=== PATIENT | female | born 1930 | race Caucasian/White ===

== ENCOUNTER 2016-06-29 14:26 | Inpatient (IN) | payer MEDICARE, BC ==
[~2016-06-29] VITALS: Ht 162.6 cm; Wt 65.1 kg
[~2016-06-29 14:26] MED LIST: ACET-3088 PO; AMIO200T2 PO; ASPI-611 PO; BENZ-16 PEG; CYAN250010 PO; DOCU-168 PO; GUAI-782 PO; LEVO75TA57 PO; MEMA28CA PO; MULT-1243 PO; NITR100C4 PO; SITA1TAB8 PO
--- NOTE | 2016-06-29 14:55 | NUR ---
PROVIDER DR URBAN IN ROOM WITH PT.
[2016-06-29] MEDS ORDERED: LEVO50TA11 PO (15:03)
[2016-06-29] MEDS ORDERED: SITA1TAB2 PO (15:05)
--- NOTE | 2016-06-29 15:12 | NUR ---
LAB AT BEDSIDE FOR BLOOD DRAW.
[2016-06-29 15:28] LABS: BASOPHILS % (AUTO) 0.6 % (0-2); EOSINOPHILS # (AUTO) 0.2 T/MM3 (0-0.5); EOSINOPHILS % (AUTO) 2.7 % (0-4); HCT - HEMATOCRIT 39.2 % (36-46); HGB - HEMOGLOBIN 12.8 GM/DL (12-16); IMMATURE GRANULOCYTE # (AUTO) 0.03 T/MM3 (0.00-0.03); IMMATURE GRANULOCYTE % (AUTO) 0.4 % (0.0-0.5); LYMPHOCYTES # (AUTO) 1.4 T/MM3 (1-4.8); LYMPHOCYTES % (AUTO) 19.2 % (23-45); MEAN CORPUSCULAR HGB 31.1 UUG (26-34); MEAN CORPUSCULAR HGB CONC(MCHC 32.7 GM/DL (31-37); MEAN CORPUSCULAR VOLUME 95.1 UM3 (80-100); MEAN PLATELET VOLUME 8.7 UM3 (9.4-12.4); MONOCYTES # (AUTO) 0.5 T/MM3 (0-0.8); MONOCYTES % (AUTO) 7.3 % (0-9.0); NEUTROPHILS #(AUTO)-ABSOLUTE 4.9 T/MM3 (1.8-7.7); NEUTROPHILS % (AUTO) 69.8 % (33-66); RED BLOOD COUNT 4.12 M/MM3 (4.00-5.20)
[2016-06-29 15:40] LABS: ALBUMIN 3.3 G/DL (3.5-5.0); ALBUMIN/GLOBULIN RATIO 1.1 RATIO (1.1-2.2); ALKALINE PHOSPHATASE 71 U/L (38-126); ALT (SGPT) 25 U/L (9-52); ANION GAP 11 MEQ/L (5-15); AST (SGOT) 30 U/L (14-36); BUN/CREATININE RATIO 24 RATIO (6-26); CALCIUM 8.8 MG/DL (8.4-10.2); CHLORIDE 109 MEQ/L (98-107); CO2 - CARBON DIOXIDE 25 MEQ/L (22-30); CREATININE 0.8 MG/DL (0.7-1.2); GLOMERULAR FILTRATION RATE 68; GLUCOSE 129 MG/DL (65-110); POTASSIUM 4.5 MEQ/L (3.6-5); SODIUM 145 MEQ/L (134-144); TOTAL PROTEIN 6.3 G/DL (6.3-8.2)
--- NOTE | 2016-06-29 15:43 | NUR ---
LAB AT BEDSIDE FOR REDRAW.
--- NOTE | 2016-06-29 15:53 | NUR ---
RADIOLOGY PT TO RADIOLOGY BY CART AT THIS TIME.
[2016-06-29 16:00] LABS: BLOOD, URINE NEGATIVE (NEGATIVE); COLOR,URINE YELLOW (YELLOW); LEUKOCYTE ESTERASE ,URINE NEGATIVE (NEGATIVE); NITRITE,URINE NEGATIVE (NEGATIVE); UROBILINOGEN,URINE 0.2 EU/DL (NORMAL)
--- NOTE | 2016-06-29 16:37 | NUR ---
PROVIDER DR. URBAN AT BEDSIDE TO SPEAK WITH PT AND FAMILY.
--- NOTE | 2016-06-29 17:02 | ERPDOC ---
Departure Disposition Decision Date: Jun 29, 2016 Disposition Decision Time: 16:40 Disposition: [facility] TO [facility] Impression Impression Impression: Primary Impression: Syncope Syncope type: unspecified Qualified Codes: R55 - Syncope and collapse Severity: Moderate Condition: Improved Seen By: Physician only Referrals: NINA GUTIERREZ MD (Family) Problems/Meds/Labs Reviewed?: Yes Medications reviewed and manag: Yes Follow up care ordered?: Yes Mental Status: Alert, Confused HPI - General Medical General Chief Complaint: Altered Mental Status Stated Complaint: SYNCOPE, AMS Time Seen by Provider: 14:41 Source: patient, family, EMS Exam Limitations: dementia HPI - General Medical Initial Comments 86-year-old female presents to the emergency department with a chief complaint of a syncopal episode while sitting on the toilet and having her daughter drying her hair earlier today. Patient did not fall from the toilet. Patient has a history of syncopal episodes in the past associated with urinary tract infection. Daughter states the patient was unresponsive for a longer time frame than normal and was slightly more confused than baseline when the patient awoke. Patient denies any pain or discomfort. No other complaints or associated symptoms. No exacerbating or remitting factors. Patient was at home when her symptoms began. Symptoms have improved prior to arrival to the emergency department. Patient was transported by EMS to [facility]. Patient is a DO NOT RESUSCITATE. Occurred At: home Allergies: Coded Allergies: lisinopril (Verified Allergy, Severe, 06/29/16) Past History Patient Surgical History Lab briseyda KEVIN Past Medical History Metabolic: diabetes, hypercholesterolemia, hypertension, hypothyroidism Cardiac: A-fib GI: constipation Neurological: CVA, TIA Psychological: dementia Surgical History General: colonoscopy, gallbladder Cardiac: other Reproductive/: hysterectomy Joint: knee Family History Family PMH: FOUND: other Vaccines Hx Influenza Vaccination: Yes (02/2016) Hx Pneumococcal Vaccination: No (unsure) Social History Smoking Status: Never smoker Does patient use chewing tobac: No Second Hand Exposure: No Substance Use Type: does not use Alcohol Intake: none Marital Status: Housing: house Household Members: family Review of Systems Constitutional Constitutional: DENIES: chills, fever Eyes General: DENIES: erythema, exudate Lids/Accessories: DENIES: erythema, swelling Vision: DENIES: acuity, blurring ENMT Ears: DENIES: drainage, erythema Hearing: DENIES: hearing loss Balance: DENIES: ataxia, falling to one side Sinuses: DENIES: congestion, pain Nose: DENIES: nosebleeds, pain Mouth/Throat: DENIES: painful swallowing, sore throat Teeth: DENIES: pain Jaw: DENIES: pain Cardiovascular Cardiac: DENIES: chest pain, dyspnea on exertion Rhythm/Rate: DENIES: irregular beat, palpitations Vascular: DENIES: pedal edema, unilateral swelling Pulmonary Respiratory: DENIES: cough, dyspnea, pleuritic chest pain, sputum GI Upper Abdomen: DENIES: nausea, pain, vomiting Lower Abdomen: DENIES: diarrhea, pain General: DENIES: dysuria, urgency Musculoskeletal General: DENIES: pain, tenderness Integumentary Skin: DENIES: itching, rash Neurological General: DENIES: headache, numbness, weakness Psychiatric Psychiatric: DENIES: emotional instability, suicidal ideation/attempt Endocrine Endocrine: DENIES: polydipsia, polyphagia Hematologic/Lymphatic Hematologic/Lymphatic: DENIES: frequent nosebleeds, lymphadenopathy Allergic/Immunological Allergic/Immunoligical: DENIES: frequent infections, hives Physical Exam General General Nourishment: well nourished, well developed, appears stated age, no acute distress, adult General Body Habitus: well groomed Vitals and Pain First Documented Vital Signs Date Time Temp Pulse Resp B/P Pulse Ox O2 Delivery O2 Flow Rate FiO2 06/29/16 14:30 98.3 72 14 115/97 94 Room Air Weight: Kilograms: 64.500 Height (feet): 5 Height (inches): 5.00 Triage Pain Scale: RN VS reviewed by Provider: Yes Normal Exams: Head: Normocephalic w/o trauma Eyes: Pupils are PERRLA w/ EOMI, No scleral icterus, irritation, or foreign bodies noted ENMT: No facial trauma, nasal exudates, pharyngeal erythema, or exudates are noted Dental: No fractured, loose, or missing teeth noted Neck: Full range of motion, without adenopathy, JVD, bruits or thyromegaly Chest/Resp: Clear all gaines, with good airflow, and symmetry bilaterally CV: Regular rate and rhythm, without murmur or gallop, Pulses 2+ all extremities, capillary refill, <2 seconds all ext., no pedal edema noted Abdomen: Bowel sounds positive, soft, non-tender, non-distended, no hepatosplenomegaly, masses or bruits noted Lymphatic: No lymphadenopathy, or lymphedema noted Musculoskeletal: No tenderness, or deformity noted, good range of motion, all extremities Integumentary: No rashes, hives, or bruising noted, hair and nails, without abnormality Neurologic: Patient is alert Psychiatric: Patient exhibits, appropriate attention, emotion and affect Neck (brief) Neck: NOT FOUND: tenderness Neurologic (brief) Comments Patient is alert and oriented times 2-3. No focal neurologic deficit observed. Differential Diagnoses Considering: Hypo/Hyperglycemia, Medication Effect, Metabolic, UTI, Other ( Syncope) Progress Results/Orders Orders Procedure Category Date Status Time Cbc W/Auto LAB 06/29/16 Complete Diff-Reflex Manual Cmp - Comprehensive LAB 06/29/16 Complete Metabolic Troponin I W LAB 06/29/16 Complete Hemolysis Index Catheterize For Ua TRAVIS 06/29/16 In Process 15:00 Ua, Dip Wreflex LAB 06/29/16 Complete Microsc & Laborer [employer] Crew 15:00 EKG EKG 06/29/16 Taken Chest 1 View RAD 06/29/16 Taken 15:00 Ct Head W/O Contrast CT 06/29/16 Taken 15:00 Ct Cervical Spine W/O CT 06/29/16 Taken Contrast 15:00 Lab Results Laboratory Tests Test 06/29/16 15:28 06/29/16 15:41 White Blood Count 7.0T/MM3 Red Blood Count 4.12M/MM3 Hemoglobin 12.8GM/DL Hematocrit 39.2% Mean Corpuscular Volume 95.1UM3 Mean Corpuscular Hemoglobin 31.1UUG Mean Corpuscular Hemoglobin Concent 32.7GM/DL RDW Standard Deviation 46.6FL Platelet Count 186T/MM3 Mean Platelet Volume 8.7UM3 Immature Granulocyte % (Auto) 0.4% Neutrophils (%) (Auto) 69.8% Lymphocytes (%) (Auto) 19.2% Monocytes (%) (Auto) 7.3% Eosinophils (%) (Auto) 2.7% Basophils (%) (Auto) 0.6% Absolute Immature Granulocyte (auto 0.03T/MM3 Absolute Neutrophils (auto) 4.9T/MM3 Absolute Lymphocytes (auto) 1.4T/MM3 Absolute Monocytes (auto) 0.5T/MM3 Absolute Eosinophils (auto) 0.2T/MM3 Absolute Basophils (auto) 0.0T/MM3 Turbidity < 20 Sodium Level 145MEQ/L Potassium Level 4.5MEQ/L Chloride Level 109MEQ/L Carbon Dioxide Level 25MEQ/L Anion Gap 11MEQ/L Blood Urea Nitrogen 19.0MG/DL Creatinine 0.8MG/DL Glomerular Filtration Rate Calc 68 BUN/Creatinine Ratio 24RATIO Glucose Level 129MG/DL Calculated Osmolality 283MOSM/KG Calcium Level 8.8MG/DL Total Bilirubin 0.90MG/DL Icterus Index < 2 Aspartate Amino Transf (AST/SGOT) 30U/L Alanine Aminotransferase (ALT/SGPT) 25U/L Alkaline Phosphatase 71U/L Troponin I < 0.012ng/ml Total Protein 6.3G/DL Albumin 3.3G/DL Globulin 3.0G/DL Albumin/Globulin Ratio 1.1RATIO Chemistry Specimen Hemolysis 40 Urine Collection Type Straight cath Urine Color Yellow Urine Turbidity Clear Urine pH 7.0 Urine Specific [place] 1.015 Urine Protein Negative Urine Glucose (UA) Negative Urine Ketones Negative Urine Blood Negative Urine Nitrite Negative Urine Bilirubin Negative Urine Urobilinogen 0.2EU/DL Urine Leukocyte Esterase Negative Urinalysis Comment Microscopic not ind. Progress Progress Labs/imaging were discussed in detail with the patient and family and questions are answered. Patient is given IV hydration gently in the emergency department. Patient is still "more confused than normal" per daughter. Patient is discussed with Dr. Box and will be admitted to the hospitalist service in observation status for further evaluation and treatment. Patient and family are in agreement with the current plan of management. Patient is admitted to the hospital in improved condition. No further orders from accepting physician who is in agreement with the current plan of management. EKG EKG : Rate: 60-100 Rhythm: sinus [place]: normal QRS: normal Intervals: normal ST/T: non-specific changes Interpreted by: signing physician Xray Xray : Xray: CXR Portable Interpretation: Normal, Interpreted by Ak CT CT : CT: Head no contrast Interpretation: Normal (cervical spine: Negative.), Reviewed Written Report CASSANDRA URBAN DO Jun 29, 2016 17:02
--- NOTE | 2016-06-29 17:13 | NUR ---
REPORT CALLED TO CELIO MAGDALENO ON MEDICAL UNIT. DENIES QUESTIONS.
--- NOTE | 2016-06-29 17:20 | NUR ---
IVF ORDERS REC'D TO STOP IVF AFTER APPROX. 800CC TOTAL IVF INFUSED FROM EMS BAG AT THIS TIME.
--- NOTE | 2016-06-29 17:30 | NUR ---
ADMIT PT TAKEN TO MEDICAL UNIT, RM 159 BY CART PER THIS RN AT THIS TIME. PT SLID TO MEDICAL BED WITH DRAW SHEET. PT CONTINUES TO DENY COMPLAINT.
[2016-06-29 17:36] VITALS: BP 133/73; PULSE 80; RESP 18; TEMP 98.5; O2SAT 98
[2016-06-29 17:41] VITALS: Ht 162.6 cm; Wt 65.1 kg
--- NOTE | 2016-06-29 18:10 | NUR ---
admit Pt to room at 1730 via cart, daughter with her. V/S taken and stable on RA. Pt A/O x2(year ?). Admission HX taken with daughters help.
[2016-06-29] MEDS ORDERED: NORMAL SALINE 1,000 ML IV ONE (18:15)
--- NOTE | 2016-06-29 19:02 | NUR ---
Ambulation Able to ambulate to restroom with gait belt and one person assist.
[2016-06-29] MEDS ORDERED: ACETAMINOPHEN 325 MG TABLET PO PRN (20:00)
[2016-06-29] MEDS ORDERED: MILK OF MAGNESIA 30 ML SUSP PO PRN (20:00)
--- NOTE | 2016-06-29 20:10 | HPPDOC ---
HPI - Adult Date DATE: 06/29/16 TIME: 19:34 General Chief Complaint: syncope History of Present Illness Mrs. La is an 86-year-old female with severe aortic stenosis managed by Dr. Garcia. Her daughter provides history indicating that the valve is not thought to be surgically manageable. She has had abrupt syncopal episodes twice previously in August and March 2016 and was found to have urinary tract infections on both occasions. She is currently being treated for UTI with Macrobid after failing Bactrim and Cipro. She has been less conversant and more confused than normal recently per history of her home caregivers but oral intake has been good and there is been no nausea or diarrhea. This morning after having usual breakfast and bathing the patient lost consciousness while seated. Her daughter reports that she was calm and her mother's hair at which time her mother's eyes rolled back in her head slumped backwards into the right striking the wall. EMS was summoned and the patient was hypotensive when they arrived and remained minimally responsive on arrival in the ER. With prior syncopal episodes the patient has regained consciousness and returned to usual level mental status quickly. Her evaluation was unremarkable including noncontrast CT head without acute pathology. Cervical spine CT without acute pathology, and unremarkable labs including urinalysis. The patient received some IV fluids which seemed to help but because she remained dull and less interactive than normal she is being hospitalized on an observation basis for further monitoring. The patient's daughter supplementally reports that the patient's blood pressure was low when EMS arrived although value is uncertain. Initial blood pressure in the emergency room was 115/97 and has remained stable since arrival. Patient provides virtually no history and responds no the few questioned she does answer including whether she had chest pain, lightheadedness, nausea, or remembers feeling poorly earlier today. Past Medical History Past Medical History Severe Aortic Stenosis. Dr. Garcia Hypothyroid Hemorrhagic stroke in 2011 History atrial fibrillation Hypotension Recurrent urinary tract infections Dementia Diabetes mellitus RSV bronchitis-May 2016 Surgical History Patient's Surgical History: Lap briseyda KEVIN Right TKA Current Medications Home Meds Reported Medications Sitagliptin Phos/Metformin HCl (Janumet 50-500 mg Tablet) 1 Tab Tablet, 1 TAB PO BID 06/29/16 Levothyroxine Sodium (Levothyroxine Sodium) 50 Mcg Tablet, 50 MCG PO ACB 3/11/17 Nitrofurantoin Monohyd/M-Cryst (Macrobid 100 mg Capsule) 100 Mg Capsule, 100 MG PO BID 05/22/16 Cyanocobalamin (Vitamin B-12) (Vitamin B12) 2,500 Mcg Tablet, 2500 MCG PO DAILY 03/31/16 Multivits-Min/FA/Lycopene/Lut (Centrum Silver Tablet) 1 Each Tablet, 1 TAB PO DAILY 03/31/16 Amiodarone HCl (Amiodarone HCl) 200 Mg Tablet, 100 MG PO DAILY 03/31/16 Docusate Sodium (Colace) 100 Mg Capsule, 100 MG PO DAILY, CAP 09/05/15 Memantine HCl (Namenda Xr) 28 Mg Cap.spr.24, 28 MG PO DAILY, CAP 09/05/15 Aspirin (Aspirin) 81 Mg Tablet, 81 MG PO DAILY 09/04/12 Allergies: Coded Allergies: lisinopril (Verified Allergy, Severe, 06/29/16) Family History Family History: Sister had colon cancer Social History Smoking Status: Never smoker Does patient use chewing tobac: No Second Hand Exposure: No Substance Use Type: does not use Alcohol Intake: none Marital Status: Housing: house (lives with daughter, caretakers when daughter unavailable) Household Members: family Advance Directives: Yes DPOA for Healthcare Only (daughter), Yes Limited Code ( chemical code only-no CPR/intubation/defibrillation) Social History Comments PCP-Dr. Caballero Cardiology-Dr. Sage Garcia Review of Systems Unable to Obtain ROS Due to: clinical condition, dementia All Other Systems Comments Limited review of systems provided by the patient's daughter and shank archer to indicate the patient always complains of feeling cold and tired. She was constipated last week and had difficulty with hemorrhoids with small amount of rectal bleeding. She was given milk of magnesia daily but has not had any diarrhea as a result although has had several large bowel movements. She's had no nausea or vomiting and is drinking fluids and maintaining good oral intake. She is typically on a soft diet because dentures do not fit well. She's had some recent weight loss. No respiratory symptoms were reported and no seizure activity described with acute event. Physical Exam General Vital Signs Vital Signs Date Time Temp Pulse Resp B/P Pulse Ox O2 Delivery O2 Flow Rate FiO2 06/29/16 17:36 98.5 80 18 133/73 98 Room Air EXAM General-NAD, drowsy, responds to voice, elderly female HEENT-PERRL, EOMI, conjunctiva clear, sclera anicteric, conjugate gaze, oral membranes clear and tongue midline, neck supple without adenopathy Lungs-respirations nonlabored, airflow good and breath sounds clear anteriorly and laterally Cardiac-regular rhythm, S1-S2, 2/6 systolic ejection murmur most prominent at the right upper sternal border, delayed carotid upstroke Abdomen-soft, nontender, without palpable mass or organomegaly, bowel sounds present Extremities-without edema Skin-without generalized rash or evidence of skin breakdown/wounds Neuro-mild right nasolabial fold flattening, EOMI, tongue midline; generalized motor weakness but able to raise each leg off the bed. [place] are graded 4/5 but the patient is unable to raise her arms up and hold them independently (may not understand commands), normal motor tone, minor fine rest tremor right hand. Sensation intact to light touch 4 extremities Psych-drowsy but cooperative, oriented to name Height (Feet): 5 Height (Inches): 4.00 Neurologic RN Documented GCS Eye Opening: (4)Spontaneous Verbal: (4)Confused Motor: (6)Obeys Commands Total: Laboratory Laboratory Tests Test 06/29/16 15:28 06/29/16 15:41 White Blood Count 7.0T/MM3 Red Blood Count 4.12M/MM3 Hemoglobin 12.8GM/DL Hematocrit 39.2% Mean Corpuscular Volume 95.1UM3 Mean Corpuscular Hemoglobin 31.1UUG Mean Corpuscular Hemoglobin Concent 32.7GM/DL RDW Standard Deviation 46.6FL Platelet Count 186T/MM3 Mean Platelet Volume 8.7UM3 Immature Granulocyte % (Auto) 0.4% Neutrophils (%) (Auto) 69.8% Lymphocytes (%) (Auto) 19.2% Monocytes (%) (Auto) 7.3% Eosinophils (%) (Auto) 2.7% Basophils (%) (Auto) 0.6% Absolute Immature Granulocyte (auto 0.03T/MM3 Absolute Neutrophils (auto) 4.9T/MM3 Absolute Lymphocytes (auto) 1.4T/MM3 Absolute Monocytes (auto) 0.5T/MM3 Absolute Eosinophils (auto) 0.2T/MM3 Absolute Basophils (auto) 0.0T/MM3 Turbidity < 20 Sodium Level 145MEQ/L Potassium Level 4.5MEQ/L Chloride Level 109MEQ/L Carbon Dioxide Level 25MEQ/L Anion Gap 11MEQ/L Blood Urea Nitrogen 19.0MG/DL Creatinine 0.8MG/DL Glomerular Filtration Rate Calc 68 BUN/Creatinine Ratio 24RATIO Glucose Level 129MG/DL Calculated Osmolality 283MOSM/KG Calcium Level 8.8MG/DL Total Bilirubin 0.90MG/DL Icterus Index < 2 Aspartate Amino Transf (AST/SGOT) 30U/L Alanine Aminotransferase (ALT/SGPT) 25U/L Alkaline Phosphatase 71U/L Troponin I < 0.012ng/ml Total Protein 6.3G/DL Albumin 3.3G/DL Globulin 3.0G/DL Albumin/Globulin Ratio 1.1RATIO Chemistry Specimen Hemolysis 40 Urine Collection Type Straight cath Urine Color Yellow Urine Turbidity Clear Urine pH 7.0 Urine Specific [place] 1.015 Urine Protein Negative Urine Glucose (UA) Negative Urine Ketones Negative Urine Blood Negative Urine Nitrite Negative Urine Bilirubin Negative Urine Urobilinogen 0.2EU/DL Urine Leukocyte Esterase Negative Urinalysis Comment Microscopic not ind. EKG EKG reviewed by myself-sinus rhythm without acute changes Radiology CT of the head reviewed by myself revealing no acute pathology, encephalomalacia involving the right occipital, right temporal, and left parietal regions consistent with old stroke. Chest x-ray also reviewed by myself-unremarkable. CT of cervical spine negative for fracture, moderate disc space narrowing and neural foraminal narrowing reported by radiology. Assessment & Plan Assessment 1. Syncope 2. Severe aortic stenosis 3. Altered mental status/somnolence 4. Dementia 5. UTI 6. Diabetes mellitus 7. Possible dehydration Mrs. La is admitted after syncopal episode with prolonged decreased level of consciousness. Of note the patient has been less interactive and more confused prior to hospitalization after treatment was initiated as an outpatient more than a week ago for UTI with subsequent change in antibiotics from Bactrim to Cipro to Macrobid several days ago. Urine is currently unremarkable-Macrobid will be continued. Blood pressure has been stable since arrival, orthostatic vital signs will be obtained and patient will be monitored on telemetry. Initial troponin was unremarkable and EKG was without acute change. Patient denies chest pain however her history is unreliable. Troponin will be repeated this evening and if it is unchanged no further ischemic workup will be pursued. Additional fluids will be given overnight. Possibility of drop attacks was discussed with the patient's daughter in conjunction with generalized hypoperfusion due to aortic stenosis. Neuro checks will be monitored overnight and if stable discharge is anticipated tomorrow. Low-volume IV fluids will be continued although laboratory data is unchanged from recent hospitalization for RSV. Plan/Intensity of Service Old records reviewed, discussed with Dr. Collins, head CT and chest x-ray reviewed by myself. Laboratory data reviewed, supplemental history provided by the patient's daughter and caregivers. Code Status Do Not Resuscitate Hospital Course Summary Disclaimer The hospital course summary below is not to be considered part of the above Progress Note. Hospital Course Summary 06/29 Mrs. La is admitted after syncopal episode with prolonged decreased level of consciousness. Of note the patient has been less interactive and more confused prior to hospitalization after treatment was initiated as an outpatient more than a week ago for UTI with subsequent change in antibiotics from Bactrim to Cipro to Macrobid several days ago. Urine is currently unremarkable-Macrobid will be continued. Blood pressure has been stable since arrival, orthostatic vital signs will be obtained and patient will be monitored on telemetry. Initial troponin was unremarkable and EKG was without acute change. Patient denies chest pain however her history is unreliable. Troponin will be repeated this evening and if it is unchanged no further ischemic workup will be pursued. Additional fluids will be given overnight. Possibility of drop attacks was discussed with the patient's daughter in conjunction with generalized hypoperfusion due to aortic stenosis. Neuro checks will be monitored overnight and if stable discharge is anticipated tomorrow. Low-volume IV fluids will be continued although laboratory data is unchanged from recent hospitalization for RSV. CHRISTOFER STEEN MD Jun 29, 2016 19:37
[2016-06-29] MEDS: LR 1,000 ML IV SCH (20:24)
[2016-06-29 21:00] VITALS: BP 97/59; PULSE 80
[2016-06-29] MEDS ORDERED: NITROFURANTOIN (Macrobid) 100mg CAP PO SCH (21:00)
[2016-06-29 21:39] VITALS: BP_SYST 101; BP_SYST 90; BP_DIAS 54; BP_DIAS 63; PULSE 82; PULSE 85
[2016-06-30] VITALS (8 sets, daily range): BP systolic 82–133; BP diastolic 50–87; PULSE 64–83; RESP 16–20; TEMP 98.1–98.5; O2SAT 95–97
[2016-06-30 05:36] LABS: BASOPHILS % (AUTO) 0.6 % (0-2); EOSINOPHILS # (AUTO) 0.2 T/MM3 (0-0.5); EOSINOPHILS % (AUTO) 3.7 % (0-4); HCT - HEMATOCRIT 36.4 % (36-46); HGB - HEMOGLOBIN 11.7 GM/DL (12-16); IMMATURE GRANULOCYTE # (AUTO) 0.01 T/MM3 (0.00-0.03); IMMATURE GRANULOCYTE % (AUTO) 0.2 % (0.0-0.5); LYMPHOCYTES # (AUTO) 1.7 T/MM3 (1-4.8); LYMPHOCYTES % (AUTO) 26.6 % (23-45); MEAN CORPUSCULAR HGB 31.4 UUG (26-34); MEAN CORPUSCULAR HGB CONC(MCHC 32.1 GM/DL (31-37); MEAN CORPUSCULAR VOLUME 97.6 UM3 (80-100); MEAN PLATELET VOLUME 8.9 UM3 (9.4-12.4); MONOCYTES # (AUTO) 0.5 T/MM3 (0-0.8); MONOCYTES % (AUTO) 7.9 % (0-9.0); NEUTROPHILS #(AUTO)-ABSOLUTE 3.9 T/MM3 (1.8-7.7); RED BLOOD COUNT 3.73 M/MM3 (4.00-5.20); WBC - WHITE BLOOD COUNT 6.5 T/MM3 (4.5-11.0)
[2016-06-30] MEDS: LEVOTHYROXINE 50 MCG TABLET PO SCH (05:42)
[2016-06-30 05:44] LABS: ALBUMIN 3.1 G/DL (3.5-5.0); ANION GAP 8 MEQ/L (5-15); BUN/CREATININE RATIO 26 RATIO (6-26); CALCIUM 8.8 MG/DL (8.4-10.2); CHLORIDE 109 MEQ/L (98-107); CO2 - CARBON DIOXIDE 25 MEQ/L (22-30); CREATININE 0.9 MG/DL (0.7-1.2); GLOMERULAR FILTRATION RATE 59; GLUCOSE 112 MG/DL (65-110); MAGNESIUM 2.2 MG/DL (1.6-2.3); PHOSPHORUS 4.5 MG/DL (2.5-4.5); POTASSIUM 4.1 MEQ/L (3.6-5); SODIUM 142 MEQ/L (134-144)
--- NOTE | 2016-06-30 06:37 | NUR ---
SUMMARY PT SLEPT WELL THIS SHIFT. PT IS ALERT WITH CONFUSION. DENIED ANY PAIN. INCONTINENT OF B&B. PT REPOSITIONED BY STAFFS. CONTINUES ON IV FLUIDS THAT SHE TOLERATES WELL. PT WAS EDUCATED ABOUT THE USE OF CALL LIGHT AND SAFETY.
[2016-06-30] MEDS: METFORMIN 500 MG TABLET PO SCH ×2 (08:00→16:39)
[2016-06-30] MEDS: SITAGLIPTIN 100 MG TABLET PO SCH ×2 (08:00→16:39)
[2016-06-30] MEDS: MEMANTINE 5 MG TABLET PO SCH (09:00)
[2016-06-30] MEDS: AMIODARONE 200 MG TABLET PO SCH (09:00)
[2016-06-30] MEDS: MEMANTINE 10 MG TABLET PO SCH (09:00)
[2016-06-30] MEDS: CYANOCOBALAMIN (B-12) 500mcg TABLET PO SCH (10:06)
--- NOTE | 2016-06-30 10:06 | DI ---
Indication: ITS.REASON: syncope PROCEDURE: CHEST 1 VIEW: Encounter: Initial Comparison: May 22, 2016 Findings: The lungs are stable in appearance without new focal airspace consolidation. There is no pleural effusion or pneumothorax. The heart size, pulmonary vascularity and mediastinal contours are unchanged. IMPRESSION: Stable appearance of the chest without acute cardiopulmonary disease. .
[2016-06-30] MEDS: MULTIVITAMIN + MINERAL TABLET PO SCH (10:07)
--- NOTE | 2016-06-30 10:07 | DI ---
Indication: ITS.REASON: syncope, fall with possible neck injury PROCEDURE: CT CERVICAL SPINE W/O CONTRAST: Encounter: Initial Comparison: None Technique: Axial CT images through the cervical spine were performed without contrast. Coronal and sagittal reformatted images were also obtained. Automated Exposure Control and Iterative Reconstruction dose reducing techniques were utilized. FINDINGS: The alignment of the cervical spine is normal. Multilevel degenerative changes are present. There is no evidence of acute fracture or subluxation of the cervical spine. The atlantoaxial articulation, dens, and upper cervical spine demonstrate no subluxation. The paraspinal soft tissues and spinal canal appear unremarkable. IMPRESSION: No acute traumatic abnormality of the cervical spine. There is a preliminary report by [facility]. .
[2016-06-30] MEDS: NITROFURANTOIN (Macrobid) 100mg CAP PO SCH ×2 (10:08→16:39)
--- NOTE | 2016-06-30 10:08 | DI ---
Indication: ITS.REASON: syncope and fall with minor head trauma PROCEDURE: CT HEAD W/O CONTRAST: Encounter: Initial Comparison: May 22, 2016 Technique: Axial CT images through the head were performed without contrast. Iterative Reconstruction dose reducing technique was utilized. FINDINGS: Moderate generalized atrophy. Prominent old right occipital lobe infarct with bilateral frontal lobe infarcts with encephalomalacia. The ventricles are of normal size, shape, and configuration for the patient's age. There is no evidence of acute intracranial hemorrhage, midline displacement, or mass effect. There are scattered areas of low attenuation in the white matter which most likely represent changes of chronic microvascular ischemia. The CT attenuation of the brain parenchyma is otherwise normal within the cerebellum, brain stem, and cerebral hemispheres. The tympanic cavities and mastoid air cells are free of appreciable disease. There are no definite fractures of the skull base, calvarium, or visualized portion of the midface. IMPRESSION: No CT evidence of acute traumatic intracranial injury. There is a preliminary report by [facility]. .
[2016-06-30] MEDS: ASPIRIN 81 MG CHEWABLE TABLET PO SCH (10:09)
[2016-06-30] MEDS: DOCUSATE SODIUM 100 MG CAPSULE PO SCH (10:09)
--- NOTE | 2016-06-30 11:21 | PNPDOC ---
CAMILLE JURADO THRESHING DEPARTMENT SUPERVISOR 06/30/16 1115: Subjective Date DATE: 06/30/16 TIME: 11:11 Subjective Mrs. La is resting quietly. Arouses easily. States "I don't know" when I asked how she is feeling. States that her legs hurt, but only when I lightly touched them. Does not report other c/o. BP was running low- 82/51 this morning per RN. Objective Vital Signs Vital signs Vital Signs Date Time Temp Pulse Resp B/P Pulse Ox O2 Delivery O2 Flow Rate FiO2 06/30/16 10:16 74 127/68 06/30/16 09:09 95 Room Air 06/30/16 08:34 98.1 18 Height (Feet): 5 Height (Inches): 4.00 Weight (Kilograms): 64.700 General General Appearance: Alert, Cooperative, No Acute Distress Neck (Brief) Neck: FOUND: midline, NOT FOUND: JVD, nuchal rigidity, spasm Respiratory (Brief) Respiratory: FOUND: clear all gaines, equal bilaterally, symmetrical, NOT FOUND : rales, wheezes Cardiovascular (Brief) Cardiac: FOUND: murmur, regular rate, regular rhythm, NOT FOUND: pedal edema Abdomen (Brief) Abdominal: FOUND: BS normo active x4, soft, NOT FOUND: distended, tender Extremities (Brief) Extremity : Extremity Finding: NOT FOUND: edema Psychiatric (Brief) Psychiatric: FOUND: alert Laboratory Laboratory Laboratory Tests 06/29/16 15:28 06/30/16 05:15 Laboratory Tests 06/29/16 15:28 06/30/16 05:15 Radiology Reviewed. Assessment & Plan Problems: (1) Dehydration Status: Acute (2) Altered mental status Status: Acute Qualifiers: Altered mental status type: unspecified Qualified Codes: R41.82 - Altered mental status, unspecified (3) Syncope Status: Acute Qualifiers: Syncope type: unspecified Qualified Codes: R55 - Syncope and collapse (4) Aortic stenosis, severe Status: Chronic (5) NIDDM Status: Chronic (6) Dementia Status: Chronic (7) Recurrent UTI Status: Chronic Assessment 06/30/16- Patient remains hypotensive. Unsure of baseline. She does have known severe , nonoperative. Continue gentle IVF as she still looks a little dry on her labs. Possible dehydration vs. drop attack from . (Dr. Garcia). (recent RSV) Continue Amiodarone. She is not on diuretics or BP meds. Continue Macrobid for UTI. (recently on Cipro and Bactrim) Continue metformin, januvia for BG control- BG appears fairly stable. Plan is to return home with her caregiver when she is stable for discharge. Continue to observe today given ongoing lower BP. Recheck labs in AM for stability and monitor orthostatic changes. Code Status Limited Code Hospital Course Summary Disclaimer The hospital course summary below is not to be considered part of the above Progress Note. Hospital Course Summary 06/29 Mrs. La is admitted after syncopal episode with prolonged decreased level of consciousness. Of note the patient has been less interactive and more confused prior to hospitalization after treatment was initiated as an outpatient more than a week ago for UTI with subsequent change in antibiotics from Bactrim to Cipro to Macrobid several days ago. Urine is currently unremarkable-Macrobid will be continued. Blood pressure has been stable since arrival, orthostatic vital signs will be obtained and patient will be monitored on telemetry. Initial troponin was unremarkable and EKG was without acute change. Patient denies chest pain however her history is unreliable. Troponin will be repeated this evening and if it is unchanged no further ischemic workup will be pursued. Additional fluids will be given overnight. Possibility of drop attacks was discussed with the patient's daughter in conjunction with generalized hypoperfusion due to aortic stenosis. Neuro checks will be monitored overnight and if stable discharge is anticipated tomorrow. Low-volume IV fluids will be continued although laboratory data is unchanged from recent hospitalization for RSV. 06/30/16- Patient remains hypotensive. Unsure of baseline. She does have known severe , nonoperative. Continue gentle IVF as she still looks a little dry on her labs. Possible dehydration vs. drop attack from . (Dr. Garcia). (recent RSV) Continue Amiodarone. She is not on diuretics or BP meds. Continue Macrobid for UTI. (recently on Cipro and Bactrim) Continue metformin, januvia for BG control- BG appears fairly stable. Plan is to return home with her caregiver when she is stable for discharge. Continue to observe today given ongoing lower BP. Recheck labs in AM for stability and monitor orthostatic changes. CHRISTOFER STEEN MD 06/30/16 0959: Assessment & Plan Assessment I have independently evaluated and examined this patient. I reviewed the chart, the patient's history, and the THRESHING DEPARTMENT SUPERVISOR's documented findings as above. We discussed and formulated the assessment and plan as above with additions as below: Mrs. La was seen with caregiver at the bedside. She denied lightheadedness or dyspnea but clarified indicating that she really didn't remember. She was resting comfortably in bed at the time of assessment. Hypotension present earlier today as noted but subsequently able to stand at which time blood pressure was 127/68. Blood pressures are variable with most recent supine blood pressure 107/53. Oral intake poor. Respirations are nonlabored and anterior breath sounds are clear. Cardiac rhythm is regular with prominent systolic ejection murmur. Telemetry strips to date have been sinus rhythm. Given documented hypotension patient converted to inpatient and will continue hydration overnight, reassess in the morning. Outpatient records reviewed, recent urine culture positive for enterococcus but I could not identify sensitivities. Nonetheless current UA unremarkable. No record of prior pneumonia vaccination per current provider or in via [place] records. Plan/Intensity of Service Laboratory data reviewed, outpatient records reviewed. CAMILLE JURADO APRN Jun 30, 2016 11:15 CHRISTOFER STEEN MD Jun 30, 2016 16:56
--- NOTE | 2016-06-30 11:54 | NUR ---
EMESIS CHALK MACHINE OPERATOR REPORTS PATIENT HAD SOME EMESIS. PT DENIES FEELING NAUSEATED NOW. REPORTS SHE DOES NOT HAVE AND APPETITE AND NOTHING TASTES GOOD.
--- NOTE | 2016-06-30 11:57 | NUR ---
BP YOLANDE OBRIEN NOTIFIED OF PATIENT DECREASED BP'S CHARTED THIS AM. NO NEW ORDERS RECEIVED.
[2016-06-30] MEDS: LR 1,000 ML IV SCH (16:40)
--- NOTE | 2016-06-30 17:26 | NUR ---
STATUS PT CONFUSED. ALERT TO STAFF. EQUAL STRENGTH NOTED IN EXTREMITIES. PT HAS BEEN INCONTINENT SO FAR THIS SHIFT. PT IS ON RA, DENIES SOA. DENIES NAUSEA. NO EMESIS SINCE EARLIER. PT REFUSED BREAKFAST AND LUNCH, DID EAT HALF A GRILLED CHEESE FOR HER CHIEF GUARD WHEN SHE CAME TO VISIT. PT AMBULATED TO THE DESK AND BACK WITH 2 ASSIST AND GAIT BELT. BED ALARM ON.
[2016-07-01 00:15] VITALS: BP 121/68; PULSE 71; RESP 18; TEMP 97.6; O2SAT 99
[2016-07-01] MEDS: LEVOTHYROXINE 50 MCG TABLET PO SCH (05:54)
[2016-07-01 05:55] LABS: BASOPHILS % (AUTO) 0.7 % (0-2); EOSINOPHILS # (AUTO) 0.2 T/MM3 (0-0.5); EOSINOPHILS % (AUTO) 3.7 % (0-4); HCT - HEMATOCRIT 36.7 % (36-46); IMMATURE GRANULOCYTE # (AUTO) 0.01 T/MM3 (0.00-0.03); IMMATURE GRANULOCYTE % (AUTO) 0.2 % (0.0-0.5); LYMPHOCYTES # (AUTO) 1.8 T/MM3 (1-4.8); LYMPHOCYTES % (AUTO) 31.2 % (23-45); MEAN CORPUSCULAR HGB 31.7 UUG (26-34); MEAN CORPUSCULAR HGB CONC(MCHC 32.7 GM/DL (31-37); MEAN CORPUSCULAR VOLUME 97.1 UM3 (80-100); MEAN PLATELET VOLUME 8.9 UM3 (9.4-12.4); MONOCYTES # (AUTO) 0.4 T/MM3 (0-0.8); MONOCYTES % (AUTO) 7.4 % (0-9.0); NEUTROPHILS #(AUTO)-ABSOLUTE 3.2 T/MM3 (1.8-7.7); NEUTROPHILS % (AUTO) 56.8 % (33-66); RED BLOOD COUNT 3.78 M/MM3 (4.00-5.20); WBC - WHITE BLOOD COUNT 5.7 T/MM3 (4.5-11.0)
[2016-07-01 06:08] LABS: ALBUMIN 3.1 G/DL (3.5-5.0); ANION GAP 8 MEQ/L (5-15); BUN/CREATININE RATIO 23 RATIO (6-26); CALCIUM 8.9 MG/DL (8.4-10.2); CHLORIDE 108 MEQ/L (98-107); CO2 - CARBON DIOXIDE 25 MEQ/L (22-30); CREATININE 0.7 MG/DL (0.7-1.2); GLOMERULAR FILTRATION RATE 79; GLUCOSE 90 MG/DL (65-110); MAGNESIUM 1.9 MG/DL (1.6-2.3); PHOSPHORUS 3.6 MG/DL (2.5-4.5); SODIUM 141 MEQ/L (134-144)
--- NOTE | 2016-07-01 06:54 | NUR ---
SUMMARY. PT SLEPT WELL THIS SHIFT. PT IS ALERT WITH CONFUSION. DENIED ANY PAIN. NO GRIMACING OR MOANING NOTED. PT IS INCONTINENT. ASSIST X 2 WITH REPOSITIONING AND CLEANING. PT CONTINUES ON IV FLUIDS THAT SHE TOLERATES WELL.
[2016-07-01 07:29] VITALS: BP 113/63; PULSE 70; RESP 18; TEMP 98.3; O2SAT 97
[2016-07-01 07:32] VITALS: BP 126/90; PULSE 72
[2016-07-01 07:34] VITALS: BP 123/68; PULSE 82
[2016-07-01] MEDS: NITROFURANTOIN (Macrobid) 100mg CAP PO SCH (08:38)
[2016-07-01] MEDS: CYANOCOBALAMIN (B-12) 500mcg TABLET PO SCH (08:38)
[2016-07-01] MEDS: ASPIRIN 81 MG CHEWABLE TABLET PO SCH (08:38)
[2016-07-01] MEDS: DOCUSATE SODIUM 100 MG CAPSULE PO SCH (08:39)
[2016-07-01] MEDS: METFORMIN 500 MG TABLET PO SCH (08:39)
[2016-07-01] MEDS: SITAGLIPTIN 100 MG TABLET PO SCH (08:39)
[2016-07-01] MEDS: MULTIVITAMIN + MINERAL TABLET PO SCH (08:41)
[2016-07-01] MEDS: AMIODARONE 200 MG TABLET PO SCH (08:43)
[2016-07-01] MEDS: MEMANTINE 10 MG TABLET PO SCH (08:43)
[2016-07-01] MEDS: MEMANTINE 5 MG TABLET PO SCH (08:43)
[2016-07-01] MEDS ORDERED: NAMENDA 28 MG PO SCH (09:00)
[2016-07-01] MEDS ORDERED: PNEUMOCOCCAL VAC. ADMIN. CHARGE INJ ONE (12:00)
[2016-07-01] MEDS ORDERED: PNEUMOCOCCAL 13 VACCINE 0.5 ML SYRINGE IM ONE (12:00)
--- NOTE | 2016-07-01 12:28 | NUR ---
CM THIS WORKER MET WITH PT AND DAUGHTER ON THIS DATE. DAUGHTER REPORTS THAT SHE HAS BEEN LIVING WITH HER MOTHER OVER THE LAST 4-5 YEARS. DAUGHTER REPORTED THAT SHE HAS HIRED A TOTAL OF 4 CAREGIVERS FOR HER MOTHER TO MAINTAIN HER AT HOME. DAUGHTER REPORTED THAT SHE WOULD NOT BE INTERESTED IN A INTERMEDIATE FOR HER MOTHER PT DECLINED WHILE AT A INTERMEDIATE PREVIOUSLY. PT HAS [facility]. FAMILY WOULD LIKE TO CONTINUE TO WITH. DAUGHTER DENIED ANY OTHER NEEDS AT THIS TIME. HAS ALL NEEDED ITEMS AT HOME TO CARE FOR PT. THIS WORKER LEFT CONTACT INFORMATION AND ENCOURAGED TO CONTACT THIS WORKER WITH ANY NEEDS. THIS WORKER OBTAINED ORDER TO [facility]ME HOME [facility] AND FAXED Claude MURRAY AT [phone]. ALSO SPOKE TO [facility] ON THIS DATE AND NOTIFIED OF DISCHARGE ON THIS DATE.
[2016-07-01] MEDS: LR 1,000 ML IV SCH (13:38)
[2016-07-01 13:42] VITALS: PULSE 74; RESP 16; O2SAT 97
--- NOTE | 2016-07-01 14:31 | NUR ---
Dm Screen Diet: Regular leadership intern spoke with patient's daughter about intake. The daughter states that her mother's food intake is only good/excellent when someone sits and eats with her. Daughter also states that her mother enjoys NSA strawberry mighty shakes and she was agreeable to having them as snacks at 10AM,2PM,HS.Daughter spoke with dietetic staff about foods her mother enjoys which are tomato soup and grilled cheese, vanilla boost, bread and honey, [place] Endave. Lastly, Daughter stated that her mother's blood sugars are never over the 130's and because of that felt there was no need for diabetes education. RD available at 1406 Addendum: 07/01/16 at [address] Student charting reviewed by Pet Sitter.
[2016-07-01] MEDS ORDERED: ACET-2321 PO (14:33)
--- NOTE | 2016-07-01 14:58 | DSPDOC ---
General Date Date DATE: 07/01/16 TIME: 14:38 Attending Physician Jolene Box MD Admitting Physician Jolene Box MD Consulting Physician Admitting Diagnosis Syncope, AMS, hypotension Discharge Diagnosis 1. Syncope, probable drop attack 2. Aortic stenosis 3. Encephalopathy 4. Recent UTI 5. Dehydration 6. Dementia 7. Diabetes mellitus, type 2 8. Hypotension, transient Laboratory Laboratory Tests Test 06/30/16 05:02 06/30/16 05:15 06/30/16 09:05 06/30/16 12:54 Glucometer 125mg/dL (65-110) 164mg/dL (65-110) 125mg/dL (65-110) White Blood Count 6.5T/MM3 (4.5-11.0) Red Blood Count 3.73M/MM3 (4.00-5.20) Hemoglobin 11.7GM/DL (12-16) Hematocrit 36.4% (36-46) Mean Corpuscular Volume 97.6UM3 (80-100) Mean Corpuscular Hemoglobin 31.4UUG (26-34) Mean Corpuscular Hemoglobin Concent 32.1GM/DL (31-37) RDW Standard Deviation 47.8FL (36.9-50.2) Platelet Count 191T/MM3 (130-400) Mean Platelet Volume 8.9UM3 (9.4-12.4) Immature Granulocyte % (Auto) 0.2% (0.0-0.5) Neutrophils (%) (Auto) 61.0% (33-66) Lymphocytes (%) (Auto) 26.6% (23-45) Monocytes (%) (Auto) 7.9% (0-9.0) Eosinophils (%) (Auto) 3.7% (0-4) Basophils (%) (Auto) 0.6% (0-2) Absolute Immature Granulocyte (auto 0.01T/MM3 (0.00-0.03) Absolute Neutrophils (auto) 3.9T/MM3 (1.8-7.7) Absolute Lymphocytes (auto) 1.7T/MM3 (1-4.8) Absolute Monocytes (auto) 0.5T/MM3 (0-0.8) Absolute Eosinophils (auto) 0.2T/MM3 (0-0.5) Absolute Basophils (auto) 0.0T/MM3 (0-0.2) Turbidity < 20 (0-20) Sodium Level 142MEQ/L (134-144) Potassium Level 4.1MEQ/L (3.6-5) Chloride Level 109MEQ/L (98-107) Carbon Dioxide Level 25MEQ/L (22-30) Anion Gap 8MEQ/L (5-15) Blood Urea Nitrogen 23.0MG/DL (7-17) Creatinine 0.9MG/DL (0.7-1.2) Glomerular Filtration Rate Calc 59 BUN/Creatinine Ratio 26RATIO (6-26) Glucose Level 112MG/DL (65-110) Calculated Osmolality 278MOSM/KG (261-280) Calcium Level 8.8MG/DL (8.4-10.2) Phosphorus Level 4.5MG/DL (2.5-4.5) Magnesium Level 2.2MG/DL (1.6-2.3) Icterus Index < 2 (0-7) Albumin 3.1G/DL (3.5-5.0) Chemistry Specimen Hemolysis < 15 (0-25) Test 06/30/16 19:47 07/01/16 05:10 07/01/16 05:51 07/01/16 10:26 Glucometer 95mg/dL (65-110) 90mg/dL (65-110) 105mg/dL (65-110) White Blood Count 5.7T/MM3 (4.5-11.0) Red Blood Count 3.78M/MM3 (4.00-5.20) Hemoglobin 12.0GM/DL (12-16) Hematocrit 36.7% (36-46) Mean Corpuscular Volume 97.1UM3 (80-100) Mean Corpuscular Hemoglobin 31.7UUG (26-34) Mean Corpuscular Hemoglobin Concent 32.7GM/DL (31-37) RDW Standard Deviation 47.4FL (36.9-50.2) Platelet Count 195T/MM3 (130-400) Mean Platelet Volume 8.9UM3 (9.4-12.4) Immature Granulocyte % (Auto) 0.2% (0.0-0.5) Neutrophils (%) (Auto) 56.8% (33-66) Lymphocytes (%) (Auto) 31.2% (23-45) Monocytes (%) (Auto) 7.4% (0-9.0) Eosinophils (%) (Auto) 3.7% (0-4) Basophils (%) (Auto) 0.7% (0-2) Absolute Immature Granulocyte (auto 0.01T/MM3 (0.00-0.03) Absolute Neutrophils (auto) 3.2T/MM3 (1.8-7.7) Absolute Lymphocytes (auto) 1.8T/MM3 (1-4.8) Absolute Monocytes (auto) 0.4T/MM3 (0-0.8) Absolute Eosinophils (auto) 0.2T/MM3 (0-0.5) Absolute Basophils (auto) 0.0T/MM3 (0-0.2) Turbidity < 20 (0-20) Sodium Level 141MEQ/L (134-144) Potassium Level 4.0MEQ/L (3.6-5) Chloride Level 108MEQ/L (98-107) Carbon Dioxide Level 25MEQ/L (22-30) Anion Gap 8MEQ/L (5-15) Blood Urea Nitrogen 16.0MG/DL (7-17) Creatinine 0.7MG/DL (0.7-1.2) Glomerular Filtration Rate Calc 79 BUN/Creatinine Ratio 23RATIO (6-26) Glucose Level 90MG/DL (65-110) Calculated Osmolality 272MOSM/KG (261-280) Calcium Level 8.9MG/DL (8.4-10.2) Phosphorus Level 3.6MG/DL (2.5-4.5) Magnesium Level 1.9MG/DL (1.6-2.3) Icterus Index < 2 (0-7) Albumin 3.1G/DL (3.5-5.0) Chemistry Specimen Hemolysis < 15 (0-25) Test 07/01/16 14:23 Glucometer 117mg/dL (65-110) On admission BUN was 19, creatinine 0.8, and sodium 145. Liver enzymes were unremarkable as were troponins. White count on admission 7.0, hemoglobin 12.8. Urinalysis on admission was unremarkable with negative nitrites and leukocyte esterase. Radiology CT of the head and cervical spine on admission revealed no evidence of acute intracranial pathology or spinal fracture. 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 Scattered white matter changes consistent with ischemia reported. Multilevel degenerative changes reported in the cervical spine. Portable chest x-ray admission was unremarkable. History of Present Illness Mrs. La is an 86-year-old female with severe aortic stenosis managed by Dr. Garcia. Her daughter provides history indicating that the valve is not thought to be surgically manageable. She has had abrupt syncopal episodes twice previously in August and March 2016 and was found to have urinary tract infections on both occasions. She is currently being treated for UTI with Macrobid after failing Bactrim and Cipro. She has been less conversant and more confused than normal recently per history of her home caregivers but oral intake has been good and there is been no nausea or diarrhea. This morning after having usual breakfast and bathing the patient lost consciousness while seated. Her daughter reports that she was combing her mother's hair at which time her mother's eyes rolled back in her head slumped backwards and to the right striking a wall. EMS was summoned and the patient was hypotensive when they arrived and remained minimally responsive on arrival in the ER. With prior syncopal episodes the patient has regained consciousness and returned to usual level mental status quickly. Her evaluation was unremarkable including noncontrast CT head without acute pathology. Cervical spine CT without acute pathology, and unremarkable labs including urinalysis. The patient received some IV fluids which seemed to help but because she remained dull and less interactive than normal she is being hospitalized on an observation basis for further monitoring. The patient's daughter supplementally reports that the patient's blood pressure was low when EMS arrived although value is uncertain. Initial blood pressure in the emergency room was 115/97 and has remained stable since arrival. Patient provides virtually no history and responds no the few questioned she does answer including whether she had chest pain, lightheadedness, nausea, or remembers feeling poorly earlier today. Hospital Course 06/29 Mrs. La is admitted after syncopal episode with prolonged decreased level of consciousness. Of note the patient has been less interactive and more confused prior to hospitalization after treatment was initiated as an outpatient more than a week ago for UTI with subsequent change in antibiotics from Bactrim to Cipro to Macrobid several days ago. Urine is currently unremarkable-Macrobid will be continued. Blood pressure has been stable since arrival, orthostatic vital signs will be obtained and patient will be monitored on telemetry. Initial troponin was unremarkable and EKG was without acute change. Patient denies chest pain however her history is unreliable. Troponin will be repeated this evening and if it is unchanged no further ischemic workup will be pursued. Additional fluids will be given overnight. Possibility of drop attacks was discussed with the patient's daughter in conjunction with generalized hypoperfusion due to aortic stenosis. Neuro checks will be monitored overnight and if stable discharge is anticipated tomorrow. Low-volume IV fluids will be continued although laboratory data is unchanged from recent hospitalization for RSV. 06/30/16 Patient remains hypotensive. Unsure of baseline. She does have known severe , nonoperative. Continue gentle IVF as she still looks a little dry on her labs. Possible dehydration vs. drop attack from . (Dr. Garcia). (recent RSV) Continue Amiodarone. She is not on diuretics or BP meds. Continue Macrobid for UTI. (recently on Cipro and Bactrim) Continue metformin, januvia for BG control- BG appears fairly stable. Plan is to return home with her caregiver when she is stable for discharge. Recheck labs in AM for stability and monitor orthostatic changes. Confusion exceeds baseline per caregiver, likely due to urinary tract infection for which treatment is ongoing. 07/01/16-discharge Daughter at bedside today, patient is alert and has been ambulating with assistance. Currently reading. No recurrent hypotension last night and orthostatic vital signs unremarkable. Blood pressure this morning 118/63 supine and 123/68 standing. Patient denies dyspnea or lightheadedness. Oral intake good. Breath sounds are clear although diminished on examination and cardiac murmur unchanged from prior days. There is no peripheral edema abdomen is benign. Laboratory data unremarkable, blood sugars stable. Stable for discharge at this time. Will complete Macrobid as previously prescribed. Continue all home medications without modification. Have recommended follow-up with Dr. Caballero in approximately one week and follow -up with Dr. Garcia to determine if echocardiogram needs to be updated within the next 1-2 months. Prior home health services to be resumed. >30 minutes spent on patient care and discharge care coordination today on the date of discharge. -- Problems: (1) Dehydration Status: Acute (2) Altered mental status Status: Acute (3) Syncope Status: Acute (4) Aortic stenosis, severe Status: Chronic (5) NIDDM Status: Chronic (6) Dementia Status: Chronic (7) Recurrent UTI Status: Chronic Code Status Limited Code Home Meds Active Scripts Acetaminophen (Tylenol) 325 Mg Tablet, 650 MG PO Q4HR Y for PAIN for 30 Days, # 360 TAB Prov:JOLENE BOX MD 07/01/16 Reported Medications Sitagliptin Phos/Metformin HCl (Janumet 50-500 mg Tablet) 1 Tab Tablet, 1 TAB PO BID 06/29/16 Levothyroxine Sodium (Levothyroxine Sodium) 50 Mcg Tablet, 50 MCG PO ACB 06/29/16 Nitrofurantoin Monohyd/M-Cryst (Macrobid 100 mg Capsule) 100 Mg Capsule, 100 MG PO BID 05/22/16 Cyanocobalamin (Vitamin B-12) (Vitamin B12) 2,500 Mcg Tablet, 2500 MCG PO DAILY 03/31/16 Multivits-Min/FA/Lycopene/Lut (Centrum Silver Tablet) 1 Each Tablet, 1 TAB PO DAILY 03/31/16 Amiodarone HCl (Amiodarone HCl) 200 Mg Tablet, 100 MG PO DAILY 03/31/16 Docusate Sodium (Colace) 100 Mg Capsule, 100 MG PO DAILY, CAP 09/05/15 Memantine HCl (Namenda Xr) 28 Mg Cap.spr.24, 28 MG PO DAILY, CAP 09/05/15 Aspirin (Aspirin) 81 Mg Tablet, 81 MG PO DAILY 09/04/12 Face to Face Encounter I met with patient on the day of dismissal and discussed follow up appointments , medications, and safety plan. Discharge Disposition Home with home health Copies To 1: NINA CABALLERO MD; ESCOBAR GARCIA MD Documentation Requirements Chronic Kidney Disease Stage of CKD: Stage 2 GFR 60-89 Alt. Mental Status/Confusion Check if condition above is: Acute (acute encephalopathy on underlying dementia ) Diabetes Diabetes Type: Type 2 Diabetes Is Diabetes Contolled?: Contolled Related to Diabetes: Not related to JOLENE BOX MD Jul 01, 2016 14:45
--- NOTE | 2016-07-01 15:43 | NUR ---
DISCHARGE DISCHARGE INSTRUCTIONS EXPLAINED TO PATIENT AND HER DAUGHTER. PACKET SENT WITH PATIENT. PT HAS BEEN PLEASANTLY CONFUSED THROUGHOUT THE SHIFT. PT IS ON RA. DENIES SOA. UP WITH 1 ASSIST, WALKER AND GAIT BELT. WAS MOSTLY INCONTINENT TODAY, DID USE THE BATHROOM ONCE TODAY. BELONGINGS PACKED AND SENT WITH PATIENT. MEDS SENT. IVL D'CD. TELE DC'D. PT DISCHARGED WITH HER DAUGHTER.
== END 2016-07-01 15:48 | disposition home health service (06) | DRG 312 ==
LOC: ED 14:26 → EDHOLD 16:44 → MED 17:30 → OBSVTOIN 06-30 16:56
PROVIDERS: ADMIT Internal Medicine; ATTEND Internal Medicine
DX: R55 Syncope and collapse (principal); N39.0 Urinary tract infection, site not specified; R41.82 Altered mental status, unspecified; E86.0 Dehydration; I95.9 Hypotension, unspecified; I35.0 Nonrheumatic aortic (valve) stenosis; E11.9 Type 2 diabetes mellitus without complications; F03.90 Unspecified dementia, unspecified severity, without behavioral disturbance, psychotic disturbance, mood disturbance, and anxiety; Z66 Do not resuscitate
CPT/HCPCS: 36415; 51701; 80053; 80069; 81003; 82948; 83735; 84484; 85025; 93005; 96360; 96361; 99218

== ENCOUNTER 2016-11-14 17:06 | Inpatient (IN) ==
[2016-11-14] MEDS ORDERED: NS 1,000 ML IV ONE (17:27)
--- NOTE | 2016-11-14 17:32 | Emergency Department Report ---
Altered Mental Status HPI - General Chief Complaint: Altered Mental Status Stated Complaint: Lethargic Time Seen by Provider: 11/14/16 17:10 Source: patient, family Mode of arrival: wheelchair Limitations: altered mental status - History of Present Illness HPI narrative: Patient's daughter brings her in today with complaints of generalized lethargy, sweats, and decreased mentation/increased confusion for at least 2 days. Patient has a long history of frequent and recurrent urinary tract infections, usually sensitive to IV Rocephin or Ceftin ear. Patient has been on 3 courses of Ceftin ear over the past 3 months, just finished her last course of 3 days ago, and as his typical she started having symptoms again within 2-3 days of stopping the antibiotic. Patient has a urologist in [place], Dr. Mendoza, and her primary care physician is Dr. Caballero here in [place]. 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 Patient's family also notes that she has had significant bruising over the past 2 days, although no known falls. Patient's family is quite concerned that this may be recurrence or worsening of UTI versus possible intra-cerebral hemorrhage. - Related Data Home Medications Medication Instructions Recorded Confirmed Docusate Sodium [Colace] 100 mg PO NOON #0 cap 09/05/15 11/14/16 Memantine HCl [Namenda Xr] 28 mg PO NOON #0 cap 09/05/15 11/14/16 Amiodarone HCl 100 mg PO NOON #0 03/31/16 11/14/16 Multivit-Min/FA/Lycopen/Lutein 1 tab PO NOON #0 03/31/16 11/14/16 [Centrum Silver Tablet] Levothyroxine Sodium 50 mcg PO ACB #0 06/29/16 11/14/16 Sitagliptin Phos/Metformin HCl 1 tab PO NOON #0 06/29/16 11/14/16 [Janumet 50-500 mg Tablet] Cranberry Fruit Extract [Cranberry] 500 mg PO BID #0 08/13/16 11/14/16 Cyanocobalamin (Vitamin B-12) 1 tab PO NOON #30 tab 08/13/16 11/14/16 [Vitamin B-12] Aspirin 81 mg PO NOON 10/14/16 11/14/16 Clopidogrel [Plavix] 75 mg PO NOON 11/14/16 11/14/16 Allergies Allergy/AdvReac Type Severity Reaction Status Date / Time lisinopril Allergy Severe Airway Verified 11/14/16 17:29 Obstruction Review of Systems All systems: reviewed and negative except as stated PFSH Patient Stated Medical History Dementia Yes Other GI Yes: occasional constipation Hx Urinary Tract Infection Yes: frequent Severe Aortic Stenosis. Dr. Garcia Hypothyroid Hemorrhagic stroke in 2011 History atrial fibrillation Hypotension Recurrent urinary tract infections Dementia Diabetes mellitus RSV bronchitis-May 2016 Surgical History: Patient's Surgical History: Lap briseyda. KEVIN. Right TKA Physical Exam - Limitations Limitations: no limitations - General General appearance: alert - Normal Exams: Head:: Normocephalic without trauma Eyes:: Pupils are PERRLA w/ EOMI, No scleral icterus, irritation, or foreign bodies noted ENMT:: No facial trauma, nasal exudates, pharyngeal erythema, or exudates are noted Neck:: Full range of motion, without adenopathy, JVD, bruits or thyromegaly Chest/Respirations:: Clear all gaines, with good airflow, and symmetry bilaterally Cardiovascular:: Regular rate and rhythm, without murmur or gallop, Pulses 2+ all extremities, capillary refill, <2 seconds all extremities Abdomen:: Bowel sounds positive, soft, non-tender, non-distended, no hepatosplenomegaly, masses or bruits noted Lymphatic:: No lymphadenopathy, or lymphedema noted Musculoskeletal:: No tenderness, or deformity noted, good range of motion, all extremities Integumentary:: No rashes, hives, or bruising noted, hair and nails, without abnormality Neurological:: Patient is alert, and oriented, cranial nerves, motor/sensory/ cerebellar, exams w/o gross deficits, to observation - Psychiatric Psychiatric exam: Absent: normal affect (flat affect, alert, but not oriented) Course Vital Signs Temperature 98.4 F 11/14/16 17:10 Pulse Rate 74 11/14/16 17:10 Respiratory Rate 16 11/14/16 17:10 Blood Pressure 142/68 H 11/14/16 17:10 Pulse Oximetry 94 11/14/16 17:10 Temperature 98.4 F 11/14/16 17:10 Pulse Rate 74 11/14/16 17:10 Respiratory Rate 16 11/14/16 17:10 Blood Pressure 142/68 H 11/14/16 17:10 Pulse Oximetry 94 11/14/16 17:10 Altered Mental Status - MDM Narrative Medical decision making narrative: After several courses of Ceftin ear, patient was, prescription for Monurol, but due to the cost she was unable to obtain yesterday. Patient given 1 L normal saline IV fluid bolus CBC - n CMP - n CT head -n UA - significant number of white blood cells and bacteria present Patient appears to have metabolic encephalopathy with recurrent urinary tract infection. Dr. Marco Antonio Godfrey will admit the patient, with plans for IV Rocephin and fluids, continued observation until the patient is improved back to her baseline - Lab Data Result diagrams: 11/14/16 17:34 11/14/16 17:34 Disposition Clinical Impression: Metabolic encephalopathy, Recurrent UTI Disposition: 02 To [facility] Acute Care Condition: Stable Prescriptions: No Action Docusate Sodium [Colace] 100 mg PO NOON #0 cap Amiodarone HCl 100 mg PO NOON #0 Multivit-Min/FA/Lycopen/Lutein [Centrum Silver Tablet] 1 tab PO NOON #0 Levothyroxine Sodium 50 mcg PO ACB #0 Sitagliptin Phos/Metformin HCl [Janumet 50-500 mg Tablet] 1 tab PO NOON #0 Memantine HCl [Namenda Xr] 28 mg PO NOON #0 cap Cyanocobalamin (Vitamin B-12) [Vitamin B-12] 1 tab PO NOON #30 tab Cranberry Fruit Extract [Cranberry] 500 mg PO BID #0 Aspirin 81 mg PO NOON Clopidogrel [Plavix] 75 mg PO NOON Referrals: Colleen Caballero MD [Family Provider] - - Seen By: physician
[2016-11-14] MEDS ORDERED: CEFTRIAXONE (ER USE ONLY) 1 GM in NS 100 ML IV ONE (18:39)
[2016-11-14] MEDS ORDERED: ONDANSETRON 4 MG/2 ML INJECTION IVP PRN (19:30)
[2016-11-14] MEDS ORDERED: Oxycodone/Acetaminophen 5/325 1 TAB PO PRN (19:59)
[2016-11-14] MEDS: NS 1,000 ML IV SCH (20:23)
--- NOTE | 2016-11-14 20:29 | History & Physical Report ---
<Marco Antonio Ray P - Last Filed: 11/14/16 20:26> History of Present Illness Date: 11/14/16 Chief complaint: none by patient, confusion per daughter HPI: Please note that the patient was seen via telemedicine with nursing assistance on 11/14/2016. Ms. La is an 86yo woman who is DNR and from home with h/o CAD s/p 09/2016 RCA stent, DM2 on oral agent, HTN, DJD s/p TKA, aortic stenosis, hypothyroidism, and dementia after CVA 5years ago now with recurrent UTIs having completed ceftinir a few days ago but in the last day confused with UTI by UA. Patient has been lethargic the last day with nausea last night without emesis, no sob or cough, and note flank pain. No fever or ENT symptoms, and has an appetite. No other recent medication changes. Daughter at the bedside provides history as the patient has inconsistent answers. Review of Systems ROS unobtainable: due to mental status - Constitutional Constitutional: Present: as per HPI PFSH Patient Stated Medical History Cerebrovascular Accident Yes: 5 YEARS AGO Dementia Yes Other Cardiology Yes: SEVERE AORTIC STENOSIS, LEFT ARM BLOOD CLOT Diabetes Mellitus Type 2 Yes Other GI Yes: occasional constipation Hx Incontinence Yes Hx Urinary Tract Infection Yes: frequent Sepsis Yes ID eval ongoing after urology recc with 09/25/2016 US with PVR of 150ml and no other abnormality with this or cystoscopy either Surgical History: Patient's Surgical History: Lap briseyda. KEVIN. Right TKA Family History: no early CAD - Social History Smoking status: Never smoker Substance use type: does not use Alcohol intake frequency: does not drink Housing: house (daughter lives with her, and works as an research associate molecular biology. Has other caretakers assist.) Medications Home Medications Medication Instructions Recorded Confirmed Type Docusate Sodium [Colace] 100 mg PO NOON #0 cap 09/05/15 11/14/16 History Memantine HCl [Namenda Xr] 28 mg PO NOON #0 cap 09/05/15 11/14/16 History Amiodarone HCl 100 mg PO NOON #0 03/31/16 11/14/16 History Multivit-Min/FA/Lycopen/Lutein 1 tab PO NOON #0 03/31/16 11/14/16 History [Centrum Silver Tablet] Levothyroxine Sodium 50 mcg PO ACB #0 06/29/16 11/14/16 History Sitagliptin Phos/Metformin HCl 1 tab PO NOON #0 06/29/16 11/14/16 History [Janumet 50-500 mg Tablet] Cranberry Fruit Extract [Cranberry] 500 mg PO BID #0 08/13/16 11/14/16 History Cyanocobalamin (Vitamin B-12) 1 tab PO NOON #30 tab 08/13/16 11/14/16 History [Vitamin B-12] Aspirin 81 mg PO NOON 10/14/16 11/14/16 History Clopidogrel [Plavix] 75 mg PO NOON 11/14/16 11/14/16 History Allergies Allergy/AdvReac Type Severity Reaction Status Date / Time lisinopril Allergy Severe Airway Verified 11/14/16 19:37 Obstruction Exam Vital Signs: Temperature 98.4 F 11/14/16 17:10 Pulse Rate 79 11/14/16 19:05 Respiratory Rate 16 11/14/16 18:16 Blood Pressure 136/65 11/14/16 19:05 Pulse Oximetry 96 11/14/16 19:05 Oxygen Delivery Method Room Air Telemetry Rhythm: Sinus Rhythm Height: 1.65 m Weight: 63.701 kg - Constitutional Present: no acute distress - Routine HEENT Exam Head: Present: normocephalic Eye: Present: EOMI - Routine Respiratory Exam Present: CTA bilaterally. Absent: accessory muscle use, respiratory distress, wheezes - Routine Cardiovascular Exam Present: RRR, murmur - Routine Abdominal Exam Present: soft, normoactive bowel sounds, non tender - Routine Extremities Exam Absent: cyanosis - Routine Skin Exam Present: intact - Routine Neurological Exam Present: alert, altered mental status. Absent: oriented X3 Results - Labs CBC & Chem 7: 11/14/16 17:34 11/14/16 17:34 Assessment and Plan (1) Acute cystitis without hematuria Current visit: Yes Status: Acute 11/14/16 20:33 Rocephin, cxs, IVF. 09/2016 Morganella sensitivites noted 11/14/16 20:34 No sepsis (2) Hypothyroid Current visit: Yes Status: Acute 11/14/16 20:33 check TSH with such a low dose (3) Metabolic encephalopathy Current visit: Yes Status: Acute 11/14/16 20:35 due to acute infection and prerenal by labs. supportive care and PT eval as from home. (4) Atherosclerotic heart disease of [place] coronary artery without angina pectoris Current visit: No Status: Chronic 11/14/16 20:34 same asa, plavix. Note on amio with h/o paroxysmal afib (5) Type 2 diabetes mellitus without complications Current visit: No Status: Chronic 11/14/16 20:34 diet, CBGs, SSI, hold oral agent with good control previously (6) HTN (hypertension) Current visit: Yes Status: Acute DVT Prophylaxis: SCD's Resuscitation Status: Do Not Resuscitate Sepsis Assessment - Evaluation Sepsis screening result: No Definite Risk Hospital Course Summary Disclaimer: The visit summary below is not to be considered part of the above Progress Note. <Jolene Box - Last Filed: 11/15/16 12:41> History of Present Illness Date: 11/15/16 [facility] Patient Stated Medical History Cerebrovascular Accident Yes: 5 YEARS AGO Dementia Yes Other Cardiology Yes: SEVERE AORTIC STENOSIS, LEFT ARM BLOOD CLOT Diabetes Mellitus Type 2 Yes Other GI Yes: occasional constipation Hx Incontinence Yes Hx Urinary Tract Infection Yes: frequent Sepsis Yes Exam Vital Signs: Temperature 97 F 11/15/16 07:22 Pulse Rate 72 11/15/16 07:33 Respiratory Rate 16 11/15/16 07:33 Blood Pressure 106/58 11/15/16 07:22 Pulse Oximetry 96 11/15/16 07:33 Oxygen Delivery Method Room Air Height: 1.65 m Weight: 65.8 kg Results - Labs CBC & Chem 7: 11/15/16 04:25 11/15/16 04:25 Assessment and Plan (1) Metabolic encephalopathy Current visit: Yes Status: Acute (2) Acute cystitis without hematuria Current visit: Yes Status: Acute (3) Atherosclerotic heart disease of [place] coronary artery without angina pectoris Current visit: No Status: Chronic (4) Type 2 diabetes mellitus without complications Current visit: No Status: Chronic (5) Hypothyroid Current visit: Yes Status: Acute (6) HTN (hypertension) Current visit: Yes Status: Acute Assessment and Plan: Dr. Ray's note reviewed. Mrs. La interviewed and examined. The patient's daughter is at the bedside and provides the bulk of the history. CC: Confusion HPI: Mrs. La is an 86-year-old female with multiple chronic medical conditions and history of recurrent urinary tract infections. She's been treated with Cefdinir for 3 courses recently after urine culture in September was positive for Morganella sensitive only to cefepime/ceftriaxone and a variety of IV antibiotics. The patient completed a course of antibiotics several days ago but in the past 1-2 days developed increasing confusion prompting ER evaluation were pyuria was again detected. The patient was reported to be lethargic yesterday with nausea. Her daughter reports that she's had some chilling and has been cold but no fever has been identified. The patient is complained of increased back pain from baseline. There's been no emesis or dyspnea. Patient is unable to provide any history. Daughter also notes that the patient has been more tearful which is atypical. The patient has undergone recent urologic evaluation by Dr. Mendoza including sonogram, post void residual, and cystoscopy. Incomplete bladder emptying was reported. ID follow-up is scheduled in the near future. PH/SH/FH: agree with that recorded above with additional medical history of coronary artery disease by catheterization in July with recent stent in the RCA and stent planned in the LAD soon (Dr. Vanessa). Non-rheumatic with valve area 0.64-0.7 cm, paroxysmal atrial fibrillation, Alzheimer's disease, hypertension, degenerative joint disease, history of left upper extremity DVT, history hemorrhagic stroke in 2011. One sister had colon cancer. The patient has a limited code with daughter requesting that no CPR be performed but other interventions are acceptable at present. Daughter, Mariajose La, is the patient's DPOA. The patient's primary care physician is Dr. Colleen Caballero and her web marketing strategist is Dr. Vanessa. ROS: 10 point review cannot be obtained beyond history provided by the patient' s daughter as noted above. EXAM: General-NAD, occasionally tearful, pleasantly confused. HEENT-PERRL, EOMI without nystagmus, conjunctiva clear, sclera anicteric, conjugate gaze, facial structures symmetric, oropharynx clear, neck supple and without adenopathy Lungs-respirations nonlabored, crackles at the left base, good airflow Cardiac-regular rhythm, S1-S2, harsh 2-3/6 systolic murmur most notable at the right upper sternal border Abd-soft, mild tenderness lateral right mid abdomen without guarding, bowel sounds present, no mass palpable Ext-trace edema dorsal feet bilaterally Skin-minor bruising forearms Musculoskeletal-mild discomfort on palpation across the back bilaterally-does not correspond to flank pain in my estimation Neuro-cranial nerves 3-12 grossly intact,, normal motor tone, generalized weakness but moves all extremities symmetrically, sensation intact to light touch/temperature 4 extremities Psych-intermittently tearful, cooperative DATA: CT scan reviewed by myself demonstrating old right frontal, parietal, occipital stroke and generalized atrophy, no acute pathology. White count 7.1, hemoglobin 12.7, differential unremarkable. Electrolytes within normal limits, creatinine 0.8, liver enzymes within normal limits. Lactic acid 1.8, procalcitonin undetectable. TSH 2.93 UA with 50-20 WBC and WBC clumps, 3+ bacteria, negative nitrate. Urine culture pending A/P: Altered mental status with emotional lability Pyuria, probable UTI Recurrent UTI Alzheimer's disease CAD Aortic stenosis, severe, non-nonrheumatic Diabetes mellitus, type II, [id number], with diabetic neuropathy CKD, stage II Mrs. La is readmitted with presumed recurrent UTI and altered mental status. She remains altered with emotional lability. Her daughter advises me that infectious disease recommended use of fosfomycin with next event. Patient is capable of oral intake. I'm clarifying which ID physician patient is scheduled for follow-up with and will discuss further with ID. She has recently been on methenamine 1 g daily (although urine pH on admission was 6) without impact on frequency of infections. Presumably nephrolithiasis has been excluded by urology evaluation. Urine culture pending. Home medications continued for chronic medical conditions. Limited DO NOT RESUSCITATE-no CPR, other interventions appropriate per daughter. Continue IV fluids, poor oral intake. Old records reviewed, CT head reviewed by myself, laboratory data reviewed, supplemental history provided by patient's daughter/DPOA. Hospital Course Summary Disclaimer: The visit summary below is not to be considered part of the above Progress Note.
[2016-11-14 20:58] VITALS: BMI 24.3
[2016-11-15] MEDS: LEVOTHYROXINE 50 MCG TABLET PO SCH (05:55)
[2016-11-15] MEDS: NS 1,000 ML IV SCH ×2 (06:59→18:26)
--- NOTE | 2016-11-15 08:07 | CT Scan Report ---
Indication: acute mental status decrease with hx of brain bleed. PROCEDURE: CT head/brain wo con: Encounter: Initial Comparison: None Technique: Axial CT images through the head were performed without contrast. Iterative Reconstruction dose reducing technique was utilized. FINDINGS: Large old areas of infarct involving the right frontal, parietal and occipital lobes. Moderate to severe generalized atrophy. Old left parietal lobe infarct as well. The ventricles are of normal size, shape, and contour for the patient's age. There are scattered areas of low attenuation in the white matter which most likely represent changes from chronic microvascular ischemia. The brainstem, cerebellum, and cerebral hemispheres otherwise have a normal morphology and CT attenuation. There is no evidence of midline displacement. No hemorrhage, signs of acute territorial stroke, mass effect, mass lesions, or edema is evident. The visualized portions of the skull base, midface, and calvarium demonstrate no abnormality. The paranasal sinuses are well aerated and free of significant disease. The tympanic and mastoid cavities appear normal. IMPRESSION: No acute intracranial abnormality or hemorrhage. Multiple old infarcts. There is a preliminary report by [facility]. .
[2016-11-15] MEDS ORDERED: CEFTRIAXONE 1 G in NS 100 ML IV SCH (09:00)
[2016-11-15] MEDS ORDERED: FOSFOMYCIN 3 GRAM PACKET PO ONE (12:13)
[2016-11-15] MEDS: ASPIRIN 81 MG CHEWABLE TABLET PO SCH (12:34)
[2016-11-15] MEDS: MEMANTINE 10 MG TABLET PO SCH ×2 (12:34→21:32)
[2016-11-15] MEDS: CLOPIDOGREL 75 MG TABLET PO SCH (12:35)
[2016-11-15] MEDS: AMIODARONE 200 MG TABLET PO SCH (12:35)
[2016-11-15] MEDS: ACETAMINOPHEN 325 MG TABLET PO PRN (14:18)
[2016-11-15] MEDS: INSULIN ASPART 100unit/ml INJECTION SQ PRN (18:26)
[2016-11-16] MEDS: NS 1,000 ML IV SCH ×2 (04:41→15:43)
[2016-11-16] MEDS: LEVOTHYROXINE 50 MCG TABLET PO SCH (06:40)
--- NOTE | 2016-11-16 10:05 | Progress Note ---
<AartiRenee D - Last Filed: 11/16/16 10:02> Subjective: Edel was eating breakfast. She introduced herself appropriately, then asked if we knew her father. She states that she often cries - related to not being able to use the bathroom. She was in no acute distress. No burning on urination. Objective Vital signs: Temperature 97.0 F 11/16/16 09:10 Pulse Rate 77 11/16/16 09:10 Respiratory Rate 16 11/16/16 09:10 Blood Pressure 145/75 H 11/16/16 09:10 Pulse Oximetry 98 11/16/16 09:10 Oxygen Delivery Method Room Air Weight: 65.8 kg - Constitutional Present: no acute distress, well nourished, well developed, thin - Routine HEENT Exam Head: Present: normocephalic Eye: Absent: conjunctival icterus, scleral injection ENT: Present: mucous membranes moist, oropharynx clear - Routine Respiratory Exam Present: CTA bilaterally - Routine Cardiovascular Exam Present: S1, S2, murmur (loud systolic murmur) - Routine Abdominal Exam Present: soft, normoactive bowel sounds - Routine Extremities Exam Present: no edema - Routine Musculoskeletal Exam Musculoskeletal: Present: no tenderness - Routine Skin Exam Present: intact, dry, warm - Routine Neurological Exam Present: alert confused - Routine Psychiatric Exam Present: normal affect. Absent: normal thought process Results - Labs CBC & Chem 7: 11/15/16 04:25 11/15/16 04:25 Assessment and Plan (1) Atherosclerotic heart disease of [place] coronary artery without angina pectoris Current visit: No Status: Chronic 11/14/16 20:34 same asa, plavix. Note on amio with h/o paroxysmal afib (2) Type 2 diabetes mellitus without complications Current visit: No Status: Chronic 11/14/16 20:34 diet, CBGs, SSI, hold oral agent with good control previously (3) Metabolic encephalopathy Current visit: Yes Status: Acute 11/14/16 20:35 due to acute infection and prerenal by labs. supportive care and PT eval as from home. (4) Acute cystitis without hematuria Current visit: Yes Status: Acute 11/14/16 20:33 Rocephin, cxs, IVF. 09/2016 Morganella sensitivites noted 11/14/16 20:34 No sepsis (5) Hypothyroid Current visit: Yes Status: Acute 11/14/16 20:33 check TSH with such a low dose (6) HTN (hypertension) Current visit: Yes Status: Acute DVT Prophylaxis: SCD's Resuscitation Status: Do Not Resuscitate Assessment and Plan: Assessment Altered mental status with emotional lability Pyuria, probable UTI Recurrent UTI Alzheimer's disease CAD Aortic stenosis, severe, non-nonrheumatic Diabetes mellitus, type II, [id number], with diabetic neuropathy CKD, stage II Normocytic anemia Plan fosfomycin x1 UC gram pos cocci and gram neg staci continue IVF until PO intake improves BGM under reasonable control may need to discuss alternate dc options with family complete w/u for dementia (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) <Abhishek Arredondo - Last Filed: 11/16/16 17:48> Objective Vital signs: Temperature 97.8 F 11/16/16 15:45 Pulse Rate 80 11/16/16 15:45 Respiratory Rate 18 11/16/16 15:45 Blood Pressure 125/86 11/16/16 15:45 Pulse Oximetry 94 11/16/16 15:45 Oxygen Delivery Method Room Air Results - Labs CBC & Chem 7: 11/16/16 11:45 11/16/16 11:45 Assessment and Plan (1) Atherosclerotic heart disease of [place] coronary artery without angina pectoris Current visit: No Status: Chronic (2) Type 2 diabetes mellitus without complications Current visit: No Status: Chronic (3) Metabolic encephalopathy Current visit: Yes Status: Acute (4) Acute cystitis without hematuria Current visit: Yes Status: Acute (5) Hypothyroid Current visit: Yes Status: Acute (6) HTN (hypertension) Current visit: Yes Status: Acute Assessment and Plan: Above pt was seen and examined with Renee earlier today. Agree with current plan of care and physical findings. Pt is very confused her daughter and director critical care state she has not been this confused before. Pt has H.O several CVA's and could have delirium superimposed on multi-infarct state. However per description of daughter pt is pretty much "with it" at home. PE Pt has logorrhea and is incoherent. tries to follow commands Well hydrated NC/AT Chest - fair air entry Loud murmur in the aortic area. Abd - soft NT/ND Ext - no edema. Pt UA shows gram + and gram negative organisms. Pt received Fosfomycin x 1 Pt was given Rocephin and this has been continued. Workup for reversible causes of AMS was ordered including RPR. Ammonia is less than 9 (NORMAL) Pt is being evaluated for correction of - however this can not be done until pt recurrent UTI goes away. Hospital Course Summary Disclaimer: The visit summary below is not to be considered part of the above Progress Note.
[2016-11-16] MEDS: CYANOCOBALAMIN (B-12) 500mcg TABLET PO SCH (11:21)
[2016-11-16] MEDS: AMIODARONE 200 MG TABLET PO SCH (11:21)
[2016-11-16] MEDS: CLOPIDOGREL 75 MG TABLET PO SCH (11:21)
[2016-11-16] MEDS: MEMANTINE 10 MG TABLET PO SCH ×2 (11:22→20:33)
[2016-11-16] MEDS: ASPIRIN 81 MG CHEWABLE TABLET PO SCH (11:22)
[2016-11-16] MEDS ORDERED: CEFTRIAXONE 1 G in NS 100 ML IV SCH (12:30)
[2016-11-16] MEDS: INSULIN ASPART 100unit/ml INJECTION SQ PRN (20:40)
[2016-11-17] MEDS: NS 1,000 ML IV SCH ×2 (01:47→11:20)
[2016-11-17] MEDS: LEVOTHYROXINE 50 MCG TABLET PO SCH (06:06)
[2016-11-17] MEDS: MEMANTINE 10 MG TABLET PO SCH (09:18)
--- NOTE | 2016-11-17 11:12 | Progress Note ---
Subjective: Pt appears to be more confused or at least the same as yesterday. She has not had any fever or low BP. No tachycardia. Objective Vital signs: Temperature 97.6 F 11/17/16 09:29 Pulse Rate 76 11/17/16 09:29 Respiratory Rate 16 11/17/16 09:29 Blood Pressure 157/91 H 11/17/16 09:29 Pulse Oximetry 97 11/17/16 09:29 Oxygen Delivery Method Room Air Rhythm: Normal Sinus Rhythm Weight: 65.7 kg - Constitutional Present: mild distress Comments: Pt is agitated. - Routine HEENT Exam Head: Present: normocephalic, atraumatic Eye: Present: EOMI, PERRL Comments: S/P Bilateral IOLI - Routine Respiratory Exam Present: CTA bilaterally - Routine Cardiovascular Exam Present: RRR, S1, S2 - Routine Abdominal Exam Present: soft, non distended, non tender - Routine Extremities Exam Absent: cyanosis, clubbing, edema - Routine Skin Exam Present: intact - Routine Neurological Exam Present: alert very confused, logorrheic. - Routine Psychiatric Exam Present: agitated Results - Labs CBC & Chem 7: 11/17/16 04:19 11/17/16 04:19 Assessment and Plan (1) Atherosclerotic heart disease of [place] coronary artery without angina pectoris Current visit: No Status: Chronic 11/14/16 20:34 same asa, plavix. Note on amio with h/o paroxysmal afib (2) Type 2 diabetes mellitus without complications Current visit: No Status: Chronic 11/14/16 20:34 diet, CBGs, SSI, hold oral agent with good control previously (3) Metabolic encephalopathy Current visit: Yes Status: Acute 11/14/16 20:35 due to acute infection and prerenal by labs. supportive care and PT eval as from home. (4) Acute cystitis without hematuria Current visit: Yes Status: Acute 11/14/16 20:33 Rocephin, cxs, IVF. 09/2016 Morganella sensitivites noted 11/14/16 20:34 No sepsis (5) Hypothyroid Current visit: Yes Status: Acute 11/14/16 20:33 check TSH with such a low dose (6) HTN (hypertension) Current visit: Yes Status: Acute (7) UTI (urinary tract infection) due to Enterococcus Current visit: Yes Status: Acute 11/17/16 11:08 Enteroccocus sensitive to Vancomicyn Assessment and Plan: Summary This is a 86 YO female with H.O recurrent UTI that came for recurrence. She has been additionally very confused to a point her daughter and care takers state she has never been like this before. She remains logorrheic and is a bit paranoid today. This is most likely TME due to infection. WBC remains normal today. BP is not low, she is not tachycardic. DIAGNOSIS 1) UTI - RECURRENT Urine culture - Final today P Aeruginosa - Sensitive to Cipro and Cefepime Enterococcus - Sensitive to Vancomicyn (this is a MDRO) Plan - Stop Rocephin - Change to Vancomicyn and Cefepime. Consult pharmacy for kinetics. - Blood cultures x 2 prior to initiation of treatment. - Hydrate gently (Na is a bit up) - telemetry 2) Hyperactive delirium - May need low dose Haldol PRN. 3) Aortic stenosis - pt needs to be cleared of her MDRO prior to any further intervention. 4) Hypernatremia, mild. - Hydrate with 1/2 NS 5) DM with increasing BS probably related to infection. - Continue sliding scale. - No Metformin 6) CAD S/P Stent - on Plavix * NO CP * Will place on telemetry - Pt is DNR per admission note. Prevention 1) Ranitidine 2) SCD's Sepsis Assessment - Evaluation Sepsis screening result: No Definite Risk Hospital Course Summary Disclaimer: The visit summary below is not to be considered part of the above Progress Note. 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
[2016-11-17] MEDS ORDERED: PANTOPRAZOLE 40 MG INJECTION IVP SCH (11:15)
[2016-11-17] MEDS: CEFEPIME 1 GM in NS 100 ML IV SCH ×3 (11:19→22:26)
[2016-11-17] MEDS: 1/2 NS 1,000 ML IV SCH (11:54)
[2016-11-17] MEDS: DOCUSATE SODIUM 100 MG CAPSULE PO SCH (11:55)
[2016-11-17] MEDS: AMIODARONE 200 MG TABLET PO SCH (11:55)
[2016-11-17] MEDS: ASPIRIN 81 MG CHEWABLE TABLET PO SCH (11:55)
[2016-11-17] MEDS: ENOXAPARIN 40 MG/0.4 ML INJECTION SQ SCH (11:55)
[2016-11-17] MEDS: CYANOCOBALAMIN (B-12) 500mcg TABLET PO SCH (11:56)
[2016-11-17] MEDS: CLOPIDOGREL 75 MG TABLET PO SCH (11:56)
[2016-11-17] MEDS: MULTI-VIT + MINERAL (Opti-gen) TABLET PO SCH (11:56)
[2016-11-17] MEDS: INSULIN ASPART 100unit/ml INJECTION SQ PRN (20:11)
[2016-11-17] MEDS: RANITIDINE 150 MG TABLET PO SCH (20:11)
[2016-11-18] MEDS: CEFEPIME 1 GM in NS 100 ML IV SCH ×3 (05:07→19:03)
[2016-11-18] MEDS: 1/2 NS 1,000 ML IV SCH (05:37)
[2016-11-18] MEDS: LEVOTHYROXINE 50 MCG TABLET PO SCH (06:04)
[2016-11-18] MEDS: INSULIN ASPART 100unit/ml INJECTION SQ PRN ×2 (06:13→21:50)
[2016-11-18] MEDS ORDERED: METHENAMINE HIPPURATE 1 GM TABLET PO SCH (09:00)
[2016-11-18] MEDS: RANITIDINE 150 MG TABLET PO SCH ×2 (09:46→21:50)
[2016-11-18] MEDS: CYANOCOBALAMIN (B-12) 100mcg TABLET PO SCH (09:47)
[2016-11-18] MEDS: ENOXAPARIN 40 MG/0.4 ML INJECTION SQ SCH (09:47)
--- NOTE | 2016-11-18 10:18 | Infectious Disease Consult ---
Infectious Disease Consult Date of Consultation: 11/18/16 Requesting Physician: Abhishek Arredondo Reason for Consultation: antibiotic recs History of Present Illness: Ms. La is an 86 y/o woman who is unable to provide any history. I discussed her case last Friday with Dr. Box, and I was told that Dr. Mendoza was referring her to see me as an outpatient. She has a h/o urinary retention, and recurrent UTIs. She had a urine culture 10/09/16 with >100K col. of Morganella. She has been evaluated by Dr. Mendoza, and by report there were no stones or major problems identified. Her daughter brought her here on 11/04 with concerns of decreased mental status x 2 days and some sweats. She was concerned about recurrent UTIs. On admission, the patient did not complain of any urinary symptoms, and did not have flank pain on exam. Her UA on admission had 50-200 WBC, 3+ bacteria. WBC, lactate, creatinine and procalcitonin were all normal. She has not had documented fever. She was given a dose of fosfomycin. Urine culture grew >100K E. faecium that is sensitive only to Vancomycin, linezolid and doxycycline. It also grew 50-100K colonies of P. aeruginosa that was hayden- sensitive. She was started on Vancomycin and cefepime yesterday, and blood cultures were obtained yesterday before starting those. She received some ceftriaxone prior to the Vanc/cefepime. CT of the brain shows old, multiple infarcts. She has remained confused, and per nursing staff, she didn't sleep much all night last night. Medications Home Medications Medication Instructions Recorded Confirmed Type Docusate Sodium [Colace] 100 mg PO NOON #0 cap 09/05/15 11/14/16 History Memantine HCl [Namenda Xr] 28 mg PO NOON #0 cap 09/05/15 11/14/16 History Amiodarone HCl 100 mg PO NOON #0 03/31/16 11/14/16 History Multivit-Min/FA/Lycopen/Lutein 1 tab PO NOON #0 03/31/16 11/14/16 History [Centrum Silver Tablet] Levothyroxine Sodium 50 mcg PO ACB #0 06/29/16 11/14/16 History Sitagliptin Phos/Metformin HCl 1 tab PO NOON #0 03/11/17 07/27/17 History [Janumet 50-500 mg Tablet] Cranberry Fruit Extract [Cranberry] 500 mg PO BID #0 08/13/16 11/14/16 History Cyanocobalamin (Vitamin B-12) 1 tab PO NOON #30 tab 08/13/16 11/14/16 History [Vitamin B-12] Aspirin 81 mg PO NOON 10/14/16 11/14/16 History Clopidogrel [Plavix] 75 mg PO NOON 11/14/16 11/14/16 History Methenamine Hippurate [Hiprex] 1 gm PO DAILY 11/17/16 11/17/16 History Allergies Allergy/AdvReac Type Severity Reaction Status Date / Time lisinopril Allergy Severe Airway Verified 11/14/16 19:37 Obstruction PFSH Patient Stated Medical History Cerebrovascular Accident Yes: 5 YEARS AGO Dementia Yes Other Cardiology Yes: SEVERE AORTIC STENOSIS, LEFT ARM BLOOD CLOT Diabetes Mellitus Type 2 Yes Other GI Yes: occasional constipation Hx Incontinence Yes Hx Urinary Tract Infection Yes: frequent Sepsis Yes Surgical History: Patient's Surgical History: Lap briseyda. KEVIN. Right TKA Family History: reviewed and non-contributory - Social History Smoking status: Never smoker Substance use type: does not use Alcohol intake: never Current residence: Apartment/Private Home Review of Systems ROS unobtainable: due to mental status Exam Vital Signs: Temperature 96.4 F L 11/18/16 07:00 Pulse Rate 85 11/18/16 08:00 Respiratory Rate 16 11/18/16 07:00 Blood Pressure 132/67 11/18/16 07:00 Pulse Oximetry 96 11/18/16 07:00 Oxygen Delivery Method Room Air Height: 1.65 m Weight: 64.4 kg Body Mass Index: 24.3 - Constitutional Present: no acute distress - Routine HEENT Exam Head: Present: normocephalic Eye: Present: EOMI, PERRL ENT: Present: mucous membranes moist Comments: poor dentition - Routine Neck Exam Present: supple - Routine Respiratory Exam Present: CTA bilaterally. Absent: accessory muscle use - Routine Cardiovascular Exam Present: RRR. Absent: murmur - Routine Abdominal Exam Present: soft, normoactive bowel sounds, non distended. Absent: tenderness - Routine Exam Comments: No ortiz, no CVA tenderness - Routine Extremities Exam Absent: edema - Routine Skin Exam Present: dry, warm. Absent: rash - Routine Neurological Exam Present: altered mental status (she thinks she's at home). Absent: motor deficit - Routine Psychiatric Exam Present: unable to assess Results - Labs CBC & Chem 7: 11/18/16 09:36 11/18/16 09:36 Microbiology Results: Microbiology 11/17/16 10:58 Peripheral/Iv Start Blood Culture - Preliminary Culture Initiated - Results Pending 11/17/16 11:02 Peripheral/Iv Start Blood Culture - Preliminary Culture Initiated - Results Pending Impression: Urine culture with >100K E. faecium and 50-100K Pseudomonas, with some pyuria. Not clear if truly symptomatic. AMS, clinically doubt this is due to UTI. Dementia and delirium Urinary retention. DM II, not IR CAD Aortic stenosis A fib on amiodarone Recommendation: I think it's very difficult to say that her mental status changes are related to a UTI. She was treated with fosfomycin x 1, and now is on Vancomycin and cefepime. She continues to exhibit signs of delirium and poor sleep per nursing. I would continue these antibiotics for just a few days and then stop. Her UA can be repeated to see if the WBCs have decreased. I would continue the hiprex that she's been on as an outpatient to try to decrease recurrent UTIs , and I would also consider using vaginal estrogen cream. Given the fact that her WBC is normal, lactate and procalcitonin are normal, I suspect this is mostly asymptomatic bacteriuria. Sepsis Assessment - Evaluation Sepsis screening result: No Definite Risk
--- NOTE | 2016-11-18 10:20 | Progress Note ---
<AartiRenee Taylor - Last Filed: 11/18/16 10:16> Subjective: Edel was resting comfortably in bed. She was in no acute distress. Earlier this morning she was quite confused. She was too focused on her baby to participate in bathing and morning cares. She was weak but was able to transfer into the chair with 1 assist. She ate all of her breakfast. She is incontinent of urine. Objective Vital signs: Temperature 96.4 F L 11/18/16 07:00 Pulse Rate 85 11/18/16 08:00 Respiratory Rate 16 11/18/16 07:00 Blood Pressure 132/67 11/18/16 07:00 Pulse Oximetry 96 11/18/16 07:00 Oxygen Delivery Method Room Air Weight: 64.4 kg - Constitutional Present: no acute distress, thin - Routine HEENT Exam Head: Present: normocephalic ENT: Present: mucous membranes dry - Routine Respiratory Exam Present: CTA bilaterally (listened anteriorly) - Routine Cardiovascular Exam Present: RRR, S1, S2, murmur (3-4/6 systolic murmur) - Routine Abdominal Exam Present: soft, normoactive bowel sounds - Routine Extremities Exam Present: no edema, pulses intact, normal capillary refill - Routine Musculoskeletal Exam Musculoskeletal: Present: no clubbing or cyanosis - Routine Skin Exam Present: intact, dry, warm - Routine Neurological Exam resting with eyes closed. When awake, she is markedly confused and oriented only to self. - Routine Psychiatric Exam Absent: normal thought process Results - Labs CBC & Chem 7: 11/18/16 09:36 11/18/16 09:36 Microbiology Results: Microbiology 11/17/16 10:58 Peripheral/Iv Start Blood Culture - Preliminary Culture Initiated - Results Pending 11/17/16 11:02 Peripheral/Iv Start Blood Culture - Preliminary Culture Initiated - Results Pending Assessment and Plan (1) Metabolic encephalopathy Current visit: Yes Status: Acute 11/14/16 20:35 due to acute infection and prerenal by labs. supportive care and PT eval as from home. (2) UTI (urinary tract infection) due to Enterococcus Current visit: Yes Status: Acute 11/17/16 11:08 Enteroccocus sensitive to Vancomicyn DVT Prophylaxis: SCD's GI Prophylaxis: Rantidine Resuscitation Status: Do Not Resuscitate Assessment and Plan: Summary This is a 86 YO female with H.O recurrent UTI that came for recurrence. She has been additionally very confused to a point her daughter and care takers state she has never been like this before. She remains logorrheic and delirious. This is most likely TME due to infection. WBC remains normal today. VSS; occasional mild tachycardia. No fever, hypotension. DIAGNOSES 1) UTI - RECURRENT Urine culture: P Aeruginosa - Sensitive to Cipro and Cefepime Enterococcus - Sensitive to Vancomicyn (this is a MDRO) Plan - consult ID Dr. Garcia - Stop Rocephin - Change to Vancomicyn and Cefepime. Consult pharmacy for kinetics. - Blood cultures x 2 prior to initiation of treatment. - Hydrate gently (Na is a bit up) - telemetry 2) Hyperactive delirium - May need low dose Haldol PRN - will need to monitor on telemetry d/t risk of QT prolongation while on Amiodarone. - Dementia workup - No Vitamin B12 or Folate deficiencies; THS normal; RPR pending; head CT + for atrophy & multi-infarct dementia. 3) Aortic stenosis - pt needs to be cleared of her MDRO UTI prior to any further intervention. 4) Hypernatremia, mild. - Continue to hydrate with 1/2 NS @ 75 ml/hr - Remains slightly high at 146 but osmolality has declined. 5) DM with increasing BS, probably related to infection. - Continue sliding scale. - No Metformin 6) CAD S/P Stent - on Plavix * NO CP * Will place on telemetry PPX 1) Ranitidine 2) SCD's Sepsis Assessment - Evaluation Sepsis screening result: No Definite Risk Hospital Course Summary Disclaimer: The visit summary below is not to be considered part of the above Progress Note. 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 Garcia consulted for MDRO Urine culture: P Aeruginosa - Sensitive to Cipro and Cefepime Enterococcus - Sensitive to Vancomicyn Mild hypernatremia - 1/2 NS started <ArnulfoAbhishek - Last Filed: 11/18/16 11:10> Objective Vital signs: Temperature 96.4 F L 11/18/16 07:00 Pulse Rate 85 11/18/16 08:00 Respiratory Rate 16 11/18/16 07:00 Blood Pressure 132/67 11/18/16 07:00 Pulse Oximetry 96 11/18/16 07:00 Oxygen Delivery Method Room Air Results - Labs CBC & Chem 7: 11/18/16 09:36 11/18/16 09:36 Microbiology Results: Microbiology 11/17/16 10:58 Peripheral/Iv Start Blood Culture - Preliminary Culture Initiated - Results Pending 11/17/16 11:02 Peripheral/Iv Start Blood Culture - Preliminary Culture Initiated - Results Pending Assessment and Plan (1) Metabolic encephalopathy Current visit: Yes Status: Acute (2) UTI (urinary tract infection) due to Enterococcus Current visit: Yes Status: Acute Assessment and Plan: I have independently seen and examined this patient and agree with the above physical exam and plan of care. Summary: This is a 86 YO female with H.O recurrent UTI that came for recurrence. She has been additionally very confused to a point her daughter and care takers state she has never been like this before. She was very logorrheic and had delirium with visual hallucination on 11/17; this was thougth to be due to TME due to infection. UA showed Enteroccocus and pseudomona sp and she was placed on Vanco + Cefepime on 11/17. She is sleepy today but her confussion is much improved. DIAGNOSES 1) UTI - RECURRENT Urine culture: P Aeruginosa - Sensitive to Cipro and Cefepime Enterococcus - Sensitive to Vancomicyn, with resistance to most of the other antibiotics tested. - Vancomicyn and Cefepime day # 2 2) TME - delirium - much improved. She is now resting apparenlty was awake last night till 4am. Spoke briefly with her, and her mentation - Dementia workup - No Vitamin B12 or Folate deficiencies; THS normal; RPR pending - CT brain + for atrophy & multi-infarct state, pt probably has mild dementia per my conversations with her daughter. 3) Aortic stenosis - pt needs to be cleared of her MDRO UTI prior to any further intervention. 4) Hypernatremia, mild, Na still at 146. - Remains slightly high at 146 but osmolality has declined. - Since mentation has improved I expect oral input to improve and Na should come down. 5) DM with increasing BS, probably related to infection. - Continue sliding scale. - No Metformin 6) CAD S/P Stent - on Plavix * NO CP * Will place on telemetry 7) Polipharmacy - Pt on high dose oral B12 - B12 level high - changed to 100mcg PO daily (from 1000mcg daily) - Namenda on hold. - Stop Methenamine - Stop Zofran - Stop Oral pain narcotic. PPX 1) Ranitidine 2) Lovenox SCD's were D/C to help her sleep better and hopefully reduce delirium. Hospital Course Summary Disclaimer: The visit summary below is not to be considered part of the above Progress Note.
[2016-11-18] MEDS: ASPIRIN 81 MG CHEWABLE TABLET PO SCH (11:49)
[2016-11-18] MEDS: CLOPIDOGREL 75 MG TABLET PO SCH (11:49)
[2016-11-18] MEDS: AMIODARONE 200 MG TABLET PO SCH (11:49)
[2016-11-18] MEDS: MULTI-VIT + MINERAL (Opti-gen) TABLET PO SCH (11:49)
[2016-11-18] MEDS: DOCUSATE SODIUM 100 MG CAPSULE PO SCH (11:49)
--- NOTE | 2016-11-18 14:14 | Pharmacy Consult- Renal Dosing ---
Pharamcy Consul-Renal Dosing - Laboratory Information 11/15/16 11/16/16 11/17/16 04:25 11:45 04:19 BUN 17.0 13.0 15.0 Creatinine 0.8 0.7 0.8 11/18/16 09:36 BUN 13.0 Creatinine 0.8 RENAL DOSING: Today's SCr = 0.8 mg/dl. Calculated CrCl = 36.8 ml/min. It is recommend to reduce Cefepime 1 mg iv to q8h when the creatinine clearanced is between 30-50 mL/hr. Per Pharmacy Renal Monitoring and Adjustment Program. The pharmacy will continue monitoring of cefepime and notify of changes in therapy. Thanks Amish Thorne RPh.
[2016-11-18] MEDS ORDERED: NS FLUSH BAG 500ml IV ONE (17:00)
[2016-11-19] MEDS ORDERED: NS FLUSH BAG 500ml IV PRN (01:14)
[2016-11-19] MEDS: CEFEPIME 1 GM in NS 100 ML IV SCH ×3 (02:44→18:56)
[2016-11-19] MEDS: LEVOTHYROXINE 50 MCG TABLET PO SCH (06:31)
--- NOTE | 2016-11-19 08:27 | Progress Note ---
<AartiRenee Taylor - Last Filed: 11/19/16 08:24> Subjective: Edel was comfortably resting. The night order selector was overall unremarkable. She's alert to self only, but has been pleasant and cooperative. Incontinent of large amounts of urine. Hypotensive since yesterday afternoon, slowly improving. Objective Vital signs: Temperature 96.4 F L 11/19/16 07:34 Pulse Rate 70 11/19/16 07:34 Respiratory Rate 14 11/19/16 07:34 Blood Pressure 111/65 11/19/16 07:34 Pulse Oximetry 98 11/19/16 07:34 Oxygen Delivery Method Room Air Weight: 65.9 kg - Constitutional Present: no acute distress, well nourished, well developed, thin - Routine HEENT Exam ENT: Present: mucous membranes dry - Routine Respiratory Exam Present: CTA bilaterally - Routine Cardiovascular Exam Present: RRR, S1, S2, murmur - Routine Abdominal Exam Present: soft, normoactive bowel sounds, non distended - Routine Extremities Exam Present: no edema, pulses intact, normal capillary refill - Routine Musculoskeletal Exam Musculoskeletal: Present: no clubbing or cyanosis, no erythema, other (B/L SCDs) - Routine Skin Exam Present: intact, dry, warm - Routine Neurological Exam Absent: oriented X3 (when awake, oriented to self only) - Routine Psychiatric Exam Present: cooperative (when awake), agitated (at times) Results - Labs CBC & Chem 7: 11/19/16 04:53 11/19/16 04:53 Microbiology Results: Microbiology 11/17/16 10:58 Peripheral/Iv Start Blood Culture - Preliminary No Growth After 1 Day 11/17/16 11:02 Peripheral/Iv Start Blood Culture - Preliminary No Growth After 1 Day Assessment and Plan (1) UTI (urinary tract infection) due to Enterococcus Current visit: Yes Status: Acute 11/17/16 11:08 Enteroccocus sensitive to Vancomicyn (2) Metabolic encephalopathy Current visit: Yes Status: Acute 11/14/16 20:35 due to acute infection and prerenal by labs. supportive care and PT eval as from home. DVT Prophylaxis: Lovenox GI Prophylaxis: Rantidine Resuscitation Status: Limited Code Assessment and Plan: I have independently seen and examined this patient and agree with the above physical exam and plan of care. Summary: This is a 86 YO female with H.O recurrent UTI that came for recurrence. She has been additionally very confused to a point her daughter and care takers state she has never been like this before. She was very logorrheic and had delirium with visual hallucination on 11/17; this was thought to be due to TME due to infection. UA showed Enteroccocus and pseudomona sp and she was placed on Vanco + Cefepime on 11/17. DIAGNOSES 1) UTI - RECURRENT Urine culture: P Aeruginosa - Sensitive to Cipro and Cefepime Enterococcus - Sensitive to Vancomycin, with resistance to most of the other antibiotics tested. - Vancomicyn and Cefepime day # 3 - Evaluated by Dr. Garcia - she recommends to treat with above abx for a few days then DC; continue hiprex (outpatient med) to try to decrease recurrent UTIs , consider vaginal estrogen cream. 2) TME - delirium - improved. She is now resting apparenlty was awake last night till 4am. Spoke briefly with her, and her mentation - Dementia workup - No Vitamin B12 or Folate deficiencies; prealbumin normal; TSH normal; RPR pending - CT brain + for atrophy & multi-infarct state, pt probably has mild dementia per conversations with her daughter. - Since mentation has improved, hope to see oral intake increase. 3) Hypotension - Improved this am - continue IVF 4) Anemia - Mild, suspect hemodilutional with recent IVF 5) Aortic stenosis - pt needs to be cleared of her MDRO UTI prior to any further intervention. 6) Hypernatremia, resolved. 7) DM with intermittent hyperglycemia, probably related to infection. - Continue sliding scale. - No Metformin 8) CAD S/P Stent - on Plavix; stable, continue telemetry 9) Polypharmacy - Pt on high dose oral B12 - B12 level high - changed to 100mcg PO daily (from 1000mcg daily) - Namenda on hold. - Stop Methenamine - Stop Zofran - Stop Oral pain narcotic. PPX 1) Ranitidine 2) Lovenox (DC SCD's to help her sleep better and hopefully reduce delirium) Sepsis Assessment - Evaluation Sepsis screening result: No Definite Risk Hospital Course Summary Disclaimer: The visit summary below is not to be considered part of the above Progress Note. Hospital Course: 11/16/16 10:12 Assessment Altered mental status with emotional lability Pyuria, probable UTI Recurrent UTI Alzheimer's disease CAD Aortic stenosis, severe, non-nonrheumatic Diabetes mellitus, type II, [id number], with diabetic neuropathy CKD, stage II Normocytic anemia Plan fosfomycin x1 UC gram pos cocci and gram neg staci continue IVF until PO intake improves BGM under reasonable control may need to discuss alternate dc options with family w/u for dementia 11/18/16-11/17/16 Dr. Garcia consulted for MDRO Urine culture: recommends few days of abx then DC; continue Hiprex; consider vaginal estrogen cream P Aeruginosa - Sensitive to Cipro and Cefepime Enterococcus - Sensitive to Vancomicyn Mild hypernatremia - 1/2 NS started 11/19/16 Mild hypotension - continues on IVF <Abhishek Arredondo - Last Filed: 11/19/16 14:24> Objective Vital signs: Temperature 96.4 F L 11/19/16 07:34 Pulse Rate 69 11/19/16 08:01 Respiratory Rate 14 11/19/16 07:34 Blood Pressure 111/65 11/19/16 07:34 Pulse Oximetry 98 11/19/16 07:34 Oxygen Delivery Method Room Air Results - Labs CBC & Chem 7: 11/19/16 04:53 11/19/16 04:53 Microbiology Results: Microbiology 11/17/16 10:58 Peripheral/Iv Start Blood Culture - Preliminary No Growth After 2 Days 11/17/16 11:02 Peripheral/Iv Start Blood Culture - Preliminary No Growth After 2 Days Assessment and Plan (1) Metabolic encephalopathy Current visit: Yes Status: Acute (2) UTI (urinary tract infection) due to Enterococcus Current visit: Yes Status: Acute Assessment and Plan: I have independently examined this patient and spoke with her daughter at length. Her mentation is much improved, she is no longer hallucinating and is coherent. Still a bit forgetful. Summary: This is a 86 YO female with H.O recurrent UTI that came for recurrence. She has been additionally very confused to a point her daughter and care takers state she has never been like this before. She was very logorrheic and had delirium with visual hallucination on 11/17; this was thought to be due to TME due to infection. UA showed Enteroccocus and pseudomona sp and she was placed on Vanco + Cefepime on 7/30. Her mentation has improved as of today and she is trending back to her baseline. DIAGNOSES 1) UTI - RECURRENT Vanco + Cefepime day # 3 Urine culture: P Aeruginosa - Sensitive to Cipro and Cefepime Enterococcus - Sensitive to Vancomycin, with resistance to most of the other antibiotics tested. 2) TME - delirium - much improved today per my conversation with her daughter. - B12 or Folate normal; TSH normal; RPR pending - CT brain + for atrophy & multi-infarct state. 3) Hypotension - gave fluids and is better now. 4) Anemia - Mild, suspect hemodilutional with recent IVF 5) Aortic stenosis - As above - stable. 6) Hypernatremia, resolved. 7) DM with intermittent hyperglycemia, probably related to infection. - Continue sliding scale. - No Metformin 8) CAD S/P Stent - on Plavix; stable, continue telemetry 9) Polypharmacy - Pt on high dose oral B12 - B12 level high - changed to 100mcg PO daily (from 1000mcg daily) - Stop Methenamine - Stop Zofran - Stop Oral pain narcotic. PPX 1) Ranitidine 2) Lovenox (DC SCD's to help her sleep better and hopefully reduce delirium) Hospital Course Summary Disclaimer: The visit summary below is not to be considered part of the above Progress Note.
[2016-11-19] MEDS: ENOXAPARIN 40 MG/0.4 ML INJECTION SQ SCH (08:38)
[2016-11-19] MEDS: CYANOCOBALAMIN (B-12) 100mcg TABLET PO SCH (08:39)
[2016-11-19] MEDS: RANITIDINE 150 MG TABLET PO SCH ×2 (08:39→21:33)
[2016-11-19] MEDS: MEMANTINE 10 MG TABLET PO SCH ×2 (08:40→21:33)
[2016-11-19] MEDS: INSULIN ASPART 100unit/ml INJECTION SQ PRN ×2 (11:17→17:19)
[2016-11-19] MEDS: AMIODARONE 200 MG TABLET PO SCH (13:04)
[2016-11-19] MEDS: ASPIRIN 81 MG CHEWABLE TABLET PO SCH (13:05)
[2016-11-19] MEDS: DOCUSATE SODIUM 100 MG CAPSULE PO SCH (13:05)
[2016-11-19] MEDS: CLOPIDOGREL 75 MG TABLET PO SCH (13:05)
[2016-11-19] MEDS: MULTI-VIT + MINERAL (Opti-gen) TABLET PO SCH (13:05)
--- NOTE | 2016-11-19 17:06 | Pharmacy Consult-Antibiotics ---
Pharmacy Consult-Vancomycin - Laboratory Information WBC 5.7 T/MM3 (4.5-11.0) 11/19/16 04:53 BUN 17.0 MG/DL (7-17) 11/19/16 04:53 Creatinine 0.8 MG/DL (0.7-1.2) 11/19/16 04:53 Procalcitonin < 0.05 NG/ML 11/14/16 17:34 Vancomycin Trough 11.62 UG/ML (15-20) L 11/19/16 15:50 86yo F admitted with recurrent UTI. Urine Culture grew E. Faecium (grp D) > 100,000 cfu/ml sensitive to Vancomycin Pseudomonas A. 10,000 - 50,000 cfu/ml sensitive to Cefepime. Renal fx is compromised (secondary to age) but stable with today's SCr = 0.8mg/ dl. Calculated CrCl = 37ml/min. Vancomycin trough of 11.62 mcg/ml is within target range of 10-15mcg/ml for UTI treatment. Will continue present regimen of VANCOMYCIN 1 gm IV q 18 hours. thank you
[2016-11-20] MEDS: CEFEPIME 1 GM in NS 100 ML IV SCH (03:02)
[2016-11-20] MEDS: RANITIDINE 150 MG TABLET PO SCH ×2 (08:37→20:48)
[2016-11-20] MEDS: MEMANTINE 10 MG TABLET PO SCH (08:37)
[2016-11-20] MEDS: ENOXAPARIN 40 MG/0.4 ML INJECTION SQ SCH (08:37)
[2016-11-20] MEDS: LEVOTHYROXINE 50 MCG TABLET PO SCH (08:37)
[2016-11-20] MEDS: CYANOCOBALAMIN (B-12) 100mcg TABLET PO SCH (08:38)
--- NOTE | 2016-11-20 08:56 | Progress Note ---
Subjective Date: 11/20/16 Subjective: She is sitting up, ready to eat breakfast. She denies any nausea, diarrhea, or urinary symptoms. No fevers. Exam Vital Signs: Temperature 97.0 F 11/20/16 07:00 Pulse Rate 70 11/20/16 07:00 Respiratory Rate 16 11/20/16 07:00 Blood Pressure 114/65 11/20/16 07:00 Pulse Oximetry 98 11/20/16 07:00 Oxygen Delivery Method Room Air Height: 1.65 m Weight: 66.5 kg Body Mass Index: 24.3 - Constitutional Present: no acute distress, well nourished, well developed - Routine HEENT Exam Head: Present: normocephalic Eye: Present: EOMI ENT: Present: mucous membranes moist, dentition normal - Routine Neck Exam Present: supple - Routine Respiratory Exam Present: CTA bilaterally - Routine Cardiovascular Exam Present: RRR, murmur (II/ DARIN) - Routine Abdominal Exam Present: soft, normoactive bowel sounds, non distended. Absent: tenderness - Routine Extremities Exam Absent: edema - Routine Skin Exam Absent: rash - Routine Neurological Exam Present: alert, CN II-XII intact oriented to place, doesn't know what year it is - Routine Psychiatric Exam Present: normal affect Results - Labs CBC & Chem 7: 11/20/16 04:57 11/20/16 04:57 Microbiology Results: Microbiology 11/17/16 10:58 Peripheral/Iv Start Blood Culture - Preliminary No Growth After 2 Days 11/17/16 11:02 Peripheral/Iv Start Blood Culture - Preliminary No Growth After 2 Days Microbiology 11/17/16 10:58 Peripheral/Iv Start Blood Culture - Preliminary No Growth After 2 Days 11/17/16 11:02 Peripheral/Iv Start Blood Culture - Preliminary No Growth After 2 Days 11/14/16 18:09 Urine, Voided (Cc/notcc) Urine Culture - Final Enterococcus faecium (grp d) Pseudomonas aeruginosa Impression: Urine culture with >100K E. faecium and 50-100K Pseudomonas, with some pyuria. Not clear if truly symptomatic. AMS, clinically doubt this is due to UTI. Dementia and delirium Urinary retention. DM II, not IR CAD Aortic stenosis A fib on amiodarone Recommendation: I think it's very difficult to say that her mental status changes are related to a UTI. She was treated with fosfomycin x 1, and now has been on Vancomycin and cefepime for 4 days. I would continue the hiprex that she's been on as an outpatient to try to decrease recurrent UTIs, and I would also consider using vaginal estrogen cream. I will stop her antibiotics today. Recommend observing her for a short time, and then she could likely be discharged. Sepsis Assessment - Evaluation Sepsis screening result: No Definite Risk
[2016-11-20] MEDS: INSULIN ASPART 100unit/ml INJECTION SQ PRN (11:26)
--- NOTE | 2016-11-20 12:39 | XRay Report ---
Indication: Constipation - confusion PROCEDURE: XR KUB: Encounter: Initial Comparison: September 04, 2012 Findings: The lung bases are grossly clear. Cholecystectomy clips. Nonobstructive nonspecific bowel gas pattern. Moderate stool in the colon. Mild degenerative change in the spine. Impression: Nonobstructive nonspecific bowel gas pattern. .
[2016-11-20] MEDS: AMIODARONE 200 MG TABLET PO SCH (12:49)
[2016-11-20] MEDS: CLOPIDOGREL 75 MG TABLET PO SCH (12:49)
[2016-11-20] MEDS: ASCORBIC ACID 500 MG TABLET PO SCH (12:49)
[2016-11-20] MEDS: ASPIRIN 81 MG CHEWABLE TABLET PO SCH (12:49)
[2016-11-20] MEDS: MULTI-VIT + MINERAL (Opti-gen) TABLET PO SCH (12:49)
[2016-11-20] MEDS: DOCUSATE SODIUM 100 MG CAPSULE PO SCH (12:50)
[2016-11-20] MEDS ORDERED: FLEET PHOSPHO - SODA ENEMA 133ml PR ONE (15:00)
--- NOTE | 2016-11-20 17:34 | Progress Note ---
Subjective: Pt is again very confused. She was doing better 2 days ago, yesterday started getting confused and today is worse again. Memantine (Namenda) had been stopped on 11/14 and was resumed on 11/16 for unkonwn reasons by the night team. Objective Vital signs: Temperature 97.2 F 11/20/16 15:00 Pulse Rate 72 11/20/16 15:00 Respiratory Rate 16 11/20/16 15:00 Blood Pressure 107/59 11/20/16 15:00 Pulse Oximetry 97 11/20/16 15:00 Oxygen Delivery Method Room Air Rhythm: Normal Sinus Rhythm Body Mass Index: 24.3 - Constitutional Present: no acute distress - Routine HEENT Exam Head: Present: normocephalic, atraumatic Eye: Present: EOMI, PERRL - Routine Cardiovascular Exam Present: RRR, S1, S2 - Routine Abdominal Exam Present: soft, non distended, non tender - Routine Extremities Exam Absent: cyanosis, clubbing, edema - Routine Neurological Exam Present: alert Very disoriented - Routine Psychiatric Exam Absent: normal thought process Comments: disoriented. Results - Labs CBC & Chem 7: 11/20/16 04:57 11/20/16 04:57 Microbiology Results: Microbiology 11/17/16 10:58 Peripheral/Iv Start Blood Culture - Preliminary No Growth After 3 Days 11/17/16 11:02 Peripheral/Iv Start Blood Culture - Preliminary No Growth After 3 Days Assessment and Plan (1) Metabolic encephalopathy Current visit: Yes Status: Acute 11/14/16 20:35 due to acute infection and prerenal by labs. supportive care and PT eval as from home. (2) UTI (urinary tract infection) due to Enterococcus Current visit: Yes Status: Acute 11/17/16 11:08 Enteroccocus sensitive to Vancomicyn Assessment and Plan: Summary: This is a 86 YO female with H.O recurrent UTI that came for recurrence. She has been additionally very confused to a point her daughter and care takers state she has never been like this before. She was very logorrheic and had delirium with visual hallucination on 11/17; this was thought to be due to TME due to infection. UA showed Enteroccocus and pseudomona sp and she was placed on Vanco + Cefepime on 11/17. Her mentation has improved as of today and she is trending back to her baseline. DIAGNOSES 1) UTI - RECURRENT Antibiotics stopped. Urine culture: P Aeruginosa - Sensitive to Cipro and Cefepime Enterococcus - Sensitive to Vancomycin, with resistance to most of the other antibiotics tested. Daughter is requesting UA + Culture repeated but told her she was just taken off antibiotics ideally would wait at least several days to check a culture back. 2) TME - delirium - Improved on 11/18 - then progressively worsening again. - Suspect this may be due to NAMENDA - Stopped - can cause up to 6% confussion. - KUB - Impacted ? -> Gave enema - PVR - Retaning urine ? - B12 or Folate normal; TSH normal; RPR negative. 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 3) Hypotension - better. 4) Anemia - Mild, suspect hemodilutional with recent IVF 5) Aortic stenosis - As above - stable. 6) Hypernatremia, resolved. 7) DM with intermittent hyperglycemia, probably related to infection. - Continue sliding scale. - No Metformin 8) CAD S/P Stent - on Plavix; stable, continue telemetry 9) Polypharmacy - Pt on high dose oral B12 - B12 level high - changed to 100mcg PO daily (from 1000mcg daily) - Stop Methenamine - Stop Zofran - Stop Oral pain narcotic. PPX 1) Ranitidine 2) Lovenox (DC SCD's to help her sleep better and hopefully reduce delirium) Sepsis Assessment - Evaluation Sepsis screening result: No Definite Risk Hospital Course Summary Disclaimer: The visit summary below is not to be considered part of the above Progress Note. Hospital Course: 11/16/16 10:12 Assessment Altered mental status with emotional lability Pyuria, probable UTI Recurrent UTI Alzheimer's disease CAD Aortic stenosis, severe, non-nonrheumatic Diabetes mellitus, type II, [id number], with diabetic neuropathy CKD, stage II Normocytic anemia Plan fosfomycin x1 UC gram pos cocci and gram neg staci continue IVF until PO intake improves BGM under reasonable control may need to discuss alternate dc options with family w/u for dementia 11/18/16-11/17/16 Dr. Garcia consulted for MDRO Urine culture: recommends few days of abx then DC; continue Hiprex; consider vaginal estrogen cream P Aeruginosa - Sensitive to Cipro and Cefepime Enterococcus - Sensitive to Vancomicyn Mild hypernatremia - 1/2 NS started 11/19/16 Mild hypotension - continues on IVF
[2016-11-20] MEDS: METHENAMINE HIPPURATE 1 GM TABLET PO SCH (20:48)
[2016-11-21] MEDS: LEVOTHYROXINE 50 MCG TABLET PO SCH (06:50)
[2016-11-21] MEDS: RANITIDINE 150 MG TABLET PO SCH ×2 (09:26→20:15)
[2016-11-21] MEDS: CYANOCOBALAMIN (B-12) 100mcg TABLET PO SCH (09:26)
[2016-11-21] MEDS: ENOXAPARIN 40 MG/0.4 ML INJECTION SQ SCH (09:27)
[2016-11-21] MEDS: ASCORBIC ACID 500 MG TABLET PO SCH (09:27)
[2016-11-21] MEDS: METHENAMINE HIPPURATE 1 GM TABLET PO SCH ×3 (09:34→20:15)
[2016-11-21] MEDS: AMIODARONE 200 MG TABLET PO SCH (11:23)
[2016-11-21] MEDS: CLOPIDOGREL 75 MG TABLET PO SCH (11:23)
[2016-11-21] MEDS: MULTI-VIT + MINERAL (Opti-gen) TABLET PO SCH (11:23)
[2016-11-21] MEDS: DOCUSATE SODIUM 100 MG CAPSULE PO SCH (11:24)
[2016-11-21] MEDS: ASPIRIN 81 MG CHEWABLE TABLET PO SCH (11:24)
[2016-11-21] MEDS: INSULIN ASPART 100unit/ml INJECTION SQ PRN ×2 (11:25→21:52)
--- NOTE | 2016-11-21 14:03 | Consultation ---
DATE OF CONSULTATION 11/21/[address] Arredondo PATIENT'S CHIEF COMPLAINT Confusion. HISTORY OF PRESENT ILLNESS Patient is an 86-year-old female with history of stroke, intracranial hemorrhage , aortic stenosis and recurrent UTIs. The patient was brought to [facility] with increased confusion, fatigue and generalized weakness. She was found to have a UTI and was started on medication for UTI and possible sepsis. The patient did well initially and her medications were changed later. This has caused her to have some decline in her overall mental functioning. She has had no fever and no elevated white count. Her medication for dementia including memantine were put on hold to try to decrease risk of medication side effect and confusion. This may have helped initially and the patient's condition started to worsen again. The patient's lab has shown some mild dehydration. She had a CT scan of the head that showed no acute intracranial abnormalities. It showed the old stroke which has affected the right parietal and occipital head region with no signs of bleed. The patient had no new focal weakness or numbness. She continued to have problem with attention and confusion. On physical examination the patient was awake, alert, oriented to self only. She was having difficulty with people, time and place. Patient was able to recognize me but she was not able to tell my name. Patient was able to read the clock. She was able to follow two-step commands, she was able to name color. Her speech was slow and hesitant. Her pupils were round, reactive and equal. Extraocular muscles were intact. Visual field was difficult to assess. Motor examination on the right upper and lower extremities were in the range of 4+-5/5, on the left upper and lower extremity in the range of 4- to 4/5. Sensory examination was symmetrical to light touch and temperature sensation. Deep tendon reflexes were 2-/4. Plantar reflexes were downgoing on the right and equivocal on the left. ASSESSMENT 1. Metabolic encephalopathy associated with UTI, dehydration and abnormal cardiac functioning. There is no evidence of new stroke or bleed. There is no evidence of seizure activities on examination and in the history. PLAN 1. Optimize treatment for UTI. Consider reinitiating antibiotic treatment. 2. Improve fluid intake. 3. Avoid sedation. 4. Keep patient busy with activities, consider physical therapy for passive movement and to try to help the patient become more active in the bed and try to move the patient from a bed to a chair. 5. Consider transfer to rehab after medical conditions are stabilized. BERED
[2016-11-21] MEDS: SALINE FLUSH 10ml SYRINGE IV PRN (16:14)
--- NOTE | 2016-11-21 18:19 | Progress Note ---
Subjective: PT mentation is a bit better than yesterday, but is still waxing and waning. Spoke with Dr Power who thinks this is a combination of progression of her disease + TME could be due to infection, medications etc. Objective Vital signs: Temperature 97.4 F 11/21/16 15:00 Pulse Rate 66 11/21/16 15:00 Respiratory Rate 16 11/21/16 15:00 Blood Pressure 124/66 11/21/16 15:00 Pulse Oximetry 98 11/21/16 15:00 Oxygen Delivery Method Room Air Rhythm: Normal Sinus Rhythm Weight: 65.8 kg - Constitutional Present: no acute distress - Routine HEENT Exam Head: Present: normocephalic, atraumatic Eye: Present: EOMI, PERRL - Routine Respiratory Exam Present: CTA bilaterally - Routine Cardiovascular Exam Present: RRR, S1, S2 - Routine Abdominal Exam Present: soft, non distended, non tender - Routine Extremities Exam Absent: cyanosis, clubbing, edema - Routine Skin Exam Present: intact - Routine Neurological Exam Present: alert - Routine Psychiatric Exam Present: cooperative, good judgment Results - Labs CBC & Chem 7: 11/20/16 04:57 11/20/16 04:57 Microbiology Results: Microbiology 11/17/16 10:58 Peripheral/Iv Start Blood Culture - Preliminary No Growth After 4 Days 11/17/16 11:02 Peripheral/Iv Start Blood Culture - Preliminary No Growth After 4 Days Assessment and Plan (1) Metabolic encephalopathy Current visit: Yes Status: Acute 11/14/16 20:35 due to acute infection and prerenal by labs. supportive care and PT eval as from home. (2) UTI (urinary tract infection) due to Enterococcus Current visit: Yes Status: Resolved 11/17/16 11:08 Enteroccocus sensitive to Vancomicyn Assessment and Plan: Summary: This is a 86 YO female with H.O recurrent UTI that came for recurrence. She has been additionally very confused to a point her daughter and care takers state she has never been like this before. She was very logorrheic and had delirium with visual hallucination on 11/17; this was thought to be due to TME due to infection. UA showed Enteroccocus and pseudomona sp and she was placed on Vanco + Cefepime on 11/17. Her mentation improved on 11/18 - but on 11/19 started becoming confused again and on 11/20 was very confused. Her Namenda was held yesterday and she is a bit more oriented today. DIAGNOSES 1) UTI - RECURRENT Antibiotics stopped. Urine culture: P Aeruginosa - Sensitive to Cipro and Cefepime Enterococcus - Sensitive to Vancomycin, with resistance to most of the other antibiotics tested. 2) TME - delirium - Improved on 11/18 - then progressively worsening again - today a bit better. - Suspect this may be due to NAMENDA - Stopped - can cause up to 6% confussion. - B12 or Folate normal; TSH normal; RPR negative. 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 3) Hypotension - better. 4) Anemia - Mild, suspect hemodilutional with recent IVF 5) Aortic stenosis - As above - stable. 6) Hypernatremia, resolved. 7) DM with intermittent hyperglycemia, probably related to infection. - Continue sliding scale. - No Metformin 8) CAD S/P Stent - on Plavix; stable, continue telemetry 9) Polypharmacy - Pt on high dose oral B12 - B12 level high - changed to 100mcg PO daily (from 1000mcg daily) - Stop Zofran - Stop Oral pain narcotic. PPX 1) Ranitidine 2) Lovenox (DC SCD's to help her sleep better and hopefully reduce delirium) Sepsis Assessment - Evaluation Sepsis screening result: No Definite Risk Hospital Course Summary Disclaimer: The visit summary below is not to be considered part of the above Progress Note. Hospital Course: 11/16/16 10:12 Assessment Altered mental status with emotional lability Pyuria, probable UTI Recurrent UTI Alzheimer's disease CAD Aortic stenosis, severe, non-nonrheumatic Diabetes mellitus, type II, [id number], with diabetic neuropathy CKD, stage II Normocytic anemia Plan fosfomycin x1 UC gram pos cocci and gram neg staci continue IVF until PO intake improves BGM under reasonable control may need to discuss alternate dc options with family w/u for dementia 11/18/16-11/17/16 Dr. Garcia consulted for MDRO Urine culture: recommends few days of abx then DC; continue Hiprex; consider vaginal estrogen cream P Aeruginosa - Sensitive to Cipro and Cefepime Enterococcus - Sensitive to Vancomicyn Mild hypernatremia - 1/2 NS started 11/19/16 Mild hypotension - continues on IVF
[2016-11-22] MEDS: LEVOTHYROXINE 50 MCG TABLET PO SCH (05:49)
[2016-11-22] MEDS: METHENAMINE HIPPURATE 1 GM TABLET PO SCH ×2 (09:47→20:08)
[2016-11-22] MEDS: ENOXAPARIN 40 MG/0.4 ML INJECTION SQ SCH (09:47)
[2016-11-22] MEDS: CYANOCOBALAMIN (B-12) 100mcg TABLET PO SCH (09:47)
[2016-11-22] MEDS: ASCORBIC ACID 500 MG TABLET PO SCH (09:47)
[2016-11-22] MEDS: RANITIDINE 150 MG TABLET PO SCH (09:47)
--- NOTE | 2016-11-22 12:49 | Progress Note ---
DATE 11/22/[address] Arredondo PATIENT'S CHIEF COMPLAINT Confusion. HISTORY OF PRESENT ILLNESS Patient has been stable since yesterday. She has been gradually improving mentally and physically. Her repeat urine test was unremarkable. She has been slightly anemic. Her chemistry showed some mild increase in dehydration. The patient has been encouraged to drink more fluid and to be more active with physical therapy to improve her overall medical functioning. There was no significant change on examination. ASSESSMENT 1. metabolic encephalopathy associated with UTI and dehydration. This has been gradually improving. 2. Chronic dementia associated with cerebrovascular disease and possible Alzheimer's disease. There is no evidence of new stroke or seizure problem. PLAN 1. Continue good fluid intake. 2. Consider resuming medication for dementia including Namenda. 3. Continue physical and occupational therapy and consider rehabilitation before discharge home. BERED
[2016-11-22] MEDS: INSULIN ASPART 100unit/ml INJECTION SQ PRN ×2 (12:51→15:15)
[2016-11-22] MEDS: AMIODARONE 200 MG TABLET PO SCH (12:56)
[2016-11-22] MEDS: ASPIRIN 81 MG CHEWABLE TABLET PO SCH (12:56)
[2016-11-22] MEDS: CLOPIDOGREL 75 MG TABLET PO SCH (12:57)
[2016-11-22] MEDS: DOCUSATE SODIUM 100 MG CAPSULE PO SCH (12:57)
[2016-11-22] MEDS: MULTI-VIT + MINERAL (Opti-gen) TABLET PO SCH (12:57)
--- NOTE | 2016-11-22 16:48 | Ultrasound Report ---
Indication: Rule out obstruction, stones, hydronephrosis. PROCEDURE: US renal BI: Encounter: Initial Comparison: Renal ultrasound dated September 25, 2016 Technique: Grayscale and color Doppler sonographic imaging of both kidneys and bladder was performed. FINDINGS: Both kidneys are present with normal cortical thickness and echogenicity. No evidence for collecting system dilatation, contour deforming mass, nephrolithiasis, or abnormal perinephric fluid collection. The right kidney measures 10.5 cm in length, and the left kidney measures 9.9 cm in length. Bladder appears unremarkable. Bilateral ureteral jets were seen. IMPRESSION: No hydronephrosis. .
--- NOTE | 2016-11-22 17:36 | Progress Note ---
Subjective: Pt remains fairly confused with mentation that is waxing and waning. Early in the AM she was somehow oriented, then she became confused. No fever, blood pressure is stable. No focal neurologic findings. Objective Vital signs: Temperature 97.3 F 11/22/16 08:00 Pulse Rate 73 11/22/16 16:00 Respiratory Rate 14 11/22/16 08:00 Blood Pressure 97/58 11/22/16 16:00 Pulse Oximetry 95 11/22/16 16:00 Oxygen Delivery Method Room Air Weight: 63.8 kg - Constitutional Present: no acute distress - Routine HEENT Exam Head: Present: normocephalic, atraumatic Eye: Present: EOMI, PERRL - Routine Respiratory Exam Present: CTA bilaterally - Routine Cardiovascular Exam Present: RRR, murmur - Routine Abdominal Exam Present: soft, non distended, non tender - Routine Extremities Exam Absent: cyanosis, clubbing, edema - Routine Neurological Exam Present: alert, oriented X3, CN II-XII intact - Routine Lymphatic Exam Lymphatic: Absent: adenopathy - Routine Psychiatric Exam Comments: Disoriented somehow slurred speech. Results - Labs CBC & Chem 7: 11/23/16 08:02 11/23/16 08:02 Microbiology Results: Microbiology 11/17/16 10:58 Peripheral/Iv Start Blood Culture - Final No Growth After 5 Days 11/17/16 11:02 Peripheral/Iv Start Blood Culture - Final No Growth After 5 Days - ABG Interpretation ABG results: 11/22/16 11:50 ABG pH 7.420 ABG pCO2 41 ABG pO2 70 L ABG HCO3 27 H ABG Total CO2 27.9 H ABG O2 Saturation 94.0 L ABG Base Excess 1.9 Assessment and Plan (1) Metabolic encephalopathy Current visit: Yes Status: Acute 11/14/16 20:35 due to acute infection and prerenal by labs. supportive care and PT eval as from home. (2) UTI (urinary tract infection) due to Enterococcus Current visit: Yes Status: Resolved 11/17/16 11:08 Enteroccocus sensitive to Vancomicyn Assessment and Plan: Summary: This is a 86 YO female with H.O recurrent UTI that came for recurrence. She has been additionally very confused to a point her daughter and care takers state she has never been like this before. She was very logorrheic and had delirium with visual hallucination on 11/17; this was thought to be due to TME due to infection. UA showed Enteroccocus and pseudomona sp and she was placed on Vanco + Cefepime on 11/17. Her mentation improved on 11/18 - but on 11/19 started becoming confused again and on 11/20 was very confused. I had a long discussion with her daughter regarding the ? of UTI. She insists Mom was much improved with Vancomicyn. Explained that ID specialist recommended antibiotics stopped and 4 days could have eradicated Enterococcus if it was a true infection. Will do a trial with Doxy for now PO 100 mg PO BID. This would cover the Enterococcus not the Pseudomona. DIAGNOSES 1) UTI - RECURRENT Antibiotics stopped, received 4 days of Vanco and Zosyn. - Therapeutic trial of Doxy (Daughter insists her mental problems are due to infection - she state she spoke with Dr Ricardo and he also thought this). Dr Suazo was consulted for delirium, his note was pending last time I checked. Urine culture: P Aeruginosa - Sensitive to Cipro and Cefepime Enterococcus - Sensitive to Vancomycin, Zyvox, and Doxy, with resistance to most of the other antibiotics tested. 2) TME - delirium waxing and waning. - Discussed with neurology and radiology ? of Normal pressure hydrocephalus - per Neurologist he believes this is not the case. - B12 or Folate normal; TSH normal; RPR negative. 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 - Nocturnal Oxymetry - no desaturations. 3) Hypotension - better. - Again BP is low, Na a bit high. - Will start gentle hydration 4) Anemia - Mild, suspect hemodilutional with recent IVF 5) Aortic stenosis - As above - stable. 6) Hypernatremia, resolved. 7) DM with intermittent hyperglycemia, probably related to infection. - Continue sliding scale. - Start Metformin in the AM 8) CAD S/P Stent - on Plavix; stable, continue telemetry 9) Polypharmacy -> Was on B12 1000mcg/day orally - B12 was high - Stopped also her narcotics for pain. - Denies pain. Prevention Lovenox. Sepsis Assessment - Evaluation Sepsis screening result: No Definite Risk Hospital Course Summary Disclaimer: The visit summary below is not to be considered part of the above Progress Note. Hospital Course: 11/16/16 10:12 Assessment Altered mental status with emotional lability Pyuria, probable UTI Recurrent UTI Alzheimer's disease CAD Aortic stenosis, severe, non-nonrheumatic Diabetes mellitus, type II, [id number], with diabetic neuropathy CKD, stage II Normocytic anemia Plan fosfomycin x1 UC gram pos cocci and gram neg staci continue IVF until PO intake improves BGM under reasonable control may need to discuss alternate dc options with family w/u for dementia 11/18/16-11/17/16 Dr. Garcia consulted for MDRO Urine culture: recommends few days of abx then DC; continue Hiprex; consider vaginal estrogen cream P Aeruginosa - Sensitive to Cipro and Cefepime Enterococcus - Sensitive to Vancomicyn Mild hypernatremia - 1/2 NS started 11/19/16 Mild hypotension - continues on IVF
[2016-11-22] MEDS: ESTRADIOL 0.01% VAGINAL CREAM 42.5gm VAGINAL SCH (22:06)
[2016-11-22] MEDS: MELATONIN 1 MG TABLET PO SCH (22:45)
[2016-11-23] MEDS: LEVOTHYROXINE 50 MCG TABLET PO SCH (06:02)
[2016-11-23] MEDS: ASCORBIC ACID 500 MG TABLET PO SCH (08:35)
[2016-11-23] MEDS: METFORMIN 500 MG TABLET PO SCH (08:35)
[2016-11-23] MEDS: ENOXAPARIN 40 MG/0.4 ML INJECTION SQ SCH (08:35)
[2016-11-23] MEDS: METHENAMINE HIPPURATE 1 GM TABLET PO SCH (08:35)
[2016-11-23] MEDS: CYANOCOBALAMIN (B-12) 100mcg TABLET PO SCH (08:35)
[2016-11-23] MEDS: ASPIRIN 81 MG CHEWABLE TABLET PO SCH (11:47)
[2016-11-23] MEDS: DOCUSATE SODIUM 100 MG CAPSULE PO SCH (11:47)
[2016-11-23] MEDS: AMIODARONE 200 MG TABLET PO SCH (11:47)
[2016-11-23] MEDS: CLOPIDOGREL 75 MG TABLET PO SCH (11:47)
[2016-11-23] MEDS: MULTI-VIT + MINERAL (Opti-gen) TABLET PO SCH (11:47)
--- NOTE | 2016-11-23 12:45 | Progress Note ---
Subjective: Pt is still having memory problems according to the daughter not improved today. Not eating well. Has labile affect - appears to be depressed. Objective Vital signs: Temperature 96.7 F L 11/23/16 07:19 Pulse Rate 59 L 11/23/16 07:51 Respiratory Rate 16 11/23/16 07:19 Blood Pressure 97/52 11/23/16 07:19 Pulse Oximetry 96 11/23/16 07:19 Oxygen Delivery Method Room Air Rhythm: Normal Sinus Rhythm Weight: 63.8 kg - Constitutional Present: no acute distress - Routine HEENT Exam Head: Present: normocephalic, atraumatic Eye: Present: EOMI, PERRL - Routine Cardiovascular Exam Present: RRR, S1, S2, murmur - Routine Abdominal Exam Present: soft, non distended, non tender - Routine Extremities Exam Absent: cyanosis, clubbing, edema - Routine Neurological Exam Present: alert Non Focal. - Routine Psychiatric Exam Present: depressed Results - Labs CBC & Chem 7: 11/23/16 08:02 11/23/16 08:02 Microbiology Results: Microbiology 11/17/16 10:58 Peripheral/Iv Start Blood Culture - Final No Growth After 5 Days 11/17/16 11:02 Peripheral/Iv Start Blood Culture - Final No Growth After 5 Days - ABG Interpretation ABG results: 11/22/16 11:50 ABG pH 7.420 ABG pCO2 41 ABG pO2 70 L ABG HCO3 27 H ABG Total CO2 27.9 H ABG O2 Saturation 94.0 L ABG Base Excess 1.9 Assessment and Plan (1) Metabolic encephalopathy Current visit: Yes Status: Acute 11/14/16 20:35 due to acute infection and prerenal by labs. supportive care and PT eval as from home. (2) UTI (urinary tract infection) due to Enterococcus Current visit: Yes Status: Resolved 11/17/16 11:08 Enteroccocus sensitive to Vancomicyn - received 4 days of IV vancomicyn 11/23/16 13:22 DVT Prophylaxis: SCD's, Lovenox GI Prophylaxis: other Assessment and Plan: Summary: This is a 86 YO female with H.O recurrent UTI that came for recurrence. She has been additionally very confused to a point her daughter and care takers state she has never been like this before. She was very logorrheic and had delirium with visual hallucination on 11/17; this was thought to be due to TME due to infection. UA showed Enteroccocus and pseudomona sp and she was placed on Vanco + Cefepime on 11/17. Her mentation improved on 11/18 - but on 11/19 started becoming confused again and on 11/20 was very confused. Yesterday, I had a long discussion with her daughter regarding the ? of UTI. She insists Mom was much improved with Vancomicyn. Explained that ID specialist recommended antibiotics stopped and 4 days could have eradicated Enterococcus if it was a true infection. She wanted (Daugher) to resume vancomicyn - told her without hard evidence of infection this the risks out weight the benefits. Antibiogram showed Enterococcus was sensitive to Doxy - started her on Doxy (11/22 ). 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 - Discussed with neurology and radiology ? of Normal pressure hydrocephalus - per Neurologist he believes this is not the case. 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 - Nocturnal Oxymetry - no desaturations. - Resume Namenda a 5mg BID - first dose now (11/23) - Added Pravachol (Ran interaction check in [employer]'s database) no problem with amiodarone combination. - Plavix is reported to cause confussion (Rarely) and also can cause eosinophillia; pt eosinophil count is NOT YET abnormal but is trending UP. B) CAD S/P Stent + Atrial fibrillation - on Plavix; stable, continue telemetry. Pt was on Warfarin in the past but had a hemorrhagic CVA. - On Plavix + ASA - Pravachol as above. C) Aortic stenosis - As above - stable. D) Mild Hypotension - Again BP is low, Na a bit high. - Will start gentle hydration (IV) - (11/23) 2) UTI - RECURRENT Pt has had extensive urologic evaluation - received 4 days of Vanco and Zosyn due to Urine growing Enterococcus and Pseudomonas. Resumed Doxy (11/22) Will stop Methenamine (11/23) - get a UA and culture friday Am. - Therapeutic trial of Doxy (Daughter insists her mental problems are due to infection - she state she spoke with Dr Ricardo and he also thought this). Dr Suazo was consulted for delirium, his note is pending last time I checked. Urine culture (11/14) - P Aeruginosa - Sensitive to Cipro and Cefepime - Enterococcus - Sensitive to Vancomycin, Zyvox, and Doxy, with resistance to most of the other antibiotics tested. 3) ENDOCRINE ASSESMENT A) DM with intermittent hyperglycemia. Resumed her Metformin. - Continue sliding scale. - On Metformin - Pt does not check BS at home will check HbA1c. 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 - Denies pain. - EOSINOPHILLIA - percentage is trending UP, absolute number not high yet. Has been described with Plavix, and can be related to confussion as well. ( DRESS Syndrome). - Discussed confussion & Plavix (it is rare) daughter not interested in doing a trial without plavix. Prevention Lovenox for DVT prevention. PENDING LABS CORTISOL FREE T4 Sepsis Assessment - Evaluation Sepsis screening result: No Definite Risk Hospital Course Summary Disclaimer: The visit summary below is not to be considered part of the above Progress Note. Hospital Course: 11/16/16 10:12 Assessment Altered mental status with emotional lability Pyuria, probable UTI Recurrent UTI Alzheimer's disease CAD Aortic stenosis, severe, non-nonrheumatic Diabetes mellitus, type II, [id number], with diabetic neuropathy CKD, stage II Normocytic anemia Plan fosfomycin x1 UC gram pos cocci and gram neg staci continue IVF until PO intake improves BGM under reasonable control may need to discuss alternate dc options with family w/u for dementia 11/18/16-11/17/16 Dr. Garcia consulted for MDRO Urine culture: recommends few days of abx then DC; continue Hiprex; consider vaginal estrogen cream P Aeruginosa - Sensitive to Cipro and Cefepime Enterococcus - Sensitive to Vancomicyn Mild hypernatremia - 1/2 NS started 11/19/16 Mild hypotension - continues on IVF
[2016-11-23] MEDS: 1/2 NS 1,000 ML IV SCH (13:20)
[2016-11-23] MEDS: MEMANTINE 5 MG TABLET PO SCH ×2 (13:20→20:50)
[2016-11-23] MEDS: SALINE FLUSH 10ml SYRINGE IV PRN (13:21)
[2016-11-23] MEDS: MELATONIN 1 MG TABLET PO SCH ×2 (20:50→21:03)
[2016-11-23] MEDS: PRAVASTATIN 40 MG TABLET PO SCH ×2 (20:50→21:03)
[2016-11-23] MEDS: ESTRADIOL 0.01% VAGINAL CREAM 42.5gm VAGINAL SCH ×2 (20:51→21:03)
[2016-11-24] MEDS: LEVOTHYROXINE 50 MCG TABLET PO SCH (06:10)
[2016-11-24] MEDS: ASCORBIC ACID 500 MG TABLET PO SCH (08:20)
[2016-11-24] MEDS: CYANOCOBALAMIN (B-12) 100mcg TABLET PO SCH (08:20)
[2016-11-24] MEDS: 1/2 NS 1,000 ML IV SCH (08:21)
[2016-11-24] MEDS: METFORMIN 500 MG TABLET PO SCH (08:21)
[2016-11-24] MEDS: MEMANTINE 5 MG TABLET PO SCH (09:21)
[2016-11-24] MEDS: MULTI-VIT + MINERAL (Opti-gen) TABLET PO SCH (11:31)
[2016-11-24] MEDS: AMIODARONE 200 MG TABLET PO SCH (11:31)
[2016-11-24] MEDS: DOCUSATE SODIUM 100 MG CAPSULE PO SCH (11:31)
[2016-11-24] MEDS: ASPIRIN 81 MG CHEWABLE TABLET PO SCH (11:31)
[2016-11-24] MEDS: CLOPIDOGREL 75 MG TABLET PO SCH (11:31)
--- NOTE | 2016-11-24 15:38 | Progress Note ---
Subjective: Pt appears to be doing a bit better today, still mentation is waxing and waning but she was able to converse better with her daughter today and appears to be more awake and oriented. Objective Vital signs: Temperature 97.3 F 11/24/16 15:12 Pulse Rate 71 11/24/16 15:22 Respiratory Rate 16 11/24/16 15:12 Blood Pressure 114/47 11/24/16 15:22 Pulse Oximetry 96 11/24/16 15:12 Oxygen Delivery Method Room Air Rhythm: Normal Sinus Rhythm Weight: 66.5 kg - Constitutional Present: no acute distress - Routine HEENT Exam Head: Present: normocephalic, atraumatic Eye: Present: EOMI, PERRL - Routine Respiratory Exam Present: CTA bilaterally - Routine Cardiovascular Exam Present: RRR - Routine Abdominal Exam Present: soft, non distended, non tender - Routine Extremities Exam Absent: cyanosis, clubbing, edema - Routine Neurological Exam Present: alert She is sleepy at times, mentaion is slow. Oriented to person and place not to time Results - Labs CBC & Chem 7: 11/23/16 08:02 11/23/16 08:02 Microbiology Results: Microbiology 11/17/16 10:58 Peripheral/Iv Start Blood Culture - Final No Growth After 5 Days 11/17/16 11:02 Peripheral/Iv Start Blood Culture - Final No Growth After 5 Days - ABG Interpretation ABG results: 11/22/16 11:50 ABG pH 7.420 ABG pCO2 41 ABG pO2 70 L ABG HCO3 27 H ABG Total CO2 27.9 H ABG O2 Saturation 94.0 L ABG Base Excess 1.9 Assessment and Plan (1) Metabolic encephalopathy Current visit: Yes Status: Acute 11/14/16 20:35 due to acute infection and prerenal by labs. supportive care and PT eval as from home. (2) UTI (urinary tract infection) due to Enterococcus Current visit: Yes Status: Resolved 11/17/16 11:08 Enteroccocus sensitive to Vancomicyn - received 4 days of IV vancomicyn 11/23/16 13:22 Assessment and Plan: Summary: This is a 86 YO female with H.O recurrent UTI that came for recurrence. She has been additionally very confused to a point her daughter and care takers state she has never been like this before. She was very logorrheic and had delirium with visual hallucination on 11/17; this was thought to be due to TME due to infection. UA showed Enteroccocus and pseudomona sp and she was placed on Vanco + Cefepime on 11/17. Her mentation improved on 11/18 - but on 11/19 started becoming confused again and on 11/20 was very confused. On 11/23, I had a long discussion with her daughter regarding the ? of UTI. She insists Mom was much improved with Vancomicyn. Explained that ID specialist recommended antibiotics stopped and 4 days could have eradicated Enterococcus if it was a true infection. She wanted (Daughter) to resume vancomicyn - told her without hard evidence of infection this the risks out weight the benefits. Antibiogram showed Enterococcus was sensitive to Doxy - started her on Doxy (11/22), pt has improved a bit. 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 - Discussed with neurology and radiology ? of Normal pressure hydrocephalus - per Neurologist he believes this is not the case. 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 - Nocturnal Oxymetry - no desaturations. - TSH normal, FT4 is pending. - Resume Namenda a 5mg BID (11/23), since pt is improving will increase to 10mg PO BID. - Added Pravachol (Ran interaction check in [employer]'s database) no problem with amiodarone combination. - Plavix is reported to cause confussion (Rarely) and also can cause eosinophillia; pt eosinophil count is NOT YET abnormal but is trending UP. B) CAD S/P Stent + Atrial fibrillation - on Plavix; stable, continue telemetry. Pt was on Warfarin in the past but had a hemorrhagic CVA. - On Plavix + ASA - Pravachol as above. C) Aortic stenosis - As above - stable. D) Mild Hypotension - Again BP is low, Na a bit high. - Will start gentle hydration (IV) - (11/23) 2) UTI - RECURRENT Pt had a low temperature yesterday (11/23). Pt has had extensive urologic evaluation - received 4 days of Vanco and Zosyn due to Urine growing Enterococcus and Pseudomonas. - Therapeutic trial of Doxy (Daughter insists her mental problems are due to infection - she state she spoke with Dr Ricardo and he also thought this). Dr Suazo was consulted for delirium, his note is pending last time I checked. - Will stop Methenamine (11/23) - get a UA and culture friday AM. RESUME METHENAMINE ON D/C TO [facility] OR HOME. Urine culture (11/14) - P Aeruginosa - Sensitive to Cipro and Cefepime - Enterococcus - Sensitive to Vancomycin, Zyvox, and Doxy, with resistance to most of the other antibiotics tested. 3) ENDOCRINE ASSESMENT A) DM with intermittent hyperglycemia. Resumed her Metformin. HbA1c is normal. 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 Cortisol was normal. - TSH is normal - Check a Free T4 - if LOW - central hypothyroidims is possible due to the multiple CVA's & hypothalamic dysfunction, but Cortisol is normal. 4) Anemia - Mild, suspect hemodilutional with recent IVF 5) Hypernatremia, will recheck in the AM. 6) Polypharmacy -> Was on B12 1000mcg/day orally - B12 was high - Stopped also her narcotics for pain. - Denies pain. - EOSINOPHILLIA - percentage is trending UP, absolute number not high yet. Has been described with Plavix, and can be related to confussion as well. ( DRESS Syndrome). - Discussed confussion & Plavix (it is rare) daughter not interested in doing a trial without plavix. Prevention Lovenox for DVT prevention. PENDING LABS FREE T4 - Time spent with patient 25 - 35 minutes Sepsis Assessment - Evaluation Sepsis screening result: No Definite Risk Hospital Course Summary Disclaimer: The visit summary below is not to be considered part of the above Progress Note. Hospital Course: 11/16/16 10:12 Assessment Altered mental status with emotional lability Pyuria, probable UTI Recurrent UTI Alzheimer's disease CAD Aortic stenosis, severe, non-nonrheumatic Diabetes mellitus, type II, [id number], with diabetic neuropathy CKD, stage II Normocytic anemia Plan fosfomycin x1 UC gram pos cocci and gram neg staci continue IVF until PO intake improves BGM under reasonable control may need to discuss alternate dc options with family w/u for dementia 11/18/16-11/17/16 Dr. Garcia consulted for MDRO Urine culture: recommends few days of abx then DC; continue Hiprex; consider vaginal estrogen cream P Aeruginosa - Sensitive to Cipro and Cefepime Enterococcus - Sensitive to Vancomicyn Mild hypernatremia - 1/2 NS started 11/19/16 Mild hypotension - continues on IVF
[2016-11-24] MEDS: ACETAMINOPHEN 325 MG TABLET PO PRN (21:46)
[2016-11-24] MEDS: MELATONIN 1 MG TABLET PO SCH (21:46)
[2016-11-24] MEDS: PRAVASTATIN 40 MG TABLET PO SCH (21:47)
[2016-11-24] MEDS: MEMANTINE 10 MG TABLET PO SCH (21:48)
[2016-11-24] MEDS: ESTRADIOL 0.01% VAGINAL CREAM 42.5gm VAGINAL SCH (21:55)
[2016-11-25] MEDS: LEVOTHYROXINE 50 MCG TABLET PO SCH (06:44)
[2016-11-25] MEDS: MEMANTINE 10 MG TABLET PO SCH ×2 (08:59→20:51)
[2016-11-25] MEDS: SALINE FLUSH 10ml SYRINGE IV PRN (08:59)
[2016-11-25] MEDS: METFORMIN 500 MG TABLET PO SCH (08:59)
[2016-11-25] MEDS: ASCORBIC ACID 500 MG TABLET PO SCH (08:59)
[2016-11-25] MEDS: CYANOCOBALAMIN (B-12) 100mcg TABLET PO SCH (08:59)
--- NOTE | 2016-11-25 11:26 | Progress Note ---
<Ria Preciado V - Last Filed: 11/25/16 11:20> Subjective: Edel is seen today in follow up while resting in bed. She complains of feeling cold in her room. Otherwise she has no complaints of pain. Denies feeling short of breath or having chest pain. Nursing staff reports she completed continues to intermittently be confused, however, this may be closer to baseline. Given history of dementia. Objective Vital signs: Temperature 97.5 F 11/25/16 07:10 Pulse Rate 83 11/25/16 08:25 Respiratory Rate 16 11/25/16 07:10 Blood Pressure 105/65 11/25/16 08:25 Pulse Oximetry 97 11/25/16 07:10 Oxygen Delivery Method Room Air Weight: 64.7 kg - Constitutional Present: no acute distress, well nourished, well developed - Routine HEENT Exam Eye: Present: EOMI ENT: Present: mucous membranes moist, dentition normal - Routine Respiratory Exam Present: CTA bilaterally. Absent: wheezes - Routine Cardiovascular Exam Present: RRR, S1, S2. Absent: murmur - Routine Abdominal Exam Present: soft, normoactive bowel sounds, non distended. Absent: tenderness - Routine Extremities Exam Present: normal capillary refill - Routine Skin Exam Present: dry, warm - Routine Neurological Exam Present: alert, CN II-XII intact, moving all extremities - Routine Lymphatic Exam Lymphatic: Absent: adenopathy - Routine Psychiatric Exam Present: cooperative Results - Labs CBC & Chem 7: 11/25/16 10:25 11/25/16 10:26 Microbiology Results: Microbiology 11/17/16 10:58 Peripheral/Iv Start Blood Culture - Final No Growth After 5 Days 11/17/16 11:02 Peripheral/Iv Start Blood Culture - Final No Growth After 5 Days - ABG Interpretation ABG results: 11/22/16 11:50 ABG pH 7.420 ABG pCO2 41 ABG pO2 70 L ABG HCO3 27 H ABG Total CO2 27.9 H ABG O2 Saturation 94.0 L ABG Base Excess 1.9 Assessment and Plan (1) Metabolic encephalopathy Current visit: Yes Status: Acute 11/14/16 20:35 due to acute infection and prerenal by labs. supportive care and PT eval as from home. (2) UTI (urinary tract infection) due to Enterococcus Current visit: Yes Status: Resolved 11/17/16 11:08 Enteroccocus sensitive to Vancomicyn - received 4 days of IV vancomicyn 11/23/16 13:22 Assessment and Plan: 11/25/16 Continue on Doxycycline for antimicrobial coverage of enterococci positive urine. Doxy was started on 11/22/16. Daughter feels like increased confusion and behaviors was related to UTI.Patient does have baseline dementia. Otherwise, she is medically stable. Will evaluate PT notes today as patient does live at home with daughter. Want to be sure she is safe Lovenox for DVT prevention. Discuss discharge planning with CM and attending Dr Mesa Sepsis Assessment - Evaluation Sepsis screening result: No Definite Risk Hospital Course Summary Disclaimer: The visit summary below is not to be considered part of the above Progress Note. Hospital Course: 11/16/16 10:12 Assessment Altered mental status with emotional lability Pyuria, probable UTI Recurrent UTI Alzheimer's disease CAD Aortic stenosis, severe, non-nonrheumatic Diabetes mellitus, type II, [id number], with diabetic neuropathy CKD, stage II Normocytic anemia Plan fosfomycin x1 UC gram pos cocci and gram neg staci continue IVF until PO intake improves BGM under reasonable control may need to discuss alternate dc options with family w/u for dementia 11/18/16-11/17/16 Dr. Garcia consulted for MDRO Urine culture: recommends few days of abx then DC; continue Hiprex; consider vaginal estrogen cream P Aeruginosa - Sensitive to Cipro and Cefepime Enterococcus - Sensitive to Vancomicyn Mild hypernatremia - 1/2 NS started 11/19/16 Mild hypotension - continues on IVF 11/25/16 Continue on Doxycycline for antimicrobial coverage of enterococci positive urine. Doxy was started on 11/22/16. Daughter feels like increased confusion and behaviors was related to UTI.Patient does have baseline dementia. Otherwise, she is medically stable. Will evaluate PT notes today as patient does live at home with daughter. Want to be sure she is safe Lovenox for DVT prevention. Discuss discharge planning with CM and attending Dr Mesa <Sunny Mesa - Last Filed: 11/25/16 16:55> Objective Vital signs: Temperature 98.5 F 11/25/16 15:24 Pulse Rate 69 11/25/16 15:24 Respiratory Rate 18 11/25/16 15:24 Blood Pressure 90/52 11/25/16 16:07 Pulse Oximetry 92 11/25/16 15:24 Oxygen Delivery Method Room Air Results - Labs CBC & Chem 7: 11/25/16 10:25 11/25/16 10:26 Microbiology Results: Microbiology 11/25/16 14:53 Urine, Voided (Cc/notcc) Urine Culture - Preliminary Culture Initiated - Results Pending 11/17/16 10:58 Peripheral/Iv Start Blood Culture - Final No Growth After 5 Days 11/17/16 11:02 Peripheral/Iv Start Blood Culture - Final No Growth After 5 Days - ABG Interpretation ABG results: 11/22/16 11:50 ABG pH 7.420 ABG pCO2 41 ABG pO2 70 L ABG HCO3 27 H ABG Total CO2 27.9 H ABG O2 Saturation 94.0 L ABG Base Excess 1.9 Assessment and Plan (1) Metabolic encephalopathy Current visit: Yes Status: Acute (2) UTI (urinary tract infection) due to Enterococcus Current visit: Yes Status: Resolved DVT Prophylaxis: SCD's Resuscitation Status: Limited Code Assessment and Plan: Have independently interviewed and examined pt. Chart reviewed. Case discussed with CM, pt's daughter, and my MACHINING AND ASSEMBLY SUPERVISOR. Care plan developed with my supervision; agree with above. Doing okay this evening. Daughter at bedside-reports pt has just woken up from a nap. Converses well, but tends to repeat herself. Medically doing well. Breathing stable. No significant BP decrease with positional changes. Lungs: clear CV: regular with murmur AB: soft nt/nd +BS EXT: no edema MSE: awake alert, not restless or agitated. Pleasant to visit with Plan: Recheck UA showing WBC and yeast - check on culture. Will continue with oral antibiotics. PT to help increase strength. CM looking into skilled options- Daughter would like PM. Will continue with care. Anticipate discharge in near future. Hospital Course Summary Disclaimer: The visit summary below is not to be considered part of the above Progress Note.
[2016-11-25] MEDS: DOCUSATE SODIUM 100 MG CAPSULE PO SCH (12:46)
[2016-11-25] MEDS: AMIODARONE 200 MG TABLET PO SCH (12:46)
[2016-11-25] MEDS: ASPIRIN 81 MG CHEWABLE TABLET PO SCH (12:46)
[2016-11-25] MEDS: MULTI-VIT + MINERAL (Opti-gen) TABLET PO SCH (12:46)
[2016-11-25] MEDS: CLOPIDOGREL 75 MG TABLET PO SCH (12:47)
[2016-11-25] MEDS: MELATONIN 1 MG TABLET PO SCH ×2 (20:50→22:32)
[2016-11-25] MEDS: PRAVASTATIN 40 MG TABLET PO SCH ×2 (20:51→22:32)
[2016-11-25] MEDS: ESTRADIOL 0.01% VAGINAL CREAM 42.5gm VAGINAL SCH ×2 (20:57→22:31)
[2016-11-25] MEDS: INSULIN ASPART 100unit/ml INJECTION SQ PRN (21:40)
[2016-11-26] MEDS: LEVOTHYROXINE 50 MCG TABLET PO SCH (06:19)
[2016-11-26 08:17] VITALS: O2SAT 97
[2016-11-26] MEDS: MEMANTINE 10 MG TABLET PO SCH ×2 (10:08→20:48)
[2016-11-26] MEDS: CYANOCOBALAMIN (B-12) 100mcg TABLET PO SCH (10:08)
[2016-11-26] MEDS: METFORMIN 500 MG TABLET PO SCH (10:09)
[2016-11-26] MEDS: ASCORBIC ACID 500 MG TABLET PO SCH (10:09)
[2016-11-26] MEDS: SALINE FLUSH 10ml SYRINGE IV PRN ×2 (10:09→20:48)
[2016-11-26] MEDS: ASPIRIN 81 MG CHEWABLE TABLET PO SCH (12:29)
[2016-11-26] MEDS: MULTI-VIT + MINERAL (Opti-gen) TABLET PO SCH (12:29)
[2016-11-26] MEDS: DOCUSATE SODIUM 100 MG CAPSULE PO SCH (12:29)
[2016-11-26] MEDS: AMIODARONE 200 MG TABLET PO SCH (12:29)
[2016-11-26] MEDS: CLOPIDOGREL 75 MG TABLET PO SCH (12:29)
[2016-11-26] MEDS: INSULIN ASPART 100unit/ml INJECTION SQ PRN ×2 (12:31→17:18)
--- NOTE | 2016-11-26 15:51 | Progress Note ---
<Ria Preciado V - Last Filed: 11/26/16 15:44> Subjective: Edel is seen this afternoon while sleeping. Daughter is at the bedside and she is working on finding a residential facility where she can go short-term to get stronger. Edel did walk over 200ft today with therapy earlier today. BP has been low today 99/58. Objective Vital signs: Temperature 97.0 F 11/26/16 08:15 Pulse Rate 63 11/26/16 09:30 Respiratory Rate 12 11/26/16 08:15 Blood Pressure 99/58 11/26/16 09:30 Pulse Oximetry 97 11/26/16 08:15 Oxygen Delivery Method Room Air Weight: 67.4 kg - Constitutional Present: well nourished, well developed - Routine HEENT Exam Eye: Present: EOMI ENT: Present: mucous membranes moist, dentition normal - Routine Respiratory Exam Present: CTA bilaterally, diminished air movement. Absent: wheezes - Routine Cardiovascular Exam Present: RRR, S1, S2, no murmur. Absent: murmur - Routine Abdominal Exam Present: soft, normoactive bowel sounds, non distended. Absent: tenderness - Routine Extremities Exam Present: full ROM - Routine Skin Exam Present: intact, dry, warm - Routine Neurological Exam Present: alert, CN II-XII intact - Routine Lymphatic Exam Lymphatic: Absent: adenopathy - Routine Psychiatric Exam Present: cooperative Results - Labs CBC & Chem 7: 11/26/16 05:27 11/26/16 05:27 Microbiology Results: Microbiology 11/25/16 14:53 Urine, Voided (Cc/notcc) Urine Culture - Preliminary Gram Negative Héctor 11/17/16 10:58 Peripheral/Iv Start Blood Culture - Final No Growth After 5 Days 11/17/16 11:02 Peripheral/Iv Start Blood Culture - Final No Growth After 5 Days - ABG Interpretation ABG results: 11/22/16 11:50 ABG pH 7.420 ABG pCO2 41 ABG pO2 70 L ABG HCO3 27 H ABG Total CO2 27.9 H ABG O2 Saturation 94.0 L ABG Base Excess 1.9 Assessment and Plan (1) Metabolic encephalopathy Current visit: Yes Status: Acute 11/14/16 20:35 due to acute infection and prerenal by labs. supportive care and PT eval as from home. (2) UTI (urinary tract infection) due to Enterococcus Current visit: Yes Status: Resolved 11/17/16 11:08 Enteroccocus sensitive to Vancomicyn - received 4 days of IV vancomicyn 11/23/16 13:22 Assessment and Plan: 11/26/16 Continues on Doxycycline antibiotic. It appears recent urine culture was cancelled. Monitor blood pressure as it has been lower today. Daughter requested discontinuing statin and melatonin. Working with CM and daughter for discharge plan. Hopeful for SNU for further therapy, with the jail goal to get patient back home with daughter. Sepsis Assessment - Evaluation Sepsis screening result: No Definite Risk Hospital Course Summary Disclaimer: The visit summary below is not to be considered part of the above Progress Note. Hospital Course: 11/16/16 10:12 Assessment Altered mental status with emotional lability Pyuria, probable UTI Recurrent UTI Alzheimer's disease CAD Aortic stenosis, severe, non-nonrheumatic Diabetes mellitus, type II, [id number], with diabetic neuropathy CKD, stage II Normocytic anemia Plan fosfomycin x1 UC gram pos cocci and gram neg héctor continue IVF until PO intake improves BGM under reasonable control may need to discuss alternate dc options with family w/u for dementia 11/18/16-11/17/16 Dr. Garcia consulted for MDRO Urine culture: recommends few days of abx then DC; continue Hiprex; consider vaginal estrogen cream P Aeruginosa - Sensitive to Cipro and Cefepime Enterococcus - Sensitive to Vancomicyn Mild hypernatremia - 1/2 NS started 11/19/16 Mild hypotension - continues on IVF 11/25/16 Continue on Doxycycline for antimicrobial coverage of enterococci positive urine. Doxy was started on 11/22/16. Daughter feels like increased confusion and behaviors was related to UTI.Patient does have baseline dementia. Otherwise, she is medically stable. Will evaluate PT notes today as patient does live at home with daughter. Want to be sure she is safe Lovenox for DVT prevention. Discuss discharge planning with CM and attending Dr Mesa 11/26/16 Continues on Doxycycline antibiotic. It appears recent urine culture was cancelled. Monitor blood pressure as it has been lower today. Daughter requested discontinuing statin and melatonin. Working with CM and daughter for discharge plan. Hopeful for SNU for further therapy, with the jail goal to get patient back home with daughter. <Sunny Mesa - Last Filed: 11/26/16 19:58> Objective Vital signs: Temperature 97.9 F 11/26/16 16:10 Pulse Rate 68 11/26/16 16:10 Respiratory Rate 14 11/26/16 16:10 Blood Pressure 102/61 11/26/16 18:06 Pulse Oximetry 97 11/26/16 16:10 Oxygen Delivery Method Room Air Results - Labs CBC & Chem 7: 11/26/16 05:27 11/26/16 05:27 Microbiology Results: Microbiology 11/25/16 14:53 Urine, Voided (Cc/notcc) Urine Culture - Preliminary Gram Negative Héctor 11/17/16 10:58 Peripheral/Iv Start Blood Culture - Final No Growth After 5 Days 11/17/16 11:02 Peripheral/Iv Start Blood Culture - Final No Growth After 5 Days - ABG Interpretation ABG results: 11/22/16 11:50 ABG pH 7.420 ABG pCO2 41 ABG pO2 70 L ABG HCO3 27 H ABG Total CO2 27.9 H ABG O2 Saturation 94.0 L ABG Base Excess 1.9 Assessment and Plan (1) Metabolic encephalopathy Current visit: Yes Status: Acute (2) UTI (urinary tract infection) due to Enterococcus Current visit: Yes Status: Resolved Assessment and Plan: Have independently interviewed and examined pt. Chart reviewed. Case discussed with CM and my POWER NUT RUNNER OPERATOR. Care plan developed with my supervision; agree with above. Resting this evening, but easily awakened. Very tired post walk this afternoon- was able to go 200 feet. Breathing well. No ab pain or nausea. Lungs: clear CV: regular with murmur AB: soft nt/nd MSE: awake alert, pleasant to visit with. Not agitated or restless Plan: IVF bolus give as BP low. BP improved post bolus. Continue antibiotics. Encourage activities and therapy. Anticipate discharge to skilled in near future if pt continues to do well. Hospital Course Summary Disclaimer: The visit summary below is not to be considered part of the above Progress Note.
[2016-11-26] MEDS ORDERED: NS 500 ML IV ONE (17:03)
[2016-11-26] MEDS: ESTRADIOL 0.01% VAGINAL CREAM 42.5gm VAGINAL SCH (21:06)
[2016-11-27] MEDS: LEVOTHYROXINE 50 MCG TABLET PO SCH (05:30)
[2016-11-27 09:03] VITALS: BP 122/76; PULSE 76; RESP 16; TEMP 96.8
--- NOTE | 2016-11-27 09:11 | Progress Note ---
Subjective Date: 11/27/16 Subjective: Ms. La is sleeping, but awakened to voice. She denies any fever, chills, N/V or pain. She is not aware of any urinary symptoms. Exam Vital Signs: Temperature 96.8 F 11/27/16 09:00 Pulse Rate 76 11/27/16 09:00 Respiratory Rate 16 11/27/16 09:00 Blood Pressure 122/76 11/27/16 09:00 Pulse Oximetry 97 11/27/16 09:00 Oxygen Delivery Method Room Air Height: 1.65 m Weight: 68.3 kg Body Mass Index: 24.3 - Constitutional Present: no acute distress - Routine HEENT Exam Head: Present: normocephalic, atraumatic Eye: Present: EOMI, PERRL ENT: Present: mucous membranes moist - Routine Neck Exam Present: supple - Routine Respiratory Exam Present: CTA bilaterally - Routine Cardiovascular Exam Present: RRR, murmur (II/ DARIN) - Routine Abdominal Exam Present: soft, normoactive bowel sounds, non distended. Absent: tenderness - Routine Extremities Exam Absent: edema - Routine Skin Exam Absent: rash - Routine Neurological Exam Present: alert, CN II-XII intact. Absent: motor deficit - Routine Psychiatric Exam Present: normal affect Results - Labs CBC & Chem 7: 11/26/16 05:27 11/26/16 05:27 Labs: UA 8/7 with TNTC WBC Microbiology Results: Microbiology 11/25/16 14:53 Urine, Voided (Cc/notcc) Urine Culture - Final Escherichia coli (10-50,000 col) 11/17/16 10:58 Peripheral/Iv Start Blood Culture - Final No Growth After 5 Days 11/17/16 11:02 Peripheral/Iv Start Blood Culture - Final No Growth After 5 Days - ABG Interpretation ABG results: 11/22/16 11:50 ABG pH 7.420 ABG pCO2 41 ABG pO2 70 L ABG HCO3 27 H ABG Total CO2 27.9 H ABG O2 Saturation 94.0 L ABG Base Excess 1.9 Impression: Urine culture with >100K E. faecium and 50-100K Pseudomonas, with some pyuria. Not clear if truly symptomatic. AMS, clinically doubt this is due to UTI. Dementia and delirium Urinary retention. DM II, not IR CAD Aortic stenosis A fib on amiodarone Recommendation: I don't feel that her urine findings correlate with her mental status changes. I don't think she needs any further antibiotics. She was restarted on Doxycycline on Friday. OK to D/c without antibiotics. Discussed with Dr. Mesa. She has an appointment with me in clinic later this month. Sepsis Assessment - Evaluation Sepsis screening result: No Definite Risk
--- NOTE | 2016-11-27 10:08 | Progress Note ---
Subjective: F/U: Encephalopathy, UTI Resting this morning, but awakens easily to soft verbal stimuli. No new complaints. Slept well. Not reporting pains or discomfort. Breathing well. No upset stomach or ab pain. No f/c. Objective Vital signs: Temperature 96.8 F 11/27/16 09:00 Pulse Rate 76 11/27/16 09:00 Respiratory Rate 16 11/27/16 09:00 Blood Pressure 122/76 11/27/16 09:00 Pulse Oximetry 97 11/27/16 09:00 Oxygen Delivery Method Room Air Body Mass Index: 24.3 - Constitutional Present: no acute distress, well nourished, well developed, cooperative - Routine HEENT Exam Head: Present: normocephalic, atraumatic Eye: Present: EOMI, PERRL. Absent: conjunctival icterus ENT: Present: mucous membranes moist - Routine Respiratory Exam Present: CTA bilaterally. Absent: respiratory distress, wheezes, crackles - Routine Cardiovascular Exam Present: RRR, murmur - Routine Abdominal Exam Present: soft, normoactive bowel sounds, non distended, non tender. Absent: guarding - Routine Extremities Exam Present: cyanosis, clubbing, no edema, pulses intact - Routine Musculoskeletal Exam Musculoskeletal: Present: no clubbing or cyanosis, normal strength - Routine Skin Exam Present: intact, warm, normal turgor - Routine Neurological Exam Present: alert, CN II-XII intact, vision grossly intact, hearing grossly intact. Absent: motor deficit - Routine Psychiatric Exam Present: normal affect, cooperative. Absent: anxious, agitated Results - Labs CBC & Chem 7: 11/26/16 05:27 11/26/16 05:27 Microbiology Results: Microbiology 11/25/16 14:53 Urine, Voided (Cc/notcc) Urine Culture - Final Escherichia coli 11/17/16 10:58 Peripheral/Iv Start Blood Culture - Final No Growth After 5 Days 11/17/16 11:02 Peripheral/Iv Start Blood Culture - Final No Growth After 5 Days - ABG Interpretation ABG results: 11/22/16 11:50 ABG pH 7.420 ABG pCO2 41 ABG pO2 70 L ABG HCO3 27 H ABG Total CO2 27.9 H ABG O2 Saturation 94.0 L ABG Base Excess 1.9 Assessment and Plan (1) Metabolic encephalopathy Current visit: Yes Status: Resolved (2) UTI (urinary tract infection) due to Enterococcus Current visit: Yes Status: Resolved 11/17/16 11:08 Enteroccocus sensitive to Vancomicyn - received 4 days of IV vancomycin Resuscitation Status: Limited Code (No CPR) Assessment and Plan: Altered mental status with emotional lability - resolved UTI with Urine culture with >100K E. faecium and 50-100K Pseudomonas, with some pyuria. Not clear if truly symptomatic. AMS - possible secondary to UTI, likely secondary to progressive dementia. Recurrent UTI Alzheimer's disease CAD Aortic stenosis, severe, non-nonrheumatic Diabetes mellitus, type II, [id number], with diabetic neuropathy CKD, stage II Normocytic anemia Medically patient has improved significantly. Encephalopathy has resolved. Not seeing signs of sepsis. With deconditioning and debility secondary to this prolonged hospitalization, continued skilled care warranted for PT/OT. Arrangements made for discharge to [facility] for short stay of skilled care arranged. In discussion with Dr Garcia, no antimicrobial therapy warranted. Will discontinue antibiotics. Will discharge patient to skilled care. F/U with Dr Caballero in 1 week for hospital follow up. F/U with Dr Garcia in ~2 weeks (has apt already set) for ID reevaluation. Medically stable for discharge to Skilled. See orders for details. Case discussed with CM and Dr Garcia. Time spent with patient care and discharge greater than 35 minutes. - Time spent with patient greater than 35 minutes Sepsis Assessment - Evaluation Sepsis screening result: No Definite Risk Hospital Course Summary Disclaimer: The visit summary below is not to be considered part of the above Progress Note. Hospital Course: 11/16/16 Assessment Altered mental status with emotional lability Pyuria, probable UTI Recurrent UTI Alzheimer's disease CAD Aortic stenosis, severe, non-nonrheumatic Diabetes mellitus, type II, [id number], with diabetic neuropathy CKD, stage II Normocytic anemia Plan fosfomycin x1 UC gram pos cocci and gram neg staci continue IVF until PO intake improves BGM under reasonable control may need to discuss alternate dc options with family w/u for dementia 11/18/16-11/17/16 Dr. Garcia consulted for MDRO Urine culture: recommends few days of abx then DC; continue Hiprex; consider vaginal estrogen cream P Aeruginosa - Sensitive to Cipro and Cefepime Enterococcus - Sensitive to Vancomicyn Mild hypernatremia - 1/2 NS started 11/19/16 Mild hypotension - continues on IVF 11/25/16 Continue on Doxycycline for antimicrobial coverage of enterococci positive urine. Doxy was started on 11/22/16. Daughter feels like increased confusion and behaviors was related to UTI.Patient does have baseline dementia. Otherwise, she is medically stable. Will evaluate PT notes today as patient does live at home with daughter. Want to be sure she is safe. Lovenox for DVT prevention. Discuss discharge planning with CM. 11/26/16 Continues on Doxycycline antibiotic. It appears recent urine culture was cancelled. Monitor blood pressure as it has been lower today. Daughter requested discontinuing statin and melatonin. Working with CM and daughter for discharge plan. Hopeful for SNU for further therapy, with the care home goal to get patient back home with daughter. 11/27/16 Medically patient has improved significantly. Encephalopathy has resolved. Not seeing signs of sepsis. With deconditioning and debility secondary to this prolonged hospitalization, continued skilled care warranted for PT/OT. Arrangements made for discharge to [facility] for short stay of skilled care arranged. In discussion with Dr Garcia, no antimicrobial therapy warranted. Will discontinue antibiotics. Will discharge patient to skilled care. F/U with Dr Caballero in 1 week for hospital follow up. F/U with Dr Garcia in ~2 weeks (has apt already set) for ID reevaluation. Medically stable for discharge to Skilled. See orders for details.
--- NOTE | 2016-11-27 10:38 | Extended Care Facility Orders ---
Admission Orders Admit to:: [facility] Allergies/Adverse Reactions: Allergies lisinopril Allergy (Severe, Verified 11/14/16 19:37) Airway Obstruction Admitting Diagnosis: Acute cystitis with metabolic encephalopathy Admitting Physician: Dr Mesa Attending Physician: Dr Caballero Code Status: Limited Code - No CPR; other modalities okay Anticiapted Length of Stay: 30 days or less Rehab Potential: fair Rehab Prognosis: fair Diet: No added salt, no concentrated sweets. Food Consistency: SOFT/ PUREED - regular liquids. House nutritional supplement TID. May use Facility Protocol or Standing Orders: Yes May have flu vaccine: Yes Evaluations/Treatment: PT (Gen debility, gait instability), OT (Gen debility, gait instability) [facility] Certification: I certify that SNF services are required to be given on an Inpatient basis because of the patients need for longterm care on a continuing basis for the condition(s) for which he/she received inpatient hospital services prior to his/her transfer to the SNF. SNF inpatient care is necessary for the following reasons Indication for [facility]: Med Admininistration, Other (Skilled PT/OT to help maximize functional status. ) - Additional Information In Event of Arrest: Do Not Start CPR (Limited code - No CPR) Resident is Aware of Diagnosis: No (Demential limits) Additional Orders: F/U with Dr Caballero in 1 week for hospital follow up. F/U with Dr Hasmukh Garcia for ID evaluation in ~ 2 weeks. Accuchecks ac meals, q hs, and as needed.
--- NOTE | 2016-11-27 10:43 | Discharge Summary ---
Discharge Information Date of admission: 11/14/16 18:59 Anticipated date of discharge: 11/27/16 Attending Physician: Abhishek Arredondo MD Primary care physician: Colleen Caballero MD Consults: 11/18/16 Physician Consult: Nell Garcia (ID) Reason For Exam: UTI - Complicated 11/22/16 Physician Consult: Debbie Suazo (Neuro) Reason For Exam: dementia + delirium PT - Discharge Diagnosis Discharge Diagnosis: Altered mental status with emotional lability - resolved UTI with Urine culture with >100K E. faecium and 50-100K Pseudomonas, with some pyuria. Not clear if truly symptomatic. AMS - possible secondary to UTI, likely secondary to progressive dementia. Recurrent UTI Alzheimer's disease CAD Aortic stenosis, severe, non-nonrheumatic Diabetes mellitus, type II, [id number]-[id number], with diabetic neuropathy CKD, stage II Normocytic anemia - Laboratory Labs: 11/26/16 05:27 11/26/16 05:27 - Microbiology Microbiology 11/25/16 14:53 Urine, Voided (Cc/notcc) Urine Culture - Final Escherichia coli 11/17/16 10:58 Peripheral/Iv Start Blood Culture - Final No Growth After 5 Days 11/17/16 11:02 Peripheral/Iv Start Blood Culture - Final No Growth After 5 Days History of Present Illness HPI: Mrs. La is an 86-year-old female with multiple chronic medical conditions and history of recurrent urinary tract infections. She's been treated with Cefdinir for 3 courses recently after urine culture in September was positive for Morganella sensitive only to cefepime/ceftriaxone and a variety of IV antibiotics. The patient completed a course of antibiotics several days ago but in the past 1-2 days developed increasing confusion prompting ER evaluation were pyuria was again detected. The patient was reported to be lethargic yesterday with nausea. Her daughter reports that she's had some chilling and has been cold but no fever has been identified. The patient is complained of increased back pain from baseline. There's been no emesis or dyspnea. Patient is unable to provide any history. Daughter also notes that the patient has been more tearful which is atypical. The patient has undergone recent urologic evaluation by Dr. Mendoza including sonogram, post void residual, and cystoscopy. Incomplete bladder emptying was reported. ID follow-up is scheduled in the near future. For complete details of the H&P, refer to that document. Objective Vital signs: Temperature 96.8 F 11/27/16 09:00 Pulse Rate 76 11/27/16 09:00 Respiratory Rate 16 11/27/16 09:00 Blood Pressure 122/76 11/27/16 09:00 Pulse Oximetry 97 11/27/16 09:00 Oxygen Delivery Method Room Air Body Mass Index: 24.3 Hospital Course This is a general summary of the patient's hospital course. For more details refer to the complete medical record. Hospital course: 11/16/16 Assessment Altered mental status with emotional lability Pyuria, probable UTI Recurrent UTI Alzheimer's disease CAD Aortic stenosis, severe, non-nonrheumatic Diabetes mellitus, type II, bej-msuwiay-ryiatmwrf, with diabetic neuropathy CKD, stage II Normocytic anemia Plan fosfomycin x1 UC gram pos cocci and gram neg staci continue IVF until PO intake improves BGM under reasonable control may need to discuss alternate dc options with family w/u for dementia 11/18/16-11/17/16 Dr. Garcia consulted for MDRO Urine culture: recommends few days of abx then DC; continue Hiprex; consider vaginal estrogen cream P Aeruginosa - Sensitive to Cipro and Cefepime Enterococcus - Sensitive to Vancomicyn Mild hypernatremia - 1/2 NS started 11/19/16 Mild hypotension - continues on IVF Confusion increasing. 11/20/[address] to increase. Dr Garcia reevaluated patient from and ID standpoints. Reports: I think it's very difficult to say that her mental status changes are related to a UTI. She was treated with fosfomycin x 1, and now has been on Vancomycin and cefepime for 4 days. I would continue the hiprex that she' s been on as an outpatient to try to decrease recurrent UTIs, and I would also consider using vaginal estrogen cream. I will stop her antibiotics today. Recommend observing her for a short time, and then she could likely be discharged. 11/21/16 Dr Suazo consulted for neurological evaluation of patients encephalopathy. His evaluation is: ASSESSMENT Metabolic encephalopathy associated with UTI, dehydration and abnormal cardiac functioning. There is no evidence of new stroke or bleed. There is no evidence of seizure activities on examination and in the history. PLAN 1. Optimize treatment for UTI. Consider reinitiating antibiotic treatment. 2. Improve fluid intake. 3. Avoid sedation. 4. Keep patient busy with activities, consider physical therapy for passive movement and to try to help the patient become more active in the bed and try to move the patient from a bed to a chair. 5. Consider transfer to rehab after medical conditions are stabilized. 11/22/16 Long discussion with her daughter regarding the ? of UTI. She insists Mom was much improved with Vancomicyn. Explained that ID specialist recommended antibiotics stopped and 4 days could have eradicated Enterococcus if it was a true infection. She wanted (Daugher) to resume vancomicyn - told her without hard evidence of infection this the risks out weight the benefits. Antibiogram showed Enterococcus was sensitive to Doxy. Therapeutic trial of Doxy (Daughter insists her mental problems are due to infection - she state she spoke with Dr Ricardo and he also thought this). Dr Suazo was consulted for delirium. 11/23/16 Pt is still having memory problems according to the daughter not improved today. Not eating well. Has labile affect - appears to be depressed. 11/24/16 Pt appears to be doing a bit better today, still mentation is waxing and waning but she was able to converse better with her daughter today and appears to be more awake and oriented. 11/25/16 Continue on Doxycycline for antimicrobial coverage of enterococci positive urine. Doxy was started on 11/22/16. Daughter feels like increased confusion and behaviors was related to UTI. Patient does have baseline dementia. Otherwise, she is medically stable. Will evaluate PT notes today as patient does live at home with daughter. Want to be sure she is safe. Lovenox for DVT prevention. Discuss discharge planning with CM - working on skilled care for discharge. 11/26/16 Continues on Doxycycline antibiotic. Monitor blood pressure as it has been lower today. Daughter requested discontinuing statin and melatonin. Working with CM and daughter for discharge plan. Hopeful for SNU for further therapy, with the fpc goal to get patient back home with daughter. 11/27/16 Medically patient has improved significantly. Encephalopathy has resolved. Not seeing signs of sepsis. With deconditioning and debility secondary to this prolonged hospitalization, continued skilled care warranted for PT/OT. Arrangements made for discharge to [facility] for short stay of skilled care arranged. In discussion with Dr Garcia, no antimicrobial therapy warranted. Will discontinue antibiotics. Repeat urine culture with subclinical growth of Ecoli. No sensitivity to Doxycycline reported. Will discharge patient to skilled care. F/U with Dr Caballero in 1 week for hospital follow up. F/U with Dr Garcia in ~2 weeks (has apt already set) for ID reevaluation. Medically stable for discharge to Skilled. See orders for details. Time spent with patient: discharge greater than 30 minutes DVT Prophylaxis: SCD's, Lovenox Discharge Plan - Med Rec/Dispo Referrals/Follow Up: Colleen Caballero MD [Family Provider] - 1 Week (Hospital F/U - pt discharged to Skilled care. ) Nell Garcia MD [Physician] - 2 Weeks (ID follow up - has apt scheduled in about 2 weeks. ) Truven Instructions: Urinary Traction Infection in Older Adults (GEN) Prescriptions: New Estradiol Vag Cream [Estrace Vag Cream] 1 applic VAGINAL HS tube Continue Docusate Sodium [Colace] 100 mg PO NOON #0 cap Amiodarone HCl 100 mg PO NOON #0 Multivit-Min/FA/Lycopen/Lutein [Centrum Silver Tablet] 1 tab PO NOON #0 Levothyroxine Sodium 50 mcg PO ACB #0 Sitagliptin Phos/Metformin HCl [Janumet 50-500 mg Tablet] 1 tab PO NOON #0 Methenamine Hippurate [Hiprex] 1 gm PO DAILY Memantine HCl [Namenda Xr] 28 mg PO NOON #0 cap Cyanocobalamin (Vitamin B-12) [Vitamin B-12] 1 tab PO NOON #30 tab Cranberry Fruit Extract [Cranberry] 500 mg PO BID #0 Aspirin 81 mg PO NOON Clopidogrel [Plavix] 75 mg PO NOON Discharge Instructions/Outpatient Orders: Final Provider Discharge Instructions Location: Determined By Patient - Disposition 61 To Any Swing Bed
[2016-11-27] MEDS: MEMANTINE 10 MG TABLET PO SCH (10:45)
[2016-11-27] MEDS: CYANOCOBALAMIN (B-12) 100mcg TABLET PO SCH (10:45)
[2016-11-27] MEDS: METFORMIN 500 MG TABLET PO SCH (10:45)
[2016-11-27] MEDS: ASCORBIC ACID 500 MG TABLET PO SCH (10:45)
[2016-11-27] MEDS: AMIODARONE 200 MG TABLET PO SCH (12:58)
[2016-11-27] MEDS: CLOPIDOGREL 75 MG TABLET PO SCH (12:58)
[2016-11-27] MEDS: MULTI-VIT + MINERAL (Opti-gen) TABLET PO SCH (12:58)
[2016-11-27] MEDS: DOCUSATE SODIUM 100 MG CAPSULE PO SCH (13:01)
[2016-11-27] MEDS: ASPIRIN 81 MG CHEWABLE TABLET PO SCH (13:01)
[2016-11-27] MEDS: INSULIN ASPART 100unit/ml INJECTION SQ PRN (13:01)
== END 2016-11-27 13:50 | DRG 689 ==
LOC: ED 17:06 → MED 18:59
PROVIDERS: ADMIT Hospitalist; ATTEND Internal Medicine

== ENCOUNTER 2017-02-17 18:12 | Inpatient (IN) ==
[2017-02-17] MEDS ORDERED: SALINE FLUSH 10ml SYRINGE IVF PRN (18:42)
--- NOTE | 2017-02-17 18:44 | Emergency Department Report ---
Female Urogenital HPI - General Chief complaint: Urogenital-Female Stated complaint: UTI Time Seen by Provider: 02/17/17 18:21 Source: patient, family (daughter Mariajose) Limitations: altered mental status - History of Present Illness HPI Narrative: Edel is an 87 year old female patient of Dr. Caballero and Dr. Mendoza who has been experiencing some altered mental status over the last several weeks with a known history of UTI. Recently treated with two courses of oral keflex with no improvement in symptoms. Has been having chills. No documented fevers. Hospitalized in October and Jan 24 for cardiac stents by Dr. Vanessa. Hospitalized this summer with resistant UTI requiring IV abx and inpatient treatment for about a month. She had seen Dr. Garcia during that hospitalization, however daughter requests she not see her again. Patient lives with daughter Mariajose and has lived with her for six years. However, the daughter does work as a flight steward and has been gone more recently. In her absence, patient has full- time caregivers in the home in addition to home health. This past week home health nurse reported patient has having very foul smelling urine and a specimen was sent and cultured. Dr. Mendoza's office called daughter today and indicated bacteria that grew out was positive for enterococcus faecium and ecoli and both only sensitive to IV Vancomycin. Dr. Mendoza advised daughter to take patient to ER for admission for IV Vanco. During this initial evaluation, patient is very tired, responding occasionally to verbal stimuli but does not maintain arousal for beyond 15 seconds. She has been complaining of low back pain to daughter. Daughter reports no n/v. MD Complaint: "UTI" Urinary Symptoms: foul smelling urine - Related Data Home Medications Medication Instructions Recorded Confirmed Docusate Sodium [Colace] 100 mg PO DAILY #0 cap 09/05/15 02/17/17 Memantine HCl [Namenda Xr] 28 mg PO DAILY #0 cap 09/05/15 02/17/17 Amiodarone HCl 100 mg PO DAILY #0 03/31/16 02/17/17 Multivit-Min/FA/Lycopen/Lutein 1 tab PO DAILY #0 03/31/16 02/17/17 [Centrum Silver Tablet] Levothyroxine Sodium 50 mcg PO ACB #0 06/29/16 02/17/17 Sitagliptin Phos/Metformin HCl 1 tab PO DAILY #0 06/29/16 02/17/17 [Janumet 50-500 mg Tablet] Cranberry Fruit Extract [Cranberry] 500 mg PO BID #0 08/13/16 02/17/17 Cyanocobalamin (Vitamin B-12) 1,000 mcg PO DAILY #30 tab 08/13/16 02/17/17 [Vitamin B-12] Aspirin 81 mg PO DAILY 10/14/16 02/17/17 Clopidogrel [Plavix] 75 mg PO DAILY 11/14/16 02/17/17 Ascorbic Acid [Vitamin C with Kelli 500 mg PO DAILY 02/17/17 02/17/17 Hips] Methenamine Hippurate [Hiprex] 1 gm PO DAILY 02/17/17 02/17/17 Previous Rx's Medication Instructions Recorded Estradiol Vag Cream [Estrace Vag 1 applic VAGINAL HS tube 11/27/16 Cream] Allergies Allergy/AdvReac Type Severity Reaction Status Date / Time lisinopril Allergy Severe Airway Verified 02/17/17 18:32 Obstruction Review of Systems All systems: reviewed and negative except as stated Constitutional: Reports: as per HPI, chills Cardiovascular: Denies: chest pain Respiratory: Denies: cough Gastrointestinal: Reports: constipation (lg BM today). Denies: nausea, vomiting Endocrine: Reports: as per HPI, fatigue PFSH Patient Stated Medical History Cerebrovascular Accident Yes: 5 YEARS AGO Dementia Yes Syncope Yes Other Cardiology Yes: SEVERE AORTIC STENOSIS, LEFT ARM BLOOD CLOT Diabetes Mellitus Type 2 Yes Other GI Yes: constipation Hx Incontinence Yes Hx Urinary Tract Infection Yes: frequent Clotting Problems Yes: l arm Osteoarthritis Yes Sepsis Yes Now No Surgical History: Patient's Surgical History: Lap briseyda. KEVIN. Right TKA - Social History Smoking status: Never smoker Current residence: Apartment/Private Home Physical Exam - Limitations Limitations: altered mental status - Head Head exam: atraumatic, normocephalic, normal inspection - Eye Eye exam: Present: normal appearance, PERRL. Absent: scleral icterus, conjunctival injection - ENT ENT exam: Present: normal exam - Neck Neck exam: Present: normal inspection, trachea midline - Chest Chest inspection: Present: normal inspection, symmetric chest wall rise - Respiratory Respiratory exam: Present: normal lung sounds bilaterally. Absent: respiratory distress - Cardiovascular Cardiovascular exam: Present: regular rate, normal rhythm, systolic murmur - Abdominal Exam Abdominal exam: Present: soft, normal bowel sounds. Absent: distention, tenderness - Extremities Exam Extremities exam: Present: normal inspection - Skin Skin exam: Present: warm, dry, intact - Neurological Exam Neurological exam: Present: alert, other (oriented x 1) - Psychiatric Psychiatric exam: Present: flat affect, other (dementia hx-altered presently) Course Course Narrative: Daughter indicates patient did not take her one time evening dose of amiodarone 100 mg because it was not available at the pharmacy today when she went to pick it up. This is ordered to be given in the ER. Vanco 1 gm IV ordered after collection of BC and lactate. Discussed with daughter plan to admit and hopefully can start a PICC line for outpatient Vanco infusions once encephalopathy has improved. - Consultations Consultation #1: Telehospitalist Dr Eric called-agreed to accept patient for admit for UTI with encephalopathy Vital Signs Temperature 98.9 F 02/17/17 18:31 Pulse Rate 67 02/17/17 18:31 Respiratory Rate 16 02/17/17 18:31 Blood Pressure 130/61 02/17/17 18:31 Pulse Oximetry 94 02/17/17 18:31 Temperature 97.9 F 02/17/17 19:59 Pulse Rate 70 02/17/17 19:59 Respiratory Rate 20 02/17/17 19:59 Blood Pressure 130/61 02/17/17 19:59 Pulse Oximetry 96 02/17/17 19:59 Urogenital-Female - Differential Diagnosis Likely: urinary tract infection - Lab Data Attestation: I reviewed the patient's lab results. Result diagrams: 02/17/17 19:24 02/17/17 19:24 Lab Results 02/17/17 02/17/17 02/17/17 Range/Units 19:24 19:24 19:47 WBC 7.6 (4.5-11.0) T/MM3 RBC 4.22 (4.00-5.20) M/MM3 Hgb 13.2 (12-16) GM/DL Hct 40.8 (36-46) % MCV 96.7 (80-100) UM3 MCH 31.3 (26-34) UUG MCHC 32.4 (31-37) GM/DL RDW Std Deviation 45.6 (36.9-50.2) FL Plt Count 209 D (130-400) T/MM3 MPV 9.1 L (9.4-12.4) UM3 Neutrophils % (Manual) 62.0 (33-66) % Lymphocytes % (Manual) 31.0 (23-45) % Monocytes % (Manual) 4.0 (0-9.0) % Eosinophils % (Manual) 3.0 (0-4) % Neutrophils # (Manual) 4.7 (1.8-7.7) T/MM3 Lymphocytes # (Manual) 2.4 (1-4.8) T/MM3 Monocytes # (Manual) 0.3 (0-0.8) T/MM3 Eosinophils # (Manual) 0.2 (0-0.5) T/MM3 RBC Morph Comment Normal Turbidity < 20 (0-20) Sodium 142 (134-144) MEQ/L Potassium 4.3 (3.6-5) MEQ/L Chloride 107 (98-107) MEQ/L Carbon Dioxide 26 (22-30) MEQ/L Anion Gap 9 (5-15) MEQ/L BUN 25.0 H (7-17) MG/DL Creatinine 1.0 (0.7-1.2) MG/DL GFR Calculation 52 BUN/Creatinine Ratio 25 (6-26) RATIO Glucose 101 (65-110) MG/DL Calculated Osmolality 277 (261-280) MOSM/KG Calcium 9.3 (8.4-10.2) MG/DL Total Bilirubin 0.90 (0.20-1.30) MG/DL Icterus Index < 2 (0-7) AST 17 (14-36) U/L ALT 29 (9-52) U/L Alkaline Phosphatase 90 (38-126) U/L Troponin I < 0.012 (0-0.12) ng/ml Total Protein 7.1 (6.3-8.2) G/DL Albumin 3.8 (3.5-5.0) G/DL Globulin 3.3 (2.4-3.6) G/DL Albumin/Globulin Ratio 1.2 (1.1-2.2) RATIO Plasma Lactate (0.6-2.2) MMOL/L Specimen Hemolysis < 15 (0-25) Ur Collection Type Not provided Urine Color Yellow (YELLOW) Urine Clarity Sl cloudy Urine pH 6.5 (5.0-8.0) Ur Specific [place] 1.015 (1.015-1.025) Urine Protein Negative (NEGATIVE) Urine Glucose (UA) Negative (NEGATIVE) Urine Ketones Negative (NEGATIVE) Urine Occult Blood Trace-lysed (NEGATIVE) Urine Nitrate Positive A (NEGATIVE) Urine Bilirubin Negative (NEGATIVE) Urine Urobilinogen 0.2 (NORMAL) EU/DL Ur Leukocyte Esterase 2+ A (NEGATIVE) Urine RBC 0-1 (0-3) /HPF Urine WBC 10-20 H (0-5) /HPF Ur Squamous Epith Cells 0-5 Urine Bacteria 3+ H (NEGATIVE) Ur Culture Indicated? Cult reflexed &setup 02/17/17 Range/Units 20:14 WBC (4.5-11.0) T/MM3 RBC (4.00-5.20) M/MM3 Hgb (12-16) GM/DL Hct (36-46) % MCV (80-100) UM3 MCH (26-34) UUG MCHC (31-37) GM/DL RDW Std Deviation (36.9-50.2) FL Plt Count (130-400) T/MM3 MPV (9.4-12.4) UM3 Neutrophils % (Manual) (33-66) % Lymphocytes % (Manual) (23-45) % Monocytes % (Manual) (0-9.0) % Eosinophils % (Manual) (0-4) % Neutrophils # (Manual) (1.8-7.7) T/MM3 Lymphocytes # (Manual) (1-4.8) T/MM3 Monocytes # (Manual) (0-0.8) T/MM3 Eosinophils # (Manual) (0-0.5) T/MM3 RBC Morph Comment Turbidity (0-20) Sodium (134-144) MEQ/L Potassium (3.6-5) MEQ/L Chloride (98-107) MEQ/L Carbon Dioxide (22-30) MEQ/L Anion Gap (5-15) MEQ/L BUN (7-17) MG/DL Creatinine (0.7-1.2) MG/DL GFR Calculation BUN/Creatinine Ratio (6-26) RATIO Glucose (65-110) MG/DL Calculated Osmolality (261-280) MOSM/KG Calcium (8.4-10.2) MG/DL Total Bilirubin (0.20-1.30) MG/DL Icterus Index (0-7) AST (14-36) U/L ALT (9-52) U/L Alkaline Phosphatase (38-126) U/L Troponin I (0-0.12) ng/ml Total Protein (6.3-8.2) G/DL Albumin (3.5-5.0) G/DL Globulin (2.4-3.6) G/DL Albumin/Globulin Ratio (1.1-2.2) RATIO Plasma Lactate 1.5 (0.6-2.2) MMOL/L Specimen Hemolysis (0-25) Ur Collection Type Urine Color (YELLOW) Urine Clarity Urine pH (5.0-8.0) Ur Specific [place] (1.015-1.025) Urine Protein (NEGATIVE) Urine Glucose (UA) (NEGATIVE) Urine Ketones (NEGATIVE) Urine Occult Blood (NEGATIVE) Urine Nitrate (NEGATIVE) Urine Bilirubin (NEGATIVE) Urine Urobilinogen (NORMAL) EU/DL Ur Leukocyte Esterase (NEGATIVE) Urine RBC (0-3) /HPF Urine WBC (0-5) /HPF Ur Squamous Epith Cells Urine Bacteria (NEGATIVE) Ur Culture Indicated? Disposition Clinical Impression: Urinary tract infection [place]position: 02 [place] [facility] [place] Condition: Stable Prescriptions: No Action Docusate Sodium [Colace] 100 mg PO DAILY #0 cap Amiodarone HCl 100 mg PO DAILY #0 Multivit-Min/FA/Lycopen/Lutein [Centrum Silver Tablet] 1 tab PO DAILY #0 Levothyroxine Sodium 50 mcg PO ACB #0 Sitagliptin Phos/Metformin HCl [Janumet 50-500 mg Tablet] 1 tab PO DAILY #0 Estradiol Vag Cream [Estrace Vag Cream] 1 applic VAGINAL HS tube Methenamine Hippurate [Hiprex] 1 gm PO DAILY Ascorbic Acid [Vitamin C with Kelli Hips] 500 mg PO DAILY Memantine HCl [Namenda Xr] 28 mg PO DAILY #0 cap Cyanocobalamin (Vitamin B-12) [Vitamin B-12] 1,000 mcg PO DAILY #30 tab Cranberry Fruit Extract [Cranberry] 500 mg PO BID #0 Aspirin 81 mg PO DAILY Clopidogrel [Plavix] 75 mg PO DAILY Referrals: oClleen Caballero MD [Family Provider] - - Seen By: midlevel
[2017-02-17] MEDS ORDERED: AMIODARONE 200 MG TABLET PO ONE (20:26)
[2017-02-17] MEDS ORDERED: VANCOMYCIN - PHARMACY CONSULT MC ONE (21:42)
[2017-02-17] MEDS ORDERED: ACETAMINOPHEN 325 MG TABLET PO PRN (21:42)
[2017-02-17] MEDS ORDERED: ONDANSETRON 4 MG/2 ML INJECTION IVP PRN (21:42)
[2017-02-17] MEDS ORDERED: NON-FORMULARY MEDICATION 1 EACH EACH (Cranberry Fruit Extract [Cranberry] 500 MG) PO SCH (21:42)
[2017-02-17] MEDS ORDERED: CEFTRIAXONE 1 G in NS 100 ML IV SCH (22:15)
--- NOTE | 2017-02-17 22:29 | History & Physical Report ---
<Piter Eric I - Last Filed: 02/17/17 22:16> History of Present Illness Date: 02/17/17 Chief complaint: Altered Mental Status HPI: Edel is a pleasant 87-year-old female patient Of who was brought to the emergency department this evening by her daughter, who lives with her and takes care of her, at the recommendation of , her urologist. Edel suffers from some mild dementia, but is normally pretty high functioning according to her daughter. Lately, she has been less verbal, not participating in activities as usual, and she had a urinalysis checked late last week which revealed recurrent growth of enterococcus Faecium as well as E. coli. Her daughter states that she had a urinary tract infection with these organisms earlier in the summer, and was hospitalized at that time. She also had recent coronary arteriography, and had a stent placed on January 24 in [place]. Based on her declining mental status which is consistent with delirium associated with UTI with her underlying dementia, similar to previous episode, she is admitted for intravenous antibiotics per the recommendation of her urologist, and for further evaluation, management, and elucidation of the most appropriate disposition. Review of Systems ROS unobtainable: due to mental status ( The daughter provides review of systems and history) - Constitutional Constitutional: Present: fatigue, lethargy. Absent: chills, fever(s), increased appetite - EENMT Mouth/Throat: Absent: changes in swallowing - Cardiovascular Cardiovascular: Present: orthopnea. Absent: chest pain, syncope Vascular: Present: pedal edema ( trace chronic) - Respiratory Respiratory: Absent: cough, dyspnea, wheezing - Gastrointestinal Gastrointestinal: Present: constipation ( chronic). Absent: diarrhea, nausea, vomiting - Genitourinary Genitourinary Comments: foul-smelling urine - Musculoskeletal Musculoskeletal: Absent: abnormal gait - Neurological Neurological: Present: confusion - Psychiatric Psychiatric: Present: behavioral changes [facility] Medical History Updates: CAD with 2 stents this year: one in October, one earlier this month as above 01/24. Moderate to Severe Aortic Stenosis. Mild Dementia. LUE DVT. DM controlled on diet and [place]. 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 hypothyroidism. review of the chart also reveals paroxysmal atrial fibrillation Surgical History: Patient's Surgical History: Lap briseyda. KEVIN. Right TKA Family History: Noncontributory - Social History Smoking status: Never smoker Household members: caregiver ( her daughter accompanies her tonight and is her primary caregiver. 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) Current residence: Apartment/Private Home Medications Home Medications Medication Instructions Recorded Confirmed Type Docusate Sodium [Colace] 100 mg PO DAILY #0 cap 09/05/15 02/17/17 History Memantine HCl [Namenda Xr] 28 mg PO DAILY #0 cap 09/05/15 02/17/17 History Amiodarone HCl 100 mg PO DAILY #0 03/31/16 02/17/17 History Multivit-Min/FA/Lycopen/Lutein 1 tab PO DAILY #0 03/31/16 02/17/17 History [Centrum Silver Tablet] Levothyroxine Sodium 50 mcg PO ACB #0 06/29/16 02/17/17 History Sitagliptin Phos/Metformin HCl 1 tab PO DAILY #0 06/29/16 02/17/17 History [Janumet 50-500 mg Tablet] Cranberry Fruit Extract [Cranberry] 500 mg PO BID #0 08/13/16 02/17/17 History Cyanocobalamin (Vitamin B-12) 1,000 mcg PO DAILY #30 tab 08/13/16 02/17/17 History [Vitamin B-12] Aspirin 81 mg PO DAILY 10/14/16 02/17/17 History Clopidogrel [Plavix] 75 mg PO DAILY 11/14/16 02/17/17 History Ascorbic Acid [Vitamin C with Kelli 500 mg PO DAILY 02/17/17 02/17/17 History Hips] Methenamine Hippurate [Hiprex] 1 gm PO DAILY 02/17/17 02/17/17 History Allergies Allergy/AdvReac Type Severity Reaction Status Date / Time lisinopril Allergy Severe Airway Verified 02/17/17 18:32 Obstruction Exam Vital Signs: Temperature 97.9 F 02/17/17 21:10 Pulse Rate 70 02/17/17 21:10 Respiratory Rate 20 02/17/17 21:10 Blood Pressure 170/66 H 02/17/17 21:10 Pulse Oximetry 96 02/17/17 21:10 Telemetry Rhythm: Sinus Rhythm - Constitutional Present: no acute distress Comments: alert pleasant minimally verbal - Routine HEENT Exam Head: Present: normocephalic Eye: Present: EOMI, PERRL - Routine Neck Exam Present: supple, full ROM. Absent: JVD - Routine Respiratory Exam Present: CTA bilaterally. Absent: accessory muscle use, dyspnea, respiratory distress - Routine Cardiovascular Exam Present: RRR, murmur ( systolic ejection murmur, 3/6) - Routine Abdominal Exam Present: soft, normoactive bowel sounds, non distended, non tender. Absent: distended - Routine Extremities Exam Present: edema ( trace bipedal edema symmetric). Absent: cyanosis, clubbing - Routine Skin Exam Present: intact. Absent: rash - Routine Neurological Exam Present: alert, CN II-XII intact. Absent: oriented X3 moves up all 4 extremities to purpose and command - Routine Psychiatric Exam Present: unable to assess ( pleasant, alert, not oriented, minimally verbal but does follow simple commands) - Additional findings Additional findings: Examination performed using telemedicine equipment with the assistance of the bedside nurse Results - Labs CBC & Chem 7: 02/17/17 19:24 02/17/17 19:24 Assessment and Plan (1) Recurrent UTI Current visit: Yes Status: Acute (2) Metabolic encephalopathy Current visit: Yes Status: Resolved (3) Type 2 diabetes mellitus without complications Current visit: Yes Status: Chronic (4) Hypothyroid Current visit: Yes Status: Acute (5) HTN (hypertension) Current visit: Yes Status: Acute (6) Paroxysmal atrial fibrillation Current visit: No Status: Chronic Assessment and Plan: as above, Edel La is an 87-year-old female who presents with recurrent urinary tract infection, polymicrobial including enterococcus faecium and E. coli, complicated by metabolic encephalopathy on chronic dementia. she is admitted and placed on intravenous vancomycin and Rocephin. She is hemodynamically stable, and shows no evidence of sepsis at this time other than the metabolic encephalopathy. she will benefit from intravenous vancomycin therapy, and likely PICC line placement in the right arm due to her prior history of left upper extremity DVT. We will continue the majority of her home medications for hypertension, diabetes mellitus, hypothyroidism, and coronary artery disease. I reviewed her and her daughter's desire for her to be "DO NOT RESUSCITATE" status. We will provide further symptomatic, supportive, and diagnostic cares as the current workup, or changes in her clinical scenario indicate. The plan of care was discussed with the patient's daughter at the bedside at the time of my evaluation and she expressed understanding and desire to proceed. DVT Prophylaxis: SCD's Resuscitation Status: Do Not Resuscitate Hospital Course Summary Disclaimer: The visit summary below is not to be considered part of the above Progress Note. <oDmo Sheehan P - Last Filed: 02/18/17 20:28> History of Present Illness Date: 02/18/17 HPI: Seen and examined this morning in bed only medical floor. She is moderately somnolent at this time. She has been able to state that she is felt systemically ill with terrible chills weakness and a sense of malaise she says "sickness"for the last 2 days. She denies flank pain, suprapubic pain or dysuria however a full 10 system review by my exam was not able to be completed as she became too drowsy. I have read and noted and agree with the contents of the medical history surgical history PFSH Patient Stated Medical History Cerebrovascular Accident Yes: 5 YEARS AGO Dementia Yes Syncope Yes Other Cardiology Yes: SEVERE AORTIC STENOSIS, LEFT ARM BLOOD CLOT Diabetes Mellitus Type 2 Yes Other GI Yes: constipation Hx Incontinence Yes Hx Urinary Tract Infection Yes: frequent Clotting Problems Yes: l arm Osteoarthritis Yes Sepsis Yes Now No Clinic Medical History Syncope and collapse (Acute Medical) Paroxysmal atrial fibrillation (Chronic Medical) Atherosclerotic heart disease of [place] coronary artery without angina pectoris (Chronic Medical) Nonrheumatic aortic valve stenosis (Chronic Medical) Type 2 diabetes mellitus without complications (Chronic Medical) Metabolic encephalopathy (Resolved Medical) Recurrent UTI (Acute Medical) Acute cystitis without hematuria (Acute Medical) Hypothyroid (Acute Medical) HTN (hypertension) (Acute Medical) UTI (urinary tract infection) due to Enterococcus (Resolved Medical) Syncopal episodes (Acute Medical) Elevated troponin (Acute Medical) Urinary tract infection (Acute Medical) Exam Vital Signs: Temperature 96.3 F L 02/18/17 16:00 Pulse Rate 65 02/18/17 16:00 Respiratory Rate 12 02/18/17 16:00 Blood Pressure 98/55 02/18/17 16:00 Pulse Oximetry 96 02/18/17 16:00 Height/Weight/BMI: Height 5 ft 6 in Weight 64.5 kg Body Mass Index 22.5 Results - Labs CBC & Chem 7: 02/17/17 19:24 02/17/17 19:24 Assessment and Plan (1) Paroxysmal atrial fibrillation Current visit: No Status: Chronic (2) Type 2 diabetes mellitus without complications Current visit: Yes Status: Chronic (3) Metabolic encephalopathy Current visit: Yes Status: Resolved (4) Recurrent UTI Current visit: Yes Status: Acute (5) Hypothyroid Current visit: Yes Status: Acute (6) HTN (hypertension) Current visit: Yes Status: Acute Assessment and Plan: My physical exam corroborates Dr. Eric's physical exam. (Agree with history, physical, assessment and plan. Comprehensive physical findings correlate to the above note.) In addition the patient has clearly lung gaines bilaterally cardiovascular exam is benign and patient has no significant flank tenderness Assessment and plan: I reviewed the prior microbiology. I agree with vancomycin Rocephin at this time.. Patient will require likely greater than 48 hours antibiotics and then transition to an outpatient treatment regimen using a PICC line if oral Zyvox is not feasible option. Documented on Dragon speech to text. Efforts to crack speech recognition errors performed, but variation may exist Hospital Course Summary Disclaimer: The visit summary below is not to be considered part of the above Progress Note.
[2017-02-17 22:50] VITALS: BMI 22.5
[2017-02-18] MEDS: NS 1,000 ML IV SCH ×4 (00:07→23:05)
[2017-02-18] MEDS: ESTRADIOL 0.01% VAGINAL CREAM 42.5gm VAGINAL SCH ×2 (00:24→21:16)
[2017-02-18] MEDS: LEVOTHYROXINE 50 MCG TABLET PO SCH (06:17)
[2017-02-18] MEDS ORDERED: DOCUSATE SODIUM 100 MG CAPSULE PO SCH (09:00)
[2017-02-18] MEDS: METFORMIN 500 MG TABLET PO SCH (10:39)
[2017-02-18] MEDS: SITAGLIPTIN 100 MG TABLET PO SCH (10:46)
[2017-02-18] MEDS: CYANOCOBALAMIN (B-12) 500mcg TABLET PO SCH (10:46)
[2017-02-18] MEDS: AMIODARONE 200 MG TABLET PO SCH (10:47)
[2017-02-18] MEDS: MEMANTINE 10 MG TABLET PO SCH ×2 (10:47→21:16)
[2017-02-18] MEDS: ASPIRIN 81 MG CHEWABLE TABLET PO SCH (10:47)
[2017-02-18] MEDS: CLOPIDOGREL 75 MG TABLET PO SCH (10:47)
[2017-02-18] MEDS: METHENAMINE HIPPURATE 1 GM TABLET PO SCH (10:47)
[2017-02-18] MEDS: ASCORBIC ACID 500 MG TABLET PO SCH (10:48)
[2017-02-18] MEDS: DOCUSATE SODIUM 100 MG CAPSULE PO SCH (10:48)
[2017-02-18] MEDS: MULTI-VITAMIN + MINERAL TABLET PO SCH (10:49)
--- NOTE | 2017-02-18 11:11 | Pharmacy Consult-Antibiotics ---
Pharmacy Consult-Vancomycin - Laboratory Information WBC 7.6 T/MM3 (4.5-11.0) 02/17/17 19:24 BUN 25.0 MG/DL (7-17) H 02/17/17 19:24 Creatinine 1.0 MG/DL (0.7-1.2) 02/17/17 19:24 - Consult Information VANCOMYCIN CONSULT: Dx: UTI Current Renal Fx: SCr = 1.0mg/dl. Will give Vancomycin 1,000mg IV q18hrs. Will continue to monitor and adjust regimen to maintain therapeutic levels. Thank you.
[2017-02-18] MEDS ORDERED: WARFARIN 5 MG TABLET PO SCH (12:00)
[2017-02-18] MEDS: CEFTRIAXONE 1 G in NS 100 ML IV SCH (12:17)
[2017-02-19] MEDS: LEVOTHYROXINE 50 MCG TABLET PO SCH (06:15)
[2017-02-19] MEDS: SITAGLIPTIN 100 MG TABLET PO SCH (08:22)
[2017-02-19] MEDS: ASCORBIC ACID 500 MG TABLET PO SCH (08:22)
[2017-02-19] MEDS: ASPIRIN 81 MG CHEWABLE TABLET PO SCH (08:22)
[2017-02-19] MEDS: DOCUSATE SODIUM 100 MG CAPSULE PO SCH (08:22)
[2017-02-19] MEDS: METHENAMINE HIPPURATE 1 GM TABLET PO SCH (08:22)
[2017-02-19] MEDS: CLOPIDOGREL 75 MG TABLET PO SCH (08:23)
[2017-02-19] MEDS: METFORMIN 500 MG TABLET PO SCH (08:23)
[2017-02-19] MEDS: MEMANTINE 10 MG TABLET PO SCH ×2 (08:23→21:03)
[2017-02-19] MEDS: CYANOCOBALAMIN (B-12) 500mcg TABLET PO SCH (08:23)
[2017-02-19] MEDS: AMIODARONE 200 MG TABLET PO SCH (08:23)
[2017-02-19] MEDS: MULTI-VITAMIN + MINERAL TABLET PO SCH (08:23)
--- NOTE | 2017-02-19 09:14 | Pharmacy Consult-Antibiotics ---
Pharmacy Consult-Vancomycin - Laboratory Information WBC 7.6 T/MM3 (4.5-11.0) 02/17/17 19:24 BUN 25.0 MG/DL (7-17) H 02/17/17 19:24 Creatinine 1.0 MG/DL (0.7-1.2) 02/17/17 19:24 Vancomycin Trough 9.83 UG/ML (15-20) L 02/19/17 05:28 - Consult Information VANCOMYCIN CONSULT: Vancomycin Trough = 9.83 mcg/ml. Today's SCr = N/A Will give Vancomycin 1,000 mg IV q12hrs. Will continue to monitor and make adjustments accordingly. Thank you.
[2017-02-19] MEDS: NS 1,000 ML IV SCH ×3 (11:19→23:11)
[2017-02-19] MEDS: CEFTRIAXONE 1 G in NS 100 ML IV SCH (11:53)
--- NOTE | 2017-02-19 16:02 | Progress Note ---
<Maria C Garg L - Last Filed: 02/19/17 17:57> - Date 02/19/17 Subjective: Patient is sleeping during most of the visit. Quite a bit of time spent talking with the daughter to gather history. Patient did wake up for vitals and was able to tell me she was in [place] and knew her daughter was there. Daughter reports patient is typically "with it" and "very clear" mentally when she doesn't have a UTI, but patient has had recurrent UTI and was most recently treated with Keflex x 10 days starting Jan 24 for a UTI caused by e coli (per daughter.) Symptoms patient typically exhibits when she has a UTI are strong smelling urine, fatigue, increased urinary incontinence and confusion. Nurse reports patient has had some pain in her RUQ with palpation today, but otherwise does not complain of pain. Daughter reports patient has slept most of the day. Patient has appt scheduled Feb [address] (uro) here in [facility] to f-u on recurrent UTI. Objective Vital signs: Temperature 96.6 F L 02/19/17 00:00 Pulse Rate 68 02/19/17 07:29 Respiratory Rate 14 02/19/17 07:29 Blood Pressure 100/62 02/19/17 07:29 Pulse Oximetry 98 02/19/17 00:00 Height/Weight/BMI: Height 1.68 m Weight 66.3 kg Body Mass Index 22.5 - Constitutional Present: no acute distress, well developed - Routine HEENT Exam Head: Present: normocephalic - Routine Respiratory Exam Present: CTA bilaterally. Absent: wheezes - Routine Cardiovascular Exam Present: RRR, murmur - Routine Abdominal Exam Present: soft, normoactive bowel sounds, tenderness (mild RUQ and L flank), non distended - Routine Extremities Exam Present: edema (tr b/l), normal capillary refill - Routine Skin Exam Present: dry, warm - Routine Neurological Exam Absent: alert, oriented X3 - Routine Lymphatic Exam Lymphatic: Absent: adenopathy - Routine Psychiatric Exam Present: cooperative Results - Labs CBC & Chem 7: 02/19/17 05:28 02/19/17 05:28 Microbiology Results: urine culture - prelim - gram neg staci and gram positive cocci Assessment and Plan (1) Paroxysmal atrial fibrillation Current visit: No Status: Chronic (2) Type 2 diabetes mellitus without complications Current visit: Yes Status: Chronic (3) Metabolic encephalopathy Current visit: Yes Status: Resolved (4) Recurrent UTI Current visit: Yes Status: Acute (5) Hypothyroid Current visit: Yes Status: Acute (6) HTN (hypertension) Current visit: Yes Status: Acute Assessment and Plan: Assessment Altered mental status associated with UTI Recurrent UTI Paroxysmal atrial fibrillation Atherosclerotic heart disease Nonrheumatic aortic valve stenosis Type 2 diabetes mellitus without complications Hypothyroid HTN Dementia Plan --Her sensitivity is still pending on the urine collected at time of admission. Will continue vanco and Rocephin based on the results of her OP culture. CM has checked into cost of Zyvox and daughter determined it is [place] prohibitive so would like to continue IV vancomycin. --Labs and vitals are stable. Hospital Course Summary Disclaimer: The visit summary below is not to be considered part of the above Progress Note. Hospital Course: Assessment Altered mental status associated with UTI Recurrent UTI Paroxysmal atrial fibrillation Atherosclerotic heart disease Nonrheumatic aortic valve stenosis Type 2 diabetes mellitus without complications Hypothyroid HTN Dementia 02/18/17 Edel La is an 87-year-old female who presents with recurrent urinary tract infection, polymicrobial including enterococcus faecium and E. coli, complicated by metabolic encephalopathy on chronic dementia. she is admitted and placed on intravenous vancomycin and Rocephin. She is hemodynamically stable, and shows no evidence of sepsis at this time other than the metabolic encephalopathy. she will benefit from intravenous vancomycin therapy, and likely PICC line placement in the right arm due to her prior history of left upper extremity DVT. We will continue the majority of her home medications for hypertension, diabetes mellitus, hypothyroidism, and coronary artery disease. I reviewed her and her daughter's desire for her to be "DO NOT RESUSCITATE" status. We will provide further symptomatic, supportive, and diagnostic cares as the current workup, or changes in her clinical scenario indicate. 02/19/17 --Her sensitivity is still pending on the urine collected at time of admission. Will continue vanco and Rocephin based on the results of her OP culture. CM has checked into cost of Zyvox and daughter determined it is [place] prohibitive so would like to continue IV vancomycin. --Labs and vitals are stable. <Domo Sheehan P - Last Filed: 02/19/17 22:31> - Date 02/19/17 Objective Vital signs: Temperature 97.7 F 02/19/17 16:00 Pulse Rate 69 02/19/17 16:00 Respiratory Rate 14 02/19/17 07:29 Blood Pressure 127/69 02/19/17 16:00 Pulse Oximetry 97 02/19/17 16:00 Height/Weight/BMI: Height 5 ft 6 in Weight 66.3 kg Body Mass Index 22.5 Results - Labs CBC & Chem 7: 02/19/17 05:28 02/19/17 05:28 Assessment and Plan (1) Paroxysmal atrial fibrillation Current visit: No Status: Chronic (2) Type 2 diabetes mellitus without complications Current visit: Yes Status: Chronic (3) Metabolic encephalopathy Current visit: Yes Status: Resolved (4) Recurrent UTI Current visit: Yes Status: Acute (5) Hypothyroid Current visit: Yes Status: Acute (6) HTN (hypertension) Current visit: Yes Status: Acute Assessment and Plan: Seen and examined patient on same day as the above note. Agree with history, physical, assessment and plan. Comprehensive physical findings correlate to the above note. I've also discussed with case management the possibility of placing her on swing bed status Documented on Dragon speech to text. Efforts to correct speech recognition errors performed, but variation may exist Hospital Course Summary Disclaimer: The visit summary below is not to be considered part of the above Progress Note.
[2017-02-19] MEDS: ESTRADIOL 0.01% VAGINAL CREAM 42.5gm VAGINAL SCH (21:03)
--- NOTE | 2017-02-19 22:40 | Progress Note ---
- Date 02/18/17 Subjective: Patient seen with daughter and extended conversation regarding concerns of treatment plan and problem of the frequent occurrence of her urinary tract infections were addressed. Mother still appears confused, pleasantly encephalopathic. Objective Vital signs: Temperature 97.7 F 02/19/17 16:00 Pulse Rate 69 02/19/17 16:00 Respiratory Rate 14 02/19/17 07:29 Blood Pressure 127/69 02/19/17 16:00 Pulse Oximetry 97 02/19/17 16:00 Rhythm: Normal Sinus Rhythm Height/Weight/BMI: Height 5 ft 6 in Weight 66.3 kg Body Mass Index 22.5 - Constitutional Present: well nourished, well developed - Routine HEENT Exam Head: Present: normocephalic, atraumatic Eye: Present: EOMI, PERRL. Absent: conjunctival icterus, scleral injection ENT: Present: mucous membranes moist, dentition normal - Routine Respiratory Exam Present: CTA bilaterally. Absent: respiratory distress, wheezes - Routine Cardiovascular Exam Present: RRR, S1, S2, murmur - Routine Abdominal Exam Present: soft, normoactive bowel sounds, non distended. Absent: tenderness - Routine Extremities Exam Present: normal capillary refill - Routine Skin Exam Present: dry, warm - Routine Neurological Exam Present: alert, CN II-XII intact - Routine Lymphatic Exam Lymphatic: Absent: adenopathy - Routine Psychiatric Exam Present: cooperative. Absent: normal affect, good insight, good judgment Results - Labs CBC & Chem 7: 02/20/17 03:39 02/20/17 03:39 Assessment and Plan (1) Paroxysmal atrial fibrillation Status: Chronic (2) Type 2 diabetes mellitus without complications Status: Chronic (3) Metabolic encephalopathy Status: Resolved (4) Recurrent UTI Status: Acute (5) Hypothyroid Status: Acute (6) HTN (hypertension) Status: Acute Assessment and Plan: Patient is historically intolerant of fluoroquinolones and has failed outpatient oral Keflex (I believe that this is partly due to the unresolved enterococcus which were not clear with monotherapy). The only outpatient alternative would be Keflex and Linezolid which would require prior approval and if the Keflex has been unsuccessful prior I am not hopeful for outpatient treatment I have concerns that this patient is likely colonized outside her urethra with enterococcus somehow, and that this may not be a very viable option but recurrence after this may be defined as definitive treatment and discourage further attempts with such a frail late octogenarian. At this time will continue IV treatment with Rocephin and vancomycin. Patient has managed with peripheral lines thus far but PIC line may become necessary did I will request swing bed status for her to complete the 7 day course of vancomycin and cephalosporin. - Time spent with patient Time with patient PN: 35 minutes Hospital Course Summary Disclaimer: The visit summary below is not to be considered part of the above Progress Note. Hospital Course: Assessment Altered mental status associated with UTI Recurrent UTI Paroxysmal atrial fibrillation Atherosclerotic heart disease Nonrheumatic aortic valve stenosis Type 2 diabetes mellitus without complications Hypothyroid HTN Dementia 02/18/17 Edel La is an 87-year-old female who presents with recurrent urinary tract infection, polymicrobial including enterococcus faecium and E. coli, complicated by metabolic encephalopathy on chronic dementia. she is admitted and placed on intravenous vancomycin and Rocephin. She is hemodynamically stable, and shows no evidence of sepsis at this time other than the metabolic encephalopathy. she will benefit from intravenous vancomycin therapy, and likely PICC line placement in the right arm due to her prior history of left upper extremity DVT. We will continue the majority of her home medications for hypertension, diabetes mellitus, hypothyroidism, and coronary artery disease. I reviewed her and her daughter's desire for her to be "DO NOT RESUSCITATE" status. We will provide further symptomatic, supportive, and diagnostic cares as the current workup, or changes in her clinical scenario indicate. 02/19/17 --Her sensitivity is still pending on the urine collected at time of admission. Will continue vanco and Rocephin based on the results of her OP culture. CM has checked into cost of Zyvox and daughter determined it is [place] prohibitive so would like to continue IV vancomycin. --Labs and vitals are stable.
[2017-02-20] MEDS: LEVOTHYROXINE 50 MCG TABLET PO SCH (06:04)
[2017-02-20 09:20] VITALS: BP 107/55; PULSE 71; RESP 16; TEMP 97.4; O2SAT 96
[2017-02-20] MEDS: METFORMIN 500 MG TABLET PO SCH (10:25)
[2017-02-20] MEDS: AMIODARONE 200 MG TABLET PO SCH (10:25)
[2017-02-20] MEDS: ASPIRIN 81 MG CHEWABLE TABLET PO SCH (10:26)
[2017-02-20] MEDS: ASCORBIC ACID 500 MG TABLET PO SCH (10:26)
[2017-02-20] MEDS: CLOPIDOGREL 75 MG TABLET PO SCH (10:27)
[2017-02-20] MEDS: DOCUSATE SODIUM 100 MG CAPSULE PO SCH (10:27)
[2017-02-20] MEDS: CYANOCOBALAMIN (B-12) 500mcg TABLET PO SCH (10:27)
[2017-02-20] MEDS: MULTI-VITAMIN + MINERAL TABLET PO SCH (10:28)
[2017-02-20] MEDS: METHENAMINE HIPPURATE 1 GM TABLET PO SCH (10:28)
[2017-02-20] MEDS: MEMANTINE 10 MG TABLET PO SCH (10:28)
[2017-02-20] MEDS: SITAGLIPTIN 100 MG TABLET PO SCH (10:28)
[2017-02-20] MEDS: NS 1,000 ML IV SCH (10:34)
--- NOTE | 2017-02-20 11:49 | Pharmacy Consult-Antibiotics ---
Pharmacy Consult-Vancomycin - Laboratory Information WBC 5.7 T/MM3 (4.5-11.0) 02/20/17 03:39 BUN 13.0 MG/DL (7-17) 02/20/17 03:39 Creatinine 0.8 MG/DL (0.7-1.2) 02/20/17 03:39 Vancomycin Trough 17.43 UG/ML (15-20) 02/20/17 03:39 - Consult Information Vancomycin trough in therapeutic range. No changes ordered. Thank you.
[2017-02-20] MEDS: CEFTRIAXONE 1 G in NS 100 ML IV SCH (12:46)
--- NOTE | 2017-02-20 22:09 | Discharge Summary ---
Discharge Information Date of admission: 02/17/17 20:24 Attending Physician: Domo Sheehan MD Primary care physician: Colleen Caballero MD Consults: 02/17/17 22:13 Case Management Consult [CONS] Routine Reason For Exam: Dispo planning, anticipate need for home health vs - Discharge Diagnosis (1) Paroxysmal atrial fibrillation Status: Chronic (2) Type 2 diabetes mellitus without complications Status: Chronic (3) Metabolic encephalopathy Status: Resolved (4) Recurrent UTI Status: Acute (5) Hypothyroid Status: Acute (6) HTN (hypertension) Status: Acute - Laboratory Labs: 02/20/17 03:39 02/20/17 03:39 History of Present Illness HPI: Seen and examined this morning in bed only medical floor. She is moderately somnolent at this time. She has been able to state that she is felt systemically ill with terrible chills weakness and a sense of malaise she says "sickness"for the last 2 days. She denies flank pain, suprapubic pain or dysuria however a full 10 system review by my exam was not able to be completed as she became too drowsy. I have read and noted and agree with the contents of the medical history surgical history For full details see the complete H&P as performed by the tele-hospitalist 02/20/17 22:09 Objective Vital signs: Temperature 97.4 F 02/20/17 08:00 Pulse Rate 71 02/20/17 08:00 Respiratory Rate 16 02/20/17 08:00 Blood Pressure 107/55 02/20/17 08:00 Pulse Oximetry 96 02/20/17 08:00 Rhythm: Normal Sinus Rhythm Height/Weight/BMI: Height 5 ft 6 in Weight 66.8 kg Body Mass Index 22.5 Hospital Course This is a general summary of the patient's hospital course. For more details refer to the complete medical record. Hospital course: Assessment Altered mental status associated with UTI- now at baseline Recurrent UTI Paroxysmal atrial fibrillation Atherosclerotic heart disease Nonrheumatic aortic valve stenosis Type 2 diabetes mellitus without complications Hypothyroid HTN Dementia 02/18/17 Edel La is an 87-year-old female who presents with recurrent urinary tract infection, polymicrobial including enterococcus faecium and E. coli, complicated by metabolic encephalopathy on chronic dementia. she is admitted and placed on intravenous vancomycin and Rocephin. She is hemodynamically stable, and shows no evidence of sepsis at this time other than the metabolic encephalopathy. she will benefit from intravenous vancomycin therapy, and likely PICC line placement in the right arm due to her prior history of left upper extremity DVT. We will continue the majority of her home medications for hypertension, diabetes mellitus, hypothyroidism, and coronary artery disease. I reviewed her and her daughter's desire for her to be "DO NOT RESUSCITATE" status. We will provide further symptomatic, supportive, and diagnostic cares as the current workup, or changes in her clinical scenario indicate. 02/19/17 --Her sensitivity is still pending on the urine collected at time of admission. Will continue vanco and Rocephin based on the results of her OP culture. CM has checked into cost of Zyvox and daughter determined it is ramsye prohibitive so would like to continue IV vancomycin. --Labs and vitals are stable. 02/20/17 patient is being transferred to swing bed status for completion of the week to 10 days of vancomycin and IV Rocephin. As the patient had just failed oral treatment with Keflex the daughter has very little vickie and using oral medications at this time. Patient could be best served with her teen monitoring of vancomycin and corresponding renal function while getting IV infusions but the treatment course remains uncomplicated at this time. Time spent with patient: greater than 35 minutes Discharge Plan - Discharge Disposition Discharge Date: 02/20/17 Disposition: 61 To Any Swing Bed *Condition: Stable *Reason For Visit: urinary tract infection - Discharge Medications *Discharge Medications: New Acetaminophen [Tylenol] 325 - 650 mg PO Q5H PRN tablet PRN Reason: Discomfort Ceftriaxone [Rocephin] 1 g IV 1200 vial Vancomycin [Vancocin] 1,000 mg IV Q12H vial Ondansetron Inj [Zofran] 4 mg IVP Q6H PRN vial PRN Reason: Nausea &/Or Vomiting Continue Docusate Sodium [Colace] 100 mg PO DAILY #0 cap Amiodarone HCl 100 mg PO DAILY #0 Multivit-Min/FA/Lycopen/Lutein [Centrum Silver Tablet] 1 tab PO DAILY #0 Levothyroxine Sodium 50 mcg PO ACB #0 Sitagliptin Phos/Metformin HCl [Janumet 50-500 mg Tablet] 1 tab PO DAILY #0 Estradiol Vag Cream [Estrace Vag Cream] 1 applic VAGINAL HS tube Methenamine Hippurate [Hiprex] 1 gm PO DAILY Ascorbic Acid [Vitamin C with Kelli Hips] 500 mg PO DAILY Memantine HCl [Namenda Xr] 28 mg PO DAILY #0 cap Cyanocobalamin (Vitamin B-12) [Vitamin B-12] 1,000 mcg PO DAILY #30 tab Cranberry Fruit Extract [Cranberry] 500 mg PO BID #0 Aspirin 81 mg PO DAILY Clopidogrel [Plavix] 75 mg PO DAILY - Discharge Packet/Instructions *Diet: consistent carb *Activity: as eamon with assist *Pain Management/Treatment: n/a *Wound Care: n/a *Expected Signs/Symptoms: continued improvement *Notify Physician if: fever, pain *During Business Hours Contact: n/a *After Business Hours Contact: n/a *Pending Lab/Results: No Pending Lab - Referrals/Follow Up *Referrals/Follow Up: Colleen Caballero MD [Family Provider] - (f-u after swing bed dismissal) - Patient Handouts Patient Handouts: Urinary Tract Infection in Women (GEN) - Dismissal Complete Discharge Instructions are:: Complete
== END 2017-02-20 15:45 | disposition swing bed (61) | DRG 689 ==
LOC: ED 18:12 → MED 20:24
PROVIDERS: ADMIT Internal Medicine; ATTEND Family Medicine

== ENCOUNTER 2017-02-20 15:18 | Inpatient (IN) ==
[2017-02-20 16:24] VITALS: BMI 23.8
[2017-02-20] MEDS ORDERED: VANCOMYCIN - PHARMACY CONSULT MC ONE (16:43)
[2017-02-20] MEDS ORDERED: CEFTRIAXONE 1 G in NS 100 ML IV SCH (16:45)
[2017-02-20] MEDS ORDERED: ONDANSETRON 4 MG/2 ML INJECTION IVP PRN (16:54)
[2017-02-20] MEDS ORDERED: NS 1,000 ML IV SCH (17:00)
[2017-02-20] MEDS: MEMANTINE 10 MG TABLET PO SCH (21:07)
[2017-02-20] MEDS: ESTRADIOL 0.01% VAGINAL CREAM 42.5gm VAGINAL SCH (21:07)
[2017-02-21] MEDS: BISACODYL 10 MG SUPPOSITORY RECTALLY PRN (05:43)
[2017-02-21] MEDS: LEVOTHYROXINE 50 MCG TABLET PO SCH (05:43)
[2017-02-21] MEDS ORDERED: NON-FORMULARY MEDICATION 1 EACH EACH (Cyanocobalamin (Vitamin B-12) [Vitamin B-12] 1,000 M PO SCH (09:00)
[2017-02-21] MEDS ORDERED: METFORMIN HCL PO SCH (09:00)
[2017-02-21] MEDS ORDERED: [UNRECOGNIZED DRUG - OTHER] PO SCH (09:00)
[2017-02-21] MEDS ORDERED: SITAGLIPTIN PHOS PO SCH (09:00)
[2017-02-21] MEDS ORDERED: NON-FORMULARY MEDICATION 1 EACH EACH (Multivit-Min/Fa/Lycopen/Lutein [Centrum Silver Table PO SCH (09:00)
--- NOTE | 2017-02-21 09:15 | History & Physical Report ---
<Renee Broussard - Last Filed: 02/21/17 10:47> History of Present Illness Date: 02/21/17 HPI: Edel La is being admitted to swing bed status to complete IV abx for recurrent UTI. She failed outpatient therapy with Keflex. She was admitted on 02/17/17 for polymicrobial UTI with Enterococcus faecium & E. coli, and she was also markedly encephalopathic on admission. She was started on vanco and Rocephin. A PICC was placed and she was discharged from the acute care setting on 02/20/17. She will require 7-10 more days of abx prior to discharge home. Medically she remained stable, though remained confused and sleepy at times. When she was seen in the morning of 02/21/17, she was sleeping comfortably. She did not easily awaken and was unable to provide ROS or confirm HPI/PMH. Her nurse reported that she is typically A&O to self only and she has a hx of underlying dementia. Review of Systems ROS unobtainable: due to mental status PFSH Paroxysmal atrial fibrillation Atherosclerotic heart disease of [place] coronary artery without angina pectoris Nonrheumatic aortic valve stenosis Type 2 diabetes mellitus without complications Recurrent UTI Hypothyroid HTN Left UE DVT Medical History Updates: CAD with 2 stents this year: one in October, one on 01/24. Moderate to Severe Aortic Stenosis. Mild Dementia. LUE DVT. DM controlled on diet and [place]. 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 Hypothyroidism. Paroxysmal atrial fibrillation Surgical History: Cardiac caths. Lap briseyda. KEVIN. Right TKA. B/L cataracts. colonoscopies Family History: Father - CAD, TB Sister - colon cancer - Social History Smoking status: Never smoker Substance use type: does not use Alcohol intake frequency: does not drink Social history: PCP-Dr. Caballero Cardiology-Dr. Sage Garcia Medications Home Medications Medication Instructions Recorded Confirmed Type Docusate Sodium [Colace] 100 mg PO DAILY #0 cap 09/05/15 02/20/17 History Memantine HCl [Namenda Xr] 28 mg PO DAILY #0 cap 09/05/15 02/20/17 History Amiodarone HCl 100 mg PO DAILY #0 03/31/16 02/20/17 History Multivit-Min/FA/Lycopen/Lutein 1 tab PO DAILY #0 03/31/16 02/20/17 History [Centrum Silver Tablet] Levothyroxine Sodium 50 mcg PO ACB #0 06/29/16 02/20/17 History Sitagliptin Phos/Metformin HCl 1 tab PO DAILY #0 06/29/16 02/20/17 History [Janumet 50-500 mg Tablet] Cranberry Fruit Extract [Cranberry] 500 mg PO BID #0 08/13/16 02/20/17 History Cyanocobalamin (Vitamin B-12) 1,000 mcg PO DAILY #30 tab 08/13/16 02/20/17 History [Vitamin B-12] Aspirin 81 mg PO DAILY 10/14/16 02/20/17 History Clopidogrel [Plavix] 75 mg PO DAILY 11/14/16 02/20/17 History Ascorbic Acid [Vitamin C with Kelli 500 mg PO DAILY 02/17/17 02/20/17 History Hips] Methenamine Hippurate [Hiprex] 1 gm PO DAILY 02/17/17 02/20/17 History Allergies Allergy/AdvReac Type Severity Reaction Status Date / Time lisinopril Allergy Severe Airway Verified 02/17/17 18:32 Obstruction Exam Vital Signs: Temperature 97.5 F 02/21/17 07:47 Pulse Rate 72 02/21/17 07:47 Respiratory Rate 18 02/21/17 07:47 Blood Pressure 108/64 02/21/17 07:47 Pulse Oximetry 97 02/21/17 07:47 Height/Weight/BMI: Height 1.68 m Weight 66.8 kg Body Mass Index 23.8 - Constitutional Present: no acute distress, well nourished, well developed - Routine HEENT Exam Head: Present: normocephalic - Routine Neck Exam Present: supple - Routine Respiratory Exam Present: CTA bilaterally - Routine Cardiovascular Exam Present: RRR, S1, S2, murmur (4/6 systolic) - Routine Abdominal Exam Present: soft, normoactive bowel sounds, non distended - Routine Extremities Exam Present: no edema, pulses intact, normal capillary refill - Routine Skin Exam Present: intact, dry, warm - Routine Neurological Exam patient was sleeping comfortably; unable to assess CN - Routine Psychiatric Exam Present: unable to assess (at baseline alert & oriented to self) Assessment and Plan (1) Recurrent UTI Current visit: No Status: Acute Assessment and Plan: IMPRESSION Polymicrobial UTI (Enterococcus & E. coli), failed outpatient treatment Acute encephalopathy Paroxysmal atrial fibrillation Atherosclerotic heart disease of [place] coronary artery without angina pectoris Nonrheumatic aortic valve stenosis Type 2 diabetes mellitus without complications Recurrent UTI Hypothyroid HTN Left UE DVT PLAN Admit, swing bed status. Continue Rocephin & Vancomycin for polymicrobial UTI to complete a 10 day course (start date: late in the evening of 02/17/17). DC possible on 02/27/17. Continue meds for PAF and CAD - amiodarone, Plavix, ASA Monitor BGM and continue metformin, Januvia, and CC diet DC IVF; monitor I&O. DVT Prophylaxis: [facility] [place] [place] Summary Disclaimer: The visit summary below is not to be considered part of the above Progress Note. Hospital Course: 02/21/17 IMPRESSION Polymicrobial UTI (Enterococcus & E. coli), failed outpatient treatment Acute encephalopathy Paroxysmal atrial fibrillation Atherosclerotic heart disease of [place] coronary artery without angina pectoris Nonrheumatic aortic valve stenosis Type 2 diabetes mellitus without complications Recurrent UTI Hypothyroid HTN Left UE DVT PLAN Admit, swing bed status. Continue Rocephin & Vancomycin for polymicrobial UTI to complete a 10 day course (start date: late in the evening of 02/17/17). DC possible on 02/27/17. Continue meds for PAF and CAD - amiodarone, Plavix, ASA Monitor BGM and continue metformin, Januvia, and CC diet DC IVF; monitor I&O. <Domo Sheehan - Last Filed: 02/21/17 21:07> History of Present Illness Date: 02/21/17 [facility] Patient Stated Medical History Cerebrovascular Accident Yes: 5 YEARS AGO Dementia Yes Syncope Yes Other Cardiology Yes: SEVERE AORTIC STENOSIS, LEFT ARM BLOOD CLOT Diabetes Mellitus Type 2 Yes Other GI Yes: constipation Hx Incontinence Yes Hx Urinary Tract Infection Yes: frequent Clotting Problems Yes: l arm Osteoarthritis Yes Sepsis Yes Now No Clinic Medical History Syncope and collapse (Acute Medical) Paroxysmal atrial fibrillation (Chronic Medical) Atherosclerotic heart disease of [place] coronary artery without angina pectoris (Chronic Medical) Nonrheumatic aortic valve stenosis (Chronic Medical) Type 2 diabetes mellitus without complications (Chronic Medical) Metabolic encephalopathy (Resolved Medical) Recurrent UTI (Acute Medical) Acute cystitis without hematuria (Acute Medical) Hypothyroid (Acute Medical) HTN (hypertension) (Acute Medical) UTI (urinary tract infection) due to Enterococcus (Resolved Medical) Syncopal episodes (Acute Medical) Elevated troponin (Acute Medical) Urinary tract infection (Acute Medical) Exam Vital Signs: Temperature 97.6 F 02/21/17 16:00 Pulse Rate 67 02/21/17 16:00 Respiratory Rate 18 02/21/17 16:00 Blood Pressure 98/57 02/21/17 16:00 Pulse Oximetry 96 02/21/17 16:00 Height/Weight/BMI: Height 5 ft 6 in Weight 66.6 kg Body Mass Index 23.8 Assessment and Plan (1) Recurrent UTI Current visit: No Status: Acute Assessment and Plan: Seen and examined patient on same day as the above note. Agree with history, physical, assessment and plan. Comprehensive physical findings correlate to the above note. My appreciation to Renee Broussard for her assistance today. The patient was initially intended to receive a PICC or midline but patient had been doing so well on peripherals that this was delayed. Now that we lost peripheral line again this is being revisited. If a definitive line is unmanageable will place midline or PICC. Documented on Dragon speech to text. Efforts to correct speech recognition errors performed, but variation may exist Hospital Course Summary Disclaimer: The visit summary below is not to be considered part of the above Progress Note.
[2017-02-21] MEDS: METHENAMINE HIPPURATE 1 GM TABLET PO SCH (09:54)
[2017-02-21] MEDS: AMIODARONE 200 MG TABLET PO SCH (09:54)
[2017-02-21] MEDS: SITAGLIPTIN 100 MG TABLET PO SCH (09:54)
[2017-02-21] MEDS: CLOPIDOGREL 75 MG TABLET PO SCH (09:54)
[2017-02-21] MEDS: CYANOCOBALAMIN (B-12) 500mcg TABLET PO SCH (09:54)
[2017-02-21] MEDS: MEMANTINE 10 MG TABLET PO SCH ×2 (09:55→22:43)
[2017-02-21] MEDS: ASCORBIC ACID 500 MG TABLET PO SCH (09:55)
[2017-02-21] MEDS: METFORMIN 500 MG TABLET PO SCH (09:55)
[2017-02-21] MEDS: CEFTRIAXONE 1 G in NS 100 ML IV SCH (09:55)
[2017-02-21] MEDS: MULTI-VITAMIN + MINERAL TABLET PO SCH (09:55)
[2017-02-21] MEDS: ASPIRIN 81 MG CHEWABLE TABLET PO SCH (09:55)
[2017-02-21] MEDS ORDERED: CEFTRIAXONE 1 G in NS 100 ML IV SCH (12:00)
[2017-02-21] MEDS: ESTRADIOL 0.01% VAGINAL CREAM 42.5gm VAGINAL SCH (22:43)
[2017-02-22] MEDS: LEVOTHYROXINE 50 MCG TABLET PO SCH (05:39)
[2017-02-22] MEDS: CYANOCOBALAMIN (B-12) 500mcg TABLET PO SCH (10:15)
[2017-02-22] MEDS: METHENAMINE HIPPURATE 1 GM TABLET PO SCH (10:15)
[2017-02-22] MEDS: SITAGLIPTIN 100 MG TABLET PO SCH (10:15)
[2017-02-22] MEDS: AMIODARONE 200 MG TABLET PO SCH (10:17)
[2017-02-22] MEDS: CLOPIDOGREL 75 MG TABLET PO SCH (10:17)
[2017-02-22] MEDS: ASPIRIN 81 MG CHEWABLE TABLET PO SCH (10:17)
[2017-02-22] MEDS: MEMANTINE 10 MG TABLET PO SCH ×2 (10:18→21:33)
[2017-02-22] MEDS: METFORMIN 500 MG TABLET PO SCH (10:18)
[2017-02-22] MEDS: MULTI-VITAMIN + MINERAL TABLET PO SCH (10:19)
[2017-02-22] MEDS: CEFTRIAXONE 1 G in NS 100 ML IV SCH (10:19)
[2017-02-22] MEDS: ASCORBIC ACID 500 MG TABLET PO SCH (10:19)
[2017-02-22] MEDS: ACETAMINOPHEN 325 MG TABLET PO PRN (10:44)
--- NOTE | 2017-02-22 13:35 | Progress Note ---
- Date 02/22/17 Subjective: Edel La was admitted to swing bed [facility] to complete IV abx for recurrent UTI. She failed outpatient therapy with Keflex. She was admitted on 02/17/17 for polymicrobial UTI with Enterococcus faecium & E. coli, and she was also markedly encephalopathic on admission. She was started on vanco and Rocephin. A PICC was placed and she was discharged from the acute care setting on 02/20/17. She will require 7-10 more days of abx prior to discharge home. Medically she remained stable, though remains confused and sleepy. When she was seen in the morning of 02/21/17, she was sleeping comfortably. She did not easily awaken and was unable to provide ROS or confirm HPI/PMH. Her nurse reported that she is typically A&O to self only and she has a hx of underlying dementia. Today, she complains of being cold and sleepy. She is oriented to person only. She denies hurting anywhere. She denies SOA, palp, N/V. Lunch came when I was in the room and she reports she is not hungry. Objective Vital signs: Temperature 96.0 F L 02/22/17 08:00 Pulse Rate 83 02/22/17 08:00 Respiratory Rate 16 02/22/17 08:00 Blood Pressure 134/67 02/22/17 08:00 Pulse Oximetry 97 02/22/17 08:00 Height/Weight/BMI: Height 1.68 m Weight 66.6 kg Body Mass Index 23.8 Comments: Gen: alert to person only. NAD Skin: warm and dry HEENT: NC/AT PERRL, EOMI, Sclera, lids and conjunctiva wnl. MMM. OP clear. Neck: No JVD, Murmur radiates slightly to carotids. Lungs: clear. No rales, rhonchi or wheezes CV: regular. 3/6 DARIN Abd: soft. +BS. NT/ND MS: No edema. Neuro: No focal deficits Results - Labs CBC & Chem 7: 02/22/17 04:50 02/22/17 04:50 Assessment and Plan (1) Recurrent UTI Current visit: No Status: Acute Assessment and Plan: 1. Recurrent UTI -On extended antibiotics for E.Coli and Enterococcus faecium -Rocephin and vanco until 02/27/2017 2. Dementia -worsened by UTI -Namenda 3. DM -On metformin and Januvia 4. CAD -s/p stent to LAD 01/24/2017, RCA in September 2016 -ASA, plavix -No statin as far as I can tell 5. Hypothyroid -On supplements -TSH fine here 6. Severe aortic stenosis -Medical management -Dr. Garcia is her operating room specialist 7. PAF -On amiodarone -No OAC -[id number] 8. Prophylaxis -Lovenox Hospital Course Summary Disclaimer: The visit summary below is not to be considered part of the above Progress Note. Hospital Course: 02/21/17 IMPRESSION Polymicrobial UTI (Enterococcus & E. coli), failed outpatient treatment Acute encephalopathy Paroxysmal atrial fibrillation Atherosclerotic heart disease of [place] coronary artery without angina pectoris Nonrheumatic aortic valve stenosis Type 2 diabetes mellitus without complications Recurrent UTI Hypothyroid HTN Left UE DVT PLAN Admit, swing bed status. Continue Rocephin & Vancomycin for polymicrobial UTI to complete a 10 day course (start date: late in the evening of 02/17/17). DC possible on 02/27/17. Continue meds for PAF and CAD - amiodarone, Plavix, ASA Monitor BGM and continue metformin, Januvia, and CC diet DC IVF; monitor I&O.
[2017-02-22] MEDS: ENOXAPARIN 40 MG/0.4 ML INJECTION SQ SCH (16:11)
[2017-02-22] MEDS: ESTRADIOL 0.01% VAGINAL CREAM 42.5gm VAGINAL SCH (21:34)
[2017-02-23] MEDS: LEVOTHYROXINE 50 MCG TABLET PO SCH (05:35)
[2017-02-23] MEDS: SITAGLIPTIN 100 MG TABLET PO SCH (09:20)
[2017-02-23] MEDS: ENOXAPARIN 40 MG/0.4 ML INJECTION SQ SCH (09:20)
[2017-02-23] MEDS: ASPIRIN 81 MG CHEWABLE TABLET PO SCH (09:20)
[2017-02-23] MEDS: CLOPIDOGREL 75 MG TABLET PO SCH (09:21)
[2017-02-23] MEDS: METFORMIN 500 MG TABLET PO SCH (09:21)
[2017-02-23] MEDS: AMIODARONE 200 MG TABLET PO SCH (09:21)
[2017-02-23] MEDS: MEMANTINE 10 MG TABLET PO SCH ×2 (09:21→21:27)
[2017-02-23] MEDS: CYANOCOBALAMIN (B-12) 500mcg TABLET PO SCH (09:21)
[2017-02-23] MEDS: ASCORBIC ACID 500 MG TABLET PO SCH (09:21)
[2017-02-23] MEDS: METHENAMINE HIPPURATE 1 GM TABLET PO SCH (09:21)
[2017-02-23] MEDS: MULTI-VITAMIN + MINERAL TABLET PO SCH (09:21)
[2017-02-23] MEDS: CEFTRIAXONE 1 G in NS 100 ML IV SCH (09:22)
--- NOTE | 2017-02-23 14:12 | Progress Note ---
- Date 02/23/17 Subjective: Edel La was admitted to swing bed [facility] to complete IV abx for recurrent UTI. She failed outpatient therapy with Keflex. She was admitted on 02/17/17 for polymicrobial UTI with Enterococcus faecium & E. coli, and she was also markedly encephalopathic on admission. She was started on vanco and Rocephin. A PICC was placed and she was discharged from the acute care setting on 02/20/17. She will require 7-10 more days of abx prior to discharge home. Medically she remained stable, though remains confused and sleepy. When she was seen in the morning of 02/21/17, she was sleeping comfortably. She did not easily awaken and was unable to provide ROS or confirm HPI/PMH. Her nurse reported that she is typically A&O to self only and she has a hx of underlying dementia. Today, she is up in the chair. Her daughter is bedside. Her daughter tells me that pt is still confused and that this is not her baseline. She usually lives at home with her daughter and is independent at home while daughter is working. I did explain that some of this could just her being in an unfamiliar environment. As the UTI is treated and she gets back to her normal environment this may resolve. In addition, the daughter is concerned because the pt is not getting up and walking. I did put in an order for PT. She is awake and alert today. She is eating fairly well. She is oriented to person only. She does not remember anything from yesterday. She denies hurting anywhere. She denies SOA, palp, N/V. Objective Vital signs: Temperature 98.4 F 02/23/17 08:44 Pulse Rate 73 02/23/17 08:00 Respiratory Rate 16 02/23/17 08:00 Blood Pressure 117/63 02/23/17 08:00 Pulse Oximetry 97 02/23/17 08:00 Height/Weight/BMI: Height 1.68 m Weight 66.3 kg Body Mass Index 23.8 Comments: Gen: alert to person only. Pleasant, NAD Skin: warm and dry HEENT: NC/AT PERRL, EOMI, Sclera, lids and conjunctiva wnl. MMM. OP clear. Neck: No JVD, Murmur radiates slightly to carotids. Lungs: clear. No rales, rhonchi or wheezes CV: regular. 3/6 DARIN Abd: soft. +BS. NT/ND MS: No edema. Neuro: No focal deficits Results - Labs CBC & Chem 7: 02/23/17 05:00 02/23/17 05:00 Microbiology Results: Laboratory Results - last 48 hr 02/21/17 02/21/17 02/21/17 11:34 15:45 21:48 WBC RBC Hgb Hct MCV MCH MCHC RDW Std Deviation Plt Count MPV Immature Gran % (Auto) Neut % (Auto) Lymph % (Auto) [place] % (Auto) Eos % (Auto) Baso % (Auto) Neut # (Auto) Lymph # (Auto) [place] # (Auto) Eos # (Auto) Baso # (Auto) Abs Immat Gran (auto) Turbidity Sodium Potassium Chloride Carbon Dioxide Anion Gap BUN Creatinine GFR Calculation BUN/Creatinine Ratio Glucose Glucometer 115 164 113 Calculated Osmolality Calcium Magnesium Icterus Index Specimen Hemolysis 02/22/17 02/22/17 02/22/17 04:50 04:50 05:50 WBC 7.2 RBC 3.65 L Hgb 11.4 L Hct 35.5 L MCV 97.3 MCH 31.2 MCHC 32.1 RDW Std Deviation 45.5 Plt Count 156 MPV 9.2 L Immature Gran % (Auto) 0.1 Neut % (Auto) 67.6 H Lymph % (Auto) 18.6 L [place] % (Auto) 9.2 H Eos % (Auto) 3.8 Baso % (Auto) 0.7 Neut # (Auto) 4.9 Lymph # (Auto) 1.3 [place] # (Auto) 0.7 Eos # (Auto) 0.3 Baso # (Auto) 0.1 Abs Immat Gran (auto) 0.01 Turbidity < 20 Sodium 140 Potassium 3.5 L Chloride 113 H Carbon Dioxide 23 Anion Gap 4 L BUN 12.0 Creatinine 0.7 GFR Calculation 79 BUN/Creatinine Ratio 17 Glucose 100 Glucometer 97 Calculated Osmolality 269 Calcium 8.3 L Magnesium Icterus Index < 2 Specimen Hemolysis 27 H 02/22/17 02/22/17 02/22/17 11:06 15:18 21:56 WBC RBC Hgb Hct MCV MCH MCHC RDW Std Deviation Plt Count MPV Immature Gran % (Auto) Neut % (Auto) Lymph % (Auto) [place] % (Auto) Eos % (Auto) Baso % (Auto) Neut # (Auto) Lymph # (Auto) [place] # (Auto) Eos # (Auto) Baso # (Auto) Abs Immat Gran (auto) Turbidity Sodium Potassium Chloride Carbon Dioxide Anion Gap BUN Creatinine GFR Calculation BUN/Creatinine Ratio Glucose Glucometer 159 91 126 Calculated Osmolality Calcium Magnesium Icterus Index Specimen Hemolysis 02/23/17 02/23/17 02/23/17 05:00 05:00 05:43 WBC 6.3 RBC 3.57 L Hgb 11.0 L Hct 34.2 L MCV 95.8 MCH 30.8 MCHC 32.2 RDW Std Deviation 44.2 Plt Count 161 MPV 9.1 L Immature Gran % (Auto) 0.2 Neut % (Auto) 63.8 Lymph % (Auto) 21.9 L [place] % (Auto) 9.5 H Eos % (Auto) 4.1 H Baso % (Auto) 0.5 Neut # (Auto) 4.0 Lymph # (Auto) 1.4 [place] # (Auto) 0.6 Eos # (Auto) 0.3 Baso # (Auto) 0.0 Abs Immat Gran (auto) 0.01 Turbidity < 20 Sodium 142 Potassium 3.3 L Chloride 111 H Carbon Dioxide 25 Anion Gap 6 BUN 11.0 Creatinine 0.8 GFR Calculation 68 BUN/Creatinine Ratio 14 Glucose 92 Glucometer 91 Calculated Osmolality 272 Calcium 8.3 L Magnesium 1.8 Icterus Index < 2 Specimen Hemolysis < 15 02/23/17 11:16 WBC RBC Hgb Hct MCV MCH MCHC RDW Std Deviation Plt Count MPV Immature Gran % (Auto) Neut % (Auto) Lymph % (Auto) [place] % (Auto) Eos % (Auto) Baso % (Auto) Neut # (Auto) Lymph # (Auto) [place] # (Auto) Eos # (Auto) Baso # (Auto) Abs Immat Gran (auto) Turbidity Sodium Potassium Chloride Carbon Dioxide Anion Gap BUN Creatinine GFR Calculation BUN/Creatinine Ratio Glucose Glucometer 117 Calculated Osmolality Calcium Magnesium Icterus Index Specimen Hemolysis Assessment and Plan (1) Recurrent UTI Current visit: No Status: Acute Assessment and Plan: 1. Recurrent UTI -On extended antibiotics for E.Coli and Enterococcus faecium -Rocephin and vanco until 02/27/2017 2. Dementia -worsened by UTI -Namenda 3. DM -On metformin and Januvia 4. CAD -s/p stent to LAD 01/24/2017, RCA in September 2016 -ASA, plavix -No statin as far as I can tell 5. Hypothyroid -On supplements -TSH fine here 6. Severe aortic stenosis -Medical management -Dr. Garcia is her cement block maker 7. PAF -On amiodarone -No OAC -[id number] 8. [facility] Hospital Course Summary Disclaimer: The visit summary below is not to be considered part of the above Progress Note. Hospital Course: 02/21/17 IMPRESSION Polymicrobial UTI (Enterococcus & E. coli), failed outpatient treatment Acute encephalopathy Paroxysmal atrial fibrillation Atherosclerotic heart disease of [place] coronary artery without angina pectoris Nonrheumatic aortic valve stenosis Type 2 diabetes mellitus without complications Recurrent UTI Hypothyroid HTN Left UE DVT PLAN Admit, swing bed status. Continue Rocephin & Vancomycin for polymicrobial UTI to complete a 10 day course (start date: late in the evening of 02/17/17). DC possible on 02/27/17. Continue meds for PAF and CAD - amiodarone, Plavix, ASA Monitor BGM and continue metformin, Januvia, and CC diet DC IVF; monitor I&O.
[2017-02-23] MEDS: ESTRADIOL 0.01% VAGINAL CREAM 42.5gm VAGINAL SCH (21:28)
[2017-02-24] MEDS: LEVOTHYROXINE 50 MCG TABLET PO SCH (06:05)
[2017-02-24] MEDS: CEFTRIAXONE 1 G in NS 100 ML IV SCH (08:45)
[2017-02-24] MEDS: ENOXAPARIN 40 MG/0.4 ML INJECTION SQ SCH (08:45)
[2017-02-24] MEDS: METHENAMINE HIPPURATE 1 GM TABLET PO SCH (08:46)
[2017-02-24] MEDS: CLOPIDOGREL 75 MG TABLET PO SCH (08:46)
[2017-02-24] MEDS: AMIODARONE 200 MG TABLET PO SCH (08:47)
[2017-02-24] MEDS: CYANOCOBALAMIN (B-12) 500mcg TABLET PO SCH (08:49)
[2017-02-24] MEDS: ASCORBIC ACID 500 MG TABLET PO SCH (08:50)
[2017-02-24] MEDS: MEMANTINE 10 MG TABLET PO SCH ×2 (08:51→20:56)
[2017-02-24] MEDS: METFORMIN 500 MG TABLET PO SCH (08:51)
[2017-02-24] MEDS: MULTI-VITAMIN + MINERAL TABLET PO SCH (08:52)
[2017-02-24] MEDS: SITAGLIPTIN 100 MG TABLET PO SCH (08:52)
[2017-02-24] MEDS: ASPIRIN 81 MG CHEWABLE TABLET PO SCH (08:53)
--- NOTE | 2017-02-24 11:45 | Pharmacy Consult-Antibiotics ---
Pharmacy Consult-Vancomycin - Laboratory Information WBC 6.3 T/MM3 (4.5-11.0) 02/23/17 05:00 BUN 16.0 MG/DL (7-17) 02/24/17 03:50 Creatinine 0.8 MG/DL (0.7-1.2) 02/24/17 03:50 Vancomycin Trough 22.96 UG/ML (15-20) H* 02/24/17 03:50 - Consult Information VANCOMYCIN CONSULT: Vancomycin Trough = 22.96 mcg/ml. Today's SCr = 0.8 mg/dl. Will give Vancomycin 750 mg IV q12hrs. Will continue to monitor and make adjustments accordingly. Thank you.
--- NOTE | 2017-02-24 13:48 | Progress Note ---
<Maria C Garg - Last Filed: 02/24/17 13:42> - Date 02/24/17 Subjective: Patient is seen sitting up in her chair following therapy. She has no complaints other that some back pain. She is able to tell me she is at [facility] [place] and her daughter's name is Mariajose. She denies CP, SOA, abdominal pain or urinary sxs. Objective Vital signs: Temperature 97.8 F 02/24/17 07:00 Pulse Rate 79 02/24/17 07:00 Respiratory Rate 14 02/24/17 07:00 Blood Pressure 118/65 02/24/17 07:00 Pulse Oximetry 94 02/24/17 07:00 Height/Weight/BMI: Height 1.68 m Weight 67.6 kg Body Mass Index 23.8 - Constitutional Present: no acute distress, well nourished, well developed - Routine Respiratory Exam Present: CTA bilaterally. Absent: wheezes - Routine Cardiovascular Exam Present: RRR, murmur (Gr 4/6) - Routine Abdominal Exam Present: soft, normoactive bowel sounds, non distended. Absent: tenderness - Routine Extremities Exam Present: no edema, normal capillary refill - Routine Skin Exam Present: dry, warm - Routine Neurological Exam Present: alert oriented to self and place - Routine Lymphatic Exam Lymphatic: Absent: adenopathy - Routine Psychiatric Exam Present: normal affect, cooperative Results - Labs CBC & Chem 7: 02/23/17 05:00 02/24/17 03:50 Microbiology Results: Microbiology 02/17/17 19:47 Urine, Cath Straight Urine Culture - Final Escherichia coli Enterococcus faecium (grp d) Assessment and Plan (1) Recurrent UTI Current visit: No Status: Acute Assessment and Plan: IMPRESSION Polymicrobial UTI (Enterococcus & E. coli), failed outpatient treatment Acute encephalopathy Paroxysmal atrial fibrillation Atherosclerotic heart disease of [place] coronary artery without angina pectoris Nonrheumatic aortic valve stenosis Type 2 diabetes mellitus without complications Recurrent UTI Hypothyroid HTN H/o Left UE DVT Plan: On extended antibiotics for E.Coli and Enterococcus faecium in urine. Continue Rocephin and vanco until 02/27/2017 Vitals and labs are stable. Hospital Course Summary Disclaimer: The visit summary below is not to be considered part of the above Progress Note. Hospital Course: IMPRESSION Polymicrobial UTI (Enterococcus & E. coli), failed outpatient treatment Acute encephalopathy Paroxysmal atrial fibrillation Atherosclerotic heart disease of [place] coronary artery without angina pectoris Nonrheumatic aortic valve stenosis Type 2 diabetes mellitus without complications Recurrent UTI Hypothyroid HTN H/o Left UE DVT 02/21/17 Admit, swing bed status. Continue Rocephin & Vancomycin for polymicrobial UTI to complete a 10 day course (start date: late in the evening of 02/17/17). DC possible on 02/27/17. Continue meds for PAF and CAD - amiodarone, Plavix, ASA Monitor BGM and continue metformin, Januvia, and CC diet DC IVF; monitor I&O. 02/22/17 1. Recurrent UTI -On extended antibiotics for E.Coli and Enterococcus faecium -Rocephin and vanco until 02/27/2017 2. Dementia -worsened by UTI -Namenda 3. DM -On metformin and Januvia 4. CAD -s/p stent to LAD 01/24/2017, RCA in September 2016 -ASA, plavix -No statin as far as I can tell 5. Hypothyroid -On supplements -TSH fine here 6. Severe aortic stenosis -Medical management -Dr. Garcia is her plug overwrap machine tender 7. PAF -On amiodarone -No OAC -[id number] 8. Prophylaxis -Lovenox 02/23/17 No changes. Continue atbx. 02/24/17 On extended antibiotics for E.Coli and Enterococcus faecium in urine. Continue Rocephin and vanco until 02/27/2017 Vitals and labs are stable. <Amara Perez L - Last Filed: 02/24/17 18:11> - Date 02/24/17 Objective Vital signs: Temperature 97.3 F 02/24/17 15:43 Pulse Rate 78 02/24/17 15:43 Respiratory Rate 14 02/24/17 15:43 Blood Pressure 106/60 02/24/17 15:43 Pulse Oximetry 92 02/24/17 15:43 Height/Weight/BMI: Height 1.68 m Weight 67.6 kg Body Mass Index 23.8 Results - Labs CBC & Chem 7: 02/23/17 05:00 02/24/17 03:50 Assessment and Plan (1) Recurrent UTI Current visit: No Status: Acute (2) Acute cystitis without hematuria Current visit: No Status: Acute Assessment and Plan: 02/24/2017-I reviewed this chart, the patient history, and the INVESTIGATIONS MANAGER's/PA's documented findings as above. We discussed and formulated the assessment and plan as above with the additions below.-Dr. Perez Patient was seen this evening accompanied by her nurse. The patient denies any complaints other than feeling hungry and ready to eat. She denies any pain. She does feel cold. On exam she is alert and pleasant. She does have dementia. Chest is clear to auscultation anteriorly. Cardiovascular reveals a regular rate and rhythm with a 3/6 systolic murmur. Abdomen is soft and nontender. Extremities are free of edema. Overall, the patient appears to be improving on Rocephin and vancomycin for UTI. Consult PT and OT for strengthening. Plan is for dismissal back to home with 24- hour care. Discussed with the patient's nurse. Hospital Course Summary Disclaimer: The visit summary below is not to be considered part of the above Progress Note.
[2017-02-24] MEDS: NS FLUSH BAG 500ml IV PRN (16:32)
[2017-02-24] MEDS: ESTRADIOL 0.01% VAGINAL CREAM 42.5gm VAGINAL SCH (22:07)
[2017-02-25] MEDS: SALINE FLUSH 10ml SYRINGE IV PRN ×4 (03:07→20:37)
[2017-02-25] MEDS: LEVOTHYROXINE 50 MCG TABLET PO SCH (06:04)
[2017-02-25] MEDS: SITAGLIPTIN 100 MG TABLET PO SCH (08:44)
[2017-02-25] MEDS: AMIODARONE 200 MG TABLET PO SCH (08:44)
[2017-02-25] MEDS: CYANOCOBALAMIN (B-12) 500mcg TABLET PO SCH (08:45)
[2017-02-25] MEDS: MULTI-VITAMIN + MINERAL TABLET PO SCH (08:45)
[2017-02-25] MEDS: METFORMIN 500 MG TABLET PO SCH (08:45)
[2017-02-25] MEDS: METHENAMINE HIPPURATE 1 GM TABLET PO SCH (08:45)
[2017-02-25] MEDS: MEMANTINE 10 MG TABLET PO SCH ×2 (08:45→20:27)
[2017-02-25] MEDS: CLOPIDOGREL 75 MG TABLET PO SCH (08:45)
[2017-02-25] MEDS: ASCORBIC ACID 500 MG TABLET PO SCH (08:45)
[2017-02-25] MEDS: ASPIRIN 81 MG CHEWABLE TABLET PO SCH (08:45)
[2017-02-25] MEDS: CEFTRIAXONE 1 G in NS 100 ML IV SCH (08:46)
[2017-02-25] MEDS: ENOXAPARIN 40 MG/0.4 ML INJECTION SQ SCH (08:46)
[2017-02-25] MEDS: ACETAMINOPHEN 325 MG TABLET PO PRN ×2 (10:52→20:25)
--- NOTE | 2017-02-25 11:26 | Operative Note ---
DATE OF OPERATION 02/25/2017 PREOPERATIVE DIAGNOSES 1. Chronic constipation. 2. Desire for screening for colon and rectal carcinoma. POSTOPERATIVE DIAGNOSES 1. Chronic constipation. 2. Desire for screening for colon and rectal carcinoma. OPERATION Total colonoscopy SURGEON Ollie Durán MD ANESTHESIA TIVA ASA CLASS 1 FINDINGS There were no colon or rectal tumors. There were no colon or rectal polyps. There were no colonic angiodysplasia lesions. There was no melanosis coli. There was no inflammatory bowel disease. There was no colonic diverticulosis. Findings were normal throughout the colon and rectum. DESCRIPTION OF OPERATION The patient was brought to the endoscopy room. The patient was placed on a cart in the endoscopy room. The patient was placed in left lateral recumbent position on a cart in the endoscopy room. The patient was premedicated with intravenous sedation medication administered by the nurse time study technologist. The Olympus colonoscope was used. The colonoscope was introduced into the rectum. The colonoscope was advanced up through the rectum and colon all the way up to the cecum. The appendiceal orifice was visualized. The ileocecal valve was visualized. Light was seen transilluminating from the tip of the colonoscope through the wall of the abdomen at the right inguinal area. The colonoscope was then withdrawn out through the colon and rectum and removed from the patient. Digital rectal examination was performed. Findings throughout the procedure were as described above. The patient did continue to receive intravenous sedation medication administered by the nurse time study technologist throughout the operation. The patient did tolerate the operation well. RECOMMENDATION Followup colonoscopy again in 10 years. MTDD
--- NOTE | 2017-02-25 18:13 | Progress Note ---
- Date 02/25/17 Subjective: The patient was seen this morning in her room. She denies any pain other than some mild posterior headache. She is sleeping frequently. She is eating okay when family is here to help feed her. Per her nurse, and often takes 2 hours for her to eat a meal. Objective Vital signs: Temperature 96.3 F L 02/25/17 15:09 Pulse Rate 99 02/25/17 15:09 Respiratory Rate 16 02/25/17 15:09 Blood Pressure 99/61 02/25/17 15:09 Pulse Oximetry 96 02/25/17 15:09 Height/Weight/BMI: Height 1.68 m Weight 66.9 kg Body Mass Index 23.8 Comments: GEN-alert, pleasantly confused, no acute distress HEENT-sclera anicteric, oropharynx is moist, no bruising or tenderness/swelling of the occipital area where the patient complains of pain NECK-supple CV-regular rate and rhythm with occasional ectopic beat CHEST-clear to auscultation bilaterally ABD-soft, nontender with positive bowel sounds -no Ramirez EXT-no edema NEURO-no focal deficits, does have dementia SKIN-warm and dry and without rashes Results - Labs CBC & Chem 7: 02/23/17 05:00 02/24/17 03:50 Assessment and Plan (1) Recurrent UTI Current visit: No Status: Acute (2) Acute cystitis without hematuria Current visit: No Status: Acute Assessment and Plan: 02/25/2017 Impression Polymicrobial UTI (Enterococcus & E. coli), failed outpatient treatment Acute encephalopathy Paroxysmal atrial fibrillation Atherosclerotic heart disease of [place] coronary artery without angina pectoris Nonrheumatic aortic valve stenosis Type 2 diabetes mellitus without complications Recurrent UTI Hypothyroid HTN H/o Left UE DVT Plan Continue Rocephin and vancomycin through 02/27/2017 for Escherichia coli and enterococcus faecium UTI Continue aspirin and Plavix for coronary artery disease Continue Lovenox for DVT prophylaxis Blood sugars are well controlled on current treatment Discussed with case management today. Plan is for home with 24-hour care on 12/2016 Hospital Course Summary Disclaimer: The visit summary below is not to be considered part of the above Progress Note. Hospital Course: IMPRESSION Polymicrobial UTI (Enterococcus & E. coli), failed outpatient treatment Acute encephalopathy Paroxysmal atrial fibrillation Atherosclerotic heart disease of [place] coronary artery without angina pectoris Nonrheumatic aortic valve stenosis Type 2 diabetes mellitus without complications Recurrent UTI Hypothyroid HTN H/o Left UE DVT 02/21/17 Admit, swing bed status. Continue Rocephin & Vancomycin for polymicrobial UTI to complete a 10 day course (start date: late in the evening of 02/17/17). DC possible on 02/27/17. Continue meds for PAF and CAD - amiodarone, Plavix, ASA Monitor BGM and continue metformin, Januvia, and CC diet DC IVF; monitor I&O. 02/22/17 1. Recurrent UTI -On extended antibiotics for E.Coli and Enterococcus faecium -Rocephin and vanco until 02/27/2017 2. Dementia -worsened by UTI -Namenda 3. DM -On metformin and Januvia 4. CAD -s/p stent to LAD 01/24/2017, RCA in September 2016 -ASA, plavix -No statin as far as I can tell 5. Hypothyroid -On supplements -TSH fine here 6. Severe aortic stenosis -Medical management -Dr. Garcia is her metal machine operator 7. PAF -On amiodarone -No OAC -[id number] 8. Prophylaxis -Lovenox 02/23/17 No changes. Continue atbx. 02/24/17 On extended antibiotics for E.Coli and Enterococcus faecium in urine. Continue Rocephin and vanco until 02/27/2017 Vitals and labs are stable.
[2017-02-25] MEDS: ESTRADIOL 0.01% VAGINAL CREAM 42.5gm VAGINAL SCH (20:28)
[2017-02-25] MEDS: BISACODYL 10 MG SUPPOSITORY RECTALLY PRN (20:28)
[2017-02-26] MEDS: LEVOTHYROXINE 50 MCG TABLET PO SCH (06:35)
[2017-02-26] MEDS: CEFTRIAXONE 1 G in NS 100 ML IV SCH (09:28)
[2017-02-26] MEDS: CYANOCOBALAMIN (B-12) 500mcg TABLET PO SCH (09:29)
[2017-02-26] MEDS: MEMANTINE 10 MG TABLET PO SCH ×2 (09:29→20:27)
[2017-02-26] MEDS: ASCORBIC ACID 500 MG TABLET PO SCH (09:29)
[2017-02-26] MEDS: ENOXAPARIN 40 MG/0.4 ML INJECTION SQ SCH (09:29)
[2017-02-26] MEDS: METFORMIN 500 MG TABLET PO SCH (09:30)
[2017-02-26] MEDS: ASPIRIN 81 MG CHEWABLE TABLET PO SCH (09:30)
[2017-02-26] MEDS: AMIODARONE 200 MG TABLET PO SCH (09:30)
[2017-02-26] MEDS: MULTI-VITAMIN + MINERAL TABLET PO SCH (09:31)
[2017-02-26] MEDS: METHENAMINE HIPPURATE 1 GM TABLET PO SCH (09:31)
[2017-02-26] MEDS: CLOPIDOGREL 75 MG TABLET PO SCH (09:31)
[2017-02-26] MEDS: SITAGLIPTIN 100 MG TABLET PO SCH (09:31)
[2017-02-26] MEDS: ACETAMINOPHEN 325 MG TABLET PO PRN (12:29)
[2017-02-26] MEDS ORDERED: POLYETHYL GLYCOL 3350 17gm PACKET PO SCH (14:45)
--- NOTE | 2017-02-26 15:11 | Progress Note ---
- Date 02/26/17 Subjective: I did come and see the patient twice today. When I saw her before lunch, her daughter was not present. The patient was sitting up in the chair and her only complaint was of "pain all over". She could not be more specific on where she was having pain. She stated she was hungry for lunch. She had no other complaints. I came back to see the patient earlier this afternoon when the patient's daughter Mariajose was present. Mariajose states her mother has never been quite back to normal since she was hospitalized one month ago and underwent heart catheterization. She states that she was confused at that time and lethargic and was found to have a UTI. She states that she did get a little bit better for a while but never returned to baseline. She states since she's been hospitalized here she has had a day or 2 where she was closer to baseline but now she is as confused as she was at the time of admission. Mariajose also states that her mother has complained of back pain and has complained of this in the past when she has a UTI. She also states that her mother had not had a bowel movement for several days and received a suppository last night and then had a bowel movement. She states her mother is frequently been constipated and she has been using Colace at home with out effect. Currently, the patient does complain of low back pain and points to her right low back and mid low back. She denies any headache, chest pain or abdominal pain. She is oriented to self and Farmer. She brings up a story several times during my visit about soldiers that were here in [place] that picked her up. She also describes some falls she had at home which her daughter state were several years ago. Her daughter states this is not normal for her to be this confused. Objective Vital signs: Temperature 96.9 F 02/26/17 07:34 Pulse Rate 68 02/26/17 07:34 Respiratory Rate 16 02/26/17 07:34 Blood Pressure 90/54 02/26/17 07:34 Pulse Oximetry 96 02/26/17 07:34 Height/Weight/BMI: Height 1.68 m Weight 66 kg Body Mass Index 23.8 Comments: Vitals this morning Afebrile, pulse 68, respirations 16, blood pressure 90/54, O2 sat 96% on room air Repeat vitals this afternoon temperature 96.5 orally, pulse 76, respirations 18 , blood pressure 112/65, O2 sat 96% on room air GEN-alert, confused, no acute distress HEENT-sclera anicteric, pupils are equal, oropharynx is moist NECK-supple CV-regular rate and rhythm, 3/6 systolic murmur CHEST-clear to auscultation ABD-soft, nontender, nondistended with positive bowel sounds Back-skin over the low back appears normal. No bruising. No specific tenderness to palpation over the right low back or mid low back -no Ramirez EXT-no edema NEURO-confused (not at baseline per patient's daughter), cranial nerves II through XII grossly intact, motor strength equal in the upper and lower extremities SKIN-warm and dry and without rashes Results - Labs CBC & Chem 7: 02/26/17 08:23 02/26/17 08:23 Labs: Blood sugars show good control ranging from 91-155 Liver enzymes are normal Assessment and Plan (1) Recurrent UTI Current visit: No Status: Acute (2) Acute cystitis without hematuria Current visit: No Status: Acute Assessment and Plan: 02/26/2017 Impression Polymicrobial UTI (Enterococcus & E. coli), failed outpatient treatment Acute encephalopathy-not improved per patient's daughter. She's been below baseline for the past 1 month, but worsened in the past 1 week Dementia Paroxysmal atrial fibrillation Atherosclerotic heart disease of [place] coronary artery without angina pectoris Nonrheumatic aortic valve stenosis-severe (sees Dr. Vanessa) Type 2 diabetes mellitus without complications Hypothyroid HTN H/o Left UE DVT Chronic constipation Plan The cause of the patient's continued encephalopathy is not known. If her confusion were secondary to her UTI, one would expect this to have improved after receiving appropriate antibiotics for the past week. Liver panel was obtained and was normal. Other possible causes of her encephalopathy include chronic pain, unresolved UTI, confusion secondary to being out of her normal environment since she does have underlying dementia. She is not receiving any medications that would typically cause confusion or sedation. She has been on Namenda for several years. Blood sugars have been stable. She does not appear to have an active infection with normal white count, normal differential, and no fevers. She slept well last night per her nurse. B 12, folate, TSH were all normal in late October of this year. Will start scheduled Tylenol and see if this helps with her back pain. We'll check a KUB to look for continued constipation as a possible cause of discomfort. Her encephalopathy has been waxing and waning for the past 1 month since she was admitted with a syncopal event and elevated troponin and underwent heart catheterization and stent placement. It's possible she had prolonged hypoxia or hypotension at that time contributing to her worsening confusion. Greater than 45 minutes of time spent seeing and evaluating the patient, talking with the patient's daughter, talking with case management, in reviewing history. Hospital Course Summary Disclaimer: The visit summary below is not to be considered part of the above Progress Note. Hospital Course: IMPRESSION Polymicrobial UTI (Enterococcus & E. coli), failed outpatient treatment Acute encephalopathy Paroxysmal atrial fibrillation Atherosclerotic heart disease of [place] coronary artery without angina pectoris Nonrheumatic aortic valve stenosis Type 2 diabetes mellitus without complications Recurrent UTI Hypothyroid HTN H/o Left UE DVT 02/21/17 Admit, swing bed status. Continue Rocephin & Vancomycin for polymicrobial UTI to complete a 10 day course (start date: late in the evening of 02/17/17). DC possible on 02/27/17. Continue meds for PAF and CAD - amiodarone, Plavix, ASA Monitor BGM and continue metformin, Januvia, and CC diet DC IVF; monitor I&O. 02/22/17 1. Recurrent UTI -On extended antibiotics for E.Coli and Enterococcus faecium -Rocephin and vanco until 02/27/2017 2. Dementia -worsened by UTI -Namenda 3. DM -On metformin and Januvia 4. CAD -s/p stent to LAD 01/24/2017, RCA in September 2016 -ASA, plavix -No statin as far as I can tell 5. Hypothyroid -On supplements -TSH fine here 6. Severe aortic stenosis -Medical management -Dr. Garcia is her makeup sales advisor 7. PAF -On amiodarone -No OAC -[id number] 8. Prophylaxis -Lovenox 02/23/17 No changes. Continue atbx. 02/24/17 On extended antibiotics for E.Coli and Enterococcus faecium in urine. Continue Rocephin and vanco until 02/27/2017 Vitals and labs are stable. 02/25/2017 Impression Polymicrobial UTI (Enterococcus & E. coli), failed outpatient treatment Acute encephalopathy Paroxysmal atrial fibrillation Atherosclerotic heart disease of [place] coronary artery without angina pectoris Nonrheumatic aortic valve stenosis Type 2 diabetes mellitus without complications Recurrent UTI Hypothyroid HTN H/o Left UE DVT Plan Continue Rocephin and vancomycin through 02/27/2017 for Escherichia coli and enterococcus faecium UTI Continue aspirin and Plavix for coronary artery disease Continue Lovenox for DVT prophylaxis Blood sugars are well controlled on current treatment Discussed with case management today. Plan is for home with 24-hour care on 12/2016
--- NOTE | 2017-02-26 15:37 | XRay Report ---
Indication: back pain, rule out constipation PROCEDURE: XR KUB: Encounter: Initial Comparison: November 20, 2016 Findings: The bowel gas pattern is nonobstructive and nonspecific. Gas is seen throughout small and large bowel to the level of the rectum. Moderate stool in the colon. Mild degenerative change in the spine and hips. Lung bases are grossly clear. Cholecystectomy clips. Impression: Nonobstructive nonspecific bowel gas pattern. Interval decrease in stool burden compared to the November study. .
[2017-02-26] MEDS: BISACODYL 10 MG SUPPOSITORY RECTALLY SCH ×2 (16:10→20:27)
[2017-02-26] MEDS: POLYETHYL GLYCOL 3350 17gm PACKET PO SCH ×2 (16:10→20:29)
[2017-02-26] MEDS: ACETAMINOPHEN 325 MG TABLET PO SCH ×2 (17:43→20:28)
[2017-02-26] MEDS: ESTRADIOL 0.01% VAGINAL CREAM 42.5gm VAGINAL SCH (20:29)
[2017-02-26] MEDS: SALINE FLUSH 10ml SYRINGE IV PRN (23:50)
[2017-02-27] MEDS: LEVOTHYROXINE 50 MCG TABLET PO SCH (05:57)
[2017-02-27] MEDS: ACETAMINOPHEN 325 MG TABLET PO SCH ×4 (08:33→23:53)
[2017-02-27] MEDS: ASCORBIC ACID 500 MG TABLET PO SCH (08:33)
[2017-02-27] MEDS: ASPIRIN 81 MG CHEWABLE TABLET PO SCH (08:33)
[2017-02-27] MEDS: METHENAMINE HIPPURATE 1 GM TABLET PO SCH (08:34)
[2017-02-27] MEDS: SITAGLIPTIN 100 MG TABLET PO SCH (08:34)
[2017-02-27] MEDS: MEMANTINE 10 MG TABLET PO SCH ×2 (08:35→23:54)
[2017-02-27] MEDS: CLOPIDOGREL 75 MG TABLET PO SCH (08:35)
[2017-02-27] MEDS: MULTI-VITAMIN + MINERAL TABLET PO SCH (08:35)
[2017-02-27] MEDS: METFORMIN 500 MG TABLET PO SCH (08:35)
[2017-02-27] MEDS: AMIODARONE 200 MG TABLET PO SCH (08:35)
[2017-02-27] MEDS: CYANOCOBALAMIN (B-12) 500mcg TABLET PO SCH (08:35)
[2017-02-27] MEDS: CEFTRIAXONE 1 G in NS 100 ML IV SCH (08:36)
[2017-02-27] MEDS: ENOXAPARIN 40 MG/0.4 ML INJECTION SQ SCH (08:36)
[2017-02-27] MEDS: SALINE FLUSH 10ml SYRINGE IV PRN (08:37)
[2017-02-27] MEDS: NS FLUSH BAG 500ml IV PRN (08:38)
[2017-02-27] MEDS: POLYETHYL GLYCOL 3350 17gm PACKET PO SCH ×2 (08:38→23:53)
[2017-02-27] MEDS: BISACODYL 10 MG SUPPOSITORY RECTALLY SCH ×2 (10:30→23:55)
--- NOTE | 2017-02-27 10:36 | Progress Note ---
<Maria C Garg - Last Filed: 02/27/17 13:55> - Date 02/27/17 Subjective: Pt seen sitting in her chair today. She is complaining of a sore mouth. Says "they" are putting "stuff" in her mouth and she doesn't know why. "They put this crap in my mouth and they won't tell me why they are doing it." She is oriented to self and place and knows her daughter's name, but seems more confused today. She cannot remember if she has had a BM. Still c/o back pain but this is chronic for her and she states it is no worse than usual. Objective Vital signs: Temperature 96.3 F L 02/27/17 07:36 Pulse Rate 81 02/27/17 07:36 Respiratory Rate 16 02/27/17 07:36 Blood Pressure 110/67 02/27/17 07:36 Pulse Oximetry 93 02/27/17 07:36 Height/Weight/BMI: Height 1.68 m Weight 67.3 kg Body Mass Index 23.8 - Constitutional Present: no acute distress, well developed - Routine HEENT Exam ENT: Present: mucous membranes moist Comments: tongue is white and she has a small amt of white exudate lateral to the L tonsillar pillar. Lips are dry. - Routine Respiratory Exam Present: CTA bilaterally. Absent: wheezes - Routine Cardiovascular Exam Present: RRR, murmur (3/6) - Routine Abdominal Exam Present: soft, normoactive bowel sounds, non distended. Absent: tenderness - Routine Extremities Exam Present: no edema, normal capillary refill - Routine Skin Exam Present: dry, warm - Routine Neurological Exam Present: alert, moving all extremities. Absent: tremors - Routine Lymphatic Exam Lymphatic: Absent: adenopathy - Routine Psychiatric Exam Present: normal affect (seems to "space out" at times), cooperative Results - Labs CBC & Chem 7: 02/26/17 08:23 02/26/17 08:23 Assessment and Plan (1) Recurrent UTI Current visit: Yes Status: Acute (2) Acute cystitis without hematuria Current visit: No Status: Acute Assessment and Plan: Impression Polymicrobial UTI (Enterococcus & E. coli), failed outpatient treatment Acute encephalopathy-not improved per patient's daughter. She's been below baseline for the past 1 month, but worsened in the past 1 week Dementia Paroxysmal atrial fibrillation Atherosclerotic heart disease of [place] coronary artery without angina pectoris Nonrheumatic aortic valve stenosis-severe (sees Dr. Vanessa) Type 2 diabetes mellitus without complications Hypothyroid HTN H/o Left UE DVT Chronic constipation Plan Repeat UA given the worsening confusion. On questioning pt she admits to dysuria, but question accuracy of her answers given the altered mental state. Suspect sxs are progression of dementia. Perhaps if she were back in her own environment she would improve. Will DC home today with daughter. Hospital Course Summary Disclaimer: The visit summary below is not to be considered part of the above Progress Note. Hospital Course: IMPRESSION Polymicrobial UTI (Enterococcus & E. coli), failed outpatient treatment Acute encephalopathy Paroxysmal atrial fibrillation Atherosclerotic heart disease of [place] coronary artery without angina pectoris Nonrheumatic aortic valve stenosis Type 2 diabetes mellitus without complications Recurrent UTI Hypothyroid HTN H/o Left UE DVT 02/21/17 Admit, swing bed status. Continue Rocephin & Vancomycin for polymicrobial UTI to complete a 10 day course (start date: late in the evening of 02/17/17). DC possible on 02/27/17. Continue meds for PAF and CAD - amiodarone, Plavix, ASA Monitor BGM and continue metformin, Januvia, and CC diet DC IVF; monitor I&O. 02/22/17 1. Recurrent UTI -On extended antibiotics for E.Coli and Enterococcus faecium -Rocephin and vanco until 02/27/2017 2. Dementia -worsened by UTI -Namenda 3. DM -On metformin and Januvia 4. CAD -s/p stent to LAD 01/24/2017, RCA in September 2016 -ASA, plavix -No statin as far as I can tell 5. Hypothyroid -On supplements -TSH fine here 6. Severe aortic stenosis -Medical management -Dr. Garcia is her adjuster arbitrator 7. PAF -On amiodarone -No OAC -[id number] 8. Prophylaxis -Lovenox 02/23/17 No changes. Continue atbx. 02/24/17 On extended antibiotics for E.Coli and Enterococcus faecium in urine. Continue Rocephin and vanco until 02/27/2017 Vitals and labs are stable. 02/25/2017 Impression Polymicrobial UTI (Enterococcus & E. coli), failed outpatient treatment Acute encephalopathy Paroxysmal atrial fibrillation Atherosclerotic heart disease of [place] coronary artery without angina pectoris Nonrheumatic aortic valve stenosis Type 2 diabetes mellitus without complications Recurrent UTI Hypothyroid HTN H/o Left UE DVT Plan Continue Rocephin and vancomycin through 02/27/2017 for Escherichia coli and enterococcus faecium UTI Continue aspirin and Plavix for coronary artery disease Continue Lovenox for DVT prophylaxis Blood sugars are well controlled on current treatment Discussed with case management today. Plan is for home with 24-hour care on 12/2016 <Amara Perez - Last Filed: 02/27/17 17:50> - Date 02/27/17 Objective Vital signs: Temperature 98.0 F 02/27/17 15:35 Pulse Rate 74 02/27/17 15:35 Respiratory Rate 18 02/27/17 15:35 Blood Pressure 133/62 02/27/17 15:35 Pulse Oximetry 96 02/27/17 15:35 Height/Weight/BMI: Height 1.68 m Weight 67.3 kg Body Mass Index 23.8 Results - Labs CBC & Chem 7: 02/27/17 15:20 02/27/17 15:20 Assessment and Plan (1) Recurrent UTI Current visit: Yes Status: Resolved (2) Acute cystitis without hematuria Current visit: No Status: Resolved Assessment and Plan: 02/27/2017-I reviewed this chart, the patient history, and the DIE POLISHER's/PA's documented findings as above. We discussed and formulated the assessment and plan as above with the additions below.-Dr. Perez I talked to the patient's daughter earlier this morning and then again late this afternoon. She stated that her mother was doing better this morning but this afternoon is more confused again. She states she was hallucinating last night and saying she was seeing bats in the room. Today she is perseverating about the color green and pointing out everything that is green and stating that maybe that's why she is sick. Her only complaint is of right low back pain and she points to the right low back/buttock area. She has had no recent falls but did have a syncopal event 1 month ago. Her daughter states she is more confused today than she was a week ago when she was admitted for encephalopathy thought to be secondary to UTI. She has received one week of IV antibiotics and urinalysis is now normal. I wonder whether her initial confusion was secondary to UTI or not. She does have underlying dementia and has had several ischemic strokes in the past. Her daughter states that she has not been back to her baseline mental status for the past 1 month after suffering a syncopal event associated with an acute VA requiring heart catheterization and stent placement. She states her mother's mental status didn't prove but never returned to baseline and then worsened this past week and half. The patient has had a new cough today. Patient's daughter Mariajose states that she had a cold last week and tried to wear a mask to prevent infecting her mother. The patient appeared to be constipated yesterday and she was given laxatives with good results. She also complained of low back pain yesterday and was started on scheduled Tylenol but this has not helped with her confusion. Patient is not on any medications that typically cause confusion. B-12, and TSH were all normal in late October of this year. Will recheck B-12 and TSH today. On exam the patient is confused and had some signs of hallucinations. She is alert. She has no focal deficits. She occasionally will slur her words. She has an occasional cough. Chest is clear to auscultation. Cardiovascular reveals a regular rate and rhythm. Abdomen is soft and nontender. Extremities are free of edema. Plan Regarding continued delirium, will give 1 L of IV fluids. Check TSH and B-12. Consult neurology and psychiatry. Will discontinue one of the patient's oral diabetes medicine in case she is having episodes of hypoglycemia. She currently has a low hemoglobin A1c of 5.3. I offered MRI, but the patient's daughter would like to wait and see if she gets better with fluids. We'll check viral respiratory swab regarding the patient's cough. We'll check an x-ray of the pelvis and right hip regarding low back/hip pain. We 'll order a Lidoderm patch. Continue scheduled Tylenol. We were planning to dismiss the patient today, but with her delirium not improving will do further workup. Hospital Course Summary Disclaimer: The visit summary below is not to be considered part of the above Progress Note.
[2017-02-27] MEDS: NYSTATIN 500,000 units/5 ml ORAL LIQUID PO SCH ×3 (12:31→23:53)
--- NOTE | 2017-02-27 14:13 | Discharge Summary ---
<Maria C Garg - Last Filed: 02/27/17 14:09> Discharge Information Date of admission: 02/20/17 15:46 Anticipated date of discharge: 02/27/17 Attending Physician: Amara Perez MD Primary care physician: Colleen Caballero MD Consults: none - Discharge Diagnosis (1) Recurrent UTI Status: Resolved (2) Acute cystitis without hematuria Status: Resolved Polymicrobial UTI (Enterococcus & E. coli), failed outpatient treatment Acute encephalopathy-not improved per patient's daughter. She's been below baseline for the past 1 month, but worsened in the past 1 week Dementia Paroxysmal atrial fibrillation Atherosclerotic heart disease of [place] coronary artery without angina pectoris Nonrheumatic aortic valve stenosis-severe (sees Dr. Vanessa) Type 2 diabetes mellitus without complications Hypothyroid HTN H/o Left UE DVT Chronic constipation - Laboratory Labs: 02/26/17 08:23 02/26/17 08:23 Laboratory Tests 02/27/17 10:46 Urine Color Yellow Urine Clarity Clear Urine pH 6.0 Ur Specific [place] 1.025 Urine Protein Negative Urine Glucose (UA) Negative Urine Ketones Negative Urine Occult Blood Trace-intact Urine Nitrate Negative Urine Bilirubin Negative Urine Urobilinogen 0.2 Ur Leukocyte Esterase Trace A Urinalysis Comment Microscopic not ind. - Radiology Radiology: 02/26/17 Indication: back pain, rule out constipation PROCEDURE: XR KUB: Findings: The bowel gas pattern is nonobstructive and nonspecific. Gas is seen throughout small and large bowel to the level of the rectum. Moderate stool in the colon. Mild degenerative change in the spine and hips. Lung bases are grossly clear. Cholecystectomy clips. Impression: Nonobstructive nonspecific bowel gas pattern. Interval decrease in stool burden compared to the November study. History of Present Illness HPI: Edel La is being admitted to swing bed status to complete IV abx for recurrent UTI. She failed outpatient therapy with Keflex. She was admitted on 02/17/17 for polymicrobial UTI with Enterococcus faecium & E. coli, and she was also markedly encephalopathic on admission. She was started on vanco and Rocephin. A PICC was placed and she was discharged from the acute care setting on 02/20/17. She will require 7-10 more days of abx prior to discharge home. Medically she remained stable, though remained confused and sleepy at times. When she was seen in the morning of 02/21/17, she was sleeping comfortably. She did not easily awaken and was unable to provide ROS or confirm HPI/PMH. Her nurse reported that she is typically A&O to self only and she has a hx of underlying dementia. Objective Vital signs: Temperature 96.3 F L 02/27/17 07:36 Pulse Rate 81 02/27/17 07:36 Respiratory Rate 16 02/27/17 07:36 Blood Pressure 110/67 02/27/17 07:36 Pulse Oximetry 93 02/27/17 07:36 Height/Weight/BMI: Height 1.68 m Weight 67.3 kg Body Mass Index 23.8 - Constitutional Present: no acute distress, well nourished, well developed - Routine HEENT Exam Head: Present: normocephalic ENT: Present: mucous membranes moist, oropharynx clear Comments: Tongue white with small amount of white exudate lateral to the left tonsillar pillar. Lips are dry - Routine Respiratory Exam Present: CTA bilaterally. Absent: wheezes - Routine Cardiovascular Exam Present: RRR, murmur (3/6) - Routine Abdominal Exam Present: soft, normoactive bowel sounds, non distended. Absent: tenderness - Routine Extremities Exam Present: no edema, normal capillary refill - Routine Skin Exam Present: dry, warm - Routine Neurological Exam Present: alert Oriented to self and place. Knows her daughters name, that answer some questions nonsensically. - Routine Lymphatic Exam Lymphatic: Absent: adenopathy - Routine Psychiatric Exam Present: normal affect, cooperative Hospital Course This is a general summary of the patient's hospital course. For more details refer to the complete medical record. Hospital course: Patient was admitted to [facility] on 02/21/17 for continuation of Rocephin and vancomycin for polymicrobial UTI. She was continued on all of her home medications. Her blood sugars were followed throughout her stay and remained stable. Her alertness and confusion waxed and waned throughout her stay. Overall, she never returned to her baseline prior to hospitalization. Repeat UA was performed prior to discharge given that she was still confused, and it was essentially clear. Suspect her encephalopathy is a result of the progression of her dementia. Her encephalopathy has been waxing and waning for the past 1 months she was admitted with a syncopal event and elevated troponin and underwent heart catheterization and stent placement. Is possible she had prolonged hypoxia or hypotension at that time contributing to her worsening confusion. Daughter agreed to take patient home at this point is noted she will improve in her own environment. She will have caregivers at home with her daughter is not there. Will plan to have her follow-up with her regular physician in one week. As her labs have been stable, there is no recommendation for repeat labs. Further labs can be at the discretion of her PCP. Time spent with patient: greater than 35 minutes DVT Prophylaxis: Xarelto Discharge Plan - Discharge Disposition Discharge Date: 02/27/17 Disposition: Discharged Home, Self-Care *Condition: Stable Reason For Visit (Visit label in EMR): UTI, encephalopathy - Discharge Medications *Discharge Medications: New Nystatin Oral Liq. [Mycostatin] 5 ml PO QID #150 ml Estradiol Vag Cream [Estrace Vag Cream] 1 applic VAGINAL HS tube PEG 3350 17gm PACKET [Miralax] 17 gm PO BID packet Lidocaine 5% Patch [Lidoderm] 1 patch TOP DAILY #14 patch Metformin [Glucophage] 500 mg PO WB #30 tab Continue Docusate Sodium [Colace] 100 mg PO DAILY #0 cap Amiodarone HCl 100 mg PO DAILY #0 Multivit-Min/FA/Lycopen/Lutein [Centrum Silver Tablet] 1 tab PO DAILY #0 Levothyroxine Sodium 50 mcg PO ACB #0 Methenamine Hippurate [Hiprex] 1 gm PO DAILY Ascorbic Acid [Vitamin C with Kelli Hips] 500 mg PO DAILY Acetaminophen [Tylenol] 325 - 650 mg PO Q5H PRN tablet PRN Reason: Discomfort Memantine HCl [Namenda Xr] 28 mg PO DAILY #0 cap Cyanocobalamin (Vitamin B-12) [Vitamin B-12] 1,000 mcg PO DAILY #30 tab Cranberry Fruit Extract [Cranberry] 500 mg PO BID #0 Aspirin 81 mg PO DAILY Clopidogrel [Plavix] 75 mg PO DAILY Discontinued Sitagliptin Phos/Metformin HCl [Janumet 50-500 mg Tablet] 1 tab PO DAILY #0 Ceftriaxone [Rocephin] 1 g IV 1200 vial Vancomycin [Vancocin] 1,000 mg IV Q12H vial Ondansetron Inj [Zofran] 4 mg IVP Q6H PRN vial PRN Reason: Nausea &/Or Vomiting No Action Estradiol Vag Cream [Estrace Vag Cream] 1 applic VAGINAL HS tube - Discharge Packet/Instructions *Diet: regular diet *Activity: as tolerated *Pain Management/Treatment: Tylenol as needed *Wound Care: n/a *Expected Signs/Symptoms: improvement in confusion *Notify Physician if: you develop fever *During Business Hours Contact: Dr. Caballero's office *After Business Hours Contact: Dr. Caballero's office and follow after hour instructions *Pending Lab/Results: No Pending Lab - Referrals/Follow Up *Referrals/Follow Up: Colleen Caballero MD [Family Provider] - 1 Week (CALL AND MAKE AN APPOINTMENT WITH FOR I WEEK OFFICE NUMBER [phone]) - Patient Handouts Patient Handouts: Urinary Tract Infection in Women (GEN) - Dismissal Complete Discharge Instructions are:: Complete <Amara Perez - Last Filed: 02/28/17 11:21> Discharge Information Date of admission: 02/20/17 15:46 Anticipated date of discharge: 02/28/17 Attending Physician: Amara Perez MD Primary care physician: Colleen Caballero MD Consults: Consulting Provider: Debbie Suazo Reason For Exam: encephalopathy, hallucinations, dementia - Discharge Diagnosis (1) Recurrent UTI Status: Resolved (2) Acute cystitis without hematuria Status: Resolved right low back pain, improved with lidoderm patch - Laboratory Labs: 02/28/17 04:32 02/28/17 04:32 Vitamin B 12 is greater than 1000, TSH is normal at 0.68 - Radiology Radiology: PROCEDURE: XR pelvis w/ 1 view RT hip: Encounter: Initial Comparison: February 26, 2017 and November 20, 2016 Findings: There is no acute fracture, dislocation or malalignment identified. There is suggestion of a lytic focus in the medial aspect of the left femoral head. Bony demineralization. Degenerative change in the lower lumbar spine. Moderate right hip joint space narrowing. Impression: No acute osseous abnormality. Possible lytic lesion in the left femoral head. CT could be performed for further evaluation. Objective Vital signs: Temperature 98.5 F 02/28/17 07:00 Pulse Rate 89 02/28/17 07:00 Respiratory Rate 16 02/28/17 07:00 Blood Pressure 139/69 02/28/17 07:00 Pulse Oximetry 95 02/28/17 07:00 Height/Weight/BMI: Height 1.68 m Weight 69 kg Body Mass Index 23.8 Hospital Course This is a general summary of the patient's hospital course. For more details refer to the complete medical record. Hospital course: 02/28/2017-I reviewed this chart, the patient history, and the FLEX O WRITER OPERATOR's/PA's documented findings as above. We discussed and formulated the assessment and plan as above with the additions below.-Dr. Perez The patient's discharge was put on hold yesterday because of worsening confusion. She was given 1 L of IV fluids overnight. She is feeling better this morning. Her daughter is here and states that her confusion is improved but not quite back to baseline. Dr. Suazo, her long-term neurologist, was consulted and he stated he thought her delirium was secondary to her dementia which waxes and wanes. With normal lab, recently normal UA, and controlled pain, he is not recommending any further workup or evaluation at this time. The patient's daughter states she seems to be doing well enough to dismiss to home now. Lab work today looks good. B-12 and TSH are normal. The patient states her low back pain on the right is better after Lidoderm patch. She is eating and drinking okay. She did have a runny nose and viral respiratory panel was positive for hurst virus. Her daughter did have an upper respiratory infection last week, as well. On exam today the patient is alert, in a good mood, and more talkative. She still has confusion but seems to stay on topic better today. Chest is clear to auscultation. Cardiovascular reveals a regular rate and rhythm. Abdomen is soft and nontender. Extremities are free of edema. We'll plan for discharge to home today. Regarding medications: We'll discontinue Janumet to prevent hypoglycemia. A1c recently was 5.3. We'll give Glucophage 500 mg once daily instead. Continue Lidoderm patch which was started here in the hospital and seems to be helping with her low back pain. We'll give MiraLAX for constipation prevention. The patient did have constipation this hospital course which improved with MiraLAX. Follow-up with Dr. Caballero in 1 week.
[2017-02-27] MEDS ORDERED: NS 1,000 ML IV SCH (17:30)
[2017-02-27] MEDS: LIDOCAINE 5% PATCH TOP SCH (18:06)
[2017-02-27] MEDS ORDERED: HALOPERIDOL 0.5 MG TABLET PO SCH (21:00)
[2017-02-27] MEDS: ESTRADIOL 0.01% VAGINAL CREAM 42.5gm VAGINAL SCH (23:54)
[2017-02-28] MEDS: LEVOTHYROXINE 50 MCG TABLET PO SCH (06:54)
[2017-02-28 08:29] VITALS: BP 139/69; PULSE 89; RESP 16; TEMP 98.5; O2SAT 95
--- NOTE | 2017-02-28 09:04 | XRay Report ---
Indication: hip pain, buttock pain PROCEDURE: XR pelvis w/ 1 view RT hip: Encounter: Initial Comparison: February 26, 2017 and November 20, 2016 Findings: There is no acute fracture, dislocation or malalignment identified. There is suggestion of a lytic focus in the medial aspect of the left femoral head. Bony demineralization. Degenerative change in the lower lumbar spine. Moderate right hip joint space narrowing. Impression: No acute osseous abnormality. Possible lytic lesion in the left femoral head. CT could be performed for further evaluation. .
[2017-02-28] MEDS: ACETAMINOPHEN 325 MG TABLET PO SCH (10:20)
[2017-02-28] MEDS: METFORMIN 500 MG TABLET PO SCH (10:20)
[2017-02-28] MEDS: ASCORBIC ACID 500 MG TABLET PO SCH (10:21)
[2017-02-28] MEDS: AMIODARONE 200 MG TABLET PO SCH (10:21)
[2017-02-28] MEDS: ENOXAPARIN 40 MG/0.4 ML INJECTION SQ SCH (10:22)
[2017-02-28] MEDS: BISACODYL 10 MG SUPPOSITORY RECTALLY SCH (10:22)
[2017-02-28] MEDS: CYANOCOBALAMIN (B-12) 500mcg TABLET PO SCH (10:22)
[2017-02-28] MEDS: ASPIRIN 81 MG CHEWABLE TABLET PO SCH (10:22)
[2017-02-28] MEDS: CLOPIDOGREL 75 MG TABLET PO SCH (10:22)
[2017-02-28] MEDS: POLYETHYL GLYCOL 3350 17gm PACKET PO SCH (10:23)
[2017-02-28] MEDS: METHENAMINE HIPPURATE 1 GM TABLET PO SCH (10:23)
[2017-02-28] MEDS: MULTI-VITAMIN + MINERAL TABLET PO SCH (10:23)
[2017-02-28] MEDS: NYSTATIN 500,000 units/5 ml ORAL LIQUID PO SCH (10:23)
[2017-02-28] MEDS: LIDOCAINE 5% PATCH TOP SCH (10:23)
[2017-02-28] MEDS: MEMANTINE 10 MG TABLET PO SCH (10:23)
--- NOTE | 2017-02-28 14:16 | Consultation ---
DATE OF CONSULTATION: 02/28/2017 [id number] REFERRING PHYSICIAN: Dr. Perez CHIEF COMPLAINT: Confusion and UTI. HISTORY OF PRESENT ILLNESS Patient is an 87-year-old female with history of cerebrovascular disease, dementia and recurrent UTI. The patient has been treated several times for UTI associated with metabolic encephalopathy and mild confusion. The patient was recently discharged from [facility] for a polymicrobial UTI with Enterococcus faecium and E. coli. The patient failed some oral medication for another UTI she had recently and she has been readmitted for IV antibiotic. The patient has done well with treatment. Her lab has cleared and she has been asymptomatic. The patient continues to have some mild confusion and difficulty going back to her baseline. Some of that has been associated with her dementia. The patient has been taking Namenda for dementia. She could not tolerate Aricept in the past. She also had history of stroke which has increased her risk for memory loss and decompensation problems. She had no new focal weakness or numbness at present hospitalization. The patient was seen earlier today. She was eating her breakfast and watching TV. She had no focal weakness or numbness. She was enjoying her meals. Patient was able to follow some commands. She was able to read the clock. She was able to name colors and objects. 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 She was having difficulty with calculation and focusing on things. She was having difficulty finding words, also. PHYSICAL EXAMINATION The patient was awake, alert, oriented to self. She had difficulty naming the place and time. Speech was slow and hesitant. Extraocular muscles were intact. Visual field was full. Motor examination was 5-/5 in all extremities. Sensory was slightly diminished in the hands. Deep tendon reflexes were 2/5. Coordination for [id number] was borderline and slow. There was no significant asymmetrical weakness or numbness even from the prior stroke. ASSESSMENT 1. Metabolic encephalopathy associated with UTI. This has been exacerbated by the history of dementia and cerebrovascular disease causing her to decompensate easily. The patient is almost back to baseline. She has been able to eat and function at a good level today. She continues to have problems with short-term memory, attention and focusing. She also has problems with speech and language , all of which are related to her dementia and prior cerebrovascular disease. PLAN 1. The patient can sent home on preventative treatment for UTI and on her current regimen for dementia. She should continue taking her baby aspirin and Plavix for stroke prevention. Patient may benefit from home care and daily exercise to improve her overall mental and physical functioning. LAKIA
--- NOTE | 2017-03-01 10:03 | Right on Track Program ---
Right on Track Program Date of Discharge: 02/28/17 Home Medications: Home Medications Medication Instructions Recorded Confirmed Docusate Sodium [Colace] 100 mg PO DAILY #0 cap 09/05/15 03/01/17 Memantine HCl [Namenda Xr] 28 mg PO DAILY #0 cap 09/05/15 03/01/17 Amiodarone HCl 100 mg PO DAILY #0 03/31/16 03/01/17 Multivit-Min/FA/Lycopen/Lutein 1 tab PO DAILY #0 03/31/16 03/01/17 [Centrum Silver Tablet] Levothyroxine Sodium 50 mcg PO ACB #0 06/29/16 03/01/17 Cranberry Fruit Extract [Cranberry] 500 mg PO BID #0 08/13/16 03/01/17 Cyanocobalamin (Vitamin B-12) 1,000 mcg PO DAILY #30 tab 08/13/16 03/01/17 [Vitamin B-12] Aspirin 81 mg PO DAILY 10/14/16 03/01/17 Clopidogrel [Plavix] 75 mg PO DAILY 11/14/16 03/01/17 Ascorbic Acid [Vitamin C with Kelli 500 mg PO DAILY 02/17/17 03/01/17 Hips] Methenamine Hippurate [Hiprex] 1 gm PO DAILY 02/17/17 03/01/17 Previous Rx's Medication Instructions Recorded Acetaminophen [Tylenol] 325 - 650 mg PO Q5H PRN tablet 02/20/17 Estradiol Vag Cream [Estrace Vag 1 applic VAGINAL HS tube 02/27/17 Cream] Nystatin Oral Liq. [Mycostatin] 5 ml PO QID #150 ml 02/27/17 PEG 3350 17gm PACKET [Miralax] 17 gm PO BID packet 02/27/17 Lidocaine 5% Patch [Lidoderm] 1 patch TOP DAILY #14 patch 02/28/17 Metformin [Glucophage] 500 mg PO WB #30 tab 02/28/17 - Right on Track Program 24 hour phone call Date: 03/01/17 Right on Track Program: 24 Hour Follow-Up Discharge Summary Received: Yes Care Plan Received: Yes Follow Up: Follow Up Appointment Scheduled (uncertain per caregiver) Education: Education Provided To Caregiver [facility] Fall Intervention: No Referral: Primary Care Physician Comments: I spoke to Edel Carmen's caregiver (Mariajose, Edel's daughter is working [flight operations coordinator] and won't be home until 03/02/17). Kermit stated that Edel woke up well and was soaked with urine. Kermit gave her a sponge bath and then later helped her walk to the kitchen for breakfast. While she was walking, she became very weak and nearly fell down. At breakfast, she was groggy and kept falling asleep but woke up easily with verbal stimulation and with encouragement was able to eat her oatmeal. Kermit doesn't have a glucometer or any equipment to check vital signs. Edel will be receiving Home Health through [facility] but Kermit doesn't know when they will be out to see her. We reviewed signs of worsening status - increased lethargy, fever, fall with injury, new pain, or difficulty breathing. Later, Mariajose called me from [facility] [place], after speaking with Kermit. She is concerned b/ c last night she was doing quite well and this is a drastic change in her mental status. She called [facility], and a RN was able to go to assess . She reported a low-grade temp of 100, remainder of VS were stable. She was extremely lethargic - RN wasn't able to wake her up, and she concurred that this was much different than 's baseline. She also had cough/congestion. The caregiver activated 911 and JOHNY was taken to the ED, where CBC and CMP were essentially unremarkable. CXR showed left sided air space disease. She was afebrile, without overt signs of sepsis, and was maintaining sats >90% on room air. JOHNY remained very weak. Due to concerns about incontinence contributing to recurrent UTI, plus her inability to ambulate well to the bathroom, a Ramirez catheter was inserted prior to discharge home. Recommendations For Follow-up: IMPRESSION Polymicrobial UTI (Enterococcus & E. coli) - TREATED WITH VANCO & ROCEPHIN Acute encephalopathy Dementia Paroxysmal atrial fibrillation Atherosclerotic heart disease of [place] coronary artery without angina pectoris Nonrheumatic aortic valve stenosis-severe (sees Dr. Vanessa) Type 2 diabetes mellitus without complications Hypothyroid HTN H/o Left UE DVT Chronic constipation PLAN 1. Reviewed signs of worsening status with caregiver Kermit. I gave her my hospital contact info and encouraged her to call me with concerns. She understands that if symptoms are severe she should call 911. 2. Home Health with [facility] 3. Re-eval in ED d/t altered mental status (lethargy) and low-grade temp with cough and congestion - discharged home with Ramirez. 4. Edel's daughter Mariajose will be home tomorrow and I will discuss treatment plan further with her then. [id number] VISIT Date: 03/04/17 Right on Track Program: 7-14 Day [id number] Discharge Summary Received: Yes Care Plan Received: Yes Follow Up: Follow Up Appointment Scheduled (Mariajose will reschedule) Education: Diagnosis Education Reviewed, Education Provided To Caregiver [facility] Fall Intervention: No Referral: Durable Medical Equipment (Leg bag), Primary Care Physician, Home Health, Other (Urologist) Comments: I visited JOHNY and her daughter, Mariajose, at JOHNY's home in [place] on 03/05/17. We discussed numerous topics, as summarized below: Ramirez - inserted on 03/01/17 due to incontinence and inability to ambulate. JOHNY is incontinent of both bowel and bladder and per report she sleeps soundly all night long, and when awakened in the morning is "soaked with urine" and sometimes "from head to toe" (per caregiver), raising issues for promoting an environment conducive to bacterial growth and increasing risk of skin breakdown. * Risks predominantly include UTI; dislodgment/discomfort; urethral trauma ( indeed there was a small area of bright red in her depends); ambulatory compromise; chronic bacteruria * Benefits include protecting the skin; visual tool to assess hydration (Mariajose actually has been measuring I/O) & evidence for UTI (cloudy, sentiment, malodorous, etc.) * Education on kaleb-care, Ramirez care, taping the catheter gently to the leg to prevent urethral trauma was provided by the HH RN, who was also present. * will bring a leg bag and provide additional education on 03/06/17. * Mariajose opted to leave it in for the time being, pending further discussion with Dr. Caballero and Dr. Garcia. Palliative Performance Scale * Ambulatory: 50-60% * Activity level: 60% * Self-care: 50% * Intake: 100% * LOC: 60% Bothersome symptoms * occasional episodes of dizziness, pallor, sweating, followed by syncope - discussed multiple potential causes including hypoglycemia, orthostatic/ postural hypotension, valvular origin, etc. * low back pain, mild and unrestrictive - Mariajose will fern picker lidoderm patch from pharmacy (just approved by insurance) * Cough/congestion - improving; only with mild nonproductive cough * Weakness - much improved since 03/01/17, able to ambulate from one room to the next with her walker (though with exertional dyspnea), back to baseline Evidence of worsening disease since February, * Dementia progression - increasing symptoms of dementia. * Loss of both bowel/bladder function * Requires walker to ambulate. * Able perform some ADLs, but requires assistance for most. * Sits most of the day; very little activity. Naps from [id number] daily. * Communication skills - able to easily make needs known. * PHQ-2 was negative. * 10 lb weight loss around July 2016 but has gained most of it back. Good oral intake. * Valvular heart disease * Increasing signs of exertional dyspnea. * No chest pain, dyspnea at rest, or edema. * Increased acute healthcare utilization - since April,, she has had 5 hospitalizations (primarily for CAD and UTI) and 2 ED visits that didn't result in hospitalization. Advanced directives * DPOA - Mariajose * She does not have a living will, but at this time would not consent to a feeding tube or mechanical ventilation, if her condition required. If she gets to that point, Mariajose would choose hospice (has been on hospice before for cardiac reasons, but improved after intervention with Dr. Vanessa). * Code status - DNR. We discussed the grim chance of a meaningful recovery, and Mariajose reiterated that she does not want ribs to crack or for her mother to be in pain - in essence, no heroic measures. Medication review * Mariajose organizes them into a pill box. She is well-versed in the names and indications and was able to identify the pills by name and explain why JOHNY takes them. * Rx Metformin not yet filled - Mariajose had questions on the benefits of this versus Janumet. We discussed the most pressing issue of hypoglycemia (which may have had a role in the episode on 03/01/17 and in Mariajose's descriptions of her mother becoming dizzy, pale, and passing out). Further with hgb A1c of 5.3%, DM is under excellent control. She will stop Janumet and fill Rx Metformin (as a bonus, the Janumet costs about $89 per month whereas the Metformin is 88 cents). * The Estrace vaginal cream has not been applied since she came home with the Ramirez. This was started per recommendations by Dr. Garcia. Recommended to not resume this since the Ramirez continues. * Nystatin was discontinued - no evidence of thrush on exam. Fall risk * At high risk per Medrano Fall Scale. * Daughter has altered environment to make it safer. She declined [facility] fall prevention home inspection. 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 She is maintaining her own home, her mother's home, and a farm. * She has hired private caregivers for the daytime hours. They are inconsistent in their caregiving habits despite Mariajose leaving detailed descriptions about how to care for her mother, also contributing to stress. She is considering looking for additional help (perhaps nursing students) to expand her pool of options. * She doesn't feel like she has time to take for herself, but tries to go for a walk when she can, plans two "girl trips" per year, and does daily devotions in the morning and evening. Exam * General: A&O (baseline), NAD, pleasant. Answers questions appropriately. * HEENT: No scleral icterus/injection; PERRL; No nasal drainage; mild irritation to her posterior pharynx without swelling; no thrush; mucous membranes were moist; no lymphadenopathy. * CV: RRR, with 4-5/6 harsh systolic murmur. * Lungs: Faint crackles b/l bases, L>R. Good air movement. * Abdomen: Benign. + Bowel sounds, soft, nontender. Mariajose reports regular bowel movements. * : visualization deferred but Ashley was hanging to DD with clear, light yellow colored urine. Mariajose emptied about 840 mL from bag in the morning. * Extremities: No edema. Discussed With Patient and Caregiver: Yes Recommendations For Follow-up: 1. Ramirez * Discussed with Dr. Garcia - recommends to continue prophylactic methenamine ( does not recommend other antibiotics d/t risk of resistance). She also recommends F/U with urologist (Dr. Mendoza). * Ramirez care was provided by the Home Health RN. They will bring a leg bag on and teach Mariajose how care for this. * Significant discussion on risks:benefits of Ramirez. Will discuss with Dr. Caballero as well. 2. Progression of disease * Dementia nor valvular/CAD appear to be end-stage but Mariajose isn't opposed to hospice if either one progresses. We discussed that her symptoms will undoubtedly worsen, we just don't know the time frame. We discussed worsening signs of both dementia and heart disease. * intermediate manager care is not an acceptable solution - she's been in SNF 3 times over the last year and each time JJ has declined. 3. Medications * Stop nystatin - thrush has resolved * Stop Janumet, start Metformin (Rx by Dr. Perez) * Stop Estrace vaginal cream while Ramirez is in place * Hold MiraLAX - having 1-2 large BM per day - Mariajose will restart if needed 4. Symptom management * Lidoderm patch for back pain; PT/OT * Suspect viral respiratory illness - encouraged deep breathing, increased activity, adequate hydration/nutrition. 5. Caregiver burden * Encouraged self-care * Continue Home Health & private duty support - Problems (1) Recurrent UTI Code(s): N39.0 - Urinary tract infection, site not specified Status: Resolved
== END 2017-02-28 12:25 | disposition home health service (06) | DRG 689 ==
LOC: SUATTDRO 15:46 → MED 15:58
PROVIDERS: ADMIT Family Medicine; ATTEND Internal Medicine

== ENCOUNTER 2017-05-08 18:30 | Inpatient (IN) ==
--- NOTE | 2017-05-08 19:02 | Emergency Department Report ---
General Adult HPI - General Chief complaint: Urogenital-Female Stated complaint: Weakness, Delirium Time Seen by Provider: 05/08/17 19:02 - Related Data Home Medications Medication Instructions Recorded Confirmed Multivit-Min/FA/Lycopen/Lutein 1 tab PO DAILY #0 03/31/16 05/05/17 [Centrum Silver Tablet] Levothyroxine Sodium 50 mcg PO ACB #0 06/29/16 05/05/17 Aspirin 81 mg PO DAILY 10/14/16 05/05/17 Clopidogrel [Plavix] 75 mg PO DAILY 11/14/16 05/05/17 Methenamine Hippurate [Hiprex] 1 gm PO DAILY 02/17/17 05/05/17 Amiodarone [Pacerone] 100 mg PO DAILY 05/05/17 05/05/17 Cyanocobalamin (Vitamin B-12) 2,500 mcg PO DAILY 05/05/17 05/05/17 [Vitamin B12] Docusate Sodium [Colace] 100 mg PO DAILY 05/05/17 05/05/17 Memantine HCl [Namenda Xr] 28 mg PO DAILY 05/05/17 05/05/17 Sitagliptin Phos/Metformin HCl 1 tab PO DAILY 05/05/17 05/05/17 [Janumet 50-500 mg Tablet] Previous Rx's Medication Instructions Recorded Estradiol Vag Cream [Estrace Vag 1 applicatio VG HS tube 02/27/17 Cream] PEG 3350 17gm PACKET [Miralax] 17 gm PO BID packet 02/27/17 Lidocaine 5% Patch [Lidoderm] 1 patch TOP DAILY #14 patch 02/28/17 Cefdinir [Omnicef] 1 tab PO BID #14 cap 05/05/17 Allergies Allergy/AdvReac Type Severity Reaction Status Date / Time lisinopril Allergy Severe Airway Verified 05/05/17 10:30 Obstruction PFSH Patient Stated Medical History Cerebrovascular Accident Yes: 5 YEARS AGO Dementia Yes Syncope Yes Other Cardiology Yes: SEVERE AORTIC STENOSIS, LEFT ARM BLOOD CLOT Diabetes Mellitus Type 2 Yes Other GI Yes: constipation Hx Incontinence Yes Hx Renal Disease No Hx Urinary Tract Infection Yes: frequent Clotting Problems Yes: l arm Osteoarthritis Yes Sepsis Yes Now No Medical History Updates: CAD with 2 stents this year: one in October, one on 01/24. Moderate to Severe Aortic Stenosis. Mild Dementia. LUE DVT. DM controlled on diet and Junumet. 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 Hypothyroidism. Paroxysmal atrial fibrillation Surgical History: Cardiac caths. Lap briseyda. KEVIN. Right TKA. B/L cataracts. colonoscopies - Social History Smoking status: Never smoker Disposition Prescriptions: No Action Multivit-Min/FA/Lycopen/Lutein [Centrum Silver Tablet] 1 tab PO DAILY #0 Levothyroxine Sodium 50 mcg PO ACB #0 Methenamine Hippurate [Hiprex] 1 gm PO DAILY Estradiol Vag Cream [Estrace Vag Cream] 1 applicatio VG HS tube PEG 3350 17gm PACKET [Miralax] 17 gm PO BID packet Lidocaine 5% Patch [Lidoderm] 1 patch TOP DAILY #14 patch Cyanocobalamin (Vitamin B-12) [Vitamin B12] 2,500 mcg PO DAILY Docusate Sodium [Colace] 100 mg PO DAILY Amiodarone [Pacerone] 100 mg PO DAILY Memantine HCl [Namenda Xr] 28 mg PO DAILY Cefdinir [Omnicef] 1 tab PO BID #14 cap Aspirin 81 mg PO DAILY Clopidogrel [Plavix] 75 mg PO DAILY Sitagliptin Phos/Metformin HCl [Janumet 50-500 mg Tablet] 1 tab PO DAILY Referrals: Colleen Caballero MD [Family Provider] -
[2017-05-08] MEDS ORDERED: PIPERACILLIN/TAZOBACTAM 3.375 GM in NS 100 ML IV ONE (19:12)
[2017-05-08] MEDS: SALINE FLUSH 10ml SYRINGE IVF PRN ×2 (19:35→22:46)
[2017-05-08] MEDS ORDERED: ONDANSETRON 4 MG/2 ML INJECTION IVP PRN (22:10)
[2017-05-08] MEDS ORDERED: HYDROCODONE/APAP 5mg/325mg TABLET PO PRN (22:10)
[2017-05-08] MEDS ORDERED: Oxycodone/Acetaminophen 5/325 1 TAB PO PRN (22:10)
[2017-05-08] MEDS ORDERED: MORPHINE SULFATE 2mg INJECTION IVP PRN (22:10)
[2017-05-08] MEDS ORDERED: DOCUSATE SODIUM 100 MG CAPSULE PO PRN (22:10)
[2017-05-08] MEDS: NS 1,000 ML IV SCH (22:44)
[2017-05-08] MEDS: MIDODRINE 5 MG PO SCH (23:03)
--- NOTE | 2017-05-08 23:06 | History & Physical Report ---
History of Present Illness Date: 05/09/17 Chief complaint: Weakness, falls HPI: Edel is a pleasant 87 Year old female patient of Dr. Cevallos who is on home hospice with advanced dementia. She is pseudo-independent in her home with daytime caregivers. Her daughter lives in the area but is a flight operations specialist so is frequently out of town. 3 days ago, Edel had not emergency department visit after a fall. She was hydrated, begun on Omnicef for a urinary tract infection. CT of her head at that time was negative. She was discharged home, but weakness has persisted, her daughter relates that she has essentially been in bed since then, and has had progressive weakness noted. This was the reason for that meenakshi's emergency department visit, and it was discovered that she is growing Pseudomonas in her urine with intermediate resistance to cefepime, likely resistant to Omnicef. The emergency provider discussed with her daughter, who favored admission for definitive treatment of urinary tract infection, in hopes of restoring her to her baseline physical level of functioning. Review of Systems ROS unobtainable: due to mental status ( Review of systems is documented is per her daughter who is at the bedside at the time of my evaluation) - Constitutional Constitutional: Present: weakness. Absent: fever(s), weight gain, weight loss - Cardiovascular Cardiovascular: Present: heart murmur. Absent: chest pain, edema - Respiratory Respiratory: Absent: cough, dyspnea, dyspnea on exertion, chest congestion - Gastrointestinal Gastrointestinal: Absent: diarrhea, vomiting - Genitourinary Genitourinary: Present: other ( chronic indwelling Ramirez catheter with dark foul-smelling urine. for at least several weeks) - Neurological Neurological: Present: frequent falls, memory loss. Absent: focal weakness Past Medical History Patient Stated Medical History Cerebrovascular Accident Yes: 5 YEARS AGO Dementia Yes Syncope Yes Other Cardiology Yes: SEVERE AORTIC STENOSIS, LEFT ARM BLOOD CLOT Diabetes Mellitus Type 2 Yes Other GI Yes: constipation Hx Incontinence Yes Hx Renal Disease Yes Hx Urinary Tract Infection Yes: frequent Clotting Problems Yes: l arm Osteoarthritis Yes Sepsis Yes Now No Medical History Updates: CAD with 2 stents this year: one in October, one on 01/24. Moderate to Severe Aortic Stenosis. Mild Dementia. LUE DVT. DM controlled on diet and Junumet. 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 Hypothyroidism. Paroxysmal atrial fibrillation Surgical History: Cardiac caths. Lap briseyda. KEVIN. Right TKA. B/L cataracts. colonoscopies Family History Updates: noncontributory - Social History Smoking status: Never smoker Housing: house (with home hospice) Household members: children ( as above sister in the area and present tonight) Current residence: Hospice (at home) Medications Home Medications Medication Instructions Recorded Confirmed Type Multivit-Min/FA/Lycopen/Lutein 1 tab PO DAILY #0 03/31/16 05/08/17 History [Centrum Silver Tablet] Levothyroxine Sodium 50 mcg PO ACB #0 06/29/16 05/08/17 History Aspirin 81 mg PO DAILY 10/14/16 05/08/17 History Clopidogrel [Plavix] 75 mg PO DAILY 11/14/16 05/08/17 History Amiodarone [Pacerone] 100 mg PO DAILY 05/05/17 05/08/17 History Memantine HCl [Namenda Xr] 28 mg PO DAILY 05/05/17 05/08/17 History Sitagliptin Phos/Metformin HCl 1 tab PO DAILY 05/05/17 05/08/17 History [Janumet 50-500 mg Tablet] Cyanocobalamin (Vitamin B-12) 2,500 mcg SL DAILY 05/08/17 05/08/17 History [B-12] Midodrine [Proamatine] 5 mg PO TID 05/08/17 05/08/17 History Allergies Allergy/AdvReac Type Severity Reaction Status Date / Time lisinopril Allergy Severe Airway Verified 05/08/17 19:15 Obstruction Exam Vital Signs: Temperature 98.2 F 05/08/17 18:45 Pulse Rate 70 05/08/17 22:00 Respiratory Rate 18 05/08/17 18:45 Blood Pressure 115/59 05/08/17 22:00 Pulse Oximetry 96 05/08/17 22:00 - Constitutional Present: no acute distress, average body habitus - Routine HEENT Exam Head: Present: normocephalic, atraumatic Eye: Present: EOMI ENT: Present: mucous membranes moist - Routine Neck Exam Present: supple. Absent: JVD - Routine Respiratory Exam Present: CTA bilaterally. Absent: accessory muscle use, respiratory distress - Routine Cardiovascular Exam Present: RRR, murmur ( systolic) - Routine Abdominal Exam Present: soft, normoactive bowel sounds, non distended. Absent: tenderness - Routine Extremities Exam Absent: cyanosis, clubbing, edema - Routine Skin Exam Absent: cyanosis, rash - Routine Neurological Exam Present: alert, CN II-XII intact. Absent: oriented X3 - Routine Psychiatric Exam Present: cooperative ( baseline not oriented pleasant) Results - Labs CBC & Chem 7: 05/08/17 19:39 05/08/17 19:39 Assessment and Plan (1) Recurrent UTI Problem details: failed outpt therapy; recurrent Current visit: No Status: Resolved (2) Nonrheumatic aortic valve stenosis Current visit: No Status: Chronic (3) Debility Current visit: Yes Status: Acute (4) HTN (hypertension) Current visit: No Status: Acute (5) Hypothyroid Current visit: No Status: Acute Assessment and Plan: Edel is admitted to the medical floor in stable condition In order to treat her Pseudomonas urinary tract infection, and work with physical therapy regarding her acute on chronic debility. She is described as normally pseudo- independent with her activities of daily living, able to ambulate all around the house, until the last several days with frequent falls as above. It is my hope that definitive treatment for the urinary tract infection will improve her functional status, I did discuss with her daughter that this may or may not Prove to be the case. an order has been placed to change out the Ramirez catheter tomorrow after she has had a couple of doses of Zosyn. Case management 's consult did given the fact that she is a hospice patient, or was until tonight. Will provide further some dramatic supportive and diagnostic cares as the current workup, or changes in her clinical scenario indicate. The plan of care was discussed with her daughter at the bedside at the time of my evaluation and she expressed understanding gratitude and a desire to proceed. She remains DO NOT RESUSCITATE status. Examination was performed using telemedicine equipment with the assistance of the bedside nurse. DVT Prophylaxis: SCD's Resuscitation Status: Do Not Resuscitate - Physician Narrative Physician: Jolene Box MD, Amara Perez MD Narrative: Date: 04/29/17 Time: Noon See history of present illness subsequently dictated 05/09/17 Hospital Course Summary Disclaimer: The visit summary below is not to be considered part of the above Progress Note.
[2017-05-08] MEDS: PIPERACILLIN/TAZOBACTAM 3.375 GM in NS 100 ML IV SCH (23:14)
[2017-05-09] MEDS: PIPERACILLIN/TAZOBACTAM 3.375 GM in NS 100 ML IV SCH ×5 (02:32→20:12)
[2017-05-09] MEDS: LEVOTHYROXINE 50 MCG TABLET PO SCH (07:20)
[2017-05-09] MEDS: NS 1,000 ML IV SCH ×3 (08:29→23:03)
[2017-05-09] MEDS: MIDODRINE 5 MG PO SCH ×3 (08:30→20:07)
[2017-05-09] MEDS: MEMANTINE 10 MG TABLET PO SCH ×2 (08:30→20:07)
[2017-05-09] MEDS: --POM--CLOPIDOGREL 75 MG TABLET PO SCH (08:30)
[2017-05-09] MEDS: --POM--AMIODARONE 200 MG TABLET PO SCH (08:30)
[2017-05-09] MEDS ORDERED: ASPIRIN 81 MG CHEWABLE TABLET PO SCH (09:00)
[2017-05-09] MEDS: ASPIRIN *EC* 81 MG TABLET PO SCH (10:24)
--- NOTE | 2017-05-09 12:39 | History & Physical Report ---
History of Present Illness Date: 05/09/17 Chief complaint: weakness HPI: Edel is a pleasant 87 Year old female patient of Dr. Cevallos who is on home hospice due to advanced dementia. She has in-home caregivers. Her daughter lives in the area but is a dock attendant so is frequently out of town. 3 days ago, Edel had not emergency department visit after a fall. She was hydrated, begun on Omnicef for a urinary tract infection; she had previously been on Bactrim per verbal report of Dr. Caballero. CT of her head at that time was negative. She was discharged home, but weakness has persisted; her daughter is not available today but advised the emergency room yesterday evening that the patient has been bedridden with worsening weakness since the ER evaluation. She was reevaluated yesterday evening due to weakness and it was discovered that UC was growing Pseudomonas with intermediate resistance to cefepime, likely resistant to Omnicef. The emergency provider discussed with her daughter, who favored admission for definitive treatment of urinary tract infection, in hopes of restoring her to her baseline physical level of functioning. The patient is unable to provide any history reporting that she feels fine and wants to go home but indicates it's raining too bad to leave school right now. Her daughter is not available and caregivers are not at the bedside. Patient denies feeling weak or having fever. Review of Systems ROS unobtainable: due to mental status Past Medical History Patient Stated Medical History Cerebrovascular Accident Yes: 5 YEARS AGO Dementia Yes Syncope Yes Other Cardiology Yes: SEVERE AORTIC STENOSIS, LEFT ARM BLOOD CLOT Diabetes Mellitus Type 2 Yes Other GI Yes: constipation Hx Incontinence Yes Hx Renal Disease Yes Hx Urinary Tract Infection Yes: frequent Clotting Problems Yes: l arm Osteoarthritis Yes Sepsis Yes Now No Medical History Updates: CAD with 2 stents this year: one in October, one on 01/24. Severe Aortic Stenosis. Dementia. LUE DVT. DM controlled on diet and [place]. Paroxysmal atrial fibrillation. Orthostatic hypertension. 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 Hypothyroidism. Paroxysmal atrial fibrillation Surgical History: Cardiac caths. Lap briseyda. KEVIN. Right TKA. B/L cataracts. colonoscopies Family History: Father-tuberculosis, mother chronic kidney disease; both Family History Updates: As above - Social History Smoking status: Never smoker Substance use type: does not use Alcohol intake frequency: does not drink Current residence: [facility] (at home) Social history: PCP- Ada, daughter DPOA DO NOT RESUSCITATE Medications Home Medications Medication Instructions Recorded Confirmed Type Multivit-Min/FA/Lycopen/Lutein 1 tab PO DAILY #0 03/31/16 05/08/17 History [Centrum Silver Tablet] Levothyroxine Sodium 50 mcg PO ACB #0 06/29/16 05/08/17 History Aspirin 81 mg PO DAILY 10/14/16 05/08/17 History Clopidogrel [Plavix] 75 mg PO DAILY 11/14/16 05/08/17 History Amiodarone [Pacerone] 100 mg PO DAILY 05/05/17 05/08/17 History Memantine HCl [Namenda Xr] 28 mg PO DAILY 05/05/17 05/08/17 History Sitagliptin Phos/Metformin HCl 1 tab PO DAILY 05/05/17 05/08/17 History [Janumet 50-500 mg Tablet] Cyanocobalamin (Vitamin B-12) 2,500 mcg SL DAILY 05/08/17 05/08/17 History [B-12] Midodrine [Proamatine] 5 mg PO TID 05/08/17 05/08/17 History Allergies Allergy/AdvReac Type Severity Reaction Status Date / Time lisinopril Allergy Severe Airway Verified 05/08/17 19:15 Obstruction Exam Vital Signs: Temperature 97.8 F 05/09/17 07:43 Pulse Rate 65 05/09/17 07:43 Respiratory Rate 18 05/09/17 07:43 Blood Pressure 102/58 05/09/17 07:43 Pulse Oximetry 95 05/09/17 07:43 NAD, pleasantly confused, oriented to name only; 97.8 102/58 Conjugate gaze, EOMI, conjunctiva clear, sclera anicteric, oropharynx clear, tongue deviates to the right Neck supple without adenopathy Respirations nonlabored, fair airflow, breath sounds clear Regular rhythm, harsh 3/6 systolic murmur right upper sternal border Abdomen soft, nontender, no suprapubic tenderness, diminished bowel sounds Extremities without edema Sensation intact to light touch 4 extremities, moves all extremities spontaneously, no drift upper extremities Degenerative changes and small joints of the hands Calm, cooperative Height/Weight/BMI: Weight 64.1 kg Results - Labs CBC & Chem 7: 05/08/17 19:39 05/08/17 19:39 Labs: Accu-Cheks 95-172 today UA-positive nitrite, +3 leukocyte esterase, 30-50 WBCs CRP < 5, lactic acid 1.7, procalcitonin < 0.05 Microbiology Results: Urine culture with Pseudomonas > 100,000 intermediate sensitivity to cefepime and Cipro, sensitive to gentamicin, tobramycin, Zosyn Assessment and Plan (1) Recurrent UTI Problem details: failed outpt therapy; recurrent Current visit: No Status: Resolved (2) Nonrheumatic aortic valve stenosis Current visit: No Status: Chronic Assessment and Plan: Impression: Partially treated UTI versus chronic colonization Advanced dementia Weakness Ambulatory dysfunction with recent fall Aortic stenosis, critical Hypothyroidism History hypertension Orthostatic hypertension Plan: Zosyn initiated overnight and will be continued pending further data. Patient does not have fever, leukocytosis, suprapubic tenderness, or elevated inflammatory markers/lactic acid/procalcitonin to suggest significant infection however delirium was described recently in the outpatient setting and persistent weakness since her fall. Given critical aortic stenosis weakness may be due to multiple factors and fall likewise has multiple explanations. Patient receiving low-volume fluids and improvement that she experiences while hospitalized may be related more to hydration then IV antibiotics however we'll continue antibiotics at this point until daughter or caregiver is available for further history/clarification of response to treatment. PT evaluation. - Physician Narrative Narrative: Date: 05/09/17 Time: 1235 Hospital Course Summary Disclaimer: The visit summary below is not to be considered part of the above Progress Note.
[2017-05-10] MEDS: PIPERACILLIN/TAZOBACTAM 3.375 GM in NS 100 ML IV SCH ×4 (03:26→20:11)
[2017-05-10] MEDS: NS 1,000 ML IV SCH (07:20)
[2017-05-10] MEDS: LEVOTHYROXINE 50 MCG TABLET PO SCH (07:47)
[2017-05-10] MEDS: MEMANTINE 10 MG TABLET PO SCH ×2 (08:55→20:50)
[2017-05-10] MEDS: --POM--CLOPIDOGREL 75 MG TABLET PO SCH (08:55)
[2017-05-10] MEDS: --POM--AMIODARONE 200 MG TABLET PO SCH (08:55)
[2017-05-10] MEDS: MIDODRINE 5 MG PO SCH ×3 (08:55→20:12)
[2017-05-10] MEDS: ASPIRIN *EC* 81 MG TABLET PO SCH (08:56)
[2017-05-10] MEDS ORDERED: FLUCONAZOLE 150 MG TABLET PO ONE (10:49)
--- NOTE | 2017-05-10 10:55 | Progress Note ---
- Date 05/10/17 Subjective: No new events overnight. Still not feeling well, not eating much, sleeping much of the time. Awakens briefly for me and then goes back to sleep. Mumbling but not answering questions. Objective Vital signs: Temperature 98.7 F 05/10/17 07:35 Pulse Rate 73 05/10/17 07:35 Respiratory Rate 16 05/10/17 07:35 Blood Pressure 116/62 05/10/17 07:35 Pulse Oximetry 96 05/10/17 07:35 Height/Weight/BMI: Weight 65.6 kg - Constitutional Present: no acute distress, cooperative - Routine HEENT Exam Head: Present: normocephalic, atraumatic Eye: Present: PERRL. Absent: conjunctival icterus ENT: Present: mucous membranes moist, oropharynx clear - Routine Respiratory Exam Present: decreased breath sounds. Absent: rhonchi, wheezes, crackles - Routine Cardiovascular Exam Present: RRR - Routine Abdominal Exam Present: soft, non distended, non tender - Routine Extremities Exam Present: pulses intact. Absent: edema - Routine Skin Exam Present: dry, warm. Absent: rash - Routine Neurological Exam Present: altered mental status - Routine Psychiatric Exam Present: unable to assess Results - Labs CBC & Chem 7: 05/08/17 19:39 05/10/17 04:02 Assessment and Plan Assessment and Plan: Impression: Partially treated UTI versus chronic colonization Advanced dementia Weakness Ambulatory dysfunction with recent fall Aortic stenosis, critical Hypothyroidism History hypertension Orthostatic hypertension Hypernatremia Anemia; normocytic, Hb 11.9 Yeast on urinalysis; unclear if contaminant or infection Plan: Zosyn initiated and will be continued pending further data; culture pending. Will give a dose of diflucan x 1 as well. Alison mental status not clear but certainly has underlying dementia likely exacerbated by UTI. Patient does not have fever, leukocytosis, suprapubic tenderness, or elevated inflammatory markers/lactic acid/procalcitonin to suggest significant infection however delirium was described recently in the outpatient setting and persistent weakness since her fall. Given critical aortic stenosis weakness may be due to multiple factors and fall likewise has multiple explanations. Patient receiving low-volume fluids and improvement that she experiences while hospitalized may be related more to hydration then IV antibiotics however we'll continue antibiotics at this point until daughter or caregiver is available for further history/clarification of response to treatment. PT evaluation pending. Will await culture results, decrease fluid rate and change to hypotonic fluids and monitor volume status closely with known . Resuscitation Status: Do Not Resuscitate - Physician Narrative Physician: Faina Vuong MD Narrative: Date: 05/10/17 Time: 1052 Hospital Course Summary Disclaimer: The visit summary below is not to be considered part of the above Progress Note. Hospital Course: 05/10/17 Chart reviewed, patient seen. Advanced dementia. Urine with budding yeast as well as presumptive bacterial UTI; cultures pending. On zosyn currently, has had resistant UTI in the past. Will add a dose of diflucan for treatment of yeast given debility. Change to 1/2NS @ 75 ml/hour given developing hypernatremia with poor po intake. Continue supportive care.
[2017-05-10] MEDS: 1/2 NS 1,000 ML IV SCH (10:57)
[2017-05-11] MEDS: 1/2 NS 1,000 ML IV SCH ×3 (01:06→20:32)
[2017-05-11] MEDS: PIPERACILLIN/TAZOBACTAM 3.375 GM in NS 100 ML IV SCH ×4 (01:10→20:59)
[2017-05-11] MEDS: LEVOTHYROXINE 50 MCG TABLET PO SCH (05:29)
[2017-05-11] MEDS: --POM--CLOPIDOGREL 75 MG TABLET PO SCH (09:30)
[2017-05-11] MEDS: ASPIRIN *EC* 81 MG TABLET PO SCH (09:30)
[2017-05-11] MEDS: MEMANTINE 10 MG TABLET PO SCH ×2 (09:30→21:15)
[2017-05-11] MEDS: MIDODRINE 5 MG PO SCH ×3 (09:30→21:01)
[2017-05-11] MEDS: --POM--AMIODARONE 200 MG TABLET PO SCH (09:30)
--- NOTE | 2017-05-11 10:52 | Progress Note ---
- Date 05/11/17 Subjective: Feeling a little better today, more easily awakened. Not getting OOB. Still very confused, tells me she lives with mommy and daddy (both ). No fevers overnight. Urine culture resulted + pseudomonas and resistent to cipro; sensitive only to gent/tobra/zosyn. She continues on IV zosyn currently. Objective Vital signs: Temperature 98.7 F 05/11/17 07:40 Pulse Rate 68 05/11/17 07:40 Respiratory Rate 20 05/11/17 07:40 Blood Pressure 115/65 05/11/17 07:40 Pulse Oximetry 94 05/11/17 07:40 Height/Weight/BMI: Weight 63.8 kg - Constitutional Present: no acute distress, cooperative Comments: drowsy but awakens more easily today - Routine HEENT Exam Head: Present: normocephalic, atraumatic Eye: Present: PERRL. Absent: conjunctival icterus ENT: Present: mucous membranes moist, oropharynx clear - Routine Respiratory Exam Present: decreased breath sounds. Absent: rhonchi, wheezes, crackles - Routine Cardiovascular Exam Present: RRR - Routine Abdominal Exam Present: soft, non distended, non tender - Routine Extremities Exam Present: no edema, pulses intact - Routine Musculoskeletal Exam Musculoskeletal: Present: no tenderness - Routine Skin Exam Present: dry, warm. Absent: rash - Routine Neurological Exam Present: alert, altered mental status, normal speech - Routine Psychiatric Exam Present: unable to assess Results - Labs CBC & Chem 7: 05/11/17 04:44 05/11/17 04:44 Microbiology Results: Urine culture reviewed and + pseudomonas sensitive only to zosyn, gentamicin, tobramycin. Fluoroquinolone resistant. Assessment and Plan Assessment and Plan: Impression: Partially treated UTI versus chronic colonization Advanced dementia Weakness Ambulatory dysfunction with recent fall Aortic stenosis, critical Hypothyroidism History hypertension Orthostatic hypertension Hypernatremia, improving with IVF support Anemia; normocytic, Hb 10.9 Yeast on urinalysis; unclear if contaminant or infection, diflucan given x1 Plan: Continue IV zosyn, plan to complete a 7-day course due to persistent and resistant infections. Monitor mental status; delirium starting to improve with treatment of UTI and hydration although underlying dementia of course persists. Try to get up to chair today with assistance; significant fall risk. Continue IVF support with 1/2NS, decrease to 50 cc/hour. Allow po intake as tolerated (dysphagia diet). DVT Prophylaxis: SCD's, other (plavix ) Resuscitation Status: Do Not Resuscitate - Physician Narrative Narrative: Date: 05/11/17 Time: 1049 Hospital Course Summary Disclaimer: The visit summary below is not to be considered part of the above Progress Note. Hospital Course: 05/10/17 Chart reviewed, patient seen. Advanced dementia. Urine with budding yeast as well as presumptive bacterial UTI; cultures pending. On zosyn currently, has had resistant UTI in the past. Will add a dose of diflucan for treatment of yeast given debility. Change to 1/2NS @ 75 ml/hour given developing hypernatremia with poor po intake. Continue supportive care. 05/11/17 Continue IV zosyn, plan to complete a 7-day course due to persistent and resistant infections (pseudomonas, fluoroquinolone resistant) Monitor mental status; delirium starting to improve with treatment of UTI and hydration although underlying dementia of course persists. Try to get up to chair today with assistance; significant fall risk. Continue IVF support with 1/2NS, decrease to 50 cc/hour. Allow po intake as tolerated (dysphagia diet).
[2017-05-11] MEDS: ACETAMINOPHEN 325 MG TABLET PO PRN (21:03)
[2017-05-12] MEDS: PIPERACILLIN/TAZOBACTAM 3.375 GM in NS 100 ML IV SCH ×4 (02:27→20:55)
[2017-05-12] MEDS: LEVOTHYROXINE 50 MCG TABLET PO SCH (05:59)
[2017-05-12] MEDS: --POM--AMIODARONE 200 MG TABLET PO SCH (10:47)
[2017-05-12] MEDS: ASPIRIN *EC* 81 MG TABLET PO SCH (10:48)
[2017-05-12] MEDS: --POM--CLOPIDOGREL 75 MG TABLET PO SCH (10:49)
[2017-05-12] MEDS: MIDODRINE 5 MG PO SCH ×3 (10:52→20:18)
[2017-05-12] MEDS: ACETAMINOPHEN 325 MG TABLET PO PRN ×2 (12:01→20:18)
[2017-05-12] MEDS: MEMANTINE 10 MG TABLET PO SCH ×2 (12:01→20:17)
--- NOTE | 2017-05-12 14:15 | Wound Care Progress Note ---
Wound Management - Patient Status Premedicated Prior to Dressing Change: No - Wound Posterior Sacrum Wound Type: Pressure Injury Wound Present on Admission?: No Wound Staging: Stage I Kelly Wound Appearance: Bright Red (Discussed with staff about off loading and to keep her off of her bottom.), Blanched/Dull Tunneling: No Undermining: No Drainage Amount: None Drainage Odor: No Odor Dressing Status: Changed
--- NOTE | 2017-05-12 17:12 | Progress Note ---
- Date 05/12/17 Subjective: JOHNY is sleeping comfortably. Her daughter, Mariajose, is also present and stated that JOHNY has been more confused today, weaker, and more tired. She did eat fairly good at mealtime so far today. Mariajose states that she always gets delirious with UTIs but this time she fell twice and Mariajose is scared of her hitting her head or fracturing a hip. She was under the impression that hospice would be agreeable to treating UTI -- the problem is that her sensitivities only show IV antibiotics, which is considered "aggressive treatment". She is hopeful that JOHNY will be able to be discharged home in a few days. Objective Vital signs: Temperature 98.1 F 05/12/17 15:00 Pulse Rate 65 05/12/17 15:00 Respiratory Rate 14 05/12/17 15:00 Blood Pressure 106/56 05/12/17 15:00 Pulse Oximetry 95 05/12/17 15:00 Height/Weight/BMI: Weight 63.2 kg - Constitutional Present: no acute distress - Routine HEENT Exam Head: Present: normocephalic - Routine Respiratory Exam Present: CTA bilaterally - Routine Cardiovascular Exam Present: RRR, S1, S2, murmur - Routine Abdominal Exam Present: soft, normoactive bowel sounds, non distended - Routine Extremities Exam Present: no edema, pulses intact - Routine Skin Exam Present: intact, dry, warm - Routine Neurological Exam Absent: alert - Routine Psychiatric Exam Present: unable to assess Results - Labs CBC & Chem 7: 05/12/17 05:33 05/12/17 05:33 Assessment and Plan (1) Recurrent UTI Problem details: failed outpt therapy; recurrent Current visit: No Status: Resolved (2) Nonrheumatic aortic valve stenosis Current visit: No Status: Chronic Assessment and Plan: Impression: Partially treated UTI versus chronic colonization with pseudomonas Advanced dementia Weakness Ambulatory dysfunction with recent fall Aortic stenosis, critical Hypothyroidism History hypertension Orthostatic hypertension Hypernatremia, improving with IVF support Anemia; normocytic, Hb 10.9 Yeast on urinalysis; unclear if contaminant or infection, Diflucan given x1 Plan: Continue IV zosyn (day #4), plan to complete a 7-day course due to persistent and resistant infections. Poor fluid intake today -- will continue IVF. Encourage activity -- Mariajose would like to see JJ getting out of bed and walking more before going back home. BGM under good control, though had a reading >200 after lunch (she drank a Mighty Shake). DVT Prophylaxis: SCD's Resuscitation Status: Do Not Resuscitate - Physician Narrative Physician: Jolene Box MD Narrative: Date: 05/12/17 Time: 2039 I have independently evaluated and examined this patient. I reviewed the chart, the patient's history, and the CARRIER OPERATOR/PA's documented findings as above. We discussed and formulated the assessment and plan as above with additions as below: Mrs. La seen with her daughter. Patient had no concerns denied dyspnea or pain. Mariajose noted swelling of the left hand and nursing will clarify status of her IV. Pleasantly confused, awake, NAD Respirations nonlabored, decreased airflow but breath sounds clear Abdomen benign Urine culture this admission again demonstrated Pseudomonas as well as true prior to hospitalization. Recheck UA in 1-2 days. Chemistries been consistently stable. Do not believe the need to be checked daily. Hospital Course Summary Disclaimer: The visit summary below is not to be considered part of the above Progress Note. Hospital Course: 05/10/17 Chart reviewed, patient seen. Advanced dementia. Urine with budding yeast as well as presumptive bacterial UTI; cultures pending. On zosyn currently, has had resistant UTI in the past. Will add a dose of diflucan for treatment of yeast given debility. Change to 1/2NS @ 75 ml/hour given developing hypernatremia with poor po intake. Continue supportive care. 05/11/17 Continue IV zosyn, plan to complete a 7-day course due to persistent and resistant infections (pseudomonas, fluoroquinolone resistant) Monitor mental status; delirium starting to improve with treatment of UTI and hydration although underlying dementia of course persists. Continue IVF support with 1/2NS, decrease to 50 cc/hour. Allow po intake as tolerated (dysphagia diet). 05/12/17 Continue IV zosyn (day #4), plan to complete a 7-day course due to persistent and resistant infections. Poor fluid intake today -- will continue IVF. BGM under good control, though had a reading >200 after lunch (she drank a Mighty Shake).
[2017-05-12] MEDS: 1/2 NS 1,000 ML IV SCH (20:20)
[2017-05-13] MEDS: LEVOTHYROXINE 50 MCG TABLET PO SCH (07:44)
[2017-05-13] MEDS: PIPERACILLIN/TAZOBACTAM 3.375 GM in NS 100 ML IV SCH ×4 (10:03→22:19)
[2017-05-13] MEDS: MEMANTINE 10 MG TABLET PO SCH ×2 (10:10→22:21)
[2017-05-13] MEDS: MIDODRINE 5 MG PO SCH ×4 (10:10→22:27)
[2017-05-13] MEDS: --POM--CLOPIDOGREL 75 MG TABLET PO SCH (10:11)
[2017-05-13] MEDS: ASPIRIN *EC* 81 MG TABLET PO SCH (10:11)
[2017-05-13] MEDS: --POM--AMIODARONE 200 MG TABLET PO SCH (10:11)
--- NOTE | 2017-05-13 17:23 | Progress Note ---
- Date 05/13/17 Subjective: Patient is seen lying in bed. Her daughter is present. Her daughter gives all of the history. She reports she has been sleeping more. She thinks she is worse now than what she was before she came in. Patient has been refusing meals and refusing PT. Daughter reports at home she eats well and walks around the house. Patient opens her eyes during exam. She does respond to yes and no questions to her daughter. She drinks water with her daughter's encouragement. Objective Vital signs: Temperature 95.8 F L 05/13/17 16:10 Pulse Rate 66 05/13/17 16:10 Respiratory Rate 16 05/13/17 16:10 Blood Pressure 121/66 05/13/17 16:10 Pulse Oximetry 99 05/13/17 16:10 Height/Weight/BMI: Weight 63.1 kg - Constitutional Present: no acute distress, well nourished, well developed - Routine HEENT Exam Head: Present: normocephalic, atraumatic - Routine Respiratory Exam Present: CTA bilaterally. Absent: wheezes - Routine Cardiovascular Exam Present: RRR, no murmur - Routine Abdominal Exam Present: soft, non distended, non tender - Routine Extremities Exam Present: no edema, normal capillary refill - Routine Skin Exam Present: dry, warm - Routine Neurological Exam Present: alert - Routine Lymphatic Exam Lymphatic: Absent: adenopathy - Routine Psychiatric Exam Present: cooperative Results - Labs CBC & Chem 7: 05/12/17 05:33 05/12/17 05:33 Assessment and Plan (1) Nonrheumatic aortic valve stenosis Current visit: No Status: Chronic (2) Recurrent UTI Problem details: failed outpt therapy; recurrent Current visit: No Status: Resolved Assessment and Plan: Impression: Partially treated UTI versus chronic colonization with pseudomonas Advanced dementia Weakness Ambulatory dysfunction with recent fall Aortic stenosis, critical Hypothyroidism History hypertension Orthostatic hypertension Hypernatremia, improving with IVF support Anemia; normocytic, Hb 10.9 Yeast on urinalysis; unclear if contaminant or infection, Diflucan given x1 Plan: Continue IV zosyn (day #5), plan to complete a 7-day course due to persistent and resistant infections. Poor fluid intake today --IV fluids were discontinued this morning. May need resume fluids if she continues to refuse P.O. Encourage activity. Dr Box discussed with pt's daughter that refusing to eat/drink can be a terminal sign in dementia, but daughter is insistent that pt eats regularly at home and does not feel she is terminal. In review of pt's weight from previous visits, she is down 5 kg in 6 mos. Plan is to DC pt after completing her 7 day course of atbx. DVT Prophylaxis: SCD's Resuscitation Status: Do Not Resuscitate - Physician Narrative Physician: Jolene Box MD Narrative: Date: 05/13/17 Time: 1854 Mrs. La was seen earlier in the day at which time she reported "I'm going to live". She was drowsy but denied dyspnea, nausea, or pain. She reported that she would eat later when I asked about her poor oral intake. Patient is drowsy and did not wish to be disturbed Respirations nonlabored with good airflow, breath sounds clear Abdomen soft, nontender, diminished bowel sounds Add methenamine with Vit C to minimize risk of recurrent infections. Typically on Janumet, blood sugars rarely above 200 and with poor oral intake will continue to hold. Hospital Course Summary Disclaimer: The visit summary below is not to be considered part of the above Progress Note. Hospital Course: 05/10/17 Chart reviewed, patient seen. Advanced dementia. Urine with budding yeast as well as presumptive bacterial UTI; cultures pending. On zosyn currently, has had resistant UTI in the past. Will add a dose of diflucan for treatment of yeast given debility. Change to 1/2NS @ 75 ml/hour given developing hypernatremia with poor po intake. Continue supportive care. 05/11/17 Continue IV zosyn, plan to complete a 7-day course due to persistent and resistant infections (pseudomonas, fluoroquinolone resistant) Monitor mental status; delirium starting to improve with treatment of UTI and hydration although underlying dementia of course persists. Continue IVF support with 1/2NS, decrease to 50 cc/hour. Allow po intake as tolerated (dysphagia diet). 05/12/17 Continue IV zosyn (day #4), plan to complete a 7-day course due to persistent and resistant infections. Poor fluid intake today -- will continue IVF. BGM under good control, though had a reading >200 after lunch (she drank a Mighty Shake). 05/13/17 Continue IV zosyn (day #5)- plan to DC after finishing 7 days of Zosyn Refusing PT and not taking po well.
[2017-05-13] MEDS: SALINE FLUSH 10ml SYRINGE IVF PRN (22:19)
[2017-05-13] MEDS: METHENAMINE HIPPURATE 1 GM TABLET PO SCH ×2 (22:20→22:26)
[2017-05-13] MEDS: ASCORBIC ACID 500 MG TABLET PO SCH ×2 (22:20→22:27)
[2017-05-13] MEDS: 1/2 NS 1,000 ML IV SCH (23:09)
[2017-05-14] MEDS: PIPERACILLIN/TAZOBACTAM 3.375 GM in NS 100 ML IV SCH ×4 (01:16→20:26)
[2017-05-14] MEDS: LEVOTHYROXINE 50 MCG TABLET PO SCH (06:34)
[2017-05-14] MEDS: MIDODRINE 5 MG PO SCH ×3 (08:22→20:27)
[2017-05-14] MEDS: ASCORBIC ACID 500 MG TABLET PO SCH ×2 (08:22→20:27)
[2017-05-14] MEDS: CLOPIDOGREL 75 MG TABLET PO SCH (08:22)
[2017-05-14] MEDS: ASPIRIN *EC* 81 MG TABLET PO SCH (08:22)
[2017-05-14] MEDS: AMIODARONE 200 MG TABLET PO SCH (08:23)
[2017-05-14] MEDS: METHENAMINE HIPPURATE 1 GM TABLET PO SCH ×2 (08:24→20:27)
[2017-05-14] MEDS: MEMANTINE 10 MG TABLET PO SCH ×2 (08:24→20:27)
--- NOTE | 2017-05-14 11:41 | Progress Note ---
- Date 05/14/17 Subjective: Patient is seen during her bath this morning. She keeps her eyes closed during most of the exam. When asked, she denies having any pain, shortness of breath, nausea or vomiting. She's not been eating well for staff, but she will drink and eat when her daughter is here. Objective Vital signs: Temperature 98.0 F 05/14/17 08:00 Pulse Rate 63 05/14/17 08:00 Respiratory Rate 16 05/14/17 08:00 Blood Pressure 105/57 05/14/17 08:00 Pulse Oximetry 99 05/14/17 08:00 Height/Weight/BMI: Weight 63.1 kg - Constitutional Present: no acute distress, well nourished, well developed - Routine HEENT Exam Head: Present: normocephalic, atraumatic - Routine Respiratory Exam Present: CTA bilaterally. Absent: wheezes - Routine Cardiovascular Exam Present: RRR, no murmur - Routine Abdominal Exam Present: soft, non distended, non tender - Routine Extremities Exam Present: no edema, normal capillary refill - Routine Skin Exam Present: dry, warm - Routine Neurological Exam Present: moving all extremities. Absent: alert - Routine Lymphatic Exam Lymphatic: Absent: adenopathy - Routine Psychiatric Exam Present: normal affect (drowsy), cooperative Results - Labs CBC & Chem 7: 05/12/17 05:33 05/14/17 03:55 Assessment and Plan (1) Nonrheumatic aortic valve stenosis Current visit: No Status: Chronic (2) Recurrent UTI Problem details: failed outpt therapy; recurrent Current visit: No Status: Resolved Assessment and Plan: Impression: Partially treated UTI versus chronic colonization with pseudomonas Advanced dementia Weakness Ambulatory dysfunction with recent fall Aortic stenosis, critical Hypothyroidism History hypertension Orthostatic hypertension Hypernatremia, improving with IVF support Anemia; normocytic, Hb 10.9 Yeast on urinalysis; unclear if contaminant or infection, Diflucan given x1 Plan: Continue IV zosyn (day #6), plan to complete a 7-day course due to persistent and resistant infections. Potassium is low today (3.3), replaced. She ate 50% of her breakfast this morning. No current IV fluids. Plan is to DC home with caregivers and hospice after completing her 7 day course of atbx. DVT Prophylaxis: SCD's Resuscitation Status: Do Not Resuscitate - Physician Narrative Physician: Jolene Box MD Narrative: Date: 05/14/17 Time: 1714 Mrs. La was sleeping when I saw her earlier today. She awoke to voice and reported that she didn't want anything and would may being later. She denied nausea or pain and curled up and went back to sleep as soon as I stopped speaking with her. NAD, drowsy/sleeping Respirations nonlabored with decreased airflow but breath sounds are clear Abdomen is soft and nontender Complete current course of antibiotics; recorded oral intake remains poor. Recheck potassium in a.m. after supplementation today. Anticipate discharge home 05/16 after completing 1 week of Zosyn. Hospital Course Summary Disclaimer: The visit summary below is not to be considered part of the above Progress Note. Hospital Course: 05/10/17 Chart reviewed, patient seen. Advanced dementia. Urine with budding yeast as well as presumptive bacterial UTI; cultures pending. On zosyn currently, has had resistant UTI in the past. Will add a dose of diflucan for treatment of yeast given debility. Change to 1/2NS @ 75 ml/hour given developing hypernatremia with poor po intake. Continue supportive care. 05/11/17 Continue IV zosyn, plan to complete a 7-day course due to persistent and resistant infections (pseudomonas, fluoroquinolone resistant) Monitor mental status; delirium starting to improve with treatment of UTI and hydration although underlying dementia of course persists. Continue IVF support with 1/2NS, decrease to 50 cc/hour. Allow po intake as tolerated (dysphagia diet). 05/12/17 Continue IV zosyn (day #4), plan to complete a 7-day course due to persistent and resistant infections. Poor fluid intake today -- will continue IVF. BGM under good control, though had a reading >200 after lunch (she drank a Mighty Shake). 05/13/17 Continue IV zosyn (day #5)- plan to DC after finishing 7 days of Zosyn Refusing PT and not taking po well. 05/14/17 Continue IV zosyn (day #6), plan to complete a 7-day course due to persistent and resistant infections. Potassium is low today (3.3), replaced. She ate 50% of her breakfast this morning. No current IV fluids. Plan is to DC home with caregivers and hospice after completing her 7 day course of atbx.
[2017-05-14] MEDS: SALINE FLUSH 10ml SYRINGE IVF PRN (20:28)
[2017-05-14] MEDS: ACETAMINOPHEN 325 MG TABLET PO PRN (22:14)
[2017-05-15] MEDS: PIPERACILLIN/TAZOBACTAM 3.375 GM in NS 100 ML IV SCH ×4 (01:45→21:32)
[2017-05-15] MEDS: ACETAMINOPHEN 325 MG TABLET PO PRN ×3 (04:52→21:34)
[2017-05-15] MEDS: LEVOTHYROXINE 50 MCG TABLET PO SCH (06:46)
[2017-05-15] MEDS: CLOPIDOGREL 75 MG TABLET PO SCH (08:57)
[2017-05-15] MEDS: AMIODARONE 200 MG TABLET PO SCH (08:57)
[2017-05-15] MEDS: ASCORBIC ACID 500 MG TABLET PO SCH ×2 (08:57→21:34)
[2017-05-15] MEDS: MEMANTINE 10 MG TABLET PO SCH ×2 (08:57→21:35)
[2017-05-15] MEDS: ASPIRIN *EC* 81 MG TABLET PO SCH (08:57)
[2017-05-15] MEDS: METHENAMINE HIPPURATE 1 GM TABLET PO SCH ×2 (08:57→21:34)
[2017-05-15] MEDS: MIDODRINE 5 MG PO SCH (08:57)
--- NOTE | 2017-05-15 09:05 | Progress Note ---
- Date 05/15/17 Subjective: JOHNY was sleeping initially, but woke up easily with a smile. She complained that "my back hurts so bad" (she has chronic LBP). Usually Tylenol relieves her discomfort - she had some around 0500 ; I alerted [facility] staff and they are going to reposition her in bed. JOHNY otherwise denied any acute concerns ie chest pain, SOA, abd pain, n/v. She's not sure if Mariajose is still in town or not. Objective Vital signs: Temperature 98.5 F 05/15/17 07:28 Pulse Rate 62 05/15/17 07:28 Respiratory Rate 20 05/15/17 07:28 Blood Pressure 94/58 05/15/17 07:28 Pulse Oximetry 97 05/15/17 07:28 Height/Weight/BMI: Weight 62.5 kg - Constitutional Present: no acute distress, well nourished, well developed - Routine HEENT Exam Head: Present: normocephalic ENT: Present: mucous membranes dry - Routine Respiratory Exam Present: CTA bilaterally - Routine Cardiovascular Exam Present: RRR, S1, S2, murmur - Routine Abdominal Exam Present: soft, normoactive bowel sounds, non distended, non tender - Routine Exam Comments: Ramirez to DD; clear pale yellow colored urine in bag - Routine Extremities Exam Present: no edema, pulses intact - Routine Musculoskeletal Exam Musculoskeletal: Present: no clubbing or cyanosis - Routine Skin Exam Present: intact, dry, warm - Routine Neurological Exam Present: alert - Routine Psychiatric Exam Present: normal affect, cooperative Results - Labs CBC & Chem 7: 05/12/17 05:33 05/15/17 04:42 Assessment and Plan (1) Nonrheumatic aortic valve stenosis Current visit: No Status: Chronic (2) Recurrent UTI Problem details: failed outpt therapy; recurrent Current visit: No Status: Resolved Assessment and Plan: Impression: Partially treated UTI versus chronic colonization with pseudomonas Advanced dementia Weakness Ambulatory dysfunction with recent fall Aortic stenosis, critical Hypothyroidism History hypertension Orthostatic hypertension Hypernatremia, improving with IVF support Anemia; normocytic, Hb 10.9 Yeast on urinalysis; unclear if contaminant or infection, Diflucan given x1 Plan: Continue IV zosyn (day #7), plan to complete a 7-day course due to persistent and resistant infections. Last dose will be late this evening. K improved to 4.0 Continue pain control; minimize narcotics as able. Plan is to DC home with caregivers and hospice after completing her 7 day course of abx. DVT Prophylaxis: SCD's Resuscitation Status: Do Not Resuscitate - Time spent with patient Time with patient PN: 25 minutes - Physician Narrative Physician: Sunny Mesa MD Narrative: Date: 05/15/17 Time: 1627 Have independently interviewed and examined pt. Chart reviewed. Case discussed with CM and my DENTAL SURGERY DOCTOR. Care plan developed with my supervision; agree with above. Resting in bed, but easily awakened. Reports room feels cold, she feels cold. Feels her appetite is improving. No nausea. Breathing okay-some cough at times. Lungs: Clear bilaterally, no distress CV: regular with murmur AB: soft nt MSE : awake alert, pleasant to visit with. Not restless or agitated. Plan: Continue with Zosyn for urinary coverage. With course completed later in day, discussed with her home care providers about discharge. They were anticipating her discharge tomorrow-have no one available to care for her tonight. Will plan discharge for tomorrow if patient continues to do well-no save discharge available today. Hospital Course Summary Disclaimer: The visit summary below is not to be considered part of the above Progress Note. Hospital Course: 05/08/17 Edel is admitted to the medical floor in stable condition In order to treat her Pseudomonas urinary tract infection, and work with physical therapy regarding her acute on chronic debility. She is described as normally pseudo- independent with her activities of daily living, able to ambulate all around the house, until the last several days with frequent falls as above. It is my hope that definitive treatment for the urinary tract infection will improve her functional status, I did discuss with her daughter that this may or may not Prove to be the case. an order has been placed to change out the Ramirez catheter tomorrow after she has had a couple of doses of Zosyn. Case management 's consult did given the fact that she is a hospice patient, or was until tonight. Will provide further some dramatic supportive and diagnostic cares as the current workup, or changes in her clinical scenario indicate. The plan of care was discussed with her daughter at the bedside at the time of my evaluation and she expressed understanding gratitude and a desire to proceed. She remains DO NOT RESUSCITATE status. 1/19/18 Zosyn initiated overnight and will be continued pending further data. Patient does not have fever, leukocytosis, suprapubic tenderness, or elevated inflammatory markers/lactic acid/procalcitonin to suggest significant infection however delirium was described recently in the outpatient setting and persistent weakness since her fall. Given critical aortic stenosis weakness may be due to multiple factors and fall likewise has multiple explanations. Patient receiving low-volume fluids and improvement that she experiences while hospitalized may be related more to hydration then IV antibiotics however we'll continue antibiotics at this point until daughter or caregiver is available for further history/clarification of response to treatment. PT evaluation. 05/10/17 Chart reviewed, patient seen. Advanced dementia. Urine with budding yeast as well as presumptive bacterial UTI; cultures pending. On Zosyn currently, has had resistant UTI in the past. Will add a dose of Diflucan for treatment of yeast given debility. Change to 1/2NS @ 75 ml/hour given developing hypernatremia with poor po intake. Continue supportive care. 05/11/17 Continue IV Zosyn, plan to complete a 7-day course due to persistent and resistant infections (pseudomonas, fluoroquinolone resistant) Monitor mental status; delirium starting to improve with treatment of UTI and hydration although underlying dementia of course persists. Continue IVF support with 1/2NS, decrease to 50 cc/hour. Allow po intake as tolerated (dysphagia diet). 05/12/17 Continue IV Zosyn (day #4), plan to complete a 7-day course due to persistent and resistant infections. Poor fluid intake today -- will continue IVF. BGM under good control, though had a reading >200 after lunch (she drank a Mighty Shake). 05/13/17 Continue IV Zosyn (day #5)- plan to DC after finishing 7 days of Zosyn. Refusing PT and not taking po well. 05/14/17 Continue IV Zosyn (day #6), plan to complete a 7-day course due to persistent and resistant infections. Potassium is low today (3.3), replaced. She ate 50% of her breakfast this morning. No current IV fluids. 05/15/17 Continue IV Zosyn (day #7), plan to complete a 7-day course due to persistent and resistant infections. Last dose will be late this evening. K improved to 4.0 Continue pain control; minimize narcotics as able. Plan is to DC home with caregivers and hospice after completing her 7 day course of abx. With course of Zosyn completed later in day, discussed with her home care providers about discharge. They were anticipating her discharge tomorrow-have no one available to care for her tonight. Will plan discharge for tomorrow if patient continues to do well-no save discharge available today.
[2017-05-15] MEDS: MIDODRINE 5 MG TABLET PO SCH (16:27)
[2017-05-16] MEDS: PIPERACILLIN/TAZOBACTAM 3.375 GM in NS 100 ML IV SCH (02:38)
[2017-05-16] MEDS: LEVOTHYROXINE 50 MCG TABLET PO SCH ×2 (07:44→09:47)
[2017-05-16 08:47] VITALS: BP 106/59; PULSE 63; RESP 18; TEMP 97.7; O2SAT 96
[2017-05-16] MEDS ORDERED: PIPERACILLIN/TAZOBACTAM 2.25 GM in NS 50 ML IV SCH (09:00)
--- NOTE | 2017-05-16 09:33 | Discharge Summary ---
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 Cevallos who is on home hospice due to advanced dementia. She has in-home caregivers. Her daughter lives in the area but is a ramp flight attendant so is frequently out of town. 3 days ago, Edel had not emergency department visit after a fall. She was hydrated, begun on Omnicef for a urinary tract infection; she had previously been on Bactrim per verbal report of Dr. Caballero. CT of her head at that time was negative. She was discharged home, but weakness has persisted; her daughter is not available today but advised the emergency room yesterday evening that the patient has been bedridden with worsening weakness since the ER evaluation. She was reevaluated yesterday evening due to weakness and it was discovered that UC was growing Pseudomonas with intermediate resistance to cefepime, likely resistant to Omnicef. The emergency provider discussed with her daughter, who favored admission for definitive treatment of urinary tract infection, in hopes of restoring her to her baseline physical level of functioning. The patient is unable to provide any history reporting that she feels fine and wants to go home but indicates it's raining too bad to leave school right now. Her daughter is not available and caregivers are not at the bedside. Patient denies feeling weak or having fever. Objective Vital signs: Temperature 97.7 F 05/16/17 08:00 Pulse Rate 63 05/16/17 08:00 Respiratory Rate 18 05/16/17 08:00 Blood Pressure 106/59 05/16/17 08:00 Pulse Oximetry 96 05/16/17 08:00 Height/Weight/BMI: Weight 62.1 kg - Constitutional Present: no acute distress, well nourished, well developed - Routine HEENT Exam Head: Present: normocephalic Eye: Present: PERRL. Absent: conjunctival icterus, scleral injection ENT: Present: mucous membranes moist, oropharynx clear - Routine Respiratory Exam Present: CTA bilaterally - Routine Cardiovascular Exam Present: RRR, S1, S2, murmur - Routine Abdominal Exam Present: soft, normoactive bowel sounds, non distended, non tender - Routine Extremities Exam Present: no edema, pulses intact - Routine Skin Exam Present: intact, dry, warm - Routine Neurological Exam Present: alert. Absent: oriented X3 (at baseline) - Routine Psychiatric Exam Present: normal affect, normal thought process, cooperative Hospital Course This is a general summary of the patient's hospital course. For more details refer to the complete medical record. Hospital course: Mrs. La was admitted on 05/08/17 for Pseudomonas urinary tract infection, and to work with physical therapy regarding her acute on chronic debility. Zosyn was started for UTI. Her chronic Ramirez catheter was changed on 05/09/17. Patient does not have fever, leukocytosis, suprapubic tenderness, or elevated inflammatory markers/lactic acid/procalcitonin to suggest significant infection however delirium was described recently in the outpatient setting IVF were provided until her oral intake was maintained. Janumet was held throughout the course of hospitalization and BG were under good control. PT consulted but she refused to work with them occasionally. We added methenamine with Vit C to minimize risk of recurrent infections. Potassium was low on 05/14/17 and returned to normal after oral replacement. She completed her 7-day course of Zosyn late on 05/15/17 and was discharged home in stable condition on 05/16/17. Daughter plans on resuming hospice and she has caregivers lined up to help Mrs. La while she's unavailable. The patient did not understand these dc instructions d/t dementia but daughter Mariajose and caregivers were in agreement. F/U with Dr. Caballero in 1 week; consider discontinuing Janumet. Voice message was left with Mariajose regarding the Janumet and methenamine Rx's. Dr. Caballero was updated as well. Time spent with patient: discharge greater than 30 minutes Resuscitation Status: Do Not Resuscitate Discharge Plan - Discharge Disposition Discharge Date: 05/16/17 Disposition: Discharged Home, Self-Care *Condition: Stable Reason For Visit (Visit label in EMR): UTI, weakness - Discharge Medications *Discharge Medications: New Ascorbic Acid [Vitamin C] 500 mg PO BID tab Methenamine Hippurate [Hiprex] 1 gm PO BID #60 tab Continue Multivit-Min/FA/Lycopen/Lutein [Centrum Silver Tablet] 1 tab PO DAILY #0 Levothyroxine Sodium 50 mcg PO ACB #0 Amiodarone [Pacerone] 100 mg PO DAILY Memantine HCl [Namenda Xr] 28 mg PO DAILY Midodrine [Proamatine] 5 mg PO TID Cyanocobalamin (Vitamin B-12) [B-12] 2,500 mcg SL DAILY Aspirin 81 mg PO DAILY Clopidogrel [Plavix] 75 mg PO DAILY Sitagliptin Phos/Metformin HCl [Janumet 50-500 mg Tablet] 1 tab PO DAILY - Discharge Packet/Instructions *Diet: Consistent carbohydrate, pureed food. Consider holding diabetic medication if appetite is poor - discuss further with Dr. Caballero. *Activity: She is at risk for falling; please assist her with standing and walking. Use the walker. Resume Ramirez care. This was changed on 05/09/17. *Pain Management/Treatment: Tylenol if needed. *Wound Care: Continue providing good skin care to prevent breakdown. *Expected Signs/Symptoms: She may feel weak/fatigued from the illness and hospital stay. She may have intermittent periods of confusion or drowsiness as she continues to recover. *Notify Physician if: Fever, change in mental status, difficulty breathing, uncontrolled pain, vomiting or diarrhea, or fall with suspected serious injury. *During Business Hours Contact: Dr. Caballero's office. *After Business Hours Contact: The on-call provider for Dr. Caballero. *Pending Lab/Results: No Pending Lab - Referrals/Follow Up *Referrals/Follow Up: Colleen Caballeor MD [Family Provider] - 1 Week - Patient Handouts Patient Handouts: Urinary Tract Infection in Women (GEN) - Dismissal Complete Discharge Instructions are:: Complete Physician Narrative - Narrative Physician: Sunny Mesa MD Attestation Narrative: Date: 05/16/17 Time: 1200 I have independently interviewed and examined prior to discharge. Case discussed with CM and my ACCOUNTS SPECIALIST. Care plan developed with my supervision; agree with above. Doing well this morning. Sitting up in chair. Awake, converses. Breathing well. No nausea. Lungs: decreased, no distress CV: regular with murmur. Ab: soft nt/nd MSE: awake, alert; not agitated or restless Plan: Will discharge to home. Antibiotics completed. See orders for details. Medically stable for discharge to home.
[2017-05-16] MEDS: ASPIRIN *EC* 81 MG TABLET PO SCH (09:47)
[2017-05-16] MEDS: AMIODARONE 200 MG TABLET PO SCH (09:48)
[2017-05-16] MEDS: ASCORBIC ACID 500 MG TABLET PO SCH (09:48)
[2017-05-16] MEDS: METHENAMINE HIPPURATE 1 GM TABLET PO SCH (09:48)
[2017-05-16] MEDS: MIDODRINE 5 MG TABLET PO SCH ×2 (09:49→14:05)
[2017-05-16] MEDS: CLOPIDOGREL 75 MG TABLET PO SCH (09:50)
[2017-05-16] MEDS: MEMANTINE 10 MG TABLET PO SCH (10:07)
== END 2017-05-16 13:12 | disposition home or self-care (01) | DRG 690 ==
LOC: ED 18:30 → MED 18:30 → SUATTDRO 22:01 → MED 22:15 → SUATTDRO 05-10 16:35
PROVIDERS: ADMIT Internal Medicine; ATTEND Hospitalist

== ENCOUNTER 2017-08-15 15:08 | Inpatient (IN) ==
--- NOTE | 2017-08-15 15:19 | Emergency Department Report ---
Altered Mental Status HPI - General Stated Complaint: Weakness, Hallucinations Possible Sepsis W/UTI Time Seen by Provider: 08/15/17 15:11 Source: patient, RN notes reviewed, old records reviewed Mode of arrival: ambulatory Limitations: altered mental status - History of Present Illness HPI narrative: 87yo woman presented to the ER by EMS for evaluation of weakness and hallucinations. Pt has a documented UTI; has only gotten 1x macrobid. Pt has an indwelling ortiz catheter. MD complaint: altered mental status Onset (ago): hour(s) Timing confirmed by: family member Severity: similar to previous episodes Consistency of symptoms: constant - Related Data Home Medications Medication Instructions Recorded Confirmed Ascorbate Calcium [Vitamin C] 1,000 mg PO DAILY 08/15/17 08/15/17 Aspirin [Aspirin EC] 81 mg PO DAILY 08/15/17 08/15/17 Clopidogrel [Plavix] 75 mg PO DAILY 08/15/17 08/15/17 Cyanocobalamin (Vitamin B-12) 5,000 mcg SL DAILY 08/15/17 08/15/17 [B-12] Docusate Sodium [Colace] 100 mg PO DAILY 08/15/17 08/15/17 Levothyroxine Sodium 50 mcg PO ACB 08/15/17 08/15/17 Memantine HCl [Namenda Xr] 28 mg PO DAILY 08/15/17 08/15/17 Midodrine [Proamatine] 5 mg PO TID 08/15/17 08/15/17 Multivit-Min/FA/Lycopen/Lutein 1 tab PO DAILY 08/15/17 08/15/17 [Centrum Silver Tablet] Sitagliptin Phos/Metformin HCl 1 tab PO BID 08/15/17 08/15/17 [Janumet 50-500 mg Tablet] Sulfamethoxazole/Trimethoprim 1 tab PO BID 08/15/17 08/15/17 [Bactrim Ds Tablet] Allergies Allergy/AdvReac Type Severity Reaction Status Date / Time No Known Allergies Allergy Verified 08/15/17 16:14 Review of Systems All systems: reviewed and negative except as stated Constitutional: Reports: as per HPI, weakness. Denies: fever, chills, weight change, night sweats Psychiatric: Reports: as per HPI, visual hallucinations. Denies: anxiety, depression, suicidal thoughts, homicidal thoughts, auditory hallucinations Physical Exam - Limitations Limitations: altered mental status - General General appearance: lethargic - Normal Exams: Head:: Normocephalic without trauma Eyes:: Pupils are PERRLA w/ EOMI, No scleral icterus, irritation, or foreign bodies noted ENMT:: No facial trauma, nasal exudates, pharyngeal erythema, or exudates are noted Neck:: Full range of motion, without adenopathy Lymphatic:: No lymphadenopathy Musculoskeletal:: No tenderness, or deformity noted Integumentary:: No rashes, hives - Chest Chest inspection: Present: normal inspection, symmetric chest wall rise. Absent : tenderness, rash - Respiratory Respiratory exam: Present: normal lung sounds bilaterally. Absent: respiratory distress, wheezes, stridor, prolonged expiratory phase, crackles - Cardiovascular Cardiovascular exam: Present: regular rate, normal rhythm, normal heart sounds. Absent: rubs, gallop, clicks - Abdominal Exam Abdominal exam: Present: soft, normal bowel sounds. Absent: distention, tenderness, guarding, rebound, rigidity - Neurological Exam Neurological exam: Present: CN II-XII intact, reflexes normal. Absent: alert, oriented X3 - Psychiatric Psychiatric exam: Present: flat affect Course - Consultations Consultation #1: Hospitalist: Will accept for admission for further treatment of catheter associated UTI. Time: 16:41 Altered Mental Status - [facility] Narrative Medical decision making narrative: Pt with catheter associated UTI. Pt's labs do not reflect sepsis, however pts mental status is c/w prior admission for UTI (different than pts baseline). Contacted hospitalist for admission for further treatment. Pt accepted for obs. - Differential Diagnosis Likely: altered mental status, delirium, hyponatremia, sepsis - Medical Records Attestation: I reviewed the patient's medical records. - Lab Data Attestation: I reviewed the patient's lab results. Result diagrams: 08/15/17 15:10 08/15/17 15:31 Disposition Clinical Impression: Catheter-associated urinary tract infection Qualifiers: Indwelling urinary catheter type: indwelling urethral catheter Encounter type: subsequent encounter Qualified Code(s): T83.511D - Infection and inflammatory reaction due to indwelling urethral catheter, subsequent encounter; N39.0 - Urinary tract infection, site not specified Disposition: 02 To OBS [facility] [place] Print Language: Urdu Condition: Stable Prescriptions: No Action Ascorbate Calcium [Vitamin C] 1,000 mg PO DAILY Sitagliptin Phos/Metformin HCl [Janumet 50-500 mg Tablet] 1 tab PO BID Memantine HCl [Namenda Xr] 28 mg PO DAILY Cyanocobalamin (Vitamin B-12) [B-12] 5,000 mcg SL DAILY Multivit-Min/FA/Lycopen/Lutein [Centrum Silver Tablet] 1 tab PO DAILY Clopidogrel [Plavix] 75 mg PO DAILY Sulfamethoxazole/Trimethoprim [Bactrim Ds Tablet] 1 tab PO BID Midodrine [Proamatine] 5 mg PO TID Levothyroxine Sodium 50 mcg PO ACB Docusate Sodium [Colace] 100 mg PO DAILY Aspirin [Aspirin EC] 81 mg PO DAILY Referrals: Colleen Caballero MD [Primary Care Provider] - Time of Disposition: 17:10 - Seen By: physician
[2017-08-15] MEDS ORDERED: CEFEPIME 1 GM in NS 100 ML IV ONE (15:23)
[2017-08-15] MEDS ORDERED: NS 1,000 ML IV ONE (15:23)
[2017-08-15] MEDS: NS FLUSH BAG 500ml IV PRN (15:38)
[2017-08-15] MEDS ORDERED: ACETAMINOPHEN 650 MG SUPPOSITORY PR PRN (19:04)
--- NOTE | 2017-08-15 19:26 | History & Physical Report ---
History of Present Illness Date: 08/15/17 Chief complaint: sepsis, UTI, altered mental status HPI: Naseem La (Joann) is a pleasant 87-year-old female patient of Dr. Caballero with a history of frequent UTI and chronic indwelling Ortiz catheter since 02/2017. On 07/28/17 she was believed to have a UTI and was started on Keflex by Dr. Caballero. Culture from the urine revealed Ruchi albicans and the Keflex was discontinued. Over the next week or so, the daughter who is Ms. La's primary toddler caregiver and DPOA, became concerned that her urine was more cloudy than usual. Per the daughter, she was seen in the clinic on/around 08/06/17 and reassured that the cloudy urine was normal for patient's with indwelling Ortiz catheters and it was unlikely that she had a UTI as she had recently been treated with Keflex and she was asymptomatic. Family reports that no UA was collected at that time. Since then, family reports that she has had progressive generalized weakness with increased fatigue. Family reports that she is usually very active, alert and lively. On 08/14/17, Ms. La began running a fever with sweating, decreased appetite and reported hallucinations while at home. Her daughter also reported a very strong foul odor from her urine. She called her home health nurse who obtained a urine sample on 08/14/17 which revealed a UTI. Dr. Caballero initiated treatment with Bactrim and the urine was sent for culture. Family reports that the patient was able to take her Bactrim last night and this morning. Family reports that this morning, she had increased lethargy with worsening generalized weakness. The home health nurse was called and came to the house to assess the patient at which time it was noted that in addition to her altered level of consciousness, she was also tachycardic with borderline low blood pressure and febrile. Family reports that the patient always has low blood pressure (average of 100/65) and takes midodrine daily). Dr. Caballero encouraged the patient to be evaluated in the ED. Upon arrival to the ED, Ms. La was tachycardiac (heart rate 108) with a blood pressure of 95/54. Labs were obtained and were relatively unremarkable. UA revealed 20-30 WBC with 1+ bacteria. Family states that her indwelling ortiz catheter was changed by the home health nurse prior arrival. The urine culture from the UA on 08/14/17 obtained by [facility] is revealing early growth with gram negative rods. She was given 1L NS and started on cefepime 1g IV for empiric coverage of suspected urinary pathogens. Lactate was 1.7. Due to her apparent sepsis secondary to UTI as indicated by her tachycardia, hypotension, reported fever and altered mental status, Dr. Martinez was consulted and she was accepted into inpatient status for IV antibiotics, close monitoring of hemodynamic stability, IV fluids and continued care. Her length of stay is expected to exceed more than 2 over nights. Review of Systems ROS unobtainable: due to mental status - Constitutional Constitutional: Present: fatigue, fever(s), lethargy, weakness - EENMT Eyes: Absent: photophobia Balance: Absent: vertigo Nose: Absent: nosebleeds Mouth/Throat: Present: dry mouth. Absent: changes in swallowing - Cardiovascular Cardiovascular: Absent: chest pain, palpitations, syncope Vascular: Absent: pedal edema - Respiratory Respiratory: Absent: cough, dyspnea - Gastrointestinal Gastrointestinal: Present: constipation. Absent: diarrhea, nausea, vomiting - Genitourinary Genitourinary: Present: other (indwelling Ortiz catheter.) Menstruation: post hysterectomy - Musculoskeletal Musculoskeletal: Present: muscle weakness. Absent: deformity - Integumentary/Breasts Integumentary: Absent: rash - Neurological Neurological: Present: weakness. Absent: focal weakness - Psychiatric Psychiatric: Present: hallucinations - Endocrine Endocrine: Absent: palpitations - Hematologic/Lymphatic Hematologic/Lymphatic: Absent: easy bruising - Allergic/Immunologic Allergic/Immunologic: Absent: seasonal rhinorrhea Past Medical History Medical History Updates: History of CVA - 2011. Dementia. Severe aortic stenosis. History of DVT to left arm. Diabetes mellitus, type 2. Constipation. Chronic kidney disease, stage III. CAD. Hypothyroidism. A- fib. History of frequent UTIs. Osteoarthritis. Indwelling Ortiz catheter - . Surgical History: Stent placement x 2 - 10/2016, 01/2017. Heart caths. Cholecystectomy. Right total knee replacement. Hysterectomy. Bilateral cataract extraction. Colonscopies. Family History Updates: Father - , COPD, questionable TB. Mother - , chronic kidney disease. Aunt - , colon cancer. Family History: As Above - Social History Smoking status: Never smoker Substance use type: does not use Alcohol intake frequency: does not drink Housing: house Household members: family (daughter who is primary caregiver) Current occupational status: retired Does patient use chewing tobacco?: No Current residence: Apartment/Private Home Social history: PCP - Dr. Caballero. Medications Home Medications Medication Instructions Recorded Confirmed Type Ascorbate Calcium [Vitamin C] 1,000 mg PO DAILY 08/15/17 08/15/17 History Aspirin [Aspirin EC] 81 mg PO DAILY 08/15/17 08/15/17 History Clopidogrel [Plavix] 75 mg PO DAILY 08/15/17 08/15/17 History Cyanocobalamin (Vitamin B-12) 5,000 mcg SL DAILY 08/15/17 08/15/17 History [B-12] Docusate Sodium [Colace] 100 mg PO DAILY 08/15/17 08/15/17 History Levothyroxine Sodium 50 mcg PO ACB 08/15/17 08/15/17 History Memantine HCl [Namenda Xr] 28 mg PO DAILY 08/15/17 08/15/17 History Midodrine [Proamatine] 5 mg PO TID 08/15/17 08/15/17 History Multivit-Min/FA/Lycopen/Lutein 1 tab PO DAILY 08/15/17 08/15/17 History [Centrum Silver Tablet] Sitagliptin Phos/Metformin HCl 1 tab PO BID 08/15/17 08/15/17 History [Janumet 50-500 mg Tablet] Sulfamethoxazole/Trimethoprim 1 tab PO BID 08/15/17 08/15/17 History [Bactrim Ds Tablet] Allergies Allergy/AdvReac Type Severity Reaction Status Date / Time No Known Allergies Allergy Verified 08/15/17 16:14 Exam Vital Signs: Temperature 97.4 F 08/15/17 15:08 Pulse Rate 67 08/15/17 17:30 Respiratory Rate 16 08/15/17 17:30 Blood Pressure 87/52 08/15/17 17:30 Pulse Oximetry 96 08/15/17 17:30 Comments: Patient seen while in ED #3 with daughter at the bedside. Patient arouses briefly with voice stimuli but quickly falls back to sleep. - Constitutional Present: no acute distress, well nourished, well developed, cooperative - Routine HEENT Exam Head: Present: normocephalic, atraumatic Eye: Present: PERRL. Absent: conjunctival icterus ENT: Present: mucous membranes dry, oropharynx clear Comments: Missing dentition. - Routine Neck Exam Present: supple, trachea midline - Routine Chest/Breast/Axilla Exam Chest wall: Absent: pacemaker - Routine Respiratory Exam Present: CTA bilaterally. Absent: respiratory distress, wheezes - Routine Cardiovascular Exam Present: S1, S2, murmur, irregularly irregular - Routine Abdominal Exam Present: soft, normoactive bowel sounds, distended - Routine Exam Comments: Ortiz catheter present and actively draining urine. - Routine Back/Spine/Pelvis Exam Comments: Limited exam due to patient's decreased level of consciousness. - Routine Skin Exam Present: intact, dry, warm Comments: Afebrile. - Routine Neurological Exam Present: hearing grossly intact, normal speech Lethargic; arouses briefly with voice stimuli. - Routine Psychiatric Exam Present: cooperative Results - Labs CBC & Chem 7: 08/15/17 15:10 08/15/17 15:31 Assessment and Plan Assessment and Plan: Assessment: Sepsis secondary to UTI as indicated by tachycardia, fever, altered level of consciousness and hypotension. Altered level of consciousness. Generalized weakness and debility. Indwelling Ortiz catheter - since 02/2017 - changed 08/15/17. History of CVA - 2011. Dementia. Severe aortic stenosis. History of DVT to left arm. Diabetes mellitus, type 2. Constipation. Chronic kidney disease, stage III. CAD. Hypothyroidism. A-fib. History of frequent UTIs. Osteoarthritis. History of CVA - 2011. Plan - 08/15/17: [facility] under the care of Dr. Martinez. 1L NS initiated in ED. Will continue NS 100cc/hr for hydration. Cefepime 1g IV given in ED. Continue empiric coverage for urinary pathogens with Cefepime IV Q6H. UA culture from 08/14/17 revealing gram negative rods. Monitor for sensitives and new UA culture results. Blood culture obtained and results pending. Monitor closely on telemetry. Continue home medications. Monitor blood pressure closely. Monitor daily weight and urinary output closely for signs of fluid overload. Renal function stable. Upon discharge, patient's care will be returned to PCP. Patient is a DNR. DVT Prophylaxis: SCD's Resuscitation Status: Do Not Resuscitate - Time spent with patient Time with patient PN: 70 minutes - Physician Narrative Physician: Libby Martinez MD Narrative: Date: 08/15/17 Time: 1939 The patient was independently interviewed and examined by me. She's quite somnolent this evening. I did speak with her daughter in detail about what's been going on with mom. She does take care of mom frequently and this is her usual presentation of the urinary tract infection. The patient is to somnolent actually get a reasonable review of systems from when seen by me. Physical Exam: General: appears comfortable and in NAD, drowsy, she does open eyes to voice. Skin: warm and dry HEENT: NC/AT PERRL, EOMI, Sclera, lids and conjunctiva wnl. Dry MM. OP clear. Neck: No JVD, Carotids 2+ with murmur that is heard radiating to bilateral carotids. Lungs: diminished. clear. No rales, rhonchi or wheezes CV: irregular. 2/6 DARIN radiates to carotids Abd: soft. +BS. NT/ND MS: No edema. Good strength and ROM Neuro: Not testable due to somnolence Psych: drowsy Pt has indwelling catheter I have reviewed the patient's notes, labs and imaging. Patient was discussed with family. I have independently examined the patient and documented my findings. The assessment and plan was developed in conjunction with Kimberly ARSHAD. I agree with assessment and plan Sepsis Assessment - Evaluation SIRS Criteria: pulse > 90 beats/minute Severe Sepsis: hypotension (SBP <90 or MAP <65 x2 readings) Hospital Course Summary Disclaimer: The visit summary below is not to be considered part of the above Progress Note. Hospital Course: Plan - 08/15/17: [facility] under the care of Dr. Martinez. 1L NS initiated in ED. Will continue NS 100cc/hr for hydration. Cefepime 1g IV given in ED. Continue empiric coverage for urinary pathogens with Cefepime IV Q6H. UA culture from 08/14/17 revealing gram negative rods. Monitor for sensitives and new UA culture results. Blood culture obtained and results pending. Monitor closely on telemetry. Continue home medications. Monitor blood pressure closely. Monitor daily weight and urinary output closely for signs of fluid overload. Renal function stable. Upon discharge, patient's care will be returned to PCP. Patient is a DNR.
[2017-08-15] MEDS ORDERED: [UNRECOGNIZED DRUG - OTHER] PO SCH (21:00)
[2017-08-15] MEDS ORDERED: METFORMIN HCL PO SCH (21:00)
[2017-08-15] MEDS ORDERED: SITAGLIPTIN PHOS PO SCH (21:00)
[2017-08-15] MEDS: CEFEPIME 1 GM in NS 100 ML IV SCH (21:13)
[2017-08-15] MEDS: NS 1,000 ML IV SCH (21:13)
[2017-08-15] MEDS: MIDODRINE 5 MG PO SCH (23:19)
[2017-08-16] MEDS: NS 1,000 ML IV SCH ×4 (04:03→16:27)
[2017-08-16] MEDS: CEFEPIME 1 GM in NS 100 ML IV SCH ×4 (04:46→21:10)
[2017-08-16] MEDS: --POM--LEVOTHYROXINE 50 MCG TABLET PO SCH (06:04)
[2017-08-16] MEDS: DOCUSATE SODIUM 100 MG CAPSULE PO SCH (08:31)
[2017-08-16] MEDS: ASPIRIN *EC* 81 MG TABLET PO SCH (08:31)
[2017-08-16] MEDS: MIDODRINE 5 MG PO SCH ×3 (08:31→21:11)
[2017-08-16] MEDS ORDERED: CYANOCOBALAMIN 5000 MCG SL SCH (09:00)
[2017-08-16] MEDS ORDERED: CYANOCOBALAMIN (B-12) 500mcg TABLET PO SCH (09:00)
[2017-08-16] MEDS ORDERED: --POM--CLOPIDOGREL 75 MG TABLET PO SCH (09:00)
[2017-08-16] MEDS ORDERED: MEMANTINE HCL 28 MG PO SCH (09:00)
[2017-08-16] MEDS: MEMANTINE 10 MG TABLET PO SCH ×2 (09:25→21:11)
--- NOTE | 2017-08-16 12:15 | Progress Note ---
- Date 08/16/17 Subjective: Naseem La (Joann) is a pleasant 87-year-old female patient of Dr. Caballero with a history of frequent UTI and chronic indwelling Ortiz catheter since 02/2017. On 07/28/17 she was believed to have a UTI and was started on Keflex by Dr. Caballero. Culture from the urine revealed Ruchi albicans and the Keflex was discontinued. Over the next week or so, the daughter who is Ms. La's primary home care manager and DPOA, became concerned that her urine was more cloudy than usual. Per the daughter, she was seen in the clinic on/around 08/06/17 and reassured that the cloudy urine was normal for patient's with indwelling Ortiz catheters and it was unlikely that she had a UTI as she had recently been treated with Keflex and she was asymptomatic. Family reports that no UA was collected at that time. Since then, family reports that she has had progressive generalized weakness with increased fatigue. Family reports that she is usually very active, alert and lively. On 08/14/17, Ms. La began running a fever with sweating, decreased appetite and reported hallucinations while at home. Her daughter also reported a very strong foul odor from her urine. She called her home health nurse who obtained a urine sample on 08/14/17 which revealed a UTI. Dr. Caballero initiated treatment with Bactrim and the urine was sent for culture. Family reports that the patient was able to take her Bactrim the night prior to admission and again the morning of admission. Family reports that on the morning of admission, the pt had increased lethargy with worsening generalized weakness. The home health nurse was called and came to the house to assess the patient at which time it was noted that in addition to her altered level of consciousness, she was also tachycardic with borderline low blood pressure and febrile. Family reports that the patient always has low blood pressure (average of 100/65) and takes midodrine daily). Dr. Caballero encouraged the patient to be evaluated in the ED. Upon arrival to the ED, Ms. La was tachycardiac (heart rate 108) with a blood pressure of 95/54. Labs were obtained and were relatively unremarkable. UA revealed 20-30 WBC with 1+ bacteria. Family states that her indwelling ortiz catheter was changed by the home health nurse prior arrival. The urine culture from the UA on 08/14/17 obtained by [facility] is revealing early growth with gram negative rods. She was given 1L NS and started on cefepime 1g IV for empiric coverage of suspected urinary pathogens. Lactate was 1.7. Due to her apparent sepsis secondary to UTI as indicated by her tachycardia, hypotension, reported fever and altered mental status, Dr. Martinez was consulted and she was accepted into inpatient status for IV antibiotics, close monitoring of hemodynamic stability, IV fluids and continued care. Her length of stay is expected to exceed more than 2 over nights. When seen by me this morning, there is no family in the room. The patient was sleeping but awakens easily. She reported not feeling well but when asked for specifics all she could come up with was being tired. He denies any pain anywhere except some mild back discomfort. She denies feeling short of breath. She denied nausea. She denies abdominal pain. Objective Vital signs: Temperature 99.3 F 08/16/17 11:55 Pulse Rate 84 08/16/17 11:55 Respiratory Rate 12 08/16/17 11:55 Blood Pressure 108/64 08/16/17 11:55 Pulse Oximetry 96 08/16/17 11:55 Height/Weight/BMI: Height 1.65 m Weight 64.6 kg Body Mass Index 23.3 Comments: General: appears comfortable and in NAD Skin: warm and dry HEENT: NC/AT PERRL, EOMI, Sclera, lids and conjunctiva wnl. Dry MM. OP clear. Neck: No JVD, Carotids 2+ with murmur that is heard radiating to bilateral carotids. Lungs: diminished. clear. No rales, rhonchi or wheezes CV: irregular. 2/6 DARIN radiates to carotids Abd: soft. +BS. NT/ND MS: No edema. Good strength and ROM Neuro: No focal deficit Psych: appropriate Pt has indwelling catheter Results - Labs CBC & Chem 7: 08/15/17 15:10 08/15/17 15:31 Assessment and Plan Assessment and Plan: Assessment/Plan: Sepsis secondary to UTI as indicated by tachycardia, fever, altered level of consciousness and hypotension. -IVF -Repeat lactate UTI -Recurrent, frequent -Indwelling ortiz- since 02/2017 - changed 08/15/17. -On cefepime -Bl cx pending -Urine cx pending from 08/15, the one done on 08/14 growing E. coli sensitive to cefepime Altered level of consciousness. -This is usual for her when she gets an UTI per daughter -She does have underlying dementia Generalized weakness and debility. -Due to UTI -consult PT PAF -Not on OAC History of CVA - 2011. -On aspirin and plavix Dementia. -On NamendaXr Hypothyroid -continue levothyroxine -Last free T4 1.84 in November 2016 Severe aortic stenosis. -SKYE 0.7cm2 per HC 08/2016 Orthostatic hypotension -Continue midodrine History of DVT to left arm. -S/P Mechanical clot removal Diabetes mellitus, type 2. -Continue Janumet -Last A1C I can find was in november 2016 and was 5.3% Constipation. -On colace daily H/O Chronic kidney disease, stage III. -Creatinine normal here and I do not see any elevations in recent history CAD -H/O stents 2016 -HC 08/2016 showing LVEF 65%, SKYE 0.7cm2, 70-80% LAD, 30% LCx, 70-75% RCA -CHRIS to RCA 09/2016 -CHRIS to LAD 01/2017 Hypothyroidism. -Continue levothyroxine Osteoarthritis. Upon discharge, patient's care will be returned to Dr. Caballero PCP. Patient is a DNR. - Physician Narrative Narrative: Date: 08/16/17 Time: 1210 Hospital Course Summary Disclaimer: The visit summary below is not to be considered part of the above Progress Note. Hospital Course: Plan - 08/15/17: [facility] to [facility] under the care of Dr. Martinez. 1L NS initiated in ED. Will continue NS 100cc/hr for hydration. Cefepime 1g IV given in ED. Continue empiric coverage for urinary pathogens with Cefepime IV Q6H. UA culture from 08/14/17 revealing gram negative rods. Monitor for sensitives and new UA culture results. Blood culture obtained and results pending. Monitor closely on telemetry. Continue home medications. Monitor blood pressure closely. Monitor daily weight and urinary output closely for signs of fluid overload. Renal function stable. Upon discharge, patient's care will be returned to PCP. Patient is a DNR.
[2017-08-16] MEDS: ACETAMINOPHEN 325 MG TABLET PO PRN (17:53)
[2017-08-17] MEDS: NS 1,000 ML IV SCH ×3 (00:25→21:48)
[2017-08-17] MEDS: CEFEPIME 1 GM in NS 100 ML IV SCH ×4 (02:51→20:40)
[2017-08-17] MEDS: ENOXAPARIN 40 MG/0.4 ML INJECTION SQ SCH ×2 (03:59→08:59)
[2017-08-17] MEDS: --POM--LEVOTHYROXINE 50 MCG TABLET PO SCH (05:58)
[2017-08-17] MEDS: MIDODRINE 5 MG PO SCH (08:59)
[2017-08-17] MEDS: ASPIRIN *EC* 81 MG TABLET PO SCH (08:59)
[2017-08-17] MEDS ORDERED: CYANOCOBALAMIN PO SCH (09:00)
[2017-08-17] MEDS: CLOPIDOGREL 75 MG TABLET PO SCH (09:00)
[2017-08-17] MEDS: CYANOCOBALAMIN (B-12) 1,000mcg/ml INJECTION IM SCH (09:00)
[2017-08-17] MEDS: MEMANTINE 10 MG TABLET PO SCH ×2 (09:00→20:16)
[2017-08-17] MEDS: DOCUSATE SODIUM 100 MG CAPSULE PO SCH (09:00)
[2017-08-17] MEDS: MIDODRINE 5 MG TABLET PO SCH ×3 (09:10→20:16)
--- NOTE | 2017-08-17 11:40 | Progress Note ---
- Date 08/17/17 Subjective: Naseem La (Joann) is a pleasant 87-year-old female patient of Dr. Caballero with a history of frequent UTI and chronic indwelling Ortiz catheter since 02/2017. On 07/28/17 she was believed to have a UTI and was started on Keflex by Dr. Caballero. Culture from the urine revealed Ruchi albicans and the Keflex was discontinued. Over the next week or so, the daughter who is Ms. La's primary manager critical care and DPOA, became concerned that her urine was more cloudy than usual. Per the daughter, she was seen in the clinic on/around 08/06/17 and reassured that the cloudy urine was normal for patient's with indwelling Ortiz catheters and it was unlikely that she had a UTI as she had recently been treated with Keflex and she was asymptomatic. Family reports that no UA was collected at that time. Since then, family reports that she has had progressive generalized weakness with increased fatigue. Family reports that she is usually very active, alert and lively. On 08/14/17, Ms. La began running a fever with sweating, decreased appetite and reported hallucinations while at home. Her daughter also reported a very strong foul odor from her urine. She called her home health nurse who obtained a urine sample on 08/14/17 which revealed a UTI. Dr. Caballero initiated treatment with Bactrim and the urine was sent for culture. Family reports that the patient was able to take her Bactrim the night prior to admission and again the morning of admission. Family reports that on the morning of admission, the pt had increased lethargy with worsening generalized weakness. The home health nurse was called and came to the house to assess the patient at which time it was noted that in addition to her altered level of consciousness, she was also tachycardic with borderline low blood pressure and febrile. Family reports that the patient always has low blood pressure (average of 100/65) and takes midodrine daily). Dr. Caballero encouraged the patient to be evaluated in the ED. Upon arrival to the ED, Ms. La was tachycardiac (heart rate 108) with a blood pressure of 95/54. Labs were obtained and were relatively unremarkable. UA revealed 20-30 WBC with 1+ bacteria. Family states that her indwelling ortiz catheter was changed by the home health nurse prior arrival. The urine culture from the UA on 08/14/17 obtained by [facility] is revealing early growth with gram negative rods. She was given 1L NS and started on cefepime 1g IV for empiric coverage of suspected urinary pathogens. Lactate was 1.7. Due to her apparent sepsis secondary to UTI as indicated by her tachycardia, hypotension, reported fever and altered mental status, Dr. Martinez was consulted and she was accepted into inpatient status for IV antibiotics, close monitoring of hemodynamic stability, IV fluids and continued care. Her length of stay is expected to exceed more than 2 over nights. When seen by me this morning, there is no family in the room. The patient is awake. She is not oriented to place, time/year. She reports she wants to go home. SHe "does not trust you all". SHe did known her daughters name but did not know who she lives with (which is her daughter). She denies any complaints. She is eating breakfast and states she only going to eat the oatmeal and nothing else. She did go into atrial fibrillation with slightly tacky response early this morning with a rate of 121. He does have underlying atrial fibrillation not on oral anticoagulation due to fall risk. Objective Vital signs: Temperature 98.3 F 08/17/17 07:31 Pulse Rate 97 08/17/17 09:30 Respiratory Rate 18 08/17/17 03:59 Blood Pressure 94/60 08/17/17 07:31 Pulse Oximetry 92 08/17/17 07:31 Height/Weight/BMI: Height 1.65 m Weight 64.6 kg Body Mass Index 23.3 Comments: General: Awake, oriented to name only, irritable Skin: warm and dry HEENT: NC/AT PERRL, EOMI, Sclera, lids and conjunctiva wnl. Dry MM. OP clear. Neck: No JVD, Carotids 2+ with murmur that is heard radiating to bilateral carotids. Lungs: diminished. clear. No rales, rhonchi or wheezes CV: irregular. 2/6 DARIN radiates to carotids Abd: soft. +BS. NT/ND MS: No edema. Good strength and ROM Neuro: No focal deficit Psych: appropriate Pt has indwelling catheter, her urine has cleared up Results - Labs CBC & Chem 7: 08/17/17 04:54 08/17/17 04:54 Assessment and Plan Assessment and Plan: Assessment/Plan: Sepsis secondary to UTI as indicated by tachycardia, fever, altered level of consciousness and hypotension. -IVF -Repeat lactate-normalized -Mental status improving UTI -Recurrent, frequent -Indwelling ortiz- since 02/2017 - changed 08/15/17. -On cefepime -Bl cx NGTD -Urine cx from 08/15 NGTD, the one done on 08/14 growing E. coli sensitive to cefepime Altered level of consciousness. -This is usual for her when she gets an UTI per daughter -She does have underlying dementia -This is improved today Generalized weakness and debility. -Due to UTI -consult PT PAF -Not on OAC -Metoprolol 25mg q6hr prn started by nighttime MD -With her hypotension, she may not tolerate this. -Will try low dose digoxin and monitor History of CVA - 2011. -On aspirin and plavix Dementia. -On NamendaXr Hypothyroid -continue levothyroxine -Last free T4 1.84 in November 2016 Severe aortic stenosis. -SKYE 0.7cm2 per 08/2016 Orthostatic hypotension -Continue midodrine History of DVT to left arm. -S/P Mechanical clot removal Diabetes mellitus, type 2. -Continue Janumet -Last A1C I can find was in november 2016 and was 5.3% Constipation. -On colace daily H/O Chronic kidney disease, stage III. -Creatinine normal here and I do not see any elevations in recent history CAD -H/O stents 2016 -HC 08/2016 showing LVEF 65%, SKYE 0.7cm2, 70-80% LAD, 30% LCx, 70-75% RCA -CHRIS to RCA 09/2016 -CHRIS to LAD 01/2017 Hypothyroidism. -Continue levothyroxine Osteoarthritis. Upon discharge, patient's care will be returned to Dr. Caballero PCP. Patient is a DNR. - Physician Narrative Narrative: Date: 08/17/17 Time: 1137 Hospital Course Summary Disclaimer: The visit summary below is not to be considered part of the above Progress Note. Hospital Course: Plan - 08/15/17: Admit to inwateint status under the care of Dr. Martinez. 1L NS initiated in ED. Will continue NS 100cc/hr for hydration. Cefepime 1g IV given in ED. Continue empiric coverage for urinary pathogens with Cefepime IV Q6H. UA culture from 08/14/17 revealing gram negative rods. Monitor for sensitives and new UA culture results. Blood culture obtained and results pending. Monitor closely on telemetry. Continue home medications. Monitor blood pressure closely. Monitor daily weight and urinary output closely for signs of fluid overload. Renal function stable. Upon discharge, patient's care will be returned to PCP. Patient is a DNR.
[2017-08-17] MEDS: DIGOXIN 125 MCG TABLET PO SCH (12:13)
[2017-08-18] MEDS: CEFEPIME 1 GM in NS 100 ML IV SCH ×2 (03:24→09:33)
[2017-08-18] MEDS: LEVOTHYROXINE 50 MCG TABLET PO SCH (05:39)
[2017-08-18] MEDS: NS 1,000 ML IV SCH (09:22)
[2017-08-18] MEDS: CLOPIDOGREL 75 MG TABLET PO SCH (09:23)
[2017-08-18] MEDS: DOCUSATE SODIUM 100 MG CAPSULE PO SCH (09:23)
[2017-08-18] MEDS: ASPIRIN *EC* 81 MG TABLET PO SCH (09:23)
[2017-08-18] MEDS: ENOXAPARIN 40 MG/0.4 ML INJECTION SQ SCH (09:23)
[2017-08-18] MEDS: MIDODRINE 5 MG TABLET PO SCH ×3 (09:28→16:04)
[2017-08-18] MEDS: DIGOXIN 125 MCG TABLET PO SCH (09:28)
[2017-08-18] MEDS: MEMANTINE 10 MG TABLET PO SCH ×2 (09:29→20:44)
[2017-08-18 10:37] VITALS: BMI 25.2
--- NOTE | 2017-08-18 12:06 | XRay Report ---
EXAM: XR chest 1V LOCATION OF DICTATION: [place] HISTORY: hypoxia COMPARISON: No prior studies available for comparison. FINDINGS: The heart size is normal. The mediastinal configuration is within normal limits. There are diffuse airspace opacities throughout the bilateral lungs. There is some blunting the costophrenic angles which may reflect small effusions. There is no pneumothorax. The osseous structures are within normal limits for the patient's age. IMPRESSION: Diffuse airspace opacities throughout both lungs. Probable small bilateral pleural effusions. Close interval follow-up is recommended. .
[2017-08-18] MEDS ORDERED: FUROSEMIDE 40 MG/4 ML INJECTION IVP ONE ×3 (12:16→20:00)
--- NOTE | 2017-08-18 13:06 | Progress Note ---
- Date 08/18/17 Subjective: Mrs La is seen this afternoon while resting in bed. She is currently requiring 5 liters of oxygen to maintain oxygenation. She is noted to have wet breath sounds with expiratory wheezing present. Weight is noted to be up 5 KG since admission. She briefly opens eyes during examination however does not answer any questions. Objective Vital signs: Temperature 98 F 08/18/17 11:00 Pulse Rate 94 08/18/17 11:00 Respiratory Rate 24 08/18/17 11:00 Blood Pressure 136/70 08/18/17 11:00 Pulse Oximetry 92 08/18/17 11:00 Height/Weight/BMI: Height 1.65 m Weight 68.9 kg Body Mass Index 25.2 - Constitutional Present: mild distress, well nourished, well developed - Routine HEENT Exam Eye: Present: EOMI ENT: Present: mucous membranes moist, dentition normal - Routine Respiratory Exam Present: dyspnea (mild), wheezes - Routine Cardiovascular Exam Present: RRR, S1, S2. Absent: murmur - Routine Abdominal Exam Present: soft, normoactive bowel sounds, non distended. Absent: tenderness - Routine Skin Exam Present: intact, dry, warm - Routine Neurological Exam Present: altered mental status - Routine Lymphatic Exam Lymphatic: Absent: adenopathy - Routine Psychiatric Exam Present: unable to assess Results - Labs CBC & Chem 7: 08/18/17 05:04 08/18/17 05:04 Assessment and Plan Assessment and Plan: Assessment Sepsis secondary to UTI as indicated by tachycardia, fever, altered level of consciousness and hypotension. UTI- Recurrent, frequent -- E coli growing from culture day before admission Chronic urinary retention--Indwelling ortiz- since 02/2017 - changed 08/15/17. Encephalopathy-secondary to sepsis and UTI Pulmonary edema Bilateral pleural effusions- 08/18/17 Acute hypoxic respiratory insufficiency secondary to pulmonary edema Hypernatremia- not present on admission Generalized weakness and debility- Acute due to illness Paroxysmal atrial fibrillation Severe aortic stenosis Orthostatic hypotension Diabetes mellitus, type 2 CAD H/O Chronic kidney disease, stage III. Hypothyroidism Dementia Chronic constipation Osteoarthritis Hx DVT Hx CVA- 2011 Plan Oxygen needs continue to increase. Chest X-ray this morning does revel small bilateral pleural effusions Lasix 40 mg IV x1 given this morning. IVF stopped. She may require further diuresing. Continue to monitor urinary output via Ortiz cath (chronic- changed 08/15) Trend daily weights. she is up 5 Kg from admission Urine culture is negative for growth after 2 days. Will stop IV Cefepime; changing to ceftriaxone. Continue to monitor Accu-Cheks Continue to monitor daily labs. Lovenox subcutaneous daily for DVT prophylaxis Case discussed with attending, Dr. Mesa DVT Prophylaxis: Lovenox Resuscitation Status: Do Not Resuscitate - Time spent with patient Time with patient PN: 25 minutes - Physician Narrative Physician: Sunny Mesa MD Narrative: Date: 08/18/17 Time: 1628 Have independently interviewed and examined pt. Chart reviewed. Case discussed with CM and my DIRECTOR OF COUNTERINTELLIGENCE. Care plan developed with my supervision; agree with above. Resting in bed, not wanting to waken. Oral drive decreased - Ate bites for breakfast yesterday, refused lunch, but too 100% evening meal. Minima oral intake noted today. O2 needs increasing. WBC normal. Lungs: decreased, crackles and upper airway noises present. No distress on O2. CV: regular AB: soft nt MSE: somnolent Plan: With CXR showing increase pulmonary edema, will stop IVF and initiate Lasix to help motivate fluid. 40mg Lasix given this am, will repeat 40mg this evening. Continue with supplemental O2, will work more on weaning when volume status improves. Can change cefepime to ceftriaxone for urinary coverage. Monitor lab. Hospital Course Summary Disclaimer: The visit summary below is not to be considered part of the above Progress Note. Hospital Course: [facility]. 1L NS initiated in ED. Will continue NS 100cc/hr for hydration. Cefepime 1g IV given in ED. Continue empiric coverage for urinary pathogens with Cefepime IV Q6H. UA culture from 08/14/17 revealing gram negative rods. Monitor for sensitives and new UA culture results. Blood culture obtained and results pending. Monitor closely on telemetry. Continue home medications. Monitor blood pressure closely. Monitor daily weight and urinary output closely for signs of fluid overload. Renal function stable. Upon discharge, patient's care will be returned to Dr Caballero. Patient is a DNR. 08/17/17 Sepsis secondary to UTI as indicated by tachycardia, fever, altered level of consciousness and hypotension. -IVF -Repeat lactate-normalized -Mental status improving UTI -Recurrent, frequent -Indwelling Ortiz- since 02/2017 - changed 08/15/17. -On cefepime -Bl cx NGTD -Urine cx from 08/15 NGTD, the one done on 08/14 growing E. coli sensitive to cefepime Altered level of consciousness. -This is usual for her when she gets an UTI per daughter -She does have underlying dementia -This is improved today Generalized weakness and debility. -Due to UTI -consult PT PAF -Not on OAC -Metoprolol 25mg q6hr prn started by nighttime MD -With her hypotension, she may not tolerate this. -Will try low dose digoxin and monitor History of CVA - 2011. -On aspirin and Plavix Dementia. -On Namenda XR Hypothyroid -continue levothyroxine -Last free T4 1.84 in November 2016 Severe aortic stenosis. -SKYE 0.7cm2 per 08/2016 Orthostatic hypotension -Continue midodrine History of DVT to left arm. -S/P Mechanical clot removal Diabetes mellitus, type 2. -Continue Janumet -Last A1C I can find was in november 2016 and was 5.3% Constipation. -On Colace daily H/O Chronic kidney disease, stage III. -Creatinine normal here and I do not see any elevations in recent history CAD -H/O stents 2016 -HC 08/2016 showing LVEF 65%, SKYE 0.7cm2, 70-80% LAD, 30% LCx, 70-75% RCA -CHRIS to RCA 09/2016 -CHRIS to LAD 01/2017 Hypothyroidism. -Continue levothyroxine Osteoarthritis. 08/18/17 Oxygen needs continue to increase. Chest X-ray this morning does revel small bilateral pleural effusions and pulmonary edema. Lasix 40 mg IV x1 given this morning, will give repeat 40mg IV Lasix this evening. IVF stopped. Continue to monitor urinary output via Ortiz cath (chronic- changed 08/15) Trend daily weights. she is up 5 Kg from admission Change cefepime for ceftriaxone for treatment of Ecoli UTI. Continue to monitor Accu-Cheks Recheck CBC in am due to UTI/Resolving sepsis. Will recheck BMP in am secondary to Lasix use. Lovenox subcutaneous daily for DVT prophylaxis
[2017-08-18] MEDS ORDERED: CEFEPIME 1 GM in NS 100 ML IV SCH (16:00)
[2017-08-18] MEDS: CEFTRIAXONE 1 G in NS 100 ML IV SCH (16:03)
[2017-08-18] MEDS: SALINE 0.65% NASAL SPRAY 44 ML BOTTLE EA NOSTRIL SCH ×2 (20:45→20:46)
[2017-08-18] MEDS: SALINE FLUSH 10ml SYRINGE IVF PRN (20:46)
[2017-08-18] MEDS ORDERED: DiltiaZEM 25 MG/5 ML INJECTION IVP ONE (21:55)
[2017-08-18] MEDS ORDERED: DiltiaZEM Drip 125 MG in NS 125 ML IV SCH (23:00)
[2017-08-19] MEDS: LEVOTHYROXINE 50 MCG TABLET PO SCH (06:28)
[2017-08-19] MEDS: MIDODRINE 5 MG TABLET PO SCH ×3 (08:56→19:39)
[2017-08-19] MEDS: CLOPIDOGREL 75 MG TABLET PO SCH (08:57)
[2017-08-19] MEDS: DIGOXIN 125 MCG TABLET PO SCH (08:57)
[2017-08-19] MEDS: ASPIRIN *EC* 81 MG TABLET PO SCH (08:58)
[2017-08-19] MEDS: SALINE 0.65% NASAL SPRAY 44 ML BOTTLE EA NOSTRIL SCH ×3 (08:58→19:40)
[2017-08-19] MEDS: MEMANTINE 10 MG TABLET PO SCH ×2 (08:58→21:26)
[2017-08-19] MEDS: ENOXAPARIN 40 MG/0.4 ML INJECTION SQ SCH (08:58)
[2017-08-19] MEDS: DOCUSATE SODIUM 100 MG CAPSULE PO SCH (08:58)
[2017-08-19] MEDS ORDERED: FUROSEMIDE 20 MG/2 ML INJECTION IVP ONE (10:19)
--- NOTE | 2017-08-19 10:36 | Progress Note ---
- Date 08/19/17 Subjective: F/U: Sepsis secondary to UTI, E coli UTI Developed afib with RVR overnight - transfer to CCU for diltiazem drip. HR improved with drip, BP did decrease to 80-90 systolic. Patient sleeping soundly this am, daughter at bedside. Daughter feels patient looking better than yesterday. Taking oral in better. Objective Vital signs: Temperature 98.8 F 08/19/17 08:00 Pulse Rate 82 08/19/17 10:14 Respiratory Rate 22 08/19/17 10:14 Blood Pressure 87/49 08/19/17 10:15 Pulse Oximetry 94 08/19/17 10:14 Height/Weight/BMI: Height 1.65 m Weight 65.5 kg Body Mass Index 25.2 - Constitutional Present: well nourished, well developed, average body habitus, somnolent - Routine HEENT Exam Head: Present: normocephalic, atraumatic ENT: Present: mucous membranes moist - Routine Respiratory Exam Present: decreased breath sounds. Absent: rales, respiratory distress, rhonchi , wheezes - Routine Cardiovascular Exam Present: irregular rhythm, irregularly irregular - Routine Abdominal Exam Present: soft, non distended, non tender. Absent: normoactive bowel sounds ( decreased) - Routine Exam Comments: Ortiz present - Routine Extremities Exam Present: pulses intact. Absent: cyanosis, clubbing - Routine Musculoskeletal Exam Musculoskeletal: Present: no clubbing or cyanosis - Routine Skin Exam Present: dry, warm - Routine Neurological Exam Somnolent - Routine Psychiatric Exam Comments: Somnolent Results - Labs CBC & Chem 7: 08/19/17 04:02 08/19/17 04:02 Assessment and Plan Assessment and Plan: Assessment Sepsis secondary to UTI as indicated by tachycardia, fever, altered level of consciousness and hypotension. UTI- Recurrent, frequent -- E coli growing from culture day before admission Chronic urinary retention--Indwelling ortiz- since 02/2017 - changed 08/15/17. Encephalopathy-secondary to sepsis and UTI Pulmonary edema Bilateral pleural effusions- 08/18/17 Acute hypoxic respiratory insufficiency secondary to pulmonary edema Hypernatremia- not present on admission Generalized weakness and debility- Acute due to illness Paroxysmal atrial fibrillation Developed RVR 08/18 Severe aortic stenosis Orthostatic hypotension Diabetes mellitus, type 2 CAD H/O Chronic kidney disease, stage III. Hypothyroidism Dementia Chronic constipation Osteoarthritis Hx DVT Hx CVA- 2011 Plan Transferred to CCU overnight secondary to Afib with RVR, diltiazem drip started. HR showing improvement. Will consult with Dr Vanessa for treatment recommendations for afib. Digoxin level slightly subtherapeutic at 0.7 - could be increased. Will continue with Rocephin for urinary coverage. Lasix 20mg IV x1 to help mobilize pulmonary edema. Will recheck CXR in am. Weight trending down. Output increased with Lasix yesterday. Continue with supplemental O2, weaning as able. Encourage oral intake. Recheck CMP in am secondary to medications. Will recheck CBC in am due to resolving sepsis. Case discussed with CCU nursing and patient's daughter. Time spent with patient care 35 minutes. DVT Prophylaxis: SCD's, Lovenox Resuscitation Status: Do Not Resuscitate - Time spent with patient Time with patient PN: 35 minutes - Physician Narrative Physician: Sunny Mesa MD Narrative: Date: 08/19/17 Time: 1033 Hospital Course Summary Disclaimer: The visit summary below is not to be considered part of the above Progress Note. Hospital Course: [facility]. 1L NS initiated in ED. Will continue NS 100cc/hr for hydration. Cefepime 1g IV given in ED. Continue empiric coverage for urinary pathogens with Cefepime IV Q6H. UA culture from 08/14/17 revealing gram negative rods. Monitor for sensitives and new UA culture results. Blood culture obtained and results pending. Monitor closely on telemetry. Continue home medications. Monitor blood pressure closely. Monitor daily weight and urinary output closely for signs of fluid overload. Renal function stable. Upon discharge, patient's care will be returned to Dr Caballero. Patient is a DNR. 08/17/17 Sepsis secondary to UTI as indicated by tachycardia, fever, altered level of consciousness and hypotension. -IVF -Repeat lactate-normalized -Mental status improving UTI -Recurrent, frequent -Indwelling Ortiz- since 02/2017 - changed 08/15/17. -On cefepime -Bl cx NGTD -Urine cx from 08/15 NGTD, the one done on 08/14 growing E. coli sensitive to cefepime Altered level of consciousness. -This is usual for her when she gets an UTI per daughter -She does have underlying dementia -This is improved today Generalized weakness and debility. -Due to UTI -consult PT PAF -Not on OAC -Metoprolol 25mg q6hr prn started by nighttime MD -With her hypotension, she may not tolerate this. -Will try low dose digoxin and monitor History of CVA - 2011. -On aspirin and Plavix Dementia. -On Namenda XR Hypothyroid -continue levothyroxine -Last free T4 1.84 in November 2016 Severe aortic stenosis. -SKYE 0.7cm2 per HC 08/2016 Orthostatic hypotension -Continue midodrine History of DVT to left arm. -S/P Mechanical clot removal Diabetes mellitus, type 2. -Continue Janumet -Last A1C I can find was in november 2016 and was 5.3% Constipation. -On Colace daily H/O Chronic kidney disease, stage III. -Creatinine normal here and I do not see any elevations in recent history CAD -H/O stents 2016 -HC 08/2016 showing LVEF 65%, SKYE 0.7cm2, 70-80% LAD, 30% LCx, 70-75% RCA -CHRIS to RCA 09/2016 -CHRIS to LAD 01/2017 Hypothyroidism. -Continue levothyroxine Osteoarthritis. 08/18/17 Oxygen needs continue to increase. Chest X-ray this morning does revel small bilateral pleural effusions and pulmonary edema. Lasix 40 mg IV x1 given this morning, will give repeat 40mg IV Lasix this evening. IVF stopped. Continue to monitor urinary output via Ortiz cath (chronic- changed 08/15) Trend daily weights. she is up 5 Kg from admission Change cefepime for ceftriaxone for treatment of Ecoli UTI. Continue to monitor Accu-Cheks Recheck CBC in am due to UTI/Resolving sepsis. Will recheck BMP in am secondary to Lasix use. Lovenox subcutaneous daily for DVT prophylaxis 08/19/17 Transferred to CCU overnight secondary to Afib with RVR, diltiazem drip started. HR showing improvement. Will consult with Dr Vanessa for treatment recommendations for afib. Digoxin level slightly subtherapeutic at 0.7 - could be increased. Will continue with Rocephin for urinary coverage. Lasix 20mg IV x1 to help mobilize pulmonary edema. Will recheck CXR in am. Weight trending down. Output increased with Lasix yesterday. Continue with supplemental O2, weaning as able. Encourage oral intake.
--- NOTE | 2017-08-19 11:21 | Cardiology Consult Note ---
<Sandra Guevara - Last Filed: 08/20/17 09:43> History of Present Illness Consult date: 08/19/17 Requesting physician: Sunny Mesa Consult reason: atrial fibrillation History of present illness: "Margarita" is a 87 year old female who is well known to Dr. Vanessa with a history of SOA, Syncope and collapse, hypotension, CAD, PAF, non rheumatic aortic stenosis and DM who has a history of frequent UTI and chronic indwelling Ortiz catheter since 02/2017. On 08/14/17, Ms. La began running a fever with sweating , decreased appetite and reported hallucinations while at home. Her daughter also reported a very strong foul odor from her urine. She called her home health nurse who obtained a urine sample on 08/14/17 which revealed a UTI. She reportedly has had progressive generalized weakness with increased fatigue and is usually very active, alert and lively. Dr. Caballero initiated treatment with Bactrim and the urine was sent for culture. She then reported had increased lethargy with worsening generalized weakness. Upon arrival to the ED, Ms. La was tachycardiac (heart rate 108) with a blood pressure of 95/54. Labs were obtained and were relatively unremarkable. UA revealed 20-30 WBC with 1+ bacteria. Family states that her indwelling ortiz catheter was changed by the home health nurse prior arrival. The urine culture from the UA on 08/14/17 obtained by [facility] is revealing early growth with gram negative rods. She was given 1L NS and started on cefepime 1g IV for empiric coverage of suspected urinary pathogens. Lactate was 1.7. Due to her apparent sepsis secondary to UTI as indicated by her tachycardia, hypotension, reported fever and altered mental status, Dr. Martinez accepted Margarita into inpatient status for IV antibiotics, close monitoring of hemodynamic stability, IV fluids and continued care. Around 2315 last evening she went into A Fib with RVR, transferred to CCU for Cardizem infusion and Dr. Vanessa is consulted for management, we appreciate the consult Review of Systems - Constitutional Constitutional: Present: chills, lethargy, weakness. Absent: fever(s) - EENMT Eyes: Absent: change in vision Balance: Absent: vertigo Mouth/Throat: Absent: sore throat - Cardiovascular Cardiovascular: Absent: chest pain, palpitations, syncope, dyspnea on exertion, orthopnea Rhythm: Present: abnormal rhythm - Respiratory Respiratory: Absent: cough, dyspnea, dyspnea on exertion - Gastrointestinal Gastrointestinal: Absent: constipation, nausea, vomiting - Genitourinary Genitourinary: Absent: dysuria - Integumentary/Breasts Integumentary: Absent: rash - Neurological Neurological: Present: dizziness - Endocrine Endocrine: Absent: palpitations PFSH Patient Stated Medical History Cerebrovascular Accident Yes Dementia Yes Transient Ischemic Attacks ( Yes TIA) Cardiac Arrhythmia Yes: Afib Other Cardiology Yes: AORTIC STENOSIS Diabetes Mellitus Type 2 Yes Other GI Yes: constipation Hx Urinary Tract Infection Yes: chronic Clotting Problems Yes: LEFT ARM-HX BLOOD CLOT Post Menopausal Yes Medical History Updates: History of CVA - 2011. Dementia. Severe aortic stenosis. History of DVT to left arm. Diabetes mellitus, type 2. Constipation. Chronic kidney disease, stage III. CAD. Hypothyroidism. A- fib. History of frequent UTIs. Osteoarthritis. Indwelling Ortiz catheter - . Surgical History: Stent placement x 2 - 10/2016, 01/2017. Heart caths. Cholecystectomy. Right total knee replacement. Hysterectomy. Bilateral cataract extraction. Colonscopies. Family History Updates: Father - , COPD, questionable TB. Mother - , chronic kidney disease. Aunt - , colon cancer. - Social History Smoking status: Never smoker Substance use type: does not use Alcohol intake frequency: does not drink Housing: house Household members: family (daughter who is primary caregiver) Current occupational status: retired Does patient use chewing tobacco?: No Current residence: Apartment/Private Home Medications Home Medications Medication Instructions Recorded Confirmed Type Ascorbate Calcium [Vitamin C] 1,000 mg PO DAILY 08/15/17 08/15/17 History Aspirin [Aspirin EC] 81 mg PO DAILY 08/15/17 08/15/17 History Clopidogrel [Plavix] 75 mg PO DAILY 08/15/17 08/15/17 History Cyanocobalamin (Vitamin B-12) 5,000 mcg SL DAILY 08/15/17 08/15/17 History [B-12] Docusate Sodium [Colace] 100 mg PO DAILY 08/15/17 08/15/17 History Levothyroxine Sodium 50 mcg PO ACB 08/15/17 08/15/17 History Memantine HCl [Namenda Xr] 28 mg PO DAILY 08/15/17 08/15/17 History Midodrine [Proamatine] 5 mg PO TID 08/15/17 08/15/17 History Multivit-Min/FA/Lycopen/Lutein 1 tab PO DAILY 08/15/17 08/15/17 History [Centrum Silver Tablet] Sitagliptin Phos/Metformin HCl 1 tab PO BID 08/15/17 08/15/17 History [Janumet 50-500 mg Tablet] Sulfamethoxazole/Trimethoprim 1 tab PO BID 08/15/17 08/15/17 History [Bactrim Ds Tablet] Allergies Allergy/AdvReac Type Severity Reaction Status Date / Time No Known Allergies Allergy Verified 08/15/17 16:14 Exam Vital signs: Temperature 98.8 F 08/19/17 08:00 Pulse Rate 82 08/19/17 10:14 Respiratory Rate 22 08/19/17 10:14 Blood Pressure 87/49 08/19/17 10:15 Pulse Oximetry 94 08/19/17 10:14 - Constitutional no acute distress, well nourished, cooperative - Routine HEENT Exam Head: Present: normocephalic ENT: Present: mucous membranes dry - Routine Neck Exam Present: JVD. Absent: carotid bruit - Routine Chest/Breast/Axilla Exam Chest wall: Absent: tenderness - Routine Respiratory Exam Present: rales (bibasilar), diminished air movement. Absent: dyspnea, CTA bilaterally - Routine Cardiovascular Exam Present: murmur (II/), irregular rhythm - Routine Abdominal Exam Present: soft, non tender - Routine Extremities Exam Present: edema - Routine Skin Exam Present: intact, dry, warm - Routine Neurological Exam Present: altered mental status - Routine Psychiatric Exam Present: unable to assess Results 08/19/17 04:02 08/19/17 04:02 Cardiac Enzymes 08/18/17 08/19/17 08/19/17 Range/Units 23:24 04:02 09:44 Troponin I 0.025 0.027 0.022 (0-0.12) ng/ml CBC 08/19/17 Range/Units 04:02 WBC 8.7 (4.5-11.0) T/MM3 RBC 3.71 L (4.00-5.20) M/MM3 Hgb 12.2 D (12-16) GM/DL Hct 35.5 L D (36-46) % Plt Count 161 (130-400) T/MM3 Neut # (Auto) 6.7 (1.8-7.7) T/MM3 Lymph # (Auto) 0.8 L (1-4.8) T/MM3 [place] # (Auto) 0.8 (0-0.8) T/MM3 Eos # (Auto) 0.3 (0-0.5) T/MM3 Baso # (Auto) 0.0 (0-0.2) T/MM3 Comprehensive Metabolic Panel 08/19/17 Range/Units 04:02 Sodium 143 (134-144) MEQ/L Potassium 3.3 L (3.6-5) MEQ/L Chloride 106 D (98-107) MEQ/L Carbon Dioxide 28 (22-30) MEQ/L BUN 24.0 H (7-17) MG/DL Creatinine 0.8 (0.7-1.2) mg/dL Glucose 162 H (65-110) MG/DL Calcium 8.5 (8.4-10.2) MG/DL Intake and Output 08/18/17 08/19/17 08/19/17 22:59 06:59 14:59 Intake Total 100 / 100 58.917 / 58.917 Output Total 1675 / 1675 1293 / 1293 62 / 62 Balance -1575 / -1575 -1234.083 / -1234.083 -62 / -62 Intake: IV 100 / 100 58.917 / 58.917 Ceftriaxone 1 g In Ns 100 ml @ 100 / 100 200 mls/hr IV Q24H [facility] Rx#: [id number] DiltiaZEM Drip 125 mg In Ns 125 58.917 / 58.917 ml @ 5 mls/hr IV .Q24H [facility] Rx# :[id number] Oral 0 / 0 Output: Urine Amount (Catheter) 1675 / 1675 1293 / 1293 62 / 62 Other: Urine Appearance Clear Sediment Sediment Urine Color Yellow Pale Yellow Yellow Urine Odor Normal # Incontinent Voids 1 Weight 144 lb 6.444 oz Patient Weight 08/20/17 06:59 Weight 144 lb 6.444 oz - Imaging and Cardiology Imaging & Cardiology Narrative: Date of Exam: 08/18/17 Ordering Provider: Sunny Mesa MD Type of Exam(s): XR chest 1V Reason for Exam(s): hypoxia EXAM: XR chest 1V LOCATION OF DICTATION: [place] HISTORY: hypoxia COMPARISON: No prior studies available for comparison. FINDINGS: The heart size is normal. The mediastinal configuration is within normal limits. There are diffuse airspace opacities throughout the bilateral lungs. There is some blunting the costophrenic angles which may reflect small effusions. There is no pneumothorax. The osseous structures are within normal limits for the patient's age. IMPRESSION: Diffuse airspace opacities throughout both lungs. Probable small bilateral pleural effusions. Close interval follow-up is recommended. 08/19/17 11:22 08/19/17 15:28 Date of Exam: 08/19/17 Type of Exam(s): US echo doppler complete DATE OF PROCEDURE: August 19, 2017 REFERRING PHYSICIAN: Dr. Sunny Mesa TECHNIQUE This is a two-dimensional echo with spectral Doppler, color-flow and M-mode. It was obtained in a patient with atrial fibrillation. Left atrium is dilated. Left ventricle end-diastolic dimension is normal. Left ventricle wall thickness is normal. LV systolic function is normal with ejection fraction of 58%. Right atrium is normal. Right ventricle is normal. Aortic root dimension is normal. Mitral valve annulus is calcified. Mitral valve leaflets are sclerotic with no stenosis. Moderate mitral regurgitation is present. Aortic valve shows fibrocalcific changes. Restriction on opening motion is present. Transaortic velocities are increased with peak velocity of 3.52 meters per second with peak gradient of 50 and mean gradient of 28. Aortic valve area is calculated at 0.72 cm2. Tricuspid valve shows mild tricuspid regurgitation with moderate pulmonary hypertension with estimated pulmonary artery systolic pressure of 44. Pulmonary valve shows no pulmonary insufficiency. There is no pericardial effusion. IMPRESSION 1. Normal LV systolic function with ejection fraction of 58%. 2. Left atrial dilation. 3. Mitral annulus calcification with mitral sclerosis and moderate mitral regurgitation. 4. Aortic stenosis with a valve area of 0.72 cm2. 5. Mild tricuspid regurgitation with moderate pulmonary hypertension with estimated pulmonary artery systolic pressure of 44. EKG interpretations - EKG EKG shows: atrial fibrillation (with RVR) Assessment and Plan - Assessment and Plan (1) Atrial fibrillation with RVR Current visit: Yes Status: Acute History of PAF, asymptomatic - Takes Amiodarone 100mg daily, not given this admission - Amiodarone bolus and drip - Npo for possible DCCV - Converted to SR - Resume home Amiodarone 100mg PO daily and stop IV - EKG now - Stop Digoxin. - Check TSH and Mag - Cardiac telemetry (2) Atherosclerotic heart disease of [place] coronary artery without angina pectoris Current visit: Yes Status: Chronic Stable. continue current therapy, routine monitoring. - Continue Aspirin and Plavix (3) Nonrheumatic aortic valve stenosis Current visit: Yes Status: Chronic (4) Syncope and collapse Current visit: Yes Status: Chronic (5) Hypotension Current visit: Yes Status: Chronic Continue Midodrine (6) Type 2 diabetes mellitus without complications Current visit: Yes Status: Chronic (7) Diastolic CHF Current visit: Yes Status: Acute Diurese with Lasix 40mg IV q8h - CXR: Diffuse airspace opacities throughout both lungs. Probable small bilateral pleural effusions. Close interval follow-up is recommended. - K+ 3.3, replace - Assessment and Plan A Fib with RVR: History of PAF, asymptomatic - Takes Amiodarone 100mg daily, not given this admission - Amiodarone bolus and drip - Npo for possible DCCV - Converted to SR - Resume home Amiodarone 100mg PO daily and stop IV - EKG now - Stop Digoxin. - Check TSh and Mag DCHF: Diurese with Lasix 40mg IV q8h - CXR: Diffuse airspace opacities throughout both lungs. Probable small bilateral pleural effusions. Close interval follow-up is recommended. - K+ 3.3, replace CAD: Stable. continue current therapy, routine monitoring. - Continue Aspirin and Plavix Hypotension: Continue Midodrine Thank you for allowing us to participate in the care of this patient. Hospital Course Summary Disclaimer: The visit summary below is not to be considered part of the above Progress Note. Hospital Course: 08/15/17 [facility] under the care of Dr. Martinez. 1L NS initiated in ED. Will continue NS 100cc/hr for hydration. Cefepime 1g IV given in ED. Continue empiric coverage for urinary pathogens with Cefepime IV Q6H. UA culture from 08/14/17 revealing gram negative rods. Monitor for sensitives and new UA culture results. Blood culture obtained and results pending. Monitor closely on telemetry. Continue home medications. Monitor blood pressure closely. Monitor daily weight and urinary output closely for signs of fluid overload. Renal function stable. Upon discharge, patient's care will be returned to Dr Caballero. Patient is a DNR. 08/17/17 Sepsis secondary to UTI as indicated by tachycardia, fever, altered level of consciousness and hypotension. -IVF -Repeat lactate-normalized -Mental status improving UTI -Recurrent, frequent -Indwelling Ortiz- since 02/2017 - changed 08/15/17. -On cefepime -Bl cx NGTD -Urine cx from 08/15 NGTD, the one done on 08/14 growing E. coli sensitive to cefepime Altered level of consciousness. -This is usual for her when she gets an UTI per daughter -She does have underlying dementia -This is improved today Generalized weakness and debility. -Due to UTI -consult PT PAF -Not on OAC -Metoprolol 25mg q6hr prn started by nighttime MD -With her hypotension, she may not tolerate this. -Will try low dose digoxin and monitor History of CVA - 2011. -On aspirin and Plavix Dementia. -On Namenda XR Hypothyroid -continue levothyroxine -Last free T4 1.84 in November 2016 Severe aortic stenosis. -SKYE 0.7cm2 per HC 08/2016 Orthostatic hypotension -Continue midodrine History of DVT to left arm. -S/P Mechanical clot removal Diabetes mellitus, type 2. -Continue Janumet -Last A1C I can find was in november 2016 and was 5.3% Constipation. -On Colace daily H/O Chronic kidney disease, stage III. -Creatinine normal here and I do not see any elevations in recent history CAD -H/O stents 2016 -HC 08/2016 showing LVEF 65%, SKYE 0.7cm2, 70-80% LAD, 30% LCx, 70-75% RCA -CHRIS to RCA 09/2016 -CHRIS to LAD 01/2017 Hypothyroidism. -Continue levothyroxine Osteoarthritis. 08/18/17 Oxygen needs continue to increase. Chest X-ray this morning does revel small bilateral pleural effusions and pulmonary edema. Lasix 40 mg IV x1 given this morning, will give repeat 40mg IV Lasix this evening. IVF stopped. Continue to monitor urinary output via Ortiz cath (chronic- changed 08/15) Trend daily weights. she is up 5 Kg from admission Change cefepime for ceftriaxone for treatment of Ecoli UTI. Continue to monitor Accu-Cheks Recheck CBC in am due to UTI/Resolving sepsis. Will recheck BMP in am secondary to Lasix use. Lovenox subcutaneous daily for DVT prophylaxis 08/19/17 Transferred to CCU overnight secondary to Afib with RVR, diltiazem drip started. HR showing improvement. Will consult with Dr Vanessa for treatment recommendations for afib. Digoxin level slightly subtherapeutic at 0.7 - could be increased. Will continue with Rocephin for urinary coverage. Lasix 20mg IV x1 to help mobilize pulmonary edema. Will recheck CXR in am. Weight trending down. Output increased with Lasix yesterday. Continue with supplemental O2, weaning as able. Encourage oral intake. <Lawrence Vanessa - Last Filed: 08/20/17 13:11> History of Present Illness Chief complaint: weakness [facility] Patient Stated Medical History Cerebrovascular Accident Yes Dementia Yes Transient Ischemic Attacks ( Yes TIA) Cardiac Arrhythmia Yes: Afib Other Cardiology Yes: AORTIC STENOSIS Sleep Apnea No Diabetes Mellitus Type 2 Yes Other GI Yes: constipation Hx Urinary Tract Infection Yes: chronic Clotting Problems Yes: LEFT ARM-HX BLOOD CLOT Post Menopausal Yes Exam Vital signs: Temperature 97.1 F 08/20/17 11:45 Pulse Rate 69 08/20/17 12:00 Respiratory Rate 20 08/20/17 12:00 Blood Pressure 118/57 08/20/17 12:00 Pulse Oximetry 95 08/20/17 12:00 Results 08/20/17 04:11 08/20/17 04:11 Cardiac Enzymes 08/20/17 Range/Units 04:11 AST 16 (14-36) U/L CBC 08/20/17 Range/Units 04:11 WBC 9.1 (4.5-11.0) T/MM3 RBC 3.06 L (4.00-5.20) M/MM3 Hgb 9.4 L D (12-16) GM/DL Hct 30.1 L D (36-46) % Plt Count 230 D (130-400) T/MM3 Neut # (Auto) 6.8 (1.8-7.7) T/MM3 Lymph # (Auto) 1.0 (1-4.8) T/MM3 [place] # (Auto) 0.7 (0-0.8) T/MM3 Eos # (Auto) 0.6 H (0-0.5) T/MM3 Baso # (Auto) 0.0 (0-0.2) T/MM3 Comprehensive Metabolic Panel 08/20/17 Range/Units 04:11 Sodium 147 H (134-144) MEQ/L Potassium 2.9 L* (3.6-5) MEQ/L Chloride 104 (98-107) MEQ/L Carbon Dioxide 32 H (22-30) MEQ/L BUN 27.0 H (7-17) MG/DL Creatinine 0.9 (0.7-1.2) mg/dL Glucose 134 H (65-110) MG/DL Calcium 8.5 (8.4-10.2) MG/DL AST 16 (14-36) U/L ALT 11 (1-35) U/L Alkaline Phosphatase 69 (38-126) U/L Total Protein 5.9 L (6.3-8.2) g/dL Albumin 3.0 L (3.5-5.0) g/dL Intake and Output 08/19/17 08/20/17 08/20/17 22:59 06:59 14:59 Intake Total 216.656 / 216.656 200 / 200 Output Total 841 / 841 852 / 852 660 / 660 Balance -624.344 / -624.344 -852 / -852 -460 / -460 Intake: IV 216.656 / 216.656 100 / 100 Amiodarone 450 mg In NS 250ml 116.656 / 116.656 250 ml @ 1 MG/MIN 33.33 mls/hr IV .[id number] [facility] Rx#:[id number] Ceftriaxone 1 g In Ns 100 ml @ 100 / 100 200 mls/hr IV Q24H [facility] Rx#: [id number] Potassium Chloride Premix 10 100 / 100 meq In 100 ml @ 100 mls/hr IV O ONE Rx#:[id number] Oral 100 / 100 Output: Urine Amount (Catheter) 841 / 841 852 / 852 660 / 660 Other: Urine Appearance Clear Clear Urine Color Pale Yellow Weight 62.3 kg Patient Weight 08/21/17 06:59 Weight 62.3 kg Assessment and Plan - Attestation Attestation Narrative: 08/20/17 13:11 Recommendation After examining the patient I agree with the above assessment. I am involved in the formulation of the patient's plan of care. - Assessment and Plan (1) Atrial fibrillation with RVR Current visit: Yes Status: Acute (2) Atherosclerotic heart disease of [place] coronary artery without angina pectoris Current visit: Yes Status: Chronic (3) Nonrheumatic aortic valve stenosis Current visit: Yes Status: Chronic (4) Syncope and collapse Current visit: Yes Status: Chronic (5) Hypotension Current visit: Yes Status: Chronic (6) Type 2 diabetes mellitus without complications Current visit: Yes Status: Chronic (7) Diastolic CHF Current visit: Yes Status: Acute Hospital Course Summary Disclaimer: The visit summary below is not to be considered part of the above Progress Note.
[2017-08-19] MEDS ORDERED: AMIODARONE 150 MG in NS 100 ML IV ONE (11:57)
[2017-08-19] MEDS ORDERED: AMIODARONE 450 MG in NS 250ml 250 ML IV SCH (12:00)
--- NOTE | 2017-08-19 14:35 | Echocardiogram ---
DATE OF PROCEDURE: August 19, 2017 REFERRING PHYSICIAN: Dr. Sunny Mesa TECHNIQUE This is a two-dimensional echo with spectral Doppler, color-flow and M-mode. It was obtained in a patient with atrial fibrillation. Left atrium is dilated. Left ventricle end-diastolic dimension is normal. Left ventricle wall thickness is normal. LV systolic function is normal with ejection fraction of 58%. Right atrium is normal. Right ventricle is normal. Aortic root dimension is normal. Mitral valve annulus is calcified. Mitral valve leaflets are sclerotic with no stenosis. Moderate mitral regurgitation is present. Aortic valve shows fibrocalcific changes. Restriction on opening motion is present. Transaortic velocities are increased with peak velocity of 3.52 meters per second with peak gradient of 50 and mean gradient of 28. Aortic valve area is calculated at 0.72 cm2. Tricuspid valve shows mild tricuspid regurgitation with moderate pulmonary hypertension with estimated pulmonary artery systolic pressure of 44. Pulmonary valve shows no pulmonary insufficiency. There is no pericardial effusion. IMPRESSION 1. Normal LV systolic function with ejection fraction of 58%. 2. Left atrial dilation. 3. Mitral annulus calcification with mitral sclerosis and moderate mitral regurgitation. 4. Aortic stenosis with a valve area of 0.72 cm2. 5. Mild tricuspid regurgitation with moderate pulmonary hypertension with estimated pulmonary artery systolic pressure of 44. MTDD
[2017-08-19] MEDS: CEFTRIAXONE 1 G in NS 100 ML IV SCH (16:33)
[2017-08-19] MEDS: FUROSEMIDE 40 MG/4 ML INJECTION IVP SCH (16:33)
[2017-08-19] MEDS ORDERED: FentaNYL 100 MCG/2 ML INJECTION IVP ONE (16:45)
[2017-08-19] MEDS ORDERED: MIDAZOLAM 2mg/2ml INJECTION IVP ONE (16:45)
[2017-08-19] MEDS ORDERED: AMIODARONE 900 MG in NS 500ml 500 ML IV SCH (18:00)
[2017-08-19] MEDS: AMIODARONE 200 MG TABLET PO SCH (19:26)
[2017-08-19] MEDS: SALINE FLUSH 10ml SYRINGE IVF PRN (19:32)
[2017-08-19] MEDS: ACETAMINOPHEN 325 MG TABLET PO PRN (19:46)
[2017-08-20] MEDS: SALINE FLUSH 10ml SYRINGE IVF PRN (05:00)
[2017-08-20] MEDS: FUROSEMIDE 40 MG/4 ML INJECTION IVP SCH ×3 (05:00→21:54)
[2017-08-20] MEDS: SALINE 0.65% NASAL SPRAY 44 ML BOTTLE EA NOSTRIL SCH ×5 (05:03→21:54)
[2017-08-20] MEDS ORDERED: POTASSIUM CHLORIDE PREMIX 10 MEQ/100 ML BAG IV ONE (05:37)
[2017-08-20] MEDS: LEVOTHYROXINE 50 MCG TABLET PO SCH (05:44)
[2017-08-20] MEDS: MIDODRINE 5 MG TABLET PO SCH ×3 (06:08→15:19)
--- NOTE | 2017-08-20 08:22 | XRay Report ---
Indication: F/U pulmonary edema PROCEDURE: XR chest 1V: Encounter: Initial Comparison: August 18, 2017 Findings: Diffuse bilateral airspace disease is not significantly changed. No pneumothorax or significant pleural effusion. Heart size and mediastinal contours are stable. Impression: No significant change in diffuse bilateral airspace disease which could represent edema, pneumonia, massive aspiration or pulmonary hemorrhage. .
[2017-08-20] MEDS: AMIODARONE 200 MG TABLET PO SCH (08:39)
[2017-08-20] MEDS: CLOPIDOGREL 75 MG TABLET PO SCH (08:41)
[2017-08-20] MEDS: MEMANTINE 10 MG TABLET PO SCH ×2 (08:41→22:15)
[2017-08-20] MEDS: ENOXAPARIN 40 MG/0.4 ML INJECTION SQ SCH (08:41)
[2017-08-20] MEDS: DOCUSATE SODIUM 100 MG CAPSULE PO SCH (08:41)
[2017-08-20] MEDS: ASPIRIN *EC* 81 MG TABLET PO SCH (08:41)
--- NOTE | 2017-08-20 09:08 | DC Cardioversion ---
DATE OF PROCEDURE August 19, [address] Sunny Mesa The patient is a pleasant 87-year-old lady with history of paroxysmal atrial fibrillation who went into atrial fibrillation about 20 hours ago and was referred for DC cardioversion. The patient failed to convert with Amiodarone drip. Informed consent was obtained after explaining the procedure and the potential risks to the patient and daughter who is the DPOA who agreed to proceed with the procedure. PROCEDURE 1. DC cardioversion. Conscious sedation was performed using Versed and fentanyl. Anterior-posterior Zoll pads were applied. 360 joules of energy was delivered in synchronized manner and the patient converted from atrial fibrillation to sinus rhythm. She tolerated the procedure well with no complications. IMPRESSION 1. Successful DC cardioversion of atrial fibrillation to sinus rhythm. PLAN Will keep her on amiodarone to maintain sinus. MTDD
--- NOTE | 2017-08-20 11:07 | Cardiology Progress Note ---
<Ismael,Amy M - Last Filed: 08/21/17 15:10> Subjective Principal diagnosis: AFib RVR Interval history: Margarita is seen in follow up for AFib with RVR. She is seen in her room She denies cardiac complaints Exam Vital signs: Temperature 97.3 F 08/20/17 07:45 Pulse Rate 72 08/20/17 08:15 Respiratory Rate 16 08/20/17 08:15 Blood Pressure 116/55 08/20/17 08:00 Pulse Oximetry 96 08/20/17 08:15 Inpatient Medications: Generic Name Dose Route Start Last Admin Trade Name Freq PRN Reason Stop Dose Admin Acetaminophen 650 mg 08/15/17 19:04 08/19/17 19:46 Tylenol PO 650 mg Q5H PRN Administration Discomfort Amiodarone HCl 100 mg 08/19/17 15:30 08/20/17 08:39 Pacerone PO 100 mg DAILY [facility] Administration Aspirin 81 mg 08/16/17 09:00 08/20/17 08:41 Ecotrin PO 81 mg DAILY [facility] Administration Clopidogrel Bisulfate 75 mg 08/17/17 09:00 08/20/17 08:41 Plavix PO 75 mg DAILY [facility] Administration Cyanocobalamin 1,000 mcg 08/17/17 09:00 08/17/17 09:00 Vit. B-12 IM 1,000 mcg Abarca [facility] Administration Docusate Sodium 100 mg 08/16/17 09:00 08/20/17 08:41 Colace PO 100 mg DAILY [facility] Administration Enoxaparin Sodium 40 mg 08/17/17 04:00 08/20/17 08:41 Lovenox SQ 40 mg DAILY [facility] Administration Furosemide 40 mg 08/19/17 17:00 08/20/17 05:00 Lasix 40 Mg/4 Ml IVP 40 mg Q8HR [facility] Administration Ceftriaxone Sodium 1 g/ Sodium 100 mls @ 200 mls/hr 08/18/17 14:45 08/19/17 17:03 Chloride IV Infused Q24H [facility] Infusion Lidocaine HCl 10 mg/ Potassium 100 mls @ 50 mls/hr 08/20/17 10:30 Chloride 10 meq/ Sodium IV 08/20/17 18:57 Chloride .Q2H [facility] Levothyroxine Sodium 50 mcg 08/18/17 06:30 08/20/17 05:44 Synthroid PO 50 mcg ACB [facility] Administration Memantine 10 mg 08/16/17 09:00 08/20/17 08:41 Namenda PO 10 mg BID [facility] Administration Midodrine 5 mg 08/18/17 11:00 08/20/17 06:08 Proamatine PO 5 mg 0700,1100,1500 [facility] Administration Ondansetron HCl 4 mg 08/15/17 19:04 Zofran IVP Q6H PRN Nausea &/or vomiting Senna/Docusate Sodium 1 tab 08/15/17 19:04 Senna Plus Tablet PO BID PRN Constipation Sodium Chloride 10 - 80 ml 08/15/17 15:23 08/20/17 05:00 Iv Flush IVF 10 ml PRN PRN Administration Flushing Sodium Chloride 500 ml 08/15/17 15:35 08/15/17 15:38 Normal Saline IV 500 ml PRN PRN Administration Sodium Chloride 10 ml 08/15/17 19:04 Iv Flush IV PRN PRN Flushing Sodium Chloride 2 spray 08/18/17 18:44 08/20/17 09:10 Deep Sea Nasal Moisturizing [place] EA NOSTRIL 2 spray QID [facility] Administration Discontinued Medications Generic Name Dose Route Start Last Admin Trade Name Freq PRN Reason Stop Dose Admin Acetaminophen 650 mg 08/15/17 19:04 Tylenol Supp MT Q5H PRN Pain Clopidogrel Bisulfate 75 mg 08/16/17 09:00 08/16/17 08:31 Plavix PO 75 mg DAILY [facility] Administration Cyanocobalamin 5,000 mcg 08/16/17 09:00 08/16/17 09:26 Vit. B-12 PO 5,000 mcg DAILY [facility] Administration Cyanocobalamin 0 mcg 08/17/17 09:00 Vit. B-12 PO DAILY [facility] Digoxin 125 mcg 08/17/17 12:00 08/19/17 08:57 Lanoxin PO 125 mcg DAILY [facility] Administration Diltiazem HCl 10 mg 08/18/17 21:55 08/18/17 22:19 Cardizem 25 Mg Inj IVP 08/18/17 21:56 10 mg O ONE Administration Furosemide 40 mg 08/18/17 12:16 08/18/17 12:26 Lasix 40 Mg/4 Ml IVP 08/18/17 12:17 40 mg Q6HR ONE Administration Furosemide 40 mg 08/18/17 20:00 08/18/17 20:44 Lasix 40 Mg/4 Ml IVP 08/18/17 20:01 40 mg ONE TIME ONE Administration Furosemide 20 mg 08/19/17 10:19 08/19/17 10:31 Lasix 20 Mg/2 Ml IVP 08/19/17 10:20 20 mg ONCE ONE Administration Cefepime HCl 1 gm/ Sodium 100 mls @ 200 mls/hr 08/15/17 15:23 08/15/17 16:20 Chloride IV 08/15/17 15:52 Infused O ONE Infusion Sodium Chloride 1,000 mls @ 1,000 mls/hr 08/15/17 15:23 08/15/17 17:07 Normal Saline IV 08/15/17 16:22 Infused .Q1H ONE Infusion Sodium Chloride 1,000 mls @ 100 mls/hr 08/15/17 19:15 08/18/17 11:37 Normal Saline IV Infused .Q10H [facility] Infusion Cefepime HCl 1 gm/ Sodium 100 mls @ 200 mls/hr 08/15/17 21:30 08/18/17 10:03 Chloride IV Infused Q6H [facility] Infusion Sodium Chloride 500 mls @ 500 mls/hr 08/15/17 22:59 08/15/17 23:20 Normal Saline IV 08/15/17 23:58 Not Given .Q1H ONE Cefepime HCl 1 gm/ Sodium 100 mls @ 200 mls/hr 08/18/17 16:00 Chloride IV Q6H [facility] Diltiazem HCl 125 mg/ Sodium 125 mls @ 5 mls/hr 08/18/17 23:00 08/19/17 13:52 Chloride IV 0 mls/hr .Q24H [facility] Infusion Protocol Amiodarone HCl 450 mg/ Sodium 250 mls @ 33.33 mls/hr 08/19/17 12:00 08/19/17 18:00 Chloride IV 08/19/17 18:00 0.99 mg/min .Q7H31M [facility] 33.33 mls/hr 1 MG/MIN Infusion Amiodarone HCl 900 mg/ Sodium 500 mls @ 16.66 mls/hr 08/19/17 18:00 Chloride IV .Q24H [facility] 0.5 MG/MIN Amiodarone HCl 150 mg/ Sodium 103 mls @ 618 mls/hr 08/19/17 11:57 08/19/17 12 :52 Chloride IV 08/19/17 12:06 Infused O ONE Infusion Potassium Chloride 10 meq in 100 mls @ 100 mls/hr 08/20/17 05:37 08/20/17 08: 07 Potassium Chloride Premix IV 08/20/17 06:36 Infused O ONE Infusion Levothyroxine Sodium 50 mcg 08/16/17 06:30 08/17/17 05:58 Synthroid PO 50 mcg ACB [facility] Administration Metoprolol Tartrate 25 mg 08/17/17 03:29 08/17/17 03:59 Lopressor PO 25 mg Q6H PRN Administration Midodrine 5 mg 08/15/17 21:00 08/17/17 08:59 Proamatine PO 5 mg TID [facility] Administration Midodrine 5 mg 08/17/17 09:00 08/18/17 09:28 Proamatine PO 08/18/17 10:00 5 mg TID [facility] Administration Non-Formulary Medication 5,000 mcg 08/16/17 09:00 Cyanocobalamin (Vitamin B-12) [B-12] SL DAILY [facility] Non-Formulary Medication 28 mg 08/16/17 09:00 Memantine Hcl [Namenda Xr] PO DAILY [facility] Non-Formulary Medication 1 tab 08/15/17 21:00 Sitagliptin Phos/Metformin Hcl [Janumet 50-500 Mg Tablet] PO BID [facility] Potassium Chloride 40 meq 08/19/17 15:36 K-Dur 20 Meq Tablet PO 08/19/17 15:37 O ONE Potassium Chloride 40 meq 08/20/17 05:37 08/20/17 05:44 K-Dur 20 Meq Tablet PO 08/20/17 05:38 40 meq O ONE Administration - Constitutional no acute distress, well nourished, cooperative - Routine HEENT Exam Head: Present: normocephalic ENT: Present: mucous membranes moist - Routine Neck Exam Present: JVD. Absent: carotid bruit - Routine Chest/Breast/Axilla Exam Chest wall: Absent: tenderness - Routine Respiratory Exam Present: rales (bibasilar), diminished air movement. Absent: dyspnea, CTA bilaterally - Routine Cardiovascular Exam Present: RRR, murmur (II/), JVD - Routine Abdominal Exam Present: soft, non tender - Routine Extremities Exam Present: edema - Routine Skin Exam Present: intact, dry, warm - Routine Neurological Exam Present: alert - Routine Psychiatric Exam Present: normal affect - Urinary Catheter Management Urethral Cath placed during this visit: no Results 08/21/17 04:08 08/21/17 04:08 Cardiac Enzymes 08/20/17 Range/Units 04:11 AST 16 (14-36) U/L CBC 08/20/17 Range/Units 04:11 WBC 9.1 (4.5-11.0) T/MM3 RBC 3.06 L (4.00-5.20) M/MM3 Hgb 9.4 L D (12-16) GM/DL Hct 30.1 L D (36-46) % Plt Count 230 D (130-400) T/MM3 Neut # (Auto) 6.8 (1.8-7.7) T/MM3 Lymph # (Auto) 1.0 (1-4.8) T/MM3 [place] # (Auto) 0.7 (0-0.8) T/MM3 Eos # (Auto) 0.6 H (0-0.5) T/MM3 Baso # (Auto) 0.0 (0-0.2) T/MM3 Comprehensive Metabolic Panel 08/20/17 Range/Units 04:11 Sodium 147 H (134-144) MEQ/L Potassium 2.9 L* (3.6-5) MEQ/L Chloride 104 (98-107) MEQ/L Carbon Dioxide 32 H (22-30) MEQ/L BUN 27.0 H (7-17) MG/DL Creatinine 0.9 (0.7-1.2) mg/dL Glucose 134 H (65-110) MG/DL Calcium 8.5 (8.4-10.2) MG/DL AST 16 (14-36) U/L ALT 11 (1-35) U/L Alkaline Phosphatase 69 (38-126) U/L Total Protein 5.9 L (6.3-8.2) g/dL Albumin 3.0 L (3.5-5.0) g/dL Intake and Output 08/19/17 08/20/17 08/20/17 22:59 06:59 14:59 Intake Total 216.656 / 216.656 100 / 100 Output Total 841 / 841 852 / 852 410 / 410 Balance -624.344 / -624.344 -852 / -852 -310 / -310 Intake: IV 216.656 / 216.656 100 / 100 Amiodarone 450 mg In NS 250ml 116.656 / 116.656 250 ml @ 1 MG/MIN 33.33 mls/hr IV .Q7H31M [facility] Rx#:[id number] Ceftriaxone 1 g In Ns 100 ml @ 100 / 100 200 mls/hr IV Q24H [facility] Rx#: [id number] Potassium Chloride Premix 10 100 / 100 meq In 100 ml @ 100 mls/hr IV O ONE Rx#:[id number] Output: Urine Amount (Catheter) 841 / 841 852 / 852 410 / 410 Other: Urine Appearance Clear Clear Urine Color Pale Yellow Weight 137 lb 5.568 oz Patient Weight 08/21/17 06:59 Weight 137 lb 5.568 oz - Imaging and Cardiology Imaging & Cardiology Narrative: DATE OF PROCEDURE August 19, [address] Sunny Mesa The patient is a pleasant 87-year-old lady with history of paroxysmal atrial fibrillation who went into atrial fibrillation about 20 hours ago and was referred for DC cardioversion. The patient failed to convert with Amiodarone drip. Informed consent was obtained after explaining the procedure and the potential risks to the patient and daughter who is the DPOA who agreed to proceed with the procedure. PROCEDURE 1. DC cardioversion. Conscious sedation was performed using Versed and fentanyl. Anterior-posterior Zoll pads were applied. 360 joules of energy was delivered in synchronized manner and the patient converted from atrial fibrillation to sinus rhythm. She tolerated the procedure well with no complications. IMPRESSION 1. Successful DC cardioversion of atrial fibrillation to sinus rhythm. PLAN Will keep her on amiodarone to maintain sinus. 08/20/17 11:04 08/20/17 11:05 Date of Exam: 08/20/17 Ordering Provider: Sunny Mesa MD Type of Exam(s): XR chest 1V Reason for Exam(s): F/U pulmonary edema Indication: F/U pulmonary edema PROCEDURE: XR chest 1V: Encounter: Initial Comparison: August 18, 2017 Findings: Diffuse bilateral airspace disease is not significantly changed. No pneumothorax or significant pleural effusion. Heart size and mediastinal contours are stable. Impression: No significant change in diffuse bilateral airspace disease which could represent edema, pneumonia, massive aspiration or pulmonary hemorrhage. Assessment and Plan - Assessment and Plan (1) Atrial fibrillation with RVR Current visit: Yes Status: Acute (2) Atherosclerotic heart disease of [place] coronary artery without angina pectoris Current visit: Yes Status: Chronic (3) Nonrheumatic aortic valve stenosis Current visit: Yes Status: Chronic (4) Syncope and collapse Current visit: Yes Status: Chronic (5) Hypotension Current visit: Yes Status: Chronic (6) Type 2 diabetes mellitus without complications Current visit: Yes Status: Chronic (7) Diastolic CHF Current visit: Yes Status: Acute - Assessment and Plan 08/19/17 A Fib with RVR: History of PAF, asymptomatic - Takes Amiodarone 100mg daily, not given this admission - Amiodarone bolus and drip - Npo for possible DCCV - Converted to SR - Resume home Amiodarone 100mg PO daily and stop IV - EKG now - Stop Digoxin. - Check TSh and Mag DCHF: Diurese with Lasix 40mg IV q8h - CXR: Diffuse airspace opacities throughout both lungs. Probable small bilateral pleural effusions. Close interval follow-up is recommended. - K+ 3.3, replace CAD: Stable. continue current therapy, routine monitoring. - Continue Aspirin and Plavix Hypotension: Continue Midodrine Thank you for allowing us to participate in the care of this patient. 08/20/17 AFib:Continue home dose Amiodarone 100mg daily - Not a candidate for half-way anticoagulation due to age and fall risk DCHF: Diuresing well. - CXR: No significant change in diffuse bilateral airspace disease which could represent edema, pneumonia, massive aspiration or pulmonary hemorrhage. - Continue Lasix 40mg IV q8h - K+ 2.9, Replace K+ 20meq po with meals TID - TSH, Mag WNL - Monitor renal and electrolytes Hospital Course Summary Disclaimer: The visit summary below is not to be considered part of the above Progress Note. Hospital Course: 08/15/17 [facility] under the care of Dr. Martinez. 1L NS initiated in ED. Will continue NS 100cc/hr for hydration. Cefepime 1g IV given in ED. Continue empiric coverage for urinary pathogens with Cefepime IV Q6H. UA culture from 08/14/17 revealing gram negative rods. Monitor for sensitives and new UA culture results. Blood culture obtained and results pending. Monitor closely on telemetry. Continue home medications. Monitor blood pressure closely. Monitor daily weight and urinary output closely for signs of fluid overload. Renal function stable. Upon discharge, patient's care will be returned to Dr Caballero. Patient is a DNR. 08/17/17 Sepsis secondary to UTI as indicated by tachycardia, fever, altered level of consciousness and hypotension. -IVF -Repeat lactate-normalized -Mental status improving UTI -Recurrent, frequent -Indwelling Ramirez- since 02/2017 - changed 08/15/17. -On cefepime -Bl cx NGTD -Urine cx from 08/15 NGTD, the one done on 08/14 growing E. coli sensitive to cefepime Altered level of consciousness. -This is usual for her when she gets an UTI per daughter -She does have underlying dementia -This is improved today Generalized weakness and debility. -Due to UTI -consult PT PAF -Not on OAC -Metoprolol 25mg q6hr prn started by nighttime MD -With her hypotension, she may not tolerate this. -Will try low dose digoxin and monitor History of CVA - 2011. -On aspirin and Plavix Dementia. -On Namenda XR Hypothyroid -continue levothyroxine -Last free T4 1.84 in November 2016 Severe aortic stenosis. -SKYE 0.7cm2 per 08/2016 Orthostatic hypotension -Continue midodrine History of DVT to left arm. -S/P Mechanical clot removal Diabetes mellitus, type 2. -Continue Janumet -Last A1C I can find was in november 2016 and was 5.3% Constipation. -On Colace daily H/O Chronic kidney disease, stage III. -Creatinine normal here and I do not see any elevations in recent history CAD -H/O stents 2016 -HC 08/2016 showing LVEF 65%, SKYE 0.7cm2, 70-80% LAD, 30% LCx, 70-75% RCA -CHRIS to RCA 09/2016 -CHRIS to LAD 01/2017 Hypothyroidism. -Continue levothyroxine Osteoarthritis. 08/18/17 Oxygen needs continue to increase. Chest X-ray this morning does revel small bilateral pleural effusions and pulmonary edema. Lasix 40 mg IV x1 given this morning, will give repeat 40mg IV Lasix this evening. IVF stopped. Continue to monitor urinary output via Ramirez cath (chronic- changed 08/15) Trend daily weights. she is up 5 Kg from admission Change cefepime for ceftriaxone for treatment of Ecoli UTI. Continue to monitor Accu-Cheks Recheck CBC in am due to UTI/Resolving sepsis. Will recheck BMP in am secondary to Lasix use. Lovenox subcutaneous daily for DVT prophylaxis 08/19/17 Transferred to CCU overnight secondary to Afib with RVR, diltiazem drip started. HR showing improvement. Will consult with Dr Vanessa for treatment recommendations for afib. Digoxin level slightly subtherapeutic at 0.7 - could be increased. Will continue with Rocephin for urinary coverage. Lasix 20mg IV x1 to help mobilize pulmonary edema. Will recheck CXR in am. Weight trending down. Output increased with Lasix yesterday. Continue with supplemental O2, weaning as able. Encourage oral intake. <Lawrence Vanessa - Last Filed: 08/27/17 08:21> Exam Vital signs: Temperature 95.7 F L 08/26/17 23:09 Pulse Rate 74 08/27/17 01:00 Respiratory Rate 18 08/26/17 23:09 Blood Pressure 135/72 08/26/17 23:09 Pulse Oximetry 95 08/26/17 23:09 Inpatient Medications: Generic Name Dose Route Start Last Admin Trade Name Freq PRN Reason Stop Dose Admin Acetaminophen 650 mg 08/15/17 19:04 08/22/17 08:28 Tylenol PO 650 mg Q5H PRN Administration Discomfort Amiodarone HCl 200 mg 08/26/17 09:00 08/26/17 09:59 Pacerone PO 200 mg DAILY [facility] Administration Aspirin 81 mg 08/16/17 09:00 08/26/17 09:59 Ecotrin PO 81 mg DAILY [facility] Administration Bisacodyl 10 mg 08/22/17 17:05 Dulcolax RECTALLY DAILY PRN Constipation Clopidogrel Bisulfate 75 mg 08/17/17 09:00 08/26/17 09:59 Plavix PO 75 mg DAILY [facility] Administration Cyanocobalamin 1,000 mcg 08/17/17 09:00 08/24/17 08:59 Vit. B-12 IM 1,000 mcg Abarca [facility] Administration Dextrose 10 ml 08/24/17 21:50 D50%W IVP PRN PRN Hypoglycemia Docusate Sodium 100 mg 08/16/17 09:00 08/26/17 10:01 Colace PO 100 mg DAILY [facility] Administration Enoxaparin Sodium 40 mg 08/17/17 04:00 08/26/17 10:00 Lovenox SQ 40 mg DAILY [facility] Administration Glucose 37.5 gm 08/24/17 21:50 Glutose 15 PO PRN PRN Hypoglycemia Sodium Chloride 1,000 mls @ 100 mls/hr 08/26/17 12:45 08/27/17 03:29 1/2 Normal Saline IV 100 mls/hr .Q10H [facility] Administration Ceftriaxone Sodium 1 g/ Sodium 100 mls @ 200 mls/hr 08/26/17 16:15 08/26/17 16:39 Chloride IV Infused Q24H [facility] Infusion Insulin Aspart 1 - 5 unit 08/24/17 21:50 08/26/17 16:18 Novolog SQ 2 unit SS PRN Administration Hyperglycemia Protocol Levothyroxine Sodium 50 mcg 08/18/17 06:30 08/27/17 05:44 Synthroid PO 50 mcg ACB [facility] Administration Lidocaine HCl 21 mg 08/25/17 14:30 08/26/17 15:58 Xylocaine-Mpf 1% Vial IJ Not Given Q24H [facility] Memantine 10 mg 08/16/17 09:00 08/26/17 20:23 Namenda PO 10 mg BID [facility] Administration Midodrine 5 mg 08/18/17 11:00 08/27/17 06:00 Proamatine PO 5 mg 0700,1100,1500 [facility] Administration Pom Janumet 50-500 1 tab 08/26/17 09:45 08/26/17 14:55 PO 1 tab DAILY [facility] Administration Ondansetron HCl 4 mg 08/15/17 19:04 08/23/17 09:42 Zofran IVP 4 mg Q6H PRN Administration Nausea &/or vomiting Polyethylene Glycol 17 gm 08/21/17 09:00 08/26/17 12:18 Miralax PO Not Given DAILY [facility] Senna/Docusate Sodium 1 tab 08/15/17 19:04 08/26/17 09:59 Senna Plus Tablet PO 1 tab BID PRN Administration Constipation Sodium Chloride 10 - 80 ml 08/15/17 15:23 08/26/17 15:57 Iv Flush IVF 10 ml PRN PRN Administration Flushing Sodium Chloride 500 ml 08/15/17 15:35 08/21/17 02:54 Normal Saline IV 500 ml PRN PRN Administration Sodium Chloride 10 ml 08/15/17 19:04 08/24/17 15:09 Iv Flush IV 10 ml PRN PRN Administration Flushing Sodium Chloride 2 spray 08/18/17 18:44 08/26/17 20:33 Deep Sea Nasal Moisturizing [place] EA NOSTRIL Not Given QID [facility] Sodium Phosphate 1 enema 08/22/17 10:00 Fleet Enema MT PRN PRN Discontinued Medications Generic Name Dose Route Start Last Admin Trade Name Freq PRN Reason Stop Dose Admin Acetaminophen 650 mg 08/15/17 19:04 Tylenol Supp MT Q5H PRN Pain Acetazolamide 500 mg 08/21/17 12:26 08/21/17 14:27 Diamox PO 08/21/17 12:27 500 mg O ONE Administration Amiodarone HCl 100 mg 08/19/17 15:30 08/25/17 08:48 Pacerone PO Not Given DAILY [facility] Amiodarone HCl 150 mg 08/21/17 02:24 08/21/17 02:56 Amiodarone IV 08/21/17 02:25 150 mg O ONE Administration Ceftriaxone Sodium 1 g 08/25/17 14:30 08/26/17 14:56 Rocephin 1 Gm Vial IM Not Given Q24H [facility] Clopidogrel Bisulfate 75 mg 08/16/17 09:00 08/16/17 08:31 Plavix PO 75 mg DAILY [facility] Administration Cyanocobalamin 5,000 mcg 08/16/17 09:00 08/16/17 09:26 Vit. B-12 PO 5,000 mcg DAILY [facility] Administration Cyanocobalamin 0 mcg 08/17/17 09:00 Vit. B-12 PO DAILY [facility] Digoxin 125 mcg 08/17/17 12:00 08/19/17 08:57 Lanoxin PO 125 mcg DAILY [facility] Administration Digoxin 500 mcg 08/21/17 02:24 08/21/17 02:54 Lanoxin IVP 08/21/17 02:25 500 mcg O ONE Administration Diltiazem HCl 10 mg 08/18/17 21:55 08/18/17 22:19 Cardizem 25 Mg Inj IVP 08/18/17 21:56 10 mg O ONE Administration Furosemide 40 mg 08/18/17 12:16 08/18/17 12:26 Lasix 40 Mg/4 Ml IVP 08/18/17 12:17 40 mg Q6HR ONE Administration Furosemide 40 mg 08/18/17 20:00 08/18/17 20:44 Lasix 40 Mg/4 Ml IVP 08/18/17 20:01 40 mg ONE TIME ONE Administration Furosemide 20 mg 08/19/17 10:19 08/19/17 10:31 Lasix 20 Mg/2 Ml IVP 08/19/17 10:20 20 mg ONCE ONE Administration Furosemide 40 mg 08/19/17 17:00 08/20/17 11:15 Lasix 40 Mg/4 Ml IVP 40 mg Q8HR [facility] Administration Furosemide 40 mg 08/20/17 22:00 08/22/17 07:02 Lasix 40 Mg/4 Ml IVP 40 mg 0600,1400,2200 [facility] Administration Cefepime HCl 1 gm/ Sodium 100 mls @ 200 mls/hr 08/15/17 15:23 08/15/17 16:20 Chloride IV 08/15/17 15:52 Infused O ONE Infusion Sodium Chloride 1,000 mls @ 1,000 mls/hr 08/15/17 15:23 08/15/17 17:07 Normal Saline IV 08/15/17 16:22 Infused .Q1H ONE Infusion Sodium Chloride 1,000 mls @ 100 mls/hr 08/15/17 19:15 08/18/17 11:37 Normal Saline IV Infused .Q10H [facility] Infusion Cefepime HCl 1 gm/ Sodium 100 mls @ 200 mls/hr 08/15/17 21:30 08/18/17 10:03 Chloride IV Infused Q6H [facility] Infusion Sodium Chloride 500 mls @ 500 mls/hr 08/15/17 22:59 08/15/17 23:20 Normal Saline IV 08/15/17 23:58 Not Given .Q1H ONE Cefepime HCl 1 gm/ Sodium 100 mls @ 200 mls/hr 08/18/17 16:00 Chloride IV Q6H [facility] Ceftriaxone Sodium 1 g/ Sodium 100 mls @ 200 mls/hr 08/18/17 14:45 08/24/17 15:42 Chloride IV Infused Q24H [facility] Infusion Diltiazem HCl 125 mg/ Sodium 125 mls @ 5 mls/hr 08/18/17 23:00 08/19/17 13:52 Chloride IV 0 mls/hr .Q24H [facility] Infusion Protocol Amiodarone HCl 450 mg/ Sodium 250 mls @ 33.33 mls/hr 08/19/17 12:00 08/19/17 18:00 Chloride IV 08/19/17 18:00 0.99 mg/min .Q7H31M [facility] 33.33 mls/hr 1 MG/MIN Infusion Amiodarone HCl 900 mg/ Sodium 500 mls @ 16.66 mls/hr 08/19/17 18:00 Chloride IV .Q24H [facility] 0.5 MG/MIN Amiodarone HCl 150 mg/ Sodium 103 mls @ 618 mls/hr 08/19/17 11:57 08/19/17 12 :52 Chloride IV 08/19/17 12:06 Infused O ONE Infusion Potassium Chloride 10 meq in 100 mls @ 100 mls/hr 08/20/17 05:37 08/20/17 08: 07 Potassium Chloride Premix IV 08/20/17 06:36 Infused O ONE Infusion Lidocaine HCl 10 mg/ Potassium 100 mls @ 50 mls/hr 08/20/17 10:30 08/20/17 19 :55 Chloride 10 meq/ Sodium IV 08/20/17 18:57 Infused Chloride .Q2H [facility] Infusion Sodium Chloride 1,000 mls @ 75 mls/hr 08/24/17 15:45 08/25/17 05:40 1/2 Normal Saline IV 08/25/17 05:04 Infused .[id number] [facility] Infusion Sodium Chloride 1,000 mls @ 250 mls/hr 08/25/17 08:45 08/25/17 09:40 Normal Saline IV 08/25/17 09:44 Not Given .Q4H [facility] Levothyroxine Sodium 50 mcg 08/16/17 06:30 08/17/17 05:58 Synthroid PO 50 mcg ACB [facility] Administration Lidocaine HCl 2.1 mg 08/25/17 14:30 Xylocaine-Mpf 1% Vial IJ Q24H [facility] Metoprolol Tartrate 25 mg 08/17/17 03:29 08/17/17 03:59 Lopressor PO 25 mg Q6H PRN Administration Midodrine 5 mg 08/15/17 21:00 08/17/17 08:59 Proamatine PO 5 mg TID [facility] Administration Midodrine 5 mg 08/17/17 09:00 08/18/17 09:28 Proamatine PO 08/18/17 10:00 5 mg TID [facility] Administration Non-Formulary Medication 5,000 mcg 08/16/17 09:00 Cyanocobalamin (Vitamin B-12) [B-12] SL DAILY [facility] Non-Formulary Medication 28 mg 08/16/17 09:00 Memantine Hcl [Namenda Xr] PO DAILY [facility] Non-Formulary Medication 1 tab 08/15/17 21:00 Sitagliptin Phos/Metformin Hcl [Janumet 50-500 Mg Tablet] PO BID [facility] Pharmacy Consult 1 each 08/21/17 22:40 Pharmacy Consult - Fall Risk 08/21/17 22:41 ONE TIME ONE Potassium Chloride 40 meq 08/19/17 15:36 K-Dur 20 Meq Tablet PO 08/19/17 15:37 O ONE Potassium Chloride 40 meq 08/20/17 05:37 08/20/17 05:44 K-Dur 20 Meq Tablet PO 08/20/17 05:38 40 meq O ONE Administration Potassium Chloride 20 meq 08/20/17 17:30 08/22/17 12:14 K-Dur 20 Meq Tablet PO 20 meq TIDWM [facility] Administration - Urinary Catheter Management Urethral Cath placed during this visit: no Results 08/26/17 04:55 08/27/17 04:08 Cardiac Enzymes 08/27/17 Range/Units 04:08 AST 17 (14-36) U/L Comprehensive Metabolic Panel 08/27/17 Range/Units 04:08 Sodium 146 H (134-144) MEQ/L Potassium 4.0 (3.6-5) MEQ/L Chloride 105 (98-107) MEQ/L Carbon Dioxide 30 (22-30) MEQ/L BUN 40.0 H (7-17) MG/DL Creatinine 0.8 (0.7-1.2) mg/dL Glucose 127 H (65-110) MG/DL Calcium 9.0 (8.4-10.2) MG/DL AST 17 (14-36) U/L ALT 9 (1-35) U/L Alkaline Phosphatase 92 (38-126) U/L Total Protein 6.0 L (6.3-8.2) g/dL Albumin 3.0 L (3.5-5.0) g/dL Intake and Output 08/26/17 08/27/17 08/27/17 22:59 06:59 14:59 Intake Total 430 / 430 980 / 980 Output Total 350 / 350 Balance 430 / 430 630 / 630 Intake: IV 120 / 120 980 / 980 1/2 Ns 1,000 ml @ 100 mls/hr IV 20 / 20 980 / 980 .Q10H [facility] Rx#:[id number] Ceftriaxone 1 g In Ns 100 ml @ 100 / 100 200 mls/hr IV Q24H [facility] Rx#: [id number] Oral 310 / 310 Output: Urine 150 / 150 Urine Amount (Catheter) 200 / 200 Other: Urine Color Dark Yellow Stool Consistency Soft Size of Bowel Movement Large Assessment and Plan - Assessment and Plan (1) Atrial fibrillation with RVR Current visit: Yes Status: Acute (2) Atherosclerotic heart disease of [place] coronary artery without angina pectoris Current visit: Yes Status: Chronic (3) Nonrheumatic aortic valve stenosis Current visit: Yes Status: Chronic (4) Syncope and collapse Current visit: Yes Status: Chronic (5) Hypotension Current visit: Yes Status: Chronic (6) Type 2 diabetes mellitus without complications Current visit: Yes Status: Chronic (7) Diastolic CHF Current visit: Yes Status: Acute - Attestation Attestation Narrative: 08/27/17 08:21Recommendation After examining the patient I agree with the above assessment. I am involved in the formulation of the patient's plan of care. Hospital Course Summary Disclaimer: The visit summary below is not to be considered part of the above Progress Note.
[2017-08-20] MEDS: POTASSIUM CHLORIDE IV SCH ×4 (11:40→18:51)
[2017-08-20] MEDS: LIDOCAINE IV SCH ×4 (11:40→18:51)
[2017-08-20] MEDS: NS IV SCH ×4 (11:40→18:51)
--- NOTE | 2017-08-20 12:08 | Progress Note ---
- Date 08/20/17 Subjective: F/U: Sepsis secondary to UTI, E coli UTI Siting up in bed when I came in - awake and alert. Able to communicate with short phrases. Did readily become tired and less responsive. She has hard time saying how breathing feels-is slight short and congested. Cough reported. No nausea. Oral intake has improved. Stool charted yesterday. Weight trending down. Sodium with increase and potassium decreased secondary to IV Lasix. Objective Vital signs: Temperature 97.3 F 08/20/17 07:45 Pulse Rate 72 08/20/17 08:15 Respiratory Rate 16 08/20/17 08:15 Blood Pressure 116/55 08/20/17 08:00 Pulse Oximetry 96 08/20/17 08:15 Height/Weight/BMI: Height 1.65 m Weight 62.3 kg Body Mass Index 25.2 - Constitutional Present: well nourished, well developed, average body habitus - Routine HEENT Exam Head: Present: normocephalic, atraumatic Eye: Present: EOMI, PERRL ENT: Present: mucous membranes moist - Routine Respiratory Exam Present: decreased breath sounds, wheezes, crackles. Absent: respiratory distress - Routine Cardiovascular Exam Present: RRR - Routine Abdominal Exam Present: soft, normoactive bowel sounds, non distended, non tender. Absent: guarding - Routine Exam Comments: Ortiz present - Routine Extremities Exam Present: edema (+2), pulses intact. Absent: cyanosis, clubbing - Routine Skin Exam Present: dry, warm - Routine Neurological Exam Present: alert, moving all extremities, vision grossly intact, hearing grossly intact, normal speech. Absent: altered mental status - Routine Psychiatric Exam Present: cooperative Results - Labs CBC & Chem 7: 08/20/17 04:11 08/20/17 04:11 Assessment and Plan Assessment and Plan: Assessment Sepsis secondary to UTI as indicated by tachycardia, fever, altered level of consciousness and hypotension. UTI- Recurrent, frequent -- E coli growing from culture day before admission Chronic urinary retention--Indwelling ortiz- since 02/2017 - changed 08/15/17. Encephalopathy-secondary to sepsis and UTI Pulmonary edema Bilateral pleural effusions- 08/18/17 Acute hypoxic respiratory insufficiency secondary to pulmonary edema Hypernatremia (not POA) Hypokalemia (not POA) Generalized weakness and debility- Acute due to illness Paroxysmal atrial fibrillation Developed RVR 08/18 S/P Cardioversion on 08/19 Severe aortic stenosis Orthostatic hypotension Diabetes mellitus, type 2 CAD H/O Chronic kidney disease, stage III. Hypothyroidism Dementia Chronic constipation Osteoarthritis Hx DVT Hx CVA- 2011 Plan Will start KCL bolus at 50cc/hr as potassium with significant decrease due to Lasix. Weight with decreased. CXR without change, but O2 sats improved with less O2 flow (3L). Continue ceftriaxone for urinary coverage. Encouraging that oral drive increasing. Likely transfer to medical floor later today. Will have PT/OT restart work tomorrow. Will check BMP in am secondary to electrolyte disturbance and medication use. Will repeat CBC secondary to resolving sepsis. Case discussed with CCU nursing and patient's daughter. Time spent with patient care 25 minutes. DVT Prophylaxis: SCD's, Lovenox Resuscitation Status: Do Not Resuscitate - Time spent with patient Time with patient PN: 25 minutes - Physician Narrative Physician: Sunny Mesa MD Narrative: Date: 08/20/17 Time: 1202 Hospital Course Summary Disclaimer: The visit summary below is not to be considered part of the above Progress Note. Hospital Course: 08/15/[address] [facility] status under the care of Dr. Martinez. 1L NS initiated in ED. Will continue NS 100cc/hr for hydration. Cefepime 1g IV given in ED. Continue empiric coverage for urinary pathogens with Cefepime IV Q6H. UA culture from 08/14/17 revealing gram negative rods. Monitor for sensitives and new UA culture results. Blood culture obtained and results pending. Monitor closely on telemetry. Continue home medications. Monitor blood pressure closely. Monitor daily weight and urinary output closely for signs of fluid overload. Renal function stable. Upon discharge, patient's care will be returned to Dr Caballero. Patient is a DNR. 08/17/17 Sepsis secondary to UTI as indicated by tachycardia, fever, altered level of consciousness and hypotension. -IVF -Repeat lactate-normalized -Mental status improving UTI -Recurrent, frequent -Indwelling Ortiz- since 02/2017 - changed 08/15/17. -On cefepime -Bl cx NGTD -Urine cx from 08/15 NGTD, the one done on 08/14 growing E. coli sensitive to cefepime Altered level of consciousness. -This is usual for her when she gets an UTI per daughter -She does have underlying dementia -This is improved today Generalized weakness and debility. -Due to UTI -consult PT PAF -Not on OAC -Metoprolol 25mg q6hr prn started by nighttime MD -With her hypotension, she may not tolerate this. -Will try low dose digoxin and monitor History of CVA - 2011. -On aspirin and Plavix Dementia. -On Namenda XR Hypothyroid -continue levothyroxine -Last free T4 1.84 in November 2016 Severe aortic stenosis. -SKYE 0.7cm2 per HC 08/2016 Orthostatic hypotension -Continue midodrine History of DVT to left arm. -S/P Mechanical clot removal Diabetes mellitus, type 2. -Continue Janumet -Last A1C I can find was in november 2016 and was 5.3% Constipation. -On Colace daily H/O Chronic kidney disease, stage III. -Creatinine normal here and I do not see any elevations in recent history CAD -H/O stents 2016 -HC 08/2016 showing LVEF 65%, SKYE 0.7cm2, 70-80% LAD, 30% LCx, 70-75% RCA -CHRIS to RCA 09/2016 -CHRIS to LAD 01/2017 Hypothyroidism. -Continue levothyroxine Osteoarthritis. 08/18/17 Oxygen needs continue to increase. Chest X-ray this morning does revel small bilateral pleural effusions and pulmonary edema. Lasix 40 mg IV x1 given this morning, will give repeat 40mg IV Lasix this evening. IVF stopped. Continue to monitor urinary output via Ortiz cath (chronic- changed 08/15) Trend daily weights. she is up 5 Kg from admission Change cefepime for ceftriaxone for treatment of Ecoli UTI. Continue to monitor Accu-Cheks Recheck CBC in am due to UTI/Resolving sepsis. Will recheck BMP in am secondary to Lasix use. Lovenox subcutaneous daily for DVT prophylaxis 08/19/17 Transferred to CCU overnight secondary to Afib with RVR, diltiazem drip started. HR showing improvement. Will consult with Dr Vanessa for treatment recommendations for afib. Patient able to undergo successful cardioversion. Amiodarone started to help maintain sinus. Lasix increase by Dr Vanessa to 40mg IV q 8 hours. Will continue with Rocephin for urinary coverage. Lasix 20mg IV x1 to help mobilize pulmonary edema. Will recheck CXR in am. Weight trending down. Output increased with Lasix yesterday. Continue with supplemental O2, weaning as able. Encourage oral intake. 08/20/17 Will start KCL bolus at 50cc/hr as potassium with significant decrease due to Lasix. Weight with decreased. CXR without change, but O2 sats improved with less O2 flow (3L). Continue ceftriaxone for urinary coverage. Encouraging that oral drive increasing. Likely transfer to medical floor later today. Will have PT/OT restart work tomorrow.
[2017-08-20] MEDS: CEFTRIAXONE 1 G in NS 100 ML IV SCH (14:51)
[2017-08-21] MEDS ORDERED: DIGOXIN 500 MCG/2 ML INJECTION IVP ONE (02:24)
[2017-08-21] MEDS ORDERED: AMIODARONE 150mg/3ml INJECTION IV ONE (02:24)
[2017-08-21] MEDS: NS FLUSH BAG 500ml IV PRN (02:54)
[2017-08-21] MEDS: SALINE FLUSH 10ml SYRINGE IVF PRN (02:57)
[2017-08-21] MEDS: FUROSEMIDE 40 MG/4 ML INJECTION IVP SCH ×3 (06:34→21:23)
[2017-08-21] MEDS: LEVOTHYROXINE 50 MCG TABLET PO SCH (06:34)
[2017-08-21] MEDS: MIDODRINE 5 MG TABLET PO SCH ×3 (06:34→14:28)
[2017-08-21] MEDS: DOCUSATE SODIUM 100 MG CAPSULE PO SCH (09:44)
[2017-08-21] MEDS: AMIODARONE 200 MG TABLET PO SCH (09:44)
[2017-08-21] MEDS: ASPIRIN *EC* 81 MG TABLET PO SCH (09:44)
[2017-08-21] MEDS: CLOPIDOGREL 75 MG TABLET PO SCH (09:44)
[2017-08-21] MEDS: POLYETHYL GLYCOL 3350 17gm PACKET PO SCH (09:44)
[2017-08-21] MEDS: MEMANTINE 10 MG TABLET PO SCH ×2 (09:45→21:24)
[2017-08-21] MEDS: SALINE 0.65% NASAL SPRAY 44 ML BOTTLE EA NOSTRIL SCH ×4 (09:46→21:24)
[2017-08-21] MEDS: ENOXAPARIN 40 MG/0.4 ML INJECTION SQ SCH (09:46)
--- NOTE | 2017-08-21 10:03 | XRay Report ---
Indication: CHF PROCEDURE: XR chest 1V: Encounter: Initial Comparison: August 20, 2017 Findings: Diffuse bilateral airspace disease is slightly improved overall with less density but a similar distribution of involvement. No pneumothorax or significant pleural effusion seen. Heart size and mediastinal contours are stable. Pulmonary vascularity remains indistinct. Impression: Overall slight improvement in appearance of the chest may be due to resolving edema. .
[2017-08-21] MEDS ORDERED: acetaZOLAMIDE 250 MG TABLET PO ONE (12:26)
--- NOTE | 2017-08-21 12:34 | Progress Note ---
- Date 08/21/17 Subjective: F/U: Sepsis secondary to UTI, E coli UTI Resting in bed. Will open eyes to verbal stimuli, answers questions with brief phrases. Breathing feels fair. Difficult to get much information from patient. Nursing reports she is refusing foods--shakes her head adamantly no when offered food. Resistant to taking oral medications. O2 needs decreased - saturations improving to mid to upper 90's on 2L. Objective Vital signs: Temperature 98.2 F 08/21/17 12:00 Pulse Rate 75 08/21/17 12:00 Respiratory Rate 16 08/21/17 12:00 Blood Pressure 100/53 08/21/17 12:00 Pulse Oximetry 99 08/21/17 12:00 Height/Weight/BMI: Height 1.65 m Weight 62.3 kg Body Mass Index 25.2 - Constitutional Present: well nourished, well developed, average body habitus Comments: Appears tired and weak. Looks comfortable. - Routine HEENT Exam Head: Present: normocephalic, atraumatic Eye: Present: EOMI, PERRL ENT: Present: mucous membranes moist - Routine Respiratory Exam Present: decreased breath sounds (Improving air movement). Absent: rales, respiratory distress, rhonchi, wheezes, crackles - Routine Cardiovascular Exam Present: RRR - Routine Abdominal Exam Present: soft, non distended, non tender. Absent: normoactive bowel sounds ( Decreased, but present) - Routine Extremities Exam Present: no edema, pulses intact. Absent: cyanosis, clubbing - Routine Musculoskeletal Exam Musculoskeletal: Present: no clubbing or cyanosis - Routine Skin Exam Present: dry, warm - Routine Neurological Exam Present: vision grossly intact, hearing grossly intact - Routine Psychiatric Exam Absent: anxious, agitated Comments: Follows simple commands Results - Labs CBC & Chem 7: 08/21/17 04:08 08/21/17 04:08 Assessment and Plan Assessment and Plan: Assessment Sepsis secondary to UTI as indicated by tachycardia, fever, altered level of consciousness and hypotension. UTI - Recurrent, frequent -- E coli growing from culture day before admission Chronic urinary retention--Indwelling Ramirez - since 02/2017 - changed 08/15/17. Encephalopathy -secondary to sepsis and UTI Pulmonary edema Bilateral pleural effusions - 08/18/17 Acute hypoxic respiratory insufficiency secondary to pulmonary edema Hypernatremia (not POA) Hypokalemia (not POA) Generalized weakness and debility - Acute due to illness Paroxysmal atrial fibrillation Developed RVR 08/18 S/P Cardioversion on 08/19 Severe aortic stenosis Orthostatic hypotension Diabetes mellitus, type 2 CAD H/O Chronic kidney disease, stage III. Hypothyroidism Dementia Chronic constipation Osteoarthritis Hx DVT Hx CVA- 2011 Plan CXR showing gradual improvement. O2 needs decreasing (down to 2L, and weaning). Creatinine stable. Potassium improved to 3.7. Will decrease IV Lasix to 40mg twice a day - worry for overdiuresis with patients decreased oral drive. Diamox 500mg x1 as CO2 increasing. Encourage oral intake. Encourage activities with therapy. Will continue Rocephin for urinary coverage. Recheck CXR in am. Check BMP in am secondary to diuretic use. Monitor CBC secondary to resolving sepsis. Case discussed with nursing and CM. Time spent with patient care 25 minutes. DVT Prophylaxis: SCD's, Lovenox Resuscitation Status: Do Not Resuscitate - Time spent with patient Time with patient PN: 25 minutes - Physician Narrative Physician: Sunny Mesa MD Narrative: Date: 08/21/17 Time: 1231 Hospital Course Summary Disclaimer: The visit summary below is not to be considered part of the above Progress Note. Hospital [facility]: [facility]. 1L NS initiated in ED. Will continue NS 100cc/hr for hydration. Cefepime 1g IV given in ED. Continue empiric coverage for urinary pathogens with Cefepime IV Q6H. UA culture from 08/14/17 revealing gram negative rods. Monitor for sensitives and new UA culture results. Blood culture obtained and results pending. Monitor closely on telemetry. Continue home medications. Monitor blood pressure closely. Monitor daily weight and urinary output closely for signs of fluid overload. Renal function stable. Upon discharge, patient's care will be returned to Dr Caballero. Patient is a DNR. 08/17/17 Sepsis secondary to UTI as indicated by tachycardia, fever, altered level of consciousness and hypotension. -IVF -Repeat lactate-normalized -Mental status improving UTI -Recurrent, frequent -Indwelling Ramirez- since 02/2017 - changed 08/15/17. -On cefepime -Bl cx NGTD -Urine cx from 08/15 NGTD, the one done on 08/14 growing E. coli sensitive to cefepime Altered level of consciousness. -This is usual for her when she gets an UTI per daughter -She does have underlying dementia -This is improved today Generalized weakness and debility. -Due to UTI -consult PT PAF -Not on OAC -Metoprolol 25mg q6hr prn started by nighttime MD -With her hypotension, she may not tolerate this. -Will try low dose digoxin and monitor History of CVA - 2011. -On aspirin and Plavix Dementia. -On Namenda XR Hypothyroid -continue levothyroxine -Last free T4 1.84 in November 2016 Severe aortic stenosis. -SKYE 0.7cm2 per HC 08/2016 Orthostatic hypotension -Continue midodrine History of DVT to left arm. -S/P Mechanical clot removal Diabetes mellitus, type 2. -Continue Janumet -Last A1C I can find was in november 2016 and was 5.3% Constipation. -On Colace daily H/O Chronic kidney disease, stage III. -Creatinine normal here and I do not see any elevations in recent history CAD -H/O stents 2016 -HC 08/2016 showing LVEF 65%, SKYE 0.7cm2, 70-80% LAD, 30% LCx, 70-75% RCA -CHRIS to RCA 09/2016 -CHRIS to LAD 01/2017 Hypothyroidism. -Continue levothyroxine Osteoarthritis. 08/18/17 Oxygen needs continue to increase. Chest X-ray this morning does revel small bilateral pleural effusions and pulmonary edema. Lasix 40 mg IV x1 given this morning, will give repeat 40mg IV Lasix this evening. IVF stopped. Continue to monitor urinary output via Ramirez cath (chronic- changed 08/15) Trend daily weights. she is up 5 Kg from admission Change cefepime for ceftriaxone for treatment of Ecoli UTI. Continue to monitor Accu-Cheks Recheck CBC in am due to UTI/Resolving sepsis. Will recheck BMP in am secondary to Lasix use. Lovenox subcutaneous daily for DVT prophylaxis 08/19/17 Transferred to CCU overnight secondary to Afib with RVR, diltiazem drip started. HR showing improvement. Will consult with Dr Vanessa for treatment recommendations for afib. Digoxin level slightly subtherapeutic at 0.7 - could be increased. Will continue with Rocephin for urinary coverage. Lasix 20mg IV x1 to help mobilize pulmonary edema. Will recheck CXR in am. Weight trending down. Output increased with Lasix yesterday. Continue with supplemental O2, weaning as able. Encourage oral intake. 08/20/17 Will start KCL bolus at 50cc/hr as potassium with significant decrease due to Lasix. Weight with decreased. CXR without change, but O2 sats improved with less O2 flow (3L). Continue ceftriaxone for urinary coverage. Encouraging that oral drive increasing. Likely transfer to medical floor later today. Will have PT/OT restart work tomorrow. 08/21/17 CXR showing gradual improvement. O2 needs decreasing (down to 2L, and weaning). Creatinine stable. Potassium improved to 3.7. Will decrease IV Lasix to 40mg twice a day - worry for overdiuresis with patients decreased oral drive. Diamox 500mg x1 as CO2 increasing. Encourage oral intake. Encourage activities with therapy. Will continue Rocephin for urinary coverage.
[2017-08-21] MEDS: CEFTRIAXONE 1 G in NS 100 ML IV SCH (14:27)
--- NOTE | 2017-08-21 15:14 | Cardiology Progress Note ---
<Ismael,Sandra M - Last Filed: 08/22/17 15:39> Subjective Principal diagnosis: AFib RVR Interval history: Margarita is seen in follow up for AFib with RVR. She is seen in her room on Medical She denies cardiac complaints Exam Vital signs: Temperature 98.2 F 08/21/17 12:00 Pulse Rate 75 08/21/17 15:00 Respiratory Rate 16 08/21/17 15:00 Blood Pressure 114/63 08/21/17 15:00 Pulse Oximetry 97 08/21/17 15:00 Inpatient Medications: Generic Name Dose Route Start Last Admin Trade Name Freq PRN Reason Stop Dose Admin Acetaminophen 650 mg 08/15/17 19:04 08/19/17 19:46 Tylenol PO 650 mg Q5H PRN Administration Discomfort Amiodarone HCl 100 mg 08/19/17 15:30 08/21/17 09:44 Pacerone PO 100 mg DAILY PAOLA Administration Aspirin 81 mg 08/16/17 09:00 08/21/17 09:44 Ecotrin PO 81 mg DAILY PA[facility]A Administration Clopidogrel Bisulfate 75 mg 08/17/17 09:00 08/21/17 09:44 Plavix PO 75 mg DAILY PAOLA Administration Cyanocobalamin 1,000 mcg 08/17/17 09:00 08/17/17 09:00 Vit. B-12 IM 1,000 mcg Abarca PAOLA Administration Docusate Sodium 100 mg 08/16/17 09:00 08/21/17 09:44 Colace PO 100 mg DAILY PAOLA Administration Enoxaparin Sodium 40 mg 08/17/17 04:00 08/21/17 09:46 Lovenox SQ 40 mg DAILY PAOLA Administration Furosemide 40 mg 08/20/17 22:00 08/21/17 14:27 Lasix 40 Mg/4 Ml IVP 40 mg 0600,1400,2200 PAOLA Administration Ceftriaxone Sodium 1 g/ Sodium 100 mls @ 200 mls/hr 08/18/17 14:45 08/21/17 14:27 Chloride IV 200 mls/hr Q24H PAOLA Administration Levothyroxine Sodium 50 mcg 08/18/17 06:30 08/21/17 06:34 Synthroid PO 50 mcg ACB PAOLA Administration Memantine 10 mg 08/16/17 09:00 08/21/17 09:45 Namenda PO 10 mg BID PAOLA Administration Midodrine 5 mg 04/30/18 11:00 08/21/17 14:28 Proamatine PO 5 mg 0700,1100,1500 PAOLA Administration Ondansetron HCl 4 mg 08/15/17 19:04 Zofran IVP Q6H PRN Nausea &/or vomiting Polyethylene Glycol 17 gm 08/21/17 09:00 08/21/17 09:44 Miralax PO 17 gm DAILY PAOLA Administration Potassium Chloride 20 meq 08/20/17 17:30 08/21/17 12:03 K-Dur 20 Meq Tablet PO 20 meq TIDWM PAOLA Administration Senna/Docusate Sodium 1 tab 08/15/17 19:04 Senna Plus Tablet PO BID PRN Constipation Sodium Chloride 10 - 80 ml 08/15/17 15:23 08/21/17 02:57 Iv Flush IVF 10 ml PRN PRN Administration Flushing Sodium Chloride 500 ml 08/15/17 15:35 08/21/17 02:54 Normal Saline IV 500 ml PRN PRN Administration Sodium Chloride 10 ml 08/15/17 19:04 Iv Flush IV PRN PRN Flushing Sodium Chloride 2 spray 08/18/17 18:44 08/21/17 12:03 Deep Sea Nasal Moisturizing [place] EA NOSTRIL 2 spray QID PAOLA Administration Discontinued Medications Generic Name Dose Route Start Last Admin Trade Name Freq PRN Reason Stop Dose Admin Acetaminophen 650 mg 08/15/17 19:04 Tylenol Supp [place] Q5H PRN Pain Acetazolamide 500 mg 08/21/17 12:26 08/21/17 14:27 Diamox PO 08/21/17 12:27 500 mg O ONE Administration Amiodarone HCl 150 mg 08/21/17 02:24 08/21/17 02:56 Amiodarone IV 08/21/17 02:25 150 mg O ONE Administration Clopidogrel Bisulfate 75 mg 08/16/17 09:00 08/16/17 08:31 Plavix PO 75 mg DAILY PA[facility]A Administration Cyanocobalamin 5,000 mcg 08/16/17 09:00 08/16/17 09:26 Vit. B-12 PO 5,000 mcg DAILY PA[facility]A Administration Cyanocobalamin 0 mcg 08/17/17 09:00 Vit. B-12 PO DAILY PAOLA Digoxin 125 mcg 08/17/17 12:00 08/19/17 08:57 Lanoxin PO 125 mcg DAILY PA[facility]A Administration Digoxin 500 mcg 08/21/17 02:24 08/21/17 02:54 Lanoxin IVP 08/21/17 02:25 500 mcg O ONE Administration Diltiazem HCl 10 mg 08/18/17 21:55 08/18/17 22:19 Cardizem 25 Mg Inj IVP 08/18/17 21:56 10 mg O ONE Administration Furosemide 40 mg 08/18/17 12:16 08/18/17 12:26 Lasix 40 Mg/4 Ml IVP 08/18/17 12:17 40 mg Q6HR ONE Administration Furosemide 40 mg 08/18/17 20:00 08/18/17 20:44 Lasix 40 Mg/4 Ml IVP 08/18/17 20:01 40 mg ONE TIME ONE Administration Furosemide 20 mg 08/19/17 10:19 08/19/17 10:31 Lasix 20 Mg/2 Ml IVP 08/19/17 10:20 20 mg ONCE ONE Administration Furosemide 40 mg 08/19/17 17:00 08/20/17 11:15 Lasix 40 Mg/4 Ml IVP 40 mg Q8HR PA[facility]A Administration Cefepime HCl 1 gm/ Sodium 100 mls @ 200 mls/hr 08/15/17 15:23 08/15/17 16:20 Chloride IV 08/15/17 15:52 Infused O ONE Infusion Sodium Chloride 1,000 mls @ 1,000 mls/hr 08/15/17 15:23 08/15/17 17:07 Normal Saline IV 08/15/17 16:22 Infused .Q1H ONE Infusion Sodium Chloride 1,000 mls @ 100 mls/hr 08/15/17 19:15 08/18/17 11:37 Normal Saline IV Infused .Q10H [facility]A Infusion Cefepime HCl 1 gm/ Sodium 100 mls @ 200 mls/hr 08/15/17 21:30 08/18/17 10:03 Chloride IV Infused Q6H [facility]A Infusion Sodium Chloride 500 mls @ 500 mls/hr 08/15/17 22:59 08/15/17 23:20 Normal Saline IV 08/15/17 23:58 Not Given .Q1H ONE Cefepime HCl 1 gm/ Sodium 100 mls @ 200 mls/hr 08/18/17 16:00 Chloride IV Q6H PAOLA Diltiazem HCl 125 mg/ Sodium 125 mls @ 5 mls/hr 08/18/17 23:00 08/19/17 13:52 Chloride IV 0 mls/hr .Q24H PA[facility]A Infusion Protocol Amiodarone HCl 450 mg/ Sodium 250 mls @ 33.33 mls/hr 08/19/17 12:00 08/19/17 18:00 Chloride IV 08/19/17 18:00 0.99 mg/min .Q7H31M PAOLA 33.33 mls/hr 1 MG/MIN Infusion Amiodarone HCl 900 mg/ Sodium 500 mls @ 16.66 mls/hr 08/19/17 18:00 Chloride IV .Q24H PAOLA 0.5 MG/MIN Amiodarone HCl 150 mg/ Sodium 103 mls @ 618 mls/hr 08/19/17 11:57 08/19/17 12 :52 Chloride IV 08/19/17 12:06 Infused O ONE Infusion Potassium Chloride 10 meq in 100 mls @ 100 mls/hr 08/20/17 05:37 08/20/17 08: 07 Potassium Chloride Premix IV 08/20/17 06:36 Infused O ONE Infusion Lidocaine HCl 10 mg/ Potassium 100 mls @ 50 mls/hr 08/20/17 10:30 08/20/17 19 :55 Chloride 10 meq/ Sodium IV 08/20/17 18:57 Infused Chloride .Q2H [facility]A Infusion Levothyroxine Sodium 50 mcg 08/16/17 06:30 08/17/17 05:58 Synthroid PO 50 mcg ACB PA[facility]A Administration Metoprolol Tartrate 25 mg 08/17/17 03:29 08/17/17 03:59 Lopressor PO 25 mg Q6H PRN Administration Midodrine 5 mg 08/15/17 21:00 08/17/17 08:59 Proamatine PO 5 mg TID PAOLA Administration Midodrine 5 mg 08/17/17 09:00 08/18/17 09:28 Proamatine PO 08/18/17 10:00 5 mg TID PA[facility]A Administration Non-Formulary Medication 5,000 mcg 08/16/17 09:00 Cyanocobalamin (Vitamin B-12) [B-12] SL DAILY PA[facility]A Non-Formulary Medication 28 mg 08/16/17 09:00 Memantine Hcl [Namenda Xr] PO DAILY PA[facility]A Non-Formulary Medication 1 tab 08/15/17 21:00 Sitagliptin Phos/Metformin Hcl [Janumet 50-500 Mg Tablet] PO BID PAOLA Potassium Chloride 40 meq 08/19/17 15:36 K-Dur 20 Meq Tablet PO 08/19/17 15:37 O ONE Potassium Chloride 40 meq 08/20/17 05:37 08/20/17 05:44 K-Dur 20 Meq Tablet PO 08/20/17 05:38 40 meq O ONE Administration - Constitutional no acute distress, well nourished, cooperative - Routine HEENT Exam Head: Present: normocephalic ENT: Present: mucous membranes moist - Routine Neck Exam Absent: JVD, carotid bruit - Routine Chest/Breast/Axilla Exam Chest wall: Absent: tenderness - Routine Respiratory Exam Present: decreased breath sounds. Absent: dyspnea - Routine Cardiovascular Exam Present: RRR - Routine Abdominal Exam Present: soft, non tender - Routine Extremities Exam Present: no edema - Routine Skin Exam Present: intact, dry, warm - Routine Neurological Exam Present: alert. Absent: oriented X3 - Routine Psychiatric Exam Present: normal affect - Urinary Catheter Management Urethral Cath placed during this visit: yes, but has since been removed by the nurse Insertion date: 08/21/17 Insertion time: 12:30 Removal date: 08/21/17 Removal time: 12:00 Results 08/22/17 05:24 08/22/17 05:24 CBC 08/21/17 Range/Units 04:08 WBC 9.8 (4.5-11.0) T/MM3 RBC 3.39 L (4.00-5.20) M/MM3 Hgb 10.5 L D (12-16) GM/DL Hct 32.9 L (36-46) % Plt Count 298 (130-400) T/MM3 Neut # (Auto) 7.3 (1.8-7.7) T/MM3 Lymph # (Auto) 1.2 (1-4.8) T/MM3 [place] # (Auto) 0.7 (0-0.8) T/MM3 Eos # (Auto) 0.6 H (0-0.5) T/MM3 Baso # (Auto) 0.0 (0-0.2) T/MM3 Comprehensive Metabolic Panel 08/21/17 Range/Units 04:08 Sodium 146 H (134-144) MEQ/L Potassium 3.7 D (3.6-5) MEQ/L Chloride 103 (98-107) MEQ/L Carbon Dioxide 32 H (22-30) MEQ/L BUN 27.0 H (7-17) MG/DL Creatinine 0.9 (0.7-1.2) mg/dL Glucose 149 H (65-110) MG/DL Calcium 8.7 (8.4-10.2) MG/DL Intake and Output 08/21/17 08/21/17 08/21/17 06:59 14:59 22:59 Intake Total 50 / 50 Output Total 950 / 950 600 / 600 Balance -900 / -900 -600 / -600 Intake: Oral 50 / 50 Output: Urine 600 / 600 Urine Amount (Catheter) 950 / 950 Other: Urine Appearance Clear Cloudy Urine Color Yellow Yellow Stool Color Brown Stool Consistency Soft Formed Size of Bowel Movement Large # Incontinent Voids 1 # Incontinent Bowel Movements 1 Weight 137 lb 5.568 oz Patient Weight 08/22/17 06:59 Weight 137 lb 5.568 oz - Imaging and Cardiology Imaging & Cardiology Narrative: Date of Exam: 08/21/17 Ordering Provider: Sandra Guevara APRN Type of Exam(s): XR chest 1V Reason for Exam(s): CHF Indication: CHF PROCEDURE: XR chest 1V: Encounter: Initial Comparison: August 20, 2017 Findings: Diffuse bilateral airspace disease is slightly improved overall with less density but a similar distribution of involvement. No pneumothorax or significant pleural effusion seen. Heart size and mediastinal contours are stable. Pulmonary vascularity remains indistinct. Impression: Overall slight improvement in appearance of the chest may be due to resolving edema. 08/22/17 15:41 Assessment and Plan - Assessment and Plan (1) Atrial fibrillation with RVR Current visit: Yes Status: Acute (2) Atherosclerotic heart disease of [place] coronary artery without angina pectoris Current visit: Yes Status: Chronic (3) Nonrheumatic aortic valve stenosis Current visit: Yes Status: Chronic (4) Syncope and collapse Current visit: Yes Status: Chronic (5) Hypotension Current visit: Yes Status: Chronic (6) Type 2 diabetes mellitus without complications Current visit: Yes Status: Chronic (7) Diastolic CHF Current visit: Yes Status: Acute - Assessment and Plan 08/19/17 A Fib with RVR: History of PAF, asymptomatic - Takes Amiodarone 100mg daily, not given this admission - Amiodarone bolus and drip - Npo for possible DCCV - Converted to SR - Resume home Amiodarone 100mg PO daily and stop IV - EKG now - Stop Digoxin. - Check TSh and Mag DCHF: Diurese with Lasix 40mg IV q8h - CXR: Diffuse airspace opacities throughout both lungs. Probable small bilateral pleural effusions. Close interval follow-up is recommended. - K+ 3.3, replace CAD: Stable. continue current therapy, routine monitoring. - Continue Aspirin and Plavix Hypotension: Continue Midodrine Thank you for allowing us to participate in the care of this patient. 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 - CXR: No significant change in diffuse bilateral airspace disease which could represent edema, pneumonia, massive aspiration or pulmonary hemorrhage. - Continue Lasix 40mg IV q8h - K+ 2.9, Replace K+ 20meq po with meals TID - TSH, Mag WNL - Monitor renal and electrolytes 08/21/17 Went back into AFib overnight. - Given 150mg IV Amiodarone bolus and Digoxin 500mcg - Converted back this afternoon to SR - Continue Amiodarone at 100mg daily CXR: Overall slight improvement in appearance of the chest may be due to resolving edema. - Continue diuresis - Monitor renal and electrolytes Hospital Course Summary Disclaimer: The visit summary below is not to be considered part of the above Progress Note. Hospital Course: 08/15/17 Admit to [facility] [place] status under the care of Dr. Martinez. 1L NS initiated in ED. Will continue NS 100cc/hr for hydration. Cefepime 1g IV given in ED. Continue empiric coverage for urinary pathogens with Cefepime IV Q6H. UA culture from 08/14/17 revealing gram negative rods. Monitor for sensitives and new UA culture results. Blood culture obtained and results pending. Monitor closely on telemetry. Continue home medications. Monitor blood pressure closely. Monitor daily weight and urinary output closely for signs of fluid overload. Renal function stable. Upon discharge, patient's care will be returned to Dr Caballero. Patient is a DNR. 08/17/17 Sepsis secondary to UTI as indicated by tachycardia, fever, altered level of consciousness and hypotension. -IVF -Repeat lactate-normalized -Mental status improving UTI -Recurrent, frequent -Indwelling Ramirez- since 02/2017 - changed 08/15/17. -On cefepime -Bl cx NGTD -Urine cx from 08/15 NGTD, the one done on 08/14 growing E. coli sensitive to cefepime Altered level of consciousness. -This is usual for her when she gets an UTI per daughter -She does have underlying dementia -This is improved today Generalized weakness and debility. -Due to UTI -consult PT PAF -Not on OAC -Metoprolol 25mg q6hr prn started by nighttime MD -With her hypotension, she may not tolerate this. -Will try low dose digoxin and monitor History of CVA - 2011. -On aspirin and Plavix Dementia. -On Namenda XR Hypothyroid -continue levothyroxine -Last free T4 1.84 in November 2016 Severe aortic stenosis. -SKYE 0.7cm2 per 08/2016 Orthostatic hypotension -Continue midodrine History of DVT to left arm. -S/P Mechanical clot removal Diabetes mellitus, type 2. -Continue Janumet -Last A1C I can find was in november 2016 and was 5.3% Constipation. -On Colace daily H/O Chronic kidney disease, stage III. -Creatinine normal here and I do not see any elevations in recent history CAD -H/O stents 2016 -HC 08/2016 showing LVEF 65%, SKYE 0.7cm2, 70-80% LAD, 30% LCx, 70-75% RCA -CHRIS to RCA 09/2016 -CHRIS to LAD 01/2017 Hypothyroidism. -Continue levothyroxine Osteoarthritis. 08/18/17 Oxygen needs continue to increase. Chest X-ray this morning does revel small bilateral pleural effusions and pulmonary edema. Lasix 40 mg IV x1 given this morning, will give repeat 40mg IV Lasix this evening. IVF stopped. Continue to monitor urinary output via Ramirez cath (chronic- changed 08/15) Trend daily weights. she is up 5 Kg from admission Change cefepime for ceftriaxone for treatment of Ecoli UTI. Continue to monitor Accu-Cheks Recheck CBC in am due to UTI/Resolving sepsis. Will recheck BMP in am secondary to Lasix use. Lovenox subcutaneous daily for DVT prophylaxis 08/19/17 Transferred to CCU overnight secondary to Afib with RVR, diltiazem drip started. HR showing improvement. Will consult with Dr Vanessa for treatment recommendations for afib. Digoxin level slightly subtherapeutic at 0.7 - could be increased. Will continue with Rocephin for urinary coverage. Lasix 20mg IV x1 to help mobilize pulmonary edema. Will recheck CXR in am. Weight trending down. Output increased with Lasix yesterday. Continue with supplemental O2, weaning as able. Encourage oral intake. <Lawrence Vanessa - Last Filed: 08/28/17 14:02> Exam Vital signs: Temperature 98.0 F 08/28/17 08:00 Pulse Rate 70 08/28/17 11:00 Respiratory Rate 18 08/28/17 08:00 Blood Pressure 112/55 08/28/17 08:00 Pulse Oximetry 95 08/28/17 08:00 Inpatient Medications: Generic Name Dose Route Start Last Admin Trade Name Freq PRN Reason Stop Dose Admin Acetaminophen 650 mg 08/15/17 19:04 08/22/17 08:28 Tylenol PO 650 mg Q5H PRN Administration Discomfort Amiodarone HCl 200 mg 08/26/17 09:00 08/28/17 09:37 Pacerone PO 200 mg DAILY PAOLA Administration Aspirin 81 mg 08/16/17 09:00 08/28/17 09:37 Ecotrin PO 81 mg DAILY PAOLA Administration Bisacodyl 10 mg 08/22/17 17:05 Dulcolax RECTALLY DAILY PRN Constipation Clopidogrel Bisulfate 75 mg 08/17/17 09:00 08/28/17 09:37 Plavix PO 75 mg DAILY PAOLA Administration Cyanocobalamin 1,000 mcg 08/17/17 09:00 08/24/17 08:59 Vit. B-12 IM 1,000 mcg Abarca PAOLA Administration Dextrose 10 ml 08/24/17 21:50 D50%W IVP PRN PRN Hypoglycemia Docusate Sodium 100 mg 08/27/17 13:57 Colace PO DAILY PRN Enoxaparin Sodium 40 mg 08/17/17 04:00 08/28/17 09:37 Lovenox SQ 40 mg DAILY PAOLA Administration Glucose 37.5 gm 08/24/17 21:50 Glutose 15 PO PRN PRN Hypoglycemia Sodium Chloride 1,000 mls @ 60 mls/hr 08/26/17 12:45 08/28/17 13:50 1/2 Normal Saline IV 60 mls/hr .[id number] PAOLA Administration Ceftriaxone Sodium 1 g/ Sodium 100 mls @ 200 mls/hr 08/26/17 16:15 08/27/17 16:25 Chloride IV Infused Q24H PAOLA Infusion Insulin Aspart 1 - 5 unit 08/24/17 21:50 08/27/17 16:06 Novolog SQ 2 unit SS PRN Administration Hyperglycemia Protocol Levothyroxine Sodium 50 mcg 08/18/17 06:30 08/28/17 06:17 Synthroid PO 50 mcg ACB PAOLA Administration Lidocaine HCl 21 mg 08/25/17 14:30 08/27/17 14:18 Xylocaine-Mpf 1% Vial IJ Not Given Q24H PAOLA Memantine 10 mg 08/16/17 09:00 08/28/17 09:38 Namenda PO 10 mg BID PAOLA Administration Midodrine 5 mg 08/18/17 11:00 08/28/17 06:16 Proamatine PO 5 mg 0700,1100,1500 PAOLA Administration Pom Janumet 50-500 1 tab 08/26/17 09:45 08/26/17 14:55 PO 1 tab DAILY PAOLA Administration Ondansetron HCl 4 mg 08/15/17 19:04 08/23/17 09:42 Zofran IVP 4 mg Q6H PRN Administration Nausea &/or vomiting Polyethylene Glycol 17 gm 08/21/17 09:00 08/28/17 09:38 Miralax PO Not Given DAILY PAOLA Senna/Docusate Sodium 1 tab 08/15/17 19:04 08/26/17 09:59 Senna Plus Tablet PO 1 tab BID PRN Administration Constipation Sodium Chloride 10 - 80 ml 08/15/17 15:23 08/26/17 15:57 Iv Flush IVF 10 ml PRN PRN Administration Flushing Sodium Chloride 500 ml 08/15/17 15:35 08/21/17 02:54 Normal Saline IV 500 ml PRN PRN Administration Sodium Chloride 10 ml 08/15/17 19:04 08/24/17 15:09 Iv Flush IV 10 ml PRN PRN Administration Flushing Sodium Chloride 2 spray 08/18/17 18:44 08/28/17 09:38 Deep [place] Nasal Moisturizing [place] EA NOSTRIL 2 spray QID PAOLA Administration Sodium Phosphate 1 enema 08/22/17 10:00 [place] Enema [place] PRN PRN Discontinued Medications Generic Name Dose Route Start Last Admin Trade Name Freq PRN Reason Stop Dose Admin Acetaminophen 650 mg 08/15/17 19:04 Tylenol Supp [place] Q5H PRN Pain Acetazolamide 500 mg 08/21/17 12:26 08/21/17 14:27 Diamox PO 08/21/17 12:27 500 mg O ONE Administration Amiodarone HCl 100 mg 08/19/17 15:30 08/25/17 08:48 Pacerone PO Not Given DAILY [facility] Amiodarone HCl 150 mg 08/21/17 02:24 08/21/17 02:56 Amiodarone IV 08/21/17 02:25 150 mg O ONE Administration Ceftriaxone Sodium 1 g 08/25/17 14:30 08/26/17 14:56 Rocephin 1 Gm Vial IM Not Given Q24H [facility] Clopidogrel Bisulfate 75 mg 08/16/17 09:00 08/16/17 08:31 Plavix PO 75 mg DAILY [facility] Administration Cyanocobalamin 5,000 mcg 08/16/17 09:00 08/16/17 09:26 Vit. B-12 PO 5,000 mcg DAILY [facility] Administration Cyanocobalamin 0 mcg 08/17/17 09:00 Vit. B-12 PO DAILY [facility] Digoxin 125 mcg 08/17/17 12:00 08/19/17 08:57 Lanoxin PO 125 mcg DAILY [facility] Administration Digoxin 500 mcg 08/21/17 02:24 08/21/17 02:54 Lanoxin IVP 08/21/17 02:25 500 mcg O ONE Administration Diltiazem HCl 10 mg 08/18/17 21:55 08/18/17 22:19 Cardizem 25 Mg Inj IVP 08/18/17 21:56 10 mg O ONE Administration Docusate Sodium 100 mg 08/16/17 09:00 08/27/17 10:26 Colace PO 100 mg DAILY [facility] Administration Furosemide 40 mg 08/18/17 12:16 08/18/17 12:26 Lasix 40 Mg/4 Ml IVP 08/18/17 12:17 40 mg Q6HR ONE Administration Furosemide 40 mg 08/18/17 20:00 08/18/17 20:44 Lasix 40 Mg/4 Ml IVP 08/18/17 20:01 40 mg ONE TIME ONE Administration Furosemide 20 mg 08/19/17 10:19 08/19/17 10:31 Lasix 20 Mg/2 Ml IVP 08/19/17 10:20 20 mg ONCE ONE Administration Furosemide 40 mg 08/19/17 17:00 08/20/17 11:15 Lasix 40 Mg/4 Ml IVP 40 mg Q8HR [facility] Administration Furosemide 40 mg 08/20/17 22:00 08/22/17 07:02 Lasix 40 Mg/4 Ml IVP 40 mg 0600,1400,2200 [facility] Administration Cefepime HCl 1 gm/ Sodium 100 mls @ 200 mls/hr 08/15/17 15:23 08/15/17 16:20 Chloride IV 08/15/17 15:52 Infused O ONE Infusion Sodium Chloride 1,000 mls @ 1,000 mls/hr 08/15/17 15:23 08/15/17 17:07 Normal Saline IV 08/15/17 16:22 Infused .Q1H ONE Infusion Sodium Chloride 1,000 mls @ 100 mls/hr 08/15/17 19:15 08/18/17 11:37 Normal Saline IV Infused .Q10H [facility] Infusion Cefepime HCl 1 gm/ Sodium 100 mls @ 200 mls/hr 08/15/17 21:30 08/18/17 10:03 Chloride IV Infused Q6H [facility] Infusion Sodium Chloride 500 mls @ 500 mls/hr 08/15/17 22:59 08/15/17 23:20 Normal Saline IV 08/15/17 23:58 Not Given .Q1H ONE Cefepime HCl 1 gm/ Sodium 100 mls @ 200 mls/hr 08/18/17 16:00 Chloride IV Q6H [facility] Ceftriaxone Sodium 1 g/ Sodium 100 mls @ 200 mls/hr 08/18/17 14:45 08/24/17 15:42 Chloride IV Infused Q24H [facility] Infusion Diltiazem HCl 125 mg/ Sodium 125 mls @ 5 mls/hr 08/18/17 23:00 08/19/17 13:52 Chloride IV 0 mls/hr .Q24H [facility] Infusion Protocol Amiodarone HCl 450 mg/ Sodium 250 mls @ 33.33 mls/hr 08/19/17 12:00 08/19/17 18:00 Chloride IV 08/19/17 18:00 0.99 mg/min .Q7H31M [facility]A 33.33 mls/hr 1 MG/MIN Infusion Amiodarone HCl 900 mg/ Sodium 500 mls @ 16.66 mls/hr 08/19/17 18:00 Chloride IV .Q24H PA[facility]A 0.5 MG/MIN Amiodarone HCl 150 mg/ Sodium 103 mls @ 618 mls/hr 08/19/17 11:57 08/19/17 12 :52 Chloride IV 08/19/17 12:06 Infused O ONE Infusion Potassium Chloride 10 meq in 100 mls @ 100 mls/hr 08/20/17 05:37 08/20/17 08: 07 Potassium Chloride Premix IV 08/20/17 06:36 Infused O ONE Infusion Lidocaine HCl 10 mg/ Potassium 100 mls @ 50 mls/hr 08/20/17 10:30 08/20/17 19 :55 Chloride 10 meq/ Sodium IV 08/20/17 18:57 Infused Chloride .Q2H [facility] Infusion Sodium Chloride 1,000 mls @ 75 mls/hr 08/24/17 15:45 08/25/17 05:40 1/2 Normal Saline IV 08/25/17 05:04 Infused .[id number] [facility] Infusion Sodium Chloride 1,000 mls @ 250 mls/hr 08/25/17 08:45 08/25/17 09:40 Normal Saline IV 08/25/17 09:44 Not Given .Q4H [facility] Levothyroxine Sodium 50 mcg 08/16/17 06:30 08/17/17 05:58 Synthroid PO 50 mcg ACB [facility]A Administration Lidocaine HCl 2.1 mg 08/25/17 14:30 Xylocaine-Mpf 1% Vial IJ Q24H [facility] Metoprolol Tartrate 25 mg 08/17/17 03:29 08/17/17 03:59 Lopressor PO 25 mg Q6H PRN Administration Midodrine 5 mg 08/15/17 21:00 08/17/17 08:59 Proamatine PO 5 mg TID PAOLA Administration Midodrine 5 mg 08/17/17 09:00 08/18/17 09:28 Proamatine PO 08/18/17 10:00 5 mg TID PAOLA Administration Non-Formulary Medication 5,000 mcg 08/16/17 09:00 Cyanocobalamin (Vitamin B-12) [B-12] SL DAILY [facility]A Non-Formulary Medication 28 mg 08/16/17 09:00 Memantine Hcl [Namenda Xr] PO DAILY [facility] Non-Formulary Medication 1 tab 08/15/17 21:00 Sitagliptin Phos/Metformin Hcl [Janumet 50-500 Mg Tablet] PO BID [facility] Pharmacy Consult 1 each 08/21/17 22:40 Pharmacy Consult - Fall Risk 08/21/17 22:41 ONE TIME ONE Potassium Chloride 40 meq 08/19/17 15:36 K-Dur 20 Meq Tablet PO 08/19/17 15:37 O ONE Potassium Chloride 40 meq 08/20/17 05:37 08/20/17 05:44 K-Dur 20 Meq Tablet PO 08/20/17 05:38 40 meq O ONE Administration Potassium Chloride 20 meq 08/20/17 17:30 08/22/17 12:14 K-Dur 20 Meq Tablet PO 20 meq TIDWM PAOLA Administration - Urinary Catheter Management Urethral Cath placed during this visit: no Results 08/28/17 03:59 08/28/17 03:59 CBC 08/28/17 Range/Units 03:59 WBC 11.8 H (4.5-11.0) T/MM3 RBC 3.37 L (4.00-5.20) M/MM3 Hgb 10.2 L (12-16) GM/DL Hct 32.7 L (36-46) % Plt Count 357 (130-400) T/MM3 Neut # (Auto) 8.6 H (1.8-7.7) T/MM3 Lymph # (Auto) 1.9 (1-4.8) T/MM3 [place] # (Auto) 0.8 (0-0.8) T/MM3 Eos # (Auto) 0.5 (0-0.5) T/MM3 Baso # (Auto) 0.0 (0-0.2) T/MM3 Comprehensive Metabolic Panel 08/28/17 Range/Units 03:59 Sodium 140 D (134-144) MEQ/L Potassium 4.0 (3.6-5) MEQ/L Chloride 104 (98-107) MEQ/L Carbon Dioxide 29 (22-30) MEQ/L BUN 24.0 H (7-17) MG/DL Creatinine 0.7 (0.7-1.2) mg/dL Glucose 107 (65-110) MG/DL Calcium 8.8 (8.4-10.2) MG/DL Intake and Output 08/27/17 08/28/17 08/28/17 22:59 06:59 14:59 Intake Total 420 / 420 60 / 60 111 / 1118 Output Total 460 / 460 250 / 250 Balance -40 / -40 -190 / -190 1117 1118 Intake: IV 400 / 400 1000 / 1000 1/2 Ns 1,000 ml @ 60 mls/hr IV 300 / 300 1000 / 1000 .[id number] [facility] Rx#:[id number] Ceftriaxone 1 g In Ns 100 ml @ 100 / 100 200 mls/hr IV Q24H [facility] Rx#: [id number] Oral 20 / 20 60 / 60 118 / 118 Output: Urine 110 / 110 Urine Amount (Catheter) 350 / 350 250 / 250 Other: Urine Appearance Clear Clear Urine Color Yellow Dark Dede Urine Odor Normal Strong Stool Color Brown Brown Brown Yellow Stool Consistency Soft Liquid Soft Size of Bowel Movement Moderate Small # Bowel Movements 1 1 # Incontinent Bowel Movements 1 Weight 62.2 kg Patient Weight 08/29/17 06:59 Weight 62.2 kg Assessment and Plan - Assessment and Plan (1) Atrial fibrillation with RVR Current visit: Yes Status: Acute (2) Atherosclerotic heart disease of [place] coronary artery without angina pectoris Current visit: Yes Status: Chronic (3) Nonrheumatic aortic valve stenosis Current visit: Yes Status: Chronic (4) Syncope and collapse Current visit: Yes Status: Chronic (5) Hypotension Current visit: Yes Status: Chronic (6) Type 2 diabetes mellitus without complications Current visit: Yes Status: Chronic (7) Diastolic CHF Current visit: Yes Status: Acute - Attestation Attestation Narrative: 08/28/17 14:02 Recommendation After examining the patient I agree with the above assessment. I am involved in the formulation of the patient's plan of care. Hospital Course Summary Disclaimer: The visit summary below is not to be considered part of the above Progress Note.
[2017-08-21] MEDS: ONDANSETRON 4 MG/2 ML INJECTION IVP PRN (18:54)
[2017-08-21] MEDS ORDERED: FALL RISK - PHARMACY CONSULT MC ONE (22:40)
[2017-08-22] MEDS: FUROSEMIDE 40 MG/4 ML INJECTION IVP SCH (07:02)
[2017-08-22] MEDS: LEVOTHYROXINE 50 MCG TABLET PO SCH (07:48)
[2017-08-22] MEDS: DOCUSATE SODIUM 100 MG CAPSULE PO SCH (08:28)
[2017-08-22] MEDS: ACETAMINOPHEN 325 MG TABLET PO PRN (08:28)
[2017-08-22] MEDS: POLYETHYL GLYCOL 3350 17gm PACKET PO SCH (08:29)
[2017-08-22] MEDS: AMIODARONE 200 MG TABLET PO SCH (08:29)
[2017-08-22] MEDS: MEMANTINE 10 MG TABLET PO SCH ×2 (08:29→20:43)
[2017-08-22] MEDS: CLOPIDOGREL 75 MG TABLET PO SCH (08:29)
[2017-08-22] MEDS: MIDODRINE 5 MG TABLET PO SCH ×3 (08:29→15:03)
[2017-08-22] MEDS: ASPIRIN *EC* 81 MG TABLET PO SCH (08:29)
[2017-08-22] MEDS: ENOXAPARIN 40 MG/0.4 ML INJECTION SQ SCH (08:29)
[2017-08-22] MEDS: SALINE 0.65% NASAL SPRAY 44 ML BOTTLE EA NOSTRIL SCH ×4 (08:29→20:42)
--- NOTE | 2017-08-22 08:35 | XRay Report ---
Indication: N/V PROCEDURE: XR abdomen 2V: Encounter: Initial Comparison: February 26, 2017 Findings: No free air on the upright view. Bowel gas pattern is nonobstructive and nonspecific. Gas is seen throughout small and large bowel to the level of the rectum. Large amount of stool in the colon. Degenerative change in the spine. Impression: Nonobstructive bowel gas pattern. .
--- NOTE | 2017-08-22 08:38 | XRay Report ---
INDICATION: F/U pulm edema PROCEDURE: CHEST 2-VIEWS UPRIGHT (PA & LAT) Encounter: Initial COMPARISON: August 21, 2017 FINDINGS: Continued improvement in bilateral edema with a mild amount remaining. There are somewhat nodular groundglass type airspace opacities remaining in both lungs. Small effusions. No pneumothorax. Heart size and mediastinal contours are stable. Impression: Continued improvement in pulmonary edema. .
[2017-08-22] MEDS: ONDANSETRON 4 MG/2 ML INJECTION IVP PRN ×2 (09:23→17:29)
[2017-08-22] MEDS ORDERED: FLEET PHOSPHO - SODA ENEMA 133ml PR PRN (10:00)
[2017-08-22] MEDS: CEFTRIAXONE 1 G in NS 100 ML IV SCH (15:02)
--- NOTE | 2017-08-22 15:33 | Progress Note ---
- Date 08/22/17 Subjective: F/U: Sepsis secondary to UTI, E coli UTI Less nausea today, but oral intake still decreased. Taking Mity Shake with daughter's help. Weak-needing 2 person assist to get up. Breathing better - maintaining on RA. Not opening eyes during my exam-eating with daughter's assistance. Objective Vital signs: Temperature 97.6 F 08/22/17 12:00 Pulse Rate 67 08/22/17 12:00 Respiratory Rate 14 08/22/17 12:00 Blood Pressure 99/55 08/22/17 12:00 Pulse Oximetry 98 08/22/17 12:00 Height/Weight/BMI: Height 1.65 m Weight 59.5 kg Body Mass Index 25.2 - Constitutional Present: well nourished, well developed, somnolent - Routine HEENT Exam Head: Present: normocephalic, atraumatic ENT: Present: mucous membranes moist - Routine Respiratory Exam Present: decreased breath sounds. Absent: rales, respiratory distress, wheezes , crackles - Routine Cardiovascular Exam Present: RRR, murmur - Routine Abdominal Exam Present: soft, normoactive bowel sounds, non distended, non tender - Routine Extremities Exam Present: no edema, pulses intact. Absent: cyanosis, clubbing Comments: SCD in place - Routine Musculoskeletal Exam Musculoskeletal: Present: no clubbing or cyanosis - Routine Skin Exam Present: dry, warm - Routine Neurological Exam Somnolent - Routine Psychiatric Exam Comments: Somnolent Results - Labs CBC & Chem 7: 08/22/17 05:24 08/22/17 05:24 Assessment and Plan Assessment and Plan: Assessment Sepsis secondary to UTI as indicated by tachycardia, fever, altered level of consciousness and hypotension. UTI - Recurrent, frequent -- E coli growing from culture day before admission Chronic urinary retention--Indwelling Ramirez - since 02/2017 - changed 08/15/17. Encephalopathy -secondary to sepsis and UTI Pulmonary edema Bilateral pleural effusions - 08/18/17 Acute hypoxic respiratory insufficiency secondary to pulmonary edema Hypernatremia (not POA) Hypokalemia (not POA) Generalized weakness and debility - Acute due to illness Paroxysmal atrial fibrillation Developed RVR 08/18 S/P Cardioversion on 08/19 Severe aortic stenosis Orthostatic hypotension Diabetes mellitus, type 2 CAD H/O Chronic kidney disease, stage III. Hypothyroidism Dementia Chronic constipation Osteoarthritis Hx DVT Hx CVA- 2011 Plan Continued improvement in CXR and O2 need. Patient still somnolent. Nursing working on increasing bowel motivation. Weight with decrease and creatinine increased to 1.3 -- will stop IV Lasix. Continue Rocephin. Encourage activities and therapy. Check BMP in am secondary to diuretic use. Monitor CBC secondary to resolving sepsis. Case discussed with nursing and CM and patient's daughter. Time spent with patient care 25 minutes. DVT Prophylaxis: SCD's Resuscitation Status: Do Not Resuscitate - Time spent with patient Time with patient PN: 25 minutes - Physician Narrative Physician: Sunny Mesa MD Narrative: Date: 08/22/17 Time: 1530 Hospital Course Summary Disclaimer: The visit summary below is not to be considered part of the above Progress Note. Hospital Course: 08/15/17 Admit to [facility] status under the care of Dr. Martinez. 1L NS initiated in ED. Will continue NS 100cc/hr for hydration. Cefepime 1g IV given in ED. Continue empiric coverage for urinary pathogens with Cefepime IV Q6H. UA culture from 08/14/17 revealing gram negative rods. Monitor for sensitives and new UA culture results. Blood culture obtained and results pending. Monitor closely on telemetry. Continue home medications. Monitor blood pressure closely. Monitor daily weight and urinary output closely for signs of fluid overload. Renal function stable. Upon discharge, patient's care will be returned to Dr Caballero. Patient is a DNR. 08/17/17 Sepsis secondary to UTI as indicated by tachycardia, fever, altered level of consciousness and hypotension. -IVF -Repeat lactate-normalized -Mental status improving UTI -Recurrent, frequent -Indwelling Ramirez- since 02/2017 - changed 08/15/17. -On cefepime -Bl cx NGTD -Urine cx from 08/15 NGTD, the one done on 08/14 growing E. coli sensitive to cefepime Altered level of consciousness. -This is usual for her when she gets an UTI per daughter -She does have underlying dementia -This is improved today Generalized weakness and debility. -Due to UTI -consult PT PAF -Not on OAC -Metoprolol 25mg q6hr prn started by nighttime MD -With her hypotension, she may not tolerate this. -Will try low dose digoxin and monitor History of CVA - 2011. -On aspirin and Plavix Dementia. -On Namenda XR Hypothyroid -continue levothyroxine -Last free T4 1.84 in November 2016 Severe aortic stenosis. -SKYE 0.7cm2 per HC 08/2016 Orthostatic hypotension -Continue midodrine History of DVT to left arm. -S/P Mechanical clot removal Diabetes mellitus, type 2. -Continue Janumet -Last A1C I can find was in november 2016 and was 5.3% Constipation. -On Colace daily H/O Chronic kidney disease, stage III. -Creatinine normal here and I do not see any elevations in recent history CAD -H/O stents 2016 -HC 08/2016 showing LVEF 65%, SKYE 0.7cm2, 70-80% LAD, 30% LCx, 70-75% RCA -CHRIS to RCA 09/2016 -CHRIS to LAD 01/2017 Hypothyroidism. -Continue levothyroxine Osteoarthritis. 08/18/17 Oxygen needs continue to increase. Chest X-ray this morning does revel small bilateral pleural effusions and pulmonary edema. Lasix 40 mg IV x1 given this morning, will give repeat 40mg IV Lasix this evening. IVF stopped. Continue to monitor urinary output via Ramirez cath (chronic- changed 08/15) Trend daily weights. she is up 5 Kg from admission Change cefepime for ceftriaxone for treatment of Ecoli UTI. Continue to monitor Accu-Cheks Recheck CBC in am due to UTI/Resolving sepsis. Will recheck BMP in am secondary to Lasix use. Lovenox subcutaneous daily for DVT prophylaxis 08/19/17 Transferred to CCU overnight secondary to Afib with RVR, diltiazem drip started. HR showing improvement. Will consult with Dr Vanessa for treatment recommendations for afib. Digoxin level slightly subtherapeutic at 0.7 - could be increased. Will continue with Rocephin for urinary coverage. Lasix 20mg IV x1 to help mobilize pulmonary edema. Will recheck CXR in am. Weight trending down. Output increased with Lasix yesterday. Continue with supplemental O2, weaning as able. Encourage oral intake. 08/20/17 Will start KCL bolus at 50cc/hr as potassium with significant decrease due to Lasix. Weight with decreased. CXR without change, but O2 sats improved with less O2 flow (3L). Continue ceftriaxone for urinary coverage. Encouraging that oral drive increasing. Likely transfer to medical floor later today. Will have PT/OT restart work tomorrow. 08/21/17 CXR showing gradual improvement. O2 needs decreasing (down to 2L, and weaning). Creatinine stable. Potassium improved to 3.7. Will decrease IV Lasix to 40mg twice a day - worry for overdiuresis with patients decreased oral drive. Diamox 500mg x1 as CO2 increasing. Encourage oral intake. Encourage activities with therapy. Will continue Rocephin for urinary coverage. 08/22/17 Continued improvement in CXR and O2 need. Patient still somnolent. Nursing working on increasing bowel motivation. Weight with decrease and creatinine increased to 1.3 -- will stop IV Lasix. Continue Rocephin. Encourage activities and therapy.
--- NOTE | 2017-08-22 15:47 | Cardiology Progress Note ---
<Sandra Guevara - Last Filed: 08/25/17 15:49> Subjective Principal diagnosis: AFib RVR Interval history: Margarita is seen in follow up for AFib with RVR. She is seen in her room on Medical , her daughter is at the bedside. She is drowsy, says "bye" when instructed to by her daughter but does not open her eyes. Exam Vital signs: Temperature 97.6 F 08/22/17 12:00 Pulse Rate 67 08/22/17 12:00 Respiratory Rate 14 08/22/17 12:00 Blood Pressure 99/55 08/22/17 12:00 Pulse Oximetry 98 08/22/17 12:00 Inpatient Medications: Generic Name Dose Route Start Last Admin Trade Name Freq PRN Reason Stop Dose Admin Acetaminophen 650 mg 08/15/17 19:04 08/22/17 08:28 Tylenol PO 650 mg Q5H PRN Administration Discomfort Amiodarone HCl 100 mg 08/19/17 15:30 08/22/17 08:29 Pacerone PO 100 mg DAILY PAOLA Administration Aspirin 81 mg 08/16/17 09:00 08/22/17 08:29 Ecotrin PO 81 mg DAILY PAOLA Administration Clopidogrel Bisulfate 75 mg 08/17/17 09:00 08/22/17 08:29 Plavix PO 75 mg DAILY PAOLA Administration Cyanocobalamin 1,000 mcg 08/17/17 09:00 08/17/17 09:00 Vit. B-12 IM 1,000 mcg Abarca PAOLA Administration Docusate Sodium 100 mg 08/16/17 09:00 08/22/17 08:28 Colace PO 100 mg DAILY PAOLA Administration Enoxaparin Sodium 40 mg 08/17/17 04:00 08/22/17 08:29 Lovenox SQ 40 mg DAILY PAOLA Administration Ceftriaxone Sodium 1 g/ Sodium 100 mls @ 200 mls/hr 08/18/17 14:45 08/22/17 15:02 Chloride IV 200 mls/hr Q24H PAOLA Administration Levothyroxine Sodium 50 mcg 08/18/17 06:30 08/22/17 07:48 Synthroid PO 50 mcg ACB PAOLA Administration Memantine 10 mg 08/16/17 09:00 08/22/17 08:29 Namenda PO 10 mg BID PAOLA Administration Midodrine 5 mg 08/18/17 11:00 08/22/17 15:03 Proamatine PO 5 mg 0700,1100,1500 PAOLA Administration Ondansetron HCl 4 mg 08/15/17 19:04 08/22/17 09:23 Zofran IVP 4 mg Q6H PRN Administration Nausea &/or vomiting Polyethylene Glycol 17 gm 08/21/17 09:00 08/22/17 08:29 Miralax PO 17 gm DAILY PAOLA Administration Potassium Chloride 20 meq 08/20/17 17:30 08/22/17 12:14 K-Dur 20 Meq Tablet PO 20 meq TIDWM PAOLA Administration Senna/Docusate Sodium 1 tab 08/15/17 19:04 Senna Plus Tablet PO BID PRN Constipation Sodium Chloride 10 - 80 ml 08/15/17 15:23 08/21/17 02:57 Iv Flush IVF 10 ml PRN PRN Administration Flushing Sodium Chloride 500 ml 08/15/17 15:35 08/21/17 02:54 Normal Saline IV 500 ml PRN PRN Administration Sodium Chloride 10 ml 08/15/17 19:04 Iv Flush IV PRN PRN Flushing Sodium Chloride 2 spray 08/18/17 18:44 08/22/17 12:15 Deep Sea Nasal Moisturizing [place] EA NOSTRIL 2 spray QID PAOLA Administration Discontinued Medications Generic Name Dose Route Start Last Admin Trade Name Freq PRN Reason Stop Dose Admin Acetaminophen 650 mg 08/15/17 19:04 Tylenol Supp [place] Q5H PRN Pain Acetazolamide 500 mg 08/21/17 12:26 08/21/17 14:27 Diamox PO 08/21/17 12:27 500 mg O ONE Administration Amiodarone HCl 150 mg 08/21/17 02:24 08/21/17 02:56 Amiodarone IV 08/21/17 02:25 150 mg O ONE Administration Clopidogrel Bisulfate 75 mg 08/16/17 09:00 08/16/17 08:31 Plavix PO 75 mg DAILY PAOLA Administration Cyanocobalamin 5,000 mcg 08/16/17 09:00 08/16/17 09:26 Vit. B-12 PO 5,000 mcg DAILY PAOLA Administration Cyanocobalamin 0 mcg 08/17/17 09:00 Vit. B-12 PO DAILY PAOLA Digoxin 125 mcg 08/17/17 12:00 08/19/17 08:57 Lanoxin PO 125 mcg DAILY PAOLA Administration Digoxin 500 mcg 08/21/17 02:24 08/21/17 02:54 Lanoxin IVP 08/21/17 02:25 500 mcg O ONE Administration Diltiazem HCl 10 mg 08/18/17 21:55 08/18/17 22:19 Cardizem 25 Mg Inj IVP 08/18/17 21:56 10 mg O ONE Administration Furosemide 40 mg 08/18/17 12:16 08/18/17 12:26 Lasix 40 Mg/4 Ml IVP 08/18/17 12:17 40 mg Q6HR ONE Administration Furosemide 40 mg 08/18/17 20:00 08/18/17 20:44 Lasix 40 Mg/4 Ml IVP 08/18/17 20:01 40 mg ONE TIME ONE Administration Furosemide 20 mg 08/19/17 10:19 08/19/17 10:31 Lasix 20 Mg/2 Ml IVP 08/19/17 10:20 20 mg ONCE ONE Administration Furosemide 40 mg 08/19/17 17:00 08/20/17 11:15 Lasix 40 Mg/4 Ml IVP 40 mg Q8HR PAOLA Administration Furosemide 40 mg 08/20/17 22:00 08/22/17 07:02 Lasix 40 Mg/4 Ml IVP 40 mg 0600,1400,2200 PAOLA Administration Cefepime HCl 1 gm/ Sodium 100 mls @ 200 mls/hr 08/15/17 15:23 08/15/17 16:20 Chloride IV 08/15/17 15:52 Infused O ONE Infusion Sodium Chloride 1,000 mls @ 1,000 mls/hr 08/15/17 15:23 08/15/17 17:07 Normal Saline IV 08/15/17 16:22 Infused .Q1H ONE Infusion Sodium Chloride 1,000 mls @ 100 mls/hr 08/15/17 19:15 08/18/17 11:37 Normal Saline IV Infused .Q10H PA[facility]A Infusion Cefepime HCl 1 gm/ Sodium 100 mls @ 200 mls/hr 08/15/17 21:30 08/18/17 10:03 Chloride IV Infused Q6H PAOLA Infusion Sodium Chloride 500 mls @ 500 mls/hr 08/15/17 22:59 08/15/17 23:20 Normal Saline IV 08/15/17 23:58 Not Given .Q1H ONE Cefepime HCl 1 gm/ Sodium 100 mls @ 200 mls/hr 08/18/17 16:00 Chloride IV Q6H PAOLA Diltiazem HCl 125 mg/ Sodium 125 mls @ 5 mls/hr 08/18/17 23:00 08/19/17 13:52 Chloride IV 0 mls/hr .Q24H PA[facility]A Infusion Protocol Amiodarone HCl 450 mg/ Sodium 250 mls @ 33.33 mls/hr 08/19/17 12:00 08/19/17 18:00 Chloride IV 08/19/17 18:00 0.99 mg/min .Q7H31M PAOLA 33.33 mls/hr 1 MG/MIN Infusion Amiodarone HCl 900 mg/ Sodium 500 mls @ 16.66 mls/hr 08/19/17 18:00 Chloride IV .Q24H PAOLA 0.5 MG/MIN Amiodarone HCl 150 mg/ Sodium 103 mls @ 618 mls/hr 08/19/17 11:57 08/19/17 12 :52 Chloride IV 08/19/17 12:06 Infused O ONE Infusion Potassium Chloride 10 meq in 100 mls @ 100 mls/hr 08/20/17 05:37 08/20/17 08: 07 Potassium Chloride Premix IV 08/20/17 06:36 Infused O ONE Infusion Lidocaine HCl 10 mg/ Potassium 100 mls @ 50 mls/hr 08/20/17 10:30 08/20/17 19 :55 Chloride 10 meq/ Sodium IV 08/20/17 18:57 Infused Chloride .Q2H PA[facility]A Infusion Levothyroxine Sodium 50 mcg 08/16/17 06:30 08/17/17 05:58 Synthroid PO 50 mcg ACB PAOLA Administration Metoprolol Tartrate 25 mg 08/17/17 03:29 08/17/17 03:59 Lopressor PO 25 mg Q6H PRN Administration Midodrine 5 mg 08/15/17 21:00 08/17/17 08:59 Proamatine PO 5 mg TID PAOLA Administration Midodrine 5 mg 08/17/17 09:00 08/18/17 09:28 Proamatine PO 08/18/17 10:00 5 mg TID PAOLA Administration Non-Formulary Medication 5,000 mcg 08/16/17 09:00 Cyanocobalamin (Vitamin B-12) [B-12] SL DAILY [facility] Non-Formulary Medication 28 mg 08/16/17 09:00 Memantine Hcl [Namenda Xr] PO DAILY [facility]A Non-Formulary Medication 1 tab 08/15/17 21:00 Sitagliptin Phos/Metformin Hcl [Janumet 50-500 Mg Tablet] PO BID [facility] Pharmacy Consult 1 each 08/21/17 22:40 Pharmacy Consult - Fall Risk [facility] 08/21/17 22:41 ONE TIME ONE Potassium Chloride 40 meq 08/19/17 15:36 K-Dur 20 Meq Tablet PO 08/19/17 15:37 O ONE Potassium Chloride 40 meq 08/20/17 05:37 08/20/17 05:44 K-Dur 20 Meq Tablet PO 08/20/17 05:38 40 meq O ONE Administration - Constitutional no acute distress, well nourished, cooperative - Routine HEENT Exam Head: Present: normocephalic ENT: Present: mucous membranes moist - Routine Neck Exam Absent: JVD, carotid bruit - Routine Chest/Breast/Axilla Exam Chest wall: Absent: tenderness - Routine Respiratory Exam Present: decreased breath sounds. Absent: dyspnea - Routine Cardiovascular Exam Present: RRR, no murmur - Routine Abdominal Exam Present: soft, non tender - Routine Extremities Exam Present: no edema - Routine Skin Exam Present: intact, dry, warm - Routine Neurological Exam Present: alert. Absent: oriented X3 - Routine Psychiatric Exam Present: normal affect - Urinary Catheter Management Urethral Cath placed during this visit: yes, but has since been removed by the nurse Insertion date: 08/21/17 Insertion time: 12:30 Removal date: 08/21/17 Removal time: 12:00 Results 08/25/17 04:38 08/25/17 04:38 CBC 08/22/17 Range/Units 05:24 WBC 11.9 H (4.5-11.0) T/MM3 RBC 3.58 L (4.00-5.20) M/MM3 Hgb 10.9 L (12-16) GM/DL Hct 35.1 L (36-46) % Plt Count 348 (130-400) T/MM3 Neut # (Auto) 9.0 H (1.8-7.7) T/MM3 Lymph # (Auto) 1.3 (1-4.8) T/MM3 [place] # (Auto) 0.9 H (0-0.8) T/MM3 Eos # (Auto) 0.6 H (0-0.5) T/MM3 Baso # (Auto) 0.1 (0-0.2) T/MM3 Comprehensive Metabolic Panel 08/22/17 Range/Units 05:24 Sodium 145 H (134-144) MEQ/L Potassium 4.2 (3.6-5) MEQ/L Chloride 100 (98-107) MEQ/L Carbon Dioxide 34 H (22-30) MEQ/L BUN 39.0 H (7-17) MG/DL Creatinine 1.3 H D (0.7-1.2) mg/dL Glucose 176 H (65-110) MG/DL Calcium 9.3 (8.4-10.2) MG/DL Intake and Output 08/22/17 08/22/17 08/22/17 06:59 14:59 22:59 Output Total 450 / 450 350 / 350 Balance -450 / -450 -350 / -350 Output: Urine Amount (Catheter) 450 / 450 350 / 350 Other: Urine Appearance Clear Urine Color Light [place] Dark Yellow Stool Color Brown Brown Stool Consistency Formed Dry and Hard Emesis Description Undigested Food Digested Food Size of Bowel Movement Large Small # Unmeasured Emesis Episodes 1 Weight 131 lb 2.801 oz Patient Weight 08/23/17 06:59 Weight 131 lb 2.801 oz - Imaging and Cardiology Imaging & Cardiology Narrative: Date of Exam: 08/22/17 Ordering Provider: Sunny Mesa MD Type of Exam(s): XR chest 2V Reason for Exam(s): F/U pulm edema INDICATION: F/U pulm edema PROCEDURE: CHEST 2-VIEWS UPRIGHT (PA & LAT) Encounter: Initial COMPARISON: August 21, 2017 FINDINGS: Continued improvement in bilateral edema with a mild amount remaining. There are somewhat nodular groundglass type airspace opacities remaining in both lungs. Small effusions. No pneumothorax. Heart size and mediastinal contours are stable. Impression: Continued improvement in pulmonary edema. 08/22/17 15:44 08/22/17 15:44 Date of Exam: 08/22/17 Ordering Provider: Sunny Mesa MD Type of Exam(s): XR abdomen 2V Reason for Exam(s): N/V Indication: N/V PROCEDURE: XR abdomen 2V: Encounter: Initial Comparison: February 26, 2017 Findings: No free air on the upright view. Bowel gas pattern is nonobstructive and nonspecific. Gas is seen throughout small and large bowel to the level of the rectum. Large amount of stool in the colon. Degenerative change in the spine. Impression: Nonobstructive bowel gas pattern. Assessment and Plan - Assessment and Plan (1) Atrial fibrillation with RVR Current visit: Yes Status: Acute (2) Atherosclerotic heart disease of [place] coronary artery without angina pectoris Current visit: Yes Status: Chronic (3) Nonrheumatic aortic valve stenosis Current visit: Yes Status: Chronic (4) Syncope and collapse Current visit: Yes Status: Chronic (5) Hypotension Current visit: Yes Status: Chronic (6) Type 2 diabetes mellitus without complications Current visit: Yes Status: Chronic (7) Diastolic CHF Current visit: Yes Status: Acute - Assessment and Plan 08/19/17 A Fib with RVR: History of PAF, asymptomatic - Takes Amiodarone 100mg daily, not given this admission - Amiodarone bolus and drip - Npo for possible DCCV - Converted to SR - Resume home Amiodarone 100mg PO daily and stop IV - EKG now - Stop Digoxin. - Check TSh and Mag DCHF: Diurese with Lasix 40mg IV q8h - CXR: Diffuse airspace opacities throughout both lungs. Probable small bilateral pleural effusions. Close interval follow-up is recommended. - K+ 3.3, replace CAD: Stable. continue current therapy, routine monitoring. - Continue Aspirin and Plavix Hypotension: Continue Midodrine Thank you for allowing us to participate in the care of this patient. 08/20/17 AFib:Continue home dose Amiodarone 100mg daily - Not a candidate for fpc anticoagulation due to age and fall risk DCHF: Diuresing well. - CXR: No significant change in diffuse bilateral airspace disease which could represent edema, pneumonia, massive aspiration or pulmonary hemorrhage. - Continue Lasix 40mg IV q8h - K+ 2.9, Replace K+ 20meq po with meals TID - TSH, Mag WNL - Monitor renal and electrolytes 08/21/17 Went back into AFib overnight. - Given 150mg IV Amiodarone bolus and Digoxin 500mcg - Converted back this afternoon to SR - Continue Amiodarone at 100mg daily CXR: Overall slight improvement in appearance of the chest may be due to resolving edema. - Continue diuresis - Monitor renal and electrolytes 08/22/17 BUN/SCr 39/ 1.3, NA 145 today, K+ 4.2 - Diuretic stopped by attending - Stop K+ replacement CXR: Impression: Continued improvement in pulmonary edema. Hospital Course Summary Disclaimer: The visit summary below is not to be considered part of the above Progress Note. Hospital Course: 08/15/17 [facility] Dr. Martinez. 1L NS initiated in ED. Will continue NS 100cc/hr for hydration. Cefepime 1g IV given in ED. Continue empiric coverage for urinary pathogens with Cefepime IV Q6H. UA culture from 08/14/17 revealing gram negative rods. Monitor for sensitives and new UA culture results. Blood culture obtained and results pending. Monitor closely on telemetry. Continue home medications. Monitor blood pressure closely. Monitor daily weight and urinary output closely for signs of fluid overload. Renal function stable. Upon discharge, patient's care will be returned to Dr Caballero. Patient is a DNR. 08/17/17 Sepsis secondary to UTI as indicated by tachycardia, fever, altered level of consciousness and hypotension. -IVF -Repeat lactate-normalized -Mental status improving UTI -Recurrent, frequent -Indwelling Ramirez- since 02/2017 - changed 08/15/17. -On cefepime -Bl cx NGTD -Urine cx from 08/15 NGTD, the one done on 08/14 growing E. coli sensitive to cefepime Altered level of consciousness. -This is usual for her when she gets an UTI per daughter -She does have underlying dementia -This is improved today Generalized weakness and debility. -Due to UTI -consult PT PAF -Not on OAC -Metoprolol 25mg q6hr prn started by nighttime MD -With her hypotension, she may not tolerate this. -Will try low dose digoxin and monitor History of CVA - 2011. -On aspirin and Plavix Dementia. -On Namenda XR Hypothyroid -continue levothyroxine -Last free T4 1.84 in November 2016 Severe aortic stenosis. -SKYE 0.7cm2 per HC 08/2016 Orthostatic hypotension -Continue midodrine History of DVT to left arm. -S/P Mechanical clot removal Diabetes mellitus, type 2. -Continue Janumet -Last A1C I can find was in november 2016 and was 5.3% Constipation. -On Colace daily H/O Chronic kidney disease, stage III. -Creatinine normal here and I do not see any elevations in recent history CAD -H/O stents 2016 -HC 08/2016 showing LVEF 65%, SKYE 0.7cm2, 70-80% LAD, 30% LCx, 70-75% RCA -CHRIS to RCA 09/2016 -CHRIS to LAD 01/2017 Hypothyroidism. -Continue levothyroxine Osteoarthritis. 08/18/17 Oxygen needs continue to increase. Chest X-ray this morning does revel small bilateral pleural effusions and pulmonary edema. Lasix 40 mg IV x1 given this morning, will give repeat 40mg IV Lasix this evening. IVF stopped. Continue to monitor urinary output via Ramirez cath (chronic- changed 08/15) Trend daily weights. she is up 5 Kg from admission Change cefepime for ceftriaxone for treatment of Ecoli UTI. Continue to monitor Accu-Cheks Recheck CBC in am due to UTI/Resolving sepsis. Will recheck BMP in am secondary to Lasix use. Lovenox subcutaneous daily for DVT prophylaxis 08/19/17 Transferred to CCU overnight secondary to Afib with RVR, diltiazem drip started. HR showing improvement. Will consult with Dr Vanessa for treatment recommendations for afib. Digoxin level slightly subtherapeutic at 0.7 - could be increased. Will continue with Rocephin for urinary coverage. Lasix 20mg IV x1 to help mobilize pulmonary edema. Will recheck CXR in am. Weight trending down. Output increased with Lasix yesterday. Continue with supplemental O2, weaning as able. Encourage oral intake. <Lawrence Vanessa - Last Filed: 08/29/17 13:26> Exam Vital signs: Temperature 97 F 08/29/17 08:00 Pulse Rate 93 08/29/17 08:00 Respiratory Rate 18 08/29/17 08:00 Blood Pressure 102/65 08/29/17 08:00 Pulse Oximetry 95 08/29/17 08:00 Inpatient Medications: Generic Name Dose Route Start Last Admin Trade Name Freq PRN Reason Stop Dose Admin Acetaminophen 650 mg 08/15/17 19:04 08/22/17 08:28 Tylenol PO 650 mg Q5H PRN Administration Discomfort Amiodarone HCl 200 mg 08/26/17 09:00 08/29/17 08:52 Pacerone PO 200 mg DAILY PAOLA Administration Aspirin 81 mg 08/16/17 09:00 08/29/17 08:52 Ecotrin PO 81 mg DAILY PAOLA Administration Bisacodyl 10 mg 08/22/17 17:05 Dulcolax RECTALLY DAILY PRN Constipation Clopidogrel Bisulfate 75 mg 08/17/17 09:00 08/29/17 08:51 Plavix PO 75 mg DAILY PAOLA Administration Cyanocobalamin 1,000 mcg 08/17/17 09:00 08/24/17 08:59 Vit. B-12 IM 1,000 mcg Abarca PAOLA Administration Dextrose 10 ml 08/24/17 21:50 D50%W IVP PRN PRN Hypoglycemia Docusate Sodium 100 mg 08/27/17 13:57 Colace PO DAILY PRN Enoxaparin Sodium 40 mg 08/17/17 04:00 08/29/17 08:51 Lovenox SQ 40 mg DAILY PAOLA Administration Glucose 37.5 gm 08/24/17 21:50 Glutose 15 PO PRN PRN Hypoglycemia Sodium Chloride 1,000 mls @ 60 mls/hr 08/26/17 12:45 08/29/17 05:46 1/2 Normal Saline IV 60 mls/hr .[id number] PAOLA Administration Insulin Aspart 1 - 5 unit 08/24/17 21:50 08/27/17 16:06 Novolog SQ 2 unit SS PRN Administration Hyperglycemia Protocol Levothyroxine Sodium 50 mcg 08/18/17 06:30 08/29/17 06:13 Synthroid PO 50 mcg ACB PAOLA Administration Lidocaine HCl 21 mg 08/25/17 14:30 08/28/17 17:12 Xylocaine-Mpf 1% Vial IJ Not Given Q24H PAOLA Memantine 10 mg 08/16/17 09:00 08/29/17 08:52 Namenda PO 10 mg BID PAOLA Administration Midodrine 5 mg 08/18/17 11:00 08/29/17 13:09 Proamatine PO 5 mg 0700,1100,1500 PAOLA Administration Pom Janumet 50-500 1 tab 08/26/17 09:45 08/26/17 14:55 PO 1 tab DAILY PAOLA Administration Ondansetron HCl 4 mg 08/15/17 19:04 08/23/17 09:42 Zofran IVP 4 mg Q6H PRN Administration Nausea &/or vomiting Polyethylene Glycol 17 gm 08/21/17 09:00 08/29/17 08:52 Miralax PO Not Given DAILY PA[facility]A Senna/Docusate Sodium 1 tab 08/15/17 19:04 08/26/17 09:59 Senna Plus Tablet PO 1 tab BID PRN Administration Constipation Sodium Chloride 10 - 80 ml 08/15/17 15:23 08/26/17 15:57 Iv Flush IVF 10 ml PRN PRN Administration Flushing Sodium Chloride 500 ml 08/15/17 15:35 08/21/17 02:54 Normal Saline IV 500 ml PRN PRN Administration Sodium Chloride 10 ml 08/15/17 19:04 08/24/17 15:09 Iv Flush IV 10 ml PRN PRN Administration Flushing Sodium Chloride 2 spray 08/18/17 18:44 08/29/17 13:09 Deep Sea Nasal Moisturizing [place] EA NOSTRIL Not Given QID PAOLA Sodium Phosphate 1 enema 08/22/17 10:00 Fleet Enema [place] PRN PRN Discontinued Medications Generic Name Dose Route Start Last Admin Trade Name Freq PRN Reason Stop Dose Admin Acetaminophen 650 mg 08/15/17 19:04 Tylenol Supp [place] Q5H PRN Pain Acetazolamide 500 mg 08/21/17 12:26 08/21/17 14:27 Diamox PO 08/21/17 12:27 500 mg O ONE Administration Amiodarone HCl 100 mg 08/19/17 15:30 08/25/17 08:48 Pacerone PO Not Given DAILY PAOLA Amiodarone HCl 150 mg 08/21/17 02:24 08/21/17 02:56 Amiodarone IV 08/21/17 02:25 150 mg O ONE Administration Ceftriaxone Sodium 1 g 08/25/17 14:30 08/26/17 14:56 Rocephin 1 Gm Vial IM Not Given Q24H PAOLA Clopidogrel Bisulfate 75 mg 08/16/17 09:00 08/16/17 08:31 Plavix PO 75 mg DAILY [facility]A Administration Cyanocobalamin 5,000 mcg 08/16/17 09:00 08/16/17 09:26 Vit. B-12 PO 5,000 mcg DAILY PA[facility]A Administration Cyanocobalamin 0 mcg 08/17/17 09:00 Vit. B-12 PO DAILY PA[facility]A Digoxin 125 mcg 08/17/17 12:00 08/19/17 08:57 Lanoxin PO 125 mcg DAILY [facility] Administration Digoxin 500 mcg 08/21/17 02:24 08/21/17 02:54 Lanoxin IVP 08/21/17 02:25 500 mcg O ONE Administration Diltiazem HCl 10 mg 08/18/17 21:55 08/18/17 22:19 Cardizem 25 Mg Inj IVP 08/18/17 21:56 10 mg O ONE Administration Docusate Sodium 100 mg 08/16/17 09:00 08/27/17 10:26 Colace PO 100 mg DAILY [facility]A Administration Furosemide 40 mg 08/18/17 12:16 08/18/17 12:26 Lasix 40 Mg/4 Ml IVP 08/18/17 12:17 40 mg Q6HR ONE Administration Furosemide 40 mg 08/18/17 20:00 08/18/17 20:44 Lasix 40 Mg/4 Ml IVP 08/18/17 20:01 40 mg ONE TIME ONE Administration Furosemide 20 mg 08/19/17 10:19 08/19/17 10:31 Lasix 20 Mg/2 Ml IVP 08/19/17 10:20 20 mg ONCE ONE Administration Furosemide 40 mg 08/19/17 17:00 08/20/17 11:15 Lasix 40 Mg/4 Ml IVP 40 mg Q8HR PAOLA Administration Furosemide 40 mg 08/20/17 22:00 08/22/17 07:02 Lasix 40 Mg/4 Ml IVP 40 mg 0600,1400,2200 PA[facility]A Administration Cefepime HCl 1 gm/ Sodium 100 mls @ 200 mls/hr 08/15/17 15:23 08/15/17 16:20 Chloride IV 08/15/17 15:52 Infused O ONE Infusion Sodium Chloride 1,000 mls @ 1,000 mls/hr 08/15/17 15:23 08/15/17 17:07 Normal Saline IV 08/15/17 16:22 Infused .Q1H ONE Infusion Sodium Chloride 1,000 mls @ 100 mls/hr 08/15/17 19:15 08/18/17 11:37 Normal Saline IV Infused .Q10H PA[facility]A Infusion Cefepime HCl 1 gm/ Sodium 100 mls @ 200 mls/hr 08/15/17 21:30 08/18/17 10:03 Chloride IV Infused Q6H [facility]A Infusion Sodium Chloride 500 mls @ 500 mls/hr 08/15/17 22:59 08/15/17 23:20 Normal Saline IV 08/15/17 23:58 Not Given .Q1H ONE Cefepime HCl 1 gm/ Sodium 100 mls @ 200 mls/hr 08/18/17 16:00 Chloride IV Q6H PAOLA Ceftriaxone Sodium 1 g/ Sodium 100 mls @ 200 mls/hr 08/18/17 14:45 08/24/17 15:42 Chloride IV Infused Q24H [facility] Infusion Diltiazem HCl 125 mg/ Sodium 125 mls @ 5 mls/hr 08/18/17 23:00 08/19/17 13:52 Chloride IV 0 mls/hr .Q24H [facility] Infusion Protocol Amiodarone HCl 450 mg/ Sodium 250 mls @ 33.33 mls/hr 08/19/17 12:00 08/19/17 18:00 Chloride IV 08/19/17 18:00 0.99 mg/min .Q7H31M PAOLA 33.33 mls/hr 1 MG/MIN Infusion Amiodarone HCl 900 mg/ Sodium 500 mls @ 16.66 mls/hr 08/19/17 18:00 Chloride IV .Q24H PAOLA 0.5 MG/MIN Amiodarone HCl 150 mg/ Sodium 103 mls @ 618 mls/hr 08/19/17 11:57 08/19/17 12 :52 Chloride IV 08/19/17 12:06 Infused O ONE Infusion Potassium Chloride 10 meq in 100 mls @ 100 mls/hr 08/20/17 05:37 08/20/17 08: 07 Potassium Chloride Premix IV 08/20/17 06:36 Infused O ONE Infusion Lidocaine HCl 10 mg/ Potassium 100 mls @ 50 mls/hr 08/20/17 10:30 08/20/17 19 :55 Chloride 10 meq/ Sodium IV 08/20/17 18:57 Infused Chloride .Q2H [facility]A Infusion Sodium Chloride 1,000 mls @ 75 mls/hr 08/24/17 15:45 08/25/17 05:40 1/2 Normal Saline IV 08/25/17 05:04 Infused .[id number] [facility]A Infusion Sodium Chloride 1,000 mls @ 250 mls/hr 08/25/17 08:45 08/25/17 09:40 Normal Saline IV 08/25/17 09:44 Not Given .Q4H [facility]A Ceftriaxone Sodium 1 g/ Sodium 100 mls @ 200 mls/hr 08/26/17 16:15 08/28/17 17:12 Chloride IV Not Given Q24H [facility] Levothyroxine Sodium 50 mcg 08/16/17 06:30 08/17/17 05:58 Synthroid PO 50 mcg ACB [facility] Administration Lidocaine HCl 2.1 mg 08/25/17 14:30 Xylocaine-Mpf 1% Vial IJ Q24H PA[facility]A Metoprolol Tartrate 25 mg 08/17/17 03:29 08/17/17 03:59 Lopressor PO 25 mg Q6H PRN Administration Midodrine 5 mg 08/15/17 21:00 08/17/17 08:59 Proamatine PO 5 mg TID [facility]A Administration Midodrine 5 mg 08/17/17 09:00 08/18/17 09:28 Proamatine PO 08/18/17 10:00 5 mg TID PA[facility]A Administration Non-Formulary Medication 5,000 mcg 08/16/17 09:00 Cyanocobalamin (Vitamin B-12) [B-12] SL DAILY [facility] Non-Formulary Medication 28 mg 08/16/17 09:00 Memantine Hcl [Namenda Xr] PO DAILY [facility] Non-Formulary Medication 1 tab 08/15/17 21:00 Sitagliptin Phos/Metformin Hcl [Janumet 50-500 Mg Tablet] PO BID [facility] Pharmacy Consult 1 each 08/21/17 22:40 Pharmacy Consult - Fall Risk [facility] 08/21/17 22:41 ONE TIME ONE Potassium Chloride 40 meq 08/19/17 15:36 K-Dur 20 Meq Tablet PO 08/19/17 15:37 O ONE Potassium Chloride 40 meq 08/20/17 05:37 08/20/17 05:44 K-Dur 20 Meq Tablet PO 08/20/17 05:38 40 meq O ONE Administration Potassium Chloride 20 meq 08/20/17 17:30 05/04/18 12:14 K-Dur 20 Meq Tablet PO 20 meq TIDWM PAOLA Administration - Urinary Catheter Management Urethral Cath placed during this visit: no Results 08/29/17 04:16 08/29/17 04:16 CBC 08/29/17 Range/Units 04:16 WBC 9.0 (4.5-11.0) T/MM3 RBC 3.51 L (4.00-5.20) M/MM3 Hgb 10.8 L (12-16) GM/DL Hct 33.9 L (36-46) % Plt Count 340 (130-400) T/MM3 Neut # (Auto) 5.7 (1.8-7.7) T/MM3 Lymph # (Auto) 1.9 (1-4.8) T/MM3 [place] # (Auto) 0.8 (0-0.8) T/MM3 Eos # (Auto) 0.5 (0-0.5) T/MM3 Baso # (Auto) 0.1 (0-0.2) T/MM3 Comprehensive Metabolic Panel 08/29/17 Range/Units 04:16 Sodium 143 (134-144) MEQ/L Potassium 4.2 (3.6-5) MEQ/L Chloride 105 (98-107) MEQ/L Carbon Dioxide 28 (22-30) MEQ/L BUN 13.0 (7-17) MG/DL Creatinine 0.7 (0.7-1.2) mg/dL Glucose 113 H (65-110) MG/DL Calcium 9.0 (8.4-10.2) MG/DL Albumin 3.0 L (3.5-5.0) g/dL Intake and Output 08/28/17 08/29/17 08/29/17 22:59 06:59 14:59 Intake Total 956 / 956 Output Total 875 / 875 900 / 900 Balance -875 / -875 56 / 56 Intake: IV 956 / 956 1/2 Ns 1,000 ml @ 60 mls/hr IV 956 / 956 .[id number] [facility]OLA Rx#:[id number] Output: Urine Amount (Catheter) 875 / 875 900 / 900 Other: Urine Appearance Clear Clear Urine Color Pale Yellow Yellow Urine Odor Normal Stool Color Brown Brown Yellow Stool Consistency Soft Loose Size of Bowel Movement Small Moderate # Incontinent Bowel Movements 1 Weight 61.8 kg Patient Weight 08/30/17 06:59 Weight 61.8 kg Assessment and Plan - Assessment and Plan (1) Atrial fibrillation with RVR Current visit: Yes Status: Acute (2) Atherosclerotic heart disease of [place] coronary artery without angina pectoris Current visit: Yes Status: Chronic (3) Nonrheumatic aortic valve stenosis Current visit: Yes Status: Chronic (4) Syncope and collapse Current visit: Yes Status: Chronic (5) Hypotension Current visit: Yes Status: Chronic (6) Type 2 diabetes mellitus without complications Current visit: Yes Status: Chronic (7) Diastolic CHF Current visit: Yes Status: Acute - Attestation Attestation Narrative: 08/29/17 13:25 Recommendation After examining the patient I agree with the above assessment. I am involved in the formulation of the patient's plan of care. Hospital Course Summary Disclaimer: The visit summary below is not to be considered part of the above Progress Note.
[2017-08-22] MEDS ORDERED: BISACODYL 10 MG SUPPOSITORY RECTALLY PRN (17:05)
[2017-08-23] MEDS: LEVOTHYROXINE 50 MCG TABLET PO SCH (06:25)
[2017-08-23] MEDS: MIDODRINE 5 MG TABLET PO SCH ×3 (06:25→16:55)
[2017-08-23] MEDS: ONDANSETRON 4 MG/2 ML INJECTION IVP PRN (09:42)
[2017-08-23] MEDS: SALINE FLUSH 10ml SYRINGE IVF PRN ×2 (09:42→16:50)
[2017-08-23] MEDS: AMIODARONE 200 MG TABLET PO SCH (09:44)
[2017-08-23] MEDS: SENNA + DOCUSATE TABLET PO PRN (09:47)
[2017-08-23] MEDS: ASPIRIN *EC* 81 MG TABLET PO SCH (09:47)
[2017-08-23] MEDS: MEMANTINE 10 MG TABLET PO SCH ×2 (09:47→21:03)
[2017-08-23] MEDS: CLOPIDOGREL 75 MG TABLET PO SCH (09:47)
[2017-08-23] MEDS: DOCUSATE SODIUM 100 MG CAPSULE PO SCH (09:48)
[2017-08-23] MEDS: ENOXAPARIN 40 MG/0.4 ML INJECTION SQ SCH (09:48)
[2017-08-23] MEDS: SALINE 0.65% NASAL SPRAY 44 ML BOTTLE EA NOSTRIL SCH ×4 (09:50→21:03)
[2017-08-23] MEDS: POLYETHYL GLYCOL 3350 17gm PACKET PO SCH (09:51)
--- NOTE | 2017-08-23 11:57 | Progress Note ---
- Date 08/23/17 Subjective: F/U: Sepsis secondary to UTI, E coli UTI Patient continues on ceftriaxone for UTI. She has been taking very little in by mouth. Nurses were able to get her to take her medications this morning with a few swallows of mighty shake. She has continued to be minimally responsive. Will occasionally wake up and give one-word answers. When I asked her how she was doing today she answers "fine." She does not answer further questions and keeps her eyes closed. Per nurse's notes, she had an enema and manual removal of large amount stool during the day yesterday. Objective Vital signs: Temperature 96.8 F 08/23/17 04:25 Pulse Rate 70 08/23/17 04:25 Respiratory Rate 16 08/23/17 04:25 Blood Pressure 97/50 08/23/17 04:25 Pulse Oximetry 92 08/23/17 04:25 Height/Weight/BMI: Height 1.65 m Weight 59.5 kg Body Mass Index 25.2 - Constitutional Present: no acute distress, well nourished, well developed - Routine HEENT Exam Head: Present: normocephalic, atraumatic - Routine Respiratory Exam Present: CTA bilaterally. Absent: wheezes - Routine Cardiovascular Exam Present: RRR, murmur - Routine Abdominal Exam Present: soft, non distended, non tender - Routine Extremities Exam Present: no edema, normal capillary refill - Routine Skin Exam Present: dry, warm - Routine Neurological Exam Absent: alert, oriented X3 - Routine Lymphatic Exam Lymphatic: Absent: adenopathy - Routine Psychiatric Exam Present: unable to assess Results - Labs CBC & Chem 7: 08/23/17 04:19 08/23/17 04:19 Assessment and Plan (1) Sepsis Current visit: Yes Status: Acute (2) Recurrent UTI Problem details: failed outpt therapy; recurrent Current visit: No Status: Resolved Assessment and Plan: Assessment Sepsis secondary to UTI as indicated by tachycardia, fever, altered level of consciousness and hypotension. UTI - Recurrent, frequent -- E coli growing from culture 08/14/17 Chronic urinary retention--Indwelling Ramirez - since 02/2017 - changed 08/15/17. Encephalopathy -secondary to sepsis and UTI Pulmonary edema Bilateral pleural effusions - 08/18/17 Acute hypoxic respiratory insufficiency secondary to pulmonary edema Hypernatremia (not POA) Hypokalemia (not POA) Generalized weakness and debility - Acute due to illness Paroxysmal atrial fibrillation Developed RVR 08/18 S/P Cardioversion on 08/19 Severe aortic stenosis Orthostatic hypotension Diabetes mellitus, type 2 CAD H/O Chronic kidney disease, stage III. Hypothyroidism Dementia Chronic constipation Osteoarthritis Hx DVT Hx CVA- 2011 Obstipation Plan Patient still somnolent. Leukocytosis increasing 9.8-->11.9-->13.1 despite continuation of ceftriaxone for UTI (+ sensitivity for ceftriaxone on C&S). Check CXR. Remains in NSR at this time. Continues amiodarone . Cardiology following. Patient with minimal intake. Is on fluid restriction d/t recent fluid overload , but pt isn't taking much po. May consider IVF's if she isn't taking more p.o. Encourage activities and therapy. Check BMP in am secondary to diuretic use. Monitor CBC secondary to leukocytosis. DVT Prophylaxis: SCD's Resuscitation Status: Do Not Resuscitate - Physician Narrative Physician: Jolene Box MD Narrative: Date: 08/23/17 Time: 1509 I have independently evaluated and examined this patient. I reviewed the chart, the patient's history, and the ROTARY DUMP OPERATOR/PA's documented findings as above. We discussed and formulated the assessment and plan as above with additions as below: Mrs. La was sleeping soundly at the time of my assessment and did not awaken to exam; nursing reports that she has been drowsy most of the day and has had little oral intake but has had some urine output. Patient has been able to take medications orally. Emesis was described yesterday in addition to several stools after manual disimpaction. Respirations nonlabored, good airflow, anterior breath sounds clear Abdomen benign Chest x-ray being obtained after emesis yesterday due to slight elevation in WBC today. Telemetry strips reviewed by myself-sinus rhythm Continue current care; given recent volume overload do not believe there is an indication to start IV fluids at this time. Hospital Course Summary Disclaimer: The visit summary below is not to be considered part of the above Progress Note. Hospital Course: 08/15/17 [facility] under the care of Dr. Martinez. 1L NS initiated in ED. Will continue NS 100cc/hr for hydration. Cefepime 1g IV given in ED. Continue empiric coverage for urinary pathogens with Cefepime IV Q6H. UA culture from 08/14/17 revealing gram negative rods. Monitor for sensitives and new UA culture results. Blood culture obtained and results pending. Monitor closely on telemetry. Continue home medications. Monitor blood pressure closely. Monitor daily weight and urinary output closely for signs of fluid overload. Renal function stable. Upon discharge, patient's care will be returned to Dr Caballero. Patient is a DNR. 08/17/17 Sepsis secondary to UTI as indicated by tachycardia, fever, altered level of consciousness and hypotension. -IVF -Repeat lactate-normalized -Mental status improving UTI -Recurrent, frequent -Indwelling Ramirez- since 02/2017 - changed 08/15/17. -On cefepime -Bl cx NGTD -Urine cx from 08/15 NGTD, the one done on 08/14 growing E. coli sensitive to cefepime Altered level of consciousness. -This is usual for her when she gets an UTI per daughter -She does have underlying dementia -This is improved today Generalized weakness and debility. -Due to UTI -consult PT PAF -Not on OAC -Metoprolol 25mg q6hr prn started by nighttime MD -With her hypotension, she may not tolerate this. -Will try low dose digoxin and monitor History of CVA - 2011. -On aspirin and Plavix Dementia. -On Namenda XR Hypothyroid -continue levothyroxine -Last free T4 1.84 in November 2016 Severe aortic stenosis. -SKYE 0.7cm2 per 08/2016 Orthostatic hypotension -Continue midodrine History of DVT to left arm. -S/P Mechanical clot removal Diabetes mellitus, type 2. -Continue Janumet -Last A1C I can find was in november 2016 and was 5.3% Constipation. -On Colace daily H/O Chronic kidney disease, stage III. -Creatinine normal here and I do not see any elevations in recent history CAD -H/O stents 2016 -HC 08/2016 showing LVEF 65%, SKYE 0.7cm2, 70-80% LAD, 30% LCx, 70-75% RCA -CHRIS to RCA 09/2016 -CHRIS to LAD 01/2017 Hypothyroidism. -Continue levothyroxine Osteoarthritis. 08/18/17 Oxygen needs continue to increase. Chest X-ray this morning does revel small bilateral pleural effusions and pulmonary edema. Lasix 40 mg IV x1 given this morning, will give repeat 40mg IV Lasix this evening. IVF stopped. Continue to monitor urinary output via Ramirez cath (chronic- changed 08/15) Trend daily weights. she is up 5 Kg from admission Change cefepime for ceftriaxone for treatment of Ecoli UTI. Continue to monitor Accu-Cheks Recheck CBC in am due to UTI/Resolving sepsis. Will recheck BMP in am secondary to Lasix use. Lovenox subcutaneous daily for DVT prophylaxis 08/19/17 Transferred to CCU overnight secondary to Afib with RVR, diltiazem drip started. HR showing improvement. Will consult with Dr Vanessa for treatment recommendations for afib. Digoxin level slightly subtherapeutic at 0.7 - could be increased. Will continue with Rocephin for urinary coverage. Lasix 20mg IV x1 to help mobilize pulmonary edema. Will recheck CXR in am. Weight trending down. Output increased with Lasix yesterday. Continue with supplemental O2, weaning as able. Encourage oral intake. 08/20/17 Will start KCL bolus at 50cc/hr as potassium with significant decrease due to Lasix. Weight with decreased. CXR without change, but O2 sats improved with less O2 flow (3L). Continue ceftriaxone for urinary coverage. Encouraging that oral drive increasing. Likely transfer to medical floor later today. Will have PT/OT restart work tomorrow. 08/21/17 CXR showing gradual improvement. O2 needs decreasing (down to 2L, and weaning). Creatinine stable. Potassium improved to 3.7. Will decrease IV Lasix to 40mg twice a day - worry for overdiuresis with patients decreased oral drive. Diamox 500mg x1 as CO2 increasing. Encourage oral intake. Encourage activities with therapy. Will continue Rocephin for urinary coverage. 08/22/17 Continued improvement in CXR and O2 need. Patient still somnolent. Nursing working on increasing bowel motivation. Weight with decrease and creatinine increased to 1.3 -- will stop IV Lasix. Continue Rocephin. Encourage activities and therapy. 08/23/17 Patient still somnolent. Leukocytosis increasing 9.8-->11.9-->13.1 despite continuation of ceftriaxone for UTI (+ sensitivity for ceftriaxone on C&S). Check CXR. Remains in NSR at this time. Continues amiodarone . Cardiology following. Patient with minimal intake. Is on fluid restriction d/t recent fluid overload , but pt isn't taking much po. May consider IVF's if she isn't taking more p.o.
[2017-08-23] MEDS: CEFTRIAXONE 1 G in NS 100 ML IV SCH (16:49)
[2017-08-24] MEDS: MIDODRINE 5 MG TABLET PO SCH ×3 (06:17→15:09)
[2017-08-24] MEDS: LEVOTHYROXINE 50 MCG TABLET PO SCH (06:18)
[2017-08-24] MEDS: CLOPIDOGREL 75 MG TABLET PO SCH (08:57)
[2017-08-24] MEDS: POLYETHYL GLYCOL 3350 17gm PACKET PO SCH (08:57)
[2017-08-24] MEDS: ENOXAPARIN 40 MG/0.4 ML INJECTION SQ SCH (08:57)
[2017-08-24] MEDS: AMIODARONE 200 MG TABLET PO SCH (08:58)
[2017-08-24] MEDS: DOCUSATE SODIUM 100 MG CAPSULE PO SCH (08:58)
[2017-08-24] MEDS: CYANOCOBALAMIN (B-12) 1,000mcg/ml INJECTION IM SCH (08:59)
[2017-08-24] MEDS: ASPIRIN *EC* 81 MG TABLET PO SCH (08:59)
[2017-08-24] MEDS: MEMANTINE 10 MG TABLET PO SCH ×2 (08:59→20:32)
[2017-08-24] MEDS: SALINE 0.65% NASAL SPRAY 44 ML BOTTLE EA NOSTRIL SCH ×4 (08:59→20:32)
--- NOTE | 2017-08-24 10:55 | XRay Report ---
Indication: leukocytosis PROCEDURE: XR chest 1V: Encounter: Initial Comparison: August 22, 2017 Findings: Patchy bilateral areas of airspace disease are stable to slightly improved allowing for differences in technique. No new or worsening airspace disease. No pneumothorax. Trace pleural effusions. Heart size and mediastinal contours are stable. Multiple overlying leads projecting over the left lower lung field. Impression: Stable to slightly improved appearance of the lungs. .
[2017-08-24] MEDS: SALINE FLUSH 10ml SYRINGE IV PRN ×2 (11:07→15:09)
[2017-08-24] MEDS: CEFTRIAXONE 1 G in NS 100 ML IV SCH (15:12)
--- NOTE | 2017-08-24 15:38 | Progress Note ---
- Date 08/24/17 Subjective: Naseem was seen with her daughter at bedside this am. The pt remains drowsy but nursing reports she has been eating 15-20% of meals today and is drinking nutritional supplements with assistance of her daughter. She's had no nausea or vomiting. Her daughter expresses concern about drowsiness and that the patient isn't speaking since atrial fibrillation early this week. Nursing reports she had a small bowel movement earlier. Patient nods yes and no occasionally but not consistently and dictating no dyspnea or pain. She has not been ambulating several days or out of bed in the past 24 hours. Objective Vital signs: Temperature 96.8 F 08/24/17 07:52 Pulse Rate 65 08/24/17 09:05 Respiratory Rate 16 08/24/17 07:52 Blood Pressure 98/57 08/24/17 09:05 Pulse Oximetry 94 - 1 L 08/24/17 07:52 I/O 460/400 NAD, drowsy, conjugate gaze, sclera anicteric Respirations nonlabored, fair airflow, breath sounds clear anteriorly and upper/ mid posterior lung gaines Regular rhythm, S1-S2, 2/6 systolic ejection murmur upper sternal borders Abdomen soft, nontender, nondistended, active bowel sounds Extremities without edema Withdraws right upper and lower extremities briskly to stimulation, increased motor tone left upper extremity with minimal withdrawal, withdraws left lower extremity less vigorously than right Rhythm: Normal Sinus Rhythm Height/Weight/BMI: Height 1.65 m Weight 59 kg Body Mass Index 25.2 Results - Labs CBC & Chem 7: 08/24/17 04:05 08/24/17 04:05 Labs: Blood sugars 143-192 past 24 hours - Imaging and Cardiology Chest x-ray Status: image reviewed by me (NAD-slightly improved from prior film.) Assessment and Plan (1) Sepsis Current visit: Yes Status: Acute (2) Recurrent UTI Problem details: failed outpt therapy; recurrent Current visit: No Status: Resolved Assessment and Plan: Assessment Sepsis secondary to UTI as indicated by tachycardia, fever, altered level of consciousness and hypotension. UTI - Recurrent, frequent -- E coli growing from culture 08/14/17 Chronic urinary retention--Indwelling Ramirez - since 02/2017 - changed 08/15/17. Encephalopathy -secondary to sepsis and UTI Pulmonary edema Bilateral pleural effusions - 08/18/17 Acute hypoxic respiratory insufficiency secondary to pulmonary edema Hypernatremia (not POA) Hypokalemia (not POA) Generalized weakness and debility - Acute due to illness Paroxysmal atrial fibrillation Developed RVR 08/18 S/P Cardioversion on 08/19 Severe aortic stenosis Orthostatic hypotension Diabetes mellitus, type 2 CAD H/O Chronic kidney disease, stage III. Hypothyroidism Dementia Chronic constipation Osteoarthritis Hx DVT Hx CVA- 2011 Obstipation Plan Patient remains somnolent but oral intake is improved today and she is acknowledging examiner also improved from yesterday. Will attempt to get patient up in chair today; PT/OT can attempt ambulation tomorrow. Leukocytosis improved today-may have aspirated with emesis 2 days ago but no indication of aspiration pneumonitis by x-ray. Day 7 ceftriaxone for UTI. Sodium up to 147, BUN up further today. Conjunction with poor oral intake and laboratory signs of dehydration will hydrate with 1 L 1/2 NS. Remains in sinus rhythm by my review of telemetry and exam. Persistent encephalopathy-increase activity as tolerates. Avoid sedating medications. Continue vitamin B 12-will resume oral administration at discharge. Blood sugars stable; blood pressure borderline low-reassess after fluids. - Physician Narrative Narrative: Date: 08/24/17 Time: 1535 Hospital Course Summary Disclaimer: The visit summary below is not to be considered part of the above Progress Note. Hospital Course: 08/15/[facility] the [facility] of Dr. Martinez. 1L NS initiated in ED. Will continue NS 100cc/hr for hydration. Cefepime 1g IV given in ED. Continue empiric coverage for urinary pathogens with Cefepime IV Q6H. UA culture from 08/14/17 revealing gram negative rods. Monitor for sensitives and new UA culture results. Blood culture obtained and results pending. Monitor closely on telemetry. Continue home medications. Monitor blood pressure closely. Monitor daily weight and urinary output closely for signs of fluid overload. Renal function stable. Upon discharge, patient's care will be returned to Dr Caballero. Patient is a DNR. 08/17/17 Sepsis secondary to UTI as indicated by tachycardia, fever, altered level of consciousness and hypotension. -IVF -Repeat lactate-normalized -Mental status improving UTI -Recurrent, frequent -Indwelling Ramirez- since 02/2017 - changed 08/15/17. -On cefepime -Bl cx NGTD -Urine cx from 08/15 NGTD, the one done on 08/14 growing E. coli sensitive to cefepime Altered level of consciousness. -This is usual for her when she gets an UTI per daughter -She does have underlying dementia -This is improved today Generalized weakness and debility. -Due to UTI -consult PT PAF -Not on OAC -Metoprolol 25mg q6hr prn started by nighttime MD -With her hypotension, she may not tolerate this. -Will try low dose digoxin and monitor History of CVA - 2011. -On aspirin and Plavix Dementia. -On Namenda XR Hypothyroid -continue levothyroxine -Last free T4 1.84 in November 2016 Severe aortic stenosis. -SKYE 0.7cm2 per HC 08/2016 Orthostatic hypotension -Continue midodrine History of DVT to left arm. -S/P Mechanical clot removal Diabetes mellitus, type 2. -Continue Janumet -Last A1C I can find was in november 2016 and was 5.3% Constipation. -On Colace daily H/O Chronic kidney disease, stage III. -Creatinine normal here and I do not see any elevations in recent history CAD -H/O stents 2017 -HC 08/2016 showing LVEF 65%, SKYE 0.7cm2, 70-80% LAD, 30% LCx, 70-75% RCA -CHRIS to RCA 09/2016 -CHRIS to LAD 01/2017 Hypothyroidism. -Continue levothyroxine Osteoarthritis. 08/18/17 Oxygen needs continue to increase. Chest X-ray this morning does revel small bilateral pleural effusions and pulmonary edema. Lasix 40 mg IV x1 given this morning, will give repeat 40mg IV Lasix this evening. IVF stopped. Continue to monitor urinary output via Ramirez cath (chronic- changed 08/15) Trend daily weights. she is up 5 Kg from admission Change cefepime for ceftriaxone for treatment of Ecoli UTI. Continue to monitor Accu-Cheks Recheck CBC in am due to UTI/Resolving sepsis. Will recheck BMP in am secondary to Lasix use. Lovenox subcutaneous daily for DVT prophylaxis 08/19/17 Transferred to CCU overnight secondary to Afib with RVR, diltiazem drip started. HR showing improvement. Will consult with Dr Vanessa for treatment recommendations for afib. Digoxin level slightly subtherapeutic at 0.7 - could be increased. Will continue with Rocephin for urinary coverage. Lasix 20mg IV x1 to help mobilize pulmonary edema. Will recheck CXR in am. Weight trending down. Output increased with Lasix yesterday. Continue with supplemental O2, weaning as able. Encourage oral intake. 08/20/17 Will start KCL bolus at 50cc/hr as potassium with significant decrease due to Lasix. Weight with decreased. CXR without change, but O2 sats improved with less O2 flow (3L). Continue ceftriaxone for urinary coverage. Encouraging that oral drive increasing. Likely transfer to medical floor later today. Will have PT/OT restart work tomorrow. 08/21/17 CXR showing gradual improvement. O2 needs decreasing (down to 2L, and weaning). Creatinine stable. Potassium improved to 3.7. Will decrease IV Lasix to 40mg twice a day - worry for overdiuresis with patients decreased oral drive. Diamox 500mg x1 as CO2 increasing. Encourage oral intake. Encourage activities with therapy. Will continue Rocephin for urinary coverage. 08/22/17 Continued improvement in CXR and O2 need. Patient still somnolent. Nursing working on increasing bowel motivation. Weight with decrease and creatinine increased to 1.3 -- will stop IV Lasix. Continue Rocephin. Encourage activities and therapy. 08/23/17 Patient still somnolent. Leukocytosis increasing 9.8-->11.9-->13.1 despite continuation of ceftriaxone for UTI (+ sensitivity for ceftriaxone on C&S). Check CXR. Remains in NSR at this time. Continues amiodarone . Cardiology following. Patient with minimal intake. Is on fluid restriction d/t recent fluid overload , but pt isn't taking much po. May consider IVF's if she isn't taking more p.o. 08/24/17 Patient remains somnolent but oral intake is improved today and she is acknowledging examiner also improved from yesterday. Will attempt to get patient up in chair today; PT/OT can attempt ambulation tomorrow. Leukocytosis improved today-may have aspirated with emesis 2 days ago but no indication of aspiration pneumonitis by x-ray. Day 7 ceftriaxone for UTI. Sodium up to 147, BUN up further today. Conjunction with poor oral intake and laboratory signs of dehydration will hydrate with 1 L 1/2 NS. Remains in sinus rhythm by my review of telemetry and exam. Persistent encephalopathy-increase activity as tolerates. Avoid sedating medications. Continue vitamin B 12-will resume oral administration at discharge. Blood sugars stable; blood pressure borderline low-reassess after fluids.
[2017-08-24] MEDS ORDERED: 1/2 NS 1,000 ML IV SCH (15:45)
[2017-08-24] MEDS ORDERED: DEXTROSE 50% SYRINGE 50ml (1 AMP) IVP PRN (21:50)
[2017-08-24] MEDS ORDERED: GLUCOSE ORAL GEL 40% 37.5gm PO PRN (21:50)
[2017-08-24] MEDS: INSULIN ASPART 100unit/ml INJECTION SQ PRN (22:04)
[2017-08-25] MEDS: MIDODRINE 5 MG TABLET PO SCH ×4 (06:14→16:05)
[2017-08-25] MEDS: LEVOTHYROXINE 50 MCG TABLET PO SCH (06:14)
--- NOTE | 2017-08-25 08:33 | Progress Note ---
- Date 08/25/17 Subjective: JOHNY was in bed, resting comfortably. She opened her eyes with verbal. She is visibly thinner since the last time I saw her in April, - looking at weights she's down about 5 kg. Her dementia has progressed. 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 She was in no acute distress, maintaining sats on 1L. She had low BP this am 87/59. She went into rate-controlled A-fib around 0500. Objective Vital signs: Temperature 98.3 F 08/25/17 07:21 Pulse Rate 79 08/25/17 07:33 Respiratory Rate 14 08/25/17 07:21 Blood Pressure 87/59 08/25/17 07:21 Pulse Oximetry 95 08/25/17 07:21 Rhythm: Atrial Fibrillation with Normal Ventricular Rate Height/Weight/BMI: Height 1.65 m Weight 60.5 kg Body Mass Index 25.2 - Constitutional Present: no acute distress, well nourished, well developed - Routine HEENT Exam Head: Present: normocephalic Eye: Absent: conjunctival icterus, scleral injection - Routine Respiratory Exam Present: decreased breath sounds - Routine Cardiovascular Exam Present: murmur, irregularly irregular - Routine Abdominal Exam Present: soft, normoactive bowel sounds, non distended, non tender - Routine Extremities Exam Present: no edema, pulses intact - Routine Musculoskeletal Exam Musculoskeletal: Present: no clubbing or cyanosis - Routine Skin Exam Present: intact, dry, warm - Routine Neurological Exam Absent: oriented X3 - Routine Psychiatric Exam Present: cooperative. Absent: normal thought process Results - Labs CBC & Chem 7: 08/25/17 04:38 08/25/17 04:38 Assessment and Plan (1) Recurrent UTI Problem details: failed outpt therapy; recurrent Current visit: No Status: Resolved (2) Sepsis Current visit: Yes Status: Acute Assessment and Plan: Assessment Sepsis secondary to UTI as indicated by tachycardia, fever, altered level of consciousness and hypotension. UTI - Recurrent, frequent -- E coli growing from culture 08/14/17 Chronic urinary retention--Indwelling Ramirez - since 02/2017 - changed 08/15/17. Encephalopathy -secondary to sepsis and UTI Pulmonary edema Bilateral pleural effusions - 08/18/17 Acute hypoxic respiratory insufficiency secondary to pulmonary edema Hypernatremia (not POA) Hypokalemia (not POA) Generalized weakness and debility - Acute due to illness Paroxysmal atrial fibrillation Developed RVR 08/18 S/P Cardioversion on 08/19 A-fib 08/25 Severe aortic stenosis Orthostatic hypotension Diabetes mellitus, type 2 CAD H/O Chronic kidney disease, stage III. Hypothyroidism Dementia Chronic constipation Osteoarthritis Hx DVT Hx CVA- 2011 Obstipation Plan Somnolent, confused. Poor intake with supper last night. Persistent hypernatremia with mild improvement. BUN also improved. Tele reviewed - shows A-fib with normal rate. She went into a-fib around 0500. Hypotension with BP 87/59, UO overall poor over the last few days - give NS 250 mL bolus. CXR from 08/23 reviewed - pulm edema noted; will need to monitor resp status/sats closely. Rocephin day #8 for E. coli UTI. Repeat UC from 08/15 was neg. Discussed with RN. DVT Prophylaxis: Lovenox Resuscitation Status: Do Not Resuscitate - Physician Narrative Physician: Jolene Box MD Narrative: Date: 08/25/17 Time: 1700 I have independently evaluated and examined this patient. I reviewed the chart, the patient's history, and the [employer]/PA's documented findings as above. We discussed and formulated the assessment and plan as above with additions as below: Mrs. La was seen this morning and again early afternoon when she was up in a chair. Initially she complained of feeling cold and wanted her blankets pulled up to her shoulders. When Mariajose was present she responded more readily and indicated that she remembers me from other visits but again drifted to sleep when not being actively stimulated. She appeared to eat better at lunch and she has prior days. NAD, drowsy, more interactive this afternoon than in the morning Respirations nonlabored, abdomen benign Mild suprapubic tenderness may be present-patient indicated discomfort with deep palpation CT head obtained and reviewed by myself-no hemorrhage, old strokes and extensive atrophy present; formal report pending ABG without evidence of CO2 retention Repeat UA with 50-200 WBCs, negative nitrite--urine culture pending Persistent lethargy-unclear if this represents anoxic encephalopathy following recent pulmonary edema although minimal hypoxia described, slow recovery from acute illness, new stroke, or new infection is unclear. Additional studies pending. Transiently in rate controlled A. fib for approximately 2.5-3 hours this morning ; remains in sinus rhythm this afternoon. Telemetry strips reviewed by myself. Hospital Course Summary Disclaimer: The visit summary below is not to be considered part of the above Progress Note. Hospital Course: 08/15/17 Admit to [facility] status under the care of Dr. Martinez. 1L NS initiated in ED. Will continue NS 100cc/hr for hydration. Cefepime 1g IV given in ED. Continue empiric coverage for urinary pathogens with Cefepime IV Q6H. UA culture from 08/14/17 revealing gram negative rods. Monitor for sensitives and new UA culture results. Blood culture obtained and results pending. Monitor closely on telemetry. Continue home medications. Monitor blood pressure closely. Monitor daily weight and urinary output closely for signs of fluid overload. Renal function stable. Upon discharge, patient's care will be returned to Dr Caballero. Patient is a DNR. 08/17/17 Sepsis secondary to UTI as indicated by tachycardia, fever, altered level of consciousness and hypotension. -IVF -Repeat lactate-normalized -Mental status improving UTI -Recurrent, frequent -Indwelling Ramirez- since 02/2017 - changed 08/15/17. -On cefepime -Bl cx NGTD -Urine cx from 08/15 NGTD, the one done on 08/14 growing E. coli sensitive to cefepime Altered level of consciousness. -This is usual for her when she gets an UTI per daughter -She does have underlying dementia -This is improved today Generalized weakness and debility. -Due to UTI -consult PT PAF -Not on OAC -Metoprolol 25mg q6hr prn started by nighttime MD -With her hypotension, she may not tolerate this. -Will try low dose digoxin and monitor History of CVA - 2011. -On aspirin and Plavix Dementia. -On Namenda XR Hypothyroid -continue levothyroxine -Last free T4 1.84 in November 2016 Severe aortic stenosis. -SKYE 0.7cm2 per HC 08/2016 Orthostatic hypotension -Continue midodrine History of DVT to left arm. -S/P Mechanical clot removal Diabetes mellitus, type 2. -Continue Janumet -Last A1C I can find was in november 2016 and was 5.3% Constipation. -On Colace daily H/O Chronic kidney disease, stage III. -Creatinine normal here and I do not see any elevations in recent history CAD -H/O stents 2016 -HC 08/2016 showing LVEF 65%, SKYE 0.7cm2, 70-80% LAD, 30% LCx, 70-75% RCA -CHRIS to RCA 09/2016 -CHRIS to LAD 01/2017 Hypothyroidism. -Continue levothyroxine Osteoarthritis. 08/18/17 Oxygen needs continue to increase. Chest X-ray this morning does revel small bilateral pleural effusions and pulmonary edema. Lasix 40 mg IV x1 given this morning, will give repeat 40mg IV Lasix this evening. IVF stopped. Continue to monitor urinary output via Ramirez cath (chronic- changed 08/15) Trend daily weights. she is up 5 Kg from admission Change cefepime for ceftriaxone for treatment of Ecoli UTI. Continue to monitor Accu-Cheks Recheck CBC in am due to UTI/Resolving sepsis. Will recheck BMP in am secondary to Lasix use. Lovenox subcutaneous daily for DVT prophylaxis 08/19/17 Transferred to CCU overnight secondary to Afib with RVR, diltiazem drip started. HR showing improvement. Will consult with Dr Vanessa for treatment recommendations for afib. Digoxin level slightly subtherapeutic at 0.7 - could be increased. Will continue with Rocephin for urinary coverage. Lasix 20mg IV x1 to help mobilize pulmonary edema. Will recheck CXR in am. Weight trending down. Output increased with Lasix yesterday. Continue with supplemental O2, weaning as able. Encourage oral intake. 08/20/17 Will start KCL bolus at 50cc/hr as potassium with significant decrease due to Lasix. Weight with decreased. CXR without change, but O2 sats improved with less O2 flow (3L). Continue ceftriaxone for urinary coverage. Encouraging that oral drive increasing. Likely transfer to medical floor later today. Will have PT/OT restart work tomorrow. 08/21/17 CXR showing gradual improvement. O2 needs decreasing (down to 2L, and weaning). Creatinine stable. Potassium improved to 3.7. Will decrease IV Lasix to 40mg twice a day - worry for overdiuresis with patients decreased oral drive. Diamox 500mg x1 as CO2 increasing. Encourage oral intake. Encourage activities with therapy. Will continue Rocephin for urinary coverage. 08/22/17 Continued improvement in CXR and O2 need. Patient still somnolent. Nursing working on increasing bowel motivation. Weight with decrease and creatinine increased to 1.3 -- will stop IV Lasix. Continue Rocephin. Encourage activities and therapy. 08/23/17 Patient still somnolent. Leukocytosis increasing 9.8-->11.9-->13.1 despite continuation of ceftriaxone for UTI (+ sensitivity for ceftriaxone on C&S). Check CXR. Remains in NSR at this time. Continues amiodarone . Cardiology following. Patient with minimal intake. Is on fluid restriction d/t recent fluid overload , but pt isn't taking much po. May consider IVF's if she isn't taking more p.o. 08/24/17 Patient remains somnolent but oral intake is improved today and she is acknowledging examiner also improved from yesterday. Will attempt to get patient up in chair today; PT/OT can attempt ambulation tomorrow. Leukocytosis improved today-may have aspirated with emesis 2 days ago but no indication of aspiration pneumonitis by x-ray. Day 7 ceftriaxone for UTI. Sodium up to 147, BUN up further today. Conjunction with poor oral intake and laboratory signs of dehydration will hydrate with 1 L 1/2 NS. Remains in sinus rhythm by my review of telemetry and exam. Persistent encephalopathy-increase activity as tolerates. Avoid sedating medications. Continue vitamin B 12-will resume oral administration at discharge. Blood sugars stable; blood pressure borderline low-reassess after fluids. 08/25/17 Somnolent, confused. Poor intake with supper last night. Persistent hypernatremia with mild improvement. BUN also improved. Tele reviewed - shows A-fib with normal rate. She went into a-fib around 0500. Hypotension with BP 87/59, UO overall poor over the last few days - give NS 250 mL bolus. CXR from 08/23 reviewed - pulm edema noted; will need to monitor resp status/sats closely. Rocephin day #8 for E. coli UTI. Repeat UC from 08/15 was neg. Addendum entered and electronically signed by Renee Broussard APRN 08/25/17 14: 06: Mariajose arrived in the afternoon. She reports that prior to this hospitalization her mother was eating full plates of food (though needs to be fed), doing upper arm exercises with 1 lb weights, and was able to pull her own shirt on. She is concerned that even if her UTI has resolved she is still recovering from a-fib ( which is now in sinus), cardioversion, and need for diuresis. Luna was able to drink a mighty shake for Mariajose and she just ordered lunch for her. Her IV line was dc'd earlier today but Mariajose would like to wait on placing a midline - re- eval tomorrow. Rocephin to be given IM today. re-ordered.
[2017-08-25] MEDS: ENOXAPARIN 40 MG/0.4 ML INJECTION SQ SCH (08:40)
[2017-08-25] MEDS: POLYETHYL GLYCOL 3350 17gm PACKET PO SCH ×2 (08:40→08:50)
[2017-08-25] MEDS: NS 1,000 ML IV SCH ×2 (08:40→09:40)
[2017-08-25] MEDS: ASPIRIN *EC* 81 MG TABLET PO SCH ×2 (08:41→08:49)
[2017-08-25] MEDS: SALINE 0.65% NASAL SPRAY 44 ML BOTTLE EA NOSTRIL SCH ×4 (08:41→21:00)
[2017-08-25] MEDS: SENNA + DOCUSATE TABLET PO PRN (08:41)
[2017-08-25] MEDS: CLOPIDOGREL 75 MG TABLET PO SCH ×2 (08:41→08:50)
[2017-08-25] MEDS: MEMANTINE 10 MG TABLET PO SCH ×3 (08:41→21:00)
[2017-08-25] MEDS: AMIODARONE 200 MG TABLET PO SCH ×2 (08:41→08:48)
[2017-08-25] MEDS: DOCUSATE SODIUM 100 MG CAPSULE PO SCH ×2 (08:42→08:50)
[2017-08-25] MEDS ORDERED: LIDOCAINE 1% (10mg/ml) 5ml PF SDV IJ SCH (14:30)
[2017-08-25] MEDS: CEFTRIAXONE 1 G INJECTION IM SCH (15:47)
[2017-08-25] MEDS: LIDOCAINE 1% (10mg/ml) 5ml PF SDV IJ SCH (15:48)
--- NOTE | 2017-08-25 15:53 | Cardiology Progress Note ---
<Sandra Guevara M - Last Filed: 08/26/17 08:01> Subjective Principal diagnosis: AFib RVR Interval history: Margarita is seen in follow up for AFib with RVR. She is seen in her room on Medical , her daughter is at the bedside. She went into atrial fibrillation this am around 0500 but is in SR now. Exam Vital signs: Temperature 98.3 F 08/25/17 07:21 Pulse Rate 75 08/25/17 08:02 Respiratory Rate 14 08/25/17 07:21 Blood Pressure 87/59 08/25/17 07:21 Pulse Oximetry 95 08/25/17 07:21 Inpatient Medications: Generic Name Dose Route Start Last Admin Trade Name Freq PRN Reason Stop Dose Admin Acetaminophen 650 mg 08/15/17 19:04 08/22/17 08:28 Tylenol PO 650 mg Q5H PRN Administration Discomfort Amiodarone HCl 100 mg 08/19/17 15:30 08/25/17 08:48 Pacerone PO Not Given DAILY [facility] Aspirin 81 mg 08/16/17 09:00 08/25/17 08:49 Ecotrin PO Not Given DAILY [facility] Bisacodyl 10 mg 08/22/17 17:05 Dulcolax RECTALLY DAILY PRN Constipation Ceftriaxone Sodium 1 g 08/25/17 14:30 08/25/17 15:47 Rocephin 1 Gm Vial IM 1 g Q24H [facility] Administration Clopidogrel Bisulfate 75 mg 08/17/17 09:00 08/25/17 08:50 Plavix PO Not Given DAILY [facility] Cyanocobalamin 1,000 mcg 08/17/17 09:00 08/24/17 08:59 Vit. B-12 IM 1,000 mcg Abarca [facility] Administration Dextrose 10 ml 08/24/17 21:50 D50%W IVP PRN PRN Hypoglycemia Docusate Sodium 100 mg 08/16/17 09:00 08/25/17 08:50 Colace PO Not Given DAILY [facility] Enoxaparin Sodium 40 mg 08/17/17 04:00 08/25/17 08:40 Lovenox SQ 40 mg DAILY [facility] Administration Glucose 37.5 gm 08/24/17 21:50 Glutose 15 PO PRN PRN Hypoglycemia Ceftriaxone Sodium 1 g/ Sodium 100 mls @ 200 mls/hr 08/18/17 14:45 08/24/17 15:42 Chloride IV Infused Q24H [facility] Infusion Insulin Aspart 1 - 5 unit 08/24/17 21:50 08/24/17 22:04 Novolog SQ 1 unit SS PRN Administration Hyperglycemia Protocol Levothyroxine Sodium 50 mcg 08/18/17 06:30 08/25/17 06:14 Synthroid PO 50 mcg ACB [facility] Administration Lidocaine HCl 21 mg 08/25/17 14:30 08/25/17 15:48 Xylocaine-Mpf 1% Vial IJ 21 mg Q24H [facility] Administration Memantine 10 mg 08/16/17 09:00 08/25/17 08:49 Namenda PO Not Given BID [facility] Midodrine 5 mg 08/18/17 11:00 08/25/17 12:24 Proamatine PO 5 mg 0700,1100,1500 [facility] Administration Ondansetron HCl 4 mg 08/15/17 19:04 08/23/17 09:42 Zofran IVP 4 mg Q6H PRN Administration Nausea &/or vomiting Polyethylene Glycol 17 gm 08/21/17 09:00 08/25/17 08:50 Miralax PO Not Given DAILY [facility] Senna/Docusate Sodium 1 tab 08/15/17 19:04 08/25/17 08:41 Senna Plus Tablet PO 1 tab BID PRN Administration Constipation Sodium Chloride 10 - 80 ml 08/15/17 15:23 08/23/17 16:50 Iv Flush IVF 10 ml PRN PRN Administration Flushing Sodium Chloride 500 ml 08/15/17 15:35 08/21/17 02:54 Normal Saline IV 500 ml PRN PRN Administration Sodium Chloride 10 ml 08/15/17 19:04 08/24/17 15:09 Iv Flush IV 10 ml PRN PRN Administration Flushing Sodium Chloride 2 spray 08/18/17 18:44 08/25/17 12:26 Deep Sea Nasal Moisturizing [place] EA NOSTRIL 2 spray QID [facility] Administration Sodium Phosphate 1 enema 08/22/17 10:00 Fleet Enema [place] PRN PRN Discontinued Medications Generic Name Dose Route Start Last Admin Trade Name Freq PRN Reason Stop Dose Admin Acetaminophen 650 mg 08/15/17 19:04 Tylenol Supp [place] Q5H PRN Pain Acetazolamide 500 mg 08/21/17 12:26 08/21/17 14:27 Diamox PO 08/21/17 12:27 500 mg O ONE Administration Amiodarone HCl 150 mg 08/21/17 02:24 08/21/17 02:56 Amiodarone IV 08/21/17 02:25 150 mg O ONE Administration Clopidogrel Bisulfate 75 mg 08/16/17 09:00 08/16/17 08:31 Plavix PO 75 mg DAILY [facility] Administration Cyanocobalamin 5,000 mcg 08/16/17 09:00 08/16/17 09:26 Vit. B-12 PO 5,000 mcg DAILY [facility] Administration Cyanocobalamin 0 mcg 08/17/17 09:00 Vit. B-12 PO DAILY [facility] Digoxin 125 mcg 08/17/17 12:00 08/19/17 08:57 Lanoxin PO 125 mcg DAILY [facility] Administration Digoxin 500 mcg 08/21/17 02:24 08/21/17 02:54 Lanoxin IVP 08/21/17 02:25 500 mcg O ONE Administration Diltiazem HCl 10 mg 08/18/17 21:55 08/18/17 22:19 Cardizem 25 Mg Inj IVP 08/18/17 21:56 10 mg O ONE Administration Furosemide 40 mg 08/18/17 12:16 08/18/17 12:26 Lasix 40 Mg/4 Ml IVP 08/18/17 12:17 40 mg Q6HR ONE Administration Furosemide 40 mg 08/18/17 20:00 08/18/17 20:44 Lasix 40 Mg/4 Ml IVP 08/18/17 20:01 40 mg ONE TIME ONE Administration Furosemide 20 mg 08/19/17 10:19 08/19/17 10:31 Lasix 20 Mg/2 Ml IVP 08/19/17 10:20 20 mg ONCE ONE Administration Furosemide 40 mg 08/19/17 17:00 08/20/17 11:15 Lasix 40 Mg/4 Ml IVP 40 mg Q8HR [facility] Administration Furosemide 40 mg 08/20/17 22:00 08/22/17 07:02 Lasix 40 Mg/4 Ml IVP 40 mg 0600,1400,2200 [facility] Administration Cefepime HCl 1 gm/ Sodium 100 mls @ 200 mls/hr 08/15/17 15:23 08/15/17 16:20 Chloride IV 08/15/17 15:52 Infused O ONE Infusion Sodium Chloride 1,000 mls @ 1,000 mls/hr 08/15/17 15:23 08/15/17 17:07 Normal Saline IV 08/15/17 16:22 Infused .Q1H ONE Infusion Sodium Chloride 1,000 mls @ 100 mls/hr 08/15/17 19:15 08/18/17 11:37 Normal Saline IV Infused .Q10H [facility] Infusion Cefepime HCl 1 gm/ Sodium 100 mls @ 200 mls/hr 08/15/17 21:30 08/18/17 10:03 Chloride IV Infused Q6H [facility] Infusion Sodium Chloride 500 mls @ 500 mls/hr 08/15/17 22:59 08/15/17 23:20 Normal Saline IV 08/15/17 23:58 Not Given .Q1H ONE Cefepime HCl 1 gm/ Sodium 100 mls @ 200 mls/hr 08/18/17 16:00 Chloride IV Q6H [facility] Diltiazem HCl 125 mg/ Sodium 125 mls @ 5 mls/hr 08/18/17 23:00 08/19/17 13:52 Chloride IV 0 mls/hr .Q24H [facility] Infusion Protocol Amiodarone HCl 450 mg/ Sodium 250 mls @ 33.33 mls/hr 08/19/17 12:00 08/19/17 18:00 Chloride IV 08/19/17 18:00 0.99 mg/min .Q7H31M [facility] 33.33 mls/hr 1 MG/MIN Infusion Amiodarone HCl 900 mg/ Sodium 500 mls @ 16.66 mls/hr 08/19/17 18:00 Chloride IV .Q24H [facility] 0.5 MG/MIN Amiodarone HCl 150 mg/ Sodium 103 mls @ 618 mls/hr 08/19/17 11:57 08/19/17 12 :52 Chloride IV 08/19/17 12:06 Infused O ONE Infusion Potassium Chloride 10 meq in 100 mls @ 100 mls/hr 08/20/17 05:37 08/20/17 08: 07 Potassium Chloride Premix IV 08/20/17 06:36 Infused O ONE Infusion Lidocaine HCl 10 mg/ Potassium 100 mls @ 50 mls/hr 08/20/17 10:30 08/20/17 19 :55 Chloride 10 meq/ Sodium IV 08/20/17 18:57 Infused Chloride .Q2H [facility] Infusion Sodium Chloride 1,000 mls @ 75 mls/hr 08/24/17 15:45 08/25/17 05:40 1/2 Normal Saline IV 08/25/17 05:04 Infused .[id number] [facility] Infusion Sodium Chloride 1,000 mls @ 250 mls/hr 08/25/17 08:45 08/25/17 09:40 Normal Saline IV 08/25/17 09:44 Not Given .Q4H [facility] Levothyroxine Sodium 50 mcg 08/16/17 06:30 08/17/17 05:58 Synthroid PO 50 mcg ACB [facility] Administration Lidocaine HCl 2.1 mg 08/25/17 14:30 Xylocaine-Mpf 1% Vial IJ Q24H [facility] Metoprolol Tartrate 25 mg 08/17/17 03:29 08/17/17 03:59 Lopressor PO 25 mg Q6H PRN Administration Midodrine 5 mg 08/15/17 21:00 08/17/17 08:59 Proamatine PO 5 mg TID [facility] Administration Midodrine 5 mg 08/17/17 09:00 08/18/17 09:28 Proamatine PO 08/18/17 10:00 5 mg TID [facility] Administration Non-Formulary Medication 5,000 mcg 08/16/17 09:00 Cyanocobalamin (Vitamin B-12) [B-12] SL DAILY [facility] Non-Formulary Medication 28 mg 08/16/17 09:00 Memantine Hcl [Namenda Xr] PO DAILY [facility] Non-Formulary Medication 1 tab 08/15/17 21:00 Sitagliptin Phos/Metformin Hcl [Janumet 50-500 Mg Tablet] PO BID [facility] Pharmacy Consult 1 each 08/21/17 22:40 Pharmacy Consult - Fall Risk 08/21/17 22:41 ONE TIME ONE Potassium Chloride 40 meq 08/19/17 15:36 K-Dur 20 Meq Tablet PO 08/19/17 15:37 O ONE Potassium Chloride 40 meq 08/20/17 05:37 08/20/17 05:44 K-Dur 20 Meq Tablet PO 08/20/17 05:38 40 meq O ONE Administration Potassium Chloride 20 meq 08/20/17 17:30 08/22/17 12:14 K-Dur 20 Meq Tablet PO 20 meq TIDWM [facility] Administration - Constitutional no acute distress, well nourished, cooperative - Routine HEENT Exam Head: Present: normocephalic ENT: Present: mucous membranes moist - Routine Neck Exam Absent: JVD, carotid bruit - Routine Chest/Breast/Axilla Exam Chest wall: Absent: tenderness - Routine Respiratory Exam Present: decreased breath sounds. Absent: dyspnea - Routine Cardiovascular Exam Present: RRR, murmur (II/). Absent: JVD - Routine Abdominal Exam Present: soft, non tender - Routine Extremities Exam Present: no edema - Routine Skin Exam Present: intact, dry, warm - Routine Neurological Exam Present: alert, oriented X3 - Routine Psychiatric Exam Present: normal affect, normal thought process - Urinary Catheter Management Urethral Cath placed during this visit: yes, but has since been removed by the nurse Insertion date: 08/21/17 Insertion time: 12:30 Removal date: 08/21/17 Removal time: 12:00 Results 08/26/17 04:55 08/26/17 04:55 CBC 08/25/17 Range/Units 04:38 WBC 9.5 (4.5-11.0) T/MM3 RBC 3.43 L (4.00-5.20) M/MM3 Hgb 10.4 L (12-16) GM/DL Hct 34.2 L (36-46) % Plt Count 395 (130-400) T/MM3 Neut # (Auto) 6.5 (1.8-7.7) T/MM3 Lymph # (Auto) 1.5 (1-4.8) T/MM3 Coke # (Auto) 0.9 H (0-0.8) T/MM3 Eos # (Auto) 0.5 (0-0.5) T/MM3 Baso # (Auto) 0.0 (0-0.2) T/MM3 Comprehensive Metabolic Panel 08/25/17 Range/Units 04:38 Sodium 146 H (134-144) MEQ/L Potassium 4.0 (3.6-5) MEQ/L Chloride 103 (98-107) MEQ/L Carbon Dioxide 34 H (22-30) MEQ/L BUN 39.0 H (7-17) MG/DL Creatinine 0.9 (0.7-1.2) mg/dL Glucose 143 H (65-110) MG/DL Calcium 9.3 (8.4-10.2) MG/DL Intake and Output 08/25/17 08/25/17 08/25/17 06:59 14:59 22:59 Intake Total 1000 / 1000 295 / 295 Output Total 150 / 150 130 / 130 Balance 850 / 850 165 / 165 Intake: IV 1000 / 1000 1/2 Ns 1,000 ml @ 75 mls/hr IV 1000 / 1000 .[id number] [facility] Rx#:[id number] Oral 295 / 295 Output: Urine Amount (Catheter) 150 / 150 130 / 130 Other: Urine Appearance Sediment Cloudy Urine Color Dark Yellow Light Dede Urine Odor Normal Stool Characteristics Mucoid Stool Color Brown Yellow Stool Consistency Formed Loose Size of Bowel Movement Moderate # Incontinent Voids 1 Weight 133 lb 6.075 oz Patient Weight 08/26/17 06:59 Weight 133 lb 6.075 oz - Imaging and Cardiology Imaging & Cardiology Narrative: Date of Exam: 08/23/17 Ordering Provider: Maria C Garg Type of Exam(s): XR chest 1V Reason for Exam(s): leukocytosis Indication: leukocytosis PROCEDURE: XR chest 1V: Encounter: Initial Comparison: August 22, 2017 Findings: Patchy bilateral areas of airspace disease are stable to slightly improved allowing for differences in technique. No new or worsening airspace disease. No pneumothorax. Trace pleural effusions. Heart size and mediastinal contours are stable. Multiple overlying leads projecting over the left lower lung field. Impression: Stable to slightly improved appearance of the lungs. 08/25/17 15:55 08/26/17 08:10 Date of Exam: 08/25/17 Ordering Provider: Jolene Box MD Type of Exam(s): CT head/brain wo con Reason for Exam(s): altered level of conciousness EXAM: CT head/brain wo con HISTORY: altered level of conciousness COMPARISON: Prior examination dated 05/05/[address] scan is performed without intravenous contrast administration. The current CT scan was performed using radiation dose-reduction techniques. There is diffuse cortical atrophy. There is proportionate prominence of the ventricles. The ventricles are midline without evidence of mass effect or shift. There is normal anne-white matter differentiation. There is no evidence of acute intracranial hemorrhage or acute transcortical infarct. Again visualized is the encephalomalacia in the right MCA territory and right [employer] territory the site of the prior ischemic insults. There is also an old ischemic insult in the left superior parietal lobe. There is diffuse periventricular white matter hypoattenuation likely reflecting chronic small vessel ischemic change. No extra-axial masses or fluid collections are seen. The bony calvarium appears intact and the visualized portions of the paranasal sinuses and mastoid air cells are clear. IMPRESSION: 1. No CT evidence of acute intracranial process. 2. Diffuse cortical atrophy and diffuse periventricular mild matter chronic small vessel ischemic change. 3. Old bilateral ischemic insults. Assessment and Plan - Assessment and Plan (1) Atrial fibrillation with RVR Current visit: Yes Status: Acute (2) Atherosclerotic heart disease of [place] coronary artery without angina pectoris Current visit: Yes Status: Chronic (3) Nonrheumatic aortic valve stenosis Current visit: Yes Status: Chronic (4) Syncope and collapse Current visit: Yes Status: Chronic (5) Hypotension Current visit: Yes Status: Chronic (6) Type 2 diabetes mellitus without complications Current visit: Yes Status: Chronic (7) Diastolic CHF Current visit: Yes Status: Acute - Assessment and Plan 08/19/17 A Fib with RVR: History of PAF, asymptomatic - Takes Amiodarone 100mg daily, not given this admission - Amiodarone bolus and drip - Npo for possible DCCV - Converted to SR - Resume home Amiodarone 100mg PO daily and stop IV - EKG now - Stop Digoxin. - Check TSh and Mag DCHF: Diurese with Lasix 40mg IV q8h - CXR: Diffuse airspace opacities throughout both lungs. Probable small bilateral pleural effusions. Close interval follow-up is recommended. - K+ 3.3, replace CAD: Stable. continue current therapy, routine monitoring. - Continue Aspirin and Plavix Hypotension: Continue Midodrine Thank you for allowing us to participate in the care of this patient. 08/20/17 AFib:Continue home dose Amiodarone 100mg daily - Not a candidate for snf anticoagulation due to age and fall risk DCHF: Diuresing well. - CXR: No significant change in diffuse bilateral airspace disease which could represent edema, pneumonia, massive aspiration or pulmonary hemorrhage. - Continue Lasix 40mg IV q8h - K+ 2.9, Replace K+ 20meq po with meals TID - TSH, Mag WNL - Monitor renal and electrolytes 08/21/17 Went back into AFib overnight. - Given 150mg IV Amiodarone bolus and Digoxin 500mcg - Converted back this afternoon to SR - Continue Amiodarone at 100mg daily CXR: Overall slight improvement in appearance of the chest may be due to resolving edema. - Continue diuresis - Monitor renal and electrolytes 08/22/17 BUN/SCr 39/ 1.3, NA 145 today, K+ 4.2 - Diuretic stopped by attending - Stop K+ replacement CXR: Impression: Continued improvement in pulmonary edema. 08/25/17 Accurate I & O please, need to watch fluid balance closely with patient's and history of hypotension. - Monitor renal and electrolytes - CXR 08/23/17: Stable to slightly improved appearance of the lungs. Hospital Course Summary Disclaimer: The visit summary below is not to be considered part of the above Progress Note. Hospital Course: 08/15/17 [facility] under the care of Dr. Martinez. 1L NS initiated in ED. Will continue NS 100cc/hr for hydration. Cefepime 1g IV given in ED. Continue empiric coverage for urinary pathogens with Cefepime IV Q6H. UA culture from 08/14/17 revealing gram negative rods. Monitor for sensitives and new UA culture results. Blood culture obtained and results pending. Monitor closely on telemetry. Continue home medications. Monitor blood pressure closely. Monitor daily weight and urinary output closely for signs of fluid overload. Renal function stable. Upon discharge, patient's care will be returned to Dr Caballero. Patient is a DNR. 08/17/17 Sepsis secondary to UTI as indicated by tachycardia, fever, altered level of consciousness and hypotension. -IVF -Repeat lactate-normalized -Mental status improving UTI -Recurrent, frequent -Indwelling Ramirez- since 02/2017 - changed 08/15/17. -On cefepime -Bl cx NGTD -Urine cx from 08/15 NGTD, the one done on 08/14 growing E. coli sensitive to cefepime Altered level of consciousness. -This is usual for her when she gets an UTI per daughter -She does have underlying dementia -This is improved today Generalized weakness and debility. -Due to UTI -consult PT PAF -Not on OAC -Metoprolol 25mg q6hr prn started by nighttime MD -With her hypotension, she may not tolerate this. -Will try low dose digoxin and monitor History of CVA - 2011. -On aspirin and Plavix Dementia. -On Namenda XR Hypothyroid -continue levothyroxine -Last free T4 1.84 in November 2016 Severe aortic stenosis. -SKYE 0.7cm2 per HC 08/2016 Orthostatic hypotension -Continue midodrine History of DVT to left arm. -S/P Mechanical clot removal Diabetes mellitus, type 2. -Continue Janumet -Last A1C I can find was in november 2016 and was 5.3% Constipation. -On Colace daily H/O Chronic kidney disease, stage III. -Creatinine normal here and I do not see any elevations in recent history CAD -H/O stents 2016 -HC 08/2016 showing LVEF 65%, SKYE 0.7cm2, 70-80% LAD, 30% LCx, 70-75% RCA -CHRIS to RCA 09/2016 -CHRIS to LAD 01/2017 Hypothyroidism. -Continue levothyroxine Osteoarthritis. 08/18/17 Oxygen needs continue to increase. Chest X-ray this morning does revel small bilateral pleural effusions and pulmonary edema. Lasix 40 mg IV x1 given this morning, will give repeat 40mg IV Lasix this evening. IVF stopped. Continue to monitor urinary output via Ramirez cath (chronic- changed 08/15) Trend daily weights. she is up 5 Kg from admission Change cefepime for ceftriaxone for treatment of Ecoli UTI. Continue to monitor Accu-Cheks Recheck CBC in am due to UTI/Resolving sepsis. Will recheck BMP in am secondary to Lasix use. Lovenox subcutaneous daily for DVT prophylaxis 08/19/17 Transferred to CCU overnight secondary to Afib with RVR, diltiazem drip started. HR showing improvement. Will consult with Dr Vanessa for treatment recommendations for afib. Digoxin level slightly subtherapeutic at 0.7 - could be increased. Will continue with Rocephin for urinary coverage. Lasix 20mg IV x1 to help mobilize pulmonary edema. Will recheck CXR in am. Weight trending down. Output increased with Lasix yesterday. Continue with supplemental O2, weaning as able. Encourage oral intake. <Lawrence Vanessa - Last Filed: 08/29/17 13:28> Exam Vital signs: Temperature 97 F 08/29/17 08:00 Pulse Rate 93 08/29/17 08:00 Respiratory Rate 18 08/29/17 08:00 Blood Pressure 102/65 08/29/17 08:00 Pulse Oximetry 95 08/29/17 08:00 Inpatient Medications: Generic Name Dose Route Start Last Admin Trade Name Freq PRN Reason Stop Dose Admin Acetaminophen 650 mg 08/15/17 19:04 08/22/17 08:28 Tylenol PO 650 mg Q5H PRN Administration Discomfort Amiodarone HCl 200 mg 08/26/17 09:00 08/29/17 08:52 Pacerone PO 200 mg DAILY [facility] Administration Aspirin 81 mg 08/16/17 09:00 08/29/17 08:52 Ecotrin PO 81 mg DAILY [facility] Administration Bisacodyl 10 mg 08/22/17 17:05 Dulcolax RECTALLY DAILY PRN Constipation Clopidogrel Bisulfate 75 mg 08/17/17 09:00 08/29/17 08:51 Plavix PO 75 mg DAILY [facility] Administration Cyanocobalamin 1,000 mcg 08/17/17 09:00 08/24/17 08:59 Vit. B-12 IM 1,000 mcg Abarca [facility] Administration Dextrose 10 ml 08/24/17 21:50 D50%W IVP PRN PRN Hypoglycemia Docusate Sodium 100 mg 08/27/17 13:57 Colace PO DAILY PRN Enoxaparin Sodium 40 mg 08/17/17 04:00 08/29/17 08:51 Lovenox SQ 40 mg DAILY [facility] Administration Glucose 37.5 gm 08/24/17 21:50 Glutose 15 PO PRN PRN Hypoglycemia Sodium Chloride 1,000 mls @ 60 mls/hr 08/26/17 12:45 08/29/17 05:46 1/2 Normal Saline IV 60 mls/hr .[id number] [facility] Administration Insulin Aspart 1 - 5 unit 08/24/17 21:50 08/27/17 16:06 Novolog SQ 2 unit SS PRN Administration Hyperglycemia Protocol Levothyroxine Sodium 50 mcg 08/18/17 06:30 08/29/17 06:13 Synthroid PO 50 mcg ACB [facility] Administration Lidocaine HCl 21 mg 08/25/17 14:30 08/28/17 17:12 Xylocaine-Mpf 1% Vial IJ Not Given Q24H [facility] Memantine 10 mg 08/16/17 09:00 08/29/17 08:52 Namenda PO 10 mg BID [facility] Administration Midodrine 5 mg 08/18/17 11:00 08/29/17 13:09 Proamatine PO 5 mg 0700,1100,1500 [facility] Administration Pom Janumet 50-500 1 tab 08/26/17 09:45 08/26/17 14:55 PO 1 tab DAILY [facility] Administration Ondansetron HCl 4 mg 08/15/17 19:04 08/23/17 09:42 Zofran IVP 4 mg Q6H PRN Administration Nausea &/or vomiting Polyethylene Glycol 17 gm 08/21/17 09:00 08/29/17 08:52 Miralax PO Not Given DAILY [facility] Senna/Docusate Sodium 1 tab 08/15/17 19:04 08/26/17 09:59 Senna Plus Tablet PO 1 tab BID PRN Administration Constipation Sodium Chloride 10 - 80 ml 08/15/17 15:23 08/26/17 15:57 Iv Flush IVF 10 ml PRN PRN Administration Flushing Sodium Chloride 500 ml 08/15/17 15:35 08/21/17 02:54 Normal Saline IV 500 ml PRN PRN Administration Sodium Chloride 10 ml 08/15/17 19:04 08/24/17 15:09 Iv Flush IV 10 ml PRN PRN Administration Flushing Sodium Chloride 2 spray 08/18/17 18:44 08/29/17 13:09 Deep Sea Nasal Moisturizing [place] EA NOSTRIL Not Given QID [facility] Sodium Phosphate 1 enema 08/22/17 10:00 Fleet Enema [place] PRN PRN Discontinued Medications Generic Name Dose Route Start Last Admin Trade Name Freq PRN Reason Stop Dose Admin Acetaminophen 650 mg 08/15/17 19:04 Tylenol Supp UT Q5H PRN Pain Acetazolamide 500 mg 08/21/17 12:26 08/21/17 14:27 Diamox PO 08/21/17 12:27 500 mg O ONE Administration Amiodarone HCl 100 mg 08/19/17 15:30 08/25/17 08:48 Pacerone PO Not Given DAILY [facility] Amiodarone HCl 150 mg 08/21/17 02:24 08/21/17 02:56 Amiodarone IV 08/21/17 02:25 150 mg O ONE Administration Ceftriaxone Sodium 1 g 08/25/17 14:30 08/26/17 14:56 Rocephin 1 Gm Vial IM Not Given Q24H [facility] Clopidogrel Bisulfate 75 mg 08/16/17 09:00 08/16/17 08:31 Plavix PO 75 mg DAILY [facility] Administration Cyanocobalamin 5,000 mcg 08/16/17 09:00 08/16/17 09:26 Vit. B-12 PO 5,000 mcg DAILY [facility] Administration Cyanocobalamin 0 mcg 08/17/17 09:00 Vit. B-12 PO DAILY [facility] Digoxin 125 mcg 08/17/17 12:00 08/19/17 08:57 Lanoxin PO 125 mcg DAILY [facility] Administration Digoxin 500 mcg 08/21/17 02:24 08/21/17 02:54 Lanoxin IVP 08/21/17 02:25 500 mcg O ONE Administration Diltiazem HCl 10 mg 08/18/17 21:55 08/18/17 22:19 Cardizem 25 Mg Inj IVP 08/18/17 21:56 10 mg O ONE Administration Docusate Sodium 100 mg 08/16/17 09:00 08/27/17 10:26 Colace PO 100 mg DAILY [facility] Administration Furosemide 40 mg 08/18/17 12:16 08/18/17 12:26 Lasix 40 Mg/4 Ml IVP 08/18/17 12:17 40 mg Q6HR ONE Administration Furosemide 40 mg 08/18/17 20:00 08/18/17 20:44 Lasix 40 Mg/4 Ml IVP 08/18/17 20:01 40 mg ONE TIME ONE Administration Furosemide 20 mg 08/19/17 10:19 08/19/17 10:31 Lasix 20 Mg/2 Ml IVP 08/19/17 10:20 20 mg ONCE ONE Administration Furosemide 40 mg 08/19/17 17:00 08/20/17 11:15 Lasix 40 Mg/4 Ml IVP 40 mg Q8HR [facility] Administration Furosemide 40 mg 08/20/17 22:00 08/22/17 07:02 Lasix 40 Mg/4 Ml IVP 40 mg 0600,1400,2200 [facility] Administration Cefepime HCl 1 gm/ Sodium 100 mls @ 200 mls/hr 08/15/17 15:23 08/15/17 16:20 Chloride IV 08/15/17 15:52 Infused O ONE Infusion Sodium Chloride 1,000 mls @ 1,000 mls/hr 08/15/17 15:23 08/15/17 17:07 Normal Saline IV 08/15/17 16:22 Infused .Q1H ONE Infusion Sodium Chloride 1,000 mls @ 100 mls/hr 08/15/17 19:15 08/18/17 11:37 Normal Saline IV Infused .Q10H [facility] Infusion Cefepime HCl 1 gm/ Sodium 100 mls @ 200 mls/hr 08/15/17 21:30 08/18/17 10:03 Chloride IV Infused Q6H [facility] Infusion Sodium Chloride 500 mls @ 500 mls/hr 08/15/17 22:59 08/15/17 23:20 Normal Saline IV 08/15/17 23:58 Not Given .Q1H ONE Cefepime HCl 1 gm/ Sodium 100 mls @ 200 mls/hr 08/18/17 16:00 Chloride IV Q6H [facility] Ceftriaxone Sodium 1 g/ Sodium 100 mls @ 200 mls/hr 08/18/17 14:45 08/24/17 15:42 Chloride IV Infused Q24H [facility] Infusion Diltiazem HCl 125 mg/ Sodium 125 mls @ 5 mls/hr 08/18/17 23:00 08/19/17 13:52 Chloride IV 0 mls/hr .Q24H [facility] Infusion Protocol Amiodarone HCl 450 mg/ Sodium 250 mls @ 33.33 mls/hr 08/19/17 12:00 08/19/17 18:00 Chloride IV 08/19/17 18:00 0.99 mg/min .Q7H31M [facility] 33.33 mls/hr 1 MG/MIN Infusion Amiodarone HCl 900 mg/ Sodium 500 mls @ 16.66 mls/hr 08/19/17 18:00 Chloride IV .Q24H [facility] 0.5 MG/MIN Amiodarone HCl 150 mg/ Sodium 103 mls @ 618 mls/hr 08/19/17 11:57 08/19/17 12 :52 Chloride IV 08/19/17 12:06 Infused O ONE Infusion Potassium Chloride 10 meq in 100 mls @ 100 mls/hr 08/20/17 05:37 08/20/17 08: 07 Potassium Chloride Premix IV 08/20/17 06:36 Infused O ONE Infusion Lidocaine HCl 10 mg/ Potassium 100 mls @ 50 mls/hr 08/20/17 10:30 08/20/17 19 :55 Chloride 10 meq/ Sodium IV 08/20/17 18:57 Infused Chloride .Q2H [facility] Infusion Sodium Chloride 1,000 mls @ 75 mls/hr 08/24/17 15:45 08/25/17 05:40 1/2 Normal Saline IV 08/25/17 05:04 Infused .[id number] [facility] Infusion Sodium Chloride 1,000 mls @ 250 mls/hr 08/25/17 08:45 08/25/17 09:40 Normal Saline IV 08/25/17 09:44 Not Given .Q4H [facility] Ceftriaxone Sodium 1 g/ Sodium 100 mls @ 200 mls/hr 08/26/17 16:15 08/28/17 17:12 Chloride IV Not Given Q24H [facility] Levothyroxine Sodium 50 mcg 08/16/17 06:30 08/17/17 05:58 Synthroid PO 50 mcg ACB [facility] Administration Lidocaine HCl 2.1 mg 08/25/17 14:30 Xylocaine-Mpf 1% Vial IJ Q24H [facility] Metoprolol Tartrate 25 mg 08/17/17 03:29 08/17/17 03:59 Lopressor PO 25 mg Q6H PRN Administration Midodrine 5 mg 08/15/17 21:00 08/17/17 08:59 Proamatine PO 5 mg TID [facility] Administration Midodrine 5 mg 08/17/17 09:00 08/18/17 09:28 Proamatine PO 08/18/17 10:00 5 mg TID [facility] Administration Non-Formulary Medication 5,000 mcg 08/16/17 09:00 Cyanocobalamin (Vitamin B-12) [B-12] SL DAILY [facility] Non-Formulary Medication 28 mg 08/16/17 09:00 Memantine Hcl [Namenda Xr] PO DAILY [facility] Non-Formulary Medication 1 tab 08/15/17 21:00 Sitagliptin Phos/Metformin Hcl [Janumet 50-500 Mg Tablet] PO BID [facility] Pharmacy Consult 1 each 08/21/17 22:40 Pharmacy Consult - Fall Risk 08/21/17 22:41 ONE TIME ONE Potassium Chloride 40 meq 08/19/17 15:36 K-Dur 20 Meq Tablet PO 08/19/17 15:37 O ONE Potassium Chloride 40 meq 08/20/17 05:37 08/20/17 05:44 K-Dur 20 Meq Tablet PO 08/20/17 05:38 40 meq O ONE Administration Potassium Chloride 20 meq 08/20/17 17:30 08/22/17 12:14 K-Dur 20 Meq Tablet PO 20 meq TIDWM [facility] Administration - Urinary Catheter Management Urethral Cath placed during this visit: no Results 08/29/17 04:16 08/29/17 04:16 CBC 08/29/17 Range/Units 04:16 WBC 9.0 (4.5-11.0) T/MM3 RBC 3.51 L (4.00-5.20) M/MM3 Hgb 10.8 L (12-16) GM/DL Hct 33.9 L (36-46) % Plt Count 340 (130-400) T/MM3 Neut # (Auto) 5.7 (1.8-7.7) T/MM3 Lymph # (Auto) 1.9 (1-4.8) T/MM3 Coke # (Auto) 0.8 (0-0.8) T/MM3 Eos # (Auto) 0.5 (0-0.5) T/MM3 Baso # (Auto) 0.1 (0-0.2) T/MM3 Comprehensive Metabolic Panel 08/29/17 Range/Units 04:16 Sodium 143 (134-144) MEQ/L Potassium 4.2 (3.6-5) MEQ/L Chloride 105 (98-107) MEQ/L Carbon Dioxide 28 (22-30) MEQ/L BUN 13.0 (7-17) MG/DL Creatinine 0.7 (0.7-1.2) mg/dL Glucose 113 H (65-110) MG/DL Calcium 9.0 (8.4-10.2) MG/DL Albumin 3.0 L (3.5-5.0) g/dL Intake and Output 08/28/17 08/29/17 08/29/17 22:59 06:59 14:59 Intake Total 956 / 956 Output Total 875 / 875 900 / 900 Balance -875 / -875 56 / 56 Intake: IV 956 / 956 1/2 Ns 1,000 ml @ 60 mls/hr IV 956 / 956 .[id number] [facility] Rx#:[id number] Output: Urine Amount (Catheter) 875 / 875 900 / 900 Other: Urine Appearance Clear Clear Urine Color Pale Yellow Yellow Urine Odor Normal Stool Color Brown Brown Yellow Stool Consistency Soft Loose Size of Bowel Movement Small Moderate # Incontinent Bowel Movements 1 Weight 61.8 kg Patient Weight 08/30/17 06:59 Weight 61.8 kg Assessment and Plan - Assessment and Plan (1) Atrial fibrillation with RVR Current visit: Yes Status: Acute (2) Atherosclerotic heart disease of [place] coronary artery without angina pectoris Current visit: Yes Status: Chronic (3) Nonrheumatic aortic valve stenosis Current visit: Yes Status: Chronic (4) Syncope and collapse Current visit: Yes Status: Chronic (5) Hypotension Current visit: Yes Status: Chronic (6) Type 2 diabetes mellitus without complications Current visit: Yes Status: Chronic (7) Diastolic CHF Current visit: Yes Status: Acute - Attestation Attestation Narrative: 08/29/17 13:28 Recommendation After examining the patient I agree with the above assessment. I am involved in the formulation of the patient's plan of care. Hospital Course Summary Disclaimer: The visit summary below is not to be considered part of the above Progress Note.
[2017-08-25] MEDS: INSULIN ASPART 100unit/ml INJECTION SQ PRN ×2 (15:58→21:24)
--- NOTE | 2017-08-25 17:09 | CT Scan Report ---
EXAM: CT head/brain wo con HISTORY: altered level of conciousness COMPARISON: Prior examination dated 05/05/[address] scan is performed without intravenous contrast administration. The current CT scan was performed using radiation dose-reduction techniques. There is diffuse cortical atrophy. There is proportionate prominence of the ventricles. The ventricles are midline without evidence of mass effect or shift. There is normal anne-white matter differentiation. There is no evidence of acute intracranial hemorrhage or acute transcortical infarct. Again visualized is the encephalomalacia in the right MCA territory and right CREW SCHEDULER territory the site of the prior ischemic insults. There is also an old ischemic insult in the left superior parietal lobe. There is diffuse periventricular white matter hypoattenuation likely reflecting chronic small vessel ischemic change. No extra-axial masses or fluid collections are seen. The bony calvarium appears intact and the visualized portions of the paranasal sinuses and mastoid air cells are clear. IMPRESSION: 1. No CT evidence of acute intracranial process. 2. Diffuse cortical atrophy and diffuse periventricular mild matter chronic small vessel ischemic change. 3. Old bilateral ischemic insults. .
[2017-08-26] MEDS: LEVOTHYROXINE 50 MCG TABLET PO SCH (06:07)
[2017-08-26] MEDS: MIDODRINE 5 MG TABLET PO SCH ×3 (06:08→16:12)
[2017-08-26] MEDS: INSULIN ASPART 100unit/ml INJECTION SQ PRN ×3 (06:24→16:18)
[2017-08-26] MEDS ORDERED: JANUMET PO SCH (09:45)
[2017-08-26] MEDS: CLOPIDOGREL 75 MG TABLET PO SCH (09:59)
[2017-08-26] MEDS: AMIODARONE 200 MG TABLET PO SCH (09:59)
[2017-08-26] MEDS: ASPIRIN *EC* 81 MG TABLET PO SCH (09:59)
[2017-08-26] MEDS: SENNA + DOCUSATE TABLET PO PRN (09:59)
[2017-08-26] MEDS: MEMANTINE 10 MG TABLET PO SCH ×2 (10:00→20:23)
[2017-08-26] MEDS: POLYETHYL GLYCOL 3350 17gm PACKET PO SCH ×2 (10:00→12:18)
[2017-08-26] MEDS: ENOXAPARIN 40 MG/0.4 ML INJECTION SQ SCH (10:00)
[2017-08-26] MEDS: DOCUSATE SODIUM 100 MG CAPSULE PO SCH (10:01)
--- NOTE | 2017-08-26 11:42 | Progress Note ---
- Date 08/26/17 Subjective: Patient is seen in f-u of sepsis secondary to UTI. She has been in and out of a fib. Has now been in NSR since 8 am yesterday. She is minimally responsive. Woke up to tell me to "stop bothering me!" when I was doing an abdominal exam. When asked if she has pain she says yes but will not answer where her pain is. Hasn't eaten any breakfast at time of visit. Daughter hasn't been in to visit yet this morning. Nurses report pt has been mostly sleeping and responds minimally. Objective Vital signs: Temperature 96.7 F L 08/26/17 08:53 Pulse Rate 72 08/26/17 09:00 Respiratory Rate 16 08/26/17 08:53 Blood Pressure 111/59 08/26/17 08:53 Pulse Oximetry 95 08/26/17 08:53 Height/Weight/BMI: Height 1.65 m Weight 60.9 kg Body Mass Index 25.2 - Constitutional Present: no acute distress, well nourished, well developed - Routine HEENT Exam Head: Present: normocephalic, atraumatic - Routine Respiratory Exam Present: CTA bilaterally. Absent: wheezes - Routine Cardiovascular Exam Present: RRR, murmur - Routine Abdominal Exam Present: soft, non distended - Routine Extremities Exam Present: no edema, normal capillary refill - Routine Skin Exam Present: dry, warm - Routine Neurological Exam Absent: alert, oriented X3 - Routine Lymphatic Exam Lymphatic: Absent: adenopathy - Routine Psychiatric Exam Present: unable to assess Results - Labs CBC & Chem 7: 08/26/17 04:55 08/26/17 04:55 Microbiology Results: Microbiology 08/25/17 15:20 Urine, Cath Ramirez Urine Culture - Preliminary Early growth - ABG Interpretation ABG results: 08/25/17 12:01 ABG pH 7.431 ABG pCO2 46 H ABG pO2 71.4 L ABG HCO3 30.9 H ABG Total CO2 32.3 H ABG O2 Saturation 94.4 L ABG Base Excess 5.8 H Assessment and Plan (1) Recurrent UTI Problem details: failed outpt therapy; recurrent Current visit: No Status: Resolved (2) Sepsis Current visit: Yes Status: Acute Assessment and Plan: Assessment Sepsis secondary to UTI as indicated by tachycardia, fever, altered level of consciousness and hypotension. UTI - Recurrent, frequent -- E coli growing from culture 08/14/17 Chronic urinary retention--Indwelling Ramirez - since 02/2017 - changed 08/15/17. Encephalopathy -secondary to sepsis and UTI Pulmonary edema Bilateral pleural effusions - 08/18/17 Acute hypoxic respiratory insufficiency secondary to pulmonary edema Hypernatremia (not POA) Hypokalemia (not POA) Generalized weakness and debility - Acute due to illness Paroxysmal atrial fibrillation Developed RVR 08/18 S/P Cardioversion on 08/19 A-fib 08/25 Severe aortic stenosis Orthostatic hypotension Diabetes mellitus, type 2 CAD H/O Chronic kidney disease, stage III. Hypothyroidism Dementia Chronic constipation Osteoarthritis Hx DVT Hx CVA- 2011 Obstipation Plan Continues to be somnolent, confused. Poor intake. Persistent hypernatremia. Daughter ok with placing midline and starting IVF's. Has remained in NSR since 8am yesterday. UA, performed yesterday d/t somnolence and questionable abdominal pain, + for leuks and bacteria. Urine culture pending. Rocephin day #9 for E. coli UTI. DVT Prophylaxis: Lovenox Resuscitation Status: Do Not Resuscitate - Physician Narrative Physician: Jolene Box MD Narrative: Date: 08/26/17 Time: 1400 I have independently evaluated and examined this patient. I reviewed the chart, the patient's history, and the SENIOR ENVIRONMENTAL ENGINEER/PA's documented findings as above. We discussed and formulated the assessment and plan as above with additions as below: Mrs. La was napping when seen; she reported she was a little bit hungry but did not want to eat any of the breakfast tray that was present while I was visiting. Patient awoke easily but return to napping as soon as she was not actively stimulated. Respirations nonlabored, cardiac rhythm regular Abdomen soft but mild generalized tenderness to palpation. Oral intake remains poor-agree with need for IV fluids Urine culture pending-may require change in antibiotics given for persistent somnolence Telemetry strips reviewed by myself-atrial fibrillation with good rate control again noted yesterday evening but has returned to sinus rhythm. Amiodarone increased to 200 mg daily per cardiology yesterday. Hospital Course Summary Disclaimer: The visit summary below is not to be considered part of the above Progress Note. Hospital Course: 08/15/17 Admit to [facility] [place] status under the care of Dr. Martinez. 1L NS initiated in ED. Will continue NS 100cc/hr for hydration. Cefepime 1g IV given in ED. Continue empiric coverage for urinary pathogens with Cefepime IV Q6H. UA culture from 08/14/17 revealing gram negative rods. Monitor for sensitives and new UA culture results. Blood culture obtained and results pending. Monitor closely on telemetry. Continue home medications. Monitor blood pressure closely. Monitor daily weight and urinary output closely for signs of fluid overload. Renal function stable. Upon discharge, patient's care will be returned to Dr Caballero. Patient is a DNR. 08/17/17 Sepsis secondary to UTI as indicated by tachycardia, fever, altered level of consciousness and hypotension. -IVF -Repeat lactate-normalized -Mental status improving UTI -Recurrent, frequent -Indwelling Ramirez- since 02/2017 - changed 08/15/17. -On cefepime -Bl cx NGTD -Urine cx from 08/15 NGTD, the one done on 08/14 growing E. coli sensitive to cefepime Altered level of consciousness. -This is usual for her when she gets an UTI per daughter -She does have underlying dementia -This is improved today Generalized weakness and debility. -Due to UTI -consult PT PAF -Not on OAC -Metoprolol 25mg q6hr prn started by nighttime MD -With her hypotension, she may not tolerate this. -Will try low dose digoxin and monitor History of CVA - 2011. -On aspirin and Plavix Dementia. -On Namenda XR Hypothyroid -continue levothyroxine -Last free T4 1.84 in November 2016 Severe aortic stenosis. -SKYE 0.7cm2 per 08/2016 Orthostatic hypotension -Continue midodrine History of DVT to left arm. -S/P Mechanical clot removal Diabetes mellitus, type 2. -Continue Janumet -Last A1C I can find was in november 2016 and was 5.3% Constipation. -On Colace daily H/O Chronic kidney disease, stage III. -Creatinine normal here and I do not see any elevations in recent history CAD -H/O stents 2016 -HC 08/2016 showing LVEF 65%, SKYE 0.7cm2, 70-80% LAD, 30% LCx, 70-75% RCA -CHRIS to RCA 09/2016 -CHRIS to LAD 01/2017 Hypothyroidism. -Continue levothyroxine Osteoarthritis. 08/18/17 Oxygen needs continue to increase. Chest X-ray this morning does revel small bilateral pleural effusions and pulmonary edema. Lasix 40 mg IV x1 given this morning, will give repeat 40mg IV Lasix this evening. IVF stopped. Continue to monitor urinary output via Ramirez cath (chronic- changed 08/15) Trend daily weights. she is up 5 Kg from admission Change cefepime for ceftriaxone for treatment of Ecoli UTI. Continue to monitor Accu-Cheks Recheck CBC in am due to UTI/Resolving sepsis. Will recheck BMP in am secondary to Lasix use. Lovenox subcutaneous daily for DVT prophylaxis 08/19/17 Transferred to CCU overnight secondary to Afib with RVR, diltiazem drip started. HR showing improvement. Will consult with Dr Vanessa for treatment recommendations for afib. Digoxin level slightly subtherapeutic at 0.7 - could be increased. Will continue with Rocephin for urinary coverage. Lasix 20mg IV x1 to help mobilize pulmonary edema. Will recheck CXR in am. Weight trending down. Output increased with Lasix yesterday. Continue with supplemental O2, weaning as able. Encourage oral intake. 08/20/17 Will start KCL bolus at 50cc/hr as potassium with significant decrease due to Lasix. Weight with decreased. CXR without change, but O2 sats improved with less O2 flow (3L). Continue ceftriaxone for urinary coverage. Encouraging that oral drive increasing. Likely transfer to medical floor later today. Will have PT/OT restart work tomorrow. 08/21/17 CXR showing gradual improvement. O2 needs decreasing (down to 2L, and weaning). Creatinine stable. Potassium improved to 3.7. Will decrease IV Lasix to 40mg twice a day - worry for overdiuresis with patients decreased oral drive. Diamox 500mg x1 as CO2 increasing. Encourage oral intake. Encourage activities with therapy. Will continue Rocephin for urinary coverage. 08/22/17 Continued improvement in CXR and O2 need. Patient still somnolent. Nursing working on increasing bowel motivation. Weight with decrease and creatinine increased to 1.3 -- will stop IV Lasix. Continue Rocephin. Encourage activities and therapy. 08/23/17 Patient still somnolent. Leukocytosis increasing 9.8-->11.9-->13.1 despite continuation of ceftriaxone for UTI (+ sensitivity for ceftriaxone on C&S). Check CXR. Remains in NSR at this time. Continues amiodarone . Cardiology following. Patient with minimal intake. Is on fluid restriction d/t recent fluid overload , but pt isn't taking much po. May consider IVF's if she isn't taking more p.o. 08/24/17 Patient remains somnolent but oral intake is improved today and she is acknowledging examiner also improved from yesterday. Will attempt to get patient up in chair today; PT/OT can attempt ambulation tomorrow. Leukocytosis improved today-may have aspirated with emesis 2 days ago but no indication of aspiration pneumonitis by x-ray. Day 7 ceftriaxone for UTI. Sodium up to 147, BUN up further today. Conjunction with poor oral intake and laboratory signs of dehydration will hydrate with 1 L 1/2 NS. Remains in sinus rhythm by my review of telemetry and exam. Persistent encephalopathy-increase activity as tolerates. Avoid sedating medications. Continue vitamin B 12-will resume oral administration at discharge. Blood sugars stable; blood pressure borderline low-reassess after fluids. 08/25/17 Somnolent, confused. Poor intake with supper last night. Persistent hypernatremia with mild improvement. BUN also improved. Tele reviewed - shows A-fib with normal rate. She went into a-fib around 0500. Hypotension with BP 87/59, UO overall poor over the last few days - give NS 250 mL bolus. CXR from 08/23 reviewed - pulm edema noted; will need to monitor resp status/sats closely. Rocephin day #8 for E. coli UTI. Repeat UC from 08/15 was neg. 08/26/17 Continues to be somnolent, confused. Poor intake. Persistent hypernatremia. Daughter ok with placing midline and starting IVF's. Has remained in NSR since 8am yesterday. UA, performed yesterday d/t somnolence and questionable abdominal pain, + for leuks and bacteria. Urine culture pending. Rocephin day #9 for E. coli UTI.
[2017-08-26] MEDS: CEFTRIAXONE 1 G INJECTION IM SCH (14:56)
[2017-08-26] MEDS: SALINE 0.65% NASAL SPRAY 44 ML BOTTLE EA NOSTRIL SCH ×4 (14:56→20:33)
--- NOTE | 2017-08-26 14:57 | Cardiology Progress Note ---
<Sandra Guevara M - Last Filed: 08/27/17 13:07> Subjective Principal diagnosis: AFib RVR Interval history: Margarita is seen in follow up for AFib with RVR. She is seen in her room on Medical , she is being transferred to bed by PT per lift. She has intermittent atrial fibrillation on telemetry but she is asymptomatic and denies chest pain or cardiac complaints. Exam Vital signs: Temperature 96.7 F L 08/26/17 08:53 Pulse Rate 72 08/26/17 09:00 Respiratory Rate 16 08/26/17 08:53 Blood Pressure 111/59 08/26/17 08:53 Pulse Oximetry 95 08/26/17 08:53 Inpatient Medications: Generic Name Dose Route Start Last Admin Trade Name Freq PRN Reason Stop Dose Admin Acetaminophen 650 mg 08/15/17 19:04 08/22/17 08:28 Tylenol PO 650 mg Q5H PRN Administration Discomfort Amiodarone HCl 200 mg 08/26/17 09:00 08/26/17 09:59 Pacerone PO 200 mg DAILY PAOLA Administration Aspirin 81 mg 08/16/17 09:00 08/26/17 09:59 Ecotrin PO 81 mg DAILY PAOLA Administration Bisacodyl 10 mg 08/22/17 17:05 Dulcolax RECTALLY DAILY PRN Constipation Ceftriaxone Sodium 1 g 08/25/17 14:30 08/25/17 15:47 Rocephin 1 Gm Vial IM 1 g Q24H PAOLA Administration Clopidogrel Bisulfate 75 mg 08/17/17 09:00 08/26/17 09:59 Plavix PO 75 mg DAILY PAOLA Administration Cyanocobalamin 1,000 mcg 08/17/17 09:00 08/24/17 08:59 Vit. B-12 IM 1,000 mcg Abarca PAOLA Administration Dextrose 10 ml 08/24/17 21:50 D50%W IVP PRN PRN Hypoglycemia Docusate Sodium 100 mg 08/16/17 09:00 08/26/17 10:01 Colace PO 100 mg DAILY PAOLA Administration Enoxaparin Sodium 40 mg 08/17/17 04:00 08/26/17 10:00 Lovenox SQ 40 mg DAILY PAOLA Administration Glucose 37.5 gm 08/24/17 21:50 Glutose 15 PO PRN PRN Hypoglycemia Ceftriaxone Sodium 1 g/ Sodium 100 mls @ 200 mls/hr 08/18/17 14:45 08/24/17 15:42 Chloride IV Infused Q24H PAOLA Infusion Sodium Chloride 1,000 mls @ 100 mls/hr 08/26/17 12:45 1/2 Normal Saline IV .Q10H PAOLA Insulin Aspart 1 - 5 unit 08/24/17 21:50 08/26/17 12:03 Novolog SQ 1 unit SS PRN Administration Hyperglycemia Protocol Levothyroxine Sodium 50 mcg 08/18/17 06:30 08/26/17 06:07 Synthroid PO 50 mcg ACB PAOLA Administration Lidocaine HCl 21 mg 08/25/17 14:30 08/25/17 15:48 Xylocaine-Mpf 1% Vial IJ 21 mg Q24H PAOLA Administration Memantine 10 mg 08/16/17 09:00 08/26/17 10:00 Namenda PO 10 mg BID PAOLA Administration Midodrine 5 mg 08/18/17 11:00 08/26/17 13:18 Proamatine PO 5 mg 0700,1100,1500 PAOLA Administration Pom Janumet 50-500 1 tab 08/26/17 09:45 PO DAILY PAOLA Ondansetron HCl 4 mg 08/15/17 19:04 08/23/17 09:42 Zofran IVP 4 mg Q6H PRN Administration Nausea &/or vomiting Polyethylene Glycol 17 gm 08/21/17 09:00 08/26/17 12:18 Miralax PO Not Given DAILY PAOLA Senna/Docusate Sodium 1 tab 08/15/17 19:04 08/26/17 09:59 Senna Plus Tablet PO 1 tab BID PRN Administration Constipation Sodium Chloride 10 - 80 ml 08/15/17 15:23 08/23/17 16:50 Iv Flush IVF 10 ml PRN PRN Administration Flushing Sodium Chloride 500 ml 08/15/17 15:35 08/21/17 02:54 Normal Saline IV 500 ml PRN PRN Administration Sodium Chloride 10 ml 08/15/17 19:04 08/24/17 15:09 Iv Flush IV 10 ml PRN PRN Administration Flushing Sodium Chloride 2 spray 08/18/17 18:44 08/25/17 21:00 Deep Sea Nasal Moisturizing [place] EA NOSTRIL 2 spray QID PAOLA Administration Sodium Phosphate 1 enema 08/22/17 10:00 Fleet Enema LA PRN PRN Discontinued Medications Generic Name Dose Route Start Last Admin Trade Name Freq PRN Reason Stop Dose Admin Acetaminophen 650 mg 08/15/17 19:04 Tylenol Supp LA Q5H PRN Pain Acetazolamide 500 mg 08/21/17 12:26 08/21/17 14:27 Diamox PO 08/21/17 12:27 500 mg O ONE Administration Amiodarone HCl 100 mg 08/19/17 15:30 08/25/17 08:48 Pacerone PO Not Given DAILY PAOLA Amiodarone HCl 150 mg 08/21/17 02:24 08/21/17 02:56 Amiodarone IV 08/21/17 02:25 150 mg O ONE Administration Clopidogrel Bisulfate 75 mg 08/16/17 09:00 08/16/17 08:31 Plavix PO 75 mg DAILY PAOLA Administration Cyanocobalamin 5,000 mcg 08/16/17 09:00 08/16/17 09:26 Vit. B-12 PO 5,000 mcg DAILY PAOLA Administration Cyanocobalamin 0 mcg 08/17/17 09:00 Vit. B-12 PO DAILY PAOLA Digoxin 125 mcg 08/17/17 12:00 08/19/17 08:57 Lanoxin PO 125 mcg DAILY PAOLA Administration Digoxin 500 mcg 08/21/17 02:24 08/21/17 02:54 Lanoxin IVP 08/21/17 02:25 500 mcg O ONE Administration Diltiazem HCl 10 mg 08/18/17 21:55 08/18/17 22:19 Cardizem 25 Mg Inj IVP 08/18/17 21:56 10 mg O ONE Administration Furosemide 40 mg 08/18/17 12:16 08/18/17 12:26 Lasix 40 Mg/4 Ml IVP 08/18/17 12:17 40 mg Q6HR ONE Administration Furosemide 40 mg 08/18/17 20:00 08/18/17 20:44 Lasix 40 Mg/4 Ml IVP 08/18/17 20:01 40 mg ONE TIME ONE Administration Furosemide 20 mg 08/19/17 10:19 08/19/17 10:31 Lasix 20 Mg/2 Ml IVP 08/19/17 10:20 20 mg ONCE ONE Administration Furosemide 40 mg 08/19/17 17:00 08/20/17 11:15 Lasix 40 Mg/4 Ml IVP 40 mg Q8HR PAOLA Administration Furosemide 40 mg 08/20/17 22:00 08/22/17 07:02 Lasix 40 Mg/4 Ml IVP 40 mg 0600,1400,2200 PAOLA Administration Cefepime HCl 1 gm/ Sodium 100 mls @ 200 mls/hr 08/15/17 15:23 08/15/17 16:20 Chloride IV 08/15/17 15:52 Infused O ONE Infusion Sodium Chloride 1,000 mls @ 1,000 mls/hr 08/15/17 15:23 08/15/17 17:07 Normal Saline IV 08/15/17 16:22 Infused .Q1H ONE Infusion Sodium Chloride 1,000 mls @ 100 mls/hr 08/15/17 19:15 08/18/17 11:37 Normal Saline IV Infused .Q10H PAOLA Infusion Cefepime HCl 1 gm/ Sodium 100 mls @ 200 mls/hr 08/15/17 21:30 08/18/17 10:03 Chloride IV Infused Q6H PAOLA Infusion Sodium Chloride 500 mls @ 500 mls/hr 08/15/17 22:59 08/15/17 23:20 Normal Saline IV 08/15/17 23:58 Not Given .Q1H ONE Cefepime HCl 1 gm/ Sodium 100 mls @ 200 mls/hr 08/18/17 16:00 Chloride IV Q6H PAOLA Diltiazem HCl 125 mg/ Sodium 125 mls @ 5 mls/hr 08/18/17 23:00 08/19/17 13:52 Chloride IV 0 mls/hr .Q24H PAOLA Infusion Protocol Amiodarone HCl 450 mg/ Sodium 250 mls @ 33.33 mls/hr 08/19/17 12:00 08/19/17 18:00 Chloride IV 08/19/17 18:00 0.99 mg/min .Q7H31M PAOLA 33.33 mls/hr 1 MG/MIN Infusion Amiodarone HCl 900 mg/ Sodium 500 mls @ 16.66 mls/hr 08/19/17 18:00 Chloride IV .Q24H PAOLA 0.5 MG/MIN Amiodarone HCl 150 mg/ Sodium 103 mls @ 618 mls/hr 08/19/17 11:57 08/19/17 12 :52 Chloride IV 08/19/17 12:06 Infused O ONE Infusion Potassium Chloride 10 meq in 100 mls @ 100 mls/hr 08/20/17 05:37 08/20/17 08: 07 Potassium Chloride Premix IV 08/20/17 06:36 Infused O ONE Infusion Lidocaine HCl 10 mg/ Potassium 100 mls @ 50 mls/hr 08/20/17 10:30 08/20/17 19 :55 Chloride 10 meq/ Sodium IV 08/20/17 18:57 Infused Chloride .Q2H PAOLA Infusion Sodium Chloride 1,000 mls @ 75 mls/hr 08/24/17 15:45 08/25/17 05:40 1/2 Normal Saline IV 08/25/17 05:04 Infused .[id number] PAOLA Infusion Sodium Chloride 1,000 mls @ 250 mls/hr 08/25/17 08:45 08/25/17 09:40 Normal Saline IV 08/25/17 09:44 Not Given .Q4H PAOLA Levothyroxine Sodium 50 mcg 08/16/17 06:30 08/17/17 05:58 Synthroid PO 50 mcg ACB PAOLA Administration Lidocaine HCl 2.1 mg 08/25/17 14:30 Xylocaine-Mpf 1% Vial IJ Q24H PAOLA Metoprolol Tartrate 25 mg 08/17/17 03:29 08/17/17 03:59 Lopressor PO 25 mg Q6H PRN Administration Midodrine 5 mg 08/15/17 21:00 08/17/17 08:59 Proamatine PO 5 mg TID PAOLA Administration Midodrine 5 mg 08/17/17 09:00 08/18/17 09:28 Proamatine PO 08/18/17 10:00 5 mg TID PAOLA Administration Non-Formulary Medication 5,000 mcg 08/16/17 09:00 Cyanocobalamin (Vitamin B-12) [B-12] SL DAILY PAOLA Non-Formulary Medication 28 mg 08/16/17 09:00 Memantine Hcl [Namenda Xr] PO DAILY PAOLA Non-Formulary Medication 1 tab 08/15/17 21:00 Sitagliptin Phos/Metformin Hcl [Janumet 50-500 Mg Tablet] PO BID PAOLA Pharmacy Consult 1 each 08/21/17 22:40 Pharmacy Consult - Fall Risk 08/21/17 22:41 ONE TIME ONE Potassium Chloride 40 meq 08/19/17 15:36 K-Dur 20 Meq Tablet PO 08/19/17 15:37 O ONE Potassium Chloride 40 meq 08/20/17 05:37 08/20/17 05:44 K-Dur 20 Meq Tablet PO 08/20/17 05:38 40 meq O ONE Administration Potassium Chloride 20 meq 08/20/17 17:30 08/22/17 12:14 K-Dur 20 Meq Tablet PO 20 meq TIDWM PAOLA Administration - Constitutional no acute distress, well nourished, somnolent - Routine HEENT Exam Head: Present: normocephalic ENT: Present: mucous membranes moist - Routine Neck Exam Absent: JVD, carotid bruit - Routine Chest/Breast/Axilla Exam Chest wall: Absent: tenderness - Routine Respiratory Exam Present: decreased breath sounds. Absent: dyspnea - Routine Cardiovascular Exam Present: RRR, murmur (II/) - Routine Abdominal Exam Present: soft, normoactive bowel sounds - Routine Extremities Exam Present: edema - Routine Skin Exam Present: intact, dry, warm - Routine Psychiatric Exam Present: unable to assess - Urinary Catheter Management Urethral Cath placed during this visit: yes, but has since been removed by the nurse Insertion date: 08/21/17 Insertion time: 12:30 Removal date: 08/21/17 Removal time: 12:00 Results 08/26/17 04:55 08/26/17 04:55 CBC 08/26/17 Range/Units 04:55 WBC 9.3 (4.5-11.0) T/MM3 RBC 3.35 L (4.00-5.20) M/MM3 Hgb 10.2 L (12-16) GM/DL Hct 32.5 L (36-46) % Plt Count 384 (130-400) T/MM3 Neut # (Auto) 6.0 (1.8-7.7) T/MM3 Lymph # (Auto) 1.8 (1-4.8) T/MM3 [place] # (Auto) 0.8 (0-0.8) T/MM3 Eos # (Auto) 0.6 H (0-0.5) T/MM3 Baso # (Auto) 0.0 (0-0.2) T/MM3 Comprehensive Metabolic Panel 08/26/17 Range/Units 04:55 Sodium 145 H (134-144) MEQ/L Potassium 4.1 (3.6-5) MEQ/L Chloride 105 (98-107) MEQ/L Carbon Dioxide 29 (22-30) MEQ/L BUN 43.0 H (7-17) MG/DL Creatinine 0.8 (0.7-1.2) mg/dL Glucose 157 H (65-110) MG/DL Calcium 9.3 (8.4-10.2) MG/DL Intake and Output 08/25/17 08/26/17 08/26/17 22:59 06:59 14:59 Intake Total 120 / 120 Output Total 150 / 150 75 / 75 100 / 100 Balance -150 / -150 -75 / -75 20 / 20 Intake: Oral 120 / 120 Output: Urine Amount (Catheter) 150 / 150 75 / 75 100 / 100 Other: Urine Appearance Cloudy Cloudy Clear Sediment Urine Color Light [place] Dark Yellow Dark Yellow Urine Odor Normal Weight 134 lb 4.184 oz Patient Weight 08/27/17 06:59 Weight 134 lb 4.184 oz Assessment and Plan - Assessment and Plan (1) Atrial fibrillation with RVR Current visit: Yes Status: Acute (2) Atherosclerotic heart disease of [place] coronary artery without angina pectoris Current visit: Yes Status: Chronic (3) Nonrheumatic aortic valve stenosis Current visit: Yes Status: Chronic (4) Syncope and collapse Current visit: Yes Status: Chronic (5) Hypotension Current visit: Yes Status: Chronic (6) Type 2 diabetes mellitus without complications Current visit: Yes Status: Chronic (7) Diastolic CHF Current visit: Yes Status: Acute - Assessment and Plan 08/19/17 A Fib with RVR: History of PAF, asymptomatic - Takes Amiodarone 100mg daily, not given this admission - Amiodarone bolus and drip - Npo for possible DCCV - Converted to SR - Resume home Amiodarone 100mg PO daily and stop IV - EKG now - Stop Digoxin. - Check TSh and Mag DCHF: Diurese with Lasix 40mg IV q8h - CXR: Diffuse airspace opacities throughout both lungs. Probable small bilateral pleural effusions. Close interval follow-up is recommended. - K+ 3.3, replace CAD: Stable. continue current therapy, routine monitoring. - Continue Aspirin and Plavix Hypotension: Continue Midodrine Thank you for allowing us to participate in the care of this patient. 08/20/17 AFib:Continue home dose Amiodarone 100mg daily - Not a candidate for half-way anticoagulation due to age and fall risk DCHF: Diuresing well. - CXR: No significant change in diffuse bilateral airspace disease which could represent edema, pneumonia, massive aspiration or pulmonary hemorrhage. - Continue Lasix 40mg IV q8h - K+ 2.9, Replace K+ 20meq po with meals TID - TSH, Mag WNL - Monitor renal and electrolytes 08/21/17 Went back into AFib overnight. - Given 150mg IV Amiodarone bolus and Digoxin 500mcg - Converted back this afternoon to SR - Continue Amiodarone at 100mg daily CXR: Overall slight improvement in appearance of the chest may be due to resolving edema. - Continue diuresis - Monitor renal and electrolytes 08/22/17 BUN/SCr 39/ 1.3, NA 145 today, K+ 4.2 - Diuretic stopped by attending - Stop K+ replacement CXR: Impression: Continued improvement in pulmonary edema. 08/25/17 Accurate I & O please, need to watch fluid balance closely with patient's and history of hypotension. - Monitor renal and electrolytes - CXR 08/23/17: Stable to slightly improved appearance of the lungs. 08/26/17 Increased Amiodarone to 200mg daily for better control of PAF Hospital Course Summary Disclaimer: The visit summary below is not to be considered part of the above Progress Note. Hospital Course: [facility]. 1L NS initiated in ED. Will continue NS 100cc/hr for hydration. Cefepime 1g IV given in ED. Continue empiric coverage for urinary pathogens with Cefepime IV Q6H. UA culture from 08/14/17 revealing gram negative rods. Monitor for sensitives and new UA culture results. Blood culture obtained and results pending. Monitor closely on telemetry. Continue home medications. Monitor blood pressure closely. Monitor daily weight and urinary output closely for signs of fluid overload. Renal function stable. Upon discharge, patient's care will be returned to Dr Caballero. Patient is a DNR. 08/17/17 Sepsis secondary to UTI as indicated by tachycardia, fever, altered level of consciousness and hypotension. -IVF -Repeat lactate-normalized -Mental status improving UTI -Recurrent, frequent -Indwelling Ramirez- since 02/2017 - changed 08/15/17. -On cefepime -Bl cx NGTD -Urine cx from 08/15 NGTD, the one done on 08/14 growing E. coli sensitive to cefepime Altered level of consciousness. -This is usual for her when she gets an UTI per daughter -She does have underlying dementia -This is improved today Generalized weakness and debility. -Due to UTI -consult PT PAF -Not on OAC -Metoprolol 25mg q6hr prn started by nighttime MD -With her hypotension, she may not tolerate this. -Will try low dose digoxin and monitor History of CVA - 2011. -On aspirin and Plavix Dementia. -On Namenda XR Hypothyroid -continue levothyroxine -Last free T4 1.84 in November 2016 Severe aortic stenosis. -SKYE 0.7cm2 per HC 08/2016 Orthostatic hypotension -Continue midodrine History of DVT to left arm. -S/P Mechanical clot removal Diabetes mellitus, type 2. -Continue Janumet -Last A1C I can find was in november 2016 and was 5.3% Constipation. -On Colace daily H/O Chronic kidney disease, stage III. -Creatinine normal here and I do not see any elevations in recent history CAD -H/O stents 2016 -HC 08/2016 showing LVEF 65%, SKYE 0.7cm2, 70-80% LAD, 30% LCx, 70-75% RCA -CHRIS to RCA 09/2016 -CHRIS to LAD 01/2017 Hypothyroidism. -Continue levothyroxine Osteoarthritis. 08/18/17 Oxygen needs continue to increase. Chest X-ray this morning does revel small bilateral pleural effusions and pulmonary edema. Lasix 40 mg IV x1 given this morning, will give repeat 40mg IV Lasix this evening. IVF stopped. Continue to monitor urinary output via Ramirez cath (chronic- changed 08/15) Trend daily weights. she is up 5 Kg from admission Change cefepime for ceftriaxone for treatment of Ecoli UTI. Continue to monitor Accu-Cheks Recheck CBC in am due to UTI/Resolving sepsis. Will recheck BMP in am secondary to Lasix use. Lovenox subcutaneous daily for DVT prophylaxis 08/19/17 Transferred to CCU overnight secondary to Afib with RVR, diltiazem drip started. HR showing improvement. Will consult with Dr Vanessa for treatment recommendations for afib. Digoxin level slightly subtherapeutic at 0.7 - could be increased. Will continue with Rocephin for urinary coverage. Lasix 20mg IV x1 to help mobilize pulmonary edema. Will recheck CXR in am. Weight trending down. Output increased with Lasix yesterday. Continue with supplemental O2, weaning as able. Encourage oral intake. 08/20/17 Will start KCL bolus at 50cc/hr as potassium with significant decrease due to Lasix. Weight with decreased. CXR without change, but O2 sats improved with less O2 flow (3L). Continue ceftriaxone for urinary coverage. Encouraging that oral drive increasing. Likely transfer to medical floor later today. Will have PT/OT restart work tomorrow. 08/21/17 CXR showing gradual improvement. O2 needs decreasing (down to 2L, and weaning). Creatinine stable. Potassium improved to 3.7. Will decrease IV Lasix to 40mg twice a day - worry for overdiuresis with patients decreased oral drive. Diamox 500mg x1 as CO2 increasing. Encourage oral intake. Encourage activities with therapy. Will continue Rocephin for urinary coverage. 08/22/17 Continued improvement in CXR and O2 need. Patient still somnolent. Nursing working on increasing bowel motivation. Weight with decrease and creatinine increased to 1.3 -- will stop IV Lasix. Continue Rocephin. Encourage activities and therapy. 08/23/17 Patient still somnolent. Leukocytosis increasing 9.8-->11.9-->13.1 despite continuation of ceftriaxone for UTI (+ sensitivity for ceftriaxone on C&S). Check CXR. Remains in NSR at this time. Continues amiodarone . Cardiology following. Patient with minimal intake. Is on fluid restriction d/t recent fluid overload , but pt isn't taking much po. May consider IVF's if she isn't taking more p.o. 08/24/17 Patient remains somnolent but oral intake is improved today and she is acknowledging examiner also improved from yesterday. Will attempt to get patient up in chair today; PT/OT can attempt ambulation tomorrow. Leukocytosis improved today-may have aspirated with emesis 2 days ago but no indication of aspiration pneumonitis by x-ray. Day 7 ceftriaxone for UTI. Sodium up to 147, BUN up further today. Conjunction with poor oral intake and laboratory signs of dehydration will hydrate with 1 L 1/2 NS. Remains in sinus rhythm by my review of telemetry and exam. Persistent encephalopathy-increase activity as tolerates. Avoid sedating medications. Continue vitamin B 12-will resume oral administration at discharge. Blood sugars stable; blood pressure borderline low-reassess after fluids. 08/25/17 Somnolent, confused. Poor intake with supper last night. Persistent hypernatremia with mild improvement. BUN also improved. Tele reviewed - shows A-fib with normal rate. She went into a-fib around 0500. Hypotension with BP 87/59, UO overall poor over the last few days - give NS 250 mL bolus. CXR from 08/23 reviewed - pulm edema noted; will need to monitor resp status/sats closely. Rocephin day #8 for E. coli UTI. Repeat UC from 08/15 was neg. 08/26/17 Continues to be somnolent, confused. Poor intake. Persistent hypernatremia. Daughter ok with placing midline and starting IVF's. Has remained in NSR since 8am yesterday. UA, performed yesterday d/t somnolence and questionable abdominal pain, + for leuks and bacteria. Urine culture pending. Rocephin day #9 for E. coli UTI. <Lawrence Vanessa - Last Filed: 09/01/17 16:00> Exam Vital signs: Temperature 96.0 F L 09/01/17 15:37 Pulse Rate 87 09/01/17 15:37 Respiratory Rate 14 09/01/17 15:37 Blood Pressure 125/73 09/01/17 15:37 Pulse Oximetry 95 09/01/17 15:37 Inpatient Medications: Generic Name Dose Route Start Last Admin Trade Name Freq PRN Reason Stop Dose Admin Acetaminophen 650 mg 08/15/17 19:04 08/22/17 08:28 Tylenol PO 650 mg Q5H PRN Administration Discomfort Amiodarone HCl 200 mg 08/26/17 09:00 09/01/17 08:50 Pacerone PO 200 mg DAILY PAOLA Administration Aspirin 81 mg 08/16/17 09:00 09/01/17 08:51 Ecotrin PO 81 mg DAILY PAOLA Administration Bisacodyl 10 mg 08/22/17 17:05 Dulcolax RECTALLY DAILY PRN Constipation Clopidogrel Bisulfate 75 mg 08/17/17 09:00 09/01/17 08:51 Plavix PO 75 mg DAILY PAOLA Administration Cyanocobalamin 1,000 mcg 08/17/17 09:00 08/31/17 10:34 Vit. B-12 IM 1,000 mcg [place]ca PAOAL Administration Dextrose 10 ml 08/24/17 21:50 D50%W IVP PRN PRN Hypoglycemia Docusate Sodium 100 mg 08/27/17 13:57 Colace PO DAILY PRN Enoxaparin Sodium 40 mg 08/17/17 04:00 09/01/17 08:51 Lovenox SQ 40 mg DAILY PAOLA Administration Glucose 37.5 gm 08/24/17 21:50 Glutose 15 PO PRN PRN Hypoglycemia Insulin Aspart 1 - 5 unit 08/24/17 21:50 09/01/17 10:44 Novolog SQ 1 unit SS PRN Administration Hyperglycemia Protocol Levothyroxine Sodium 50 mcg 08/18/17 06:30 09/01/17 06:43 Synthroid PO 50 mcg ACB PAOLA Administration Memantine 10 mg 08/16/17 09:00 09/01/17 08:51 Namenda PO 10 mg BID PAOLA Administration Midodrine 5 mg 08/18/17 11:00 09/01/17 15:25 Proamatine PO 5 mg 0700,1100,1500 PAOLA Administration Pom Janumet 50-500 1 tab 08/26/17 09:45 08/26/17 14:55 PO 1 tab DAILY PAOLA Administration Ondansetron HCl 4 mg 08/15/17 19:04 08/23/17 09:42 Zofran IVP 4 mg Q6H PRN Administration Nausea &/or vomiting Polyethylene Glycol 17 gm 08/21/17 09:00 09/01/17 08:52 Miralax PO Not Given DAILY PAOLA Senna/Docusate Sodium 1 tab 08/15/17 19:04 08/26/17 09:59 Senna Plus Tablet PO 1 tab BID PRN Administration Constipation Sodium Chloride 10 - 80 ml 08/15/17 15:23 08/31/17 21:07 Iv Flush IVF 10 ml PRN PRN Administration Flushing Sodium Chloride 500 ml 08/15/17 15:35 08/21/17 02:54 Normal Saline IV 500 ml PRN PRN Administration Sodium Chloride 10 ml 08/15/17 19:04 08/24/17 15:09 Iv Flush IV 10 ml PRN PRN Administration Flushing Sodium Chloride 2 spray 08/18/17 18:44 09/01/17 12:12 Deep Sea Nasal Moisturizing [place] EA NOSTRIL Not Given QID PAOLA Sodium Phosphate 1 enema 08/22/17 10:00 Fleet Enema LA PRN PRN Vancomycin HCl 125 mg 08/29/17 21:00 09/01/17 15:26 Vancomycin Oral Liq PO 09/08/17 20:59 125 mg Q6HR PAOLA Administration Discontinued Medications Generic Name Dose Route Start Last Admin Trade Name Freq PRN Reason Stop Dose Admin Acetaminophen 650 mg 08/15/17 19:04 Tylenol Supp LA Q5H PRN Pain Acetazolamide 500 mg 08/21/17 12:26 08/21/17 14:27 Diamox PO 08/21/17 12:27 500 mg O ONE Administration Amiodarone HCl 100 mg 08/19/17 15:30 08/25/17 08:48 Pacerone PO Not Given DAILY [facility] Amiodarone HCl 150 mg 08/21/17 02:24 08/21/17 02:56 Amiodarone IV 08/21/17 02:25 150 mg O ONE Administration Ceftriaxone Sodium 1 g 08/25/17 14:30 09/01/17 10:58 Rocephin 1 Gm Vial IM Not Given Q24H [facility] Clopidogrel Bisulfate 75 mg 08/16/17 09:00 08/16/17 08:31 Plavix PO 75 mg DAILY [facility] Administration Cyanocobalamin 5,000 mcg 08/16/17 09:00 08/16/17 09:26 Vit. B-12 PO 5,000 mcg DAILY [facility]A Administration Cyanocobalamin 0 mcg 08/17/17 09:00 Vit. B-12 PO DAILY [facility] Digoxin 125 mcg 08/17/17 12:00 08/19/17 08:57 Lanoxin PO 125 mcg DAILY [facility]A Administration Digoxin 500 mcg 08/21/17 02:24 08/21/17 02:54 Lanoxin IVP 08/21/17 02:25 500 mcg O ONE Administration Diltiazem HCl 10 mg 08/18/17 21:55 08/18/17 22:19 Cardizem 25 Mg Inj IVP 08/18/17 21:56 10 mg O ONE Administration Docusate Sodium 100 mg 08/16/17 09:00 08/27/17 10:26 Colace PO 100 mg DAILY [facility] Administration Furosemide 40 mg 08/18/17 12:16 08/18/17 12:26 Lasix 40 Mg/4 Ml IVP 08/18/17 12:17 40 mg Q6HR ONE Administration Furosemide 40 mg 08/18/17 20:00 08/18/17 20:44 Lasix 40 Mg/4 Ml IVP 08/18/17 20:01 40 mg ONE TIME ONE Administration Furosemide 20 mg 08/19/17 10:19 08/19/17 10:31 Lasix 20 Mg/2 Ml IVP 08/19/17 10:20 20 mg ONCE ONE Administration Furosemide 40 mg 08/19/17 17:00 08/20/17 11:15 Lasix 40 Mg/4 Ml IVP 40 mg Q8HR [facility]A Administration Furosemide 40 mg 08/20/17 22:00 08/22/17 07:02 Lasix 40 Mg/4 Ml IVP 40 mg 0600,1400,2200 [facility] Administration Cefepime HCl 1 gm/ Sodium 100 mls @ 200 mls/hr 08/15/17 15:23 08/15/17 16:20 Chloride IV 08/15/17 15:52 Infused O ONE Infusion Sodium Chloride 1,000 mls @ 1,000 mls/hr 08/15/17 15:23 08/15/17 17:07 Normal Saline IV 08/15/17 16:22 Infused .Q1H ONE Infusion Sodium Chloride 1,000 mls @ 100 mls/hr 08/15/17 19:15 08/18/17 11:37 Normal Saline IV Infused .Q10H [facility] Infusion Cefepime HCl 1 gm/ Sodium 100 mls @ 200 mls/hr 08/15/17 21:30 08/18/17 10:03 Chloride IV Infused Q6H [facility] Infusion Sodium Chloride 500 mls @ 500 mls/hr 08/15/17 22:59 08/15/17 23:20 Normal Saline IV 08/15/17 23:58 Not Given .Q1H ONE Cefepime HCl 1 gm/ Sodium 100 mls @ 200 mls/hr 08/18/17 16:00 Chloride IV Q6H [facility] Ceftriaxone Sodium 1 g/ Sodium 100 mls @ 200 mls/hr 08/18/17 14:45 08/24/17 15:42 Chloride IV Infused Q24H [facility] Infusion Diltiazem HCl 125 mg/ Sodium 125 mls @ 5 mls/hr 08/18/17 23:00 08/19/17 13:52 Chloride IV 0 mls/hr .Q24H [facility] Infusion Protocol Amiodarone HCl 450 mg/ Sodium 250 mls @ 33.33 mls/hr 08/19/17 12:00 08/19/17 18:00 Chloride IV 08/19/17 18:00 0.99 mg/min .Q7H31M [facility] 33.33 mls/hr 1 MG/MIN Infusion Amiodarone HCl 900 mg/ Sodium 500 mls @ 16.66 mls/hr 08/19/17 18:00 Chloride IV .Q24H [facility] 0.5 MG/MIN Amiodarone HCl 150 mg/ Sodium 103 mls @ 618 mls/hr 08/19/17 11:57 08/19/17 12 :52 Chloride IV 08/19/17 12:06 Infused O ONE Infusion Potassium Chloride 10 meq in 100 mls @ 100 mls/hr 08/20/17 05:37 08/20/17 08: 07 Potassium Chloride Premix IV 08/20/17 06:36 Infused O ONE Infusion Lidocaine HCl 10 mg/ Potassium 100 mls @ 50 mls/hr 08/20/17 10:30 08/20/17 19 :55 Chloride 10 meq/ Sodium IV 08/20/17 18:57 Infused Chloride .Q2H [facility] Infusion Sodium Chloride 1,000 mls @ 75 mls/hr 08/24/17 15:45 08/25/17 05:40 1/2 Normal Saline IV 08/25/17 05:04 Infused .[id number] [facility] Infusion Sodium Chloride 1,000 mls @ 250 mls/hr 08/25/17 08:45 08/25/17 09:40 Normal Saline IV 08/25/17 09:44 Not Given .Q4H [facility] Sodium Chloride 1,000 mls @ 50 mls/hr 08/26/17 12:45 09/01/17 09:29 1/2 Normal Saline IV Not Given .Q20H [facility] Ceftriaxone Sodium 1 g/ Sodium 100 mls @ 200 mls/hr 08/26/17 16:15 08/28/17 17:12 Chloride IV Not Given Q24H [facility] Levothyroxine Sodium 50 mcg 08/16/17 06:30 08/17/17 05:58 Synthroid PO 50 mcg ACB [facility] Administration Lidocaine HCl 2.1 mg 08/25/17 14:30 Xylocaine-Mpf 1% Vial IJ Q24H [facility] Lidocaine HCl 21 mg 08/25/17 14:30 08/29/17 15:47 Xylocaine-Mpf 1% Vial IJ Not Given Q24H [facility] Metoprolol Tartrate 25 mg 08/17/17 03:29 08/17/17 03:59 Lopressor PO 25 mg Q6H PRN Administration Midodrine 5 mg 08/15/17 21:00 08/17/17 08:59 Proamatine PO 5 mg TID [facility] Administration Midodrine 5 mg 08/17/17 09:00 08/18/17 09:28 Proamatine PO 08/18/17 10:00 5 mg TID [facility] Administration Non-Formulary Medication 5,000 mcg 08/16/17 09:00 Cyanocobalamin (Vitamin B-12) [B-12] SL DAILY [facility] Non-Formulary Medication 28 mg 08/16/17 09:00 Memantine Hcl [Namenda Xr] PO DAILY [facility] Non-Formulary Medication 1 tab 08/15/17 21:00 Sitagliptin Phos/Metformin Hcl [Janumet 50-500 Mg Tablet] PO BID [facility] Pharmacy Consult 1 each 08/21/17 22:40 Pharmacy Consult - Fall Risk 08/21/17 22:41 ONE TIME ONE Potassium Chloride 40 meq 08/19/17 15:36 K-Dur 20 Meq Tablet PO 08/19/17 15:37 O ONE Potassium Chloride 40 meq 08/20/17 05:37 08/20/17 05:44 K-Dur 20 Meq Tablet PO 08/20/17 05:38 40 meq O ONE Administration Potassium Chloride 20 meq 08/20/17 17:30 08/22/17 12:14 K-Dur 20 Meq Tablet PO 20 meq TIDWM [facility] Administration Potassium Chloride 20 meq 08/30/17 10:35 08/30/17 11:20 K-Dur 20 Meq Tablet PO 08/30/17 10:36 20 meq O ONE Administration - Urinary Catheter Management Urethral Cath placed during this visit: no Results 08/31/17 04:08 08/31/17 06:31 Intake and Output 09/01/17 09/01/17 09/01/17 06:59 14:59 22:59 Intake Total 100 / 100 977.5 / 977.5 Output Total 300 / 300 Balance 100 / 100 677.5 / 677.5 Intake: IV 617.5 / 617.5 1/2 Ns 1,000 ml @ 50 mls/hr IV 617.5 / 617.5 .Q20H [facility] Rx#:[id number] Oral 100 / 100 360 / 360 Output: Urine Amount (Catheter) 300 / 300 Other: Urine Appearance Clear Weight 62.4 kg Patient Weight 09/02/17 06:59 Weight 62.4 kg Assessment and Plan - Assessment and Plan (1) Atrial fibrillation with RVR Current visit: Yes Status: Acute (2) Atherosclerotic heart disease of [place] coronary artery without angina pectoris Current visit: Yes Status: Chronic (3) Nonrheumatic aortic valve stenosis Current visit: Yes Status: Chronic (4) Syncope and collapse Current visit: Yes Status: Chronic (5) Hypotension Current visit: Yes Status: Chronic (6) Type 2 diabetes mellitus without complications Current visit: Yes Status: Chronic (7) Diastolic CHF Current visit: Yes Status: Acute - Attestation Attestation Narrative: 09/01/17 16:00 Recommendation After examining the patient I agree with the above assessment. I am involved in the formulation of the patient's plan of care. Hospital Course Summary Disclaimer: The visit summary below is not to be considered part of the above Progress Note.
[2017-08-26] MEDS: SALINE FLUSH 10ml SYRINGE IVF PRN (15:57)
[2017-08-26] MEDS: LIDOCAINE 1% (10mg/ml) 5ml PF SDV IJ SCH (15:58)
[2017-08-26] MEDS: 1/2 NS 1,000 ML IV SCH (15:58)
[2017-08-26] MEDS: CEFTRIAXONE 1 G in NS 100 ML IV SCH (16:09)
[2017-08-27] MEDS: 1/2 NS 1,000 ML IV SCH ×3 (00:13→19:21)
[2017-08-27] MEDS: LEVOTHYROXINE 50 MCG TABLET PO SCH (05:44)
[2017-08-27] MEDS: MIDODRINE 5 MG TABLET PO SCH ×3 (06:00→15:59)
--- NOTE | 2017-08-27 09:38 | Progress Note ---
- Date 08/27/17 Subjective: JOHNY was sleeping comfortably. She did not awaken to verbal or touch. She was in no distress and was breathing easily on room air. IVF running. RN reports that she's been sleeping all morning and hasn't been up yet to eat/drink anything. Objective Vital signs: Temperature 95.7 F L 08/26/17 23:09 Pulse Rate 74 08/27/17 01:00 Respiratory Rate 18 08/26/17 23:09 Blood Pressure 135/72 08/26/17 23:09 Pulse Oximetry 95 08/26/17 23:09 Rhythm: Atrial Fibrillation with Normal Ventricular Rate Height/Weight/BMI: Height 1.65 m Weight 60.9 kg Body Mass Index 25.2 - Constitutional Present: no acute distress, well nourished, well developed - Routine HEENT Exam Head: Present: normocephalic - Routine Respiratory Exam Present: decreased breath sounds - Routine Cardiovascular Exam Present: RRR, S1, S2, murmur - Routine Extremities Exam Present: no edema - Routine Skin Exam Present: intact, dry, warm - Routine Neurological Exam Absent: alert, oriented X3 - Routine Psychiatric Exam Present: unable to assess (sleeping) Results - Labs CBC & Chem 7: 08/26/17 04:55 08/27/17 04:08 Microbiology Results: Microbiology 08/25/17 15:20 Urine, Cath Ramirez Urine Culture - Final Rosalba albicans - ABG Interpretation ABG results: 08/25/17 12:01 ABG pH 7.431 ABG pCO2 46 H ABG pO2 71.4 L ABG HCO3 30.9 H ABG Total CO2 32.3 H ABG O2 Saturation 94.4 L ABG Base Excess 5.8 H Assessment and Plan (1) Sepsis Current visit: Yes Status: Acute Assessment and Plan: Assessment Sepsis secondary to UTI as indicated by tachycardia, fever, altered level of consciousness and hypotension. UTI - Recurrent, frequent -- E coli growing from culture 08/14/17 Chronic urinary retention--Indwelling Ramirez - since 02/2017 - changed 08/15/17. Encephalopathy -secondary to sepsis and UTI Pulmonary edema Bilateral pleural effusions - 08/18/17 Acute hypoxic respiratory insufficiency secondary to pulmonary edema Hypernatremia (not POA) Hypokalemia (not POA) Generalized weakness and debility - Acute due to illness Paroxysmal atrial fibrillation Developed RVR 08/18 S/P Cardioversion on 08/19 A-fib 08/25 Severe aortic stenosis Orthostatic hypotension Diabetes mellitus, type 2 CAD H/O Chronic kidney disease, stage III. Hypothyroidism Dementia Chronic constipation Osteoarthritis Hx DVT Hx CVA- 2011 Obstipation Plan Repeat UC from 08/25 was positive for rosalba. Will DC Rocephin, s/p 9 days of treatment. Change Ramirez. Na remains elevated at 146 despite starting 1/2NS yesterday. BUN decreased from 43 to 40. Weight is starting to increase; need to monitor closely for pulmonary edema as she required diuresis earlier in her hospital course. Reduce rate of IVF. PAF - continue increased dose of amiodarone. Currently in sinus. Continue therapy as able; pt is limited cognitively and physically. DVT Prophylaxis: Lovenox Resuscitation Status: Do Not Resuscitate - Physician Narrative Physician: Jolene Box MD Narrative: Date: 08/27/17 Time: 1500 I have independently evaluated and examined this patient. I reviewed the chart, the patient's history, and the [employer]/PA's documented findings as above. We discussed and formulated the assessment and plan as above with additions as below: Mrs. La was resting when I arrived. Mariajose expressed concern that several fingers on her left hand are swollen and continues to question about whether there is some other infection causing suppressed level of consciousness. NAD, sleeping my arrival but awakened to voice and identified family members at the bedside Respirations nonlabored, anterior breath sounds clear Regular rhythm Abdomen soft but tender to palpation primarily in the left upper> left lower quadrants without guarding, bowel sounds present Trace edema index and long digits of the left hand but the fingers are nontender and there is no active synovitis or erythema Abdominal pain was more generalized yesterday than it appears to be on exam today, no diarrhea reported by nursing. CT abdomen/pelvis to be obtained to exclude diverticulitis or other unrecognized intra-abdominal pathology. Lipase with AM labs. Telemetry strips reviewed by myself-sinus rhythm past 24 hours. Hospital Course Summary Disclaimer: The visit summary below is not to be considered part of the above Progress Note. Hospital Course: 08/15/17 [facility] to [facility] status under the care of Dr. Martinez. 1L NS initiated in ED. Will continue NS 100cc/hr for hydration. Cefepime 1g IV given in ED. Continue empiric coverage for urinary pathogens with Cefepime IV Q6H. UA culture from 08/14/17 revealing gram negative rods. Monitor for sensitives and new UA culture results. Blood culture obtained and results pending. Monitor closely on telemetry. Continue home medications. Monitor blood pressure closely. Monitor daily weight and urinary output closely for signs of fluid overload. Renal function stable. Upon discharge, patient's care will be returned to Dr Caballero. Patient is a DNR. 08/17/17 Sepsis secondary to UTI as indicated by tachycardia, fever, altered level of consciousness and hypotension. -IVF -Repeat lactate-normalized -Mental status improving UTI -Recurrent, frequent -Indwelling Ramirez- since 02/2017 - changed 08/15/17. -On cefepime -Bl cx NGTD -Urine cx from 08/15 NGTD, the one done on 08/14 growing E. coli sensitive to cefepime Altered level of consciousness. -This is usual for her when she gets an UTI per daughter -She does have underlying dementia -This is improved today Generalized weakness and debility. -Due to UTI -consult PT PAF -Not on OAC -Metoprolol 25mg q6hr prn started by nighttime MD -With her hypotension, she may not tolerate this. -Will try low dose digoxin and monitor History of CVA - 2011. -On aspirin and Plavix Dementia. -On Namenda XR Hypothyroid -continue levothyroxine -Last free T4 1.84 in November 2016 Severe aortic stenosis. -SKYE 0.7cm2 per 08/2016 Orthostatic hypotension -Continue midodrine History of DVT to left arm. -S/P Mechanical clot removal Diabetes mellitus, type 2. -Continue Janumet -Last A1C I can find was in november 2016 and was 5.3% Constipation. -On Colace daily H/O Chronic kidney disease, stage III. -Creatinine normal here and I do not see any elevations in recent history CAD -H/O stents 2016 -HC 08/2016 showing LVEF 65%, SKYE 0.7cm2, 70-80% LAD, 30% LCx, 70-75% RCA -CHRIS to RCA 09/2016 -CHRIS to LAD 01/2017 Hypothyroidism. -Continue levothyroxine Osteoarthritis. 08/18/17 Oxygen needs continue to increase. Chest X-ray this morning does revel small bilateral pleural effusions and pulmonary edema. Lasix 40 mg IV x1 given this morning, will give repeat 40mg IV Lasix this evening. IVF stopped. Continue to monitor urinary output via Ramirez cath (chronic- changed 08/15) Trend daily weights. she is up 5 Kg from admission Change cefepime for ceftriaxone for treatment of Ecoli UTI. Continue to monitor Accu-Cheks Recheck CBC in am due to UTI/Resolving sepsis. Will recheck BMP in am secondary to Lasix use. Lovenox subcutaneous daily for DVT prophylaxis 08/19/17 Transferred to CCU overnight secondary to Afib with RVR, diltiazem drip started. HR showing improvement. Will consult with Dr Vanessa for treatment recommendations for afib. Digoxin level slightly subtherapeutic at 0.7 - could be increased. Will continue with Rocephin for urinary coverage. Lasix 20mg IV x1 to help mobilize pulmonary edema. Will recheck CXR in am. Weight trending down. Output increased with Lasix yesterday. Continue with supplemental O2, weaning as able. Encourage oral intake. 08/20/17 Will start KCL bolus at 50cc/hr as potassium with significant decrease due to Lasix. Weight with decreased. CXR without change, but O2 sats improved with less O2 flow (3L). Continue ceftriaxone for urinary coverage. Encouraging that oral drive increasing. Likely transfer to medical floor later today. Will have PT/OT restart work tomorrow. 08/21/17 CXR showing gradual improvement. O2 needs decreasing (down to 2L, and weaning). Creatinine stable. Potassium improved to 3.7. Will decrease IV Lasix to 40mg twice a day - worry for overdiuresis with patients decreased oral drive. Diamox 500mg x1 as CO2 increasing. Encourage oral intake. Encourage activities with therapy. Will continue Rocephin for urinary coverage. 08/22/17 Continued improvement in CXR and O2 need. Patient still somnolent. Nursing working on increasing bowel motivation. Weight with decrease and creatinine increased to 1.3 -- will stop IV Lasix. Continue Rocephin. Encourage activities and therapy. 08/23/17 Patient still somnolent. Leukocytosis increasing 9.8-->11.9-->13.1 despite continuation of ceftriaxone for UTI (+ sensitivity for ceftriaxone on C&S). Check CXR. Remains in NSR at this time. Continues amiodarone . Cardiology following. Patient with minimal intake. Is on fluid restriction d/t recent fluid overload , but pt isn't taking much po. May consider IVF's if she isn't taking more p.o. 08/24/17 Patient remains somnolent but oral intake is improved today and she is acknowledging examiner also improved from yesterday. Will attempt to get patient up in chair today; PT/OT can attempt ambulation tomorrow. Leukocytosis improved today-may have aspirated with emesis 2 days ago but no indication of aspiration pneumonitis by x-ray. Day 7 ceftriaxone for UTI. Sodium up to 147, BUN up further today. Conjunction with poor oral intake and laboratory signs of dehydration will hydrate with 1 L 1/2 NS. Remains in sinus rhythm by my review of telemetry and exam. Persistent encephalopathy-increase activity as tolerates. Avoid sedating medications. Continue vitamin B 12-will resume oral administration at discharge. Blood sugars stable; blood pressure borderline low-reassess after fluids. 08/25/17 Somnolent, confused. Poor intake with supper last night. Persistent hypernatremia with mild improvement. BUN also improved. Tele reviewed - shows A-fib with normal rate. She went into a-fib around 0500. Hypotension with BP 87/59, UO overall poor over the last few days - give NS 250 mL bolus. CXR from 08/23 reviewed - pulm edema noted; will need to monitor resp status/sats closely. Rocephin day #8 for E. coli UTI. Repeat UC from 08/15 was neg. 08/26/17 Continues to be somnolent, confused. Poor intake. Persistent hypernatremia. Daughter ok with placing midline and starting IVF's. UA, performed yesterday d/t somnolence and questionable abdominal pain, + for leuks and bacteria. Urine culture pending.Rocephin day #9 for E. coli UTI. 08/27/17 Repeat UC from 08/25 was positive for rosalba. Will DC Rocephin, s/p 9 days of treatment. Change Ramirez. Na remains elevated at 146 despite starting 1/2NS yesterday. BUN decreased from 43 to 40. Weight is starting to increase; need to monitor closely for pulmonary edema as she required diuresis earlier in her hospital course. Reduce rate of IVF. PAF - continue increased dose of amiodarone. Currently in sinus. Continue therapy as able; pt is limited cognitively and physically.
[2017-08-27] MEDS: AMIODARONE 200 MG TABLET PO SCH (10:26)
[2017-08-27] MEDS: DOCUSATE SODIUM 100 MG CAPSULE PO SCH (10:26)
[2017-08-27] MEDS: CLOPIDOGREL 75 MG TABLET PO SCH (10:26)
[2017-08-27] MEDS: ENOXAPARIN 40 MG/0.4 ML INJECTION SQ SCH (10:27)
[2017-08-27] MEDS: MEMANTINE 10 MG TABLET PO SCH ×2 (10:27→20:33)
[2017-08-27] MEDS: ASPIRIN *EC* 81 MG TABLET PO SCH (10:27)
[2017-08-27] MEDS: POLYETHYL GLYCOL 3350 17gm PACKET PO SCH (10:27)
[2017-08-27] MEDS: SALINE 0.65% NASAL SPRAY 44 ML BOTTLE EA NOSTRIL SCH ×4 (10:28→20:33)
--- NOTE | 2017-08-27 13:09 | Cardiology Progress Note ---
<Sandra Guevara M - Last Filed: 08/28/17 16:11> Subjective Principal diagnosis: AFib RVR Interval history: Margarita is seen in follow up for AFib with RVR. She is seen in her room on Medical , she is sleeping and in no distress; doesn't wake to exam. She is in SR on telemetry. Exam Vital signs: Temperature 97.8 F 08/27/17 10:19 Pulse Rate 68 08/27/17 10:19 Respiratory Rate 16 08/27/17 10:19 Blood Pressure 107/58 08/27/17 10:19 Pulse Oximetry 94 08/27/17 10:19 Inpatient Medications: Generic Name Dose Route Start Last Admin Trade Name Freq PRN Reason Stop Dose Admin Acetaminophen 650 mg 08/15/17 19:04 08/22/17 08:28 Tylenol PO 650 mg Q5H PRN Administration Discomfort Amiodarone HCl 200 mg 08/26/17 09:00 08/27/17 10:26 Pacerone PO 200 mg DAILY [facility]A Administration Aspirin 81 mg 08/16/17 09:00 08/27/17 10:27 Ecotrin PO 81 mg DAILY [facility] Administration Bisacodyl 10 mg 08/22/17 17:05 Dulcolax RECTALLY DAILY PRN Constipation Clopidogrel Bisulfate 75 mg 08/17/17 09:00 08/27/17 10:26 Plavix PO 75 mg DAILY [facility] Administration Cyanocobalamin 1,000 mcg 08/17/17 09:00 08/24/17 08:59 Vit. B-12 IM 1,000 mcg Abarca PA[facility] Administration Dextrose 10 ml 08/24/17 21:50 D50%W IVP PRN PRN Hypoglycemia Docusate Sodium 100 mg 08/16/17 09:00 08/27/17 10:26 Colace PO 100 mg DAILY [facility] Administration Enoxaparin Sodium 40 mg 08/17/17 04:00 08/27/17 10:27 Lovenox SQ 40 mg DAILY [facility] Administration Glucose 37.5 gm 08/24/17 21:50 Glutose 15 PO PRN PRN Hypoglycemia Sodium Chloride 1,000 mls @ 60 mls/hr 08/26/17 12:45 08/27/17 10:29 1/2 Normal Saline IV 60 mls/hr .[id number] [facility] Infusion Ceftriaxone Sodium 1 g/ Sodium 100 mls @ 200 mls/hr 08/26/17 16:15 08/26/17 16:39 Chloride IV Infused Q24H [facility] Infusion Insulin Aspart 1 - 5 unit 08/24/17 21:50 08/26/17 16:18 Novolog SQ 2 unit SS PRN Administration Hyperglycemia Protocol Levothyroxine Sodium 50 mcg 08/18/17 06:30 08/27/17 05:44 Synthroid PO 50 mcg ACB [facility] Administration Lidocaine HCl 21 mg 08/25/17 14:30 08/26/17 15:58 Xylocaine-Mpf 1% Vial IJ Not Given Q24H [facility] Memantine 10 mg 08/16/17 09:00 08/27/17 10:27 Namenda PO 10 mg BID [facility] Administration Midodrine 5 mg 08/18/17 11:00 08/27/17 12:12 Proamatine PO 5 mg 0700,1100,1500 [facility] Administration Pom Janumet 50-500 1 tab 08/26/17 09:45 08/26/17 14:55 PO 1 tab DAILY [facility] Administration Ondansetron HCl 4 mg 08/15/17 19:04 08/23/17 09:42 Zofran IVP 4 mg Q6H PRN Administration Nausea &/or vomiting Polyethylene Glycol 17 gm 08/21/17 09:00 08/27/17 10:27 Miralax PO 17 gm DAILY [facility] Administration Senna/Docusate Sodium 1 tab 08/15/17 19:04 08/26/17 09:59 Senna Plus Tablet PO 1 tab BID PRN Administration Constipation Sodium Chloride 10 - 80 ml 08/15/17 15:23 08/26/17 15:57 Iv Flush IVF 10 ml PRN PRN Administration Flushing Sodium Chloride 500 ml 08/15/17 15:35 08/21/17 02:54 Normal Saline IV 500 ml PRN PRN Administration Sodium Chloride 10 ml 08/15/17 19:04 08/24/17 15:09 Iv Flush IV 10 ml PRN PRN Administration Flushing Sodium Chloride 2 spray 08/18/17 18:44 08/27/17 12:12 Deep Sea Nasal Moisturizing [place] EA NOSTRIL 2 spray QID [facility] Administration Sodium Phosphate 1 enema 08/22/17 10:00 Fleet Enema [place] PRN PRN Discontinued Medications Generic Name Dose Route Start Last Admin Trade Name Freq PRN Reason Stop Dose Admin Acetaminophen 650 mg 08/15/17 19:04 Tylenol Supp [place] Q5H PRN Pain Acetazolamide 500 mg 08/21/17 12:26 08/21/17 14:27 Diamox PO 08/21/17 12:27 500 mg O ONE Administration Amiodarone HCl 100 mg 08/19/17 15:30 08/25/17 08:48 Pacerone PO Not Given DAILY [facility] Amiodarone HCl 150 mg 08/21/17 02:24 08/21/17 02:56 Amiodarone IV 08/21/17 02:25 150 mg O ONE Administration Ceftriaxone Sodium 1 g 08/25/17 14:30 08/26/17 14:56 Rocephin 1 Gm Vial IM Not Given Q24H [facility] Clopidogrel Bisulfate 75 mg 08/16/17 09:00 08/16/17 08:31 Plavix PO 75 mg DAILY [facility] Administration Cyanocobalamin 5,000 mcg 08/16/17 09:00 08/16/17 09:26 Vit. B-12 PO 5,000 mcg DAILY [facility] Administration Cyanocobalamin 0 mcg 08/17/17 09:00 Vit. B-12 PO DAILY [facility] Digoxin 125 mcg 08/17/17 12:00 08/19/17 08:57 Lanoxin PO 125 mcg DAILY [facility] Administration Digoxin 500 mcg 08/21/17 02:24 08/21/17 02:54 Lanoxin IVP 08/21/17 02:25 500 mcg O ONE Administration Diltiazem HCl 10 mg 08/18/17 21:55 08/18/17 22:19 Cardizem 25 Mg Inj IVP 08/18/17 21:56 10 mg O ONE Administration Furosemide 40 mg 08/18/17 12:16 08/18/17 12:26 Lasix 40 Mg/4 Ml IVP 08/18/17 12:17 40 mg Q6HR ONE Administration Furosemide 40 mg 08/18/17 20:00 08/18/17 20:44 Lasix 40 Mg/4 Ml IVP 08/18/17 20:01 40 mg ONE TIME ONE Administration Furosemide 20 mg 08/19/17 10:19 08/19/17 10:31 Lasix 20 Mg/2 Ml IVP 08/19/17 10:20 20 mg ONCE ONE Administration Furosemide 40 mg 08/19/17 17:00 08/20/17 11:15 Lasix 40 Mg/4 Ml IVP 40 mg Q8HR [facility] Administration Furosemide 40 mg 08/20/17 22:00 08/22/17 07:02 Lasix 40 Mg/4 Ml IVP 40 mg 0600,1400,2200 [facility] Administration Cefepime HCl 1 gm/ Sodium 100 mls @ 200 mls/hr 08/15/17 15:23 08/15/17 16:20 Chloride IV 08/15/17 15:52 Infused O ONE Infusion Sodium Chloride 1,000 mls @ 1,000 mls/hr 08/15/17 15:23 08/15/17 17:07 Normal Saline IV 08/15/17 16:22 Infused .Q1H ONE Infusion Sodium Chloride 1,000 mls @ 100 mls/hr 08/15/17 19:15 08/18/17 11:37 Normal Saline IV Infused .Q10H [facility] Infusion Cefepime HCl 1 gm/ Sodium 100 mls @ 200 mls/hr 08/15/17 21:30 08/18/17 10:03 Chloride IV Infused Q6H [facility] Infusion Sodium Chloride 500 mls @ 500 mls/hr 08/15/17 22:59 08/15/17 23:20 Normal Saline IV 08/15/17 23:58 Not Given .Q1H ONE Cefepime HCl 1 gm/ Sodium 100 mls @ 200 mls/hr 08/18/17 16:00 Chloride IV Q6H [facility] Ceftriaxone Sodium 1 g/ Sodium 100 mls @ 200 mls/hr 08/18/17 14:45 08/24/17 15:42 Chloride IV Infused Q24H [facility] Infusion Diltiazem HCl 125 mg/ Sodium 125 mls @ 5 mls/hr 08/18/17 23:00 08/19/17 13:52 Chloride IV 0 mls/hr .Q24H [facility] Infusion Protocol Amiodarone HCl 450 mg/ Sodium 250 mls @ 33.33 mls/hr 08/19/17 12:00 08/19/17 18:00 Chloride IV 08/19/17 18:00 0.99 mg/min .Q7H31M PA[facility]A 33.33 mls/hr 1 MG/MIN Infusion Amiodarone HCl 900 mg/ Sodium 500 mls @ 16.66 mls/hr 08/19/17 18:00 Chloride IV .Q24H [facility] 0.5 MG/MIN Amiodarone HCl 150 mg/ Sodium 103 mls @ 618 mls/hr 08/19/17 11:57 08/19/17 12 :52 Chloride IV 08/19/17 12:06 Infused O ONE Infusion Potassium Chloride 10 meq in 100 mls @ 100 mls/hr 08/20/17 05:37 08/20/17 08: 07 Potassium Chloride Premix IV 08/20/17 06:36 Infused O ONE Infusion Lidocaine HCl 10 mg/ Potassium 100 mls @ 50 mls/hr 08/20/17 10:30 08/20/17 19 :55 Chloride 10 meq/ Sodium IV 08/20/17 18:57 Infused Chloride .Q2H [facility] Infusion Sodium Chloride 1,000 mls @ 75 mls/hr 08/24/17 15:45 08/25/17 05:40 1/2 Normal Saline IV 08/25/17 05:04 Infused .[id number] [facility] Infusion Sodium Chloride 1,000 mls @ 250 mls/hr 08/25/17 08:45 08/25/17 09:40 Normal Saline IV 08/25/17 09:44 Not Given .Q4H [facility] Levothyroxine Sodium 50 mcg 08/16/17 06:30 08/17/17 05:58 Synthroid PO 50 mcg ACB [facility] Administration Lidocaine HCl 2.1 mg 08/25/17 14:30 Xylocaine-Mpf 1% Vial IJ Q24H [facility] Metoprolol Tartrate 25 mg 08/17/17 03:29 08/17/17 03:59 Lopressor PO 25 mg Q6H PRN Administration Midodrine 5 mg 08/15/17 21:00 08/17/17 08:59 Proamatine PO 5 mg TID PA[facility] Administration Midodrine 5 mg 08/17/17 09:00 08/18/17 09:28 Proamatine PO 08/18/17 10:00 5 mg TID [facility] Administration Non-Formulary Medication 5,000 mcg 08/16/17 09:00 Cyanocobalamin (Vitamin B-12) [B-12] SL DAILY [facility] Non-Formulary Medication 28 mg 08/16/17 09:00 Memantine Hcl [Namenda Xr] PO DAILY [facility] Non-Formulary Medication 1 tab 08/15/17 21:00 Sitagliptin Phos/Metformin Hcl [Janumet 50-500 Mg Tablet] PO BID [facility] Pharmacy Consult 1 each 08/21/17 22:40 Pharmacy Consult - Fall Risk MC 08/21/17 22:41 ONE TIME ONE Potassium Chloride 40 meq 08/19/17 15:36 K-Dur 20 Meq Tablet PO 08/19/17 15:37 O ONE Potassium Chloride 40 meq 08/20/17 05:37 08/20/17 05:44 K-Dur 20 Meq Tablet PO 08/20/17 05:38 40 meq O ONE Administration Potassium Chloride 20 meq 08/20/17 17:30 08/22/17 12:14 K-Dur 20 Meq Tablet PO 20 meq TIDWM [facility] Administration - Constitutional no acute distress, well nourished - Routine HEENT Exam Head: Present: normocephalic ENT: Present: mucous membranes moist - Routine Neck Exam Absent: JVD, carotid bruit - Routine Chest/Breast/Axilla Exam Chest wall: Absent: tenderness - Routine Respiratory Exam Present: decreased breath sounds - Routine Cardiovascular Exam Present: RRR, murmur (II/) - Routine Abdominal Exam Present: soft, non tender - Routine Extremities Exam Present: no edema - Routine Skin Exam Present: intact, dry, warm - Routine Psychiatric Exam Present: unable to assess - Urinary Catheter Management Urethral Cath placed during this visit: yes, but has since been removed by the nurse Insertion date: 08/21/17 Insertion time: 12:30 Removal date: 08/21/17 Removal time: 12:00 Results 08/28/17 03:59 08/28/17 03:59 Cardiac Enzymes 08/27/17 Range/Units 04:08 AST 17 (14-36) U/L Comprehensive Metabolic Panel 08/27/17 Range/Units 04:08 Sodium 146 H (134-144) MEQ/L Potassium 4.0 (3.6-5) MEQ/L Chloride 105 (98-107) MEQ/L Carbon Dioxide 30 (22-30) MEQ/L BUN 40.0 H (7-17) MG/DL Creatinine 0.8 (0.7-1.2) mg/dL Glucose 127 H (65-110) MG/DL Calcium 9.0 (8.4-10.2) MG/DL AST 17 (14-36) U/L ALT 9 (1-35) U/L Alkaline Phosphatase 92 (38-126) U/L Total Protein 6.0 L (6.3-8.2) g/dL Albumin 3.0 L (3.5-5.0) g/dL Intake and Output 08/26/17 08/27/17 08/27/17 22:59 06:59 14:59 Intake Total 430 / 430 980 / 980 700 / 700 Output Total 350 / 350 Balance 430 / 430 630 / 630 700 / 700 Intake: IV 120 / 120 980 / 980 700 / 700 1/2 Ns 1,000 ml @ 60 mls/hr IV 20 / 20 980 / 980 700 / 700 .[id number] [facility]A Rx#:[id number] Ceftriaxone 1 g In Ns 100 ml @ 100 / 100 200 mls/hr IV Q24H PA[facility]A Rx#: [id number] Oral 310 / 310 Output: Urine 150 / 150 Urine Amount (Catheter) 200 / 200 Other: Urine Color Dark Yellow Stool Consistency Soft Size of Bowel Movement Large Weight 137 lb 2.04 oz Assessment and Plan - Assessment and Plan (1) Atrial fibrillation with RVR Current visit: Yes Status: Acute (2) Atherosclerotic heart disease of [place] coronary artery without angina pectoris Current visit: Yes Status: Chronic (3) Nonrheumatic aortic valve stenosis Current visit: Yes Status: Chronic (4) Syncope and collapse Current visit: Yes Status: Chronic (5) Hypotension Current visit: Yes Status: Chronic (6) Type 2 diabetes mellitus without complications Current visit: Yes Status: Chronic (7) Diastolic CHF Current visit: Yes Status: Acute - Assessment and Plan 08/19/17 A Fib with RVR: History of PAF, asymptomatic - Takes Amiodarone 100mg daily, not given this admission - Amiodarone bolus and drip - Npo for possible DCCV - Converted to SR - Resume home Amiodarone 100mg PO daily and stop IV - EKG now - Stop Digoxin. - Check TSh and Mag DCHF: Diurese with Lasix 40mg IV q8h - CXR: Diffuse airspace opacities throughout both lungs. Probable small bilateral pleural effusions. Close interval follow-up is recommended. - K+ 3.3, replace CAD: Stable. continue current therapy, routine monitoring. - Continue Aspirin and Plavix Hypotension: Continue Midodrine Thank you for allowing us to participate in the care of this patient. 08/20/17 AFib:Continue home dose Amiodarone 100mg daily - Not a candidate for correction anticoagulation due to age and fall risk DCHF: Diuresing well. - CXR: No significant change in diffuse bilateral airspace disease which could represent edema, pneumonia, massive aspiration or pulmonary hemorrhage. - Continue Lasix 40mg IV q8h - K+ 2.9, Replace K+ 20meq po with meals TID - TSH, Mag WNL - Monitor renal and electrolytes 08/21/17 Went back into AFib overnight. - Given 150mg IV Amiodarone bolus and Digoxin 500mcg - Converted back this afternoon to SR - Continue Amiodarone at 100mg daily CXR: Overall slight improvement in appearance of the chest may be due to resolving edema. - Continue diuresis - Monitor renal and electrolytes 08/22/17 BUN/SCr 39/ 1.3, NA 145 today, K+ 4.2 - Diuretic stopped by attending - Stop K+ replacement CXR: Impression: Continued improvement in pulmonary edema. 08/25/17 Accurate I & O please, need to watch fluid balance closely with patient's and history of hypotension. - Monitor renal and electrolytes - CXR 08/23/17: Stable to slightly improved appearance of the lungs. 08/26/17 Increased Amiodarone to 200mg daily for better control of PAF 08/27/17 Telemetry remains SR Closely monitor Fluid balance due to . - weight increasing - IVF/ rate per hospitalist Hospital Course Summary Disclaimer: The visit summary below is not to be considered part of the above Progress Note. Hospital Course: 08/15/17 Admit to [facility] status under the care of Dr. Martinez. 1L NS initiated in ED. Will continue NS 100cc/hr for hydration. Cefepime 1g IV given in ED. Continue empiric coverage for urinary pathogens with Cefepime IV Q6H. UA culture from 08/14/17 revealing gram negative rods. Monitor for sensitives and new UA culture results. Blood culture obtained and results pending. Monitor closely on telemetry. Continue home medications. Monitor blood pressure closely. Monitor daily weight and urinary output closely for signs of fluid overload. Renal function stable. Upon discharge, patient's care will be returned to Dr Caballero. Patient is a DNR. 08/17/17 Sepsis secondary to UTI as indicated by tachycardia, fever, altered level of consciousness and hypotension. -IVF -Repeat lactate-normalized -Mental status improving UTI -Recurrent, frequent -Indwelling Ramirez- since 02/2017 - changed 08/15/17. -On cefepime -Bl cx NGTD -Urine cx from 08/15 NGTD, the one done on 08/14 growing E. coli sensitive to cefepime Altered level of consciousness. -This is usual for her when she gets an UTI per daughter -She does have underlying dementia -This is improved today Generalized weakness and debility. -Due to UTI -consult PT PAF -Not on OAC -Metoprolol 25mg q6hr prn started by nighttime MD -With her hypotension, she may not tolerate this. -Will try low dose digoxin and monitor History of CVA - 2011. -On aspirin and Plavix Dementia. -On Namenda XR Hypothyroid -continue levothyroxine -Last free T4 1.84 in November 2016 Severe aortic stenosis. -SKYE 0.7cm2 per 08/2016 Orthostatic hypotension -Continue midodrine History of DVT to left arm. -S/P Mechanical clot removal Diabetes mellitus, type 2. -Continue Janumet -Last A1C I can find was in november 2016 and was 5.3% Constipation. -On Colace daily H/O Chronic kidney disease, stage III. -Creatinine normal here and I do not see any elevations in recent history CAD -H/O stents 2016 -HC 08/2016 showing LVEF 65%, SKYE 0.7cm2, 70-80% LAD, 30% LCx, 70-75% RCA -CHRIS to RCA 09/2016 -CHRIS to LAD 01/2017 Hypothyroidism. -Continue levothyroxine Osteoarthritis. 08/18/17 Oxygen needs continue to increase. Chest X-ray this morning does revel small bilateral pleural effusions and pulmonary edema. Lasix 40 mg IV x1 given this morning, will give repeat 40mg IV Lasix this evening. IVF stopped. Continue to monitor urinary output via Ramirez cath (chronic- changed 08/15) Trend daily weights. she is up 5 Kg from admission Change cefepime for ceftriaxone for treatment of Ecoli UTI. Continue to monitor Accu-Cheks Recheck CBC in am due to UTI/Resolving sepsis. Will recheck BMP in am secondary to Lasix use. Lovenox subcutaneous daily for DVT prophylaxis 08/19/17 Transferred to CCU overnight secondary to Afib with RVR, diltiazem drip started. HR showing improvement. Will consult with Dr Vanessa for treatment recommendations for afib. Digoxin level slightly subtherapeutic at 0.7 - could be increased. Will continue with Rocephin for urinary coverage. Lasix 20mg IV x1 to help mobilize pulmonary edema. Will recheck CXR in am. Weight trending down. Output increased with Lasix yesterday. Continue with supplemental O2, weaning as able. Encourage oral intake. 08/20/17 Will start KCL bolus at 50cc/hr as potassium with significant decrease due to Lasix. Weight with decreased. CXR without change, but O2 sats improved with less O2 flow (3L). Continue ceftriaxone for urinary coverage. Encouraging that oral drive increasing. Likely transfer to medical floor later today. Will have PT/OT restart work tomorrow. 08/21/17 CXR showing gradual improvement. O2 needs decreasing (down to 2L, and weaning). Creatinine stable. Potassium improved to 3.7. Will decrease IV Lasix to 40mg twice a day - worry for overdiuresis with patients decreased oral drive. Diamox 500mg x1 as CO2 increasing. Encourage oral intake. Encourage activities with therapy. Will continue Rocephin for urinary coverage. 08/22/17 Continued improvement in CXR and O2 need. Patient still somnolent. Nursing working on increasing bowel motivation. Weight with decrease and creatinine increased to 1.3 -- will stop IV Lasix. Continue Rocephin. Encourage activities and therapy. 08/23/17 Patient still somnolent. Leukocytosis increasing 9.8-->11.9-->13.1 despite continuation of ceftriaxone for UTI (+ sensitivity for ceftriaxone on C&S). Check CXR. Remains in NSR at this time. Continues amiodarone . Cardiology following. Patient with minimal intake. Is on fluid restriction d/t recent fluid overload , but pt isn't taking much po. May consider IVF's if she isn't taking more p.o. 08/24/17 Patient remains somnolent but oral intake is improved today and she is acknowledging examiner also improved from yesterday. Will attempt to get patient up in chair today; PT/OT can attempt ambulation tomorrow. Leukocytosis improved today-may have aspirated with emesis 2 days ago but no indication of aspiration pneumonitis by x-ray. Day 7 ceftriaxone for UTI. Sodium up to 147, BUN up further today. Conjunction with poor oral intake and laboratory signs of dehydration will hydrate with 1 L 1/2 NS. Remains in sinus rhythm by my review of telemetry and exam. Persistent encephalopathy-increase activity as tolerates. Avoid sedating medications. Continue vitamin B 12-will resume oral administration at discharge. Blood sugars stable; blood pressure borderline low-reassess after fluids. 08/25/17 Somnolent, confused. Poor intake with supper last night. Persistent hypernatremia with mild improvement. BUN also improved. Tele reviewed - shows A-fib with normal rate. She went into a-fib around 0500. Hypotension with BP 87/59, UO overall poor over the last few days - give NS 250 mL bolus. CXR from 08/23 reviewed - pulm edema noted; will need to monitor resp status/sats closely. Rocephin day #8 for E. coli UTI. Repeat UC from 08/15 was neg. 08/26/17 Continues to be somnolent, confused. Poor intake. Persistent hypernatremia. Daughter ok with placing midline and starting IVF's. Has remained in NSR since 8am yesterday. UA, performed yesterday d/t somnolence and questionable abdominal pain, + for leuks and bacteria. Urine culture pending. Rocephin day #9 for E. coli UTI. <Lawrence Vanessa - Last Filed: 09/04/17 13:32> Exam Vital signs: Temperature 95.2 F L 09/04/17 12:00 Pulse Rate 61 09/04/17 12:00 Respiratory Rate 16 09/04/17 12:00 Blood Pressure 96/56 09/04/17 12:00 Pulse Oximetry 98 09/04/17 08:21 Inpatient Medications: Generic Name Dose Route Start Last Admin Trade Name Freq PRN Reason Stop Dose Admin Acetaminophen 650 mg 08/15/17 19:04 09/03/17 13:03 Tylenol PO 650 mg Q5H PRN Administration Discomfort Amiodarone HCl 200 mg 08/26/17 09:00 05/17/18 08:31 Pacerone PO 200 mg DAILY [facility]A Administration Aspirin 81 mg 08/16/17 09:00 09/04/17 08:31 Ecotrin PO 81 mg DAILY [facility] Administration Bisacodyl 10 mg 08/22/17 17:05 Dulcolax RECTALLY DAILY PRN Constipation Clopidogrel Bisulfate 75 mg 08/17/17 09:00 09/04/17 08:32 Plavix PO 75 mg DAILY [facility] Administration Cyanocobalamin 1,000 mcg 08/17/17 09:00 08/31/17 10:34 Vit. B-12 IM 1,000 mcg Abarca PA[facility]A Administration Dextrose 10 ml 08/24/17 21:50 D50%W IVP PRN PRN Hypoglycemia Docusate Sodium 100 mg 08/27/17 13:57 Colace PO DAILY PRN Enoxaparin Sodium 40 mg 08/17/17 04:00 09/04/17 08:31 Lovenox SQ 40 mg DAILY [facility] Administration Glucose 37.5 gm 08/24/17 21:50 Glutose 15 PO PRN PRN Hypoglycemia Insulin Aspart 1 - 5 unit 08/24/17 21:50 09/04/17 12:07 Novolog SQ 1 unit SS PRN Administration Hyperglycemia Protocol Levothyroxine Sodium 50 mcg 08/18/17 06:30 09/04/17 06:00 Synthroid PO 50 mcg ACB [facility] Administration Memantine 10 mg 08/16/17 09:00 09/04/17 08:31 Namenda PO 10 mg BID [facility] Administration Midodrine 5 mg 08/18/17 11:00 09/04/17 12:07 Proamatine PO 5 mg 0700,1100,1500 PA[facility]A Administration Pom Janumet 50-500 1 tab 08/26/17 09:45 08/26/17 14:55 PO 1 tab DAILY [facility] Administration Ondansetron HCl 4 mg 08/15/17 19:04 08/23/17 09:42 Zofran IVP 4 mg Q6H PRN Administration Nausea &/or vomiting Polyethylene Glycol 17 gm 08/21/17 09:00 09/04/17 08:31 Miralax PO 17 gm DAILY [facility] Administration Senna/Docusate Sodium 1 tab 08/15/17 19:04 08/26/17 09:59 Senna Plus Tablet PO 1 tab BID PRN Administration Constipation Sodium Chloride 10 - 80 ml 08/15/17 15:23 09/03/17 04:04 Iv Flush IVF 30 ml PRN PRN Administration Flushing Sodium Chloride 500 ml 08/15/17 15:35 08/21/17 02:54 Normal Saline IV 500 ml PRN PRN Administration Sodium Chloride 10 ml 08/15/17 19:04 08/24/17 15:09 Iv Flush IV 10 ml PRN PRN Administration Flushing Sodium Chloride 2 spray 08/18/17 18:44 09/04/17 12:08 Deep Sea Nasal Moisturizing [place] EA NOSTRIL 2 spray QID [facility]A Administration Sodium Phosphate 1 enema 08/22/17 10:00 Fleet Enema [place] PRN PRN Vancomycin HCl 125 mg 08/29/17 21:00 09/04/17 08:31 Vancomycin Oral Liq PO 09/08/17 20:59 125 mg Q6HR [facility] Administration Discontinued Medications Generic Name Dose Route Start Last Admin Trade Name Freq PRN Reason Stop Dose Admin Acetaminophen 650 mg 08/15/17 19:04 Tylenol Supp MN Q5H PRN Pain Acetazolamide 500 mg 08/21/17 12:26 08/21/17 14:27 Diamox PO 08/21/17 12:27 500 mg O ONE Administration Amiodarone HCl 100 mg 08/19/17 15:30 08/25/17 08:48 Pacerone PO Not Given DAILY [facility] Amiodarone HCl 150 mg 08/21/17 02:24 08/21/17 02:56 Amiodarone IV 08/21/17 02:25 150 mg O ONE Administration Ceftriaxone Sodium 1 g 08/25/17 14:30 09/01/17 10:58 Rocephin 1 Gm Vial IM Not Given Q24H [facility] Clopidogrel Bisulfate 75 mg 08/16/17 09:00 08/16/17 08:31 Plavix PO 75 mg DAILY [facility] Administration Cyanocobalamin 5,000 mcg 08/16/17 09:00 08/16/17 09:26 Vit. B-12 PO 5,000 mcg DAILY [facility] Administration Cyanocobalamin 0 mcg 08/17/17 09:00 Vit. B-12 PO DAILY [facility] Digoxin 125 mcg 08/17/17 12:00 08/19/17 08:57 Lanoxin PO 125 mcg DAILY [facility] Administration Digoxin 500 mcg 08/21/17 02:24 08/21/17 02:54 Lanoxin IVP 08/21/17 02:25 500 mcg O ONE Administration Diltiazem HCl 10 mg 08/18/17 21:55 08/18/17 22:19 Cardizem 25 Mg Inj IVP 08/18/17 21:56 10 mg O ONE Administration Docusate Sodium 100 mg 08/16/17 09:00 08/27/17 10:26 Colace PO 100 mg DAILY [facility] Administration Furosemide 40 mg 08/18/17 12:16 08/18/17 12:26 Lasix 40 Mg/4 Ml IVP 08/18/17 12:17 40 mg Q6HR ONE Administration Furosemide 40 mg 08/18/17 20:00 08/18/17 20:44 Lasix 40 Mg/4 Ml IVP 08/18/17 20:01 40 mg ONE TIME ONE Administration Furosemide 20 mg 08/19/17 10:19 08/19/17 10:31 Lasix 20 Mg/2 Ml IVP 08/19/17 10:20 20 mg ONCE ONE Administration Furosemide 40 mg 08/19/17 17:00 08/20/17 11:15 Lasix 40 Mg/4 Ml IVP 40 mg Q8HR [facility] Administration Furosemide 40 mg 08/20/17 22:00 08/22/17 07:02 Lasix 40 Mg/4 Ml IVP 40 mg 0600,1400,2200 [facility] Administration Cefepime HCl 1 gm/ Sodium 100 mls @ 200 mls/hr 08/15/17 15:23 08/15/17 16:20 Chloride IV 08/15/17 15:52 Infused O ONE Infusion Sodium Chloride 1,000 mls @ 1,000 mls/hr 08/15/17 15:23 08/15/17 17:07 Normal Saline IV 08/15/17 16:22 Infused .Q1H ONE Infusion Sodium Chloride 1,000 mls @ 100 mls/hr 08/15/17 19:15 08/18/17 11:37 Normal Saline IV Infused .Q10H [facility] Infusion Cefepime HCl 1 gm/ Sodium 100 mls @ 200 mls/hr 08/15/17 21:30 08/18/17 10:03 Chloride IV Infused Q6H [facility] Infusion Sodium Chloride 500 mls @ 500 mls/hr 08/15/17 22:59 08/15/17 23:20 Normal Saline IV 08/15/17 23:58 Not Given .Q1H ONE Cefepime HCl 1 gm/ Sodium 100 mls @ 200 mls/hr 08/18/17 16:00 Chloride IV Q6H [facility] Ceftriaxone Sodium 1 g/ Sodium 100 mls @ 200 mls/hr 08/18/17 14:45 08/24/17 15:42 Chloride IV Infused Q24H [facility] Infusion Diltiazem HCl 125 mg/ Sodium 125 mls @ 5 mls/hr 08/18/17 23:00 08/19/17 13:52 Chloride IV 0 mls/hr .Q24H [facility] Infusion Protocol Amiodarone HCl 450 mg/ Sodium 250 mls @ 33.33 mls/hr 08/19/17 12:00 08/19/17 18:00 Chloride IV 08/19/17 18:00 0.99 mg/min .Q7H31M [facility]OLA 33.33 mls/hr 1 MG/MIN Infusion Amiodarone HCl 900 mg/ Sodium 500 mls @ 16.66 mls/hr 08/19/17 18:00 Chloride IV .Q24H [facility] 0.5 MG/MIN Amiodarone HCl 150 mg/ Sodium 103 mls @ 618 mls/hr 08/19/17 11:57 08/19/17 12 :52 Chloride IV 08/19/17 12:06 Infused O ONE Infusion Potassium Chloride 10 meq in 100 mls @ 100 mls/hr 08/20/17 05:37 08/20/17 08: 07 Potassium Chloride Premix IV 08/20/17 06:36 Infused O ONE Infusion Lidocaine HCl 10 mg/ Potassium 100 mls @ 50 mls/hr 08/20/17 10:30 08/20/17 19 :55 Chloride 10 meq/ Sodium IV 08/20/17 18:57 Infused Chloride .Q2H [facility] Infusion Sodium Chloride 1,000 mls @ 75 mls/hr 08/24/17 15:45 08/25/17 05:40 1/2 Normal Saline IV 08/25/17 05:04 Infused .[id number] [facility] Infusion Sodium Chloride 1,000 mls @ 250 mls/hr 08/25/17 08:45 08/25/17 09:40 Normal Saline IV 08/25/17 09:44 Not Given .Q4H [facility] Sodium Chloride 1,000 mls @ 50 mls/hr 08/26/17 12:45 09/01/17 09:29 1/2 Normal Saline IV Not Given .Q20H [facility] Ceftriaxone Sodium 1 g/ Sodium 100 mls @ 200 mls/hr 08/26/17 16:15 08/28/17 17:12 Chloride IV Not Given Q24H [facility] Levothyroxine Sodium 50 mcg 08/16/17 06:30 08/17/17 05:58 Synthroid PO 50 mcg ACB PAOLA Administration Lidocaine HCl 2.1 mg 08/25/17 14:30 Xylocaine-Mpf 1% Vial IJ Q24H [facility] Lidocaine HCl 21 mg 08/25/17 14:30 08/29/17 15:47 Xylocaine-Mpf 1% Vial IJ Not Given Q24H [facility] Metoprolol Tartrate 25 mg 08/17/17 03:29 08/17/17 03:59 Lopressor PO 25 mg Q6H PRN Administration Midodrine 5 mg 08/15/17 21:00 08/17/17 08:59 Proamatine PO 5 mg TID PA[facility]A Administration Midodrine 5 mg 08/17/17 09:00 08/18/17 09:28 Proamatine PO 08/18/17 10:00 5 mg TID PAOLA Administration Non-Formulary Medication 5,000 mcg 08/16/17 09:00 Cyanocobalamin (Vitamin B-12) [B-12] SL DAILY [facility] Non-Formulary Medication 28 mg 08/16/17 09:00 Memantine Hcl [Namenda Xr] PO DAILY [facility] Non-Formulary Medication 1 tab 08/15/17 21:00 Sitagliptin Phos/Metformin Hcl [Janumet 50-500 Mg Tablet] PO BID [facility] Pharmacy Consult 1 each 08/21/17 22:40 Pharmacy Consult - Fall Risk 08/21/17 22:41 ONE TIME ONE Potassium Chloride 40 meq 08/19/17 15:36 K-Dur 20 Meq Tablet PO 08/19/17 15:37 O ONE Potassium Chloride 40 meq 08/20/17 05:37 08/20/17 05:44 K-Dur 20 Meq Tablet PO 08/20/17 05:38 40 meq O ONE Administration Potassium Chloride 20 meq 08/20/17 17:30 08/22/17 12:14 K-Dur 20 Meq Tablet PO 20 meq TIDWM PAOLA Administration Potassium Chloride 20 meq 05/12/18 10:35 08/30/17 11:20 K-Dur 20 Meq Tablet PO 08/30/17 10:36 20 meq O ONE Administration - Urinary Catheter Management Urethral Cath placed during this visit: no Results 09/04/17 04:50 09/04/17 04:50 CBC 09/04/17 Range/Units 04:50 WBC 8.4 (4.5-11.0) T/MM3 RBC 3.42 L (4.00-5.20) M/MM3 Hgb 10.4 L (12-16) GM/DL Hct 32.9 L (36-46) % Plt Count 263 (130-400) T/MM3 Neut # (Auto) 5.3 (1.8-7.7) T/MM3 Lymph # (Auto) 2.0 (1-4.8) T/MM3 [place] # (Auto) 0.6 (0-0.8) T/MM3 Eos # (Auto) 0.4 (0-0.5) T/MM3 Baso # (Auto) 0.1 (0-0.2) T/MM3 Comprehensive Metabolic Panel 09/04/17 Range/Units 04:50 Sodium 143 (134-144) MEQ/L Potassium 4.1 (3.6-5) MEQ/L Chloride 105 (98-107) MEQ/L Carbon Dioxide 27 (22-30) MEQ/L BUN 20.0 H (7-17) MG/DL Creatinine 0.9 (0.7-1.2) mg/dL Glucose 123 H (65-110) MG/DL Calcium 9.2 (8.4-10.2) MG/DL Intake and Output 09/03/17 09/04/17 09/04/17 22:59 06:59 14:59 Intake Total 50 / 50 Output Total 175 / 175 Balance 50 / 50 -175 / -175 Intake: Oral 50 / 50 Output: Urine Amount (Catheter) 175 / 175 Other: Urine Appearance Clear Urine Color Dark Dede Weight 61.9 kg Patient Weight 09/05/17 06:59 Weight 61.9 kg Assessment and Plan - Assessment and Plan (1) Atrial fibrillation with RVR Current visit: Yes Status: Acute (2) Atherosclerotic heart disease of [place] coronary artery without angina pectoris Current visit: Yes Status: Chronic (3) Nonrheumatic aortic valve stenosis Current visit: Yes Status: Chronic (4) Syncope and collapse Current visit: Yes Status: Chronic (5) Hypotension Current visit: Yes Status: Chronic (6) Type 2 diabetes mellitus without complications Current visit: Yes Status: Chronic (7) Diastolic CHF Current visit: Yes Status: Acute - Attestation Attestation Narrative: 09/04/17 13:32 Recommendation After examining the patient I agree with the above assessment. I am involved in the formulation of the patient's plan of care. Hospital Course Summary Disclaimer: The visit summary below is not to be considered part of the above Progress Note.
[2017-08-27] MEDS ORDERED: DOCUSATE SODIUM 100 MG CAPSULE PO PRN (13:57)
[2017-08-27] MEDS: INSULIN ASPART 100unit/ml INJECTION SQ PRN ×2 (14:02→16:06)
[2017-08-27] MEDS: LIDOCAINE 1% (10mg/ml) 5ml PF SDV IJ SCH (14:18)
[2017-08-27] MEDS: CEFTRIAXONE 1 G in NS 100 ML IV SCH (15:54)
--- NOTE | 2017-08-27 16:50 | CT Scan Report ---
Indication: abd pain, left sided PROCEDURE: CT abdomen pelvis wo con: Encounter: Initial Comparison: None Technique: Axial CT images were performed through the abdomen and pelvis without intravenous contrast. Coronal and sagittal two-dimensional reformats. Automated Exposure Control and Iterative Reconstruction dose reducing techniques were utilized. Findings: Areas of patchy airspace opacity and fine nodularity in both lower lobes with small pleural effusions. The unenhanced contours of the liver are unremarkable. Mitral valvular and coronary artery calcifications. The gallbladder is surgically absent. The spleen is normal. The unenhanced contours of the pancreas are normal. Mild adenomatous hyperplasia of both adrenal glands. Right kidney is malrotated. Left kidney shows parapelvic cysts. No gross hydronephrosis or obvious renal mass. No abdominal or pelvic lymphadenopathy. Scattered arterial atherosclerotic plaque. Small duodenal diverticulum. The bladder is decompressed with a Ramirez catheter. The uterus is absent. No evidence of a bowel obstruction. Moderate colonic diverticulosis without evidence of acute diverticulitis. Small areas of subcutaneous gas in the lower abdomen probably representing injection sites. Impression: Lower lobe pneumonia or aspiration. No acute disease process seen in the abdomen or pelvis. .
[2017-08-28] MEDS: MIDODRINE 5 MG TABLET PO SCH ×3 (06:16→17:38)
[2017-08-28] MEDS: LEVOTHYROXINE 50 MCG TABLET PO SCH (06:17)
[2017-08-28] MEDS: ASPIRIN *EC* 81 MG TABLET PO SCH (09:37)
[2017-08-28] MEDS: AMIODARONE 200 MG TABLET PO SCH (09:37)
[2017-08-28] MEDS: CLOPIDOGREL 75 MG TABLET PO SCH (09:37)
[2017-08-28] MEDS: ENOXAPARIN 40 MG/0.4 ML INJECTION SQ SCH (09:37)
[2017-08-28] MEDS: SALINE 0.65% NASAL SPRAY 44 ML BOTTLE EA NOSTRIL SCH ×4 (09:38→21:07)
[2017-08-28] MEDS: MEMANTINE 10 MG TABLET PO SCH ×2 (09:38→21:06)
[2017-08-28] MEDS: POLYETHYL GLYCOL 3350 17gm PACKET PO SCH (09:38)
--- NOTE | 2017-08-28 10:59 | Progress Note ---
- Date 08/28/17 Subjective: Naseem is seen today in follow up. She is up in a chair, opens eyes and will talk to me, but is very confused. Drifts off to sleep easily. No acute c/o reported. Chart is reviewed for collateral information. Objective Vital signs: Temperature 98.0 F 08/28/17 08:00 Pulse Rate 68 08/28/17 08:00 Respiratory Rate 18 08/28/17 08:00 Blood Pressure 112/55 08/28/17 08:00 Pulse Oximetry 95 08/28/17 08:00 Rhythm: Atrial Fibrillation with Normal Ventricular Rate Height/Weight/BMI: Height 1.65 m Weight 62.2 kg Body Mass Index 25.2 - Constitutional Present: no acute distress, average body habitus, cooperative - Routine HEENT Exam Head: Present: normocephalic, atraumatic Eye: Present: PERRL. Absent: periorbital swelling - Routine Respiratory Exam Present: decreased breath sounds. Absent: dyspnea, rales, rhonchi, wheezes, crackles - Routine Cardiovascular Exam Present: RRR, S1, S2, murmur - Routine Abdominal Exam Present: soft, normoactive bowel sounds, non distended, non tender - Routine Exam Comments: Ramirez- Clear yellow urine - Routine Extremities Exam Present: no edema, pulses intact. Absent: cyanosis, clubbing - Routine Musculoskeletal Exam Musculoskeletal: Present: moving extremities well - Routine Skin Exam Present: intact, dry, warm - Routine Neurological Exam Present: moving all extremities - Routine Psychiatric Exam Present: cooperative (Remains a bit somnolent). Absent: normal affect, good insight, good judgment Results - Labs CBC & Chem 7: 08/28/17 03:59 08/28/17 03:59 Microbiology Results: Microbiology 08/25/17 15:20 Urine, Cath Ramirez Urine Culture - Final Rosalba albicans - Imaging and Cardiology CT scan - abdomen Additional comments: CT A/P Findings: Areas of patchy airspace opacity and fine nodularity in both lower lobes with small pleural effusions. The unenhanced contours of the liver are unremarkable. Mitral valvular and coronary artery calcifications. The gallbladder is surgically absent. The spleen is normal. The unenhanced contours of the pancreas are normal. Mild adenomatous hyperplasia of both adrenal glands. Right kidney is malrotated. Left kidney shows parapelvic cysts. No gross hydronephrosis or obvious renal mass. No abdominal or pelvic lymphadenopathy. Scattered arterial atherosclerotic plaque. Small duodenal diverticulum. The bladder is decompressed with a Ramirez catheter. The uterus is absent. No evidence of a bowel obstruction. Moderate colonic diverticulosis without evidence of acute diverticulitis. Small areas of subcutaneous gas in the lower abdomen probably representing injection sites. Impression: Lower lobe pneumonia or aspiration. No acute disease process seen in the abdomen or pelvis. . Assessment and Plan (1) Sepsis Current visit: Yes Status: Acute Assessment and Plan: Assessment Sepsis secondary to UTI as indicated by tachycardia, fever, altered level of consciousness and hypotension. UTI - Recurrent, frequent -- E coli growing from culture 08/14/17 Chronic urinary retention--Indwelling Ramirez - since 02/2017 - changed 08/15/17. Encephalopathy -secondary to sepsis and UTI Pulmonary edema Bilateral pleural effusions - 08/18/17 Acute hypoxic respiratory insufficiency secondary to pulmonary edema Hypernatremia (not POA) Hypokalemia (not POA) Generalized weakness and debility - Acute due to illness Paroxysmal atrial fibrillation Developed RVR 08/18 S/P Cardioversion on 08/19 A-fib 08/25 Severe aortic stenosis Orthostatic hypotension Diabetes mellitus, type 2 CAD H/O Chronic kidney disease, stage III. Hypothyroidism Dementia Chronic constipation Osteoarthritis Hx DVT Hx CVA- 2011 Obstipation Plan 08/28/17 *CT completed yesterday- possible LLL pneumonia. No intra-abdominal pathology She is not symptomatic, and not febrile. Mild bump in WBC since taken off Ceftriaxone yesterday. Will hold off on restarting abx- Repeat CXR and Labs in AM and monitor for fever. *Weight has stabilized with decrease in IVF. She does not appear overloaded at this time. Will monitor closely due to severe A.S., risk of pulmonary edema. Labs do look a bit better today. She is still not taking much in by mouth. HR is controlled- continue current. Remains in SR at this time. Continue low dose Midodrine for BP support. She remains confused, weak, and deconditioned. DC planning- May benefit from SNU ? DVT Prophylaxis: SCD's, Lovenox Resuscitation Status: Do Not Resuscitate - Physician Narrative Physician: Jolene Box MD Narrative: Date: 08/28/17 Time: 1650 I have independently evaluated and examined this patient. I reviewed the chart, the patient's history, and the EXERCISE EQUIPMENT SPECIALIST/PA's documented findings as above. We discussed and formulated the assessment and plan as above with additions as below: Mrs. La was seen earlier this morning; family was not present at the time. The patient was sitting up in bedside chair with breakfast present but she had not eaten anything and reported that she wasn't hungry. She was pleasant and denied pain or difficulty breathing at the time of my assessment and drifted back to sleep as soon as I wasn't asking her questions. Respirations nonlabored, diminished breath sounds throughout, abdomen soft and nontender today CT abdomen and pelvis reviewed by myself-small pleural effusions at the lung bases bilaterally with some adjacent compressive atelectasis and questionable infiltrate. No evidence of pancreatitis or diverticulitis although diverticuli are present; atherosclerotic plaque present, no evidence of bowel obstruction or other acute pathology. Discontinue ceftriaxone as was intended yesterday but apparently overlooked. Has completed 14 days of antibiotics between initial cefepime for 4 days followed by ceftriaxone for 11 days. Unclear that there is any significance to the findings at the base of the lungs on CT-chest x-ray in the morning; could consider trial of Augmentin or clindamycin as patient is at risk for aspiration with excessive somnolence. Fluctuating white count consistent with intermittent aspiration. Hospital Course Summary Disclaimer: The visit summary below is not to be considered part of the above Progress Note. Hospital Course: 08/15/[facility] of Dr. Martinez. 1L NS initiated in ED. Will continue NS 100cc/hr for hydration. Cefepime 1g IV given in ED. Continue empiric coverage for urinary pathogens with Cefepime IV Q6H. UA culture from 08/14/17 revealing gram negative rods. Monitor for sensitives and new UA culture results. Blood culture obtained and results pending. Monitor closely on telemetry. Continue home medications. Monitor blood pressure closely. Monitor daily weight and urinary output closely for signs of fluid overload. Renal function stable. Upon discharge, patient's care will be returned to Dr Caballero. Patient is a DNR. 08/17/17 Sepsis secondary to UTI as indicated by tachycardia, fever, altered level of consciousness and hypotension. -IVF -Repeat lactate-normalized -Mental status improving UTI -Recurrent, frequent -Indwelling Ramirez- since 02/2017 - changed 08/15/17. -On cefepime -Bl cx NGTD -Urine cx from 08/15 NGTD, the one done on 08/14 growing E. coli sensitive to cefepime Altered level of consciousness. -This is usual for her when she gets an UTI per daughter -She does have underlying dementia -This is improved today Generalized weakness and debility. -Due to UTI -consult PT PAF -Not on OAC -Metoprolol 25mg q6hr prn started by nighttime MD -With her hypotension, she may not tolerate this. -Will try low dose digoxin and monitor History of CVA - 2011. -On aspirin and Plavix Dementia. -On Namenda XR Hypothyroid -continue levothyroxine -Last free T4 1.84 in November 2016 Severe aortic stenosis. -SKYE 0.7cm2 per 08/2016 Orthostatic hypotension -Continue midodrine History of DVT to left arm. -S/P Mechanical clot removal Diabetes mellitus, type 2. -Continue Janumet -Last A1C I can find was in november 2016 and was 5.3% Constipation. -On Colace daily H/O Chronic kidney disease, stage III. -Creatinine normal here and I do not see any elevations in recent history CAD -H/O stents 2016 -HC 08/2016 showing LVEF 65%, SKYE 0.7cm2, 70-80% LAD, 30% LCx, 70-75% RCA -CHRIS to RCA 09/2016 -CHRIS to LAD 01/2017 Hypothyroidism. -Continue levothyroxine Osteoarthritis. 08/18/17 Oxygen needs continue to increase. Chest X-ray this morning does revel small bilateral pleural effusions and pulmonary edema. Lasix 40 mg IV x1 given this morning, will give repeat 40mg IV Lasix this evening. IVF stopped. Continue to monitor urinary output via Ramirez cath (chronic- changed 08/15) Trend daily weights. she is up 5 Kg from admission Change cefepime for ceftriaxone for treatment of Ecoli UTI. Continue to monitor Accu-Cheks Recheck CBC in am due to UTI/Resolving sepsis. Will recheck BMP in am secondary to Lasix use. Lovenox subcutaneous daily for DVT prophylaxis 08/19/17 Transferred to CCU overnight secondary to Afib with RVR, diltiazem drip started. HR showing improvement. Will consult with Dr Vanessa for treatment recommendations for afib. Digoxin level slightly subtherapeutic at 0.7 - could be increased. Will continue with Rocephin for urinary coverage. Lasix 20mg IV x1 to help mobilize pulmonary edema. Will recheck CXR in am. Weight trending down. Output increased with Lasix yesterday. Continue with supplemental O2, weaning as able. Encourage oral intake. 08/20/17 Will start KCL bolus at 50cc/hr as potassium with significant decrease due to Lasix. Weight with decreased. CXR without change, but O2 sats improved with less O2 flow (3L). Continue ceftriaxone for urinary coverage. Encouraging that oral drive increasing. Likely transfer to medical floor later today. Will have PT/OT restart work tomorrow. 08/21/17 CXR showing gradual improvement. O2 needs decreasing (down to 2L, and weaning). Creatinine stable. Potassium improved to 3.7. Will decrease IV Lasix to 40mg twice a day - worry for overdiuresis with patients decreased oral drive. Diamox 500mg x1 as CO2 increasing. Encourage oral intake. Encourage activities with therapy. Will continue Rocephin for urinary coverage. 08/22/17 Continued improvement in CXR and O2 need. Patient still somnolent. Nursing working on increasing bowel motivation. Weight with decrease and creatinine increased to 1.3 -- will stop IV Lasix. Continue Rocephin. Encourage activities and therapy. 08/23/17 Patient still somnolent. Leukocytosis increasing 9.8-->11.9-->13.1 despite continuation of ceftriaxone for UTI (+ sensitivity for ceftriaxone on C&S). Check CXR. Remains in NSR at this time. Continues amiodarone . Cardiology following. Patient with minimal intake. Is on fluid restriction d/t recent fluid overload , but pt isn't taking much po. May consider IVF's if she isn't taking more p.o. 08/24/17 Patient remains somnolent but oral intake is improved today and she is acknowledging examiner also improved from yesterday. Will attempt to get patient up in chair today; PT/OT can attempt ambulation tomorrow. Leukocytosis improved today-may have aspirated with emesis 2 days ago but no indication of aspiration pneumonitis by x-ray. Day 7 ceftriaxone for UTI. Sodium up to 147, BUN up further today. Conjunction with poor oral intake and laboratory signs of dehydration will hydrate with 1 L 1/2 NS. Remains in sinus rhythm by my review of telemetry and exam. Persistent encephalopathy-increase activity as tolerates. Avoid sedating medications. Continue vitamin B 12-will resume oral administration at discharge. Blood sugars stable; blood pressure borderline low-reassess after fluids. 08/25/17 Somnolent, confused. Poor intake with supper last night. Persistent hypernatremia with mild improvement. BUN also improved. Tele reviewed - shows A-fib with normal rate. She went into a-fib around 0500. Hypotension with BP 87/59, UO overall poor over the last few days - give NS 250 mL bolus. CXR from 08/23 reviewed - pulm edema noted; will need to monitor resp status/sats closely. Rocephin day #8 for E. coli UTI. Repeat UC from 08/15 was neg. 08/26/17 Continues to be somnolent, confused. Poor intake. Persistent hypernatremia. Daughter ok with placing midline and starting IVF's. UA, performed yesterday d/t somnolence and questionable abdominal pain, + for leuks and bacteria. Urine culture pending.Rocephin day #9 for E. coli UTI. 08/27/17 Repeat UC from 08/25 was positive for rosalba. Will DC Rocephin, s/p 9 days of treatment. Change Ramirez. Na remains elevated at 146 despite starting 1/2NS yesterday. BUN decreased from 43 to 40. Weight is starting to increase; need to monitor closely for pulmonary edema as she required diuresis earlier in her hospital course. Reduce rate of IVF. PAF - continue increased dose of amiodarone. Currently in sinus. Continue therapy as able; pt is limited cognitively and physically. 08/28/17 *CT completed yesterday- possible LLL pneumonia. No intra-abdominal pathology She is not symptomatic, and not febrile. Mild bump in WBC since taken off Ceftriaxone yesterday. Will hold off on restarting abx- Repeat CXR and Labs in AM and monitor for fever. *Weight has stabilized with decrease in IVF. She does not appear overloaded at this time. Will monitor closely due to severe A.S., risk of pulmonary edema. Labs do look a bit better today. She is still not taking much in by mouth. HR is controlled- continue current. Remains in SR at this time. Continue low dose Midodrine for BP support. She remains confused, weak, and deconditioned. DC planning- May benefit from SNU ? Addendum entered and electronically signed by Parul Persaud APRN 08/28/17 11:11 : Correction: Patient remains on Ceftriaxone. DC soon and monitor? [id number].
[2017-08-28] MEDS: 1/2 NS 1,000 ML IV SCH (13:50)
--- NOTE | 2017-08-28 16:29 | Cardiology Progress Note ---
<Sandra Guevara M - Last Filed: 08/29/17 10:29> Subjective Principal diagnosis: AFib RVR Interval history: Margarita is seen in follow up for AFib with RVR. She just got back into bed from the recliner by lift. She reports pain, when asked where, she replies, "my back. " When asked about chest and abdominal pain, she replies "yes." She appears comfortable and is in no distress. Exam Vital signs: Temperature 97.3 F 08/28/17 16:00 Pulse Rate 66 08/28/17 16:00 Respiratory Rate 18 08/28/17 16:00 Blood Pressure 103/58 08/28/17 16:00 Pulse Oximetry 96 08/28/17 16:00 Inpatient Medications: Generic Name Dose Route Start Last Admin Trade Name Freq PRN Reason Stop Dose Admin Acetaminophen 650 mg 08/15/17 19:04 08/22/17 08:28 Tylenol PO 650 mg Q5H PRN Administration Discomfort Amiodarone HCl 200 mg 08/26/17 09:00 08/28/17 09:37 Pacerone PO 200 mg DAILY [facility] Administration Aspirin 81 mg 08/16/17 09:00 08/28/17 09:37 Ecotrin PO 81 mg DAILY [facility] Administration Bisacodyl 10 mg 08/22/17 17:05 Dulcolax RECTALLY DAILY PRN Constipation Clopidogrel Bisulfate 75 mg 08/17/17 09:00 08/28/17 09:37 Plavix PO 75 mg DAILY [facility] Administration Cyanocobalamin 1,000 mcg 08/17/17 09:00 08/24/17 08:59 Vit. B-12 IM 1,000 mcg [place] [facility] Administration Dextrose 10 ml 08/24/17 21:50 D50%W IVP PRN PRN Hypoglycemia Docusate Sodium 100 mg 08/27/17 13:57 Colace PO DAILY PRN Enoxaparin Sodium 40 mg 08/17/17 04:00 08/28/17 09:37 Lovenox SQ 40 mg DAILY [facility] Administration Glucose 37.5 gm 08/24/17 21:50 Glutose 15 PO PRN PRN Hypoglycemia Sodium Chloride 1,000 mls @ 60 mls/hr 08/26/17 12:45 08/28/17 13:50 1/2 Normal Saline IV 60 mls/hr .[id number] [facility] Administration Ceftriaxone Sodium 1 g/ Sodium 100 mls @ 200 mls/hr 08/26/17 16:15 08/27/17 16:25 Chloride IV Infused Q24H [facility] Infusion Insulin Aspart 1 - 5 unit 08/24/17 21:50 08/27/17 16:06 Novolog SQ 2 unit SS PRN Administration Hyperglycemia Protocol Levothyroxine Sodium 50 mcg 08/18/17 06:30 08/28/17 06:17 Synthroid PO 50 mcg ACB [facility] Administration Lidocaine HCl 21 mg 08/25/17 14:30 08/27/17 14:18 Xylocaine-Mpf 1% Vial IJ Not Given Q24H [facility] Memantine 10 mg 08/16/17 09:00 08/28/17 09:38 Namenda PO 10 mg BID [facility] Administration Midodrine 5 mg 08/18/17 11:00 08/28/17 14:32 Proamatine PO 5 mg 0700,1100,1500 [facility] Administration Pom Janumet 50-500 1 tab 08/26/17 09:45 08/26/17 14:55 PO 1 tab DAILY [facility] Administration Ondansetron HCl 4 mg 08/15/17 19:04 08/23/17 09:42 Zofran IVP 4 mg Q6H PRN Administration Nausea &/or vomiting Polyethylene Glycol 17 gm 08/21/17 09:00 08/28/17 09:38 Miralax PO Not Given DAILY [facility] Senna/Docusate Sodium 1 tab 08/15/17 19:04 08/26/17 09:59 Senna Plus Tablet PO 1 tab BID PRN Administration Constipation Sodium Chloride 10 - 80 ml 08/15/17 15:23 08/26/17 15:57 Iv Flush IVF 10 ml PRN PRN Administration [place] Sodium Chloride 500 ml 08/15/17 15:35 08/21/17 02:54 Normal Saline IV 500 ml PRN PRN Administration Sodium Chloride 10 ml 08/15/17 19:04 08/24/17 15:09 Iv Flush IV 10 ml PRN PRN Administration [place] Sodium Chloride 2 spray 08/18/17 18:44 08/28/17 14:37 Deep Sea Nasal Moisturizing [place] EA NOSTRIL Not Given QID [facility] Sodium Phosphate 1 enema 08/22/17 10:[address] PRN PRN Discontinued Medications Generic Name Dose Route Start Last Admin Trade Name Freq PRN Reason Stop Dose Admin Acetaminophen 650 mg 08/15/17 19:[address] Q5H PRN Pain Acetazolamide 500 mg 08/21/17 12:26 08/21/17 14:27 Diamox PO 08/21/17 12:27 500 mg O ONE Administration Amiodarone HCl 100 mg 08/19/17 15:30 08/25/17 08:48 Pacerone PO Not Given DAILY [facility] Amiodarone HCl 150 mg 08/21/17 02:24 08/21/17 02:56 Amiodarone IV 08/21/17 02:25 150 mg O ONE Administration Ceftriaxone Sodium 1 g 08/25/17 14:30 08/26/17 14:56 Rocephin 1 Gm Vial IM Not Given Q24H [facility] Clopidogrel Bisulfate 75 mg 08/16/17 09:00 08/16/17 08:31 Plavix PO 75 mg DAILY [facility] Administration Cyanocobalamin 5,000 mcg 08/16/17 09:00 08/16/17 09:26 Vit. B-12 PO 5,000 mcg DAILY [facility] Administration Cyanocobalamin 0 mcg 08/17/17 09:00 Vit. B-12 PO DAILY [facility] Digoxin 125 mcg 08/17/17 12:00 08/19/17 08:57 Lanoxin PO 125 mcg DAILY [facility] Administration Digoxin 500 mcg 08/21/17 02:24 08/21/17 02:54 Lanoxin IVP 08/21/17 02:25 500 mcg O ONE Administration Diltiazem HCl 10 mg 08/18/17 21:55 08/18/17 22:19 Cardizem 25 Mg Inj IVP 08/18/17 21:56 10 mg O ONE Administration Docusate Sodium 100 mg 08/16/17 09:00 08/27/17 10:26 Colace PO 100 mg DAILY [facility] Administration Furosemide 40 mg 08/18/17 12:16 08/18/17 12:26 Lasix 40 Mg/4 Ml IVP 08/18/17 12:17 40 mg Q6HR ONE Administration Furosemide 40 mg 08/18/17 20:00 08/18/17 20:44 Lasix 40 Mg/4 Ml IVP 08/18/17 20:01 40 mg ONE TIME ONE Administration Furosemide 20 mg 08/19/17 10:19 08/19/17 10:31 Lasix 20 Mg/2 Ml IVP 08/19/17 10:20 20 mg ONCE ONE Administration Furosemide 40 mg 08/19/17 17:00 08/20/17 11:15 Lasix 40 Mg/4 Ml IVP 40 mg Q8HR [facility] Administration Furosemide 40 mg 08/20/17 22:00 08/22/17 07:02 Lasix 40 Mg/4 Ml IVP 40 mg 0600,1400,2200 [facility] Administration Cefepime HCl 1 gm/ Sodium 100 mls @ 200 mls/hr 08/15/17 15:23 08/15/17 16:20 Chloride IV 08/15/17 15:52 Infused O ONE Infusion Sodium Chloride 1,000 mls @ 1,000 mls/hr 08/15/17 15:23 08/15/17 17:07 Normal Saline IV 08/15/17 16:22 Infused .Q1H ONE Infusion Sodium Chloride 1,000 mls @ 100 mls/hr 08/15/17 19:15 08/18/17 11:37 Normal Saline IV Infused .Q10H [facility] Infusion Cefepime HCl 1 gm/ Sodium 100 mls @ 200 mls/hr 08/15/17 21:30 08/18/17 10:03 Chloride IV Infused Q6H [facility] Infusion Sodium Chloride 500 mls @ 500 mls/hr 08/15/17 22:59 08/15/17 23:20 Normal Saline IV 08/15/17 23:58 Not Given .Q1H ONE Cefepime HCl 1 gm/ Sodium 100 mls @ 200 mls/hr 08/18/17 16:00 Chloride IV Q6H [facility] Ceftriaxone Sodium 1 g/ Sodium 100 mls @ 200 mls/hr 08/18/17 14:45 08/24/17 15:42 Chloride IV Infused Q24H [facility] Infusion Diltiazem HCl 125 mg/ Sodium 125 mls @ 5 mls/hr 08/18/17 23:00 08/19/17 13:52 Chloride IV 0 mls/hr .Q24H [facility] Infusion Protocol Amiodarone HCl 450 mg/ Sodium 250 mls @ 33.33 mls/hr 08/19/17 12:00 08/19/17 18:00 Chloride IV 08/19/17 18:00 0.99 mg/min .Q7H31M [facility] 33.33 mls/hr 1 MG/MIN Infusion Amiodarone HCl 900 mg/ Sodium 500 mls @ 16.66 mls/hr 08/19/17 18:00 Chloride IV .Q24H [facility] 0.5 MG/MIN Amiodarone HCl 150 mg/ Sodium 103 mls @ 618 mls/hr 08/19/17 11:57 08/19/17 12 :52 Chloride IV 08/19/17 12:06 Infused O ONE Infusion Potassium Chloride 10 meq in 100 mls @ 100 mls/hr 08/20/17 05:37 08/20/17 08: 07 Potassium Chloride Premix IV 08/20/17 06:36 Infused O ONE Infusion Lidocaine HCl 10 mg/ Potassium 100 mls @ 50 mls/hr 08/20/17 10:30 08/20/17 19 :55 Chloride 10 meq/ Sodium IV 08/20/17 18:57 Infused Chloride .Q2H [facility] Infusion Sodium Chloride 1,000 mls @ 75 mls/hr 08/24/17 15:45 08/25/17 05:40 1/2 Normal Saline IV 08/25/17 05:04 Infused .[id number] [facility] Infusion Sodium Chloride 1,000 mls @ 250 mls/hr 08/25/17 08:45 08/25/17 09:40 Normal Saline IV 08/25/17 09:44 Not Given .Q4H [facility] Levothyroxine Sodium 50 mcg 08/16/17 06:30 08/17/17 05:58 Synthroid PO 50 mcg ACB [facility] Administration Lidocaine HCl 2.1 mg 08/25/17 14:30 Xylocaine-Mpf 1% Vial IJ Q24H [facility] Metoprolol Tartrate 25 mg 08/17/17 03:29 08/17/17 03:59 Lopressor PO 25 mg Q6H PRN Administration Midodrine 5 mg 08/15/17 21:00 08/17/17 08:59 Proamatine PO 5 mg TID [facility] Administration Midodrine 5 mg 08/17/17 09:00 08/18/17 09:28 Proamatine PO 08/18/17 10:00 5 mg TID [facility] Administration Non-Formulary Medication 5,000 mcg 08/16/17 09:00 Cyanocobalamin (Vitamin B-12) [B-12] SL DAILY [facility] Non-Formulary Medication 28 mg 08/16/17 09:00 Memantine Hcl [Namenda Xr] PO DAILY [facility] Non-Formulary Medication 1 tab 08/15/17 21:00 Sitagliptin Phos/Metformin Hcl [Janumet 50-500 Mg Tablet] PO BID [facility] Pharmacy Consult 1 each 08/21/17 22:40 Pharmacy Consult - Fall Risk [facility] 08/21/17 22:41 ONE TIME ONE Potassium Chloride 40 meq 08/19/17 15:36 K-Dur 20 Meq Tablet PO 08/19/17 15:37 O ONE Potassium Chloride 40 meq 08/20/17 05:37 08/20/17 05:44 K-Dur 20 Meq Tablet PO 08/20/17 05:38 40 meq O ONE Administration Potassium Chloride 20 meq 08/20/17 17:30 08/22/17 12:14 K-Dur 20 Meq Tablet PO 20 meq TIDWM [facility]A Administration - Constitutional no acute distress, well nourished, cooperative - Routine HEENT Exam Head: Present: normocephalic ENT: Present: mucous membranes moist - Routine Neck Exam Absent: JVD, carotid bruit - Routine Chest/Breast/Axilla Exam Chest wall: Present: tenderness - Routine Respiratory Exam Present: decreased breath sounds (anteriorly). Absent: rales, wheezes - Routine Cardiovascular Exam Present: RRR, murmur (II/) - Routine Abdominal Exam Present: soft, tenderness - Routine Extremities Exam Present: no edema - Routine Skin Exam Present: intact, dry, warm, ecchymosis (UEs) - Routine Neurological Exam Present: alert - Routine Psychiatric Exam Present: cooperative - Urinary Catheter Management Urethral Cath placed during this visit: yes, but has since been removed by the nurse Insertion date: 08/21/17 Insertion time: 12:30 Removal date: 08/21/17 Removal time: 12:00 Results 08/29/17 04:16 08/29/17 04:16 CBC 08/28/17 Range/Units 03:59 WBC 11.8 H (4.5-11.0) T/MM3 RBC 3.37 L (4.00-5.20) M/MM3 Hgb 10.2 L (12-16) GM/DL Hct 32.7 L (36-46) % Plt Count 357 (130-400) T/MM3 Neut # (Auto) 8.6 H (1.8-7.7) T/MM3 Lymph # (Auto) 1.9 (1-4.8) T/MM3 [place] # (Auto) 0.8 (0-0.8) T/MM3 Eos # (Auto) 0.5 (0-0.5) T/MM3 Baso # (Auto) 0.0 (0-0.2) T/MM3 Comprehensive Metabolic Panel 08/28/17 Range/Units 03:59 Sodium 140 D (134-144) MEQ/L Potassium 4.0 (3.6-5) MEQ/L Chloride 104 (98-107) MEQ/L Carbon Dioxide 29 (22-30) MEQ/L BUN 24.0 H (7-17) MG/DL Creatinine 0.7 (0.7-1.2) mg/dL Glucose 107 (65-110) MG/DL Calcium 8.8 (8.4-10.2) MG/DL Intake and Output 08/28/17 08/28/17 08/28/17 06:59 14:59 22:59 Intake Total 60 / 60 1118 / 1118 Output Total 250 / 250 350 / 350 Balance -190 / -190 768 / 768 Intake: IV 1000 / 1000 1/2 Ns 1,000 ml @ 60 mls/hr IV 1000 / 1000 .[id number] [facility] Rx#:[id number] Oral 60 / 60 118 / 118 Output: Urine Amount (Catheter) 250 / 250 350 / 350 Other: Urine Appearance Clear Urine Color Dark [place] Urine Odor Strong Stool Color Brown Brown Brown Yellow Stool Consistency Liquid Soft Soft Size of Bowel Movement Small Small # Bowel Movements 1 # Incontinent Bowel Movements 1 Weight 137 lb 2.04 oz Patient Weight 08/29/17 06:59 Weight 137 lb 2.04 oz - Imaging and Cardiology Imaging & Cardiology Narrative: Date of Exam: 08/27/17 Ordering Provider: Jolene Box MD Type of Exam(s): CT abdomen pelvis wo con Reason for Exam(s): abd pain, left sided Indication: abd pain, left sided PROCEDURE: CT abdomen pelvis wo con: Encounter: Initial Comparison: None Technique: Axial CT images were performed through the abdomen and pelvis without intravenous contrast. Coronal and sagittal two-dimensional reformats. Automated Exposure Control and Iterative Reconstruction dose reducing techniques were utilized. Findings: Areas of patchy airspace opacity and fine nodularity in both lower lobes with small pleural effusions. The unenhanced contours of the liver are unremarkable. Mitral valvular and coronary artery calcifications. The gallbladder is surgically absent. The spleen is normal. The unenhanced contours of the pancreas are normal. Mild adenomatous hyperplasia of both adrenal glands. Right kidney is malrotated. Left kidney shows parapelvic cysts. No gross hydronephrosis or obvious renal mass. No abdominal or pelvic lymphadenopathy. Scattered arterial atherosclerotic plaque. Small duodenal diverticulum. The bladder is decompressed with a Ramirez catheter. The uterus is absent. No evidence of a bowel obstruction. Moderate colonic diverticulosis without evidence of acute diverticulitis. Small areas of subcutaneous gas in the lower abdomen probably representing injection sites. Impression: Lower lobe pneumonia or aspiration. No acute disease process seen in the abdomen or pelvis. 08/28/17 16:30 Assessment and Plan - Assessment and Plan (1) Atrial fibrillation with RVR Status: Acute (2) Atherosclerotic heart disease of [place] coronary artery without angina pectoris Status: Chronic (3) Nonrheumatic aortic valve stenosis Status: Chronic (4) Syncope and collapse Status: Chronic (5) Hypotension Status: Chronic (6) Type 2 diabetes mellitus without complications Status: Chronic (7) Diastolic CHF Status: Acute - Assessment and Plan 08/19/17 A Fib with RVR: History of PAF, asymptomatic - Takes Amiodarone 100mg daily, not given this admission - Amiodarone bolus and drip - Npo for possible DCCV - Converted to SR - Resume home Amiodarone 100mg PO daily and stop IV - EKG now - Stop Digoxin. - Check TSh and Mag DCHF: Diurese with Lasix 40mg IV q8h - CXR: Diffuse airspace opacities throughout both lungs. Probable small bilateral pleural effusions. Close interval follow-up is recommended. - K+ 3.3, replace CAD: Stable. continue current therapy, routine monitoring. - Continue Aspirin and Plavix Hypotension: Continue Midodrine Thank you for allowing us to participate in the care of this patient. 08/20/17 AFib:Continue home dose Amiodarone 100mg daily - Not a candidate for [facility] anticoagulation due to age and fall risk DCHF: Diuresing well. - CXR: No significant change in diffuse bilateral airspace disease which could represent edema, pneumonia, massive aspiration or pulmonary hemorrhage. - Continue Lasix 40mg IV q8h - K+ 2.9, Replace K+ 20meq po with meals TID - TSH, Mag WNL - Monitor renal and electrolytes 08/21/17 Went back into AFib overnight. - Given 150mg IV Amiodarone bolus and Digoxin 500mcg - Converted back this afternoon to SR - Continue Amiodarone at 100mg daily CXR: Overall slight improvement in appearance of the chest may be due to resolving edema. - Continue diuresis - Monitor renal and electrolytes 08/22/17 BUN/SCr 39/ 1.3, NA 145 today, K+ 4.2 - Diuretic stopped by attending - Stop K+ replacement CXR: Impression: Continued improvement in pulmonary edema. 08/25/17 Accurate I & O please, need to watch fluid balance closely with patient's and history of hypotension. - Monitor renal and electrolytes - CXR 08/23/17: Stable to slightly improved appearance of the lungs. 08/26/17 Increased Amiodarone to 200mg daily for better control of PAF 08/27/17 Telemetry remains SR Closely monitor Fluid balance due to . - weight increasing - IVF/ rate per hospitalist 08/28/17 NA 140 today, BUN improving, weight up 3# - Accurate daily weights please Hospital Course Summary Disclaimer: The visit summary below is not to be considered part of the above Progress Note. Hospital Course: [facility]15[facility] Dr. Martinez. 1L NS initiated in ED. Will continue NS 100cc/hr for hydration. Cefepime 1g IV given in ED. Continue empiric coverage for urinary pathogens with Cefepime IV Q6H. UA culture from 08/14/17 revealing gram negative rods. Monitor for sensitives and new UA culture results. Blood culture obtained and results pending. Monitor closely on telemetry. Continue home medications. Monitor blood pressure closely. Monitor daily weight and urinary output closely for signs of fluid overload. Renal function stable. Upon discharge, patient's care will be returned to Dr Caballero. Patient is a DNR. 08/17/17 Sepsis secondary to UTI as indicated by tachycardia, fever, altered level of consciousness and hypotension. -IVF -Repeat lactate-normalized -Mental status improving UTI -Recurrent, frequent -Indwelling Ramirez- since 02/2017 - changed 4/27/18. -On cefepime -Bl cx NGTD -Urine cx from 08/15 NGTD, the one done on 08/14 growing E. coli sensitive to cefepime Altered level of consciousness. -This is usual for her when she gets an UTI per daughter -She does have underlying dementia -This is improved today Generalized weakness and debility. -Due to UTI -consult PT PAF -Not on OAC -Metoprolol 25mg q6hr prn started by nighttime MD -With her hypotension, she may not tolerate this. -Will try low dose digoxin and monitor History of CVA - 2011. -On aspirin and Plavix Dementia. -On Namenda XR Hypothyroid -continue levothyroxine -Last free T4 1.84 in November 2016 Severe aortic stenosis. -SKYE 0.7cm2 per HC 08/2016 Orthostatic hypotension -Continue midodrine History of DVT to left arm. -S/P Mechanical clot removal Diabetes mellitus, type 2. -Continue Janumet -Last A1C I can find was in november 2016 and was 5.3% Constipation. -On Colace daily H/O Chronic kidney disease, stage III. -Creatinine normal here and I do not see any elevations in recent history CAD -H/O stents 2016 -HC 08/2016 showing LVEF 65%, SKYE 0.7cm2, 70-80% LAD, 30% LCx, 70-75% RCA -CHRIS to RCA 09/2016 -CHRIS to LAD 01/2017 Hypothyroidism. -Continue levothyroxine Osteoarthritis. 08/18/17 Oxygen needs continue to increase. Chest X-ray this morning does revel small bilateral pleural effusions and pulmonary edema. Lasix 40 mg IV x1 given this morning, will give repeat 40mg IV Lasix this evening. IVF stopped. Continue to monitor urinary output via Ramirez cath (chronic- changed 08/15) Trend daily weights. she is up 5 Kg from admission Change cefepime for ceftriaxone for treatment of Ecoli UTI. Continue to monitor Accu-Cheks Recheck CBC in am due to UTI/Resolving sepsis. Will recheck BMP in am secondary to Lasix use. Lovenox subcutaneous daily for DVT prophylaxis 08/19/17 Transferred to CCU overnight secondary to Afib with RVR, diltiazem drip started. HR showing improvement. Will consult with Dr Vanessa for treatment recommendations for afib. Digoxin level slightly subtherapeutic at 0.7 - could be increased. Will continue with Rocephin for urinary coverage. Lasix 20mg IV x1 to help mobilize pulmonary edema. Will recheck CXR in am. Weight trending down. Output increased with Lasix yesterday. Continue with supplemental O2, weaning as able. Encourage oral intake. 08/20/17 Will start KCL bolus at 50cc/hr as potassium with significant decrease due to Lasix. Weight with decreased. CXR without change, but O2 sats improved with less O2 flow (3L). Continue ceftriaxone for urinary coverage. Encouraging that oral drive increasing. Likely transfer to medical floor later today. Will have PT/OT restart work tomorrow. 08/21/17 CXR showing gradual improvement. O2 needs decreasing (down to 2L, and weaning). Creatinine stable. Potassium improved to 3.7. Will decrease IV Lasix to 40mg twice a day - worry for overdiuresis with patients decreased oral drive. Diamox 500mg x1 as CO2 increasing. Encourage oral intake. Encourage activities with therapy. Will continue Rocephin for urinary coverage. 08/22/17 Continued improvement in CXR and O2 need. Patient still somnolent. Nursing working on increasing bowel motivation. Weight with decrease and creatinine increased to 1.3 -- will stop IV Lasix. Continue Rocephin. Encourage activities and therapy. 08/23/17 Patient still somnolent. Leukocytosis increasing 9.8-->11.9-->13.1 despite continuation of ceftriaxone for UTI (+ sensitivity for ceftriaxone on C&S). Check CXR. Remains in NSR at this time. Continues amiodarone . Cardiology following. Patient with minimal intake. Is on fluid restriction d/t recent fluid overload , but pt isn't taking much po. May consider IVF's if she isn't taking more p.o. 08/24/17 Patient remains somnolent but oral intake is improved today and she is acknowledging examiner also improved from yesterday. Will attempt to get patient up in chair today; PT/OT can attempt ambulation tomorrow. Leukocytosis improved today-may have aspirated with emesis 2 days ago but no indication of aspiration pneumonitis by x-ray. Day 7 ceftriaxone for UTI. Sodium up to 147, BUN up further today. Conjunction with poor oral intake and laboratory signs of dehydration will hydrate with 1 L 1/2 NS. Remains in sinus rhythm by my review of telemetry and exam. Persistent encephalopathy-increase activity as tolerates. Avoid sedating medications. Continue vitamin B 12-will resume oral administration at discharge. Blood sugars stable; blood pressure borderline low-reassess after fluids. 08/25/17 Somnolent, confused. Poor intake with supper last night. Persistent hypernatremia with mild improvement. BUN also improved. Tele reviewed - shows A-fib with normal rate. She went into a-fib around 0500. Hypotension with BP 87/59, UO overall poor over the last few days - give NS 250 mL bolus. CXR from 08/23 reviewed - pulm edema noted; will need to monitor resp status/sats closely. Rocephin day #8 for E. coli UTI. Repeat UC from 08/15 was neg. 08/26/17 Continues to be somnolent, confused. Poor intake. Persistent hypernatremia. Daughter ok with placing midline and starting IVF's. Has remained in NSR since 8am yesterday. UA, performed yesterday d/t somnolence and questionable abdominal pain, + for leuks and bacteria. Urine culture pending. Rocephin day #9 for E. coli UTI. <Lawrence Vanessa - Last Filed: 09/04/17 15:02> Exam Vital signs: Temperature 95.2 F L 09/04/17 12:00 Pulse Rate 61 09/04/17 12:00 Respiratory Rate 16 09/04/17 12:00 Blood Pressure 96/56 09/04/17 12:00 Pulse Oximetry 98 09/04/17 08:21 Inpatient Medications: Discontinued Medications Generic Name Dose Route Start Last Admin Trade Name Freq PRN Reason Stop Dose Admin Acetaminophen 650 mg 08/15/17 19:04 09/03/17 13:03 Tylenol PO 650 mg Q5H PRN Administration Discomfort Acetaminophen 650 mg 08/15/17 19:[address] Q5H PRN Pain Acetazolamide 500 mg 08/21/17 12:26 08/21/17 14:27 Diamox PO 08/21/17 12:27 500 mg O ONE Administration Amiodarone HCl 100 mg 08/19/17 15:30 08/25/17 08:48 Pacerone PO Not Given DAILY [facility] Amiodarone HCl 150 mg 08/21/17 02:24 08/21/17 02:56 Amiodarone IV 08/21/17 02:25 150 mg O ONE Administration Amiodarone HCl 200 mg 08/26/17 09:00 09/04/17 08:31 Pacerone PO 200 mg DAILY [facility] Administration Aspirin 81 mg 08/16/17 09:00 09/04/17 08:31 Ecotrin PO 81 mg DAILY [facility] Administration Bisacodyl 10 mg 08/22/17 17:05 Dulcolax RECTALLY DAILY PRN Constipation Ceftriaxone Sodium 1 g 08/25/17 14:30 09/01/17 10:58 Rocephin 1 Gm Vial IM Not Given Q24H [facility] Clopidogrel Bisulfate 75 mg 08/16/17 09:00 08/16/17 08:31 Plavix PO 75 mg DAILY [facility] Administration Clopidogrel Bisulfate 75 mg 08/17/17 09:00 09/04/17 08:32 Plavix PO 75 mg DAILY [facility] Administration Cyanocobalamin 5,000 mcg 08/16/17 09:00 08/16/17 09:26 Vit. B-12 PO 5,000 mcg DAILY [facility] Administration Cyanocobalamin 0 mcg 08/17/17 09:00 Vit. B-12 PO DAILY [facility] Cyanocobalamin 1,000 mcg 08/17/17 09:00 08/31/17 10:34 Vit. B-12 IM 1,000 mcg [place] [facility] Administration Dextrose 10 ml 08/24/17 21:50 D50%W IVP PRN PRN Hypoglycemia Digoxin 125 mcg 08/17/17 12:00 08/19/17 08:57 Lanoxin PO 125 mcg DAILY [facility] Administration Digoxin 500 mcg 08/21/17 02:24 08/21/17 02:54 Lanoxin IVP 08/21/17 02:25 500 mcg O ONE Administration Diltiazem HCl 10 mg 08/18/17 21:55 08/18/17 22:19 Cardizem 25 Mg Inj IVP 08/18/17 21:56 10 mg O ONE Administration Docusate Sodium 100 mg 08/16/17 09:00 08/27/17 10:26 Colace PO 100 mg DAILY [facility] Administration Docusate Sodium 100 mg 08/27/17 13:57 Colace PO DAILY PRN Enoxaparin Sodium 40 mg 08/17/17 04:00 09/04/17 08:31 Lovenox SQ 40 mg DAILY [facility] Administration Furosemide 40 mg 08/18/17 12:16 08/18/17 12:26 Lasix 40 Mg/4 Ml IVP 08/18/17 12:17 40 mg Q6HR ONE Administration Furosemide 40 mg 08/18/17 20:00 08/18/17 20:44 Lasix 40 Mg/4 Ml IVP 08/18/17 20:01 40 mg ONE TIME ONE Administration Furosemide 20 mg 08/19/17 10:19 08/19/17 10:31 Lasix 20 Mg/2 Ml IVP 08/19/17 10:20 20 mg ONCE ONE Administration Furosemide 40 mg 08/19/17 17:00 08/20/17 11:15 Lasix 40 Mg/4 Ml IVP 40 mg Q8HR [facility] Administration Furosemide 40 mg 08/20/17 22:00 08/22/17 07:02 Lasix 40 Mg/4 Ml IVP 40 mg 0600,1400,2200 [facility] Administration Glucose 37.5 gm 08/24/17 21:50 Glutose 15 PO PRN PRN Hypoglycemia Cefepime HCl 1 gm/ Sodium 100 mls @ 200 mls/hr 08/15/17 15:23 08/15/17 16:20 Chloride IV 08/15/17 15:52 Infused O ONE Infusion Sodium Chloride 1,000 mls @ 1,000 mls/hr 08/15/17 15:23 08/15/17 17:07 Normal Saline IV 08/15/17 16:22 Infused .Q1H ONE Infusion Sodium Chloride 1,000 mls @ 100 mls/hr 08/15/17 19:15 08/18/17 11:37 Normal Saline IV Infused .Q10H [facility] Infusion Cefepime HCl 1 gm/ Sodium 100 mls @ 200 mls/hr 08/15/17 21:30 08/18/17 10:03 Chloride IV Infused Q6H [facility] Infusion Sodium Chloride 500 mls @ 500 mls/hr 08/15/17 22:59 08/15/17 23:20 Normal Saline IV 08/15/17 23:58 Not Given .Q1H ONE Cefepime HCl 1 gm/ Sodium 100 mls @ 200 mls/hr 08/18/17 16:00 Chloride IV Q6H [facility] Ceftriaxone Sodium 1 g/ Sodium 100 mls @ 200 mls/hr 08/18/17 14:45 08/24/17 15:42 Chloride IV Infused Q24H [facility] Infusion Diltiazem HCl 125 mg/ Sodium 125 mls @ 5 mls/hr 08/18/17 23:00 08/19/17 13:52 Chloride IV 0 mls/hr .Q24H [facility] Infusion Protocol Amiodarone HCl 450 mg/ Sodium 250 mls @ 33.33 mls/hr 08/19/17 12:00 08/19/17 18:00 Chloride IV 08/19/17 18:00 0.99 mg/min .Q7H31M [facility]A 33.33 mls/hr 1 MG/MIN Infusion Amiodarone HCl 900 mg/ Sodium 500 mls @ 16.66 mls/hr 08/19/17 18:00 Chloride IV .Q24H [facility] 0.5 MG/MIN Amiodarone HCl 150 mg/ Sodium 103 mls @ 618 mls/hr 08/19/17 11:57 08/19/17 12 :52 Chloride IV 08/19/17 12:06 Infused O ONE Infusion Potassium Chloride 10 meq in 100 mls @ 100 mls/hr 08/20/17 05:37 08/20/17 08: 07 Potassium Chloride Premix IV 08/20/17 06:36 Infused O ONE Infusion Lidocaine HCl 10 mg/ Potassium 100 mls @ 50 mls/hr 08/20/17 10:30 08/20/17 19 :55 Chloride 10 meq/ Sodium IV 08/20/17 18:57 Infused Chloride .Q2H [facility] Infusion Sodium Chloride 1,000 mls @ 75 mls/hr 08/24/17 15:45 08/25/17 05:40 1/2 Normal Saline IV 08/25/17 05:04 Infused .[id number] [facility] Infusion Sodium Chloride 1,000 mls @ 250 mls/hr 08/25/17 08:45 08/25/17 09:40 Normal Saline IV 08/25/17 09:44 Not Given .Q4H [facility] Sodium Chloride 1,000 mls @ 50 mls/hr 08/26/17 12:45 09/01/17 09:29 1/2 Normal Saline IV Not Given .Q20H [facility] Ceftriaxone Sodium 1 g/ Sodium 100 mls @ 200 mls/hr 08/26/17 16:15 08/28/17 17:12 Chloride IV Not Given Q24H [facility] Insulin Aspart 1 - 5 unit 08/24/17 21:50 09/04/17 12:07 Novolog SQ 1 unit SS PRN Administration Hyperglycemia Protocol Levothyroxine Sodium 50 mcg 08/16/17 06:30 08/17/17 05:58 Synthroid PO 50 mcg ACB [facility] Administration Levothyroxine Sodium 50 mcg 08/18/17 06:30 09/04/17 06:00 Synthroid PO 50 mcg ACB [facility] Administration Lidocaine HCl 2.1 mg 08/25/17 14:30 Xylocaine-Mpf 1% Vial IJ Q24H [facility] Lidocaine HCl 21 mg 08/25/17 14:30 08/29/17 15:47 Xylocaine-Mpf 1% Vial IJ Not Given Q24H [facility] Memantine 10 mg 08/16/17 09:00 09/04/17 08:31 Namenda PO 10 mg BID [facility] Administration Metoprolol Tartrate 25 mg 08/17/17 03:29 08/17/17 03:59 Lopressor PO 25 mg Q6H PRN Administration Midodrine 5 mg 08/15/17 21:00 08/17/17 08:59 Proamatine PO 5 mg TID [facility] Administration Midodrine 5 mg 08/17/17 09:00 08/18/17 09:28 Proamatine PO 08/18/17 10:00 5 mg TID [facility] Administration Midodrine 5 mg 08/18/17 11:00 09/04/17 12:07 Proamatine PO 5 mg 0700,1100,1500 [facility] Administration Non-Formulary Medication 5,000 mcg 08/16/17 09:00 Cyanocobalamin (Vitamin B-12) [B-12] SL DAILY [facility] Non-Formulary Medication 28 mg 08/16/17 09:00 Memantine Hcl [Namenda Xr] PO DAILY [facility] Non-Formulary Medication 1 tab 08/15/17 21:00 Sitagliptin Phos/Metformin Hcl [Janumet 50-500 Mg Tablet] PO BID PA[facility]A Pom Janumet 50-500 1 tab 08/26/17 09:45 08/26/17 14:55 PO 1 tab DAILY [facility] Administration Ondansetron HCl 4 mg 08/15/17 19:04 08/23/17 09:42 Zofran IVP 4 mg Q6H PRN Administration Nausea &/or vomiting Pharmacy Consult 1 each 08/21/17 22:40 Pharmacy Consult - Fall Risk 08/21/17 22:41 ONE TIME ONE Polyethylene Glycol 17 gm 08/21/17 09:00 09/04/17 08:31 Miralax PO 17 gm DAILY [facility] Administration Potassium Chloride 40 meq 08/19/17 15:36 K-Dur 20 Meq Tablet PO 08/19/17 15:37 O ONE Potassium Chloride 40 meq 08/20/17 05:37 08/20/17 05:44 K-Dur 20 Meq Tablet PO 08/20/17 05:38 40 meq O ONE Administration Potassium Chloride 20 meq 08/20/17 17:30 08/22/17 12:14 K-Dur 20 Meq Tablet PO 20 meq TIDWM PA[facility]A Administration Potassium Chloride 20 meq 08/30/17 10:35 08/30/17 11:20 K-Dur 20 Meq Tablet PO 08/30/17 10:36 20 meq O ONE Administration Senna/Docusate Sodium 1 tab 08/15/17 19:04 08/26/17 09:59 Senna Plus Tablet PO 1 tab BID PRN Administration Constipation Sodium Chloride 10 - 80 ml 08/15/17 15:23 09/03/17 04:04 Iv Flush IVF 30 ml PRN PRN Administration Flushing Sodium Chloride 500 ml 08/15/17 15:35 08/21/17 02:54 Normal Saline IV 500 ml PRN PRN Administration Sodium Chloride 10 ml 08/15/17 19:04 08/24/17 15:09 Iv Flush IV 10 ml PRN PRN Administration Flushing Sodium Chloride 2 spray 08/18/17 18:44 09/04/17 12:08 Deep Sea Nasal Moisturizing [place] EA NOSTRIL 2 spray QID PA[facility]A Administration Sodium Phosphate 1 enema 08/22/17 10:[address] PRN PRN Vancomycin HCl 125 mg 08/29/17 21:00 09/04/17 08:31 Vancomycin Oral Liq PO 09/08/17 20:59 125 mg Q6HR [facility]A Administration - Urinary Catheter Management Urethral Cath placed during this visit: no Results 09/04/17 04:50 09/04/17 04:50 CBC 09/04/17 Range/Units 04:50 WBC 8.4 (4.5-11.0) T/MM3 RBC 3.42 L (4.00-5.20) M/MM3 Hgb 10.4 L (12-16) GM/DL Hct 32.9 L (36-46) % Plt Count 263 (130-400) T/MM3 Neut # (Auto) 5.3 (1.8-7.7) T/MM3 Lymph # (Auto) 2.0 (1-4.8) T/MM3 [place] # (Auto) 0.6 (0-0.8) T/MM3 Eos # (Auto) 0.4 (0-0.5) T/MM3 Baso # (Auto) 0.1 (0-0.2) T/MM3 Comprehensive Metabolic Panel 09/04/17 Range/Units 04:50 Sodium 143 (134-144) MEQ/L Potassium 4.1 (3.6-5) MEQ/L Chloride 105 (98-107) MEQ/L Carbon Dioxide 27 (22-30) MEQ/L BUN 20.0 H (7-17) MG/DL Creatinine 0.9 (0.7-1.2) mg/dL Glucose 123 H (65-110) MG/DL Calcium 9.2 (8.4-10.2) MG/DL Intake and Output 09/04/17 09/04/17 09/04/17 06:59 14:59 22:59 Output Total 175 / 175 Balance -175 / -175 Output: Urine Amount (Catheter) 175 / 175 Other: Urine Appearance Clear Urine Color Dark [place] Weight 61.9 kg Patient Weight 09/05/17 06:59 Weight 61.9 kg Assessment and Plan - Assessment and Plan (1) Atrial fibrillation with RVR Status: Acute (2) Atherosclerotic heart disease of [place] coronary artery without angina pectoris Status: Chronic (3) Nonrheumatic aortic valve stenosis Status: Chronic (4) Syncope and collapse Status: Chronic (5) Hypotension Status: Chronic (6) Type 2 diabetes mellitus without complications Status: Chronic (7) Diastolic CHF Status: Acute - Attestation Attestation Narrative: 09/04/17 15:02 Recommendation After examining the patient I agree with the above assessment. I am involved in the formulation of the patient's plan of care. Hospital Course Summary Disclaimer: The visit summary below is not to be considered part of the above Progress Note.
[2017-08-28] MEDS: LIDOCAINE 1% (10mg/ml) 5ml PF SDV IJ SCH (17:12)
[2017-08-28] MEDS: CEFTRIAXONE 1 G in NS 100 ML IV SCH (17:12)
[2017-08-29] MEDS: 1/2 NS 1,000 ML IV SCH (05:46)
[2017-08-29] MEDS: MIDODRINE 5 MG TABLET PO SCH ×3 (06:12→21:10)
[2017-08-29] MEDS: LEVOTHYROXINE 50 MCG TABLET PO SCH (06:13)
--- NOTE | 2017-08-29 08:25 | XRay Report ---
Indication: Pneumonia PROCEDURE: XR chest 1V: Encounter: Initial Comparison: August 23, 2017 Findings: Lungs are stable in appearance.. No new or worsening airspace disease. Trace effusions. No pneumothorax. Heart size and mediastinal contours are stable. Impression: Stable appearance of the chest. .
[2017-08-29] MEDS: CLOPIDOGREL 75 MG TABLET PO SCH (08:51)
[2017-08-29] MEDS: ENOXAPARIN 40 MG/0.4 ML INJECTION SQ SCH (08:51)
[2017-08-29] MEDS: ASPIRIN *EC* 81 MG TABLET PO SCH (08:52)
[2017-08-29] MEDS: POLYETHYL GLYCOL 3350 17gm PACKET PO SCH (08:52)
[2017-08-29] MEDS: MEMANTINE 10 MG TABLET PO SCH ×2 (08:52→23:33)
[2017-08-29] MEDS: AMIODARONE 200 MG TABLET PO SCH (08:52)
[2017-08-29] MEDS: SALINE 0.65% NASAL SPRAY 44 ML BOTTLE EA NOSTRIL SCH ×4 (08:52→23:34)
--- NOTE | 2017-08-29 11:29 | Cardiology Progress Note ---
<Sandra Guevara M - Last Filed: 08/29/17 16:44> Subjective Principal diagnosis: AFib RVR Interval history: Margarita is seen in follow up for AFib with RVR. She was seen in the recliner, states she has back pain but denies chest pain. She asks if I am here to take her home. She has her breakfast in front of her but states she doesn't want to eat it. She appears comfortable and is in no distress. Exam Vital signs: Temperature 97 F 08/29/17 08:00 Pulse Rate 93 08/29/17 08:00 Respiratory Rate 18 08/29/17 08:00 Blood Pressure 102/65 08/29/17 08:00 Pulse Oximetry 95 08/29/17 08:00 Inpatient Medications: Generic Name Dose Route Start Last Admin Trade Name Freq PRN Reason Stop Dose Admin Acetaminophen 650 mg 08/15/17 19:04 08/22/17 08:28 Tylenol PO 650 mg Q5H PRN Administration Discomfort Amiodarone HCl 200 mg 08/26/17 09:00 08/29/17 08:52 Pacerone PO 200 mg DAILY PAOLA Administration Aspirin 81 mg 08/16/17 09:00 08/29/17 08:52 Ecotrin PO 81 mg DAILY PAOLA Administration Bisacodyl 10 mg 08/22/17 17:05 Dulcolax RECTALLY DAILY PRN Constipation Clopidogrel Bisulfate 75 mg 08/17/17 09:00 08/29/17 08:51 Plavix PO 75 mg DAILY PAOLA Administration Cyanocobalamin 1,000 mcg 08/17/17 09:00 08/24/17 08:59 Vit. B-12 IM 1,000 mcg Abarca PAOLA Administration Dextrose 10 ml 08/24/17 21:50 D50%W IVP PRN PRN Hypoglycemia Docusate Sodium 100 mg 08/27/17 13:57 Colace PO DAILY PRN Enoxaparin Sodium 40 mg 08/17/17 04:00 08/29/17 08:51 Lovenox SQ 40 mg DAILY PAOLA Administration Glucose 37.5 gm 08/24/17 21:50 Glutose 15 PO PRN PRN Hypoglycemia Sodium Chloride 1,000 mls @ 60 mls/hr 08/26/17 12:45 08/29/17 05:46 1/2 Normal Saline IV 60 mls/hr .[id number] PAOLA Administration Insulin Aspart 1 - 5 unit 08/24/17 21:50 08/27/17 16:06 Novolog SQ 2 unit SS PRN Administration Hyperglycemia Protocol Levothyroxine Sodium 50 mcg 08/18/17 06:30 08/29/17 06:13 Synthroid PO 50 mcg ACB PAOLA Administration Lidocaine HCl 21 mg 08/25/17 14:30 08/28/17 17:12 Xylocaine-Mpf 1% Vial IJ Not Given Q24H PAOLA Memantine 10 mg 08/16/17 09:00 08/29/17 08:52 Namenda PO 10 mg BID PAOLA Administration Midodrine 5 mg 08/18/17 11:00 08/29/17 06:12 Proamatine PO 5 mg 0700,1100,1500 PAOLA Administration Pom Janumet 50-500 1 tab 08/26/17 09:45 08/26/17 14:55 PO 1 tab DAILY PAOLA Administration Ondansetron HCl 4 mg 08/15/17 19:04 08/23/17 09:42 Zofran IVP 4 mg Q6H PRN Administration Nausea &/or vomiting Polyethylene Glycol 17 gm 08/21/17 09:00 08/29/17 08:52 Miralax PO Not Given DAILY PAOLA Senna/Docusate Sodium 1 tab 08/15/17 19:04 08/26/17 09:59 Senna Plus Tablet PO 1 tab BID PRN Administration Constipation Sodium Chloride 10 - 80 ml 08/15/17 15:23 08/26/17 15:57 Iv Flush IVF 10 ml PRN PRN Administration Flushing Sodium Chloride 500 ml 08/15/17 15:35 08/21/17 02:54 Normal Saline IV 500 ml PRN PRN Administration Sodium Chloride 10 ml 08/15/17 19:04 08/24/17 15:09 Iv Flush IV 10 ml PRN PRN Administration Flushing Sodium Chloride 2 spray 08/18/17 18:44 08/29/17 08:52 Deep Sea Nasal Moisturizing [place] EA NOSTRIL Not Given QID PAOLA Sodium Phosphate 1 enema 08/22/17 10:00 Fleet Enema [place] PRN PRN Discontinued Medications Generic Name Dose Route Start Last Admin Trade Name Freq PRN Reason Stop Dose Admin Acetaminophen 650 mg 08/15/17 19:04 Tylenol Supp [place] Q5H PRN Pain Acetazolamide 500 mg 08/21/17 12:26 08/21/17 14:27 Diamox PO 08/21/17 12:27 500 mg O ONE Administration Amiodarone HCl 100 mg 08/19/17 15:30 08/25/17 08:48 Pacerone PO Not Given DAILY [facility] Amiodarone HCl 150 mg 08/21/17 02:24 08/21/17 02:56 Amiodarone IV 08/21/17 02:25 150 mg O ONE Administration Ceftriaxone Sodium 1 g 08/25/17 14:30 08/26/17 14:56 Rocephin 1 Gm Vial IM Not Given Q24H [facility] Clopidogrel Bisulfate 75 mg 08/16/17 09:00 08/16/17 08:31 Plavix PO 75 mg DAILY [facility] Administration Cyanocobalamin 5,000 mcg 08/16/17 09:00 08/16/17 09:26 Vit. B-12 PO 5,000 mcg DAILY [facility] Administration Cyanocobalamin 0 mcg 08/17/17 09:00 Vit. B-12 PO DAILY [facility] Digoxin 125 mcg 08/17/17 12:00 08/19/17 08:57 Lanoxin PO 125 mcg DAILY [facility] Administration Digoxin 500 mcg 08/21/17 02:24 08/21/17 02:54 Lanoxin IVP 08/21/17 02:25 500 mcg O ONE Administration Diltiazem HCl 10 mg 08/18/17 21:55 08/18/17 22:19 Cardizem 25 Mg Inj IVP 08/18/17 21:56 10 mg O ONE Administration Docusate Sodium 100 mg 08/16/17 09:00 08/27/17 10:26 Colace PO 100 mg DAILY PAOLA Administration Furosemide 40 mg 08/18/17 12:16 08/18/17 12:26 Lasix 40 Mg/4 Ml IVP 08/18/17 12:17 40 mg Q6HR ONE Administration Furosemide 40 mg 08/18/17 20:00 08/18/17 20:44 Lasix 40 Mg/4 Ml IVP 08/18/17 20:01 40 mg ONE TIME ONE Administration Furosemide 20 mg 08/19/17 10:19 08/19/17 10:31 Lasix 20 Mg/2 Ml IVP 08/19/17 10:20 20 mg ONCE ONE Administration Furosemide 40 mg 08/19/17 17:00 08/20/17 11:15 Lasix 40 Mg/4 Ml IVP 40 mg Q8HR PAOLA Administration Furosemide 40 mg 08/20/17 22:00 08/22/17 07:02 Lasix 40 Mg/4 Ml IVP 40 mg 0600,1400,2200 PAOLA Administration Cefepime HCl 1 gm/ Sodium 100 mls @ 200 mls/hr 08/15/17 15:23 08/15/17 16:20 Chloride IV 08/15/17 15:52 Infused O ONE Infusion Sodium Chloride 1,000 mls @ 1,000 mls/hr 08/15/17 15:23 08/15/17 17:07 Normal Saline IV 08/15/17 16:22 Infused .Q1H ONE Infusion Sodium Chloride 1,000 mls @ 100 mls/hr 08/15/17 19:15 08/18/17 11:37 Normal Saline IV Infused .Q10H PAOLA Infusion Cefepime HCl 1 gm/ Sodium 100 mls @ 200 mls/hr 08/15/17 21:30 08/18/17 10:03 Chloride IV Infused Q6H PAOLA Infusion Sodium Chloride 500 mls @ 500 mls/hr 08/15/17 22:59 08/15/17 23:20 Normal Saline IV 08/15/17 23:58 Not Given .Q1H ONE Cefepime HCl 1 gm/ Sodium 100 mls @ 200 mls/hr 08/18/17 16:00 Chloride IV Q6H PAOLA Ceftriaxone Sodium 1 g/ Sodium 100 mls @ 200 mls/hr 08/18/17 14:45 08/24/17 15:42 Chloride IV Infused Q24H PAOLA Infusion Diltiazem HCl 125 mg/ Sodium 125 mls @ 5 mls/hr 08/18/17 23:00 08/19/17 13:52 Chloride IV 0 mls/hr .Q24H PAOLA Infusion Protocol Amiodarone HCl 450 mg/ Sodium 250 mls @ 33.33 mls/hr 08/19/17 12:00 08/19/17 18:00 Chloride IV 08/19/17 18:00 0.99 mg/min .Q7H31M PAOLA 33.33 mls/hr 1 MG/MIN Infusion Amiodarone HCl 900 mg/ Sodium 500 mls @ 16.66 mls/hr 08/19/17 18:00 Chloride IV .Q24H PAOLA 0.5 MG/MIN Amiodarone HCl 150 mg/ Sodium 103 mls @ 618 mls/hr 08/19/17 11:57 08/19/17 12 :52 Chloride IV 08/19/17 12:06 Infused O ONE Infusion Potassium Chloride 10 meq in 100 mls @ 100 mls/hr 08/20/17 05:37 08/20/17 08: 07 Potassium Chloride Premix IV 08/20/17 06:36 Infused O ONE Infusion Lidocaine HCl 10 mg/ Potassium 100 mls @ 50 mls/hr 08/20/17 10:30 08/20/17 19 :55 Chloride 10 meq/ Sodium IV 08/20/17 18:57 Infused Chloride .Q2H PAOLA Infusion Sodium Chloride 1,000 mls @ 75 mls/hr 08/24/17 15:45 08/25/17 05:40 1/2 Normal Saline IV 08/25/17 05:04 Infused .[id number] PAOLA Infusion Sodium Chloride 1,000 mls @ 250 mls/hr 08/25/17 08:45 08/25/17 09:40 Normal Saline IV 08/25/17 09:44 Not Given .Q4H PAOLA Ceftriaxone Sodium 1 g/ Sodium 100 mls @ 200 mls/hr 08/26/17 16:15 08/28/17 17:12 Chloride IV Not Given Q24H PAOLA Levothyroxine Sodium 50 mcg 08/16/17 06:30 08/17/17 05:58 Synthroid PO 50 mcg ACB PAOLA Administration Lidocaine HCl 2.1 mg 08/25/17 14:30 Xylocaine-Mpf 1% Vial IJ Q24H PAOLA Metoprolol Tartrate 25 mg 08/17/17 03:29 08/17/17 03:59 Lopressor PO 25 mg Q6H PRN Administration Midodrine 5 mg 08/15/17 21:00 08/17/17 08:59 Proamatine PO 5 mg TID PAOLA Administration Midodrine 5 mg 08/17/17 09:00 08/18/17 09:28 Proamatine PO 08/18/17 10:00 5 mg TID PAOLA Administration Non-Formulary Medication 5,000 mcg 08/16/17 09:00 Cyanocobalamin (Vitamin B-12) [B-12] SL DAILY PAOLA Non-Formulary Medication 28 mg 08/16/17 09:00 Memantine Hcl [Namenda Xr] PO DAILY PAOLA Non-Formulary Medication 1 tab 08/15/17 21:00 Sitagliptin Phos/Metformin Hcl [Janumet 50-500 Mg Tablet] PO BID [facility] Pharmacy Consult 1 each 08/21/17 22:40 Pharmacy Consult - Fall Risk [facility] 08/21/17 22:41 ONE TIME ONE Potassium Chloride 40 meq 08/19/17 15:36 K-Dur 20 Meq Tablet PO 08/19/17 15:37 O ONE Potassium Chloride 40 meq 08/20/17 05:37 08/20/17 05:44 K-Dur 20 Meq Tablet PO 08/20/17 05:38 40 meq O ONE Administration Potassium Chloride 20 meq 08/20/17 17:30 08/22/17 12:14 K-Dur 20 Meq Tablet PO 20 meq TIDWM PAOLA Administration - Constitutional no acute distress, well nourished, cooperative - Routine HEENT Exam Head: Present: normocephalic ENT: Present: mucous membranes moist - Routine Neck Exam Absent: JVD, carotid bruit - Routine Chest/Breast/Axilla Exam Chest wall: Absent: tenderness - Routine Respiratory Exam Present: decreased breath sounds (anteriorly). Absent: rales, wheezes - Routine Cardiovascular Exam Present: RRR, no murmur - Routine Abdominal Exam Present: soft, non tender - Routine Extremities Exam Present: no edema, pulses intact - Routine Skin Exam Present: intact, dry, warm - Routine Neurological Exam Present: alert, oriented X3 - Routine Psychiatric Exam Present: normal affect - Urinary Catheter Management Urethral Cath placed during this visit: yes, but has since been removed by the nurse Insertion date: 08/21/17 Insertion time: 12:30 Removal date: 08/21/17 Removal time: 12:00 Results 08/29/17 04:16 08/29/17 04:16 CBC 08/29/17 Range/Units 04:16 WBC 9.0 (4.5-11.0) T/MM3 RBC 3.51 L (4.00-5.20) M/MM3 Hgb 10.8 L (12-16) GM/DL Hct 33.9 L (36-46) % Plt Count 340 (130-400) T/MM3 Neut # (Auto) 5.7 (1.8-7.7) T/MM3 Lymph # (Auto) 1.9 (1-4.8) T/MM3 Lewis # (Auto) 0.8 (0-0.8) T/MM3 Eos # (Auto) 0.5 (0-0.5) T/MM3 Baso # (Auto) 0.1 (0-0.2) T/MM3 Comprehensive Metabolic Panel 08/29/17 Range/Units 04:16 Sodium 143 (134-144) MEQ/L Potassium 4.2 (3.6-5) MEQ/L Chloride 105 (98-107) MEQ/L Carbon Dioxide 28 (22-30) MEQ/L BUN 13.0 (7-17) MG/DL Creatinine 0.7 (0.7-1.2) mg/dL Glucose 113 H (65-110) MG/DL Calcium 9.0 (8.4-10.2) MG/DL Albumin 3.0 L (3.5-5.0) g/dL Intake and Output 08/28/17 08/29/17 08/29/17 22:59 06:59 14:59 Intake Total 956 / 956 Output Total 875 / 875 900 / 900 Balance -875 / -875 56 / 56 Intake: IV 956 / 956 1/2 Ns 1,000 ml @ 60 mls/hr IV 956 / 956 .[id number] [facility] Rx#:[id number] Output: Urine Amount (Catheter) 875 / 875 900 / 900 Other: Urine Appearance Clear Clear Urine Color Pale Yellow Yellow Urine Odor Normal Stool Color Brown Brown Yellow Stool Consistency Soft Loose Size of Bowel Movement Small Small # Incontinent Bowel Movements 1 Weight 136 lb 3.931 oz Patient Weight 08/30/17 06:59 Weight 136 lb 3.931 oz - Imaging and Cardiology Imaging & Cardiology Narrative: Date of Exam: 08/29/17 Ordering Provider: Parul Persaud APRN Type of Exam(s): XR chest 1V Reason for Exam(s): Pneumonia Indication: Pneumonia PROCEDURE: XR chest 1V: Encounter: Initial Comparison: August 23, 2017 Findings: Lungs are stable in appearance.. No new or worsening airspace disease. Trace effusions. No pneumothorax. Heart size and mediastinal contours are stable. Impression: Stable appearance of the chest. 08/29/17 11:30 Assessment and Plan - Assessment and Plan (1) Atrial fibrillation with RVR Status: Acute (2) Atherosclerotic heart disease of [place] coronary artery without angina pectoris Status: Chronic (3) Nonrheumatic aortic valve stenosis Status: Chronic (4) Syncope and collapse Status: Chronic (5) Hypotension Status: Chronic (6) Type 2 diabetes mellitus without complications Status: Chronic (7) Diastolic CHF Status: Acute - Assessment and Plan 08/19/17 A Fib with RVR: History of PAF, asymptomatic - Takes Amiodarone 100mg daily, not given this admission - Amiodarone bolus and drip - Npo for possible DCCV - Converted to SR - Resume home Amiodarone 100mg PO daily and stop IV - EKG now - Stop Digoxin. - Check TSh and Mag DCHF: Diurese with Lasix 40mg IV q8h - CXR: Diffuse airspace opacities throughout both lungs. Probable small bilateral pleural effusions. Close interval follow-up is recommended. - K+ 3.3, replace CAD: Stable. continue current therapy, routine monitoring. - Continue Aspirin and Plavix Hypotension: Continue Midodrine Thank you for allowing us to participate in the care of this patient. 08/20/17 AFib:Continue home dose Amiodarone 100mg daily - Not a candidate for residential anticoagulation due to age and fall risk DCHF: Diuresing well. - CXR: No significant change in diffuse bilateral airspace disease which could represent edema, pneumonia, massive aspiration or pulmonary hemorrhage. - Continue Lasix 40mg IV q8h - K+ 2.9, Replace K+ 20meq po with meals TID - TSH, Mag WNL - Monitor renal and electrolytes 08/21/17 Went back into AFib overnight. - Given 150mg IV Amiodarone bolus and Digoxin 500mcg - Converted back this afternoon to SR - Continue Amiodarone at 100mg daily CXR: Overall slight improvement in appearance of the chest may be due to resolving edema. - Continue diuresis - Monitor renal and electrolytes 08/22/17 BUN/SCr 39/ 1.3, NA 145 today, K+ 4.2 - Diuretic stopped by attending - Stop K+ replacement CXR: Impression: Continued improvement in pulmonary edema. 08/25/17 Accurate I & O please, need to watch fluid balance closely with patient's and history of hypotension. - Monitor renal and electrolytes - CXR 08/23/17: Stable to slightly improved appearance of the lungs. 08/26/17 Increased Amiodarone to 200mg daily for better control of PAF 08/27/17 Telemetry remains SR Closely monitor Fluid balance due to . - weight increasing - IVF/ rate per hospitalist 08/28/17 NA 140 today, BUN improving, weight up 3# - Accurate daily weights please 08/29/17 - Weight stable - Tele remains SR mostly Hospital Course Summary Disclaimer: The visit summary below is not to be considered part of the above Progress Note. Hospital Course: 08/15/17 [facility] the care of Dr. Martinez. 1L NS initiated in ED. Will continue NS 100cc/hr for hydration. Cefepime 1g IV given in ED. Continue empiric coverage for urinary pathogens with Cefepime IV Q6H. UA culture from 08/14/17 revealing gram negative rods. Monitor for sensitives and new UA culture results. Blood culture obtained and results pending. Monitor closely on telemetry. Continue home medications. Monitor blood pressure closely. Monitor daily weight and urinary output closely for signs of fluid overload. Renal function stable. Upon discharge, patient's care will be returned to Dr Cabalelro. Patient is a DNR. 08/17/17 Sepsis secondary to UTI as indicated by tachycardia, fever, altered level of consciousness and hypotension. -IVF -Repeat lactate-normalized -Mental status improving UTI -Recurrent, frequent -Indwelling Ramirez- since 02/2017 - changed 08/15/17. -On cefepime -Bl cx NGTD -Urine cx from 08/15 NGTD, the one done on 08/14 growing E. coli sensitive to cefepime Altered level of consciousness. -This is usual for her when she gets an UTI per daughter -She does have underlying dementia -This is improved today Generalized weakness and debility. -Due to UTI -consult PT PAF -Not on OAC -Metoprolol 25mg q6hr prn started by nighttime MD -With her hypotension, she may not tolerate this. -Will try low dose digoxin and monitor History of CVA - 2011. -On aspirin and Plavix Dementia. -On Namenda XR Hypothyroid -continue levothyroxine -Last free T4 1.84 in November 2016 Severe aortic stenosis. -SKYE 0.7cm2 per HC 08/2016 Orthostatic hypotension -Continue midodrine History of DVT to left arm. -S/P Mechanical clot removal Diabetes mellitus, type 2. -Continue Janumet -Last A1C I can find was in november 2016 and was 5.3% Constipation. -On Colace daily H/O Chronic kidney disease, stage III. -Creatinine normal here and I do not see any elevations in recent history CAD -H/O stents 2016 -HC 08/2016 showing LVEF 65%, SKYE 0.7cm2, 70-80% LAD, 30% LCx, 70-75% RCA -CHRIS to RCA 09/2016 -CHRIS to LAD 01/2017 Hypothyroidism. -Continue levothyroxine Osteoarthritis. 08/18/17 Oxygen needs continue to increase. Chest X-ray this morning does revel small bilateral pleural effusions and pulmonary edema. Lasix 40 mg IV x1 given this morning, will give repeat 40mg IV Lasix this evening. IVF stopped. Continue to monitor urinary output via Ramirez cath (chronic- changed 08/15) Trend daily weights. she is up 5 Kg from admission Change cefepime for ceftriaxone for treatment of Ecoli UTI. Continue to monitor Accu-Cheks Recheck CBC in am due to UTI/Resolving sepsis. Will recheck BMP in am secondary to Lasix use. Lovenox subcutaneous daily for DVT prophylaxis 08/19/17 Transferred to CCU overnight secondary to Afib with RVR, diltiazem drip started. HR showing improvement. Will consult with Dr Vanessa for treatment recommendations for afib. Digoxin level slightly subtherapeutic at 0.7 - could be increased. Will continue with Rocephin for urinary coverage. Lasix 20mg IV x1 to help mobilize pulmonary edema. Will recheck CXR in am. Weight trending down. Output increased with Lasix yesterday. Continue with supplemental O2, weaning as able. Encourage oral intake. 08/20/17 Will start KCL bolus at 50cc/hr as potassium with significant decrease due to Lasix. Weight with decreased. CXR without change, but O2 sats improved with less O2 flow (3L). Continue ceftriaxone for urinary coverage. Encouraging that oral drive increasing. Likely transfer to medical floor later today. Will have PT/OT restart work tomorrow. 08/21/17 CXR showing gradual improvement. O2 needs decreasing (down to 2L, and weaning). Creatinine stable. Potassium improved to 3.7. Will decrease IV Lasix to 40mg twice a day - worry for overdiuresis with patients decreased oral drive. Diamox 500mg x1 as CO2 increasing. Encourage oral intake. Encourage activities with therapy. Will continue Rocephin for urinary coverage. 08/22/17 Continued improvement in CXR and O2 need. Patient still somnolent. Nursing working on increasing bowel motivation. Weight with decrease and creatinine increased to 1.3 -- will stop IV Lasix. Continue Rocephin. Encourage activities and therapy. 08/23/17 Patient still somnolent. Leukocytosis increasing 9.8-->11.9-->13.1 despite continuation of ceftriaxone for UTI (+ sensitivity for ceftriaxone on C&S). Check CXR. Remains in NSR at this time. Continues amiodarone . Cardiology following. Patient with minimal intake. Is on fluid restriction d/t recent fluid overload , but pt isn't taking much po. May consider IVF's if she isn't taking more p.o. 08/24/17 Patient remains somnolent but oral intake is improved today and she is acknowledging examiner also improved from yesterday. Will attempt to get patient up in chair today; PT/OT can attempt ambulation tomorrow. Leukocytosis improved today-may have aspirated with emesis 2 days ago but no indication of aspiration pneumonitis by x-ray. Day 7 ceftriaxone for UTI. Sodium up to 147, BUN up further today. Conjunction with poor oral intake and laboratory signs of dehydration will hydrate with 1 L 1/2 NS. Remains in sinus rhythm by my review of telemetry and exam. Persistent encephalopathy-increase activity as tolerates. Avoid sedating medications. Continue vitamin B 12-will resume oral administration at discharge. Blood sugars stable; blood pressure borderline low-reassess after fluids. 08/25/17 Somnolent, confused. Poor intake with supper last night. Persistent hypernatremia with mild improvement. BUN also improved. Tele reviewed - shows A-fib with normal rate. She went into a-fib around 0500. Hypotension with BP 87/59, UO overall poor over the last few days - give NS 250 mL bolus. CXR from 08/23 reviewed - pulm edema noted; will need to monitor resp status/sats closely. Rocephin day #8 for E. coli UTI. Repeat UC from 08/15 was neg. 08/26/17 Continues to be somnolent, confused. Poor intake. Persistent hypernatremia. Daughter ok with placing midline and starting IVF's. Has remained in NSR since 8am yesterday. UA, performed yesterday d/t somnolence and questionable abdominal pain, + for leuks and bacteria. Urine culture pending. Rocephin day #9 for E. coli UTI. <Lawrence Vanessa - Last Filed: 09/04/17 15:16> Exam Vital signs: Temperature 95.2 F L 09/04/17 12:00 Pulse Rate 61 09/04/17 12:00 Respiratory Rate 16 09/04/17 12:00 Blood Pressure 96/56 09/04/17 12:00 Pulse Oximetry 98 09/04/17 08:21 Inpatient Medications: Discontinued Medications Generic Name Dose Route Start Last Admin Trade Name Freq PRN Reason Stop Dose Admin Acetaminophen 650 mg 08/15/17 19:04 09/03/17 13:03 Tylenol PO 650 mg Q5H PRN Administration Discomfort Acetaminophen 650 mg 08/15/17 19:04 Tylenol Supp [place] Q5H PRN Pain Acetazolamide 500 mg 08/21/17 12:26 08/21/17 14:27 Diamox PO 08/21/17 12:27 500 mg O ONE Administration Amiodarone HCl 100 mg 08/19/17 15:30 08/25/17 08:48 Pacerone PO Not Given DAILY PAOLA Amiodarone HCl 150 mg 08/21/17 02:24 08/21/17 02:56 Amiodarone IV 08/21/17 02:25 150 mg O ONE Administration Amiodarone HCl 200 mg 08/26/17 09:00 09/04/17 08:31 Pacerone PO 200 mg DAILY PAOLA Administration Aspirin 81 mg 08/16/17 09:00 09/04/17 08:31 Ecotrin PO 81 mg DAILY PAOLA Administration Bisacodyl 10 mg 08/22/17 17:05 Dulcolax RECTALLY DAILY PRN Constipation Ceftriaxone Sodium 1 g 08/25/17 14:30 09/01/17 10:58 Rocephin 1 Gm Vial IM Not Given Q24H PAOLA Clopidogrel Bisulfate 75 mg 08/16/17 09:00 08/16/17 08:31 Plavix PO 75 mg DAILY PAOLA Administration Clopidogrel Bisulfate 75 mg 08/17/17 09:00 09/04/17 08:32 Plavix PO 75 mg DAILY PAOLA Administration Cyanocobalamin 5,000 mcg 08/16/17 09:00 08/16/17 09:26 Vit. B-12 PO 5,000 mcg DAILY PAOLA Administration Cyanocobalamin 0 mcg 08/17/17 09:00 Vit. B-12 PO DAILY PAOLA Cyanocobalamin 1,000 mcg 08/17/17 09:00 08/31/17 10:34 Vit. B-12 IM 1,000 mcg Abarca PAOLA Administration Dextrose 10 ml 08/24/17 21:50 D50%W IVP PRN PRN Hypoglycemia Digoxin 125 mcg 08/17/17 12:00 08/19/17 08:57 Lanoxin PO 125 mcg DAILY PAOLA Administration Digoxin 500 mcg 08/21/17 02:24 08/21/17 02:54 Lanoxin IVP 08/21/17 02:25 500 mcg O ONE Administration Diltiazem HCl 10 mg 08/18/17 21:55 08/18/17 22:19 Cardizem 25 Mg Inj IVP 08/18/17 21:56 10 mg O ONE Administration Docusate Sodium 100 mg 08/16/17 09:00 08/27/17 10:26 Colace PO 100 mg DAILY PAOLA Administration Docusate Sodium 100 mg 08/27/17 13:57 Colace PO DAILY PRN Enoxaparin Sodium 40 mg 08/17/17 04:00 09/04/17 08:31 Lovenox SQ 40 mg DAILY PAOLA Administration Furosemide 40 mg 08/18/17 12:16 08/18/17 12:26 Lasix 40 Mg/4 Ml IVP 08/18/17 12:17 40 mg Q6HR ONE Administration Furosemide 40 mg 08/18/17 20:00 08/18/17 20:44 Lasix 40 Mg/4 Ml IVP 08/18/17 20:01 40 mg ONE TIME ONE Administration Furosemide 20 mg 08/19/17 10:19 08/19/17 10:31 Lasix 20 Mg/2 Ml IVP 08/19/17 10:20 20 mg ONCE ONE Administration Furosemide 40 mg 08/19/17 17:00 08/20/17 11:15 Lasix 40 Mg/4 Ml IVP 40 mg Q8HR PAOLA Administration Furosemide 40 mg 08/20/17 22:00 08/22/17 07:02 Lasix 40 Mg/4 Ml IVP 40 mg 0600,1400,2200 PAOLA Administration Glucose 37.5 gm 08/24/17 21:50 Glutose 15 PO PRN PRN Hypoglycemia Cefepime HCl 1 gm/ Sodium 100 mls @ 200 mls/hr 08/15/17 15:23 08/15/17 16:20 Chloride IV 08/15/17 15:52 Infused O ONE Infusion Sodium Chloride 1,000 mls @ 1,000 mls/hr 08/15/17 15:23 08/15/17 17:07 Normal Saline IV 08/15/17 16:22 Infused .Q1H ONE Infusion Sodium Chloride 1,000 mls @ 100 mls/hr 08/15/17 19:15 08/18/17 11:37 Normal Saline IV Infused .Q10H PAOLA Infusion Cefepime HCl 1 gm/ Sodium 100 mls @ 200 mls/hr 08/15/17 21:30 08/18/17 10:03 Chloride IV Infused Q6H PAOLA Infusion Sodium Chloride 500 mls @ 500 mls/hr 08/15/17 22:59 08/15/17 23:20 Normal Saline IV 08/15/17 23:58 Not Given .Q1H ONE Cefepime HCl 1 gm/ Sodium 100 mls @ 200 mls/hr 08/18/17 16:00 Chloride IV Q6H PAOLA Ceftriaxone Sodium 1 g/ Sodium 100 mls @ 200 mls/hr 08/18/17 14:45 08/24/17 15:42 Chloride IV Infused Q24H PAOLA Infusion Diltiazem HCl 125 mg/ Sodium 125 mls @ 5 mls/hr 08/18/17 23:00 08/19/17 13:52 Chloride IV 0 mls/hr .Q24H PAOLA Infusion Protocol Amiodarone HCl 450 mg/ Sodium 250 mls @ 33.33 mls/hr 08/19/17 12:00 08/19/17 18:00 Chloride IV 08/19/17 18:00 0.99 mg/min .Q7H31M PAOLA 33.33 mls/hr 1 MG/MIN Infusion Amiodarone HCl 900 mg/ Sodium 500 mls @ 16.66 mls/hr 08/19/17 18:00 Chloride IV .Q24H PAOLA 0.5 MG/MIN Amiodarone HCl 150 mg/ Sodium 103 mls @ 618 mls/hr 08/19/17 11:57 08/19/17 12 :52 Chloride IV 08/19/17 12:06 Infused O ONE Infusion Potassium Chloride 10 meq in 100 mls @ 100 mls/hr 08/20/17 05:37 08/20/17 08: 07 Potassium Chloride Premix IV 08/20/17 06:36 Infused O ONE Infusion Lidocaine HCl 10 mg/ Potassium 100 mls @ 50 mls/hr 08/20/17 10:30 08/20/17 19 :55 Chloride 10 meq/ Sodium IV 08/20/17 18:57 Infused Chloride .Q2H PAOLA Infusion Sodium Chloride 1,000 mls @ 75 mls/hr 08/24/17 15:45 08/25/17 05:40 1/2 Normal Saline IV 08/25/17 05:04 Infused .[id number] PAOLA Infusion Sodium Chloride 1,000 mls @ 250 mls/hr 08/25/17 08:45 08/25/17 09:40 Normal Saline IV 08/25/17 09:44 Not Given .Q4H PAOLA Sodium Chloride 1,000 mls @ 50 mls/hr 08/26/17 12:45 09/01/17 09:29 1/2 Normal Saline IV Not Given .Q20H PAOLA Ceftriaxone Sodium 1 g/ Sodium 100 mls @ 200 mls/hr 08/26/17 16:15 08/28/17 17:12 Chloride IV Not Given Q24H PAOLA Insulin Aspart 1 - 5 unit 08/24/17 21:50 09/04/17 12:07 Novolog SQ 1 unit SS PRN Administration Hyperglycemia Protocol Levothyroxine Sodium 50 mcg 08/16/17 06:30 08/17/17 05:58 Synthroid PO 50 mcg ACB PAOLA Administration Levothyroxine Sodium 50 mcg 08/18/17 06:30 09/04/17 06:00 Synthroid PO 50 mcg ACB PAOLA Administration Lidocaine HCl 2.1 mg 08/25/17 14:30 Xylocaine-Mpf 1% Vial IJ Q24H PAOLA Lidocaine HCl 21 mg 08/25/17 14:30 08/29/17 15:47 Xylocaine-Mpf 1% Vial IJ Not Given Q24H PAOLA Memantine 10 mg 08/16/17 09:00 09/04/17 08:31 Namenda PO 10 mg BID PAOLA Administration Metoprolol Tartrate 25 mg 08/17/17 03:29 08/17/17 03:59 Lopressor PO 25 mg Q6H PRN Administration Midodrine 5 mg 08/15/17 21:00 08/17/17 08:59 Proamatine PO 5 mg TID PAOLA Administration Midodrine 5 mg 08/17/17 09:00 08/18/17 09:28 Proamatine PO 08/18/17 10:00 5 mg TID PAOLA Administration Midodrine 5 mg 08/18/17 11:00 09/04/17 12:07 Proamatine PO 5 mg 0700,1100,1500 PAOLA Administration Non-Formulary Medication 5,000 mcg 08/16/17 09:00 Cyanocobalamin (Vitamin B-12) [B-12] SL DAILY PAOLA Non-Formulary Medication 28 mg 08/16/17 09:00 Memantine Hcl [Namenda Xr] PO DAILY PAOLA Non-Formulary Medication 1 tab 08/15/17 21:00 Sitagliptin Phos/Metformin Hcl [Janumet 50-500 Mg Tablet] PO BID PAOLA Pom Janumet 50-500 1 tab 08/26/17 09:45 08/26/17 14:55 PO 1 tab DAILY PAOLA Administration Ondansetron HCl 4 mg 08/15/17 19:04 08/23/17 09:42 Zofran IVP 4 mg Q6H PRN Administration Nausea &/or vomiting Pharmacy Consult 1 each 08/21/17 22:40 Pharmacy Consult - Fall Risk 08/21/17 22:41 ONE TIME ONE Polyethylene Glycol 17 gm 08/21/17 09:00 09/04/17 08:31 Miralax PO 17 gm DAILY PAOLA Administration Potassium Chloride 40 meq 08/19/17 15:36 K-Dur 20 Meq Tablet PO 08/19/17 15:37 O ONE Potassium Chloride 40 meq 08/20/17 05:37 08/20/17 05:44 K-Dur 20 Meq Tablet PO 08/20/17 05:38 40 meq O ONE Administration Potassium Chloride 20 meq 08/20/17 17:30 08/22/17 12:14 K-Dur 20 Meq Tablet PO 20 meq TIDWM PAOLA Administration Potassium Chloride 20 meq 08/30/17 10:35 08/30/17 11:20 K-Dur 20 Meq Tablet PO 08/30/17 10:36 20 meq O ONE Administration Senna/Docusate Sodium 1 tab 08/15/17 19:04 08/26/17 09:59 Senna Plus Tablet PO 1 tab BID PRN Administration Constipation Sodium Chloride 10 - 80 ml 08/15/17 15:23 09/03/17 04:04 Iv Flush IVF 30 ml PRN PRN Administration Flushing Sodium Chloride 500 ml 08/15/17 15:35 08/21/17 02:54 Normal Saline IV 500 ml PRN PRN Administration Sodium Chloride 10 ml 08/15/17 19:04 08/24/17 15:09 Iv Flush IV 10 ml PRN PRN Administration Flushing Sodium Chloride 2 spray 08/18/17 18:44 09/04/17 12:08 Deep Sea Nasal Moisturizing [place] EA NOSTRIL 2 spray QID PAOLA Administration Sodium Phosphate 1 enema 08/22/17 10:00 Fleet Enema [place] PRN PRN Vancomycin HCl 125 mg 08/29/17 21:00 09/04/17 08:31 Vancomycin Oral Liq PO 09/08/17 20:59 125 mg Q6HR PAOLA Administration - Urinary Catheter Management Urethral Cath placed during this visit: no Results 09/04/17 04:50 09/04/17 04:50 CBC 09/04/17 Range/Units 04:50 WBC 8.4 (4.5-11.0) T/MM3 RBC 3.42 L (4.00-5.20) M/MM3 Hgb 10.4 L (12-16) GM/DL Hct 32.9 L (36-46) % Plt Count 263 (130-400) T/MM3 Neut # (Auto) 5.3 (1.8-7.7) T/MM3 Lymph # (Auto) 2.0 (1-4.8) T/MM3 Lewis # (Auto) 0.6 (0-0.8) T/MM3 Eos # (Auto) 0.4 (0-0.5) T/MM3 Baso # (Auto) 0.1 (0-0.2) T/MM3 Comprehensive Metabolic Panel 09/04/17 Range/Units 04:50 Sodium 143 (134-144) MEQ/L Potassium 4.1 (3.6-5) MEQ/L Chloride 105 (98-107) MEQ/L Carbon Dioxide 27 (22-30) MEQ/L BUN 20.0 H (7-17) MG/DL Creatinine 0.9 (0.7-1.2) mg/dL Glucose 123 H (65-110) MG/DL Calcium 9.2 (8.4-10.2) MG/DL Intake and Output 09/04/17 09/04/17 09/04/17 06:59 14:59 22:59 Output Total 175 / 175 Balance -175 / -175 Output: Urine Amount (Catheter) 175 / 175 Other: Urine Appearance Clear Urine Color Dark Dede Weight 61.9 kg Patient Weight 09/05/17 06:59 Weight 61.9 kg Assessment and Plan - Assessment and Plan (1) Atrial fibrillation with RVR Status: Acute (2) Atherosclerotic heart disease of [place] coronary artery without angina pectoris Status: Chronic (3) Nonrheumatic aortic valve stenosis Status: Chronic (4) Syncope and collapse Status: Chronic (5) Hypotension Status: Chronic (6) Type 2 diabetes mellitus without complications Status: Chronic (7) Diastolic CHF Status: Acute - Attestation Attestation Narrative: 09/04/17 15:16 Recommendation After examining the patient I agree with the above assessment. I am involved in the formulation of the patient's plan of care. Hospital Course Summary Disclaimer: The visit summary below is not to be considered part of the above Progress Note.
--- NOTE | 2017-08-29 11:45 | Progress Note ---
- Date 08/29/17 Subjective: Naseem is seen today in follow up. She is up in chair, a bit sleepy, but awakens easily and does not have any c/o. Denies any pain. Does not appear she has eaten much breakfast at the time of this exam. Objective Vital signs: Temperature 97 F 08/29/17 08:00 Pulse Rate 93 08/29/17 08:00 Respiratory Rate 18 08/29/17 08:00 Blood Pressure 102/65 08/29/17 08:00 Pulse Oximetry 95 08/29/17 08:00 Rhythm: Atrial Fibrillation with Normal Ventricular Rate Height/Weight/BMI: Height 1.65 m Weight 61.8 kg Body Mass Index 25.2 - Constitutional Present: no acute distress, average body habitus, cooperative - Routine HEENT Exam Head: Present: normocephalic, atraumatic Eye: Present: EOMI, PERRL - Routine Respiratory Exam Present: CTA bilaterally. Absent: rales, rhonchi, wheezes, crackles - Routine Cardiovascular Exam Present: RRR (Currently regular upon exam), S1, S2, murmur (Aortic murmur is in place) - Routine Abdominal Exam Present: soft, normoactive bowel sounds, non distended, non tender - Routine Extremities Exam Present: no edema, non tender - Routine Musculoskeletal Exam Musculoskeletal: Present: moving extremities well - Routine Skin Exam Present: intact, dry, warm - Routine Psychiatric Exam Present: cooperative (Confused. ). Absent: good insight, good judgment Results - Labs CBC & Chem 7: 08/29/17 04:16 08/29/17 04:16 Microbiology Results: Microbiology 08/25/17 15:20 Urine, Cath Ramirez Urine Culture - Final Ruchi albicans - Imaging and Cardiology Chest x-ray Additional comments: Impression: Stable appearance of the chest. . Assessment and Plan (1) Sepsis Current visit: Yes Status: Acute Assessment and Plan: Assessment Sepsis secondary to UTI as indicated by tachycardia, fever, altered level of consciousness and hypotension. UTI - Recurrent, frequent -- E coli growing from culture 08/14/17 Chronic urinary retention--Indwelling Ramirez - since 02/2017 - changed 08/15/17. Encephalopathy -secondary to sepsis and UTI Pulmonary edema Bilateral pleural effusions - 08/18/17 Acute hypoxic respiratory insufficiency secondary to pulmonary edema Hypernatremia (not POA) Hypokalemia (not POA) Generalized weakness and debility - Acute due to illness Paroxysmal atrial fibrillation Developed RVR 08/18 S/P Cardioversion on 08/19 A-fib 08/25 Severe aortic stenosis Orthostatic hypotension Diabetes mellitus, type 2 CAD H/O Chronic kidney disease, stage III. Hypothyroidism Dementia Chronic constipation Osteoarthritis Hx DVT Hx CVA- 2011 Obstipation Plan 08/29/17 Ceftriaxone DC'd yesterday. She appears to be doing well. Afebrile. Mild leukocytosis resolved. Mental status is a bit improved today- she is more conversive. HR is regular at the time of my exam. No evidence of edema. CXR looks good. BG well controlled. Continue supportive medication. Follow up labs in AM. Still not eating or drinking much- continue gentle IVF for now. Weight is down a bit, but overall is stable. Remains weak, will need continuous care upon dismissal. DVT Prophylaxis: SCD's, Lovenox Resuscitation Status: Do Not Resuscitate - Physician Narrative Physician: Jolene Box MD Narrative: Date: 08/29/17 Time: 0 I have independently evaluated and examined this patient. I reviewed the chart, the patient's history, and the G[employer]W OPERATOR/PA's documented findings as above. We discussed and formulated the assessment and plan as above with additions as below: Mrs. La was up in a chair and when awake when seen this morning. She asked where her daughter was later told me should keep her blueberries for tomorrow. She was speaking in full sentences. She denied dyspnea but acknowledged that her appetite wasn't very good. Subsequently noted to be sleeping again and the patient was somnolent when I visited this afternoon when Mariajose was present. Nursing reports to his stools earlier today. NAD, variable level of consciousness but more alert this morning then I have seen her this week Respirations nonlabored, decreased inspiratory effort but breath sounds are clear Abdomen soft, nontender Telemetry strips reviewed-in atrial fibrillation with controlled rate now and most of the day, sinus rhythm earlier. Chest x-ray reviewed by myself-NAD. Continue supportive care; minimal oral intake. Continue IV fluids with about 1 L fluid daily and encourage oral intake. Patient may be more responsive in her home environment then she is here. Discussed with patient's daughter Mariajose, discussed with case management, discussed with nursing. Hospital Course Summary Disclaimer: The visit summary below is not to be considered part of the above Progress Note. Hospital Course: 08/15/[address] [facility] status under the care of Dr. Martinez. 1L NS initiated in ED. Will continue NS 100cc/hr for hydration. Cefepime 1g IV given in ED. Continue empiric coverage for urinary pathogens with Cefepime IV Q6H. UA culture from 08/14/17 revealing gram negative rods. Monitor for sensitives and new UA culture results. Blood culture obtained and results pending. Monitor closely on telemetry. Continue home medications. Monitor blood pressure closely. Monitor daily weight and urinary output closely for signs of fluid overload. Renal function stable. Upon discharge, patient's care will be returned to Dr Caballero. Patient is a DNR. 08/17/17 Sepsis secondary to UTI as indicated by tachycardia, fever, altered level of consciousness and hypotension. -IVF -Repeat lactate-normalized -Mental status improving UTI -Recurrent, frequent -Indwelling Ramirez- since 02/2017 - changed 08/15/17. -On cefepime -Bl cx NGTD -Urine cx from 08/15 NGTD, the one done on 08/14 growing E. coli sensitive to cefepime Altered level of consciousness. -This is usual for her when she gets an UTI per daughter -She does have underlying dementia -This is improved today Generalized weakness and debility. -Due to UTI -consult PT PAF -Not on OAC -Metoprolol 25mg q6hr prn started by nighttime MD -With her hypotension, she may not tolerate this. -Will try low dose digoxin and monitor History of CVA - 2011. -On aspirin and Plavix Dementia. -On Namenda XR Hypothyroid -continue levothyroxine -Last free T4 1.84 in November 2016 Severe aortic stenosis. -SKYE 0.7cm2 per HC 08/2016 Orthostatic hypotension -Continue midodrine History of DVT to left arm. -S/P Mechanical clot removal Diabetes mellitus, type 2. -Continue Janumet -Last A1C I can find was in november 2016 and was 5.3% Constipation. -On Colace daily H/O Chronic kidney disease, stage III. -Creatinine normal here and I do not see any elevations in recent history CAD -H/O stents 2016 -HC 08/2016 showing LVEF 65%, SKYE 0.7cm2, 70-80% LAD, 30% LCx, 70-75% RCA -CHRIS to RCA 09/2016 -CHRIS to LAD 01/2017 Hypothyroidism. -Continue levothyroxine Osteoarthritis. 08/18/17 Oxygen needs continue to increase. Chest X-ray this morning does revel small bilateral pleural effusions and pulmonary edema. Lasix 40 mg IV x1 given this morning, will give repeat 40mg IV Lasix this evening. IVF stopped. Continue to monitor urinary output via Ramirez cath (chronic- changed 08/15) Trend daily weights. she is up 5 Kg from admission Change cefepime for ceftriaxone for treatment of Ecoli UTI. Continue to monitor Accu-Cheks Recheck CBC in am due to UTI/Resolving sepsis. Will recheck BMP in am secondary to Lasix use. Lovenox subcutaneous daily for DVT prophylaxis 08/19/17 Transferred to CCU overnight secondary to Afib with RVR, diltiazem drip started. HR showing improvement. Will consult with Dr Vanessa for treatment recommendations for afib. Digoxin level slightly subtherapeutic at 0.7 - could be increased. Will continue with Rocephin for urinary coverage. Lasix 20mg IV x1 to help mobilize pulmonary edema. Will recheck CXR in am. Weight trending down. Output increased with Lasix yesterday. Continue with supplemental O2, weaning as able. Encourage oral intake. 08/20/17 Will start KCL bolus at 50cc/hr as potassium with significant decrease due to Lasix. Weight with decreased. CXR without change, but O2 sats improved with less O2 flow (3L). Continue ceftriaxone for urinary coverage. Encouraging that oral drive increasing. Likely transfer to medical floor later today. Will have PT/OT restart work tomorrow. 08/21/17 CXR showing gradual improvement. O2 needs decreasing (down to 2L, and weaning). Creatinine stable. Potassium improved to 3.7. Will decrease IV Lasix to 40mg twice a day - worry for overdiuresis with patients decreased oral drive. Diamox 500mg x1 as CO2 increasing. Encourage oral intake. Encourage activities with therapy. Will continue Rocephin for urinary coverage. 08/22/17 Continued improvement in CXR and O2 need. Patient still somnolent. Nursing working on increasing bowel motivation. Weight with decrease and creatinine increased to 1.3 -- will stop IV Lasix. Continue Rocephin. Encourage activities and therapy. 08/23/17 Patient still somnolent. Leukocytosis increasing 9.8-->11.9-->13.1 despite continuation of ceftriaxone for UTI (+ sensitivity for ceftriaxone on C&S). Check CXR. Remains in NSR at this time. Continues amiodarone . Cardiology following. Patient with minimal intake. Is on fluid restriction d/t recent fluid overload , but pt isn't taking much po. May consider IVF's if she isn't taking more p.o. 08/24/17 Patient remains somnolent but oral intake is improved today and she is acknowledging examiner also improved from yesterday. Will attempt to get patient up in chair today; PT/OT can attempt ambulation tomorrow. Leukocytosis improved today-may have aspirated with emesis 2 days ago but no indication of aspiration pneumonitis by x-ray. Day 7 ceftriaxone for UTI. Sodium up to 147, BUN up further today. Conjunction with poor oral intake and laboratory signs of dehydration will hydrate with 1 L 1/2 NS. Remains in sinus rhythm by my review of telemetry and exam. Persistent encephalopathy-increase activity as tolerates. Avoid sedating medications. Continue vitamin B 12-will resume oral administration at discharge. Blood sugars stable; blood pressure borderline low-reassess after fluids. 08/25/17 Somnolent, confused. Poor intake with supper last night. Persistent hypernatremia with mild improvement. BUN also improved. Tele reviewed - shows A-fib with normal rate. She went into a-fib around 0500. Hypotension with BP 87/59, UO overall poor over the last few days - give NS 250 mL bolus. CXR from 08/23 reviewed - pulm edema noted; will need to monitor resp status/sats closely. Rocephin day #8 for E. coli UTI. Repeat UC from 08/15 was neg. 08/26/17 Continues to be somnolent, confused. Poor intake. Persistent hypernatremia. Daughter ok with placing midline and starting IVF's. Has remained in NSR since 8am yesterday. UA, performed yesterday d/t somnolence and questionable abdominal pain, + for leuks and bacteria. Urine culture pending. Rocephin day #9 for E. coli UTI. 08/28/17 *CT completed yesterday- possible LLL pneumonia. No intra-abdominal pathology She is not symptomatic, and not febrile. Mild bump in WBC since taken off Ceftriaxone yesterday. Will hold off on restarting abx- Repeat CXR and Labs in AM and monitor for fever. *Weight has stabilized with decrease in IVF. She does not appear overloaded at this time. Will monitor closely due to severe A.S., risk of pulmonary edema. Labs do look a bit better today. She is still not taking much in by mouth. HR is controlled- continue current. Remains in SR at this time. Continue low dose Midodrine for BP support. She remains confused, weak, and deconditioned. DC planning- May benefit from SNU ? 08/29/17 Ceftriaxone DC'd yesterday. She appears to be doing well. Afebrile. Mild leukocytosis resolved. Mental status is a bit improved today- she is more conversive. HR is regular at the time of my exam. No evidence of edema. CXR looks good. BG well controlled. Continue supportive medication. Follow up labs in AM. Still not eating or drinking much- continue gentle IVF for now. Weight is down a bit, but overall is stable. Remains weak, will need continuous care upon dismissal.
[2017-08-29] MEDS: LIDOCAINE 1% (10mg/ml) 5ml PF SDV IJ SCH (15:47)
[2017-08-29] MEDS: VANCOMYCIN 250mg/5ml ORAL LIQ PO SCH (23:33)
[2017-08-30] MEDS: 1/2 NS 1,000 ML IV SCH ×2 (00:50→22:14)
[2017-08-30] MEDS: VANCOMYCIN 250mg/5ml ORAL LIQ PO SCH ×4 (03:57→22:14)
[2017-08-30] MEDS: LEVOTHYROXINE 50 MCG TABLET PO SCH (06:10)
[2017-08-30] MEDS: MIDODRINE 5 MG TABLET PO SCH ×3 (06:10→14:27)
[2017-08-30] MEDS: AMIODARONE 200 MG TABLET PO SCH (10:18)
[2017-08-30] MEDS: MEMANTINE 10 MG TABLET PO SCH ×2 (10:18→22:13)
[2017-08-30] MEDS: ASPIRIN *EC* 81 MG TABLET PO SCH (10:19)
[2017-08-30] MEDS: CLOPIDOGREL 75 MG TABLET PO SCH (10:19)
[2017-08-30] MEDS: ENOXAPARIN 40 MG/0.4 ML INJECTION SQ SCH (10:19)
[2017-08-30] MEDS: POLYETHYL GLYCOL 3350 17gm PACKET PO SCH (10:20)
[2017-08-30] MEDS: SALINE 0.65% NASAL SPRAY 44 ML BOTTLE EA NOSTRIL SCH ×4 (10:21→22:13)
--- NOTE | 2017-08-30 10:28 | Progress Note ---
- Date 08/30/17 Subjective: JOHNY was in her bedside chair. She was resting comfortably with her eyes closed. She did not awaken with verbal or tactile stimulation. She occasionally grimaced her face but there was no pattern with palpation. Nursing staff report that she's been somnolent with an ongoing poor appetite. She's had one loose bowel movement so far today. Objective Vital signs: Temperature 95.6 F L 08/30/17 08:00 Pulse Rate 62 08/30/17 08:00 Respiratory Rate 16 08/30/17 08:00 Blood Pressure 108/61 08/30/17 08:00 Pulse Oximetry 97 08/30/17 08:00 Rhythm: Atrial Fibrillation with Normal Ventricular Rate Height/Weight/BMI: Height 1.65 m Weight 61.8 kg Body Mass Index 25.2 - Constitutional Present: no acute distress, well nourished, well developed - Routine HEENT Exam Head: Present: normocephalic - Routine Respiratory Exam Present: CTA bilaterally - Routine Cardiovascular Exam Present: RRR, S1, S2, murmur - Routine Abdominal Exam Present: normoactive bowel sounds, distended - Routine Extremities Exam Present: no edema, pulses intact - Routine Skin Exam Present: intact, dry, warm - Routine Neurological Exam Absent: alert, oriented X3 - Routine Psychiatric Exam Present: unable to assess Results - Labs CBC & Chem 7: 08/29/17 04:16 08/30/17 03:56 Microbiology Results: Microbiology 08/25/17 15:20 Urine, Cath Ramirez Urine Culture - Final Rosalba albicans Assessment and Plan (1) Sepsis Current visit: Yes Status: Acute Assessment and Plan: Assessment Sepsis secondary to UTI as indicated by tachycardia, fever, altered level of consciousness and hypotension. UTI - Recurrent, frequent -- E coli on culture 08/14/17 - course of ceftriaxone completed C. difficile - diagnosed 08/29/17, PO vanco initiated Chronic urinary retention--Indwelling Ramirez - since 02/2017 - changed 08/15/17. Encephalopathy -secondary to sepsis and UTI and C. difficile Pulmonary edema Bilateral pleural effusions - 08/18/17 Acute hypoxic respiratory insufficiency secondary to pulmonary edema Hypernatremia (not POA) Hypokalemia (not POA) Generalized weakness and debility - Acute due to illness Paroxysmal atrial fibrillation Developed RVR 08/18 S/P Cardioversion on 08/19 A-fib 08/25 Severe aortic stenosis Orthostatic hypotension Diabetes mellitus, type 2 CAD H/O Chronic kidney disease, stage III. Hypothyroidism Dementia Chronic constipation Osteoarthritis Hx DVT Hx CVA- 2011 Obstipation Plan 08/30/17 Continue oral vancomycin for C. difficile. This was started on 08/29/17. Antibiotics for UTI have been discontinued. Mild hypokalemia at 3.5 - replace orally. Mg level stable at 1.9. Continue gentle IVF - appetite & oral intake still poor. DVT Prophylaxis: SCD's, Lovenox Resuscitation Status: Do Not Resuscitate - Physician Narrative Physician: Jolene Box MD Narrative: Date: 08/30/17 Time: 1520 I have independently evaluated and examined this patient. I reviewed the chart, the patient's history, and the PROGRAMS MANAGER/PA's documented findings as above. We discussed and formulated the assessment and plan as above with additions as below: JOHNY was resting after nursing had changed her (smear of stool, no longer having large volume diarrhea). She was very somnolent but awoke briefly and enough to tell me that she was having some pain here and there; nursing reports that she was alert enough to eat some breakfast this morning but didn't eat or drink anything at lunchtime. Patient advised me that she was waiting until suppertime. Drowsy, minimally interactive, generalized pallor Respirations nonlabored, abdomen soft, nontender Much less interactive than she was without her yesterday morning, more consistent with prior days. Telemetry strips reviewed-intermittent A. fib with rate control/sinus rhythm. Little overall progress. Hospital Course Summary Disclaimer: The visit summary below is not to be considered part of the above Progress Note. Hospital Course: 08/15/17 [facility] the care of Dr. Martinez. 1L NS initiated in ED. Will continue NS 100cc/hr for hydration. Cefepime 1g IV given in ED. Continue empiric coverage for urinary pathogens with Cefepime IV Q6H. UA culture from 08/14/17 revealing gram negative rods. Monitor for sensitives and new UA culture results. Blood culture obtained and results pending. Monitor closely on telemetry. Continue home medications. Monitor blood pressure closely. Monitor daily weight and urinary output closely for signs of fluid overload. Renal function stable. Upon discharge, patient's care will be returned to Dr Caballero. Patient is a DNR. 08/17/17 Sepsis secondary to UTI as indicated by tachycardia, fever, altered level of consciousness and hypotension. -IVF -Repeat lactate-normalized -Mental status improving UTI -Recurrent, frequent -Indwelling Ramirez- since 02/2017 - changed 08/15/17. -On cefepime -Bl cx NGTD -Urine cx from 08/15 NGTD, the one done on 08/14 growing E. coli sensitive to cefepime Altered level of consciousness. -This is usual for her when she gets an UTI per daughter -She does have underlying dementia -This is improved today Generalized weakness and debility. -Due to UTI -consult PT PAF -Not on OAC -Metoprolol 25mg q6hr prn started by nighttime MD -With her hypotension, she may not tolerate this. -Will try low dose digoxin and monitor History of CVA - 2011. -On aspirin and Plavix Dementia. -On Namenda XR Hypothyroid -continue levothyroxine -Last free T4 1.84 in November 2016 Severe aortic stenosis. -SKYE 0.7cm2 per 08/2016 Orthostatic hypotension -Continue midodrine History of DVT to left arm. -S/P Mechanical clot removal Diabetes mellitus, type 2. -Continue Janumet -Last A1C I can find was in november 2016 and was 5.3% Constipation. -On Colace daily H/O Chronic kidney disease, stage III. -Creatinine normal here and I do not see any elevations in recent history CAD -H/O stents 2016 -HC 08/2016 showing LVEF 65%, SKYE 0.7cm2, 70-80% LAD, 30% LCx, 70-75% RCA -CHRIS to RCA 09/2016 -CHRIS to LAD 01/2017 Hypothyroidism. -Continue levothyroxine Osteoarthritis. 08/18/17 Oxygen needs continue to increase. Chest X-ray this morning does revel small bilateral pleural effusions and pulmonary edema. Lasix 40 mg IV x1 given this morning, will give repeat 40mg IV Lasix this evening. IVF stopped. Continue to monitor urinary output via Ramirez cath (chronic- changed 08/15) Trend daily weights. she is up 5 Kg from admission Change cefepime for ceftriaxone for treatment of Ecoli UTI. Continue to monitor Accu-Cheks Recheck CBC in am due to UTI/Resolving sepsis. Will recheck BMP in am secondary to Lasix use. Lovenox subcutaneous daily for DVT prophylaxis 08/19/17 Transferred to CCU overnight secondary to Afib with RVR, diltiazem drip started. HR showing improvement. Will consult with Dr Vanessa for treatment recommendations for afib. Digoxin level slightly subtherapeutic at 0.7 - could be increased. Will continue with Rocephin for urinary coverage. Lasix 20mg IV x1 to help mobilize pulmonary edema. Will recheck CXR in am. Weight trending down. Output increased with Lasix yesterday. Continue with supplemental O2, weaning as able. Encourage oral intake. 08/20/17 Will start KCL bolus at 50cc/hr as potassium with significant decrease due to Lasix. Weight with decreased. CXR without change, but O2 sats improved with less O2 flow (3L). Continue ceftriaxone for urinary coverage. Encouraging that oral drive increasing. Likely transfer to medical floor later today. Will have PT/OT restart work tomorrow. 08/21/17 CXR showing gradual improvement. O2 needs decreasing (down to 2L, and weaning). Creatinine stable. Potassium improved to 3.7. Will decrease IV Lasix to 40mg twice a day - worry for overdiuresis with patients decreased oral drive. Diamox 500mg x1 as CO2 increasing. Encourage oral intake. Encourage activities with therapy. Will continue Rocephin for urinary coverage. 08/22/17 Continued improvement in CXR and O2 need. Patient still somnolent. Nursing working on increasing bowel motivation. Weight with decrease and creatinine increased to 1.3 -- will stop IV Lasix. Continue Rocephin. Encourage activities and therapy. 08/23/17 Patient still somnolent. Leukocytosis increasing 9.8-->11.9-->13.1 despite continuation of ceftriaxone for UTI (+ sensitivity for ceftriaxone on C&S). Check CXR. Remains in NSR at this time. Continues amiodarone . Cardiology following. Patient with minimal intake. Is on fluid restriction d/t recent fluid overload , but pt isn't taking much po. May consider IVF's if she isn't taking more p.o. 08/24/17 Patient remains somnolent but oral intake is improved today and she is acknowledging examiner also improved from yesterday. Will attempt to get patient up in chair today; PT/OT can attempt ambulation tomorrow. Leukocytosis improved today-may have aspirated with emesis 2 days ago but no indication of aspiration pneumonitis by x-ray. Day 7 ceftriaxone for UTI. Sodium up to 147, BUN up further today. Conjunction with poor oral intake and laboratory signs of dehydration will hydrate with 1 L 1/2 NS. Remains in sinus rhythm by my review of telemetry and exam. Persistent encephalopathy-increase activity as tolerates. Avoid sedating medications. Continue vitamin B 12-will resume oral administration at discharge. Blood sugars stable; blood pressure borderline low-reassess after fluids. 08/25/17 Somnolent, confused. Poor intake with supper last night. Persistent hypernatremia with mild improvement. BUN also improved. Tele reviewed - shows A-fib with normal rate. She went into a-fib around 0500. Hypotension with BP 87/59, UO overall poor over the last few days - give NS 250 mL bolus. CXR from 08/23 reviewed - pulm edema noted; will need to monitor resp status/sats closely. Rocephin day #8 for E. coli UTI. Repeat UC from 08/15 was neg. 08/26/17 Continues to be somnolent, confused. Poor intake. Persistent hypernatremia. Daughter ok with placing midline and starting IVF's. Has remained in NSR since 8am yesterday. UA, performed yesterday d/t somnolence and questionable abdominal pain, + for leuks and bacteria. Urine culture pending. Rocephin day #9 for E. coli UTI. 08/27/17 Repeat UC from 08/25 was positive for rosalba. Will DC Rocephin, s/p 9 days of treatment. Change Ramirez. Na remains elevated at 146 despite starting 1/2NS yesterday. BUN decreased from 43 to 40. Weight is starting to increase; need to monitor closely for pulmonary edema as she required diuresis earlier in her hospital course. Reduce rate of IVF. PAF - continue increased dose of amiodarone. Currently in sinus. Continue therapy as able; pt is limited cognitively and physically. 08/28/17 *CT completed yesterday- possible LLL pneumonia. No intra-abdominal pathology She is not symptomatic, and not febrile. Mild bump in WBC since taken off Ceftriaxone yesterday. Will hold off on restarting abx- Repeat CXR and Labs in AM and monitor for fever. *Weight has stabilized with decrease in IVF. She does not appear overloaded at this time. Will monitor closely due to severe A.S., risk of pulmonary edema. Labs do look a bit better today. She is still not taking much in by mouth. HR is controlled- continue current. Remains in SR at this time. Continue low dose Midodrine for BP support. 08/29/17 Ceftriaxone DC'd yesterday. She appears to be doing well. Afebrile. Mild leukocytosis resolved. Mental status is a bit improved today- she is more conversive. HR is regular at the time of my exam. No evidence of edema. CXR looks good. BG well controlled. Continue supportive medication. Follow up labs in AM. Still not eating or drinking much- continue gentle IVF for now. Weight is down a bit, but overall is stable. 08/30/17 Continue oral vancomycin for C. difficile. This was started on 08/29/17. Antibiotics for UTI have been discontinued. Mild hypokalemia at 3.5 - replace orally. Mg level stable at 1.9. Continue gentle IVF - appetite & oral intake still poor.
[2017-08-30] MEDS: CEFTRIAXONE 1 G INJECTION IM SCH (12:26)
[2017-08-31] MEDS: VANCOMYCIN 250mg/5ml ORAL LIQ PO SCH ×4 (03:30→21:07)
--- NOTE | 2017-08-31 09:33 | Progress Note ---
- Date 08/31/17 Subjective: JOHNY was resting in bed, but today easily awakened when greeted by name. She welcomed me with a smile and said hello. She apologized because she didn't remember who I was. She states that she is feeling better today. She denies any pain or difficulty breathing. She denies any nausea or abdominal pain. She complains of being sleepy and is not ready to order breakfast yet. As I left she thanked me for stopping by. Objective Vital signs: Temperature 97.4 F 08/31/17 00:00 Pulse Rate 94 08/31/17 00:00 Respiratory Rate 16 08/31/17 00:00 Blood Pressure 104/63 08/31/17 00:00 Pulse Oximetry 94 08/31/17 00:00 Rhythm: Atrial Fibrillation with Normal Ventricular Rate Height/Weight/BMI: Height 1.65 m Weight 61.8 kg Body Mass Index 25.2 - Constitutional Present: no acute distress, well nourished, well developed - Routine HEENT Exam Head: Present: normocephalic Eye: Absent: conjunctival icterus, scleral injection ENT: Present: mucous membranes moist - Routine Respiratory Exam Present: CTA bilaterally - Routine Cardiovascular Exam Present: murmur, irregularly irregular - Routine Abdominal Exam Present: soft, normoactive bowel sounds, non distended, non tender - Routine Extremities Exam Present: no edema - Routine Skin Exam Present: intact, dry, warm - Routine Neurological Exam Present: alert, normal speech. Absent: oriented X3 (to self) - Routine Psychiatric Exam Present: cooperative Results - Labs CBC & Chem 7: 08/31/17 04:08 08/31/17 06:31 Microbiology Results: Microbiology 08/25/17 15:20 Urine, Cath Ramirez Urine Culture - Final Rosalba albicans Assessment and Plan (1) Sepsis Current visit: Yes Status: Acute Assessment and Plan: Assessment Sepsis secondary to UTI as indicated by tachycardia, fever, altered level of consciousness and hypotension. UTI - Recurrent, frequent -- E coli on culture 08/14/17 - course of ceftriaxone completed C. difficile - diagnosed 08/29/17, PO vanco initiated Chronic urinary retention--Indwelling Ramirez - since 02/2017 - changed 08/15/17. Encephalopathy -secondary to sepsis and UTI and C. difficile Pulmonary edema Bilateral pleural effusions - 08/18/17 Acute hypoxic respiratory insufficiency secondary to pulmonary edema Hypernatremia (not POA) Hypokalemia (not POA) Generalized weakness and debility - Acute due to illness Paroxysmal atrial fibrillation Developed RVR 08/18 S/P Cardioversion on 08/19 A-fib 08/25 Severe aortic stenosis Orthostatic hypotension Diabetes mellitus, type 2 CAD H/O Chronic kidney disease, stage III. Hypothyroidism Dementia Chronic constipation Osteoarthritis Hx DVT Hx CVA- 2011 Obstipation Plan 08/31/17 More awake and conversational today, but appetite and oral intake remains poor. Continue low volume half-normal saline. Continue oral vancomycin for C. difficile. This was started on 08/29/17. She had 2 bowel movements yesterday. Potassium level has been corrected to 3.9 today. Will discuss discharge plans with attending. DVT Prophylaxis: Lovenox Resuscitation Status: Do Not Resuscitate - Physician Narrative Physician: Jolene Box MD Narrative: Date: 08/31/17 Time: 1545 I have independently evaluated and examined this patient. I reviewed the chart, the patient's history, and the PEARLER/PA's documented findings as above. We discussed and formulated the assessment and plan as above with additions as below: JOHNY was sleeping soundly when seen late morning; she did not awaken to exam or voice. Nursing reported that she's had no stools today and did not have any overnight. She ate a small amount of breakfast and improved level of consciousness/alertness with appropriate speech earlier today noted and encouraging but not persistent. Respirations nonlabored, diminished airflow Abdomen soft, nontender, bowel sounds present but diminished Laboratory data unremarkable. Tolerating oral vancomycin well. Oral intake remains poor. If Mariajose is present this afternoon I will again discuss future plans with her in consideration of discharge home in the next 1-2 days and reconsideration of home hospice. Hospital Course Summary Disclaimer: The visit summary below is not to be considered part of the above Progress Note. Hospital Course: [facility] the care of Dr. Martinez. 1L NS initiated in ED. Will continue NS 100cc/hr for hydration. Cefepime 1g IV given in ED. Continue empiric coverage for urinary pathogens with Cefepime IV Q6H. UA culture from 08/14/17 revealing gram negative rods. Monitor for sensitives and new UA culture results. Blood culture obtained and results pending. Monitor closely on telemetry. Continue home medications. Monitor blood pressure closely. Monitor daily weight and urinary output closely for signs of fluid overload. Renal function stable. Upon discharge, patient's care will be returned to Dr Caballero. Patient is a DNR. 08/17/17 Sepsis secondary to UTI as indicated by tachycardia, fever, altered level of consciousness and hypotension. -IVF -Repeat lactate-normalized -Mental status improving UTI -Recurrent, frequent -Indwelling Ramirez- since 02/2017 - changed 08/15/17. -On cefepime -Bl cx NGTD -Urine cx from 08/15 NGTD, the one done on 08/14 growing E. coli sensitive to cefepime Altered level of consciousness. -This is usual for her when she gets an UTI per daughter -She does have underlying dementia -This is improved today Generalized weakness and debility. -Due to UTI -consult PT PAF -Not on OAC -Metoprolol 25mg q6hr prn started by nighttime MD -With her hypotension, she may not tolerate this. -Will try low dose digoxin and monitor History of CVA - 2011. -On aspirin and Plavix Dementia. -On Namenda XR Hypothyroid -continue levothyroxine -Last free T4 1.84 in November 2016 Severe aortic stenosis. -SKYE 0.7cm2 per HC 08/2016 Orthostatic hypotension -Continue midodrine History of DVT to left arm. -S/P Mechanical clot removal Diabetes mellitus, type 2. -Continue Janumet -Last A1C I can find was in november 2016 and was 5.3% Constipation. -On Colace daily H/O Chronic kidney disease, stage III. -Creatinine normal here and I do not see any elevations in recent history CAD -H/O stents 2016 -HC 08/2016 showing LVEF 65%, SKYE 0.7cm2, 70-80% LAD, 30% LCx, 70-75% RCA -CHRIS to RCA 09/2016 -CHRIS to LAD 01/2017 Hypothyroidism. -Continue levothyroxine Osteoarthritis. 08/18/17 Oxygen needs continue to increase. Chest X-ray this morning does revel small bilateral pleural effusions and pulmonary edema. Lasix 40 mg IV x1 given this morning, will give repeat 40mg IV Lasix this evening. IVF stopped. Continue to monitor urinary output via Ramirez cath (chronic- changed 08/15) Trend daily weights. she is up 5 Kg from admission Change cefepime for ceftriaxone for treatment of Ecoli UTI. Continue to monitor Accu-Cheks Recheck CBC in am due to UTI/Resolving sepsis. Will recheck BMP in am secondary to Lasix use. Lovenox subcutaneous daily for DVT prophylaxis 08/19/17 Transferred to CCU overnight secondary to Afib with RVR, diltiazem drip started. HR showing improvement. Will consult with Dr Vanessa for treatment recommendations for afib. Digoxin level slightly subtherapeutic at 0.7 - could be increased. Will continue with Rocephin for urinary coverage. Lasix 20mg IV x1 to help mobilize pulmonary edema. Will recheck CXR in am. Weight trending down. Output increased with Lasix yesterday. Continue with supplemental O2, weaning as able. Encourage oral intake. 08/20/17 Will start KCL bolus at 50cc/hr as potassium with significant decrease due to Lasix. Weight with decreased. CXR without change, but O2 sats improved with less O2 flow (3L). Continue ceftriaxone for urinary coverage. Encouraging that oral drive increasing. Likely transfer to medical floor later today. Will have PT/OT restart work tomorrow. 08/21/17 CXR showing gradual improvement. O2 needs decreasing (down to 2L, and weaning). Creatinine stable. Potassium improved to 3.7. Will decrease IV Lasix to 40mg twice a day - worry for overdiuresis with patients decreased oral drive. Diamox 500mg x1 as CO2 increasing. Encourage oral intake. Encourage activities with therapy. Will continue Rocephin for urinary coverage. 08/22/17 Continued improvement in CXR and O2 need. Patient still somnolent. Nursing working on increasing bowel motivation. Weight with decrease and creatinine increased to 1.3 -- will stop IV Lasix. Continue Rocephin. Encourage activities and therapy. 08/23/17 Patient still somnolent. Leukocytosis increasing 9.8-->11.9-->13.1 despite continuation of ceftriaxone for UTI (+ sensitivity for ceftriaxone on C&S). Check CXR. Remains in NSR at this time. Continues amiodarone . Cardiology following. Patient with minimal intake. Is on fluid restriction d/t recent fluid overload , but pt isn't taking much po. May consider IVF's if she isn't taking more p.o. 08/24/17 Patient remains somnolent but oral intake is improved today and she is acknowledging examiner also improved from yesterday. Will attempt to get patient up in chair today; PT/OT can attempt ambulation tomorrow. Leukocytosis improved today-may have aspirated with emesis 2 days ago but no indication of aspiration pneumonitis by x-ray. Day 7 ceftriaxone for UTI. Sodium up to 147, BUN up further today. Conjunction with poor oral intake and laboratory signs of dehydration will hydrate with 1 L 1/2 NS. Remains in sinus rhythm by my review of telemetry and exam. Persistent encephalopathy-increase activity as tolerates. Avoid sedating medications. Continue vitamin B 12-will resume oral administration at discharge. Blood sugars stable; blood pressure borderline low-reassess after fluids. 08/25/17 Somnolent, confused. Poor intake with supper last night. Persistent hypernatremia with mild improvement. BUN also improved. Tele reviewed - shows A-fib with normal rate. She went into a-fib around 0500. Hypotension with BP 87/59, UO overall poor over the last few days - give NS 250 mL bolus. CXR from 08/23 reviewed - pulm edema noted; will need to monitor resp status/sats closely. Rocephin day #8 for E. coli UTI. Repeat UC from 08/15 was neg. 08/26/17 Continues to be somnolent, confused. Poor intake. Persistent hypernatremia. Daughter ok with placing midline and starting IVF's. Has remained in NSR since 8am yesterday. UA, performed yesterday d/t somnolence and questionable abdominal pain, + for leuks and bacteria. Urine culture pending. Rocephin day #9 for E. coli UTI. 08/27/17 Repeat UC from 08/25 was positive for rosalba. Will DC Rocephin, s/p 9 days of treatment. Change Ramirez. Na remains elevated at 146 despite starting 1/2NS yesterday. BUN decreased from 43 to 40. Weight is starting to increase; need to monitor closely for pulmonary edema as she required diuresis earlier in her hospital course. Reduce rate of IVF. PAF - continue increased dose of amiodarone. Currently in sinus. Continue therapy as able; pt is limited cognitively and physically. 08/28/17 *CT completed yesterday- possible LLL pneumonia. No intra-abdominal pathology She is not symptomatic, and not febrile. Mild bump in WBC since taken off Ceftriaxone yesterday. Will hold off on restarting abx- Repeat CXR and Labs in AM and monitor for fever. *Weight has stabilized with decrease in IVF. She does not appear overloaded at this time. Will monitor closely due to severe A.S., risk of pulmonary edema. Labs do look a bit better today. She is still not taking much in by mouth. HR is controlled- continue current. Remains in SR at this time. Continue low dose Midodrine for BP support. 08/29/17 Ceftriaxone DC'd yesterday. She appears to be doing well. Afebrile. Mild leukocytosis resolved. Mental status is a bit improved today- she is more conversive. HR is regular at the time of my exam. No evidence of edema. CXR looks good. BG well controlled. Continue supportive medication. Follow up labs in AM. Still not eating or drinking much- continue gentle IVF for now. Weight is down a bit, but overall is stable. 08/30/17 Continue oral vancomycin for C. difficile. This was started on 08/29/17. Antibiotics for UTI have been discontinued. Mild hypokalemia at 3.5 - replace orally. Mg level stable at 1.9. Continue gentle IVF - appetite & oral intake still poor. 08/31/17 More awake and conversational today, but appetite and oral intake remains poor. Continue low volume half-normal saline. Continue oral vancomycin for C. difficile. This was started on 08/29/17. She had 2 bowel movements yesterday. Potassium level has been corrected to 3.9 today.
[2017-08-31] MEDS: MEMANTINE 10 MG TABLET PO SCH ×2 (10:23→21:07)
[2017-08-31] MEDS: CLOPIDOGREL 75 MG TABLET PO SCH (10:23)
[2017-08-31] MEDS: AMIODARONE 200 MG TABLET PO SCH (10:24)
[2017-08-31] MEDS: LEVOTHYROXINE 50 MCG TABLET PO SCH (10:24)
[2017-08-31] MEDS: ASPIRIN *EC* 81 MG TABLET PO SCH (10:24)
[2017-08-31] MEDS: MIDODRINE 5 MG TABLET PO SCH ×3 (10:25→17:49)
[2017-08-31] MEDS: POLYETHYL GLYCOL 3350 17gm PACKET PO SCH (10:26)
[2017-08-31] MEDS: CYANOCOBALAMIN (B-12) 1,000mcg/ml INJECTION IM SCH (10:34)
[2017-08-31] MEDS: ENOXAPARIN 40 MG/0.4 ML INJECTION SQ SCH (10:34)
[2017-08-31] MEDS: SALINE 0.65% NASAL SPRAY 44 ML BOTTLE EA NOSTRIL SCH ×4 (10:52→21:09)
[2017-08-31] MEDS: 1/2 NS 1,000 ML IV SCH (21:07)
[2017-08-31] MEDS: SALINE FLUSH 10ml SYRINGE IVF PRN (21:07)
[2017-08-31] MEDS: INSULIN ASPART 100unit/ml INJECTION SQ PRN (22:55)
[2017-09-01] MEDS: VANCOMYCIN 250mg/5ml ORAL LIQ PO SCH ×4 (03:57→21:17)
[2017-09-01] MEDS: LEVOTHYROXINE 50 MCG TABLET PO SCH (06:43)
[2017-09-01] MEDS: MIDODRINE 5 MG TABLET PO SCH ×3 (07:36→15:25)
[2017-09-01] MEDS: AMIODARONE 200 MG TABLET PO SCH (08:50)
[2017-09-01] MEDS: ASPIRIN *EC* 81 MG TABLET PO SCH (08:51)
[2017-09-01] MEDS: ENOXAPARIN 40 MG/0.4 ML INJECTION SQ SCH (08:51)
[2017-09-01] MEDS: CLOPIDOGREL 75 MG TABLET PO SCH (08:51)
[2017-09-01] MEDS: MEMANTINE 10 MG TABLET PO SCH ×2 (08:51→21:18)
[2017-09-01] MEDS: SALINE 0.65% NASAL SPRAY 44 ML BOTTLE EA NOSTRIL SCH ×4 (08:52→21:18)
[2017-09-01] MEDS: POLYETHYL GLYCOL 3350 17gm PACKET PO SCH (08:52)
--- NOTE | 2017-09-01 09:06 | Progress Note ---
- Date 09/01/17 Subjective: JOHNY was resting comfortably in bed, but easily awakened. She woke up with a smile , and graded myself and 2 aides warmly. She complains of feeling cold, but denies any difficulty breathing, chest pain or back pain. She has not had any diarrhea since yesterday. Overall, her oral intake is poor. Objective Vital signs: Temperature 96.5 F L 09/01/17 07:45 Pulse Rate 82 09/01/17 07:45 Respiratory Rate 16 09/01/17 07:45 Blood Pressure 140/75 H 09/01/17 07:45 Pulse Oximetry 95 09/01/17 07:45 Rhythm: Atrial Fibrillation with Normal Ventricular Rate Height/Weight/BMI: Height 1.65 m Weight 62.4 kg Body Mass Index 25.2 - Constitutional Present: no acute distress, well nourished, well developed - Routine HEENT Exam Head: Present: normocephalic ENT: Present: mucous membranes moist - Routine Respiratory Exam Present: decreased breath sounds (bilateral bases), CTA bilaterally - Routine Cardiovascular Exam Present: murmur, irregularly irregular - Routine Abdominal Exam Present: soft, normoactive bowel sounds, non distended, non tender - Routine Extremities Exam Present: pulses intact, normal capillary refill - Routine Skin Exam Present: intact, dry, warm - Routine Neurological Exam Present: alert (oriented to self), CN II-XII intact, normal speech - Routine Psychiatric Exam Present: normal affect, cooperative Results - Labs CBC & Chem 7: 08/31/17 04:08 08/31/17 06:31 Microbiology Results: Microbiology 08/25/17 15:20 Urine, Cath Ortiz Urine Culture - Final Rosalba albicans Assessment and Plan (1) Sepsis Current visit: Yes Status: Acute Assessment and Plan: Assessment Sepsis secondary to UTI as indicated by tachycardia, fever, altered level of consciousness and hypotension. UTI - Recurrent, frequent -- E coli on culture 08/14/17 - course of ceftriaxone completed C. difficile - diagnosed 08/29/17, PO vanco initiated Chronic urinary retention--Indwelling Ortiz - since 02/2017 - changed 08/15/17. Encephalopathy -secondary to sepsis and UTI and C. difficile Pulmonary edema Bilateral pleural effusions - 08/18/17 Acute hypoxic respiratory insufficiency secondary to pulmonary edema Hypernatremia (not POA) Hypokalemia (not POA) Generalized weakness and debility - Acute due to illness Paroxysmal atrial fibrillation Developed RVR 08/18 S/P Cardioversion on 08/19 A-fib 08/25 Severe aortic stenosis Orthostatic hypotension Diabetes mellitus, type 2 CAD H/O Chronic kidney disease, stage III. Hypothyroidism Dementia Chronic constipation Osteoarthritis Hx DVT Hx CVA- 2011 Obstipation Plan 08/31/17 Breath sounds are decreased in the bases. Her weight is slowly trending back up. She is not having significant GI losses from diarrhea. Will stop IV fluids and monitor oral intake. Continue oral vancomycin for C. difficile, day #4. Telemetry showing A. fib this morning. Her daughter Mariajose was not present this morning, and we will need additional conversations with Mariajose for discharge planning - home with hospice is one possible plan DVT Prophylaxis: SCD's Resuscitation Status: Do Not Resuscitate - Physician Narrative Narrative: Date: 09/01/17 Time: 1800 S: Pt somnolent and not cooperating too well with questions. Denies any acute complaints. Nurse reports she was oriented to person for her earlier. O: Gen: Somnolent, not oriented Cards: RRR without murmurs Resp: CTAB Ext: No rash or edema A/P: C. diff -On oral vanco Chronic urinary retention -cont. ortiz AMS -Likely hypoactive delirium, will do supportive care and orientation Hospital Course Summary Disclaimer: The visit summary below is not to be considered part of the above Progress Note. Hospital Course: 08/15/17 Admit to [facility] status under the care of Dr. Martinez. 1L NS initiated in ED. Will continue NS 100cc/hr for hydration. Cefepime 1g IV given in ED. Continue empiric coverage for urinary pathogens with Cefepime IV Q6H. UA culture from 08/14/17 revealing gram negative rods. Monitor for sensitives and new UA culture results. Blood culture obtained and results pending. Monitor closely on telemetry. Continue home medications. Monitor blood pressure closely. Monitor daily weight and urinary output closely for signs of fluid overload. Renal function stable. Upon discharge, patient's care will be returned to Dr Caballero. Patient is a DNR. 08/17/17 Sepsis secondary to UTI as indicated by tachycardia, fever, altered level of consciousness and hypotension. -IVF -Repeat lactate-normalized -Mental status improving UTI -Recurrent, frequent -Indwelling Ortiz- since 02/2017 - changed 08/15/17. -On cefepime -Bl cx NGTD -Urine cx from 08/15 NGTD, the one done on 08/14 growing E. coli sensitive to cefepime Altered level of consciousness. -This is usual for her when she gets an UTI per daughter -She does have underlying dementia -This is improved today Generalized weakness and debility. -Due to UTI -consult PT PAF -Not on OAC -Metoprolol 25mg q6hr prn started by nighttime MD -With her hypotension, she may not tolerate this. -Will try low dose digoxin and monitor History of CVA - 2011. -On aspirin and Plavix Dementia. -On Namenda XR Hypothyroid -continue levothyroxine -Last free T4 1.84 in November 2016 Severe aortic stenosis. -SKYE 0.7cm2 per HC 08/2016 Orthostatic hypotension -Continue midodrine History of DVT to left arm. -S/P Mechanical clot removal Diabetes mellitus, type 2. -Continue Janumet -Last A1C I can find was in november 2016 and was 5.3% Constipation. -On Colace daily H/O Chronic kidney disease, stage III. -Creatinine normal here and I do not see any elevations in recent history CAD -H/O stents 2016 -HC 08/2016 showing LVEF 65%, SKYE 0.7cm2, 70-80% LAD, 30% LCx, 70-75% RCA -CHRIS to RCA 09/2016 -CHRIS to LAD 01/2017 Hypothyroidism. -Continue levothyroxine Osteoarthritis. 08/18/17 Oxygen needs continue to increase. Chest X-ray this morning does revel small bilateral pleural effusions and pulmonary edema. Lasix 40 mg IV x1 given this morning, will give repeat 40mg IV Lasix this evening. IVF stopped. Continue to monitor urinary output via Ortiz cath (chronic- changed 08/15) Trend daily weights. she is up 5 Kg from admission Change cefepime for ceftriaxone for treatment of Ecoli UTI. Continue to monitor Accu-Cheks Recheck CBC in am due to UTI/Resolving sepsis. Will recheck BMP in am secondary to Lasix use. Lovenox subcutaneous daily for DVT prophylaxis 08/19/17 Transferred to CCU overnight secondary to Afib with RVR, diltiazem drip started. HR showing improvement. Will consult with Dr Vanessa for treatment recommendations for afib. Digoxin level slightly subtherapeutic at 0.7 - could be increased. Will continue with Rocephin for urinary coverage. Lasix 20mg IV x1 to help mobilize pulmonary edema. Will recheck CXR in am. Weight trending down. Output increased with Lasix yesterday. Continue with supplemental O2, weaning as able. Encourage oral intake. 08/20/17 Will start KCL bolus at 50cc/hr as potassium with significant decrease due to Lasix. Weight with decreased. CXR without change, but O2 sats improved with less O2 flow (3L). Continue ceftriaxone for urinary coverage. Encouraging that oral drive increasing. Likely transfer to medical floor later today. Will have PT/OT restart work tomorrow. 08/21/17 CXR showing gradual improvement. O2 needs decreasing (down to 2L, and weaning). Creatinine stable. Potassium improved to 3.7. Will decrease IV Lasix to 40mg twice a day - worry for overdiuresis with patients decreased oral drive. Diamox 500mg x1 as CO2 increasing. Encourage oral intake. Encourage activities with therapy. Will continue Rocephin for urinary coverage. 08/22/17 Continued improvement in CXR and O2 need. Patient still somnolent. Nursing working on increasing bowel motivation. Weight with decrease and creatinine increased to 1.3 -- will stop IV Lasix. Continue Rocephin. Encourage activities and therapy. 08/23/17 Patient still somnolent. Leukocytosis increasing 9.8-->11.9-->13.1 despite continuation of ceftriaxone for UTI (+ sensitivity for ceftriaxone on C&S). Check CXR. Remains in NSR at this time. Continues amiodarone . Cardiology following. Patient with minimal intake. Is on fluid restriction d/t recent fluid overload , but pt isn't taking much po. May consider IVF's if she isn't taking more p.o. 08/24/17 Patient remains somnolent but oral intake is improved today and she is acknowledging examiner also improved from yesterday. Will attempt to get patient up in chair today; PT/OT can attempt ambulation tomorrow. Leukocytosis improved today-may have aspirated with emesis 2 days ago but no indication of aspiration pneumonitis by x-ray. Day 7 ceftriaxone for UTI. Sodium up to 147, BUN up further today. Conjunction with poor oral intake and laboratory signs of dehydration will hydrate with 1 L 1/2 NS. Remains in sinus rhythm by my review of telemetry and exam. Persistent encephalopathy-increase activity as tolerates. Avoid sedating medications. Continue vitamin B 12-will resume oral administration at discharge. Blood sugars stable; blood pressure borderline low-reassess after fluids. 08/25/17 Somnolent, confused. Poor intake with supper last night. Persistent hypernatremia with mild improvement. BUN also improved. Tele reviewed - shows A-fib with normal rate. She went into a-fib around 0500. Hypotension with BP 87/59, UO overall poor over the last few days - give NS 250 mL bolus. CXR from 08/23 reviewed - pulm edema noted; will need to monitor resp status/sats closely. Rocephin day #8 for E. coli UTI. Repeat UC from 08/15 was neg. 08/26/17 Continues to be somnolent, confused. Poor intake. Persistent hypernatremia. Daughter ok with placing midline and starting IVF's. Has remained in NSR since 8am yesterday. UA, performed yesterday d/t somnolence and questionable abdominal pain, + for leuks and bacteria. Urine culture pending. Rocephin day #9 for E. coli UTI. 08/27/17 Repeat UC from 08/25 was positive for rosalba. Will DC Rocephin, s/p 9 days of treatment. Change Ortiz. Na remains elevated at 146 despite starting 1/2NS yesterday. BUN decreased from 43 to 40. Weight is starting to increase; need to monitor closely for pulmonary edema as she required diuresis earlier in her hospital course. Reduce rate of IVF. PAF - continue increased dose of amiodarone. Currently in sinus. Continue therapy as able; pt is limited cognitively and physically. 08/28/17 *CT completed yesterday- possible LLL pneumonia. No intra-abdominal pathology She is not symptomatic, and not febrile. Mild bump in WBC since taken off Ceftriaxone yesterday. Will hold off on restarting abx- Repeat CXR and Labs in AM and monitor for fever. *Weight has stabilized with decrease in IVF. She does not appear overloaded at this time. Will monitor closely due to severe A.S., risk of pulmonary edema. Labs do look a bit better today. She is still not taking much in by mouth. HR is controlled- continue current. Remains in SR at this time. Continue low dose Midodrine for BP support. 08/29/17 Ceftriaxone DC'd yesterday. She appears to be doing well. Afebrile. Mild leukocytosis resolved. Mental status is a bit improved today- she is more conversive. HR is regular at the time of my exam. No evidence of edema. CXR looks good. BG well controlled. Continue supportive medication. Follow up labs in AM. Still not eating or drinking much- continue gentle IVF for now. Weight is down a bit, but overall is stable. 08/30/17 Continue oral vancomycin for C. difficile. This was started on 08/29/17. Antibiotics for UTI have been discontinued. Mild hypokalemia at 3.5 - replace orally. Mg level stable at 1.9. Continue gentle IVF - appetite & oral intake still poor. 08/31/17 More awake and conversational today, but appetite and oral intake remains poor. Continue low volume half-normal saline. Continue oral vancomycin for C. difficile. This was started on 08/29/17. She had 2 bowel movements yesterday. Potassium level has been corrected to 3.9 today. 08/31/17 Breath sounds are decreased in the bases. Her weight is slowly trending back up. She is not having significant GI losses from diarrhea. Will stop IV fluids and monitor oral intake. Continue oral vancomycin for C. difficile, day #4.
[2017-09-01] MEDS: 1/2 NS 1,000 ML IV SCH ×2 (09:28→09:29)
[2017-09-01] MEDS: INSULIN ASPART 100unit/ml INJECTION SQ PRN (10:44)
[2017-09-01] MEDS: CEFTRIAXONE 1 G INJECTION IM SCH (10:58)
--- NOTE | 2017-09-01 13:27 | Cardiology Progress Note ---
<Sandra Guevara - Last Filed: 09/01/17 18:15> Subjective Principal diagnosis: AFib RVR Interval history: Margarita is seen in follow up for AFib with RVR. She in sleeping in her bed with blankets piled on her. She appears comfortable and is in no distress. Exam Vital signs: Temperature 96.5 F L 09/01/17 07:45 Pulse Rate 97 09/01/17 08:00 Respiratory Rate 16 09/01/17 07:45 Blood Pressure 140/75 H 09/01/17 07:45 Pulse Oximetry 95 09/01/17 07:45 Inpatient Medications: Generic Name Dose Route Start Last Admin Trade Name Freq PRN Reason Stop Dose Admin Acetaminophen 650 mg 08/15/17 19:04 08/22/17 08:28 Tylenol PO 650 mg Q5H PRN Administration Discomfort Amiodarone HCl 200 mg 08/26/17 09:00 09/01/17 08:50 Pacerone PO 200 mg DAILY [facility] Administration Aspirin 81 mg 08/16/17 09:00 09/01/17 08:51 Ecotrin PO 81 mg DAILY [facility] Administration Bisacodyl 10 mg 08/22/17 17:05 Dulcolax RECTALLY DAILY PRN Constipation Clopidogrel Bisulfate 75 mg 08/17/17 09:00 09/01/17 08:51 Plavix PO 75 mg DAILY [facility] Administration Cyanocobalamin 1,000 mcg 08/17/17 09:00 08/31/17 10:34 Vit. B-12 IM 1,000 mcg Abarca [facility] Administration Dextrose 10 ml 08/24/17 21:50 D50%W IVP PRN PRN Hypoglycemia Docusate Sodium 100 mg 08/27/17 13:57 Colace PO DAILY PRN Enoxaparin Sodium 40 mg 08/17/17 04:00 09/01/17 08:51 Lovenox SQ 40 mg DAILY [facility] Administration Glucose 37.5 gm 08/24/17 21:50 Glutose 15 PO PRN PRN Hypoglycemia Insulin Aspart 1 - 5 unit 08/24/17 21:50 09/01/17 10:44 Novolog SQ 1 unit SS PRN Administration Hyperglycemia Protocol Levothyroxine Sodium 50 mcg 08/18/17 06:30 09/01/17 06:43 Synthroid PO 50 mcg ACB [facility] Administration Memantine 10 mg 08/16/17 09:00 09/01/17 08:51 Namenda PO 10 mg BID [facility] Administration Midodrine 5 mg 08/18/17 11:00 09/01/17 10:44 Proamatine PO 5 mg 0700,1100,1500 [facility] Administration Pom Janumet 50-500 1 tab 08/26/17 09:45 08/26/17 14:55 PO 1 tab DAILY [facility] Administration Ondansetron HCl 4 mg 08/15/17 19:04 08/23/17 09:42 Zofran IVP 4 mg Q6H PRN Administration Nausea &/or vomiting Polyethylene Glycol 17 gm 08/21/17 09:00 09/01/17 08:52 Miralax PO Not Given DAILY [facility] Senna/Docusate Sodium 1 tab 08/15/17 19:04 08/26/17 09:59 Senna Plus Tablet PO 1 tab BID PRN Administration Constipation Sodium Chloride 10 - 80 ml 08/15/17 15:23 08/31/17 21:07 Iv Flush IVF 10 ml PRN PRN Administration [place]ushing Sodium Chloride 500 ml 08/15/17 15:35 08/21/17 02:54 Normal Saline IV 500 ml PRN PRN Administration Sodium Chloride 10 ml 08/15/17 19:04 08/24/17 15:09 Iv Flush IV 10 ml PRN PRN Administration [place]ushing Sodium Chloride 2 spray 08/18/17 18:44 09/01/17 12:12 Deep Sea Nasal Moisturizing [place] EA NOSTRIL Not Given QID [facility] Sodium Phosphate 1 enema 08/22/17 10:00 Fleet Enema NV PRN PRN Vancomycin HCl 125 mg 08/29/17 21:00 09/01/17 08:51 Vancomycin Oral Liq PO 09/08/17 20:59 125 mg Q6HR [facility] Administration Discontinued Medications Generic Name Dose Route Start Last Admin Trade Name Freq PRN Reason Stop Dose Admin Acetaminophen 650 mg 08/15/17 19:04 Tylenol Supp NV Q5H PRN Pain Acetazolamide 500 mg 08/21/17 12:26 08/21/17 14:27 Diamox PO 08/21/17 12:27 500 mg O ONE Administration Amiodarone HCl 100 mg 08/19/17 15:30 08/25/17 08:48 Pacerone PO Not Given DAILY [facility] Amiodarone HCl 150 mg 08/21/17 02:24 08/21/17 02:56 Amiodarone IV 08/21/17 02:25 150 mg O ONE Administration Ceftriaxone Sodium 1 g 08/25/17 14:30 09/01/17 10:58 Rocephin 1 Gm Vial IM Not Given Q24H [facility] Clopidogrel Bisulfate 75 mg 08/16/17 09:00 08/16/17 08:31 Plavix PO 75 mg DAILY [facility] Administration Cyanocobalamin 5,000 mcg 08/16/17 09:00 08/16/17 09:26 Vit. B-12 PO 5,000 mcg DAILY [facility] Administration Cyanocobalamin 0 mcg 08/17/17 09:00 Vit. B-12 PO DAILY [facility] Digoxin 125 mcg 08/17/17 12:00 08/19/17 08:57 Lanoxin PO 125 mcg DAILY [facility] Administration Digoxin 500 mcg 08/21/17 02:24 08/21/17 02:54 Lanoxin IVP 08/21/17 02:25 500 mcg O ONE Administration Diltiazem HCl 10 mg 08/18/17 21:55 08/18/17 22:19 Cardizem 25 Mg Inj IVP 08/18/17 21:56 10 mg O ONE Administration Docusate Sodium 100 mg 08/16/17 09:00 08/27/17 10:26 Colace PO 100 mg DAILY [facility] Administration Furosemide 40 mg 08/18/17 12:16 08/18/17 12:26 Lasix 40 Mg/4 Ml IVP 08/18/17 12:17 40 mg Q6HR ONE Administration Furosemide 40 mg 08/18/17 20:00 08/18/17 20:44 Lasix 40 Mg/4 Ml IVP 08/18/17 20:01 40 mg ONE TIME ONE Administration Furosemide 20 mg 08/19/17 10:19 08/19/17 10:31 Lasix 20 Mg/2 Ml IVP 08/19/17 10:20 20 mg ONCE ONE Administration Furosemide 40 mg 08/19/17 17:00 08/20/17 11:15 Lasix 40 Mg/4 Ml IVP 40 mg Q8HR [facility] Administration Furosemide 40 mg 08/20/17 22:00 08/22/17 07:02 Lasix 40 Mg/4 Ml IVP 40 mg 0600,1400,2200 [facility] Administration Cefepime HCl 1 gm/ Sodium 100 mls @ 200 mls/hr 08/15/17 15:23 08/15/17 16:20 Chloride IV 08/15/17 15:52 Infused O ONE Infusion Sodium Chloride 1,000 mls @ 1,000 mls/hr 08/15/17 15:23 08/15/17 17:07 Normal Saline IV 08/15/17 16:22 Infused .Q1H ONE Infusion Sodium Chloride 1,000 mls @ 100 mls/hr 08/15/17 19:15 08/18/17 11:37 Normal Saline IV Infused .Q10H [facility] Infusion Cefepime HCl 1 gm/ Sodium 100 mls @ 200 mls/hr 08/15/17 21:30 08/18/17 10:03 Chloride IV Infused Q6H [facility] Infusion Sodium Chloride 500 mls @ 500 mls/hr 08/15/17 22:59 08/15/17 23:20 Normal Saline IV 08/15/17 23:58 Not Given .Q1H ONE Cefepime HCl 1 gm/ Sodium 100 mls @ 200 mls/hr 08/18/17 16:00 Chloride IV Q6H [facility] Ceftriaxone Sodium 1 g/ Sodium 100 mls @ 200 mls/hr 08/18/17 14:45 08/24/17 15:42 Chloride IV Infused Q24H [facility] Infusion Diltiazem HCl 125 mg/ Sodium 125 mls @ 5 mls/hr 08/18/17 23:00 08/19/17 13:52 Chloride IV 0 mls/hr .Q24H [facility] Infusion Protocol Amiodarone HCl 450 mg/ Sodium 250 mls @ 33.33 mls/hr 08/19/17 12:00 08/19/17 18:00 Chloride IV 08/19/17 18:00 0.99 mg/min .Q7H31M [facility] 33.33 mls/hr 1 MG/MIN Infusion Amiodarone HCl 900 mg/ Sodium 500 mls @ 16.66 mls/hr 08/19/17 18:00 Chloride IV .Q24H [facility] 0.5 MG/MIN Amiodarone HCl 150 mg/ Sodium 103 mls @ 618 mls/hr 08/19/17 11:57 08/19/17 12 :52 Chloride IV 08/19/17 12:06 Infused O ONE Infusion Potassium Chloride 10 meq in 100 mls @ 100 mls/hr 08/20/17 05:37 08/20/17 08: 07 Potassium Chloride Premix IV 08/20/17 06:36 Infused O ONE Infusion Lidocaine HCl 10 mg/ Potassium 100 mls @ 50 mls/hr 08/20/17 10:30 08/20/17 19 :55 Chloride 10 meq/ Sodium IV 08/20/17 18:57 Infused Chloride .Q2H [facility] Infusion Sodium Chloride 1,000 mls @ 75 mls/hr 08/24/17 15:45 08/25/17 05:40 1/2 Normal Saline IV 08/25/17 05:04 Infused .[id number] [facility] Infusion Sodium Chloride 1,000 mls @ 250 mls/hr 08/25/17 08:45 08/25/17 09:40 Normal Saline IV 08/25/17 09:44 Not Given .Q4H [facility] Sodium Chloride 1,000 mls @ 50 mls/hr 08/26/17 12:45 09/01/17 09:29 1/2 Normal Saline IV Not Given .Q20H [facility] Ceftriaxone Sodium 1 g/ Sodium 100 mls @ 200 mls/hr 08/26/17 16:15 08/28/17 17:12 Chloride IV Not Given Q24H [facility] Levothyroxine Sodium 50 mcg 08/16/17 06:30 08/17/17 05:58 Synthroid PO 50 mcg ACB [facility] Administration Lidocaine HCl 2.1 mg 08/25/17 14:30 Xylocaine-Mpf 1% Vial IJ Q24H [facility] Lidocaine HCl 21 mg 08/25/17 14:30 08/29/17 15:47 Xylocaine-Mpf 1% Vial IJ Not Given Q24H [facility] Metoprolol Tartrate 25 mg 08/17/17 03:29 08/17/17 03:59 Lopressor PO 25 mg Q6H PRN Administration Midodrine 5 mg 08/15/17 21:00 08/17/17 08:59 Proamatine PO 5 mg TID [facility] Administration Midodrine 5 mg 08/17/17 09:00 08/18/17 09:28 Proamatine PO 08/18/17 10:00 5 mg TID [facility] Administration Non-Formulary Medication 5,000 mcg 08/16/17 09:00 Cyanocobalamin (Vitamin B-12) [B-12] SL DAILY [facility] Non-Formulary Medication 28 mg 08/16/17 09:00 Memantine Hcl [Namenda Xr] PO DAILY [facility] Non-Formulary Medication 1 tab 08/15/17 21:00 Sitagliptin Phos/Metformin Hcl [Janumet 50-500 Mg Tablet] PO BID [facility] Pharmacy Consult 1 each 08/21/17 22:40 Pharmacy Consult - Fall Risk [facility] 08/21/17 22:41 ONE TIME ONE Potassium Chloride 40 meq 08/19/17 15:36 K-Dur 20 Meq Tablet PO 08/19/17 15:37 O ONE Potassium Chloride 40 meq 08/20/17 05:37 08/20/17 05:44 K-Dur 20 Meq Tablet PO 08/20/17 05:38 40 meq O ONE Administration Potassium Chloride 20 meq 08/20/17 17:30 08/22/17 12:14 K-Dur 20 Meq Tablet PO 20 meq TIDWM [facility] Administration Potassium Chloride 20 meq 08/30/17 10:35 08/30/17 11:20 K-Dur 20 Meq Tablet PO 08/30/17 10:36 20 meq O ONE Administration - Constitutional no acute distress, well nourished, cooperative - Routine HEENT Exam Head: Present: normocephalic ENT: Present: mucous membranes moist - Routine Neck Exam Absent: JVD, carotid bruit - Routine Chest/Breast/Axilla Exam Chest wall: Absent: tenderness - Routine Respiratory Exam Present: decreased breath sounds, diminished air movement (bases) - Routine Cardiovascular Exam Present: murmur (II/), irregular rhythm - Routine Abdominal Exam Present: soft, non tender - Routine Extremities Exam Present: no edema - Routine Skin Exam Present: intact, dry, warm - Routine Neurological Exam Present: alert - Routine Psychiatric Exam Present: normal affect - Urinary Catheter Management Urethral Cath placed during this visit: yes, but has since been removed by the nurse Insertion date: 08/27/17 Insertion time: 15:20 Removal date: 08/21/17 Removal time: 12:00 Results 08/31/17 04:08 08/31/17 06:31 Intake and Output 08/31/17 09/01/17 09/01/17 22:59 06:59 14:59 Intake Total 1000 / 1000 100 / 100 677.5 / 677.5 Output Total 500 / 500 Balance 500 / 500 100 / 100 677.5 / 677.5 Intake: IV 1000 / 1000 617.5 / 617.5 1/2 Ns 1,000 ml @ 50 mls/hr IV 1000 / 1000 617.5 / 617.5 .Q20H [facility] Rx#:[id number] Oral 100 / 100 60 / 60 Output: Urine Amount (Catheter) 500 / 500 Other: Urine Appearance Clear Urine Color Yellow Weight 137 lb 9.095 oz Patient Weight 09/02/17 06:59 Weight 137 lb 9.095 oz Assessment and Plan - Assessment and Plan (1) Atrial fibrillation with RVR Status: Acute (2) Atherosclerotic heart disease of [place] coronary artery without angina pectoris Status: Chronic (3) Nonrheumatic aortic valve stenosis Status: Chronic (4) Syncope and collapse Status: Chronic (5) Hypotension Status: Chronic (6) Type 2 diabetes mellitus without complications Status: Chronic (7) Diastolic CHF Status: Acute - Assessment and Plan 08/19/17 A Fib with RVR: History of PAF, asymptomatic - Takes Amiodarone 100mg daily, not given this admission - Amiodarone bolus and drip - Npo for possible DCCV - Converted to SR - Resume home Amiodarone 100mg PO daily and stop IV - EKG now - Stop Digoxin. - Check TSh and Mag DCHF: Diurese with Lasix 40mg IV q8h - CXR: Diffuse airspace opacities throughout both lungs. Probable small bilateral pleural effusions. Close interval follow-up is recommended. - K+ 3.3, replace CAD: Stable. continue current therapy, routine monitoring. - Continue Aspirin and Plavix Hypotension: Continue Midodrine Thank you for allowing us to participate in the care of this patient. 08/20/17 AFib:Continue home dose Amiodarone 100mg daily - Not a candidate for prison anticoagulation due to age and fall risk DCHF: Diuresing well. - CXR: No significant change in diffuse bilateral airspace disease which could represent edema, pneumonia, massive aspiration or pulmonary hemorrhage. - Continue Lasix 40mg IV q8h - K+ 2.9, Replace K+ 20meq po with meals TID - TSH, Mag WNL - Monitor renal and electrolytes 08/21/17 Went back into AFib overnight. - Given 150mg IV Amiodarone bolus and Digoxin 500mcg - Converted back this afternoon to SR - Continue Amiodarone at 100mg daily CXR: Overall slight improvement in appearance of the chest may be due to resolving edema. - Continue diuresis - Monitor renal and electrolytes 08/22/17 BUN/SCr 39/ 1.3, NA 145 today, K+ 4.2 - Diuretic stopped by attending - Stop K+ replacement CXR: Impression: Continued improvement in pulmonary edema. 08/25/17 Accurate I & O please, need to watch fluid balance closely with patient's and history of hypotension. - Monitor renal and electrolytes - CXR 08/23/17: Stable to slightly improved appearance of the lungs. 08/26/17 Increased Amiodarone to 200mg daily for better control of PAF 08/27/17 Telemetry remains SR Closely monitor Fluid balance due to . - weight increasing - IVF/ rate per hospitalist 08/28/17 NA 140 today, BUN improving, weight up 3# - Accurate daily weights please 08/29/17 - Weight stable - Tele remains SR mostly Stable from cardiology standpoint, okay to discharge when okay with hospitalist Hospital Course Summary Disclaimer: The visit summary below is not to be considered part of the above Progress Note. Hospital Course: [facility]. Martinez. 1L NS initiated in ED. Will continue NS 100cc/hr for hydration. Cefepime 1g IV given in ED. Continue empiric coverage for urinary pathogens with Cefepime IV Q6H. UA culture from 08/14/17 revealing gram negative rods. Monitor for sensitives and new UA culture results. Blood culture obtained and results pending. Monitor closely on telemetry. Continue home medications. Monitor blood pressure closely. Monitor daily weight and urinary output closely for signs of fluid overload. Renal function stable. Upon discharge, patient's care will be returned to Dr Caballero. Patient is a DNR. 08/17/17 Sepsis secondary to UTI as indicated by tachycardia, fever, altered level of consciousness and hypotension. -IVF -Repeat lactate-normalized -Mental status improving UTI -Recurrent, frequent -Indwelling Ramirez- since 02/2017 - changed 08/15/17. -On cefepime -Bl cx NGTD -Urine cx from 4/27 NGTD, the one done on 08/14 growing E. coli sensitive to cefepime Altered level of consciousness. -This is usual for her when she gets an UTI per daughter -She does have underlying dementia -This is improved today Generalized weakness and debility. -Due to UTI -consult PT PAF -Not on OAC -Metoprolol 25mg q6hr prn started by nighttime MD -With her hypotension, she may not tolerate this. -Will try low dose digoxin and monitor History of CVA - 2011. -On aspirin and Plavix Dementia. -On Namenda XR Hypothyroid -continue levothyroxine -Last free T4 1.84 in November 2016 Severe aortic stenosis. -SKYE 0.7cm2 per HC 08/2016 Orthostatic hypotension -Continue midodrine History of DVT to left arm. -S/P Mechanical clot removal Diabetes mellitus, type 2. -Continue Janumet -Last A1C I can find was in november 2016 and was 5.3% Constipation. -On Colace daily H/O Chronic kidney disease, stage III. -Creatinine normal here and I do not see any elevations in recent history CAD -H/O stents 2016 -HC 08/2016 showing LVEF 65%, SKYE 0.7cm2, 70-80% LAD, 30% LCx, 70-75% RCA -CHRIS to RCA 09/2016 -CHRIS to LAD 01/2017 Hypothyroidism. -Continue levothyroxine Osteoarthritis. 08/18/17 Oxygen needs continue to increase. Chest X-ray this morning does revel small bilateral pleural effusions and pulmonary edema. Lasix 40 mg IV x1 given this morning, will give repeat 40mg IV Lasix this evening. IVF stopped. Continue to monitor urinary output via Ramirez cath (chronic- changed 08/15) Trend daily weights. she is up 5 Kg from admission Change cefepime for ceftriaxone for treatment of Ecoli UTI. Continue to monitor Accu-Cheks Recheck CBC in am due to UTI/Resolving sepsis. Will recheck BMP in am secondary to Lasix use. Lovenox subcutaneous daily for DVT prophylaxis 08/19/17 Transferred to CCU overnight secondary to Afib with RVR, diltiazem drip started. HR showing improvement. Will consult with Dr Vanessa for treatment recommendations for afib. Digoxin level slightly subtherapeutic at 0.7 - could be increased. Will continue with Rocephin for urinary coverage. Lasix 20mg IV x1 to help mobilize pulmonary edema. Will recheck CXR in am. Weight trending down. Output increased with Lasix yesterday. Continue with supplemental O2, weaning as able. Encourage oral intake. 08/20/17 Will start KCL bolus at 50cc/hr as potassium with significant decrease due to Lasix. Weight with decreased. CXR without change, but O2 sats improved with less O2 flow (3L). Continue ceftriaxone for urinary coverage. Encouraging that oral drive increasing. Likely transfer to medical floor later today. Will have PT/OT restart work tomorrow. 08/21/17 CXR showing gradual improvement. O2 needs decreasing (down to 2L, and weaning). Creatinine stable. Potassium improved to 3.7. Will decrease IV Lasix to 40mg twice a day - worry for overdiuresis with patients decreased oral drive. Diamox 500mg x1 as CO2 increasing. Encourage oral intake. Encourage activities with therapy. Will continue Rocephin for urinary coverage. 08/22/17 Continued improvement in CXR and O2 need. Patient still somnolent. Nursing working on increasing bowel motivation. Weight with decrease and creatinine increased to 1.3 -- will stop IV Lasix. Continue Rocephin. Encourage activities and therapy. 08/23/17 Patient still somnolent. Leukocytosis increasing 9.8-->11.9-->13.1 despite continuation of ceftriaxone for UTI (+ sensitivity for ceftriaxone on C&S). Check CXR. Remains in NSR at this time. Continues amiodarone . Cardiology following. Patient with minimal intake. Is on fluid restriction d/t recent fluid overload , but pt isn't taking much po. May consider IVF's if she isn't taking more p.o. 08/24/17 Patient remains somnolent but oral intake is improved today and she is acknowledging examiner also improved from yesterday. Will attempt to get patient up in chair today; PT/OT can attempt ambulation tomorrow. Leukocytosis improved today-may have aspirated with emesis 2 days ago but no indication of aspiration pneumonitis by x-ray. Day 7 ceftriaxone for UTI. Sodium up to 147, BUN up further today. Conjunction with poor oral intake and laboratory signs of dehydration will hydrate with 1 L 1/2 NS. Remains in sinus rhythm by my review of telemetry and exam. Persistent encephalopathy-increase activity as tolerates. Avoid sedating medications. Continue vitamin B 12-will resume oral administration at discharge. Blood sugars stable; blood pressure borderline low-reassess after fluids. 08/25/17 Somnolent, confused. Poor intake with supper last night. Persistent hypernatremia with mild improvement. BUN also improved. Tele reviewed - shows A-fib with normal rate. She went into a-fib around 0500. Hypotension with BP 87/59, UO overall poor over the last few days - give NS 250 mL bolus. CXR from 08/23 reviewed - pulm edema noted; will need to monitor resp status/sats closely. Rocephin day #8 for E. coli UTI. Repeat UC from 08/15 was neg. 08/26/17 Continues to be somnolent, confused. Poor intake. Persistent hypernatremia. Daughter ok with placing midline and starting IVF's. Has remained in NSR since 8am yesterday. UA, performed yesterday d/t somnolence and questionable abdominal pain, + for leuks and bacteria. Urine culture pending. Rocephin day #9 for E. coli UTI. 08/27/17 Repeat UC from 08/25 was positive for rosalba. Will DC Rocephin, s/p 9 days of treatment. Change Ramirez. Na remains elevated at 146 despite starting 1/2NS yesterday. BUN decreased from 43 to 40. Weight is starting to increase; need to monitor closely for pulmonary edema as she required diuresis earlier in her hospital course. Reduce rate of IVF. PAF - continue increased dose of amiodarone. Currently in sinus. Continue therapy as able; pt is limited cognitively and physically. 08/28/17 *CT completed yesterday- possible LLL pneumonia. No intra-abdominal pathology She is not symptomatic, and not febrile. Mild bump in WBC since taken off Ceftriaxone yesterday. Will hold off on restarting abx- Repeat CXR and Labs in AM and monitor for fever. *Weight has stabilized with decrease in IVF. She does not appear overloaded at this time. Will monitor closely due to severe A.S., risk of pulmonary edema. Labs do look a bit better today. She is still not taking much in by mouth. HR is controlled- continue current. Remains in SR at this time. Continue low dose Midodrine for BP support. 08/29/17 Ceftriaxone DC'd yesterday. She appears to be doing well. Afebrile. Mild leukocytosis resolved. Mental status is a bit improved today- she is more conversive. HR is regular at the time of my exam. No evidence of edema. CXR looks good. BG well controlled. Continue supportive medication. Follow up labs in AM. Still not eating or drinking much- continue gentle IVF for now. Weight is down a bit, but overall is stable. 08/30/17 Continue oral vancomycin for C. difficile. This was started on 08/29/17. Antibiotics for UTI have been discontinued. Mild hypokalemia at 3.5 - replace orally. Mg level stable at 1.9. Continue gentle IVF - appetite & oral intake still poor. 08/31/17 More awake and conversational today, but appetite and oral intake remains poor. Continue low volume half-normal saline. Continue oral vancomycin for C. difficile. This was started on 08/29/17. She had 2 bowel movements yesterday. Potassium level has been corrected to 3.9 today. 08/31/17 Breath sounds are decreased in the bases. Her weight is slowly trending back up. She is not having significant GI losses from diarrhea. Will stop IV fluids and monitor oral intake. Continue oral vancomycin for C. difficile, day #4. <Lawrence Vanessa - Last Filed: 09/08/17 14:30> Exam Vital signs: Temperature 95.2 F L 09/04/17 12:00 Pulse Rate 61 09/04/17 12:00 Respiratory Rate 16 09/04/17 12:00 Blood Pressure 96/56 09/04/17 12:00 Pulse Oximetry 98 09/04/17 08:21 Inpatient Medications: Discontinued Medications Generic Name Dose Route Start Last Admin Trade Name Freq PRN Reason Stop Dose Admin Acetaminophen 650 mg 08/15/17 19:04 09/03/17 13:03 Tylenol PO 650 mg Q5H PRN Administration Discomfort Acetaminophen 650 mg 08/15/17 19:04 Tylenol Supp NV Q5H PRN Pain Acetazolamide 500 mg 08/21/17 12:26 08/21/17 14:27 Diamox PO 08/21/17 12:27 500 mg O ONE Administration Amiodarone HCl 100 mg 08/19/17 15:30 08/25/17 08:48 Pacerone PO Not Given DAILY [facility] Amiodarone HCl 150 mg 08/21/17 02:24 08/21/17 02:56 Amiodarone IV 08/21/17 02:25 150 mg O ONE Administration Amiodarone HCl 200 mg 08/26/17 09:00 09/04/17 08:31 Pacerone PO 200 mg DAILY [facility] Administration Aspirin 81 mg 08/16/17 09:00 09/04/17 08:31 Ecotrin PO 81 mg DAILY [facility] Administration Bisacodyl 10 mg 08/22/17 17:05 Dulcolax RECTALLY DAILY PRN Constipation Ceftriaxone Sodium 1 g 08/25/17 14:30 09/01/17 10:58 Rocephin 1 Gm Vial IM Not Given Q24H [facility] Clopidogrel Bisulfate 75 mg 08/16/17 09:00 08/16/17 08:31 Plavix PO 75 mg DAILY [facility] Administration Clopidogrel Bisulfate 75 mg 08/17/17 09:00 09/04/17 08:32 Plavix PO 75 mg DAILY [facility] Administration Cyanocobalamin 5,000 mcg 08/16/17 09:00 08/16/17 09:26 Vit. B-12 PO 5,000 mcg DAILY [facility] Administration Cyanocobalamin 0 mcg 08/17/17 09:00 Vit. B-12 PO DAILY [facility] Cyanocobalamin 1,000 mcg 08/17/17 09:00 08/31/17 10:34 Vit. B-12 IM 1,000 mcg Abarca [facility] Administration Dextrose 10 ml 08/24/17 21:50 D50%W IVP PRN PRN Hypoglycemia Digoxin 125 mcg 08/17/17 12:00 08/19/17 08:57 Lanoxin PO 125 mcg DAILY [facility] Administration Digoxin 500 mcg 08/21/17 02:24 08/21/17 02:54 Lanoxin IVP 08/21/17 02:25 500 mcg O ONE Administration Diltiazem HCl 10 mg 08/18/17 21:55 08/18/17 22:19 Cardizem 25 Mg Inj IVP 08/18/17 21:56 10 mg O ONE Administration Docusate Sodium 100 mg 08/16/17 09:00 08/27/17 10:26 Colace PO 100 mg DAILY [facility] Administration Docusate Sodium 100 mg 08/27/17 13:57 Colace PO DAILY PRN Enoxaparin Sodium 40 mg 08/17/17 04:00 09/04/17 08:31 Lovenox SQ 40 mg DAILY [facility] Administration Furosemide 40 mg 08/18/17 12:16 08/18/17 12:26 Lasix 40 Mg/4 Ml IVP 08/18/17 12:17 40 mg Q6HR ONE Administration Furosemide 40 mg 08/18/17 20:00 08/18/17 20:44 Lasix 40 Mg/4 Ml IVP 08/18/17 20:01 40 mg ONE TIME ONE Administration Furosemide 20 mg 08/19/17 10:19 08/19/17 10:31 Lasix 20 Mg/2 Ml IVP 08/19/17 10:20 20 mg ONCE ONE Administration Furosemide 40 mg 08/19/17 17:00 08/20/17 11:15 Lasix 40 Mg/4 Ml IVP 40 mg Q8HR [facility] Administration Furosemide 40 mg 08/20/17 22:00 08/22/17 07:02 Lasix 40 Mg/4 Ml IVP 40 mg 0600,1400,2200 PAOLA Administration Glucose 37.5 gm 08/24/17 21:50 Glutose 15 PO PRN PRN Hypoglycemia Cefepime HCl 1 gm/ Sodium 100 mls @ 200 mls/hr 08/15/17 15:23 08/15/17 16:20 Chloride IV 08/15/17 15:52 Infused O ONE Infusion Sodium Chloride 1,000 mls @ 1,000 mls/hr 08/15/17 15:23 08/15/17 17:07 Normal Saline IV 08/15/17 16:22 Infused .Q1H ONE Infusion Sodium Chloride 1,000 mls @ 100 mls/hr 08/15/17 19:15 08/18/17 11:37 Normal Saline IV Infused .Q10H [facility]A Infusion Cefepime HCl 1 gm/ Sodium 100 mls @ 200 mls/hr 08/15/17 21:30 08/18/17 10:03 Chloride IV Infused Q6H [facility] Infusion Sodium Chloride 500 mls @ 500 mls/hr 08/15/17 22:59 08/15/17 23:20 Normal Saline IV 08/15/17 23:58 Not Given .Q1H ONE Cefepime HCl 1 gm/ Sodium 100 mls @ 200 mls/hr 08/18/17 16:00 Chloride IV Q6H [facility] Ceftriaxone Sodium 1 g/ Sodium 100 mls @ 200 mls/hr 08/18/17 14:45 08/24/17 15:42 Chloride IV Infused Q24H [facility] Infusion Diltiazem HCl 125 mg/ Sodium 125 mls @ 5 mls/hr 08/18/17 23:00 08/19/17 13:52 Chloride IV 0 mls/hr .Q24H [facility] Infusion Protocol Amiodarone HCl 450 mg/ Sodium 250 mls @ 33.33 mls/hr 08/19/17 12:00 08/19/17 18:00 Chloride IV 08/19/17 18:00 0.99 mg/min .Q7H31M PAOLA 33.33 mls/hr 1 MG/MIN Infusion Amiodarone HCl 900 mg/ Sodium 500 mls @ 16.66 mls/hr 08/19/17 18:00 Chloride IV .Q24H PAOLA 0.5 MG/MIN Amiodarone HCl 150 mg/ Sodium 103 mls @ 618 mls/hr 08/19/17 11:57 08/19/17 12 :52 Chloride IV 08/19/17 12:06 Infused O ONE Infusion Potassium Chloride 10 meq in 100 mls @ 100 mls/hr 08/20/17 05:37 08/20/17 08: 07 Potassium Chloride Premix IV 08/20/17 06:36 Infused O ONE Infusion Lidocaine HCl 10 mg/ Potassium 100 mls @ 50 mls/hr 08/20/17 10:30 08/20/17 19 :55 Chloride 10 meq/ Sodium IV 08/20/17 18:57 Infused Chloride .Q2H [facility] Infusion Sodium Chloride 1,000 mls @ 75 mls/hr 08/24/17 15:45 08/25/17 05:40 1/2 Normal Saline IV 08/25/17 05:04 Infused .[id number] [facility] Infusion Sodium Chloride 1,000 mls @ 250 mls/hr 08/25/17 08:45 08/25/17 09:40 Normal Saline IV 08/25/17 09:44 Not Given .Q4H [facility] Sodium Chloride 1,000 mls @ 50 mls/hr 08/26/17 12:45 09/01/17 09:29 1/2 Normal Saline IV Not Given .Q20H [facility] Ceftriaxone Sodium 1 g/ Sodium 100 mls @ 200 mls/hr 08/26/17 16:15 08/28/17 17:12 Chloride IV Not Given Q24H [facility] Insulin Aspart 1 - 5 unit 08/24/17 21:50 09/04/17 12:07 Novolog SQ 1 unit SS PRN Administration Hyperglycemia Protocol Levothyroxine Sodium 50 mcg 08/16/17 06:30 08/17/17 05:58 Synthroid PO 50 mcg ACB PAOLA Administration Levothyroxine Sodium 50 mcg 08/18/17 06:30 09/04/17 06:00 Synthroid PO 50 mcg ACB PAOLA Administration Lidocaine HCl 2.1 mg 08/25/17 14:30 Xylocaine-Mpf 1% Vial IJ Q24H [facility] Lidocaine HCl 21 mg 08/25/17 14:30 08/29/17 15:47 Xylocaine-Mpf 1% Vial IJ Not Given Q24H [facility] Memantine 10 mg 08/16/17 09:00 09/04/17 08:31 Namenda PO 10 mg BID PAOLA Administration Metoprolol Tartrate 25 mg 08/17/17 03:29 08/17/17 03:59 Lopressor PO 25 mg Q6H PRN Administration Midodrine 5 mg 08/15/17 21:00 08/17/17 08:59 Proamatine PO 5 mg TID PA[facility]A Administration Midodrine 5 mg 08/17/17 09:00 08/18/17 09:28 Proamatine PO 08/18/17 10:00 5 mg TID PA[facility]A Administration Midodrine 5 mg 08/18/17 11:00 09/04/17 12:07 Proamatine PO 5 mg 0700,1100,1500 [facility] Administration Non-Formulary Medication 5,000 mcg 08/16/17 09:00 Cyanocobalamin (Vitamin B-12) [B-12] SL DAILY [facility] Non-Formulary Medication 28 mg 08/16/17 09:00 Memantine Hcl [Namenda Xr] PO DAILY [facility] Non-Formulary Medication 1 tab 08/15/17 21:00 Sitagliptin Phos/Metformin Hcl [Janumet 50-500 Mg Tablet] PO BID [facility] Pom Janumet 50-500 1 tab 08/26/17 09:45 08/26/17 14:55 PO 1 tab DAILY [facility] Administration Ondansetron HCl 4 mg 08/15/17 19:04 08/23/17 09:42 Zofran IVP 4 mg Q6H PRN Administration Nausea &/or vomiting Pharmacy Consult 1 each 08/21/17 22:40 Pharmacy Consult - Fall Risk 08/21/17 22:41 ONE TIME ONE Polyethylene Glycol 17 gm 08/21/17 09:00 09/04/17 08:31 Miralax PO 17 gm DAILY [facility] Administration Potassium Chloride 40 meq 08/19/17 15:36 K-Dur 20 Meq Tablet PO 08/19/17 15:37 O ONE Potassium Chloride 40 meq 08/20/17 05:37 08/20/17 05:44 K-Dur 20 Meq Tablet PO 08/20/17 05:38 40 meq O ONE Administration Potassium Chloride 20 meq 08/20/17 17:30 08/22/17 12:14 K-Dur 20 Meq Tablet PO 20 meq TIDWM [facility]OLA Administration Potassium Chloride 20 meq 08/30/17 10:35 08/30/17 11:20 K-Dur 20 Meq Tablet PO 08/30/17 10:36 20 meq O ONE Administration Senna/Docusate Sodium 1 tab 08/15/17 19:04 08/26/17 09:59 Senna Plus Tablet PO 1 tab BID PRN Administration Constipation Sodium Chloride 10 - 80 ml 08/15/17 15:23 09/03/17 04:04 Iv Flush IVF 30 ml PRN PRN Administration [place] Sodium Chloride 500 ml 08/15/17 15:35 08/21/17 02:54 Normal Saline IV 500 ml PRN PRN Administration Sodium Chloride 10 ml 08/15/17 19:04 08/24/17 15:09 Iv Flush IV 10 ml PRN PRN Administration [place] Sodium Chloride 2 spray 08/18/17 18:44 09/04/17 12:08 Deep Sea Nasal Moisturizing [place] EA NOSTRIL 2 spray QID POALA Administration Sodium Phosphate 1 enema 08/22/17 10:00 Fleet Enema NV PRN PRN Vancomycin HCl 125 mg 08/29/17 21:00 09/04/17 08:31 Vancomycin Oral Liq PO 09/08/17 20:59 125 mg Q6HR PAOLA Administration - Urinary Catheter Management Urethral Cath placed during this visit: no Results 09/04/17 04:50 09/04/17 04:50 Assessment and Plan - Assessment and Plan (1) Atrial fibrillation with RVR Status: Acute (2) Atherosclerotic heart disease of [place] coronary artery without angina pectoris Status: Chronic (3) Nonrheumatic aortic valve stenosis Status: Chronic (4) Syncope and collapse Status: Chronic (5) Hypotension Status: Chronic (6) Type 2 diabetes mellitus without complications Status: Chronic (7) Diastolic CHF Status: Acute - Attestation Attestation Narrative: 09/08/17 14:29 Recommendation After examining the patient I agree with the above assessment. I am involved in the formulation of the patient's plan of care. Hospital Course Summary Disclaimer: The visit summary below is not to be considered part of the above Progress Note.
[2017-09-02] MEDS: VANCOMYCIN 250mg/5ml ORAL LIQ PO SCH ×4 (02:54→20:57)
[2017-09-02] MEDS: MIDODRINE 5 MG TABLET PO SCH ×3 (06:15→15:02)
[2017-09-02] MEDS: LEVOTHYROXINE 50 MCG TABLET PO SCH (06:15)
[2017-09-02] MEDS: CLOPIDOGREL 75 MG TABLET PO SCH (09:58)
[2017-09-02] MEDS: ENOXAPARIN 40 MG/0.4 ML INJECTION SQ SCH (09:59)
[2017-09-02] MEDS: MEMANTINE 10 MG TABLET PO SCH ×2 (09:59→20:57)
[2017-09-02] MEDS: ASPIRIN *EC* 81 MG TABLET PO SCH (09:59)
[2017-09-02] MEDS: AMIODARONE 200 MG TABLET PO SCH (09:59)
[2017-09-02] MEDS: POLYETHYL GLYCOL 3350 17gm PACKET PO SCH (10:00)
[2017-09-02] MEDS: SALINE 0.65% NASAL SPRAY 44 ML BOTTLE EA NOSTRIL SCH ×4 (10:00→21:05)
--- NOTE | 2017-09-02 18:09 | Progress Note ---
- Date 09/02/17 Subjective: Pt more awake this am and is able to converse a little bit. Denies any acute complaints and is oriented to self only. Denies any cp, sob. Objective Vital signs: Temperature 96.5 F L 09/02/17 16:35 Pulse Rate 80 09/02/17 16:35 Respiratory Rate 16 09/02/17 16:35 Blood Pressure 135/90 H 09/02/17 16:35 Pulse Oximetry 97 09/02/17 16:35 Rhythm: Atrial Fibrillation with Normal Ventricular Rate Height/Weight/BMI: Height 5 ft 5 in Weight 62.5 kg Body Mass Index 25.2 - Constitutional Present: no acute distress - Routine HEENT Exam Head: Present: normocephalic, atraumatic - Routine Respiratory Exam Present: CTA bilaterally. Absent: wheezes - Routine Cardiovascular Exam Present: RRR, no murmur - Routine Abdominal Exam Present: soft, non distended, non tender - Routine Extremities Exam Present: no edema. Absent: cyanosis, clubbing - Routine Skin Exam Present: intact, dry. Absent: cyanosis - Routine Neurological Exam Present: alert, altered mental status Results - Labs CBC & Chem 7: 08/31/17 04:08 09/02/17 05:35 Microbiology Results: Microbiology 08/25/17 15:20 Urine, Cath Ortiz Urine Culture - Final Ruchi albicans Assessment and Plan (1) Sepsis Current visit: Yes Status: Acute Assessment and Plan: Sepsis 2/2 UTI -Rocephin course completed -Resolved C. Diff -PO Vanc D Chronic Urinary Retention -Chronic ortiz, since 02/2017 -Changed 08/15/17 AMS/Dementia -Has underlying dementia but likely has hypoactive delirium component Acute Hypoxic Resp Failure -Resolved, on RA -2/2 pulm edema Paroxysmal atrial fibrillation -s/p cardioversion 08/19 -On amio at home Hypothyroid -Cont. home levo Ppx Assessment Severe aortic stenosis Orthostatic hypotension Diabetes mellitus, type 2 CAD H/O Chronic kidney disease, stage III. Hypothyroidism Dementia Chronic constipation Osteoarthritis Hx DVT Hx CVA- 2011 Obstipation - Physician Narrative Narrative: Date: 09/02/17 Time: 175 Hospital Course Summary Disclaimer: The visit summary below is not to be considered part of the above Progress Note. Hospital Course: [facility]. 1L NS initiated in ED. Will continue NS 100cc/hr for hydration. Cefepime 1g IV given in ED. Continue empiric coverage for urinary pathogens with Cefepime IV Q6H. UA culture from 08/14/17 revealing gram negative rods. Monitor for sensitives and new UA culture results. Blood culture obtained and results pending. Monitor closely on telemetry. Continue home medications. Monitor blood pressure closely. Monitor daily weight and urinary output closely for signs of fluid overload. Renal function stable. Upon discharge, patient's care will be returned to Dr Caballero. Patient is a DNR. 08/17/17 Sepsis secondary to UTI as indicated by tachycardia, fever, altered level of consciousness and hypotension. -IVF -Repeat lactate-normalized -Mental status improving UTI -Recurrent, frequent -Indwelling Ortiz- since 02/2017 - changed 08/15/17. -On cefepime -Bl cx NGTD -Urine cx from 08/15 NGTD, the one done on 08/14 growing E. coli sensitive to cefepime Altered level of consciousness. -This is usual for her when she gets an UTI per daughter -She does have underlying dementia -This is improved today Generalized weakness and debility. -Due to UTI -consult PT PAF -Not on OAC -Metoprolol 25mg q6hr prn started by nighttime MD -With her hypotension, she may not tolerate this. -Will try low dose digoxin and monitor History of CVA - 2011. -On aspirin and Plavix Dementia. -On Namenda XR Hypothyroid -continue levothyroxine -Last free T4 1.84 in November 2016 Severe aortic stenosis. -SKYE 0.7cm2 per 08/2016 Orthostatic hypotension -Continue midodrine History of DVT to left arm. -S/P Mechanical clot removal Diabetes mellitus, type 2. -Continue Janumet -Last A1C I can find was in november 2016 and was 5.3% Constipation. -On Colace daily H/O Chronic kidney disease, stage III. -Creatinine normal here and I do not see any elevations in recent history CAD -H/O stents 2016 -HC 08/2016 showing LVEF 65%, SKYE 0.7cm2, 70-80% LAD, 30% LCx, 70-75% RCA -CHRIS to RCA 09/2016 -CHRIS to LAD 01/2017 Hypothyroidism. -Continue levothyroxine Osteoarthritis. 08/18/17 Oxygen needs continue to increase. Chest X-ray this morning does revel small bilateral pleural effusions and pulmonary edema. Lasix 40 mg IV x1 given this morning, will give repeat 40mg IV Lasix this evening. IVF stopped. Continue to monitor urinary output via Ortiz cath (chronic- changed 08/15) Trend daily weights. she is up 5 Kg from admission Change cefepime for ceftriaxone for treatment of Ecoli UTI. Continue to monitor Accu-Cheks Recheck CBC in am due to UTI/Resolving sepsis. Will recheck BMP in am secondary to Lasix use. Lovenox subcutaneous daily for DVT prophylaxis 08/19/17 Transferred to CCU overnight secondary to Afib with RVR, diltiazem drip started. HR showing improvement. Will consult with Dr Vanessa for treatment recommendations for afib. Digoxin level slightly subtherapeutic at 0.7 - could be increased. Will continue with Rocephin for urinary coverage. Lasix 20mg IV x1 to help mobilize pulmonary edema. Will recheck CXR in am. Weight trending down. Output increased with Lasix yesterday. Continue with supplemental O2, weaning as able. Encourage oral intake. 08/20/17 Will start KCL bolus at 50cc/hr as potassium with significant decrease due to Lasix. Weight with decreased. CXR without change, but O2 sats improved with less O2 flow (3L). Continue ceftriaxone for urinary coverage. Encouraging that oral drive increasing. Likely transfer to medical floor later today. Will have PT/OT restart work tomorrow. 08/21/17 CXR showing gradual improvement. O2 needs decreasing (down to 2L, and weaning). Creatinine stable. Potassium improved to 3.7. Will decrease IV Lasix to 40mg twice a day - worry for overdiuresis with patients decreased oral drive. Diamox 500mg x1 as CO2 increasing. Encourage oral intake. Encourage activities with therapy. Will continue Rocephin for urinary coverage. 08/22/17 Continued improvement in CXR and O2 need. Patient still somnolent. Nursing working on increasing bowel motivation. Weight with decrease and creatinine increased to 1.3 -- will stop IV Lasix. Continue Rocephin. Encourage activities and therapy. 08/23/17 Patient still somnolent. Leukocytosis increasing 9.8-->11.9-->13.1 despite continuation of ceftriaxone for UTI (+ sensitivity for ceftriaxone on C&S). Check CXR. Remains in NSR at this time. Continues amiodarone . Cardiology following. Patient with minimal intake. Is on fluid restriction d/t recent fluid overload , but pt isn't taking much po. May consider IVF's if she isn't taking more p.o. 08/24/17 Patient remains somnolent but oral intake is improved today and she is acknowledging examiner also improved from yesterday. Will attempt to get patient up in chair today; PT/OT can attempt ambulation tomorrow. Leukocytosis improved today-may have aspirated with emesis 2 days ago but no indication of aspiration pneumonitis by x-ray. Day 7 ceftriaxone for UTI. Sodium up to 147, BUN up further today. Conjunction with poor oral intake and laboratory signs of dehydration will hydrate with 1 L 1/2 NS. Remains in sinus rhythm by my review of telemetry and exam. Persistent encephalopathy-increase activity as tolerates. Avoid sedating medications. Continue vitamin B 12-will resume oral administration at discharge. Blood sugars stable; blood pressure borderline low-reassess after fluids. 08/25/17 Somnolent, confused. Poor intake with supper last night. Persistent hypernatremia with mild improvement. BUN also improved. Tele reviewed - shows A-fib with normal rate. She went into a-fib around 0500. Hypotension with BP 87/59, UO overall poor over the last few days - give NS 250 mL bolus. CXR from 08/23 reviewed - pulm edema noted; will need to monitor resp status/sats closely. Rocephin day #8 for E. coli UTI. Repeat UC from 08/15 was neg. 08/26/17 Continues to be somnolent, confused. Poor intake. Persistent hypernatremia. Daughter ok with placing midline and starting IVF's. Has remained in NSR since 8am yesterday. UA, performed yesterday d/t somnolence and questionable abdominal pain, + for leuks and bacteria. Urine culture pending. Rocephin day #9 for E. coli UTI. 08/27/17 Repeat UC from 08/25 was positive for ruchi. Will DC Rocephin, s/p 9 days of treatment. Change Ortiz. Na remains elevated at 146 despite starting 1/2NS yesterday. BUN decreased from 43 to 40. Weight is starting to increase; need to monitor closely for pulmonary edema as she required diuresis earlier in her hospital course. Reduce rate of IVF. PAF - continue increased dose of amiodarone. Currently in sinus. Continue therapy as able; pt is limited cognitively and physically. 08/28/17 *CT completed yesterday- possible LLL pneumonia. No intra-abdominal pathology She is not symptomatic, and not febrile. Mild bump in WBC since taken off Ceftriaxone yesterday. Will hold off on restarting abx- Repeat CXR and Labs in AM and monitor for fever. *Weight has stabilized with decrease in IVF. She does not appear overloaded at this time. Will monitor closely due to severe A.S., risk of pulmonary edema. Labs do look a bit better today. She is still not taking much in by mouth. HR is controlled- continue current. Remains in SR at this time. Continue low dose Midodrine for BP support. 08/29/17 Ceftriaxone DC'd yesterday. She appears to be doing well. Afebrile. Mild leukocytosis resolved. Mental status is a bit improved today- she is more conversive. HR is regular at the time of my exam. No evidence of edema. CXR looks good. BG well controlled. Continue supportive medication. Follow up labs in AM. Still not eating or drinking much- continue gentle IVF for now. Weight is down a bit, but overall is stable. 08/30/17 Continue oral vancomycin for C. difficile. This was started on 08/29/17. Antibiotics for UTI have been discontinued. Mild hypokalemia at 3.5 - replace orally. Mg level stable at 1.9. Continue gentle IVF - appetite & oral intake still poor. 08/31/17 More awake and conversational today, but appetite and oral intake remains poor. Continue low volume half-normal saline. Continue oral vancomycin for C. difficile. This was started on 08/29/17. She had 2 bowel movements yesterday. Potassium level has been corrected to 3.9 today. 08/31/17 Breath sounds are decreased in the bases. Her weight is slowly trending back up. She is not having significant GI losses from diarrhea. Will stop IV fluids and monitor oral intake. Continue oral vancomycin for C. difficile, day #4. 09/02/17 Pt improved this am. Pt is close to being discharged but will need to discuss with daughter a safe plan. Pt is a bit somnolent sometimes but that is likely hypoactive delirium and unlikely to improve in hospital.
[2017-09-03] MEDS: VANCOMYCIN 250mg/5ml ORAL LIQ PO SCH ×4 (02:44→21:29)
[2017-09-03] MEDS: SALINE FLUSH 10ml SYRINGE IVF PRN (04:04)
[2017-09-03] MEDS: MIDODRINE 5 MG TABLET PO SCH ×3 (06:08→16:06)
[2017-09-03] MEDS: LEVOTHYROXINE 50 MCG TABLET PO SCH (06:08)
[2017-09-03] MEDS: CLOPIDOGREL 75 MG TABLET PO SCH (09:51)
[2017-09-03] MEDS: POLYETHYL GLYCOL 3350 17gm PACKET PO SCH (09:51)
[2017-09-03] MEDS: MEMANTINE 10 MG TABLET PO SCH ×2 (09:51→21:27)
[2017-09-03] MEDS: AMIODARONE 200 MG TABLET PO SCH (09:51)
[2017-09-03] MEDS: ASPIRIN *EC* 81 MG TABLET PO SCH (09:51)
[2017-09-03] MEDS: ENOXAPARIN 40 MG/0.4 ML INJECTION SQ SCH (09:51)
[2017-09-03] MEDS: SALINE 0.65% NASAL SPRAY 44 ML BOTTLE EA NOSTRIL SCH ×4 (09:52→21:29)
--- NOTE | 2017-09-03 10:14 | Progress Note ---
- Date 09/03/17 Subjective: Naseem is seen today in follow up. She is sleeping throughout exam. Appears comfortable. Chart is reviewed for collateral information. Objective Vital signs: Temperature 97.1 F 09/03/17 08:00 Pulse Rate 67 09/03/17 08:00 Respiratory Rate 16 09/03/17 08:00 Blood Pressure 131/65 09/03/17 08:00 Pulse Oximetry 95 09/03/17 08:00 Rhythm: Atrial Fibrillation with Normal Ventricular Rate Height/Weight/BMI: Height 1.65 m Weight 61.1 kg Body Mass Index 25.2 - Constitutional Present: no acute distress, average body habitus - Routine HEENT Exam Head: Present: normocephalic, atraumatic - Routine Respiratory Exam Present: CTA bilaterally. Absent: rales, rhonchi, crackles - Routine Cardiovascular Exam Present: RRR, S1, S2, murmur (Faint, systolic) - Routine Abdominal Exam Present: soft, normoactive bowel sounds, non distended, non tender - Routine Extremities Exam Present: edema (Trace LE edema), non tender - Routine Skin Exam Present: intact, dry, warm - Routine Psychiatric Exam Present: unable to assess (Sleeping) Results - Labs CBC & Chem 7: 09/03/17 04:06 09/03/17 04:07 Microbiology Results: Microbiology 08/25/17 15:20 Urine, Cath Ramirez Urine Culture - Final Rosalba albicans Assessment and Plan (1) Sepsis Current visit: Yes Status: Acute Assessment and Plan: Assessment Severe aortic stenosis Orthostatic hypotension Diabetes mellitus, type 2 CAD H/O Chronic kidney disease, stage III. Hypothyroidism Dementia Chronic constipation Osteoarthritis Hx DVT Hx CVA- 2011 Obstipation, resolved pAFib C.Difficile infection Chronic urinary retention with Ramirez Sepsis due to UTI, resolved Plan: 09/03/17 Patient continues to improve. Continue PO Vanco for C.Difficile infection x 10-14 days. BG is well controlled. Continue supportive care. Chronic bacteruria will continue to be an issue with ongoing Ramirez cath. Chronic mentation changes- dementia +/- delirium. She is more alert at times during the day, which is an improvement. DC planning. DVT Prophylaxis: SCD's Resuscitation Status: Do Not Resuscitate - Physician Narrative Narrative: Date: 09/03/17 Time: 1503 Pt doing better and able to converse well in the am. She denies any acute complaints. Pt has systolic murmur but is RRR. Pt is medically stable and is close to being discharged. Will discuss discharge plan with daughter today. Hospital Course Summary Disclaimer: The visit summary below is not to be considered part of the above Progress Note. Hospital Course: [facility] of Dr. Martinez. 1L NS initiated in ED. Will continue NS 100cc/hr for hydration. Cefepime 1g IV given in ED. Continue empiric coverage for urinary pathogens with Cefepime IV Q6H. UA culture from 08/14/17 revealing gram negative rods. Monitor for sensitives and new UA culture results. Blood culture obtained and results pending. Monitor closely on telemetry. Continue home medications. Monitor blood pressure closely. Monitor daily weight and urinary output closely for signs of fluid overload. Renal function stable. Upon discharge, patient's care will be returned to Dr Caballero. Patient is a DNR. 08/17/17 Sepsis secondary to UTI as indicated by tachycardia, fever, altered level of consciousness and hypotension. -IVF -Repeat lactate-normalized -Mental status improving UTI -Recurrent, frequent -Indwelling Ramirez- since 02/2017 - changed 08/15/17. -On cefepime -Bl cx NGTD -Urine cx from 08/15 NGTD, the one done on 08/14 growing E. coli sensitive to cefepime Altered level of consciousness. -This is usual for her when she gets an UTI per daughter -She does have underlying dementia -This is improved today Generalized weakness and debility. -Due to UTI -consult PT PAF -Not on OAC -Metoprolol 25mg q6hr prn started by nighttime MD -With her hypotension, she may not tolerate this. -Will try low dose digoxin and monitor History of CVA - 2011. -On aspirin and Plavix Dementia. -On Namenda XR Hypothyroid -continue levothyroxine -Last free T4 1.84 in November 2016 Severe aortic stenosis. -SKYE 0.7cm2 per HC 08/2016 Orthostatic hypotension -Continue midodrine History of DVT to left arm. -S/P Mechanical clot removal Diabetes mellitus, type 2. -Continue Janumet -Last A1C I can find was in november 2016 and was 5.3% Constipation. -On Colace daily H/O Chronic kidney disease, stage III. -Creatinine normal here and I do not see any elevations in recent history CAD -H/O stents 2016 -HC 08/2016 showing LVEF 65%, SKYE 0.7cm2, 70-80% LAD, 30% LCx, 70-75% RCA -CHRIS to RCA 09/2016 -CHRIS to LAD 01/2017 Hypothyroidism. -Continue levothyroxine Osteoarthritis. 08/18/17 Oxygen needs continue to increase. Chest X-ray this morning does revel small bilateral pleural effusions and pulmonary edema. Lasix 40 mg IV x1 given this morning, will give repeat 40mg IV Lasix this evening. IVF stopped. Continue to monitor urinary output via Ramirez cath (chronic- changed 08/15) Trend daily weights. she is up 5 Kg from admission Change cefepime for ceftriaxone for treatment of Ecoli UTI. Continue to monitor Accu-Cheks Recheck CBC in am due to UTI/Resolving sepsis. Will recheck BMP in am secondary to Lasix use. Lovenox subcutaneous daily for DVT prophylaxis 08/19/17 Transferred to CCU overnight secondary to Afib with RVR, diltiazem drip started. HR showing improvement. Will consult with Dr Vanessa for treatment recommendations for afib. Digoxin level slightly subtherapeutic at 0.7 - could be increased. Will continue with Rocephin for urinary coverage. Lasix 20mg IV x1 to help mobilize pulmonary edema. Will recheck CXR in am. Weight trending down. Output increased with Lasix yesterday. Continue with supplemental O2, weaning as able. Encourage oral intake. 08/20/17 Will start KCL bolus at 50cc/hr as potassium with significant decrease due to Lasix. Weight with decreased. CXR without change, but O2 sats improved with less O2 flow (3L). Continue ceftriaxone for urinary coverage. Encouraging that oral drive increasing. Likely transfer to medical floor later today. Will have PT/OT restart work tomorrow. 08/21/17 CXR showing gradual improvement. O2 needs decreasing (down to 2L, and weaning). Creatinine stable. Potassium improved to 3.7. Will decrease IV Lasix to 40mg twice a day - worry for overdiuresis with patients decreased oral drive. Diamox 500mg x1 as CO2 increasing. Encourage oral intake. Encourage activities with therapy. Will continue Rocephin for urinary coverage. 08/22/17 Continued improvement in CXR and O2 need. Patient still somnolent. Nursing working on increasing bowel motivation. Weight with decrease and creatinine increased to 1.3 -- will stop IV Lasix. Continue Rocephin. Encourage activities and therapy. 08/23/17 Patient still somnolent. Leukocytosis increasing 9.8-->11.9-->13.1 despite continuation of ceftriaxone for UTI (+ sensitivity for ceftriaxone on C&S). Check CXR. Remains in NSR at this time. Continues amiodarone . Cardiology following. Patient with minimal intake. Is on fluid restriction d/t recent fluid overload , but pt isn't taking much po. May consider IVF's if she isn't taking more p.o. 08/24/17 Patient remains somnolent but oral intake is improved today and she is acknowledging examiner also improved from yesterday. Will attempt to get patient up in chair today; PT/OT can attempt ambulation tomorrow. Leukocytosis improved today-may have aspirated with emesis 2 days ago but no indication of aspiration pneumonitis by x-ray. Day 7 ceftriaxone for UTI. Sodium up to 147, BUN up further today. Conjunction with poor oral intake and laboratory signs of dehydration will hydrate with 1 L 1/2 NS. Remains in sinus rhythm by my review of telemetry and exam. Persistent encephalopathy-increase activity as tolerates. Avoid sedating medications. Continue vitamin B 12-will resume oral administration at discharge. Blood sugars stable; blood pressure borderline low-reassess after fluids. 08/25/17 Somnolent, confused. Poor intake with supper last night. Persistent hypernatremia with mild improvement. BUN also improved. Tele reviewed - shows A-fib with normal rate. She went into a-fib around 0500. Hypotension with BP 87/59, UO overall poor over the last few days - give NS 250 mL bolus. CXR from 08/23 reviewed - pulm edema noted; will need to monitor resp status/sats closely. Rocephin day #8 for E. coli UTI. Repeat UC from 08/15 was neg. 08/26/17 Continues to be somnolent, confused. Poor intake. Persistent hypernatremia. Daughter ok with placing midline and starting IVF's. Has remained in NSR since 8am yesterday. UA, performed yesterday d/t somnolence and questionable abdominal pain, + for leuks and bacteria. Urine culture pending. Rocephin day #9 for E. coli UTI. 08/27/17 Repeat UC from 08/25 was positive for rosalba. Will DC Rocephin, s/p 9 days of treatment. Change Ramirez. Na remains elevated at 146 despite starting 1/2NS yesterday. BUN decreased from 43 to 40. Weight is starting to increase; need to monitor closely for pulmonary edema as she required diuresis earlier in her hospital course. Reduce rate of IVF. PAF - continue increased dose of amiodarone. Currently in sinus. Continue therapy as able; pt is limited cognitively and physically. 08/28/17 *CT completed yesterday- possible LLL pneumonia. No intra-abdominal pathology She is not symptomatic, and not febrile. Mild bump in WBC since taken off Ceftriaxone yesterday. Will hold off on restarting abx- Repeat CXR and Labs in AM and monitor for fever. *Weight has stabilized with decrease in IVF. She does not appear overloaded at this time. Will monitor closely due to severe A.S., risk of pulmonary edema. Labs do look a bit better today. She is still not taking much in by mouth. HR is controlled- continue current. Remains in SR at this time. Continue low dose Midodrine for BP support. 08/29/17 Ceftriaxone DC'd yesterday. She appears to be doing well. Afebrile. Mild leukocytosis resolved. Mental status is a bit improved today- she is more conversive. HR is regular at the time of my exam. No evidence of edema. CXR looks good. BG well controlled. Continue supportive medication. Follow up labs in AM. Still not eating or drinking much- continue gentle IVF for now. Weight is down a bit, but overall is stable. 08/30/17 Continue oral vancomycin for C. difficile. This was started on 08/29/17. Antibiotics for UTI have been discontinued. Mild hypokalemia at 3.5 - replace orally. Mg level stable at 1.9. Continue gentle IVF - appetite & oral intake still poor. 08/31/17 More awake and conversational today, but appetite and oral intake remains poor. Continue low volume half-normal saline. Continue oral vancomycin for C. difficile. This was started on 08/29/17. She had 2 bowel movements yesterday. Potassium level has been corrected to 3.9 today. 08/31/17 Breath sounds are decreased in the bases. Her weight is slowly trending back up. She is not having significant GI losses from diarrhea. Will stop IV fluids and monitor oral intake. Continue oral vancomycin for C. difficile, day #4. 09/02/17 Pt improved this am. Pt is close to being discharged but will need to discuss with daughter a safe plan. Pt is a bit somnolent sometimes but that is likely hypoactive delirium and unlikely to improve in hospital. Plan: 09/03/17 Patient continues to improve. Continue PO Vanco for C.Difficile infection x 10-14 days. BG is well controlled. Continue supportive care. Chronic bacteruria will continue to be an issue with ongoing Ramirez cath. Chronic mentation changes- dementia +/- delirium. She is more alert at times during the day, which is an improvement. DC planning.
[2017-09-03] MEDS: INSULIN ASPART 100unit/ml INJECTION SQ PRN ×2 (10:59→22:02)
[2017-09-03] MEDS: ACETAMINOPHEN 325 MG TABLET PO PRN (13:03)
[2017-09-04] MEDS: VANCOMYCIN 250mg/5ml ORAL LIQ PO SCH ×2 (03:00→08:31)
[2017-09-04] MEDS: MIDODRINE 5 MG TABLET PO SCH ×2 (06:00→12:07)
[2017-09-04] MEDS: LEVOTHYROXINE 50 MCG TABLET PO SCH (06:00)
[2017-09-04] MEDS: INSULIN ASPART 100unit/ml INJECTION SQ PRN ×2 (06:01→12:07)
[2017-09-04 08:24] VITALS: O2SAT 98
[2017-09-04] MEDS: AMIODARONE 200 MG TABLET PO SCH (08:31)
[2017-09-04] MEDS: MEMANTINE 10 MG TABLET PO SCH (08:31)
[2017-09-04] MEDS: ENOXAPARIN 40 MG/0.4 ML INJECTION SQ SCH (08:31)
[2017-09-04] MEDS: ASPIRIN *EC* 81 MG TABLET PO SCH (08:31)
[2017-09-04] MEDS: POLYETHYL GLYCOL 3350 17gm PACKET PO SCH (08:31)
[2017-09-04] MEDS: CLOPIDOGREL 75 MG TABLET PO SCH (08:32)
[2017-09-04] MEDS: SALINE 0.65% NASAL SPRAY 44 ML BOTTLE EA NOSTRIL SCH ×2 (08:32→12:08)
--- NOTE | 2017-09-04 11:33 | Extended Care Facility Orders ---
Admission Orders Admit to:: Shelter Allergies/Adverse Reactions: Allergies lisinopril Allergy (Severe, Verified 05/08/17 19:15) Airway Obstruction Admitting Diagnosis: CAUTI Admitting Physician: Trini Velasco MD Attending Physician: Trini Velasco MD Code Status: Do Not Resuscitate Anticiapted Length of Stay: 30 days or less Rehab Potential: fair Rehab Prognosis: fair Diet: 08/19/17 Dinner Cardiac Diet [DIET] Sodium Restriction: 2GRAM Fluid Restriction: FR 2000ML Fat Content: LOW Food Consistency: PUREE Fluid Consistency: REGLIQU Evaluations/Treatment: PT, OT, as needed Shelter Certification: I certify that SNF services are required to be given on an Inpatient basis because of the patients need for detention care on a continuing basis for the condition(s) for which he/she received inpatient hospital services prior to his/her transfer to the SNF. SNF inpatient care is necessary for the following reasons - Additional Information
[2017-09-04 12:01] VITALS: BP 96/56; PULSE 61; RESP 16; TEMP 95.2
--- NOTE | 2017-09-04 12:42 | Discharge Summary ---
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 Hypothyroidism Dementia Chronic constipation Osteoarthritis Hx DVT Hx CVA- 2011 Obstipation, resolved pAFib C.Difficile infection Chronic urinary retention with Ortiz Sepsis due to UTI, resolved - Procedures Procedures: Echo IMPRESSION 1. Normal LV systolic function with ejection fraction of 58%. 2. Left atrial dilation. 3. Mitral annulus calcification with mitral sclerosis and moderate mitral regurgitation. 4. Aortic stenosis with a valve area of 0.72 cm2. 5. Mild tricuspid regurgitation with moderate pulmonary hypertension with estimated pulmonary artery systolic pressure of 44. - Laboratory Labs: 09/04/17 04:50 09/04/17 04:50 C.Diff + 08/29/17 - Microbiology Microbiology 08/25/17 15:20 Urine, Cath Ortiz Urine Culture - Final Rosalba albicans - Radiology Radiology: CT HEAD IMPRESSION: 1. No CT evidence of acute intracranial process. 2. Diffuse cortical atrophy and diffuse periventricular mild matter chronic small vessel ischemic change. 3. Old bilateral ischemic insults. . CT A/P Impression: Lower lobe pneumonia or aspiration. No acute disease process seen in the abdomen or pelvis. . CXR Comparison: August 23, 2017 Findings: Lungs are stable in appearance.. No new or worsening airspace disease. Trace effusions. No pneumothorax. Heart size and mediastinal contours are stable. Impression: Stable appearance of the chest. . History of Present Illness HPI: Naseem La (Joann) is a pleasant 87-year-old female patient of Dr. Caballero with a history of frequent UTI and chronic indwelling Ortiz catheter since 02/2017. On 07/28/17 she was believed to have a UTI and was started on Keflex by Dr. Caballero. Culture from the urine revealed Rosalba albicans and the Keflex was discontinued. Over the next week or so, the daughter who is Ms. La's primary care assistant and DPOA, became concerned that her urine was more cloudy than usual. Per the daughter, she was seen in the clinic on/around 08/06/17 and reassured that the cloudy urine was normal for patient's with indwelling Ortiz catheters and it was unlikely that she had a UTI as she had recently been treated with Keflex and she was asymptomatic. Family reports that no UA was collected at that time. Since then, family reports that she has had progressive generalized weakness with increased fatigue. Family reports that she is usually very active, alert and lively. On 08/14/17, Ms. La began running a fever with sweating, decreased appetite and reported hallucinations while at home. Her daughter also reported a very strong foul odor from her urine. She called her home health nurse who obtained a urine sample on 08/14/17 which revealed a UTI. Dr. Caballero initiated treatment with Bactrim and the urine was sent for culture. Family reports that the patient was able to take her Bactrim last night and this morning. Family reports that this morning, she had increased lethargy with worsening generalized weakness. The home health nurse was called and came to the house to assess the patient at which time it was noted that in addition to her altered level of consciousness, she was also tachycardic with borderline low blood pressure and febrile. Family reports that the patient always has low blood pressure (average of 100/65) and takes midodrine daily). Dr. Caballero encouraged the patient to be evaluated in the ED. Upon arrival to the ED, Ms. La was tachycardiac (heart rate 108) with a blood pressure of 95/54. Labs were obtained and were relatively unremarkable. UA revealed 20-30 WBC with 1+ bacteria. Family states that her indwelling ortiz catheter was changed by the home health nurse prior arrival. The urine culture from the UA on 08/14/17 obtained by [facility] is revealing early growth with gram negative rods. She was given 1L NS and started on cefepime 1g IV for empiric coverage of suspected urinary pathogens. Lactate was 1.7. Due to her apparent sepsis secondary to UTI as indicated by her tachycardia, hypotension, reported fever and altered mental status, Dr. Martinez was consulted and she was accepted into inpatient status for IV antibiotics, close monitoring of hemodynamic stability, IV fluids and continued care. Her length of stay is expected to exceed more than 2 over nights. Objective Vital signs: Temperature 95.2 F L 09/04/17 12:00 Pulse Rate 61 09/04/17 12:00 Respiratory Rate 16 09/04/17 12:00 Blood Pressure 96/56 09/04/17 12:00 Pulse Oximetry 98 09/04/17 08:21 Rhythm: Atrial Fibrillation with Normal Ventricular Rate Height/Weight/BMI: Height 1.65 m Weight 61.9 kg Body Mass Index 25.2 - Constitutional Present: no acute distress (Frail, elderly), average body habitus, cooperative - Routine HEENT Exam Head: Present: normocephalic, atraumatic Eye: Present: EOMI, PERRL - Routine Respiratory Exam Present: decreased breath sounds. Absent: dyspnea, rales, rhonchi, crackles - Routine Cardiovascular Exam Present: S1, S2, murmur, irregular rhythm - Routine Abdominal Exam Present: soft, normoactive bowel sounds, non distended, non tender - Routine Exam Comments: Ortiz- clear yellow - Routine Extremities Exam Present: no edema, non tender - Routine Skin Exam Present: intact, dry, warm - Routine Neurological Exam Present: moving all extremities - Routine Psychiatric Exam Present: cooperative. Absent: good insight, good judgment Hospital Course This is a general summary of the patient's hospital course. For more details refer to the complete medical record. Hospital Course: [facility]. 1L NS initiated in ED. Will continue NS 100cc/hr for hydration. Cefepime 1g IV given in ED. Continue empiric coverage for urinary pathogens with Cefepime IV Q6H. UA culture from 08/14/17 revealing gram negative rods. Monitor for sensitives and new UA culture results. Blood culture obtained and results pending. Monitor closely on telemetry. Continue home medications. Monitor blood pressure closely. Monitor daily weight and urinary output closely for signs of fluid overload. Renal function stable. Upon discharge, patient's care will be returned to Dr Caballero. Patient is a DNR. 08/17/17 Sepsis secondary to UTI as indicated by tachycardia, fever, altered level of consciousness and hypotension. -IVF -Repeat lactate-normalized -Mental status improving UTI -Recurrent, frequent -Indwelling Ortiz- since 02/2017 - changed 08/15/17. -On cefepime -Bl cx NGTD -Urine cx from 08/15 NGTD, the one done on 08/14 growing E. coli sensitive to cefepime Altered level of consciousness. -This is usual for her when she gets an UTI per daughter -She does have underlying dementia -This is improved today Generalized weakness and debility. -Due to UTI -consult PT PAF -Not on OAC -Metoprolol 25mg q6hr prn started by nighttime MD -With her hypotension, she may not tolerate this. -Will try low dose digoxin and monitor History of CVA - 2011. -On aspirin and Plavix Dementia. -On Namenda XR Hypothyroid -continue levothyroxine -Last free T4 1.84 in November 2016 Severe aortic stenosis. -SKYE 0.7cm2 per 08/2016 Orthostatic hypotension -Continue midodrine History of DVT to left arm. -S/P Mechanical clot removal Diabetes mellitus, type 2. -Continue Janumet -Last A1C I can find was in november 2016 and was 5.3% Constipation. -On Colace daily H/O Chronic kidney disease, stage III. -Creatinine normal here and I do not see any elevations in recent history CAD -H/O stents 2016 -HC 08/2016 showing LVEF 65%, SKYE 0.7cm2, 70-80% LAD, 30% LCx, 70-75% RCA -CHRIS to RCA 09/2016 -CHRIS to LAD 01/2017 Hypothyroidism. -Continue levothyroxine Osteoarthritis. 08/18/17 Oxygen needs continue to increase. Chest X-ray this morning does revel small bilateral pleural effusions and pulmonary edema. Lasix 40 mg IV x1 given this morning, will give repeat 40mg IV Lasix this evening. IVF stopped. Continue to monitor urinary output via Ortiz cath (chronic- changed 08/15) Trend daily weights. she is up 5 Kg from admission Change cefepime for ceftriaxone for treatment of Ecoli UTI. Continue to monitor Accu-Cheks Recheck CBC in am due to UTI/Resolving sepsis. Will recheck BMP in am secondary to Lasix use. Lovenox subcutaneous daily for DVT prophylaxis 08/19/17 Transferred to CCU overnight secondary to Afib with RVR, diltiazem drip started. HR showing improvement. Will consult with Dr Vanessa for treatment recommendations for afib. Digoxin level slightly subtherapeutic at 0.7 - could be increased. Will continue with Rocephin for urinary coverage. Lasix 20mg IV x1 to help mobilize pulmonary edema. Will recheck CXR in am. Weight trending down. Output increased with Lasix yesterday. Continue with supplemental O2, weaning as able. Encourage oral intake. 08/20/17 Will start KCL bolus at 50cc/hr as potassium with significant decrease due to Lasix. Weight with decreased. CXR without change, but O2 sats improved with less O2 flow (3L). Continue ceftriaxone for urinary coverage. Encouraging that oral drive increasing. Likely transfer to medical floor later today. Will have PT/OT restart work tomorrow. 08/21/17 CXR showing gradual improvement. O2 needs decreasing (down to 2L, and weaning). Creatinine stable. Potassium improved to 3.7. Will decrease IV Lasix to 40mg twice a day - worry for overdiuresis with patients decreased oral drive. Diamox 500mg x1 as CO2 increasing. Encourage oral intake. Encourage activities with therapy. Will continue Rocephin for urinary coverage. 08/22/17 Continued improvement in CXR and O2 need. Patient still somnolent. Nursing working on increasing bowel motivation. Weight with decrease and creatinine increased to 1.3 -- will stop IV Lasix. Continue Rocephin. Encourage activities and therapy. 08/23/17 Patient still somnolent. Leukocytosis increasing 9.8-->11.9-->13.1 despite continuation of ceftriaxone for UTI (+ sensitivity for ceftriaxone on C&S). Check CXR. Remains in NSR at this time. Continues amiodarone . Cardiology following. Patient with minimal intake. Is on fluid restriction d/t recent fluid overload , but pt isn't taking much po. May consider IVF's if she isn't taking more p.o. 08/24/17 Patient remains somnolent but oral intake is improved today and she is acknowledging examiner also improved from yesterday. Will attempt to get patient up in chair today; PT/OT can attempt ambulation tomorrow. Leukocytosis improved today-may have aspirated with emesis 2 days ago but no indication of aspiration pneumonitis by x-ray. Day 7 ceftriaxone for UTI. Sodium up to 147, BUN up further today. Conjunction with poor oral intake and laboratory signs of dehydration will hydrate with 1 L 1/2 NS. Remains in sinus rhythm by my review of telemetry and exam. Persistent encephalopathy-increase activity as tolerates. Avoid sedating medications. Continue vitamin B 12-will resume oral administration at discharge. Blood sugars stable; blood pressure borderline low-reassess after fluids. 08/25/17 Somnolent, confused. Poor intake with supper last night. Persistent hypernatremia with mild improvement. BUN also improved. Tele reviewed - shows A-fib with normal rate. She went into a-fib around 0500. Hypotension with BP 87/59, UO overall poor over the last few days - give NS 250 mL bolus. CXR from 08/23 reviewed - pulm edema noted; will need to monitor resp status/sats closely. Rocephin day #8 for E. coli UTI. Repeat UC from 08/15 was neg. 08/26/17 Continues to be somnolent, confused. Poor intake. Persistent hypernatremia. Daughter ok with placing midline and starting IVF's. Has remained in NSR since 8am yesterday. UA, performed yesterday d/t somnolence and questionable abdominal pain, + for leuks and bacteria. Urine culture pending. Rocephin day #9 for E. coli UTI. 08/27/17 Repeat UC from 08/25 was positive for rosalba. Will DC Rocephin, s/p 9 days of treatment. Change Ortiz. Na remains elevated at 146 despite starting 1/2NS yesterday. BUN decreased from 43 to 40. Weight is starting to increase; need to monitor closely for pulmonary edema as she required diuresis earlier in her hospital course. Reduce rate of IVF. PAF - continue increased dose of amiodarone. Currently in sinus. Continue therapy as able; pt is limited cognitively and physically. 08/28/17 *CT completed yesterday- possible LLL pneumonia. No intra-abdominal pathology She is not symptomatic, and not febrile. Mild bump in WBC since taken off Ceftriaxone yesterday. Will hold off on restarting abx- Repeat CXR and Labs in AM and monitor for fever. *Weight has stabilized with decrease in IVF. She does not appear overloaded at this time. Will monitor closely due to severe A.S., risk of pulmonary edema. Labs do look a bit better today. She is still not taking much in by mouth. HR is controlled- continue current. Remains in SR at this time. Continue low dose Midodrine for BP support. 08/29/17 Ceftriaxone DC'd yesterday. She appears to be doing well. Afebrile. Mild leukocytosis resolved. Mental status is a bit improved today- she is more conversive. HR is regular at the time of my exam. No evidence of edema. CXR looks good. BG well controlled. Continue supportive medication. Follow up labs in AM. Still not eating or drinking much- continue gentle IVF for now. Weight is down a bit, but overall is stable. 08/30/17 Continue oral vancomycin for C. difficile. This was started on 08/29/17. Antibiotics for UTI have been discontinued. Mild hypokalemia at 3.5 - replace orally. Mg level stable at 1.9. Continue gentle IVF - appetite & oral intake still poor. 08/31/17 More awake and conversational today, but appetite and oral intake remains poor. Continue low volume half-normal saline. Continue oral vancomycin for C. difficile. This was started on 08/29/17. She had 2 bowel movements yesterday. Potassium level has been corrected to 3.9 today. 08/31/17 Breath sounds are decreased in the bases. Her weight is slowly trending back up. She is not having significant GI losses from diarrhea. Will stop IV fluids and monitor oral intake. Continue oral vancomycin for C. difficile, day #4. 09/02/17 Pt improved this am. Pt is close to being discharged but will need to discuss with daughter a safe plan. Pt is a bit somnolent sometimes but that is likely hypoactive delirium and unlikely to improve in hospital. 09/03/17 Patient continues to improve. Continue PO Vanco for C.Difficile infection x 10-14 days. BG is well controlled. Continue supportive care. 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 Chronic mentation changes- dementia +/- delirium. She is more alert at times during the day, which is an improvement. DC planning. 09/04/17 DC planning completed- pt to dismiss to [facility] for SNU today. Patient is alert and a bit withdrawn, but appears medically stable. She nods head to questions, denies pain when I ask. She does have a chronic Ortiz that will need to be changed Q month at minimum. Continue Vanco x 10-14 days. Day #8. Last BM documented yesterday. no longer having loose stools. She remains frail, elderly. PT/OT/ST will be needed. Hospital course: 08/15/17 Admit to [facility] status under the care of Dr. Martinez. 1L NS initiated in ED. Will continue NS 100cc/hr for hydration. Cefepime 1g IV given in ED. Continue empiric coverage for urinary pathogens with Cefepime IV Q6H. UA culture from 08/14/17 revealing gram negative rods. Monitor for sensitives and new UA culture results. Blood culture obtained and results pending. Monitor closely on telemetry. Continue home medications. Monitor blood pressure closely. Monitor daily weight and urinary output closely for signs of fluid overload. Renal function stable. Upon discharge, patient's care will be returned to Dr Caballero. Patient is a DNR. 08/17/17 Sepsis secondary to UTI as indicated by tachycardia, fever, altered level of consciousness and hypotension. -IVF -Repeat lactate-normalized -Mental status improving UTI -Recurrent, frequent -Indwelling Ortiz- since 02/2017 - changed 08/15/17. -On cefepime -Bl cx NGTD -Urine cx from 08/15 NGTD, the one done on 08/14 growing E. coli sensitive to cefepime Altered level of consciousness. -This is usual for her when she gets an UTI per daughter -She does have underlying dementia -This is improved today Generalized weakness and debility. -Due to UTI -consult PT PAF -Not on OAC -Metoprolol 25mg q6hr prn started by nighttime MD -With her hypotension, she may not tolerate this. -Will try low dose digoxin and monitor History of CVA - 2011. -On aspirin and Plavix Dementia. -On Namenda XR Hypothyroid -continue levothyroxine -Last free T4 1.84 in November 2016 Severe aortic stenosis. -SKYE 0.7cm2 per HC 08/2016 Orthostatic hypotension -Continue midodrine History of DVT to left arm. -S/P Mechanical clot removal Diabetes mellitus, type 2. -Continue Janumet -Last A1C I can find was in november 2016 and was 5.3% Constipation. -On Colace daily H/O Chronic kidney disease, stage III. -Creatinine normal here and I do not see any elevations in recent history CAD -H/O stents 2016 -HC 08/2016 showing LVEF 65%, SKYE 0.7cm2, 70-80% LAD, 30% LCx, 70-75% RCA -CHRIS to RCA 09/2016 -CHRIS to LAD 01/2017 Hypothyroidism. -Continue levothyroxine Osteoarthritis. 08/18/17 Oxygen needs continue to increase. Chest X-ray this morning does revel small bilateral pleural effusions and pulmonary edema. Lasix 40 mg IV x1 given this morning, will give repeat 40mg IV Lasix this evening. IVF stopped. Continue to monitor urinary output via Ortiz cath (chronic- changed 08/15) Trend daily weights. she is up 5 Kg from admission Change cefepime for ceftriaxone for treatment of Ecoli UTI. Continue to monitor Accu-Cheks Recheck CBC in am due to UTI/Resolving sepsis. Will recheck BMP in am secondary to Lasix use. Lovenox subcutaneous daily for DVT prophylaxis 08/19/17 Transferred to CCU overnight secondary to Afib with RVR, diltiazem drip started. HR showing improvement. Will consult with Dr Vanessa for treatment recommendations for afib. Digoxin level slightly subtherapeutic at 0.7 - could be increased. Will continue with Rocephin for urinary coverage. Lasix 20mg IV x1 to help mobilize pulmonary edema. Will recheck CXR in am. Weight trending down. Output increased with Lasix yesterday. Continue with supplemental O2, weaning as able. Encourage oral intake. 08/20/17 Will start KCL bolus at 50cc/hr as potassium with significant decrease due to Lasix. Weight with decreased. CXR without change, but O2 sats improved with less O2 flow (3L). Continue ceftriaxone for urinary coverage. Encouraging that oral drive increasing. Likely transfer to medical floor later today. Will have PT/OT restart work tomorrow. 08/21/17 CXR showing gradual improvement. O2 needs decreasing (down to 2L, and weaning). Creatinine stable. Potassium improved to 3.7. Will decrease IV Lasix to 40mg twice a day - worry for overdiuresis with patients decreased oral drive. Diamox 500mg x1 as CO2 increasing. Encourage oral intake. Encourage activities with therapy. Will continue Rocephin for urinary coverage. 08/22/17 Continued improvement in CXR and O2 need. Patient still somnolent. Nursing working on increasing bowel motivation. Weight with decrease and creatinine increased to 1.3 -- will stop IV Lasix. Continue Rocephin. Encourage activities and therapy. 08/23/17 Patient still somnolent. Leukocytosis increasing 9.8-->11.9-->13.1 despite continuation of ceftriaxone for UTI (+ sensitivity for ceftriaxone on C&S). Check CXR. Remains in NSR at this time. Continues amiodarone . Cardiology following. Patient with minimal intake. Is on fluid restriction d/t recent fluid overload , but pt isn't taking much po. May consider IVF's if she isn't taking more p.o. 08/24/17 Patient remains somnolent but oral intake is improved today and she is acknowledging examiner also improved from yesterday. Will attempt to get patient up in chair today; PT/OT can attempt ambulation tomorrow. Leukocytosis improved today-may have aspirated with emesis 2 days ago but no indication of aspiration pneumonitis by x-ray. Day 7 ceftriaxone for UTI. Sodium up to 147, BUN up further today. Conjunction with poor oral intake and laboratory signs of dehydration will hydrate with 1 L 1/2 NS. Remains in sinus rhythm by my review of telemetry and exam. Persistent encephalopathy-increase activity as tolerates. Avoid sedating medications. Continue vitamin B 12-will resume oral administration at discharge. Blood sugars stable; blood pressure borderline low-reassess after fluids. 08/25/17 Somnolent, confused. Poor intake with supper last night. Persistent hypernatremia with mild improvement. BUN also improved. Tele reviewed - shows A-fib with normal rate. She went into a-fib around 0500. Hypotension with BP 87/59, UO overall poor over the last few days - give NS 250 mL bolus. CXR from 08/23 reviewed - pulm edema noted; will need to monitor resp status/sats closely. Rocephin day #8 for E. coli UTI. Repeat UC from 08/15 was neg. 08/26/17 Continues to be somnolent, confused. Poor intake. Persistent hypernatremia. Daughter ok with placing midline and starting IVF's. Has remained in NSR since 8am yesterday. UA, performed yesterday d/t somnolence and questionable abdominal pain, + for leuks and bacteria. Urine culture pending. Rocephin day #9 for E. coli UTI. 08/27/17 Repeat UC from 08/25 was positive for rosalba. Will DC Rocephin, s/p 9 days of treatment. Change Ortiz. Na remains elevated at 146 despite starting 1/2NS yesterday. BUN decreased from 43 to 40. Weight is starting to increase; need to monitor closely for pulmonary edema as she required diuresis earlier in her hospital course. Reduce rate of IVF. PAF - continue increased dose of amiodarone. Currently in sinus. Continue therapy as able; pt is limited cognitively and physically. 08/28/17 *CT completed yesterday- possible LLL pneumonia. No intra-abdominal pathology She is not symptomatic, and not febrile. Mild bump in WBC since taken off Ceftriaxone yesterday. Will hold off on restarting abx- Repeat CXR and Labs in AM and monitor for fever. *Weight has stabilized with decrease in IVF. She does not appear overloaded at this time. Will monitor closely due to severe A.S., risk of pulmonary edema. Labs do look a bit better today. She is still not taking much in by mouth. HR is controlled- continue current. Remains in SR at this time. Continue low dose Midodrine for BP support. 08/29/17 Ceftriaxone DC'd yesterday. She appears to be doing well. Afebrile. Mild leukocytosis resolved. Mental status is a bit improved today- she is more conversive. HR is regular at the time of my exam. No evidence of edema. CXR looks good. BG well controlled. Continue supportive medication. Follow up labs in AM. Still not eating or drinking much- continue gentle IVF for now. Weight is down a bit, but overall is stable. 08/30/17 Continue oral vancomycin for C. difficile. This was started on 08/29/17. Antibiotics for UTI have been discontinued. Mild hypokalemia at 3.5 - replace orally. Mg level stable at 1.9. Continue gentle IVF - appetite & oral intake still poor. 08/31/17 More awake and conversational today, but appetite and oral intake remains poor. Continue low volume half-normal saline. Continue oral vancomycin for C. difficile. This was started on 08/29/17. She had 2 bowel movements yesterday. Potassium level has been corrected to 3.9 today. 08/31/17 Breath sounds are decreased in the bases. Her weight is slowly trending back up. She is not having significant GI losses from diarrhea. Will stop IV fluids and monitor oral intake. Continue oral vancomycin for C. difficile, day #4. 09/02/17 Pt improved this am. Pt is close to being discharged but will need to discuss with daughter a safe plan. Pt is a bit somnolent sometimes but that is likely hypoactive delirium and unlikely to improve in hospital. Plan: 09/03/17 Patient continues to improve. Continue PO Vanco for C.Difficile infection x 10-14 days. BG is well controlled. Continue supportive care. 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 Chronic mentation changes- dementia +/- delirium. She is more alert at times during the day, which is an improvement. DC planning. Time spent with patient: greater than 35 minutes Resuscitation Status: Do Not Resuscitate Discharge Plan - Discharge Disposition Discharge Date: 09/04/17 Disposition: 03 To [facility] (SNF) *Condition: Stable Reason For Visit (Visit label in EMR): CAUTI - Discharge Medications *Discharge Medications: New Amiodarone [Pacerone] 200 mg PO DAILY tab Cyanocobalamin (B-12) [Vit. B-12] 1,000 mcg IM [place] ml Docusate Sodium [Colace] 100 mg PO DAILY PRN cap PRN Reason: Constipation Memantine [Namenda] 10 mg PO BID tab PEG 3350 17gm PACKET [Miralax] 17 gm PO DAILY packet Vancomycin Oral Liq 125 mg PO Q6HR 5 Days po.syringe Acetaminophen [Tylenol] 650 mg PO Q5H PRN tab PRN Reason: Discomfort Glucose Oral Gel 40% [Glutose 15] 37.5 gm PO PRN PRN tube PRN Reason: Hypoglycemia Continue Clopidogrel [Plavix] 75 mg PO DAILY Midodrine [Proamatine] 5 mg PO TID Levothyroxine Sodium 50 mcg PO ACB Aspirin [Aspirin EC] 81 mg PO DAILY Sitagliptin Phos/Metformin HCl [Janumet 50-500 mg Tablet] 1 tab PO DAILY Discontinued Amiodarone [Pacerone] 100 mg PO DAILY Ascorbate Calcium [Vitamin C] 1,000 mg PO DAILY Sitagliptin Phos/Metformin HCl [Janumet 50-500 mg Tablet] 1 tab PO BID Memantine HCl [Namenda Xr] 28 mg PO DAILY Cyanocobalamin (Vitamin B-12) [B-12] 5,000 mcg SL DAILY Multivit-Min/FA/Lycopen/Lutein [Centrum Silver Tablet] 1 tab PO DAILY Sulfamethoxazole/Trimethoprim [Bactrim Ds Tablet] 1 tab PO BID Docusate Sodium [Colace] 100 mg PO DAILY - Discharge Packet/Instructions *Diet: Regular. Pureed diet. Regular liquids. *Activity: As tolerated. Fall precautions *Pain Management/Treatment: Per JUN *Wound Care: N/A Additional Instructions: Ortiz catheter. Change Q 30 days. CBC, BMP on Friday. Accuchecks Q AM *Expected Signs/Symptoms: Mild pain. Occasional loose stools. *Notify Physician if: Fever over 101. Worsening SOA or cough. Decline in status. *During Business Hours Contact: Attending *After Business Hours Contact: Attending *Pending Lab/Results: Follow up w/Provider - Referrals/Follow Up *Referrals/Follow Up: Colleen Caballero MD [Primary Care Provider] - (On DC from [facility]) - Patient Handouts Patient Handouts: Urinary Tract Infection in Women (GEN) - Dismissal Complete Discharge Instructions are:: Complete Physician Narrative - Narrative Attestation Narrative: Date: 09/04/17 Time: 1520 Pt is stable and doing well this am. Pt is medically stable and will finish out her C. diff tx at skilled facility. Pt has not had loose BMs for multiple days now. Spoke with daughter at length about tx plan and daughter agreed that best tx plan is to discharge pt to skilled facility today.
== END 2017-09-04 13:40 | DRG 698 ==
LOC: ED 15:08 → MED 15:08 → SUATTDRO 19:26 → MERGE 19:26 → CCU 08-18 23:01 → MED 08-20 18:14
PROVIDERS: ADMIT Internal Medicine Cardiovascular Disease; ATTEND Internal Medicine